=== PATIENT | female | born 1965 | race Caucasian/White ===

== ENCOUNTER 2022-08-14 08:16 | Outpatient (OUT) | payer MEDICARE, SELFPAY ==
--- NOTE | 2022-08-14 08:22 | MR_ITS ---
The [address] [address] Patient Name: YULI ORANTES MRN: [facility]:[id number] date: 1965 Sex: F Assigned Patient Location: MRI Current Patient Location: MRI Accession/Order Number: [id number] Exam Date: 08/14/2022 08:47 Report Date: 08/14/2022 15:36 At the request of: CLARK FERRIS Procedure: MR head/brain wo/w con PROCEDURE: MR head/brain wo/w con COMPARISON: None. HISTORY: Asymmetric Sensorineural Hearing Loss H90.3 ; chronic right sensorineural hearing loss, right ear pain TECHNIQUE: A variety of imaging planes and parameters were utilized for visualization of suspected pathology. Images were performed without and with intravenous Dotarem contrast. FINDINGS: IACS: No evidence of acoustic schwannoma or other posterior fossa mass. INNER EARS: No abnormal signal intensity. MIDDLE EARS: Partially filled with fluid and/or soft tissue. MASTOIDS: Majority of right mastoid air cells are filled with fluid or mucus. CEREBRUM: No edema, hemorrhage, mass, acute infarction, or inappropriate atrophy. CEREBELLUM: No edema, hemorrhage, mass, acute infarction, or inappropriate atrophy. BRAINSTEM: No edema, hemorrhage, mass, acute infarction, or inappropriate atrophy. CSF SPACES: Ventricles, cisterns, and sulci are appropriate for age. No hydrocephalus, subarachnoid hemorrhage, or mass. SINUSES: Limited views demonstrate no significant mucosal thickening or fluid. ORBITS: Limited views are unremarkable. OTHER: No abnormal meningeal or parenchymal enhancement. IMPRESSION: 1. Fluid-filled right mastoid air cells and fluid versus soft tissue filled right middle ear likely contributing to patient's symptoms. 2. No acoustic schwannoma. Electronically authenticated by: TOD EDGE Date: 08/14/2022 15:36
== END 2022-08-14 08:17 ==
LOC: MRI 08:17
PROVIDERS: PCP Family Medicine; Visit Provider Otolaryngology
DX: H90.3 Sensorineural hearing loss, bilateral (principal)
CPT/HCPCS: 70553; A9575

== ENCOUNTER 2022-09-28 09:48 | Outpatient (OUT) | payer MEDICARE, SELFPAY ==
--- NOTE | 2022-09-28 10:00 | ECG_ITS ---
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
--- NOTE | 2022-09-28 10:52 | P.GSHP_ITS ---
History of Present Illness History of Present Illness Chief complaint: right etd Narrative: Patient presents for preadmission testing. The patient reports a long history of fluid in her ears. She also has hearing loss. She denies fever, nausea, vomiting, headache, dizziness, or any other complaints. Review of Systems ROS Narrative REVIEW OF SYSTEMS: Negative except as stated in HPI, ten or more systems reviewed. Constitutional: No fever , chills, weakness ENT: No sore throat or epistaxis Cardiovascular: No edema, chest pain, palpitations, or activity intolerance Respiratory: No shortness of breath, cough, or wheezing Musculoskeletal: No joint pain or swelling Gastrointestinal: No abdominal pain, constipation, diarrhea, or vomiting Genitourinary: No dysuria or hematuria Neurological: No numbness, tingling, weakness, or headache Psychiatric: No mood changes PFSH PFS Medical History (Updated 09/28/22 @ 10:54 by Tawanna Patricio NP) (1982) Surgical History (Updated 09/28/22 @ 10:27 by Tawanna Patricio NP) (1982) Family History (Updated 09/28/22 @ 10:27 by Tawanna Patricio NP) Other Family history of gastric cancer Family history of lung cancer Social History (Updated 09/28/22 @ 10:21 by Tawanna Patricio NP) Within the past year, how often did you have a drink containing alcohol: monthly or less Smoking status: Never smoker Meds Home Medications and Allergies Home Medications Medication Instructions Recorded Confirmed Type amlodipine 10 mg tablet 10 mg PO QDAY 09/28/22 09/28/22 History buspirone 15 mg tablet 15 mg PO TID 09/28/22 09/28/22 History duloxetine 60 mg capsule,delayed 120 mg PO QDAY 09/28/22 09/28/22 History release hydroxyzine pamoate 50 mg capsule 50 mg PO Q8H 09/28/22 09/28/22 History (Vistaril) lamotrigine 100 mg tablet 100 mg PO Q12H 09/28/22 09/28/22 History lisinopril 20 1 tab PO DAILY 09/28/22 09/28/22 History mg-hydrochlorothiazide 25 mg tablet (Zestoretic) lovastatin 20 mg tablet 20 mg PO QDAY 09/28/22 09/28/22 History primidone 50 mg tablet 50 mg PO .as directed 09/28/22 09/28/22 History ropinirole 1 mg tablet 1 mg PO BID 09/28/22 09/28/22 History Allergies Allergy/AdvReac Type Severity Reaction Status Date / Time No Known Drug Allergies Allergy Verified 09/28/22 10:15 Exam Narrative Exam Narrative: Constitutional: Awake, alert, comfortable, well-appearing, nontoxic, interactive , vital signs as charted Head: Normocephalic, atraumatic Eyes: Conjunctiva and lids normal to inspection, pupils normal ENT: Bilateral tympanic membrane effusion, naris patent, posterior oropharynx cl ear, oral mucosa moist Neck: Supple, normal appearance, normal range of motion, no meningeal signs, no lymphadenopathy Respiratory: No respiratory distress, breath sounds clear Cardiovascular: Regular rate and rhythm, strong and regular heart tones Musculoskeletal: Normal gait, no swelling or edema Skin: No rashes or induration, no lesions, only visible skin inspected Neuro: No neurological deficits, normal sensation Psychiatric: Oriented ?3, normal affect Assessment and Plan Assessment and Plan (1) Hearing loss: (2) Dysfunction of right eustachian tube: Plan Right myringotomy and insertion of T-tube scheduled with Dr. Nye 10/06/2022.
[2022-09-28 11:15] LABS: Basophils Percent Auto 0.3 % (0.2-2.0); Eosinophils Absolute Auto 0.2 10^3/uL (0.0-0.7); Eosinophils Percent Auto 2.9 % (0.9-7.0); Hematocrit 41.1 % (36.0-48.0); Hemoglobin 13.3 g/dL (12.0-16.0); Immature Granulocytes Abs Auto 0.04 10^3/uL (0.00-0.03); Immature Granulocytes Pct Auto 0.5 % (0.0-0.5); Lymphocytes Absolute Auto 1.5 10^3/uL (1.2-3.8); Lymphocytes Percent Auto 19.7 % (20.5-60.0); Mean Corpuscular HGB Conc 32.4 g/dL (29.9-35.2); Mean Corpuscular Hemoglobin 28.4 pg (26.7-34.0); Mean Corpuscular Volume 87.8 fL (81.0-99.0); Monocytes Absolute Auto 0.5 10^3/uL (0.3-0.8); Monocytes Percent Auto 6.6 % (1.7-12.0); Neutrophils Absolute Auto 5.3 10^3/uL (1.4-6.5); Platelet Count 260 10^3/uL (150-450); Red Blood Count 4.68 10^6/uL (4.20-5.40); Red Cell Distribution Width 13.2 % (11.0-15.0); White Blood Count 7.5 10^3/uL (4.0-11.0)
== END 2022-09-28 09:49 | disposition home or self-care (01) ==
LOC: PST 09:50
PROVIDERS: PCP Family Medicine; Visit Provider Otolaryngology
DX: Z01.810 Encounter for preprocedural cardiovascular examination (principal); Z01.812 Encounter for preprocedural laboratory examination; H69.81 Other specified disorders of Eustachian tube, right ear
CPT/HCPCS: 36415; 85025; 93005; G0463

== ENCOUNTER 2022-10-06 09:02 | Day surgery (SDC) | payer MEDICARE, SELFPAY ==
[2022-09-28 10:21] VITALS: BP 144/83; PULSE 78; RESP 18; TEMP 36.3; O2SAT 94; BMI 51.6
[2022-10-06] VITALS (11 sets, daily range): BP systolic 112–173; BP diastolic 70–92; PULSE 78–93; RESP 14–26; TEMP 36.4–36.6; O2SAT 89–94; BMI 51.8
--- NOTE | 2022-10-06 | OP_ITS ---
OPERATION DATE: ??10/06/2022 PRIMARY CARE PHYSICIAN:? Harlan Ruiz D.O. SURGEON:? Suzanna Nye M.D. PREOPERATIVE DIAGNOSIS:? Right eustachian tube dysfunction and otitis media with effusion. POSTOPERATIVE DIAGNOSIS: Right eustachian tube dysfunction and otitis media with effusion. PROCEDURE:? Right myringotomy and tube with microdissection, placement of a modified Clem?s T-tube. ANESTHESIA:? General LMA. COMPLICATIONS:? None. FINDINGS:? Right clear middle ear effusion.? Due to clarity of the middle ear effusion, it was collected and sent to be tested for [id number], to rule out CSF in the middle ear. INDICATIONS:? This 57-year-old woman presented with right otitis media with effusion, unresponsive to aggressive medical management. PROCEDURE:? Patient identified in the holding area and taken back to the OR where she was placed in the supine position.? After induction of general anesthesia by LMA, the right ear was approached with the otomicroscope.? An anterior radial myringotomy was performed and the patient was noted to have a clear, colorless middle ear effusion.? A Venturi trap was then used to collect the middle ear effusion, to be tested for [id number].? A modified Clem?s T-tube was then folded and inserted through the myringotomy and opened in the middle ear using microdissection.? Patient tolerated the procedure well and she was awakened and taken to the recovery room in good condition. NOEMI
== END 2022-10-06 13:00 | disposition home or self-care (01) ==
PROVIDERS: PCP Family Medicine; Visit Provider Otolaryngology
PROC: (CPT 69436; principal; 2022-10-06 10:20)
DX: H69.81 Other specified disorders of Eustachian tube, right ear (principal); H65.91 Unspecified nonsuppurative otitis media, right ear; Z79.899 Other long term (current) drug therapy
CPT/HCPCS: 69436; 36415; 86335; 99999; J2704

== ENCOUNTER 2022-10-12 16:27 | Emergency (ER) | payer MEDICARE, SELFPAY ==
[2022-10-12] VITALS (12 sets, daily range): BP systolic 138–140; BP diastolic 72–96; PULSE 74–96; RESP 14–26; TEMP 36.9; O2SAT 90–96; BMI 38.5
--- NOTE | 2022-10-12 16:39 | XR_ITS ---
The [address] [address] Patient Name: YULI ORANTES MRN: [id number] date: 1965 Sex: F Assigned Patient Location: ER Current Patient Location: ER Accession/Order Number: [id number] Exam Date: 10/12/2022 17:22 Report Date: 10/12/2022 18:02 At the request of: DANIEL MALONEY Procedure: XR chest 2V EXAMINATION: XR chest 2V HISTORY: Cough and shortness of breath COMPARISON: None. TECHNIQUE: PA and lateral chest x-rays FINDINGS: The lung parenchyma is free of consolidation or infiltrate. No pneumothorax or pleural effusion. The cardiac, mediastinal and hilar contours are normal. The visualized osseous structures exhibit no gross abnormality. XR/XR chest 2V IMPRESSION: No acute cardiopulmonary abnormality. Electronically authenticated by: GINI COTA Date: 10/12/2022 18:02
--- NOTE | 2022-10-12 16:48 | ED.SOB1 ---
HPI - SOB/Dyspnea General Chief Complaint: Shortness of Breath/Dyspnea Stated Complaint: SHORTNESS OF BREATH Time Seen by Provider: 10/12/22 16:38 Source: patient Mode of arrival: walk-in History of Present Illness HPI Narrative: 49-year-old female presents for cough and shortness breath. She's had it for a week and she is coughing up brown phlegm. She has not had hemoptysis or fever. She took a home Covid test that was negative. She does not smoke and has no history of asthma. MD elicited complaint: shortness of breath, cough, chest pain and asthma attack Related Data Home Medications Medication Instructions Recorded Confirmed amlodipine 10 mg tablet 10 mg PO QDAY 09/28/22 10/06/22 buspirone 15 mg tablet 15 mg PO TID 09/28/22 10/06/22 duloxetine 60 mg capsule,delayed 120 mg PO QDAY 09/28/22 10/06/22 release hydroxyzine pamoate 50 mg capsule 50 mg PO Q8H 09/28/22 10/06/22 (Vistaril) lamotrigine 100 mg tablet 100 mg PO Q12H 09/28/22 10/06/22 lisinopril 20 1 tab PO DAILY 09/28/22 10/06/22 mg-hydrochlorothiazide 25 mg tablet (Zestoretic) lovastatin 20 mg tablet 20 mg PO QDAY 09/28/22 10/06/22 primidone 50 mg tablet 50 mg PO .as directed 09/28/22 10/06/22 ropinirole 1 mg tablet 1 mg PO BID 09/28/22 10/06/22 Previous Rx's Medication Instructions Recorded albuterol sulfate 90 mcg/actuation 1 inh inhalation Q6H PRN shortness 10/12/22 aerosol inhaler of breath or wheezing #6.7 grams azithromycin 250 mg tablet See Rx Instructions PO .COMPLEX #6 10/12/22 (Zithromax Z-Reilly) tabs benzonatate 200 mg capsule 200 mg PO TID PRN cough #20 caps 10/12/22 Allergies Allergy/AdvReac Type Severity Reaction Status Date / Time No Known Drug Allergies Allergy Verified 09/28/22 10:15 [facility] Medical History (Updated 10/12/22 @ 18:35 by Haider Beltran MD) (1982) Surgical History (Updated 09/28/22 @ 10:27 by Tawanna Patricio NP) (1982) Family History (Updated 09/28/22 @ 10:27 by Tawanna Patricio NP) Other Family history of gastric cancer Family history of lung cancer Social History (Updated 09/28/22 @ 10:21 by Tawanna Patricio NP) Within the past year, how often did you have a drink containing alcohol: monthly or less Smoking status: Never smoker Exam Narrative Exam Narrative: Nurses note and vital signs reviewed and patient is not hypoxic. General: The patient appears well and in no apparent distress. Patient is resting comfortably on cart. Skin: Warm, dry, no pallor noted. There is no rash noted. Head: Normocephalic, atraumatic Eye: Normal conjunctiva, no drainage Ears, Nose, Mouth, and Throat: oral mucosa is moist. Nares patent. Cardiovascular: Regular Rate and Rhythm Respiratory: bilateral rhonchi present Back: non-tender GI: ooften nontender Musculoskeletal: The patient has no evidence of calf tenderness, no pitting edema, symmetrical pulses noted bilaterally Neurological: A&O, normal speech Psychiatric: Cooperative Constitutional Vital Signs, click to edit/add: Last Vital Signs Temp 98.4 F 10/12/22 16:34 Pulse 74 10/12/22 17:11 Resp 16 10/12/22 17:51 BP 138/72 10/12/22 16:34 Pulse Ox 96 10/12/22 17:51 O2 Del Method Room Air 10/12/22 17:51 Course Vital Signs Vital signs: Vital Signs Temperature 98.4 F 10/12/22 16:34 Pulse Rate 82 10/12/22 16:34 Respiratory Rate 18 10/12/22 16:34 Blood Pressure 138/72 10/12/22 16:34 Pulse Oximetry 96 10/12/22 16:34 Oxygen Delivery Method Room Air 10/12/22 16:34 Temperature 98.4 F 10/12/22 16:34 Pulse Rate 74 10/12/22 17:11 Respiratory Rate 16 10/12/22 17:51 Blood Pressure 138/72 10/12/22 16:34 Pulse Oximetry 96 10/12/22 17:51 Oxygen Delivery Method Room Air 10/12/22 17:51 MDM - SOB/Dyspnea MDM Narrative Medical decision making narrative: Chest x-ray shows no acute findings. Breath sounds are improved with aerosol treatment and she is discharged home. Treatment diagnosis and follow-up were discussed with the patient. Differential Diagnosis Differential diagnosis: Likely community acquired pneumonia and asthma with exacerbation Imaging Data Chest x-ray: Radiologist's impression: no acute findings Discharge Plan Discharge Chief Complaint: Shortness of Breath/Dyspnea Clinical Impression: Acute upper respiratory infection Patient Disposition: Home, Self-Care Time of Disposition Decision: 18:34 Condition: Good Mode of Transportation: Private Vehicle Prescriptions / Home Meds: New azithromycin [Zithromax Z-Reilly] 250 mg tablet See Rx Instructions .ROUTE .COMPLEX Qty: 6 0RF Rx Instructions: For 250 mg dose pack: take 500 mg today (day 1), then 250 mg for 4 days (days 2-5) benzonatate 200 mg capsule 200 mg PO TID PRN (Reason: cough) Qty: 20 0RF albuterol sulfate 90 mcg/actuation HFA aerosol inhaler 1 inh inhalation Q6H PRN (Reason: shortness of breath or wheezing) Qty: 6.7 0RF No Action duloxetine 60 mg capsule,delayed release(DR/EC) 120 mg PO QDAY ropinirole 1 mg tablet 1 mg PO BID buspirone 15 mg tablet 15 mg PO TID primidone 50 mg tablet 50 mg PO .as directed lamotrigine 100 mg tablet 100 mg PO Q12H lisinopril-hydrochlorothiazide [Zestoretic] 20-25 mg tablet 1 tab PO DAILY amlodipine 10 mg tablet 10 mg PO QDAY lovastatin 20 mg tablet 20 mg PO QDAY hydroxyzine pamoate [Vistaril] 50 mg capsule 50 mg PO Q8H Instructions: Upper Respiratory Infection (ED) Stand Alone Forms: Portal Instructions Referrals: DENNIS ALMEIDA [Primary Care Provider] - 1 week
[2022-10-12] MEDS: ALBUTEROL SULFATE 2.5 MG/3 ML VIAL NEB IH (17:10)
== END 2022-10-12 18:51 | disposition home or self-care (01) ==
PROVIDERS: Emergency Provider Emergency Medicine; PCP Family Medicine
DX: J06.9 Acute upper respiratory infection, unspecified (principal); Z79.899 Other long term (current) drug therapy
CPT/HCPCS: 71046; 94640; 99283

== ENCOUNTER 2022-10-16 09:16 | Outpatient (OUT) | payer MEDICARE, SELFPAY ==
--- NOTE | 2022-10-16 09:31 | CT_ITS ---
[address] [address] Patient Name: YULI ORANTES MRN: [facility]:[id number] date: 1965 Sex: F Assigned Patient Location: CT Current Patient Location: Accession/Order Number: [id number] Exam Date: 10/16/2022 09:40 Report Date: 10/22/2022 12:57 At the request of: CLARK FERRIS Procedure: CT int auditory canals w/o con EXAMINATION: CT int auditory canals w/o con HISTORY: Cerebrospinal fluid otorrhea G96.01 COMPARISON: No relevant comparison available. TECHNIQUE: Thin section Axial and Coronal CT images created without and with IV contrast. Dose reduction techniques were achieved by using automated exposure control and/or adjustment of mA and/or kV according to patient size and/or use of iterative reconstruction technique. FINDINGS: RIGHT EXTERNAL CANAL: No significant stenosis or soft tissue abnormality. TYMPANIC MEMBRANE: Slight thickening compared to left side with tiny focal opening suspected to represent tube placement. OSSICLES: No bony erosion. WINDOWS: No visible narrowing. MIDDLE EAR: Minimal mucosal thickening and small amount of fluid within the dependent posterior aspect. MASTOID: Numerous fluid-filled mastoid air cells which appear to connect to the posterior aspect of the middle ear. INNER EAR: No dehiscence or labyrinthine ossificans. FACIAL CANAL: No appreciable dehiscence or anomalies. IAC: No expansion or asymmetry. JUGULAR FORAMEN: No visible expansion or erosion. CAROTID CANAL: No erosion. LEFT EXTERNAL CANAL: No significant stenosis or soft tissue abnormality. TYMPANIC MEMBRANE: No visible thickening or retraction. OSSICLES: No bony erosion. WINDOWS: No visible narrowing. MIDDLE EAR: No abnormal soft tissue or fluid. MASTOID: No fluid, sclerosis, or soft tissue abnormality. INNER EAR: No dehiscence or labyrinthine ossificans. FACIAL CANAL: No dehiscence or anomalies. IAC: No expansion or asymmetry. JUGULAR FORAMEN: No visible expansion or erosion. CAROTID CANAL: No erosion. OTHER: No additional findings. CT/CT int auditory canals w/o con IMPRESSION: 1. Multiple fluid filled mastoid air cells; mastoiditis? 2. Small amount of fluid within posterior middle ear which appears to connect to the mastoid air cells and may account for the continued drainage. 3. Slight asymmetric thickening of the right tympanic membrane compared to left; inflammatory versus scarring. Electronically authenticated by: TOD EDGE Date: 10/22/2022 12:57
== END 2022-10-16 09:17 | disposition home or self-care (01) ==
LOC: CT 09:16
PROVIDERS: PCP Family Medicine; Visit Provider Otolaryngology
DX: G96.01 Cranial cerebrospinal fluid leak, spontaneous (principal)
CPT/HCPCS: 70480

== ENCOUNTER 2022-11-24 13:34 | Outpatient (OUT) | payer MEDICARE, SELFPAY ==
--- NOTE | 2022-11-24 14:06 | CA_ITS ---
Patient: YULI ORANTES Exam Date: 11/24/2022 : 1965 Gender:F Ordering : DR OLAF ANGUIANO Admission #: [id number] Family : Order #: [id number] CLICK HERE TO VIEW EXAM ECHOCARDIOGRAM REPORT PROCEDURE: CA ECHO DOPPLER COMPLETE INDICATIONS: Dyspnea on exertion, hypertension, diabetes COMPARISON: None. DESCRIPTION: COMPLETE ECHOCARDIOGRAM Real-time transthoracic echocardiography with 2D, M-mode, spectral and color flow Doppler performed. QUALITY: Technically difficult due to patient's condition. LEFT VENTRICLE: Normal chamber size. Normal left ventricular wall thickness. LV EF: Global left ventricular systolic function is difficult to assess but appears preserved; visually estimated ejection fraction is 55 to 60%. Cannot assess regional wall motion abnormality; consider contrast study for better delineation of endocardial borders. DIASTOLIC: Normal diastolic function. ATRIAL SEPTUM: Inadequately seen. LEFT ATRIUM: Normal chamber size. RIGHT ATRIUM: Normal chamber size. RIGHT VENTRICLE: Poorly seen. Normal chamber size. Systolic function appears preserved. TRICUSPID VALVE: Normal mobility and thickness. No regurgitation. Unable to assess right sided pressures due to lack of measurable tricuspid regurgitation. MITRAL VALVE: Normal mobility and thickness. No evidence of mitral valve stenosis. There is no mitral annular calcification. Trivial mitral regurgitation. AORTIC VALVE: Normal trileaflet appearance. Thickened aortic valve. Normal leaflet mobility. No evidence of aortic valve stenosis. No aortic regurgitation. AORTIC ROOT: Normal diameter and appearance. PULMONIC VALVE: Not well visualized. No stenosis. No regurgitation. PERICARDIUM: No evidence of pericardial effusion. IVC: Collapses with inspirations. IVC is normal in size. CONCLUSION: 1. Global left ventricular systolic function is difficult to assess but appears preserved; visually estimated ejection fraction 65 to 60% 2. Cannot assess regional wall motion abnormalitird; consider contrast study for better delineation of endocardial borders 3. Normal diastolic function 4. The right ventricle is poorly seen but appears normal in size and systolic function 5. Valvular structures are poorly seen; no obvious significant valvular abnormalities Adult Echocardiography Procedure Report Left Ventricle LVEDD (3.7 - 5.6 cm): 4.54 cm LVESD (2.2 - 4.0 cm): 2.85 cm LVIVS thickness (0.6 - 1.2 cm): 1.07 cm LVPW thickness (0.5 - 1.0 cm): 1.00 cm e': 0.15 m/s E - e': 5.43 LVOT Max Gradient: 4.42 mm[Hg] LVOT Area (cm2): 1.05 m/s Peak Velocity (LVOT): 1.05 m/s LVOT Diameter 1.98 cm Left Atrium LA Volume Index (2D A2C): 20.58 ml/m2 Left Atrium Systolic Dimension: 3.63 cm Mitral Valve MV E to A Ratio: 1.06 Mitral Valve A-Wave Peak Velocity: 0.74 m/s Mitral Valve E-Wave Peak Velocity: 0.79 m/s Right Ventricle Aorta AO Root Diam: 2.85 cm Aortic Valve AoV Area (Peak Ivcente): 2.13 cm2, 2.13 cm2 Peak Velocity(Antegrade Flow): 1.51 m/s Peak Gradient(Antegrade Flow): 9.15 mm[Hg] Tricuspid Valve Pulmonic Valve Mean Gradient: 3.77 mm[Hg], 3.54 mm[Hg], 4.17 mm[Hg], 3.46 mm[Hg] Mean Velocity: 0.92 m/s, 0.88 m/s, 0.96 m/s, 0.87 m/s Peak Velocity: 1.24 m/s Peak Gradient: 5.68 mm[Hg], 5.99 mm[Hg], 7.06 mm[Hg], 5.99 mm[Hg] Right Atrium Right Atrium Systolic Pressure: 57.06 ml, 57.06 ml Dictated by: Jose Quiñones M.D. on 11/27/2022 at 14:50 Approved by: Jose Quiñones M.D. on 11/27/2022 at 14:53
== END 2022-11-24 13:35 | disposition home or self-care (01) ==
LOC: CARD 13:35
PROVIDERS: PCP Family Medicine; Visit Provider Nurse Practitioner Family
DX: R06.09 Other forms of dyspnea (principal)
CPT/HCPCS: 93306

== ENCOUNTER 2023-01-05 17:59 | Emergency (ER) | payer MEDICARE, SELFPAY ==
[2023-01-05 18:03] VITALS: BP 132/90; PULSE 99; RESP 18; TEMP 36.4; O2SAT 91; BMI 53.9
[2023-01-05 19:23] VITALS: BP 150/93; PULSE 88; RESP 20; TEMP 36.7; O2SAT 95; BMI 53.9
--- NOTE | 2023-01-05 19:50 | CT_ITS ---
[address] [address] Patient Name: YULI ORANTES MRN: [facility]:[id number] date: 1965 Sex: F Assigned Patient Location: ER Current Patient Location: ER Accession/Order Number: [id number] Exam Date: 01/05/2023 20:06 Report Date: 01/05/2023 21:01 At the request of: MANUEL MORENO Procedure: CT head/brain wo con EXAM: CT head/brain wo con HISTORY: headache COMPARISON: MRI brain 08/14/2022 TECHNIQUE: Axial CT scans through the head were obtained without IV contrast administration. Dose reduction techniques were achieved by using: automated exposure control and/or adjustment of mA and /or kV according to patient size and/or use of iterative reconstruction technique. FINDINGS: There is no acute intracranial hemorrhage or abnormal extra-axial fluid collection. No mass effect or midline shift is seen. There is no evidence of large acute territorial infarction. There is no hydrocephalus. To the limit of CT, the posterior fossa appears unremarkable. The calvaria and extra cranial soft tissues are unremarkable. The visualized orbits show no abnormal mass. There is small air-fluid level and frothy secretions in the partially visualized right maxillary sinus. There is partial opacification of right-sided external auditory canal, middle ear cavity, eustachian tube, aditus ad antrum and mastoid air cells. CT/CT head/brain wo con IMPRESSION: No acute intracranial process. Small air-fluid level and frothy secretions in the partially visualized right maxillary sinus, consistent with acute sinusitis. Partial opacification of right-sided external auditory canal, middle ear cavity, eustachian tube, aditus ad antrum and mastoid air cells, could be related to mastoiditis and otitis media/cholesteatoma. Direct visualization is recommended for further evaluation.. Electronically authenticated by: LEBRON GARCIA Date: 01/05/2023 21:01
--- NOTE | 2023-01-05 19:53 | ED.GENADUL1 ---
Documented by User: PAVAN Thompson 01/05/23 21:19 HPI - General Adult General Chief complaint: Headache Stated complaint: Headache Time Seen by Provider: 01/05/23 18:07 Source: patient Mode of arrival: walk-in Limitations: no limitations History of Present Illness HPI narrative: 57-year-old female presents with a frontal headache and right ear pain for the past 2 days. No history of headaches and headache was gradual in onset. Denies thunderclap headache. She states that she had a tube placed by Dr. Nye a year ago that is been draining for the past year and drainage was tested and came back positive for spinal fluid. She states that she has surgery planned in a couple of months to remove part of her bone in her scalp due to a hole in her head. She is complaining of right-sided neck pain. Admits to photophobia. Denies fever, dizziness, vision changes, n/v Related Data Home Medications Medication Instructions Recorded Confirmed amlodipine 10 mg tablet 10 mg PO QDAY 09/28/22 10/06/22 buspirone 15 mg tablet 15 mg PO TID 09/28/22 10/06/22 duloxetine 60 mg capsule,delayed 120 mg PO QDAY 09/28/22 10/06/22 release hydroxyzine pamoate 50 mg capsule 50 mg PO Q8H 09/28/22 10/06/22 (Vistaril) lamotrigine 100 mg tablet 100 mg PO Q12H 09/28/22 10/06/22 lisinopril 20 1 tab PO DAILY 09/28/22 10/06/22 mg-hydrochlorothiazide 25 mg tablet (Zestoretic) lovastatin 20 mg tablet 20 mg PO QDAY 09/28/22 10/06/22 primidone 50 mg tablet 50 mg PO .as directed 09/28/22 10/06/22 ropinirole 1 mg tablet 1 mg PO BID 09/28/22 10/06/22 Previous Rx's Medication Instructions Recorded albuterol sulfate 90 mcg/actuation 1 inh inhalation Q6H PRN shortness 10/12/22 aerosol inhaler of breath or wheezing #6.7 grams azithromycin 250 mg tablet See Rx Instructions PO .COMPLEX #6 10/12/22 (Zithromax Z-Reilly) tabs benzonatate 200 mg capsule 200 mg PO TID PRN cough #20 caps 10/12/22 amoxicillin 875 mg-potassium 1 tab PO Q12H 10 days #20 tabs 01/05/23 clavulanate 125 mg tablet Allergies Allergy/AdvReac Type Severity Reaction Status Date / Time No Known Drug Allergies Allergy Verified 01/05/23 19:23 Review of Systems ROS Status of ROS 10 or more systems reviewed and unremarkable except as noted in history and below PFSH PFSH Medical History (Updated 01/05/23 @ 21:15 by PAVAN Thompson) Anxiety ?F41.9 - Anxiety disorder, unspecified (ICD-10) Arthritis ?M19.90 - Unspecified osteoarthritis, unspecified site (ICD-10) Bipolar disorder ?F31.9 - Bipolar disorder, unspecified (ICD-10) Depression ?F32.A - Depression, unspecified (ICD-10) Dysfunction of both eustachian tubes ?H69.93 - Unspecified Eustachian tube disorder, bilateral (ICD-10) Dysfunction of right eustachian tube ?H69.91 - Unspecified Eustachian tube disorder, right ear (ICD-10) Hearing loss ?H91.90 - Unspecified hearing loss, unspecified ear (ICD-10) High cholesterol ?E78.00 - Pure hypercholesterolemia, unspecified (ICD-10) Hypertension ?I10 - Essential (primary) hypertension (ICD-10) Lung mass (1982) ?R91.8 - Other nonspecific abnormal finding of lung field (ICD-10) OCD (obsessive compulsive disorder) ?F42.9 - Obsessive-compulsive disorder, unspecified (ICD-10) Surgical History (Updated 09/28/22 @ 10:27 by Tawanna Patricio NP) History of arthroscopy of knee ?Z98.890 - Other specified postprocedural states (ICD-10) History of section ?Z98.891 - History of uterine scar from previous surgery (ICD-10) History of cholecystectomy ?Z90.49 - Acquired absence of other specified parts of digestive tract (ICD-10) History of colonoscopy ?Z98.890 - Other specified postprocedural states (ICD-10) History of foot surgery ?Z98.890 - Other specified postprocedural states (ICD-10) History of hysterectomy ?Z90.710 - Acquired absence of both cervix and uterus (ICD-10) History of lung biopsy (1982) ?Z98.890 - Other specified postprocedural states (ICD-10) Family History (Updated 09/28/22 @ 10:27 by Tawanna Patricio NP) Other Family history of gastric cancer Family history of lung cancer Social History (Updated 09/28/22 @ 10:21 by Tawanna Patricio NP) Within the past year, how often did you have a drink containing alcohol: monthly or less Smoking status: Never smoker Exam Narrative Exam Narrative: General: alert, no distress, talking in full an complete sentences skin: warm, dry, intact head: normocephalic, atraumatic eyes: PERRLA, EOMI, normal conjunctiva ears: Clear drainage from the right ear canal and unable to visualize TM, external ear normal nose: nares patent throat: no stridor, uvula midline neck: supple, trachea midline cardiac: +S1/S1. no murmur respiratory: lungs CTA, non-labored, no wheezing, no retractions extremities: FROM x 4, strength +5/5 neuro: A&Ox3 psych: appropriate mood and affect, cooperative Constitutional Vital Signs, click to edit/add: Last Vital Signs Temp 98.1 F 01/05/23 19:23 Pulse 85 01/05/23 21:17 Resp 22 01/05/23 21:17 BP 134/82 01/05/23 21:26 Pulse Ox 95 01/05/23 21:17 O2 Del Method Room Air 01/05/23 19:23 Course Vital Signs Vital signs: Vital Signs Temperature 97.6 F 01/05/23 18:03 Pulse Rate 99 H 01/05/23 18:03 Respiratory Rate 18 01/05/23 18:03 Blood Pressure 132/90 01/05/23 18:03 Pulse Oximetry 91 L 01/05/23 18:03 Oxygen Delivery Method Room Air 01/05/23 18:03 Temperature 98.1 F 01/05/23 19:23 Pulse Rate 85 01/05/23 21:17 Respiratory Rate 22 01/05/23 21:17 Blood Pressure 134/82 01/05/23 21:26 Pulse Oximetry 95 01/05/23 21:17 Oxygen Delivery Method Room Air 01/05/23 19:23 Medical Decision Making MDM Narrative Medical decision making narrative: Dr. Nye consulted who states that she has CSF otorrhea and recommends transfer to facility as that is where she is having her surgical intervention. Blood cultures pending. Patient is fully moving her neck and does not have any nuchal rigidity. patient states that this is not scheduled for another 2 months. Patient is complaining of pain will be given Almont. WBC 12.4. ESR 82. CRP 2.9. No acute findings on final read of chest x-ray. Respiratory panel negative. Final read of head CT without contrast shows small air-fluid level and frothy secretions in the right maxillary sinus consistent with acute sinusitis. Was also addressed a possible mastoiditis or acute otitis media. She does not have mastoid tenderness. She will be given a dose of Toradol. Per Dr. Peck, will give a dose of Unasyn here and a prescription for Augmentin and follow-up with ENT. F/u with PCP. afebrile, not tachypneic, not tachycardic, tolerating p.o., not hypoxic, non toxic appearing and ambulating at baseline and hemodynamically stable to be d/c. answered all questions. educated on SE of meds. pt in agreement with tx. educated when to return to ER. Lab Data Lab results reviewed: Yes I reviewed the patient's lab results Labs: Lab Results 01/05/23 01/05/23 Range/Units 20:05 20:19 WBC 12.4 H (4.0-11.0) 10^3/uL RBC 5.08 (4.20-5.40) 10^6/uL Hgb 14.6 (12.0-16.0) g/dL Hct 45.6 (36.0-48.0) % MCV 89.8 (81.0-99.0) fL MCH 28.7 (26.7-34.0) pg MCHC 32.0 (29.9-35.2) g/dL RDW 13.5 (11.0-15.0) % Plt Count 304 (150-450) 10^3/uL MPV 9.3 L (9.5-13.5) fL Neut % (Auto) 70.8 (43.0-75.0) % Lymph % (Auto) 19.2 L (20.5-60.0) % Harrison % (Auto) 7.4 (1.7-12.0) % Eos % (Auto) 2.1 (0.9-7.0) % Baso % (Auto) 0.3 (0.2-2.0) % Neut # (Auto) 8.7 H (1.4-6.5) 10^3/uL Lymph # (Auto) 2.4 (1.2-3.8) 10^3/uL Harrison # (Auto) 0.9 H (0.3-0.8) 10^3/uL Eos # (Auto) 0.3 (0.0-0.7) 10^3/uL Baso # (Auto) 0.0 (0.0-0.1) 10^3/uL Abs Immat Gran (auto) 0.03 (0.00-0.03) 10^3/uL Imm/Tot Granulo (auto) 0.2 (0.0-0.5) % ESR 82 H (<=30) mm/hr Sodium 135 L (136-145) mmol/L Potassium 3.9 (3.5-5.1) mmol/L Chloride 97 L (98-107) mmol/L Carbon Dioxide 32.0 (21.0-32.0) mmol/L Anion Gap 9.9 BUN 21.0 H (7.0-18.0) mg/dL Creatinine 0.74 (0.55-1.02) mg/dL Est GFR ( Amer) >60 (>=60) Est GFR (Non-Af Amer) >60 (>=60) BUN/Creatinine Ratio 28.4 Glucose 93 (74-106) mg/dL Lactate 1.2 (0.4-2.0) mmol/L Calcium 10.0 (8.5-10.1) mg/dL Total Bilirubin 0.3 (0.2-1.0) mg/dL AST 20 (15-37) U/L ALT 27 (14-59) U/L Alkaline Phosphatase 83 (46-116) U/L C-Reactive Protein 2.9 H (<=1.0) mg/dL Total Protein 8.6 H (6.4-8.2) g/dL Albumin 3.9 (3.4-5.0) g/dL Globulin 4.7 g/dL Albumin/Globulin Ratio 0.8 Adenovirus (PCR) Not detected (NOT DETECTE) C. pneumoniae DNA (PCR) Not detected (NOT DETECTE) Coronavirus Type OC43 Not detected (NOT DETECTE) Coronavirus Type HKU1 Not detected (NOT DETECTE) Coronavirus Type 229E Not detected (NOT DETECTE) Coronavirus Type NL63 Not detected (NOT DETECTE) Human Metapneumovir PCR Not detected (NOT DETECTE) M. pneumoniae (PCR) Not detected (NOT DETECTE) Parainfluenza PCR Not detected (NOT DETECTE) Parainfluenza 2 (PCR) Not detected (NOT DETECTE) Parainfluenza 3 (PCR) Not detected (NOT DETECTE) Parainfluenza 4 (PCR) Not detected (NOT DETECTE) RSV (RT-PCR) Not detected (NOT DETECTE) Entero/Rhino (PCR) Not detected (NOT DETECTE) SARS-CoV-2 (PCR) Not detected (NOT DETECTE) Bordetella pertussis (PCR) Not detected (NOT DETECTE) B parapertussis DNA PCR Not detected (NOT DETECTE) Influenza Type A (PCR) Not detected (NOT DETECTE) Influenza Type B (PCR) Not detected (NOT DETECTE) Imaging Data CT scan - head: Attestation: I have reviewed the pertinent imaging results. Radiologist's impression: CT/CT head/brain wo con IMPRESSION: No acute intracranial process. Small air-fluid level and frothy secretions in the partially visualized right maxillary sinus, consistent with acute sinusitis. Partial opacification of right-sided external auditory canal, middle ear cavity, eustachian tube, aditus ad antrum and mastoid air cells, could be related to mastoiditis and otitis media/cholesteatoma. Direct visualization is recommended for further evaluation.. Chest x-ray: Attestation: I have reviewed the pertinent imaging results. Radiologist's impression: XR/XR chest 1V IMPRESSION: No acute cardiopulmonary abnormality. Discharge Plan Discharge Chief Complaint: Headache Clinical Impression: CSF otorrhea Headache Qualifiers: Headache type: unspecified Headache chronicity pattern: acute headache Intractability: not intractable Qualified Code(s): R51.9 - Headache, unspecified Acute maxillary sinusitis Qualifiers: Recurrence: non-recurrent Qualified Code(s): J01.00 - Acute maxillary sinusitis, unspecified Otitis media Qualifiers: Otitis media type: unspecified Chronicity: acute Qualified Code(s): H66.90 - Otitis media, unspecified, unspecified ear Patient Disposition: Home, Self-Care Time of Disposition Decision: 21:14 Condition: Good Mode of Transportation: Private Vehicle Prescriptions / Home Meds: New amoxicillin-pot clavulanate 875-125 mg tablet 1 tab PO Q12H 10 Days Qty: 20 0RF No Action duloxetine 60 mg capsule,delayed release(DR/EC) 120 mg PO QDAY ropinirole 1 mg tablet 1 mg PO BID buspirone 15 mg tablet 15 mg PO TID primidone 50 mg tablet 50 mg PO .as directed lamotrigine 100 mg tablet 100 mg PO Q12H lisinopril-hydrochlorothiazide [Zestoretic] 20-25 mg tablet 1 tab PO DAILY amlodipine 10 mg tablet 10 mg PO QDAY lovastatin 20 mg tablet 20 mg PO QDAY hydroxyzine pamoate [Vistaril] 50 mg capsule 50 mg PO Q8H azithromycin [Zithromax Z-Reilly] 250 mg tablet See Rx Instructions .ROUTE .COMPLEX Qty: 6 0RF Rx Instructions: For 250 mg dose pack: take 500 mg today (day 1), then 250 mg for 4 days (days 2-5) benzonatate 200 mg capsule 200 mg PO TID PRN (Reason: cough) Qty: 20 0RF albuterol sulfate 90 mcg/actuation HFA aerosol inhaler 1 inh inhalation Q6H PRN (Reason: shortness of breath or wheezing) Qty: 6.7 0RF Instructions: Sinusitis (ED), Acute Headache (ED) Stand Alone Forms: Portal Instructions Referrals: DENNIS ALMEIDA [Primary Care Provider] - 1 week Suzanna Nye MD [Physician] - As soon as possible Discharge Date/Time: 01/05/23 22:42 Documented by User: Phyllis Peck MD 01/06/23 02:54 HPI - General Adult General Chief complaint: Headache Stated complaint: Headache Time Seen by Provider: 01/05/23 18:07 Related Data Home Medications Medication Instructions Recorded Confirmed amlodipine 10 mg tablet 10 mg PO QDAY 09/28/22 10/06/22 buspirone 15 mg tablet 15 mg PO TID 09/28/22 10/06/22 duloxetine 60 mg capsule,delayed 120 mg PO QDAY 09/28/22 10/06/22 release hydroxyzine pamoate 50 mg capsule 50 mg PO Q8H 09/28/22 10/06/22 (Vistaril) lamotrigine 100 mg tablet 100 mg PO Q12H 09/28/22 10/06/22 lisinopril 20 1 tab PO DAILY 09/28/22 10/06/22 mg-hydrochlorothiazide 25 mg tablet (Zestoretic) lovastatin 20 mg tablet 20 mg PO QDAY 09/28/22 10/06/22 primidone 50 mg tablet 50 mg PO .as directed 09/28/22 10/06/22 ropinirole 1 mg tablet 1 mg PO BID 09/28/22 10/06/22 Previous Rx's Medication Instructions Recorded albuterol sulfate 90 mcg/actuation 1 inh inhalation Q6H PRN shortness 10/12/22 aerosol inhaler of breath or wheezing #6.7 grams azithromycin 250 mg tablet See Rx Instructions PO .COMPLEX #6 10/12/22 (Zithromax Z-Reilly) tabs benzonatate 200 mg capsule 200 mg PO TID PRN cough #20 caps 10/12/22 amoxicillin 875 mg-potassium 1 tab PO Q12H 10 days #20 tabs 01/05/23 clavulanate 125 mg tablet Allergies Allergy/AdvReac Type Severity Reaction Status Date / Time No Known Drug Allergies Allergy Verified 01/05/23 19:23 [facility] Medical History (Updated 01/05/23 @ 21:15 by PAVAN Thompson) Anxiety ?F41.9 - Anxiety disorder, unspecified (ICD-10) Arthritis ?M19.90 - Unspecified osteoarthritis, unspecified site (ICD-10) Bipolar disorder ?F31.9 - Bipolar disorder, unspecified (ICD-10) Depression ?F32.A - Depression, unspecified (ICD-10) Dysfunction of both eustachian tubes ?H69.93 - Unspecified Eustachian tube disorder, bilateral (ICD-10) Dysfunction of right eustachian tube ?H69.91 - Unspecified Eustachian tube disorder, right ear (ICD-10) Hearing loss ?H91.90 - Unspecified hearing loss, unspecified ear (ICD-10) High cholesterol ?E78.00 - Pure hypercholesterolemia, unspecified (ICD-10) Hypertension ?I10 - Essential (primary) hypertension (ICD-10) Lung mass (1982) ?R91.8 - Other nonspecific abnormal finding of lung field (ICD-10) OCD (obsessive compulsive disorder) ?F42.9 - Obsessive-compulsive disorder, unspecified (ICD-10) Surgical History (Updated 09/28/22 @ 10:27 by Tawanna Patricio NP) History of arthroscopy of knee ?Z98.890 - Other specified postprocedural states (ICD-10) History of section ?Z98.891 - History of uterine scar from previous surgery (ICD-10) History of cholecystectomy ?Z90.49 - Acquired absence of other specified parts of digestive tract (ICD-10) History of colonoscopy ?Z98.890 - Other specified postprocedural states (ICD-10) History of foot surgery ?Z98.890 - Other specified postprocedural states (ICD-10) History of hysterectomy ?Z90.710 - Acquired absence of both cervix and uterus (ICD-10) History of lung biopsy (1982) ?Z98.890 - Other specified postprocedural states (ICD-10) Family History (Updated 09/28/22 @ 10:27 by Tawanna Patricio NP) Other Family history of gastric cancer Family history of lung cancer Social History (Updated 09/28/22 @ 10:21 by Tawanna Patricio NP) Within the past year, how often did you have a drink containing alcohol: monthly or less Smoking status: Never smoker Exam Constitutional Vital Signs, click to edit/add: Last Vital Signs Temp 98.1 F 01/05/23 19:23 Pulse 85 01/05/23 21:17 Resp 22 01/05/23 21:17 BP 134/82 01/05/23 21:26 Pulse Ox 95 01/05/23 21:17 O2 Del Method Room Air 01/05/23 19:23 Course Vital Signs Vital signs: Vital Signs Temperature 97.6 F 01/05/23 18:03 Pulse Rate 99 H 01/05/23 18:03 Respiratory Rate 18 01/05/23 18:03 Blood Pressure 132/90 01/05/23 18:03 Pulse Oximetry 91 L 01/05/23 18:03 Oxygen Delivery Method Room Air 01/05/23 18:03 Temperature 98.1 F 01/05/23 19:23 Pulse Rate 85 01/05/23 21:17 Respiratory Rate 22 01/05/23 21:17 Blood Pressure 134/82 01/05/23 21:26 Pulse Oximetry 95 01/05/23 21:17 Oxygen Delivery Method Room Air 01/05/23 19:23 Medical Decision Making MDM Narrative Medical decision making narrative: Dr. Nye consulted who states that she has CSF otorrhea and recommends transfer to facility as that is where she is having her surgical intervention. Blood cultures pending. Patient is fully moving her neck and does not have any nuchal rigidity. patient states that this is not scheduled for another 2 months. Patient is complaining of pain will be given Almont. WBC 12.4. ESR 82. CRP 2.9. No acute findings on final read of chest x-ray. Respiratory panel negative. Final read of head CT without contrast shows small air-fluid level and frothy secretions in the right maxillary sinus consistent with acute sinusitis. Was also addressed a possible mastoiditis or acute otitis media. She does not have mastoid tenderness. She will be given a dose of Toradol. Per Dr. Peck, will give a dose of Unasyn here and a prescription for Augmentin and follow-up with ENT. F/u with PCP. afebrile, not tachypneic, not tachycardic, tolerating p.o., not hypoxic, non toxic appearing and ambulating at baseline and hemodynamically stable to be d/c. answered all questions. educated on SE of meds. pt in agreement with tx. educated when to return to ER. Patient was seen and examined in conjunction with the physician assistants. 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 She has been seen by ENT at [facility] in [place], [place] with recommendation for a surgical procedure that is planned to be done in February. The patient states she has a bifrontal headache behind her eyes. There is also some right-sided ear pain and the drainage that she has been having associated with her CSF leak. She denies any change in the color of the drainage. She denies any fevers or chills. She has no nuchal rigidity and easily moves her head back and forth up and down with no discomfort with chin to chest. We did discuss this with Dr. Nye who has not seen the patient and did not evaluate her but thought that she could be experiencing meningitis and should be transferred to [facility]. I discussed this with the patient who does not feel that she is in that much pain or in general is sick. She did agree to some blood work. Her CBC with differential shows a white count of 12.4. She has elevated inflammatory markers with a normal lactic acid, normal electrolytes, blood cultures are pending. She was medicated with oral Zofran and Almont without clinical improvement in her headache at which time an IV was placed and she was medicated with IV fluids and Toradol as well as 3 g of IV Unasyn when her CT scan showed the air-fluid level in frothy secretions in the right maxillary sinus. The patient feels comfortable being discharged home. She will follow-up as an outpatient and receive a prescription for ibuprofen 600 mg and Augmentin to use for the next 10 days. She was strongly encouraged to return to emergency department for fevers, worsening pain, photophobia dizziness or any nuchal rigidity/neck pain or stiffness. She is in agreement with this plan. Lab Data Labs: Lab Results 01/05/23 01/05/23 Range/Units 20:05 20:19 WBC 12.4 H (4.0-11.0) 10^3/uL RBC 5.08 (4.20-5.40) 10^6/uL Hgb 14.6 (12.0-16.0) g/dL Hct 45.6 (36.0-48.0) % MCV 89.8 (81.0-99.0) fL MCH 28.7 (26.7-34.0) pg MCHC 32.0 (29.9-35.2) g/dL RDW 13.5 (11.0-15.0) % Plt Count 304 (150-450) 10^3/uL MPV 9.3 L (9.5-13.5) fL Neut % (Auto) 70.8 (43.0-75.0) % Lymph % (Auto) 19.2 L (20.5-60.0) % Harrison % (Auto) 7.4 (1.7-12.0) % Eos % (Auto) 2.1 (0.9-7.0) % Baso % (Auto) 0.3 (0.2-2.0) % Neut # (Auto) 8.7 H (1.4-6.5) 10^3/uL Lymph # (Auto) 2.4 (1.2-3.8) 10^3/uL Harrison # (Auto) 0.9 H (0.3-0.8) 10^3/uL Eos # (Auto) 0.3 (0.0-0.7) 10^3/uL Baso # (Auto) 0.0 (0.0-0.1) 10^3/uL Abs Immat Gran (auto) 0.03 (0.00-0.03) 10^3/uL Imm/Tot Granulo (auto) 0.2 (0.0-0.5) % ESR 82 H (<=30) mm/hr Sodium 135 L (136-145) mmol/L Potassium 3.9 (3.5-5.1) mmol/L Chloride 97 L (98-107) mmol/L Carbon Dioxide 32.0 (21.0-32.0) mmol/L Anion Gap 9.9 BUN 21.0 H (7.0-18.0) mg/dL Creatinine 0.74 (0.55-1.02) mg/dL Est GFR ( Amer) >60 (>=60) Est GFR (Non-Af Amer) >60 (>=60) BUN/Creatinine Ratio 28.4 Glucose 93 (74-106) mg/dL Lactate 1.2 (0.4-2.0) mmol/L Calcium 10.0 (8.5-10.1) mg/dL Total Bilirubin 0.3 (0.2-1.0) mg/dL AST 20 (15-37) U/L ALT 27 (14-59) U/L Alkaline Phosphatase 83 (46-116) U/L C-Reactive Protein 2.9 H (<=1.0) mg/dL Total Protein 8.6 H (6.4-8.2) g/dL Albumin 3.9 (3.4-5.0) g/dL Globulin 4.7 g/dL Albumin/Globulin Ratio 0.8 Adenovirus (PCR) Not detected (NOT DETECTE) C. pneumoniae DNA (PCR) Not detected (NOT DETECTE) Coronavirus Type OC43 Not detected (NOT DETECTE) Coronavirus Type HKU1 Not detected (NOT DETECTE) Coronavirus Type 229E Not detected (NOT DETECTE) Coronavirus Type NL63 Not detected (NOT DETECTE) Human Metapneumovir PCR Not detected (NOT DETECTE) M. pneumoniae (PCR) Not detected (NOT DETECTE) Parainfluenza PCR Not detected (NOT DETECTE) Parainfluenza 2 (PCR) Not detected (NOT DETECTE) Parainfluenza 3 (PCR) Not detected (NOT DETECTE) Parainfluenza 4 (PCR) Not detected (NOT DETECTE) RSV (RT-PCR) Not detected (NOT DETECTE) Entero/Rhino (PCR) Not detected (NOT DETECTE) SARS-CoV-2 (PCR) Not detected (NOT DETECTE) Bordetella pertussis (PCR) Not detected (NOT DETECTE) B parapertussis DNA PCR Not detected (NOT DETECTE) Influenza Type A (PCR) Not detected (NOT DETECTE) Influenza Type B (PCR) Not detected (NOT DETECTE) Discharge Plan Discharge Chief Complaint: Headache Clinical Impression: CSF otorrhea Headache Qualifiers: Headache type: unspecified Headache chronicity pattern: acute headache Intractability: not intractable Qualified Code(s): R51.9 - Headache, unspecified Acute maxillary sinusitis Qualifiers: Recurrence: non-recurrent Qualified Code(s): J01.00 - Acute maxillary sinusitis, unspecified Otitis media Qualifiers: Otitis media type: unspecified Chronicity: acute Qualified Code(s): H66.90 - Otitis media, unspecified, unspecified ear Patient Disposition: Home, Self-Care Time of Disposition Decision: 21:14 Condition: Good Mode of Transportation: Private Vehicle Prescriptions / Home Meds: New amoxicillin-pot clavulanate 875-125 mg tablet 1 tab PO Q12H 10 Days Qty: 20 0RF No Action duloxetine 60 mg capsule,delayed release(DR/EC) 120 mg PO QDAY ropinirole 1 mg tablet 1 mg PO BID buspirone 15 mg tablet 15 mg PO TID primidone 50 mg tablet 50 mg PO .as directed lamotrigine 100 mg tablet 100 mg PO Q12H lisinopril-hydrochlorothiazide [Zestoretic] 20-25 mg tablet 1 tab PO DAILY amlodipine 10 mg tablet 10 mg PO QDAY lovastatin 20 mg tablet 20 mg PO QDAY hydroxyzine pamoate [Vistaril] 50 mg capsule 50 mg PO Q8H azithromycin [Zithromax Z-Reilly] 250 mg tablet See Rx Instructions .ROUTE .COMPLEX Qty: 6 0RF Rx Instructions: For 250 mg dose pack: take 500 mg today (day 1), then 250 mg for 4 days (days 2-5) benzonatate 200 mg capsule 200 mg PO TID PRN (Reason: cough) Qty: 20 0RF albuterol sulfate 90 mcg/actuation HFA aerosol inhaler 1 inh inhalation Q6H PRN (Reason: shortness of breath or wheezing) Qty: 6.7 0RF Instructions: Sinusitis (ED), Acute Headache (ED) Stand Alone Forms: Portal Instructions Referrals: DENNIS ALMEIDA [Primary Care Provider] - 1 week Suzanna yNe MD [Physician] - As soon as possible Discharge Date/Time: 01/05/23 22:42
--- NOTE | 2023-01-05 19:57 | XR_ITS ---
The [address] [address] Patient Name: YULI ORANTES MRN: [id number] date: 1965 Sex: F Assigned Patient Location: ER Current Patient Location: ER Accession/Order Number: [id number] Exam Date: 01/05/2023 20:06 Report Date: 01/05/2023 20:40 At the request of: MANUEL MORENO Procedure: XR chest 1V EXAMINATION: XR chest 1V HISTORY: Pain COMPARISON: None. TECHNIQUE: Portable chest FINDINGS: The lung parenchyma is free of consolidation or infiltrate. No pneumothorax or pleural effusion. The cardiac, mediastinal and hilar contours are normal. The visualized osseous structures exhibit no gross abnormality. XR/XR chest 1V IMPRESSION: No acute cardiopulmonary abnormality. Electronically authenticated by: GINI COTA Date: 01/05/2023 20:40
[2023-01-05 20:17] LABS: Adenovirus NOT DETECTED (NOT DETECTE); Bordetella parapertussis NOT DETECTED (NOT DETECTE); Coronavirus 229E NOT DETECTED (NOT DETECTE); Coronavirus HKU1 NOT DETECTED (NOT DETECTE); Coronavirus NL63 NOT DETECTED (NOT DETECTE); Coronavirus OC43 NOT DETECTED (NOT DETECTE); Human Metapneumovirus NOT DETECTED (NOT DETECTE); Human Rhinovirus/Enterovirus NOT DETECTED (NOT DETECTE); Influenza A NOT DETECTED (NOT DETECTE); Influenza B NOT DETECTED (NOT DETECTE); Mycoplasma pneumoniae NOT DETECTED (NOT DETECTE); Parainfluenza Virus 1 NOT DETECTED (NOT DETECTE); Parainfluenza Virus 2 NOT DETECTED (NOT DETECTE); Parainfluenza Virus 3 NOT DETECTED (NOT DETECTE); Parainfluenza Virus 4 NOT DETECTED (NOT DETECTE); Respiratory Syncytial Virus NOT DETECTED (NOT DETECTE); SARS-CoV-2 NOT DETECTED (NOT DETECTE)
[2023-01-05] MEDS: HYDROCODONE/ACET 5-325 MG TABLET 1 TAB PO (20:17)
[2023-01-05 20:39] LABS: Basophils Percent Auto 0.3 % (0.2-2.0); Eosinophils Absolute Auto 0.3 10^3/uL (0.0-0.7); Eosinophils Percent Auto 2.1 % (0.9-7.0); Hematocrit 45.6 % (36.0-48.0); Hemoglobin 14.6 g/dL (12.0-16.0); Immature Granulocytes Abs Auto 0.03 10^3/uL (0.00-0.03); Immature Granulocytes Pct Auto 0.2 % (0.0-0.5); Lymphocytes Absolute Auto 2.4 10^3/uL (1.2-3.8); Lymphocytes Percent Auto 19.2 % (20.5-60.0); Mean Corpuscular Hemoglobin 28.7 pg (26.7-34.0); Mean Corpuscular Volume 89.8 fL (81.0-99.0); Mean Platelet Volume 9.3 fL (9.5-13.5); Monocytes Absolute Auto 0.9 10^3/uL (0.3-0.8); Monocytes Percent Auto 7.4 % (1.7-12.0); Neutrophils Absolute Auto 8.7 10^3/uL (1.4-6.5); Neutrophils Percent Auto 70.8 % (43.0-75.0); Platelet Count 304 10^3/uL (150-450); Red Blood Count 5.08 10^6/uL (4.20-5.40); Red Cell Distribution Width 13.5 % (11.0-15.0); White Blood Count 12.4 10^3/uL (4.0-11.0)
[2023-01-05 20:44] LABS: Erythrocyte Sedimentation Rate 82 mm/hr (<=30)
[2023-01-05 21:00] LABS: Lactate/Lactic Acid 1.2 mmol/L (0.4-2.0)
[2023-01-05 21:07] LABS: Alanine Aminotransferase 27 U/L (14-59); Albumin Globulin Ratio 0.8; Albumin Level 3.9 g/dL (3.4-5.0); Alkaline Phosphatase 83 U/L (46-116); Anion Gap 9.9; Aspartate Amino Transferase 20 U/L (15-37); BUN Creatinine Ratio 28.4; Bilirubin Total 0.3 mg/dL (0.2-1.0); Chloride 97 mmol/L (98-107); Estimated GFR (African America >60 (>=60); Estimated GFR (Non-African Ame >60 (>=60); Globulin 4.7 g/dL; Glucose 93 mg/dL (74-106); Potassium 3.9 mmol/L (3.5-5.1); Sodium 135 mmol/L (136-145); Total Protein 8.6 g/dL (6.4-8.2)
[2023-01-05 21:08] LABS: C Reactive Protein 2.9 mg/dL (<=1.0)
[2023-01-05 21:17] VITALS: PULSE 85; RESP 22; O2SAT 95
[2023-01-05 21:26] VITALS: BP 134/82
[2023-01-05] MEDS: ONDANSETRON 4 MG RAPDIS TABLET SL (21:35)
[2023-01-05] MEDS: KETOROLAC TROMETHAMINE 30 MG/ML VIAL 15 MG IVP (21:35)
[2023-01-05] MEDS: 0.9 % SODIUM CHLORIDE 1,000 ML 1000 ML IV (21:37)
[2023-01-05] MEDS: AMPICILLIN SODIUM/SULBACTAM NA 3 GM in 0.9 % SODIUM CHLORIDE 100 ML IV (21:38)
== END 2023-01-05 22:42 | disposition home or self-care (01) ==
PROVIDERS: Physician Assistant; Emergency Provider Emergency Medicine; PCP Family Medicine
DX: G96.01 Cranial cerebrospinal fluid leak, spontaneous (principal); J01.00 Acute maxillary sinusitis, unspecified; R51.9 Headache, unspecified; H66.90 Otitis media, unspecified, unspecified ear; F41.9 Anxiety disorder, unspecified; M19.90 Unspecified osteoarthritis, unspecified site; F31.9 Bipolar disorder, unspecified; H91.90 Unspecified hearing loss, unspecified ear; E78.00 Pure hypercholesterolemia, unspecified; I10 Essential (primary) hypertension; F42.9 Obsessive-compulsive disorder, unspecified; Z98.890 Other specified postprocedural states; Z98.891 History of uterine scar from previous surgery; Z79.899 Other long term (current) drug therapy; Z90.49 Acquired absence of other specified parts of digestive tract; Z90.710 Acquired absence of both cervix and uterus; Z20.822 Contact with and (suspected) exposure to COVID-19
CPT/HCPCS: 0202U; 36415; 70450; 71045; 80053; 83605; 85025; 85652; 86140; 87040; 87811; 96365; 96375; 99285

== ENCOUNTER 2023-05-27 08:33 | Outpatient (OUT) | payer MEDICARE, SELFPAY ==
--- OUTSIDE RECORDS SUMMARY | 2023-05-27 08:42 | XMS_ITS | CCD ---
Author Organization [facility] Care Team Providers Care Mail Processing Clerk Name Role Phone Carol Mckinney Unavailable ANNMARIE, DR OLAF Agudelo Admitting Unavailable KUNS, DR OLAF Agudelo Attending Unavailable FURLONG, DR HARLAN Esposito Primary Care Unavailable KUNS, DR OLAF Agudelo Consulting Unavailable ADARSH, DR WATTS Admitting Unavailable ADARSH, DR WATTS Attending Unavailable FURLONG, DR HARLAN Esposito Primary Care Unavailable KUNQuynh, DR OLAF Agudelo Admitting Unavailable KUNS, DR OLAF Agudelo Attending Unavailable FURLONG, DR HARLAN Esposito Primary Care Unavailable KUNS, DR OLAF Agudelo Consulting Unavailable FURLONG, DR HARLAN Esposito Admitting Unavailable FURLONG, DR HARLAN Esposito Attending Unavailable FURLONG, DR HARLAN Esposito Primary Care Unavailable FURLONG, DR HARLAN Esposito Consulting Unavailable WALKER, DR GINI Chacon Consulting Unavailable DO Harlan Almeida Primary Care Provider [phone] MD Xena Longo Attending Provider DANA Mckinney Attending Provider Harmony Khan Unavailable FERCHO HAM Attending Unavailable HARLAN ALMEIDA Primary Care Unavailab FERCHO Mantilla Attending Unavailable JENNIFERLOHARLAN CASAS Primary Care Unavailab le Furlong Harlan RAMOS Primary Care Provider CLAYTON HAWLEY Attending Unavailab le DARYLNGHARLAN Primary Care Unavailab le CLAYTON HAWLEY Admitting Unavailab le JENNIFERLONGHARLAN Primary Care Unavailab le HARLAN ALMEIDA Referring Unavailab FERCHO Mantilla Attending Unavailable JENNIFERNGHARLAN Primary Care Unavailab le JENNIFERLONG, HARLAN OVERTON Primary Care Unavailab FERCHO Mantilla Attending Unavailable JENNIFERLONG, HARALN OVERTON Primary Care Unavailab Carol Beard Admitting Unavailable Carol Mckinney Attending Unavailable Jenniferlong, Harlan Primary Care Unavailable Jenniferlong, Harlan Primary Care Unavailable Deepak Longo Admitting Unavailab Deepak Verduzco Attending Unavailab le Harlan Almeida DO Primary Care Provider [phone] BRANDON SOTELO Attending Unavailable JENNIFERMAXINENG, HARLAN Esposito Referring Unavailable JENNIFERLONG, HARLAN Esposito Primary Care Unavailable JENNIFERLONG, HARLAN G Attending Unavailable JENNIFERLONG, HARLAN G Referring Unavailable FURLONG, HARLAN Esposito Primary Care Unavailable MEÑO GOMEZ Attending Unavailable MEÑO GOMEZ Referring Unavailable MEÑO GOMEZ Attending Unavailable Medications Current Medications Medication Drug Class(es) Dates Sig (Normalized) Sig (Original) acetaminophen 325 mg oral tablet (1 source) Start: 02-22-2023 take 650 mg by mouth every six hours for pain 650 mg, oral, Every 6 hours scheduled, First dose on Wed02/22/23 at 1300 If ordered PRN for pain, nurse is permitted to administer this medication for higher pain scores based on patient preference? Yes acetaminophen 325 mg / HYDROcodone bitartrate 5 mg oral tablet (1 source) Opioid Agonist HYDROcodone-acet am inophen ([place]) 5-325 mg tablet Take by mouth. 0 Active [id number] 200 actuat albuterol 0.09 mg/actuat metered dose inhaler (1 source) beta2-Adrenergic Agonist Start: 10-08-2022 take 2 puff(s) by inhalation every four to six hours as needed Albuterol Sulfate HFA 108 (90 Base) MCG/ACT 2 puffs as needed Inhalation every 4-6 hours for 14 days Oct, Active amoxicillin 875 mg / clavulanate 125 mg oral tablet (1 source) Penicillin-class Antibacterial Start: 10-08-2022 take 1 tablet by mouth every twelve hours Amoxicillin-Pot Clavulanate 875-125 MG 1 tablet Orally every 12 hrs for 10 day(s) Oct, Active asenapine 10 mg sublingual tablet (1 source) Atypical Antipsychotic take 1 tablet by mouth every twelve hours Saphris 10 MG 1 tablet under the tongue and allow to dissolve Sublingual Twice a day for 30 day(s) Active atorvastatin 10 mg oral tablet (1 source) HMG-CoA Reductase Inhibitor Start: 02-22-2023 take 10 mg by mouth once daily 10 mg, oral, Nightly, First dose on Wed02/22/23 at 2100 benzonatate 100 mg oral capsule (1 source) Non-narcotic Antitussive Start: 10-08-2022 take 1 capsule by mouth three times daily as needed Tessalon Perles 100 MG 1 capsule as needed Orally Three times a day for 7 days Oct, Active betamethasone 0.001 mg/mg topical ointment (1 source) Corticosteroid Start: 05-18-2023 betamethasone valerate (VALISONE) 0.1 % ointment Indications: Other eczema Apply 1 Application topically in the morning and 1 Application before bedtime. 45 g 3 05/18/2023 Active busPIRone hydrochloride 10 mg oral tablet (12 sources) Start: 12-17-2022 take 1 tablet by mouth twice daily busPIRone (Buspar) 10 mg tablet Take 1 tablet (10 mg) by mouth 2 times a day. 0 12/17/2022 Active Start: 06-16-2020 End: 07-22-2020 take 15 mg by mouth three times daily Buspirone Active 15 MG PO Three times daily 42 July 22, 2020 8:07am take 1 tablet by elvira th every twelve hours busPIRone HCl 10 MG 1 tablet Orally Twice a day Active ceFAZolin 2000 mg injection (1 source) Cephalosporin Antibacterial Start: 02-23-2023 End: 02-26-2023 take 2 g intravenously every eight hours ceFAZolin in dextrose (iso-os) (Ancef) IVPB 2 g chlorhexidine gluconate 1.2 mg/ml mouthwash (1 source) Start: 02-17-2023 chlorhexidine (Peridex) 0.12 % solution Indications: Preoperative examination Swish and spit 15 mL night before surgery and morning of surgery 473 mL 0 02/17/2023 Active ciprofloxacin 3 mg/ml / dexamethasone 1 mg/ml otic suspension (1 source) Corticosteroid, Quinolone Antimicrobial Start: 01-07-2023 ciprofloxacin-dex amethasone (CiproDEX) otic suspension Indications: CSF leak from ear Administer 4 drops into the right ear 2 times a day. 7.5 mL 0 01/07/2023 Active docusate sodium 50 mg / sennosides, intermediate 8.6 mg oral tablet (2 sources) Start: 02-25-2023 End: 03-04-2023 take 1 tablet by mouth once daily sennosides-docusa te sodium (Shirlene-Colace) 8.6-50 mg tablet Indications: CSF leak Take 1 tablet by mouth once daily for 7 days. 7 tablet 0 02/25/2023 03/04/2023 Active Start: 02-22-2023 take 2 tablets by mo [facility] twice daily 2 tablet, oral, 2 times daily, First dos e on Wed02/22/23 at 1430 Bowel Regimen - for prevention of constipation Hold for loose stools DULoxetine 60 mg delayed release oral capsule (16 sources) Serotonin and Norepinephrine Reuptake Inhibitor Start: 02-22-2023 take 120 mg by mouth once daily 120 mg, oral, Daily RT, First dose on Wed02/22/23 at 1400 Do not crush or chew. Start: 02-03-2020 End: 07-22-2020 take 60 mg by mouth once daily Duloxetine Discontinued 60 MG PO Daily May 03, 2020 12:00am July 22, 2020 8:07am take 2 capsules by m outh in the morning DULoxetine (CYMBALTA) 60 mg capsule Take 2 capsules (120 mg total) by mouth in the morning. 0 Active take 1 capsule by ca ut every twelve hours DULoxetine HCl 60 MG 1 capsule Orally Twice a day Active ergocalciferol 1.25 mg oral capsule (6 sources) Provitamin D2 Compound Start: 07-22-2020 take 1250 ug by mouth every week Ergocalciferol (Vitamin D2) Active 1250 MCG PO Q7D@0900 6 July 21, 2020 11:00pm Start: 05-20-2020 End: 06-28-2020 take 1 capsule by mouth every week Ergocalciferol (Vitamin D2) (Vitamin D2) 1,250 mcg (50,000 unit) capsule Discontinued 1250 MCG PO every week June 19, 2020 11:00pm June 28, 2020 11:33am 1 ml heparin sodium, porcine 5000 unt/ml injection (1 source) Unfractionated Heparin, Anti-coagulant Start: 02-24-2023 inject 7500 [IU] by subcutaneous injection every eight hours 7,500 Units, subcutaneous, Every 8 hours scheduled, First dose on Wed02/24/23 at 0600 hydroCHLOROthiazide 25 mg / lisinopril 20 mg oral tablet (10 sources) Thiazide Diuretic, Angiotensin Converting Enzyme Inhibitor Start: 06-10-2020 take 1 tablet by mouth once daily Lisinopril-Malone chlorothiazide Active 1 TAB PO Daily June 09, 2020 11:00pm Start: 02-03-2020 End: 05-03-2020 take 1 tablet by mouth once daily Lisinopril-Hydrochlorothiazide Discontin ued 1 TAB PO Daily February 03, 2020 12:00am May 03, 2020 7:57pm hydrOXYzine pamoate 25 mg oral capsule (14 sources) Antihistamine Start: 02-22-2023 take 50 mg by mouth three times daily as needed 50 mg, oral, 3 times daily PRN, itching, Starting on Wed02/22/23 at 1256 Start: 02-03-2020 End: 04-01-2020 take 25 mg by mouth three times daily Hydroxyzine Pamoate Discontinued 25 MG PO Three times daily February 08, 2020 12:00am April 01, 2020 6:16am take 1 capsule by mo [facility] three times daily for anxiety hydrOXYzine (VISTARIL) 50 mg capsule hydroxyzine pamoate 50 mg capsule take 1 capsule by mouth three times a day if needed for anxiety 0 Active take 1 capsule by mo ut every eight hours Vistaril 25 MG 1 capsule as needed Orally every 8 hrs Active lamoTRIgine 100 mg oral tablet (18 sources) Mood Stabilizer, Anti-epileptic Agent Start: 12-22-2022 take 1 tablet by mouth twice daily lamoTRIgine (LaMICtal) 100 mg tablet Take 1 tablet (100 mg) by mouth 2 times a day. 0 12/22/2022 Active Start: 07-22-2020 take 50 mg by mouth twice thanh y Lamotrigine Active 50 MG PO Twice daily 120 July 21, 2020 11:00pm Start: 06-20-2020 End: 07-22-2020 take 1 tablet by mouth twice daily Lamotrigine (Lamictal) 25 mg Tablet Discontinued 25 MG PO Twice daily June 19, 2020 11:00pm July 22, 2020 8:08am Start: 04-05-2020 End: 05-20-2020 take 1 tablet by mouth once daily Lamotrigine (Lamictal) 200 mg tablet Discontinued 200 MG PO Daily April 05, 2020 6:20am May 20, 2020 9:51am Start: 02-03-2020 End: 04-05-2020 take 200 mg by mouth twice daily Lamotrigine Discontinued 200 MG PO Twice daily 60 February 08, 2020 12:00am April 05, 2020 6:20am levETIRAcetam 500 mg oral tablet (3 sources) Start: 02-22-2023 End: 03-04-2023 take 1 tablet by mouth twice daily levETIRAcetam (Keppra) 500 mg tablet Indications: CSF leak Take 1 tablet (500 mg) by mouth 2 times a day for 7 days. 14 tablet 0 02/25/2023 Active lisinopril 20 mg oral tablet (3 sources) Angiotensin Converting Enzyme Inhibitor take 1 tablet by mouth every twenty-fo ur hours Lisinopril 20 MG 1 tablet Orally Once a day Active lisinopril 20 mg, hydroCHLOROthiazide 25 mg for Zestoretic/Prinizide (1 source) Start: 02-22-2023 take 1 dose by mouth once daily oral, Daily, First dose on Wed02/22/23 at 1430 Give both components for Zestoretic/Prinizide product methylPREDNISolone 4 mg oral tablet (1 source) Corticosteroid Start: 10-08-2022 methylPREDNISolone 4 MG as directed Orally for daily dose take half with breakfast, half with dinner for 6 days Oct, Active Naloxone (1 source) Opioid Antagonist Start: 02-22-2023 0.2 mg, intravenous, Every 5 min PRN, respiratory depression, Starting on Wed02/22/23 at 1256 If respiratory rate is less than 8 breaths/minute or patient is difficult to arouse stop any narcotics and contact physician. Administer slow IV push. Repeat as ordered until patient's respiratory rate is greater than 12 breaths/minute. Ondansetron (1 source) Serotonin-3 Receptor Antagonist Start: 02-22-2023 take 1 tablet by mouth every eight hours as needed ondansetron (Zofran) tablet 4 mg oxyCODONE hydrochloride 5 mg oral tablet (2 sources) Opioid Agonist Start: 02-22-2023 take 1 tablet by mouth every four hours as needed 10 mg, oral, Every 4 hours PRN, pain severe (7-10), first line, Starting on Wed02/22/23 at 1256 May be given with acetaminophen tablet. If ordered PRN for pain, nurse is permitted to administer this medication for higher pain scores based on patient preference? Yes Start: 02-22-2023 take 1 tablet by elvira th every four hours as needed 5 mg, oral, Every 4 hours PRN, pain moderate (4-6), first line, Starting on Wed02/22/23 at 1256 May be given with acetaminophen tablet. If ordered PRN for pain, nurse is permitted to administer this medication for higher pain scores based on patient preference? Yes Pneumatic Walking Boot (1 source) Start: 07-18-2021 Pneumatic Walk ing Boot July, Active predniSONE 20 mg oral tablet (3 sources) Start: 04-23-2023 take 20 mg by mouth twice daily Prednisone Active 20 MG PO Twice daily 10 April 23, 2023 12:00am Start: 09-12-2022 take 1 tablet by elvira th every twelve hours predniSONE 20 MG 1 tablet Orally bid for 5 days Sep, Not-Taking primidone 50 mg oral tablet (11 sources) Anti-epileptic Agent Start: 02-22-2023 take 150 mg by mouth once daily 150 mg, oral, Nightly, First dose on Wed02/22/23 at 2100 Start: 02-22-2023 50 mg (50 mg/d ay), oral, Every morning, First dose on Wed02/22/23 at 1430 Start: 02-03-2020 End: 05-03-2020 take 1 tablet by mouth at bedtime Primidone (Mysoline) 50 mg Tablet Discontinued 25 MG PO Bedtime February 03, 2020 12:00am May 03, 2020 7:59pm take 0.5-1 tablets b y mouth once daily in the morning, then take 2-0.5 tablets by mouth once daily in the evening primidone (MYSOLINE) 50 mg tablet take 1/2 to 1 tablet by mouth every morning and 2 & 1/2 to 3 tablets every evening 0 Active rOPINIRole 1 mg oral tablet (14 sources) Nonergot Dopamine Agonist Start: 11-25-2021 take 1 tablet by mouth every twelve hours 1 mg, oral, Every 12 hours, First dose on 02/22/23 at 1400 Start: 06-16-2020 End: 07-22-2020 take 1 mg by mouth twice daily Ropinirole Active 1 MG PO Twice daily July 22, 2020 8:07am Start: 05-03-2020 End: 06-28-2020 take 0.5 mg by mouth twice daily Ropinirole Discontinued 0.5 MG PO Twice daily May 03, 2020 12:00am June 28, 2020 2:09pm traMADol hydrochloride 50 mg oral tablet (1 source) Opioid Agonist Start: 02-25-2023 End: 02-28-2023 take 1 tablet by mouth every six hours for pain traMADol (Ultram) 50 mg tablet Indications: CSF leak , Post-op pain Take 1 tablet (50 mg) by mouth every 6 hours if needed for severe pain (7 - 10) for up to 3 days. 12 tablet 0 02/25/2023 02/28/2023 Active 24 hr divalproex sodium 500 mg extended release oral tablet (2 sources) Mood Stabilizer, Anti-epileptic Agent Start: 07-22-2020 take 500 mg by mouth every twelve hours Divalproex Active 500 MG PO Every 12 hours 60 July 21, 2020 11:00pm Completed/Discontinued Medications Medication Drug Class(es) Dates Sig (Normalized) Sig (Original) amLODIPine 10 mg oral tablet (10 sources) Dihydropyridine Calcium Channel Grey Start: 02-03-2020 End: 05-18-2023 take 1 tablet by mouth once daily amLODIPine (NORVASC) 10 mg tablet take 1 tablet by mouth once daily 90 tablet 1 09/06/2022 05/18/2023 Discontinued (Therapy completed) Asenapine Maleate (Saphris) 10 mg Tablet, Sublingual (2 sources) Start: 05-20-2020 End: 07-02-2020 take 1 tablet under the tongue twice daily Asenapine Maleate (Saphris) 10 mg Tablet, Sublingual Discontinued 10 MG SUBLINGUAL Twice daily 60 May 19, 2020 11:00pm July 02, 2020 12:04pm Start: 05-20-2020 End: 07-02-2020 take 1 tablet under the tongue twice daily Asenapine Maleate (Saphris) 10 mg Tablet, Sublingual Discontinued 10 MG SUBLINGUAL Twice daily 60 May 20, 2020 12:00am July 02, 2020 1:04pm brexpiprazole 2 mg oral tablet (2 sources) Atypical Antipsychotic Start: 02-03-2020 End: 02-08-2020 take 1 tablet by mouth once daily Brexpiprazole (Rexulti) 2 mg Tablet Discontinued 2 MG PO Daily February 03, 2020 12:00am February 08, 2020 9:43am 24 hr buPROPion hydrochloride 300 mg extended release oral tablet (11 sources) Aminoketone Start: 05-03-2020 End: 05-20-2020 take 300 mg by mouth once daily Bupropion Hcl Discontinued 300 MG PO Daily May 03, 2020 12:00am May 20, 2020 9:51am Start: 04-01-2020 End: 05-03-2020 Bupropion Hcl (Wellbutrin Xl ) 150 mg tablet extended release 24 hr Discontinued 300 MG PO Daily April 01, 2020 6:15am May 03, 2020 7:51pm Start: 02-08-2020 End: 04-01-2020 take 450 mg by mouth once daily Bupropion Hcl Disconti nued 450 MG PO Daily February 08, 2020 12:00am April 01, 2020 6:15am Start: 02-03-2020 End: 02-08-2020 take 1 tablet by mouth once daily Bupropion Hcl (Wellbutrin Xl) 300 mg Tablet Extended Release 24 Hr Discontinued 300 MG PO Daily February 03, 2020 12:00am February 08, 2020 9:43am cephalexin 500 mg oral capsule (4 sources) Cephalosporin Antibacterial Start: 05-08-2020 End: 06-12-2020 take 500 mg by mouth every twelve hours Cephalexin Discontinued 500 MG PO Every 12 hours May 20, 2020 7:54am June 12, 2020 11:07am 1 ml HYDROmorphone hydrochloride 1 mg/ml cartridge (2 sources) Opioid Agonist Start: 02-22-2023 End: 02-24-2023 take 0.2 mg by mouth every three hours as needed for pain 0.2 mg, intravenous, Every 3 hours PRN, pain breakthrough, breakthrough pain - 2nd line, use oral products first if ordered, Starting on 02/22/23 at 1256 If oral and IV narcotics ordered, use oral first and only use IV if oral is ineffective or cannot take oral. Do NOT give oral and IV within one hour of each other unless specifically ordered. ibuprofen 600 mg oral tablet (2 sources) Nonsteroidal Anti-inflammatory Drug End: 02-22-2023 take 1 tablet by mouth every six hours as needed ibuprofen 600 mg tablet Take 1 tablet (600 mg) by mouth every 6 hours if needed for mild pain (1 - 3). 0 02/22/2023 Discontinued (Med List Cleanup) labetalol hydrochloride 5 mg/ml injectable solution (1 source) beta-Adrenergic Grey Start: 02-22-2023 End: 02-24-2023 labetaloL (Normodyne,Trandat e) injection 10 mg lithium carbonate 300 mg extended release oral tablet (4 sources) Start: 02-08-2020 End: 04-01-2020 take 600 mg by mouth at bedtime [place] Carbonate Discontinued 600 MG PO Bedtime 60 February 08, 2020 12:00am April 01, 2020 6:16am Start: 02-03-2020 End: 02-08-2020 take 300 mg by mouth twice daily [place] Carbonate Discontinued 300 MG PO Twice daily February 03, 2020 12:00am February 08, 2020 9:43am LORazepam 0.5 mg oral tablet (2 sources) Benzodiazepine Start: 06-10-2020 End: 06-28-2020 take 1 tablet by mouth twice daily Lorazepam (Ativan) 0.5 mg tablet Discontinued 0.5 MG PO Twice daily 6 June 09, 2020 11:00pm June 28, 2020 11:34am lovastatin 40 mg oral tablet (11 sources) HMG-CoA Reductase Inhibitor Start: 07-31-2022 End: 05-18-2023 take 1 tablet by mouth in the morning lovastatin (MEVACOR) 40 mg tablet Indications: Mixed hyperlipidemia Take 1 tablet (40 mg total) by mouth in the morning. 90 tablet 1 07/31/2022 05/18/2023 Discontinued (Therapy completed) Start: 06-10-2020 take 20 mg by mouth once daily Lovastatin Active 20 MG PO Daily June 09, 2020 11:00pm Start: 02-03-2020 End: 05-03-2020 take 20 mg by mouth once daily Lovastatin Discontinued 20 MG PO Daily February 03, 2020 12:00am May 03, 2020 8:00pm 50 ml magnesium sulfate 40 mg/ml injection (1 source) Start: 02-23-2023 End: 02-23-2023 magnesium sulfate IV 2 g 24 hr metFORMIN hydrochloride 500 mg extended release oral tablet (4 sources) Biguanide Start: 11-22-2022 End: 05-18-2023 take 1 tablet by mouth once daily in the morning metFORMIN XR (GLUCOPHAGE XR) 500 mg 24 hr tablet take 1 tablet by mouth every morning with breakfast 90 tablet 3 11/22/2022 05/18/2023 Discontinued (Therapy completed) take 1 tablet by elvira th once daily at mealtime metFORMIN, OSM, (Fortamet) 500 mg 24 hr tablet Take 1 tablet (500 mg) by mouth once daily in the evening. Take with meals. Do not crush, chew, or split. 0 Active 24 hr paliperidone 3 mg extended release oral tablet (2 sources) Atypical Antipsychotic Start: 07-02-2020 End: 07-22-2020 take 3 mg by mouth once daily at bedtime Paliperidone Discontinued 3 MG PO Daily at bedtime July 01, 2020 11:00pm July 22, 2020 8:08am 1000 ml sodium chloride 9 mg/ml injection (3 sources) Start: 02-22-2023 End: 02-23-2023 sodium chloride 0.9 % bolus 1,000 mL traZODone hydrochloride 100 mg oral tablet (19 sources) Serotonin Reuptake Inhibitor Start: 03-17-2023 End: 05-18-2023 take 1 tablet by mouth at bedtime traZODone (DESYREL) 100 mg tablet take 1 tablet by mouth at bedtime if needed 0 03/17/2023 05/18/2023 Discontinued (Therapy completed) Start: 02-22-2023 take 100 mg by mouth once thanh y 100 mg, oral, Nightly, First dose on Wed02/22/23 at 2100 Start: 05-20-2020 End: 07-22-2020 take 100 mg by mouth at bedtime Trazodone Active 100 M G PO Bedtime 30 July 22, 2020 8:07am Start: 02-03-2020 End: 05-20-2020 take 75 mg by mouth at bedtime Trazodone Discontinued 75 MG PO Bedtime May 03, 2020 3:40pm May 20, 2020 9:51am End: 05-18-2023 traZODone (DESYREL) 150 mg t ablet Take 75 mg by mouth nightly. 0 05/18/2023 Discontinued (Therapy completed) Problems Active Problems Problem Classification Problem Date Documented Date Episodic/Chronic Allergic reactions (2 sources) Eczema; Translations: [Other specified dermatitis] Onset: 05-18-2023 05-18-2023 Episodic Anxiety disorders (4 sources) Anxiety; Translations: [Anxiety disorder, unspecified] Onset: 02-22-2023 02-22-2023 Chronic Diabetes mellitus without complication (8 sources) Type 2 diabetes mellitus without complications; Translations: [Type 2 diabetes mellitus] Onset: 11-24-2021 Chronic Disorders of lipid metabolism (5 sources) Hyperlipidemia, unspecified; Translations: [Hyperlipidemia] Onset: 11-25-2021 02-22-2023 Chronic Esophageal disorders (1 source) Gastroesophageal reflux disease; Translations: [Gastro-esophageal reflux disease without esophagitis] Onset: 12-03-2021 12-03-2021 Chronic Essential hypertension (7 sources) Hypertensive disorder; Translations: [Essential (primary) hypertension] Onset: 12-03-2021 05-06-2020 Chronic Gout and other crystal arthropathies (4 sources) Gout, unspecified; Translations: [Gout] Onset: 12-03-2021 Chronic Headache; including migraine (2 sources) Headache; Translations: [Headache] 02-04-2020 Episodic Joint disorders and dislocations; trauma-related (1 source) Derangement of knee; Translations: [Unspecified internal derangement of unspecified knee] Onset: 08-28-2020 12-03-2021 Chronic Malaise and fatigue (4 sources) Chronic fatigue, unspecified; Translations: [CHRONIC FATIGUE UNSPECIFIED] Onset: 12-12-2021 Chronic Mood disorders (19 sources) Severe depressed bipolar I disorder without psychotic features; Translations: [Bipolar disorder, current episode depressed, severe, without psychotic features] Onset: 12-03-2021 06-28-2020 Chronic Other connective tissue disease (1 source) Pain in left foot Episodic Other ear and sense organ disorders (1 source) Hearing loss of right ear; Translations: [Other specified hearing loss, right ear] Onset: 07-20-2022 07-31-2022 Chronic Other lower respiratory disease (1 source) Unspecified acute lower respiratory infection Episodic Other nervous system disorders (5 sources) Cerebrospinal fluid leak; Translations: [CSF leak] Onset: 01-19-2023 01-18-2023 Episodic Other nervous system disorders (1 source) Postoperative pain ; Translations: [Other acute postprocedural pain] 02-25-2023 Episodic Other nervous system disorders (2 sources) Other acute postprocedural pain; Translations: [Other acute postprocedural pain] Onset: 02-22-2023 Episodic Other nutritional; endocrine; and metabolic disorders (3 sources) Obesity; Translations: [Obesity, unspecified] Onset: 02-22-2023 02-22-2023 Chronic Other nutritional; endocrine; and metabolic disorders (1 source) Morbid obesity; Translations: [Morbid (severe) obesity due to excess calories] Onset: 08-15-2018 12-03-2021 Chronic Other nutritional; endocrine; and metabolic disorders (1 source) Morbid (severe) obesity due to excess calories; Translations: [Morbid (severe) obesity due to excess calories] Onset: 12-03-2021 Chronic Other screening for suspected conditions (not mental disorders or infectious disease) (5 sources) Encounter for screening mammogram for malignant neoplasm of breast; Translations: [Cerebrospinal fluid examination abnormal] Onset: 12-12-2021 Episodic Residual codes; unclassified (3 sources) Obstructive sleep apnea syndrome; Translations: [Obstructive sleep apnea (adult) (pediatric)] Onset: 02-22-2023 02-22-2023 Chronic Residual codes; unclassified (1 source) Sleep apnea; Translations: [Sleep apnea, unspecified] Onset: 2020 12-03-2021 Chronic Residual codes; unclassified (1 source) Obstructive sleep apnea (adult) (pediatric); Translations: [Obstructive sleep apnea (adult) (pediatric)] Onset: 12-03-2021 Chronic Residual codes; unclassified (1 source) Family history of malignant neoplasm of trachea, bronchus and lung; Translations: [FAM HX MALIG NEOPLSM TRACH BRON LNG] Onset: 12-16-2021 Episodic Residual codes; unclassified (2 sources) History of sleeve gastrectomy; Translations: [Acquired absence of stomach [part of]] Onset: 04-19-2023 04-23-2023 Episodic Unclassified (2 sources) Ear Drainage; Translations: [Ear Drainage] Onset: 12-24-2022 Unclassified (1 source) Cerebrospinal fluid leak, unspecified; Translations: [Cerebrospinal fluid leak, unspecified] Onset: 01-20-2023 Unclassified (2 sources) Post-op Visit; Translations: [Post-op Visit] Onset: 03-16-2023 Unclassified (1 source) Pain in left foot; Translations: [Pain in left foot] Onset: 09-12-2022 Unclassified (1 source) Rash Onset: 05-18-2023 Unclassified (1 source) Pre-op Exam Onset: 03-24-2023 Past or Other Problems Problem Classification Problem Date Documented Date Episodic/Chronic Fracture of lower limb (2 sources) Other fracture of right lower leg, initial encounter for closed fracture; Translations: [Fracture of calcaneus] Onset: 07-18-2021 Resolved: 07-18-2021 Episodic Malaise and fatigue (1 source) Fatigue; Translations: [Other fatigue] Onset: 12-03-2021 12-03-2021 Episodic Mood disorders (1 source) Mood disorders Onset: 05-18-2023 05-18-2023 Other connective tissue disease (1 source) Calcaneal spur; Translations: [Calcaneal spur, unspecified foot] Onset: 04-24-2022 04-24-2022 Episodic Other connective tissue disease (1 source) Synovial cyst of knee; Translations: [Synovial cyst of popliteal space [Parekh], unspecified knee] Onset: 11-26-2016 04-24-2022 Episodic Other ear and sense organ disorders (2 sources) Cerebrospinal fluid otorrhea; Translations: [CSF leak from ear] Onset: 11-04-2022 03-16-2023 Episodic Other nervous system disorders (1 source) Tremor; Translations: [Tremor, unspecified] Onset: 12-03-2021 12-03-2021 Episodic Other nervous system disorders (1 source) Trigeminal neuralgia; Translations: [Trigeminal neuralgia] Onset: 09-21-2017 12-03-2021 Episodic Other non-traumatic joint disorders (1 source) Pain in right ankle and joints of right foot Onset: 07-18-2021 Resolved: 07-18-2021 Episodic Other non-traumatic joint disorders (1 source) Shoulder pain; Translations: [Pain in unspecified shoulder] Onset: 04-24-2022 04-24-2022 Episodic Otitis media and related conditions (1 source) Dysfunction of right eustachian tube; Translations: [Unspecified Eustachian tube disorder, right ear] Onset: 07-20-2022 07-31-2022 Episodic Suicide and intentional self-inflicted injury (5 sources) Suicidal thoughts; Translations: [Suicidal ideations] Onset: 01-11-2020 07-17-2020 Episodic Unclassified (4 sources) Onset: 01-07-2023 Resolved: 05-18-2023 01-07-2023 Unclassified (1 source) Cerebrospinal fluid leak, unspecified; Translations: [Cerebrospinal fluid leak, unspecified] Onset: 02-22-2023 Results Test Name Value Interpretation Reference Range Facil ity Magnesiumon 02-25-2023 Magnesium [Mass/Vol] 1.55 mg/dL Low 1.60-2.40 [facility] Comment on above: Performed By: #### 3 4529-8 #### REGGIE Baugh ([id number]) [facility] ([facility]) [address] [place] [address] 00721 Magnesium [Mass/Vol] 1.55 mg/dL Low 1.60 - 2.40 mg/dL [facility] No Panel Informationon 02-25 Interpretation and review of laboratory results Abnormal [facility] Renal function 2000 panelon 02-25-2023 Albumin BCP dye [Mass/Vol] 3.8 g/dL Normal 3.4-5.0 [facility] Comment on above: Performed By: #### 3 4529-8 #### REGGIE Baugh ([id number]) [facility] ([facility]) [id number] [place] [address] 19122 Anion gap [Moles/Vol] 13 mmol/L Normal 10-20 [facility] Comment on above: Performed By: #### 3 4529-8 #### REGGIE QUEZADA L ([id number]) [facility] ([facility]) [address] [place] [address] Calcium [Mass/Vol] 9.2 mg/dL Normal 8.6-10.6 [facility] Comment on above: Performed By: #### 3 4529-8 #### REGGIE QUEZADA L ([id number]) [facility] ([facility]) [address] [place] [address] Chloride [Moles/Vol] 100 mmol/L Normal 98-107 [facility] Comment on above: Performed By: #### 3 4529-8 #### REGGIE QUEZADA L ([id number]) [facility] ([facility]) [address] [place] [address] CO2 [Moles/Vol] 29 mmol/L Normal 21-32 [facility] Comment on above: Performed By: #### 3 4529-8 #### REGGIE QUEZADA L ([id number]) [facility] ([facility]) [address] [place] [address] Creatinine [Mass/Vol] 0.61 mg/dL Normal 0.50-1.05 [facility] Comment on above: Performed By: #### 3 4529-8 #### REGGIE QUEZADA L ([id number]) [facility] ([facility]) [id number] [place] [address] 99949 GFR/1.73 sq M.predicted MDRD (S/P/Bld) [Vol rate/Area] mL/min/{1.73_m2} Normal >60 [facility] Comment on above: Result Comment: Calc ulations of estimated GFR are performed using the 2020 CKD-EPI Study Refit equation without the race variable for the IDMS-Traceable creatinine methods. https://jasn.asnjournals.org/content//ASN.69693059 88 Performed By: #### 3 4529-8 #### REGGIE Baugh ([id number]) [facility] ([facility]) [id number] [place] [address] 93028 Glucose [Mass/Vol] 121 mg/dL High 74-99 [facility] Comment on above: Performed By: #### 3 4529-8 #### REGGIE Baugh ([id number]) [facility] ([facility]) [address] [place] [address] 59773 Phosphate [Mass/Vol] 2.9 mg/dL Normal 2.5-4.9 [facility] Comment on above: Result Comment: The performance characteristics of phosphorus testing in heparinized plasma have been validated by the individual laboratory site where testing is performed. Testing on heparinized plasma is not approved by the FDA; however, such approval is not necessary. Performed By: #### 3 4529-8 #### REGGIE Baugh ([id number]) [facility] ([facility]) [address] [place] [address] 86090 Potassium [Moles/Vol] 4.4 mmol/L Normal 3.5-5.3 [facility] Comment on above: Performed By: #### 3 4529-8 #### REGGIE Baugh ([id number]) [facility] ([facility]) [address] [place] [address] 12539 Sodium [Moles/Vol] 138 mmol/L Normal 136-145 [facility] Comment on above: Performed By: #### 3 4529-8 #### REGGIE Baugh ([id number]) [facility] ([facility]) [address] [place] [address] 08141 Urea nitrogen [Mass/Vol] 11 mg/dL Normal 6-23 [facility] Comment on above: Performed By: #### 3 4529-8 #### REGGIE Baugh ([id number]) [facility] ([facility]) [address] [place] [address] 01484 Albumin BCP dye [Mass/Vol] 3.8 g/dL 3.4 - 5.0 g/dL [facility] Anion gap [Moles/Vol] 13 mmol/L 10 - 20 mmol/L [facility] Calcium [Mass/Vol] 9.2 mg/dL 8.6 - 10. 6 mg/dL [facility] Chloride [Moles/Vol] 100 mmol/L 98 - 107 mmol/L [facility] CO2 [Moles/Vol] 29 mmol/L 21 - 32 mmol/L [facility] Creatinine [Mass/Vol] 0.61 mg/dL 0.50 - 1.05 mg/dL [facility] GFR/1.73 sq M.predicted MDRD (S/P/Bld) [Vol rate/Area] - PINF [facility] Comment on above: Calculations of kortney mated GFR are performed using the 2020 CKD-EPI Study Refit equation without the race variable for the IDMS-Traceable creatinine methods. https://jasn.asnjournals.org/content/early/ASN.12157050 88 Glucose [Mass/Vol] 121 mg/dL High 74 - 99 mg/dL [facility] Phosphate [Mass/Vol] 2.9 mg/dL 2.5 - 4.9 mg/dL [facility] Comment on above: The performance hina acteristics of phosphorus testing in heparinized plasma have been validated by the individual laboratory site where testing is performed. Testing on heparinized plasma is not approved by the FDA; however, such approval is not necessary. Potassium [Moles/Vol] 4.4 mmol/L 3.5 - 5.3 mmol/L [facility] Sodium [Moles/Vol] 138 mmol/L 136 - 145 mmol/L [facility] Urea nitrogen [Mass/Vol] 11 mg/dL 6 - 23 mg/dL [facility] Glucose Test strip manual (B ld) [Mass/Vol]on 02-24-2023 Glucose [Mass/Vol] 121 mg/dL High 74-99 [facility] Comment on above: Performed By: #### 3 4529-8 #### REGGIE Baugh ([id number]) [facility] ([facility]) [address] [place] [address] Glucose [Mass/Vol] 121 mg/dL High 74 - 99 mg/dL [facility] Interpretation and review of laboratory results Abnormal [facility] Glucose [Mass/Vol] 107 mg/dL High 74-99 [facility] Comment on above: Performed By: #### 3 4529-8 #### REGGIE Baugh ([id number]) [facility] ([facility]) [address] [place] [address] 71439 Glucose [Mass/Vol] 107 mg/dL High 74 - 99 mg/dL [facility] Interpretation and review of laboratory results Abnormal [facility] Glucose [Mass/Vol] 100 mg/dL High 74-99 [facility] Comment on above: Performed By: #### 3 4529-8 #### REGGIE Baugh ([id number]) [facility] ([facility]) [address] [place] [address] 25612 Glucose [Mass/Vol] 100 mg/dL High 74 - 99 mg/dL [facility] Interpretation and review of laboratory results Abnormal [facility] CBC W Auto Differential pane l (Bld)on 02-23-2023 Basophils (Bld) [#/Vol] 0.02 x10*3/uL Normal 0.00-0.10 [facility] Comment on above: Performed By: #### 3 4529-8 #### REGGIE Baugh ([id number]) [facility] ([facility]) [address] [place] [address] 70485 Basophils/100 WBC (Bld) 0.2 % Normal 0.0-2.0 [facility] Comment on above: Performed By: #### 3 4529-8 #### REGGIE Baugh ([id number]) [facility] ([facility]) [address] [place] [address] 44830 Eosinophils (Bld) [#/Vol] 0.03 x10*3/uL Normal 0.00-0.70 [facility] Comment on above: Performed By: #### 3 4529-8 #### REGGIE Baugh ([id number]) [facility] ([facility]) [address] [place] [address] Eosinophils/100 WBC (Bld) 0.3 % Normal 0.0-6.0 [facility] Comment on above: Performed By: #### 3 4529-8 #### REGGIE Baugh ([id number]) [facility] ([facility]) [address] [place] [address] 52951 Erythrocyte distribution width (RBC) [Ratio] 13.2 % Normal 11.5-14.5 [facility] Comment on above: Performed By: #### 3 4529-8 #### REGGIE Baugh ([id number]) [facility] ([facility]) [address] [place] [address] 89670 Hematocrit (Bld) [Volume fraction] 37.0 % Normal 36.0-46.0 [facility] Comment on above: Performed By: #### 3 4529-8 #### REGGIE Baugh ([id number]) [facility] ([facility]) [address] [place] [address] 79155 Hemoglobin (Bld) [Mass/Vol] 12.0 g/dL Normal 12.0-16.0 [facility] Comment on above: Performed By: #### 3 4529-8 #### REGGIE Baugh ([id number]) [facility] ([facility]) [address] [place] [address] 88695 Immature granulocytes (Bld) [#/Vol] 0.02 x10*3/uL Normal 0.00-0.70 [facility] Comment on above: Performed By: #### 3 4529-8 #### REGGIE Baugh ([id number]) [facility] ([facility]) [address] [place] [address] 91481 Immature granulocytes/100 WBC (Bld) 0.2 % Normal 0.0-0.9 [facility] Comment on above: Result Comment: [place] ture Granulocyte Count (IG) includes promyelocytes, myelocytes and metamyelocytes but does not include bands. Percent differential counts (%) should be interpreted in the context of the absolute cell counts (cells/UL). Performed By: #### 3 4529-8 #### REGGIE Baugh ([id number]) [facility] ([facility]) [id number] [place] [address] 50479 Lymphocytes (Bld) [#/Vol] 1.95 x10*3/uL Normal 1.20-4.80 [facility] Comment on above: Performed By: #### 3 4529-8 #### REGGIE Baugh ([id number]) [facility] ([facility]) [address] [place] [address] 84021 Lymphocytes/100 WBC (Bld) 18.2 % Normal 13.0-44.0 [facility] Comment on above: Performed By: #### 3 4529-8 #### REGGIE Baugh ([id number]) [facility] ([facility]) [address] [place] [address] 74582 MCH (RBC) [Entitic mass] 28.7 pg Normal 26.0-34.0 [facility] Comment on above: Performed By: #### 3 4529-8 #### REGGIE Baugh ([id number]) [facility] ([facility]) [address] [place] [address] 24975 MCHC (RBC) [Mass/Vol] 32.4 g/dL Normal 32.0-36.0 [facility] Comment on above: Performed By: #### 3 4529-8 #### REGGIE Baugh ([id number]) [facility] ([facility]) [address] [place] [address] 92091 MCV (RBC) [Entitic vol] 89 fL Normal 80-100 [facility] Comment on above: Performed By: #### 3 4529-8 #### REGGIE Baugh ([id number]) [facility] ([facility]) [address] [place] [address] 69774 Monocytes (Bld) [#/Vol] 0.66 x10*3/uL Normal 0.10-1.00 [facility] Comment on above: Performed By: #### 3 4529-8 #### REGGIE Baugh ([id number]) [facility] ([facility]) [address] [place] [address] 84232 Monocytes/100 WBC (Bld) 6.2 % Normal 2.0-10.0 [facility] Comment on above: Performed By: #### 3 4529-8 #### REGGIE Baugh ([id number]) [facility] ([facility]) [address] [place] [address] 06005 Neutrophils (Bld) [#/Vol] 8.01 x10*3/uL High 1.20-7.70 [facility] Comment on above: Result Comment: Perc ent differential counts (%) should be interpreted in the context of the absolute cell counts (cells/uL). Performed By: #### 3 4529-8 #### REGGIE Baugh ([id number]) [facility] ([facility]) [address] [place] [address] 96135 Neutrophils/100 WBC (Bld) 74.9 % Normal 40.0-80.0 [facility] Comment on above: Performed By: #### 3 4529-8 #### REGGIE Baugh ([id number]) [facility] ([facility]) [address] [place] [address] 52374 Nucleated RBC/100 WBC (Bld) [Ratio] 0.0 /100 WBCs Normal 0.0-0.0 [facility] Comment on above: Performed By: #### 3 4529-8 #### REGGIE Baugh ([id number]) [facility] ([facility]) [address] [place] [address] 07581 Platelets (Bld) [#/Vol] 250 x10*3/uL Normal 150-450 [facility] Comment on above: Performed By: #### 3 4529-8 #### REGGIE Baugh ([id number]) [facility] ([facility]) [address] [place] [address] 86571 RBC (Bld) [#/Vol] 4.18 x10*6/uL Normal 4.00-5.20 [facility] Comment on above: Performed By: #### 3 4529-8 #### REGGIE Baugh ([id number]) [facility] ([facility]) [address] [place] [address] WBC (Bld) [#/Vol] 10.7 x10*3/uL Normal 4.4-11.3 [facility] Comment on above: Performed By: #### 3 4529-8 #### REGGIE Baugh ([id number]) [facility] ([facility]) [address] [place] [address] Basophils (Bld) [#/Vol] 0.02 10*3/uL [facility] Basophils/100 WBC (Bld) 0.2 % 0.0 - 2.0 % [facility] Eosinophils (Bld) [#/Vol] 0.03 10*3/uL [facility] Eosinophils/100 WBC (Bld) 0.3 % 0.0 - 6.0 % [facility] Erythrocyte distribution width (RBC) [Ratio] 13.2 % 11.5 - 14.5 % [facility] Hematocrit (Bld) [Volume fraction] 37.0 % 36.0 - 46.0 % [facility] Hemoglobin (Bld) [Mass/Vol] 12.0 g/dL 12.0 - 16.0 g/dL [facility] Immature granulocytes (Bld) [#/Vol] 0.02 10*3/uL [facility] Immature granulocytes/100 WBC (Bld) 0.2 % 0.0 - 0.9 % [facility] Comment on above: Immature Granulocyte Count (IG) includes promyelocytes, myelocytes and metamyelocytes but does not include bands. Percent differential counts (%) should be interpreted in the context of the absolute cell counts (cells/UL). Interpretation and review of laboratory results Abnormal [facility] Lymphocytes (Bld) [#/Vol] 1.95 10*3/uL [facility] Lymphocytes/100 WBC (Bld) 18.2 % 13.0 - 44.0 % [facility] MCH (RBC) [Entitic mass] 28.7 pg 26.0 - 34.0 pg [facility] MCHC (RBC) [Mass/Vol] 32.4 g/dL 32.0 - 36.0 g/dL [facility] MCV (RBC) [Entitic vol] 89 fL 80 - 100 fL [facility] Monocytes (Bld) [#/Vol] 0.66 10*3/uL [facility] Monocytes/100 WBC (Bld) 6.2 % 2.0 - 10.0 % [facility] Neutrophils (Bld) [#/Vol] 8.01 10*3/uL High [facility] Comment on above: Percent differential counts (%) should be interpreted in the context of the absolute cell counts (cells/uL). Neutrophils/100 WBC (Bld) 74.9 % 40.0 - 80.0 % [facility] Nucleated RBC/100 WBC (Bld) [Ratio] 0.0 % [facility] Platelets (Bld) [#/Vol] 250 10*3/uL [facility] RBC (Bld) [#/Vol] 4.18 10*6/uL [facility] WBC (Bld) [#/Vol] 10.7 10*3/uL [facility] Magnesiumon 02-23-2023 Magnesium [Mass/Vol] 1.52 mg/dL Low 1.60-2.40 [facility] Comment on above: Performed By: #### 3 4529-8 #### REGGIE Baugh ([id number]) [facility] ([facility]) [address] [place] [address] Magnesium [Mass/Vol] 1.52 mg/dL Low 1.60 - 2.40 mg/dL [facility] No Panel Informationon 02-23 Interpretation and review of laboratory results Abnormal [facility] Renal function 2000 panelon 02-23-2023 Albumin BCP dye [Mass/Vol] 3.5 g/dL Normal 3.4-5.0 [facility] Comment on above: Performed By: #### 3 4529-8 #### REGGIE Baugh ([id number]) [facility] ([facility]) [address] [place] [address] Anion gap [Moles/Vol] 10 mmol/L Normal 10-20 [facility] Comment on above: Performed By: #### 3 4529-8 #### REGGIE Baugh ([id number]) [facility] ([facility]) [address] [place] [address] Calcium [Mass/Vol] 8.8 mg/dL Normal 8.6-10.6 [facility] Comment on above: Performed By: #### 3 4529-8 #### REGGIE QUEZADA L ([id number]) [facility] ([facility]) [address] [place] [address] Chloride [Moles/Vol] 100 mmol/L Normal 98-107 [facility] Comment on above: Performed By: #### 3 4529-8 #### REGGIE QUEZADA L ([id number]) [facility] ([facility]) [address] [place] [address] CO2 [Moles/Vol] 31 mmol/L Normal 21-32 [facility] Comment on above: Performed By: #### 3 4529-8 #### REGGIE Baugh ([id number]) [facility] ([facility]) [address] [place] [address] Creatinine [Mass/Vol] 0.47 mg/dL Low 0.50-1.05 [facility] Comment on above: Performed By: #### 3 4529-8 #### REGGIE Baugh ([id number]) [facility] ([facility]) [address] [place] [address] 98268 GFR/1.73 sq M.predicted MDRD (S/P/Bld) [Vol rate/Area] mL/min/{1.73_m2} Normal >60 [facility] Comment on above: Result Comment: Calc ulations of estimated GFR are performed using the 2020 CKD-EPI Study Refit equation without the race variable for the IDMS-Traceable creatinine methods. https://jasn.asnjournals.org/content//ASN.74967446 88 Performed By: #### 3 4529-8 #### REGGIE Baugh ([id number]) [facility] ([facility]) [address] [place] [address] 18158 Glucose [Mass/Vol] 114 mg/dL High 74-99 [facility] Comment on above: Performed By: #### 3 4529-8 #### REGGIE Baugh ([id number]) [facility] ([facility]) [address] [place] [address] 02983 Phosphate [Mass/Vol] 3.5 mg/dL Normal 2.5-4.9 [facility] Comment on above: Result Comment: The performance characteristics of phosphorus testing in heparinized plasma have been validated by the individual laboratory site where testing is performed. Testing on heparinized plasma is not approved by the FDA; however, such approval is not necessary. Performed By: #### 3 4529-8 #### RGEGIE Baugh ([id number]) [facility] ([facility]) [address] [place] [address] 20586 Potassium [Moles/Vol] 4.1 mmol/L Normal 3.5-5.3 [facility] Comment on above: Performed By: #### 3 4529-8 #### REGGIE Baugh ([id number]) [facility] ([facility]) [address] [place] [address] 10494 Sodium [Moles/Vol] 137 mmol/L Normal 136-145 [facility] Comment on above: Performed By: #### 3 4529-8 #### REGGIE Baugh ([id number]) [facility] ([facility]) [address] [place] [address] 30984 Urea nitrogen [Mass/Vol] 13 mg/dL Normal 6-23 [facility] Comment on above: Performed By: #### 3 4529-8 #### REGGIE Baugh ([id number]) [facility] ([facility]) [address] [place] [address] 45592 Albumin BCP dye [Mass/Vol] 3.5 g/dL 3.4 - 5.0 g/dL [facility] Anion gap [Moles/Vol] 10 mmol/L 10 - 20 mmol/L [facility] Calcium [Mass/Vol] 8.8 mg/dL 8.6 - 10. 6 mg/dL [facility] Chloride [Moles/Vol] 100 mmol/L 98 - 107 mmol/L [facility] CO2 [Moles/Vol] 31 mmol/L 21 - 32 mmol/L [facility] Creatinine [Mass/Vol] 0.47 mg/dL Low 0.50 - 1.05 mg/dL [facility] GFR/1.73 sq M.predicted MDRD (S/P/Bld) [Vol rate/Area] - PINF [facility] Comment on above: Calculations of kortney mated GFR are performed using the 2020 CKD-EPI Study Refit equation without the race variable for the IDMS-Traceable creatinine methods. https://jasn.asnjournals.org/content/early/ASN.35056036 88 Glucose [Mass/Vol] 114 mg/dL High 74 - 99 mg/dL [facility] Phosphate [Mass/Vol] 3.5 mg/dL 2.5 - 4.9 mg/dL [facility] Comment on above: The performance hina acteristics of phosphorus testing in heparinized plasma have been validated by the individual laboratory site where testing is performed. Testing on heparinized plasma is not approved by the FDA; however, such approval is not necessary. Potassium [Moles/Vol] 4.1 mmol/L 3.5 - 5.3 mmol/L [facility] Sodium [Moles/Vol] 137 mmol/L 136 - 145 mmol/L [facility] Urea nitrogen [Mass/Vol] 13 mg/dL 6 - 23 mg/dL [facility] CT HEAD WO IV CONTRASTon CT HEAD WO IV CONTRAST Interpreted By: Meenakshi Coker, STUDY: CT HEAD WO IV CONTRAST; 02/22/2023 12:48 pm INDICATION: Signs/Symptoms:s/p crani for tegmen defect repair. COMPARISON: CT head from 10/16/2022 ACCESSION NUMBER(S): [id number] ORDERING CLINICIAN: KATHERINE POLANCO TECHNIQUE: Noncontrast axial CT scan of head was performed. Angled reformats in brain and bone windows were generated. The images were reviewed in bone, brain, blood and soft tissue windows. FINDINGS: Patient is status post right temporal craniotomy. There are acute postsurgical changes within the extracranial soft tissues. Deep to the craniotomy there is a small amount of extra-axial fluid collection with air locules. Postsurgical changes are also noted along the superior aspect of tegmen tympani. The gallagher-white differentiation is grossly intact. There is no intracranial hemorrhage. The ventricles, sulci and basal cisterns are within normal limits. Visualized paranasal sinuses are clear. There is opacification of right mastoid air cells. The left mastoid air cells are clear. IMPRESSION: Status post right temporal craniotomy with postsurgical repair along the right tegmen tympani. Signed by: Meenakshi Coker 02/22/2023 1:04 PM Dictation workstation: [id number] [facility] CT Head WO contraston 2022 Status post right temporal craniotomy with postsurgical repair along the right tegmen tympani. Signed by: Meenakshi Coker 02/22/2023 1:04 PM Dictation workstation: [id number] [facility] Interpreted By: Meenakshi Coker, STUDY: CT HEAD WO IV CONTRAST; 02/22/2023 12:48 pm INDICATION: Signs/Symptoms:s/p crani for tegmen defect repair. COMPARISON: CT head from 10/16/2022 ACCESSION NUMBER(S): [id number] ORDERING CLINICIAN: KATHERINE POLANCO TECHNIQUE: Noncontrast axial CT scan of head was performed. Angled reformats in brain and bone windows were generated. The images were reviewed in bone, brain, blood and soft tissue windows. FINDINGS: Patient is status post right temporal craniotomy. There are acute postsurgical changes within the extracranial soft tissues. Deep to the craniotomy there is a small amount of extra-axial fluid collection with air locules. Postsurgical changes are also noted along the superior aspect of tegmen tympani. The gallagher-white differentiation is grossly intact. There is no intracranial hemorrhage. The ventricles, sulci and basal cisterns are within normal limits. Visualized paranasal sinuses are clear. There is opacification of right mastoid air cells. The left mastoid air cells are clear. [facility] Meenakshi Coker MD - 02/22/2023 Interpreted By: Meenakshi Coker, STUDY: CT HEAD WO IV CONTRAST; 02/22/2023 12:48 pm INDICATION: Signs/Symptoms:s/p crani for tegmen defect repair. COMPARISON: CT head from 10/16/2022 ACCESSION NUMBER(S): [id number] ORDERING CLINICIAN: KATHERINE POLANCO TECHNIQUE: Noncontrast axial CT scan of head was performed. Angled reformats in brain and bone windows were generated. The images were reviewed in bone, brain, blood and soft tissue windows. FINDINGS: Patient is status post right temporal craniotomy. There are acute postsurgical changes within the extracranial soft tissues. Deep to the craniotomy there is a small amount of extra-axial fluid collection with air locules. Postsurgical changes are also noted along the superior aspect of tegmen tympani. The gallagher-white differentiation is grossly intact. There is no intracranial hemorrhage. The ventricles, sulci and basal cisterns are within normal limits. Visualized paranasal sinuses are clear. There is opacification of right mastoid air cells. The left mastoid air cells are clear. IMPRESSION: Status post right temporal craniotomy with postsurgical repair along the right tegmen tympani. Signed by: Meenakshi Coker 02/22/2023 1:04 PM Dictation workstation: [id number] [facility] Work Phone: Radiology Study observation (narrative) [facility] Work Phone: CT Head WO contrastOrdered B y: Meenakshi Coker on 02-22-2023 [facility] Work Phone: Glucose Test strip manual (B ld) [Mass/Vol]on 02-22-2023 Glucose [Mass/Vol] 107 mg/dL High 74-99 [facility] Comment on above: Performed By: #### 2 341-6 #### REGGIE Baugh ([id number]) [facility] ([facility]) [address] [place] [address] Glucose [Mass/Vol] 107 mg/dL High 74 - 99 mg/dL [facility] Interpretation and review of laboratory results Abnormal [facility] Bacteria identifiedon 2022 Bacteria identified Cx Nom (U) Test: Urine Culture Specimen Source: Clean Catch/Voided Specimen Type: Urine Specimen Date: 02/17/2023 1:34 PM Result Date: 02/18/2023 11:30 AM Result Status: Final result Abnormal: No Resulting Lab: [facility] [address] [place] [address] 15094 CULTURE No significant growth Normal [facility] Comment on above: Performed By: #### 6 30-4 #### REGGIE Baugh ([id number]) [facility] ([facility]) [address] [place] [address] 37632 Basic metabolic 2000 panelon 02-17-2023 Anion gap [Moles/Vol] 16 mmol/L Normal 10-20 [facility] Comment on above: Performed By: #### 2 4321-2 #### REGGIE Baugh ([id number]) [facility] ([facility]) [address] [place] [address] 40671 Calcium [Mass/Vol] 9.7 mg/dL Normal 8.6-10.6 [facility] Comment on above: Performed By: #### 2 4321-2 #### REGGIE QUEZADA L ([id number]) [facility] ([facility]) [address] [place] [address] 40822 Chloride [Moles/Vol] 100 mmol/L Normal 98-107 [facility] Comment on above: Performed By: #### 2 4321-2 #### REGGIE QUEZADA L ([id number]) [facility] ([facility]) [address] [place] [address] 37132 CO2 [Moles/Vol] 27 mmol/L Normal 21-32 [facility] Comment on above: Performed By: #### 2 4321-2 #### REGGIE QUEZADA L ([id number]) [facility] ([facility]) [address] [place] [address] [place] [address] Creatinine [Mass/Vol] 0.62 mg/dL Normal 0.50-1.05 [facility] Comment on above: Performed By: #### 2 4321-2 #### REGGIE Baugh ([id number]) [facility] ([facility]) [address] [place] [address] GFR/1.73 sq M.predicted MDRD (S/P/Bld) [Vol rate/Area] mL/min/{1.73_m2} Normal >60 [facility] Comment on above: Result Comment: Calc ulations of estimated GFR are performed using the 2020 CKD-EPI Study Refit equation without the race variable for the IDMS-Traceable creatinine methods. https://jasn.asnjournals.org/content/early//ASN.06456979 88 Performed By: #### 2 4321-2 #### REGGIE Baugh ([id number]) [facility] ([facility]) [address] [place] [address] 13392 Glucose [Mass/Vol] 90 mg/dL Normal 74-99 [facility] Comment on above: Performed By: #### 2 4321-2 #### REGGIE Baugh ([id number]) [facility] ([facility]) [address] [place] [address] 22005 Potassium [Moles/Vol] 4.9 mmol/L Normal 3.5-5.3 [facility] Comment on above: Performed By: #### 2 4321-2 #### REGGIE Baugh ([id number]) [facility] ([facility]) [address] [place] [address] Sodium [Moles/Vol] 138 mmol/L Normal 136-145 [facility] Comment on above: Performed By: #### 2 4321-2 #### REGGIE Baugh ([id number]) [facility] ([facility]) [address] [place] [address] 10583 Urea nitrogen [Mass/Vol] 25 mg/dL High 6-23 [facility] Comment on above: Performed By: #### 2 4321-2 #### REGGIE Baugh ([id number]) [facility] ([facility]) [address] [place] [address] 22507 Blood type and Indirect anti body screen panel (Bld)on 02-17-2023 ABO group Nom (Bld) O Normal [facility] Comment on above: Performed By: #### 3 4532-2 #### REGGIE Baugh ([id number]) [facility] ([facility]) [address] [place] [address] 55539 Blood group antibody screen Ql Negative [facility] Comment on above: Performed By: #### 3 4532-2 #### REGGIE Baugh ([id number]) [facility] ([facility]) [address] [place] [address] 92242 D Ag Ql (Bld) Positive [facility] Comment on above: Result Comment: 2nd ABO test required. Order and Collect VERAB Performed By: #### 3 4532-2 #### REGGIE Baugh ([id number]) [facility] ([facility]) [address] [place] [address] 83666 CBC panel Auto (Bld)on 02-17 Erythrocyte distribution width (RBC) [Ratio] 13.1 % Normal 11.5-14.5 [facility] Comment on above: Performed By: #### 5 8410-2 #### REGGIE Baugh ([id number]) [facility] ([facility]) [address] [place] [address] 77335 Hematocrit (Bld) [Volume fraction] 41.4 % Normal 36.0-46.0 [facility] Comment on above: Performed By: #### 5 8410-2 #### REGGIE Baugh ([id number]) [facility] ([facility]) [address] [place] [address] 45966 Hemoglobin (Bld) [Mass/Vol] 13.3 g/dL Normal 12.0-16.0 [facility] Comment on above: Performed By: #### 5 8410-2 #### REGGIE Baugh ([id number]) [facility] ([facility]) [address] [place] [address] MCH (RBC) [Entitic mass] 28.9 pg Normal 26.0-34.0 [facility] Comment on above: Performed By: #### 5 8410-2 #### REGGIE Baugh ([id number]) [facility] ([facility]) [address] [place] [address] 63842 MCHC (RBC) [Mass/Vol] 32.1 g/dL Normal 32.0-36.0 [facility] Comment on above: Performed By: #### 5 8410-2 #### REGGIE Baugh ([id number]) [facility] ([facility]) [address] [place] [address] 65821 MCV (RBC) [Entitic vol] 90 fL Normal 80-100 [facility] Comment on above: Performed By: #### 5 8410-2 #### REGGIE Baugh ([id number]) [facility] ([facility]) [address] [place] [address] 00653 Nucleated RBC/100 WBC (Bld) [Ratio] 0.0 /100 WBCs Normal 0.0-0.0 [facility] Comment on above: Performed By: #### 5 8410-2 #### REGGIE Baugh ([id number]) [facility] ([facility]) [address] [place] [address] 34438 Platelets (Bld) [#/Vol] 294 x10*3/uL Normal 150-450 [facility] Comment on above: Performed By: #### 5 8410-2 #### REGGIE Baugh ([id number]) [facility] ([facility]) [address] [place] [address] 64500 RBC (Bld) [#/Vol] 4.61 x10*6/uL Normal 4.00-5.20 [facility] Comment on above: Performed By: #### 5 8410-2 #### REGGIE Baugh ([id number]) [facility] ([facility]) [address] [place] [address] WBC (Bld) [#/Vol] 8.5 x10*3/uL Normal 4.4-11.3 [facility] Comment on above: Performed By: #### 5 8410-2 #### REGGIE Baugh ([id number]) [facility] ([facility]) [address] [place] [address] HbA1c (Bld) [Mass fraction]o n 02-17-2023 Average glucose Estimated from glycated hemoglobin (Bld) [Mass/Vol] 123 mg/dL Normal Not Established [facility] Comment on above: Order Comment: Diagn osis of Diabetes-Adults Non-Diabetic: < or = 5.6% Increased risk for developing diabetes: 5.7-6.4% Diagnostic of diabetes: > or = 6.5% Monitoring of Diabetes Age (y)....................... Therapeutic Goal (%) Adults: >18.........................<7.0 Pediatrics: 13-18...................<7.5 Pediatrics: 7-12....................<8.0 Pediatrics: 0-6..................... 7.5-8.5 [employer]. Diabetes Care 33(S1)Mar 2009 Performed By: #### 4 548-4 #### REGGIE Baugh ([id number]) [facility] ([facility]) [address] [place] [address] 53580 Hemoglobin A1c/Hemoglobin.to gustavo 02-17-2023 HbA1c (Bld) [Mass fraction] 5.9 % High see below [facility] Comment on above: Order Comment: Diagn osis of Diabetes-Adults Non-Diabetic: < or = 5.6% Increased risk for developing diabetes: 5.7-6.4% Diagnostic of diabetes: > or = 6.5% Monitoring of Diabetes Age (y)....................... Therapeutic Goal (%) Adults: >18.........................<7.0 Pediatrics: 13-18...................<7.5 Pediatrics: 7-12....................<8.0 Pediatrics: 0-6..................... 7.5-8.5 [employer]. Diabetes Care 33(S1), Mar 2009 Performed By: #### 4 548-4 #### REGGIE Baugh ([id number]) [facility] ([facility]) [address] [place] [address] 52525 PT and aPTT panel Coag (PPP) on 02-17-2023 aPTT Coag (PPP) [Time] 36 s Normal 27-38 [facility] Comment on above: Order Comment: The A PTT is no longer used for monitoring Unfractionated Heparin Therapy. For monitoring Heparin Therapy, use the Heparin Assay. Performed By: #### 3 4529-8 #### REGGIE Baugh ([id number]) [facility] ([facility]) [address] [place] [address] 79257 INR Coag (PPP) [Relative time] 1.1 Normal 0.9-1.1 [facility] Comment on above: Order Comment: The A PTT is no longer used for monitoring Unfractionated Heparin Therapy. For monitoring Heparin Therapy, use the Heparin Assay. Performed By: #### 3 4529-8 #### REGGIE Baugh ([id number]) [facility] ([facility]) [address] [place] [address] 10356 PT Coag (PPP) [Time] 12.8 s Normal 9.8-12.8 [facility] Comment on above: Order Comment: The A PTT is no longer used for monitoring Unfractionated Heparin Therapy. For monitoring Heparin Therapy, use the Heparin Assay. Performed By: #### 3 4529-8 #### REGGIE Baugh ([id number]) [facility] ([facility]) [address] [place], [place] [address] Staphylococcus aureus.methic illin resistant isolateon 02-17-2023 MRSA isol Org specific cx Ql (Nose) Test: Staphylococcus aureus/MRSA colonization, Culture Specimen Source: Nares/Axilla/Groin Specimen Type: Swab Specimen Date: 02/17/2023 1:34 PM Result Date: 02/19/2023 7:40 AM Result Status: Final result Abnormal: No Resulting Lab: [facility] [address] [place], [place] [address] CULTURE No Staphylococcus aureus isolated Normal [facility] Comment on above: Performed By: #### 5 2969-3 #### REGGIE Baugh ([id number]) [facility] ([facility]) [address] [place], [place] [address] Urinalysis complete W Reflex Culture panel (U)on 02-17-2023 Appearance (U) Clear Normal Clear [facility] Comment on above: Performed By: #### 5 8077-9 #### REGGIE Baugh ([id number]) [facility] ([facility]) [address] [place] [address] 61003 Bilirubin (U) [Mass/Vol] Negative Normal NEGATIVE [facility] Comment on above: Performed By: #### 5 8077-9 #### REGGIE Baugh ([id number]) [facility] ([facility]) [address] [place] [address] 56791 Color (U) Yellow Normal Straw, Yellow [facility] Comment on above: Performed By: #### 5 8077-9 #### REGGIE Baugh ([id number]) [facility] ([facility]) [address] [place] [address] 90413 Glucose Auto test strip (U) [Mass/Vol] Negative Normal NEGATIVE [facility] Comment on above: Performed By: #### 5 8077-9 #### REGGIE Baugh ([id number]) [facility] ([facility]) [address] [place] [address] 80749 Ketones (U) [Mass/Vol] Negative Normal NEGATIVE [facility] Comment on above: Performed By: #### 5 8077-9 #### REGGIE Baugh ([id number]) [facility] ([facility]) [address] [place] [address] 02899 Leukocyte esterase Auto test strip Ql (U) SMALL (1+) Abnormal NEGATIVE [facility] Comment on above: Performed By: #### 5 8077-9 #### REGGIE Baugh ([id number]) [facility] ([facility]) [address] [place] [address] 31436 Nitrite Auto test strip Ql (U) Negative Normal NEGATIVE [facility] Comment on above: Performed By: #### 5 8077-9 #### REGGIE Baugh ([id number]) [facility] ([facility]) [address] [place] [address] 76296 pH (U) 5.0 [pH] Normal 5.0, 5.5, 6.0, 6.5, 7.0, 7.5, 8.0 [facility] Comment on above: Performed By: #### 5 8077-9 #### REGGIE Baugh ([id number]) [facility] ([facility]) [address] [place] [address] 61729 Protein (U) [Mass/Vol] Negative Normal NEGATIVE [facility] Comment on above: Performed By: #### 5 8077-9 #### REGGIE Baugh ([id number]) [facility] ([facility]) [address] [place] [address] 23657 RBC (U) [#/Vol] Negative Normal NEGATIVE [facility] Comment on above: Performed By: #### 5 8077-9 #### REGGIE Baugh ([id number]) [facility] ([facility]) [address] [place] [address] 78571 Specific gravity (U) [Rel density] 1.019 Normal 1.005-1.035 [facility] Comment on above: Performed By: #### 5 8077-9 #### REGGIE QUEZADA L ([id number]) [facility] ([facility]) [address] [place] [address] 61922 Urobilinogen (U) [Mass/Vol] mg/dL Normal <2.0 [facility] Comment on above: Performed By: #### 5 8077-9 #### REGGIE Baugh ([id number]) [facility] ([facility]) [address] [place] [address] 48653 Urinalysis microscopic panel Auto Ql (U)on 02-17-2023 Epithelial cells.squamous Auto (Urine sed) [#/Area] 1-9 (SPARSE) Normal Reference range not established. [facility] Comment on above: Performed By: #### 5 3315-8 #### REGGIE Baugh ([id number]) [facility] ([facility]) [address] [place] [address] 42114 RBC Auto (Urine sed) [#/Area] 1-2 Normal NONE, 1-2, 3-5 [facility] Comment on above: Performed By: #### 5 3315-8 #### REGGIE Baugh ([id number]) [facility] ([facility]) [address] [place] [address] 90228 WBC Auto (Urine sed) [#/Area] 1-5 Normal 1-5, NONE [facility] Comment on above: Performed By: #### 5 3315-8 #### REGGIE Baugh ([id number]) [facility] (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 The joint spaces are preserved. There is no evidence of acute displaced fracture. There is plantar surface calcaneal spurring. There is diffuse soft tissue swelling. XR/XR foot LT min 3V* IMPRESSION: No acute displaced fracture. There is a remote healed fifth metatarsal fracture. There is diffuse soft tissue swelling which is nonspecific. Impression dictated by: Alli Woods M.D.09/12/2022 12:29 PM Dictation Location: [place] [address] Transcribed By: [facility] 09/12/22 1229 Dictated By: Alli Woods II, MD 09/12/22 1228 Signed By: 09/12/22 1229 Normal [facility] XR foot LT min 3V* [facility] [employer] Other XR foot LT min 3V* [facility] [employer] Other XR foot LT min 3V* [address] [facility] [employer] Other XR foot LT min 3V* [place] [address] [employer] Other XR foot LT min 3V* XRay Report [employer] Other XR foot LT min 3V* Signed [employer] Other XR foot LT min 3V* Patient: Ya Womack MR#: [id number] [employer] Other XR foot LT min 3V* 671 [employer] Other XR foot LT min 3V* : 1965 Acct:[id number] [employer] Other XR foot LT min 3V* Age/Sex: 57 / F ADM Date: 09/12/22 [employer] Other XR foot LT min 3V* Loc: XDUCLY Room: Type: [facility] [employer] Other XR foot LT min 3V* Attending Dr: Carol CORTEZ [employer] Other XR foot LT min 3V* Copies to: DANA Che [employer] Other XR foot LT min 3V* Ordering Provider: DANA Che [employer] Other XR foot LT min 3V* Date of Service: 09/12/22 [employer] Other XR foot LT min 3V* XR/XR foot LT min 3V*: Left foot pain [employer] Other XR foot LT min 3V* XR foot LT min 3V* 09/12/2022 12:11 PM [employer] Other XR foot LT min 3V* SIGNS AND SYMPTOMS: Left foot pain and swelling [employer] Other XR foot LT min 3V* PROTOCOL: Frontal, lateral, and oblique radiographs of the left foot [employer] Other XR foot LT min 3V* COMPARISON: None [employer] Other XR foot LT min 3V* FINDINGS: [employer] Other XR foot LT min 3V* There is a remote healed fifth metatarsal fracture. The joint spaces are preserved. There is no [employer] Other XR foot LT min 3V* evidence of acute displaced fracture. There is plantar surface calcaneal spurring. There is diffuse [employer] Other XR foot LT min 3V* soft tissue swelling. [employer] Other XR foot LT min 3V* XR/XR foot LT min 3V* [employer] Other XR foot LT min 3V* IMPRESSION: [employer] Other XR foot LT min 3V* No acute displaced fracture. [employer] Other XR foot LT min 3V* There is a remote healed fifth metatarsal fracture. [employer] Other XR foot LT min 3V* There is diffuse soft tissue swelling which is nonspecific. [employer] Other XR foot LT min 3V* Impression dictated by: Alli Woods M.D.09/12/2022 12:29 PM [employer] Other XR foot LT min 3V* Dictation Location: [facility]IO-PC-13 [employer] Other XR foot LT min 3V* Transcribed By: KEERTHI 09/12/22 122 [employer] Other XR foot LT min 3V* Dictated By: Alli Woods II, MD 09/12/22 [facility] [employer] Other XR foot LT min 3V* Signed By: [employer] Other XR foot LT min 3V* 09/12/[address] [place] [address] [employer] Other FREE T4on 12-12-2021 Free T4 [Mass/Vol] 0.86 ng/dL Normal 0.76-1.46 [facility] Comment on above: Performed By: #### F T4 #### [facility] [address] [place] [address] Dr. Jose Luis Diaz MG MAMM SCREEN 3D RAFY CADon 12-12-2021 MG MAMM SCREEN 3D RAFY CAD Patient: YA WOMACK Exam Date: 12/12/2021 : 1965 Gender:F Ordering : DR HARLAN ALMEIDA Admission #: [id number] Family : OLAF Lucia ANGUIANO Order #: [id number] CLICK HERE TO VIEW EXAM RADIOLOGY REPORT PROCEDURE: MAMMOGRAM SCREENING 3D BILATERAL CAD COMPARISON: MG MAMM SCREEN RAFY W CAD, 09/15/2016. MG MAMM SCREEN RAFY W CAD, 09/21/2017. INDICATIONS: Screening mammography Calculator Name NCI Breast Cancer Risk Assessment Tool 5 Year Breast Cancer Risk 1.10% Lifetime Breast Cancer Risk 7.10% Personal Breast Cancer No Personal Ovarian Cancer No Treatments None Family Cancers Brother with lung cancer at age 51; Uncle-maternal with lung cancer at age 50. LOCATION: [facility] BREAST COMPOSITION: Almost entirely fatty. FINDINGS: DIAGNOSTIC CATEGORY 1--NEGATIVE. NO CHANGE FROM COMPARISON ASSESSMENT. RIGHT BREAST: No significant suspicious finding. LEFT BREAST: No significant suspicious finding. RECOMMENDATIONS: ROUTINE MAMMOGRAM AND CLINICAL EVALUATION IN 12 MONTHS. PLEASE NOTE: A NORMAL MAMMOGRAM DOES NOT EXCLUDE THE POSSIBILITY OF BREAST CANCER. A CLINICALLY SUSPICIOUS PALPABLE LUMP SHOULD BE BIOPSIED. Dictated by: Gini Thompson MD on 12/12/2021 at 12:55 Approved by: Gini Thompson MD on 12/12/2021 at 12:58 Normal [facility] TSHon 12-12-2021 TSH 1.592 uIU/mL Normal 0.358-3.740 [facility] Comment on above: Performed By: #### T SH #### [facility] [address] [address] [address] Jose Luis Diaz MICROALBUMIN/ CREATININE RAT IOon 11-25-2021 Albumin, Urine 170.0 ug/mL Normal Not Estab. [facility] Comment on above: Performed By: #### M ALBCRL #### [facility] [address], [place] [address] Dr. Jose Luis Diaz Albumin/ Creatinine Ratio 78 mg/g creat Critically high 0-29 [facility] Comment on above: Result Comment: Norm al: 0 - 29 Moderately increased: 30 - 300 Severely increased: >300 Performed By: #### M ALBCRL #### [facility] [id number] Jose Luis Diaz Creatinine, Urine 216.7 mg/dL Normal Not Estab. [facility] Comment on above: Performed By: #### M ALBCRL #### [facility] [id number] Jose Luis Diaz GLYCOHEMOGLOBIN A1Con 2021 ADA RECOMMENDATION SEE BELOW Normal [facility] Comment on above: Result Comment: ADA RECOMMENDED LIMIT 4.0 - 6.0 ADA THERAPEUTIC TARGET < 7.0 ACTION SUGGESTED > 7.0 Performed By: #### A 1C #### [facility] [address] [place] [address] Dr. Jose Luis Diaz Glucose [Mass/Vol] 126 mg/dL Normal [facility] Comment on above: Performed By: #### A 1C #### [facility] [address] [place] [address] Dr. Jose Luis Diaz HbA1c (Bld) [Mass fraction] 6.0 % Normal 4.5-6.2 [facility] Comment on above: Performed By: #### A 1C #### [facility] [address] [place] [address] Dr. Jose Luis Diaz LIPID PROFILEon 11-24-2021 CHOL-HDL RATIO NORM SEE BELOW Normal [facility] Comment on above: Result Comment: 3.3 - 4.4 LOW RISK 4.4 - 7.1 AVERAGE RISK 7.1 - 11.0 MODERATE RISK >11.0 HIGH RISK Performed By: #### L IPID, CMP #### [facility] [address] [place] [address] Dr. Jose Luis Diaz Cholesterol [Mass/Vol] 201 mg/dL Critically high <=200 [facility] Comment on above: Performed By: #### L IPID, CMP #### [facility] [address] [place] [address] Dr. Jose Luis Diaz Cholesterol in HDL [Mass/Vol] 60 mg/dL Normal 40-60 [facility] Comment on above: Performed By: #### L IPID, CMP #### [facility] [address] [address] [address] Jose Luis Diaz Cholesterol in LDL [Mass/Vol] 111.0 mg/dL Normal [facility] Comment on above: Performed By: #### L IPID, CMP #### [facility] [address] [address] [address] Jose Luis Diaz Cholesterol.total/C holesterol in HDL [Mass ratio] 3.4 {ratio} Normal [facility] Comment on above: Performed By: #### L IPID, CMP #### [facility] [address] [address] [address] Jose Luis Diaz HDL NORMAL > or = 60 mg/dl - LOW CARDIOVASCULAR RISK <40 mg/dl - HIGH CARDIOVASCULAR RISK Normal [facility] Comment on above: Performed By: #### L IPID, CMP #### [facility] [address] [place] [address] Dr. Jose Luis Diaz LDL CALC NORMAL SEE BELOW Normal [facility] Comment on above: Result Comment: <100 mg/dl OPTIMAL 100 - 129 mg/dl NEAR OR ABOVE OPTIMAL 130 - 159 mg/dl BORDERLINE HIGH 160 - 189 mg/dl HIGH >190 mg/dl VERY HIGH Performed By: #### L IPID, CMP #### [facility] [address] [place] [address] Dr. Jose Luis Diaz Triglyceride [Mass/Vol] 150 mg/dL Normal <=150 [facility] Comment on above: Performed By: #### L IPID, CMP #### [facility] [address] [place] [address] Dr. Jose Luis Diaz VLDL CALC 30.0 mg/dL Normal [facility] Comment on above: Performed By: #### L IPID, CMP #### [facility] [address] [place] [address] Dr. Jose Luis Diaz PROF 14(COMP METB)on 022 Albumin [Mass/Vol] 3.6 g/dL Normal 3.4-5.0 [facility] Comment on above: Performed By: #### L IPID, CMP #### [facility] [address] [place] [address] Dr. Jose Luis Diaz Albumin/Globulin [Mass ratio] 0.8 {ratio} Normal [facility] Comment on above: Performed By: #### L IPID, CMP #### [facility] [address] [address] [address] Jose Luis Diaz ALP [Catalytic activity/Vol] 79 U/L Normal 46-116 [facility] Comment on above: Performed By: #### L IPID, CMP #### [facility] [address] [address] [address] Jose Luis Diaz ALT [Catalytic activity/Vol] 23 U/L Normal 14-59 [facility] Comment on above: Performed By: #### L IPID, CMP #### [facility] [address] [address] [address] Jose Luis Diaz Anion gap [Moles/Vol] 10.9 mmol/L Normal [facility] Comment on above: Performed By: #### L IPID, CMP #### [facility] [address] [place] [address] Dr. Jose Luis Diaz AST [Catalytic activity/Vol] 16 U/L Normal 15-37 [facility] Comment on above: Performed By: #### L IPID, CMP #### [facility] [address] [address] [address] Jose Luis Diaz Bilirubin [Mass/Vol] 0.4 mg/dL Normal 0.2-1.0 [facility] Comment on above: Performed By: #### L IPID, CMP #### [facility] [address] [address] [address] Jose Luis Diaz Calcium [Mass/Vol] 9.4 mg/dL Normal 8.5-10.1 [facility] Comment on above: Performed By: #### L IPID, CMP #### [facility] [address] [address] [address] Jose Luis Diaz Chloride [Moles/Vol] 101 mmol/L Normal 98-107 [facility] Comment on above: Performed By: #### L IPID, CMP #### [facility] [address] [address] [address] Jose Luis Diaz CO2 [Moles/Vol] 29.2 mmol/L Normal 21.0-32.0 [facility] Comment on above: Performed By: #### L IPID, CMP #### [facility] [address] [address] [address] Jose Luis Diaz Creatinine [Mass/Vol] 0.80 mg/dL Normal 0.55-1.02 [facility] Comment on above: Performed By: #### L IPID, CMP #### [facility] [address] [address] [address] Jose Luis Diaz EGFR-AF TURKMEN >60 Normal >=60 [facility] Comment on above: Performed By: #### L IPID, CMP #### [facility] [address] [address] [address] Jose Luis Diaz EGFR-NON AF TURKMEN >60 Normal >=60 [facility] Comment on above: Performed By: #### L IPID, CMP #### [facility] [address] [address] [address] Jose Luis Diaz Globulin (S) [Mass/Vol] 4.3 g/dL Normal [facility] Comment on above: Performed By: #### L IPID, CMP #### [facility] [address] [address] [address] Jose Luis Diaz Glucose [Mass/Vol] 129 mg/dL Critically high 74-106 [facility] [place] [facility] Comment on above: Performed By: #### L IPID, CMP #### [facility] [address] [address] [address] Jose Luis Diaz Potassium [Moles/Vol] 4.1 mmol/L Normal 3.5-5.1 [facility] Comment on above: Performed By: #### L IPID, CMP #### [facility] [address] [address] [address] Jose Luis Diaz Protein [Mass/Vol] 7.9 g/dL Normal 6.4-8.2 [facility] Comment on above: Performed By: #### L IPID, CMP #### [facility] [address] [address] [address] Jose Luis Diaz Sodium [Moles/Vol] 137 mmol/L Normal 136-145 [facility] Comment on above: Performed By: #### L IPID, CMP #### [facility] [address], [place] [address] Dr. Jose Luis Diaz Urea nitrogen [Mass/Vol] 12.0 mg/dL Normal 7.0-18.0 [facility] Comment on above: Performed By: #### L IPID, CMP #### [facility] [address], [place] [address] Dr. Jose Luis Diaz Urea nitrogen/Creatinine [Mass ratio] 15.0 mg/mg Normal [facility] Comment on above: Performed By: #### L IPID, CMP #### [facility] [address], [place] [address] Dr. Jose Luis Diaz XR ankle RT min 3V*on 2021 XR ankle RT min 3V* [facility] [employer] Other XR ankle RT min 3V* [facility] [employer] Other XR ankle RT min 3V* [address] [place] [address] [employer] Other XR ankle RT min 3V* [place] [address] [employer] Other XR ankle RT min 3V* XRay Report [place] [employer] Other XR ankle RT min 3V* Signed [employer] Other XR ankle RT min 3V* Patient: Ya Womack MR#: [id number] [employer] Other XR ankle RT min 3V* 671 [employer] Other XR ankle RT min 3V* : 1965 Acct:[id number] [employer] Other XR ankle RT min 3V* Age/Sex: 56 / F ADM Date: 07/18/21 [employer] Other XR ankle RT min 3V* Loc: XDUCLY Room: Type: REG CLI [employer] Other XR ankle RT min 3V* Attending Dr: Carol CORTEZ [employer] Other XR ankle RT min 3V* Ordering Provider: DANA Che [employer] Other XR ankle RT min 3V* Date of Service: 07/18/21 [employer] Other XR ankle RT min 3V* XR/XR ankle RT min 3V*: Acute right ankle pain [employer] Other XR ankle RT min 3V* Copies to: DANA Che [employer] Other XR ankle RT min 3V* RIGHT ANKLE - 3 views [employer] Other XR ankle RT min 3V* CLINICAL HISTORY: Patient with right ankle 3 days ago walking down steps. Lateral ankle pain. [employer] Other XR ankle RT min 3V* COMPARISON: None [employer] Other XR ankle RT min 3V* FINDINGS: [employer] Other XR ankle RT min 3V* Soft tissue swelling. Chip fracture lateral malleolus. Ankle mortise appears intact. Plantar [employer] Other XR ankle RT min 3V* spurring. [employer] Other XR ankle RT min 3V* XR/XR ankle RT min 3V* [employer] Other XR ankle RT min 3V* IMPRESSION: Julia [employer] Other XR ankle RT min 3V* CHIP FRACTURE LATERAL MALLEOLUS WITH SOFT TISSUE SWELLING. [employer] Other XR ankle RT min 3V* Impression dictated by: Aidan Grullon Jr., D.O.07/18/2021 12:03 PM [employer] Other XR ankle RT min 3V* Dictation Location: RADIO-PC-13 [employer] Other XR ankle RT min 3V* Transcribed By: PWS 07/18/21 1203 [employer] Other XR ankle RT min 3V* Dictated By: Aidan Grullon Jr, DO 07/18/21 1203 [employer] Other XR ankle RT min 3V* Signed By: [employer] Other XR ankle RT min 3V* 07/18/21 1203 No rt [employer] Other COMPREHENSIVE METABOLIC PANE [facility] 05-01-2021 Albumin [Mass/Vol] 4.4 g/dL Normal 3.6-5.1 [facility] Comment on above: Performed By: #### 1 0231, 7600 #### [facility] [place] [address] Code Clerk: Pedrito Fontaine MD Albumin/Globulin [Mass ratio] 1.6 {ratio} Normal 1.0-2.5 [facility] Comment on above: Performed By: #### 1 0231, 7600 #### [facility] [place] [address] Code Clerk: Pedrito Fontaine MD ALP [Catalytic activity/Vol] 63 U/L Normal 37-153 [facility] Comment on above: Performed By: #### 1 0231, 7600 #### [facility] [place] [address] Code Clerk: Pedrito Fontaine MD ALT [Catalytic activity/Vol] 17 U/L Normal 6-29 [facility] Comment on above: Performed By: #### 1 0231, 7600 #### [facility] [place] [address] Code Clerk: Pedrito Fontaine MD AST [Catalytic activity/Vol] 18 U/L Normal 10-35 [facility] Comment on above: Performed By: #### 1 023, 7600 #### [facility] of [address], [address] [place] [address] Code Clerk: Pedrito Fontaine MD Bilirubin [Mass/Vol] 0.4 mg/dL Normal 0.2-1.2 [facility] Comment on above: Performed By: #### 1 023, 7600 #### [facility] of [address], [address] [place] [address] Code Clerk: Pedrito Fontaine MD BUN/CREATININE RATIO NOT APPLICABLE Normal 6-22 [facility] Comment on above: Performed By: #### 1 023, 7600 #### [facility] of [address] [address] Code Clerk: Pedrito Fontaine MD Calcium [Mass/Vol] 9.7 mg/dL Normal 8.6-10.4 [facility] Comment on above: Performed By: #### 1 023, 7600 #### [facility] of [address], [address] [place] [address] Code Clerk: Pedrito Fontaine MD Chloride [Moles/Vol] 104 mmol/L Normal 98-110 [facility] Comment on above: Performed By: #### 1 023, 7600 #### [facility] of [address] [address] Code Clerk: Pedrito Fontaine MD CO2 [Moles/Vol] 27 mmol/L Normal 20-32 [facility] Comment on above: Performed By: #### 1 023, 7600 #### [facility] of [address], [address] [place] [address] Code Clerk: Pedrito Fontaine MD Creatinine [Mass/Vol] 0.69 mg/dL Normal 0.50-1.05 [facility] Comment on above: Result Comment: For patients >49 years of age, the reference limit for Creatinine is approximately 13% higher for people identified as -Samoan. Performed By: #### 1 023, 7600 #### [facility] of [place] [address] [place] [address] Code Clerk: Pedrito Fontaine MD eGFR NON-AFR. TURKMEN 97 mL/min/1.73m2 Normal > OR = 60 [facility] Comment on above: Performed By: #### 1 023, 7600 #### [facility] [place] [address] Code Clerk: Pedrito Fontaine MD GFR/1.73 sq M.predicted among blacks MDRD (S/P/Bld) [Vol rate/Area] 112 mL/min/{1.73_m2} Normal > OR = 60 [facility] Comment on above: Performed By: #### 1 230, 7600 #### [facility] [place] [address] Code Clerk: Pedrito Fontaine MD Globulin (S) [Mass/Vol] 2.8 g/dL Normal 1.9-3.7 [facility] Comment on above: Performed By: #### 1 230, 7600 #### [facility] [place] [address] Code Clerk: Pedrito Fontaine MD Glucose [Mass/Vol] 104 mg/dL High 65-99 [facility] Comment on above: Result Comment: Fasting reference interval For someone without known diabetes, a glucose value between 100 and 125 mg/dL is consistent with prediabetes and should be confirmed with a follow-up test. Performed By: #### 1 230, 7600 #### [facility] [place] [address] Code Clerk: Pedrito Fontaine MD Potassium [Moles/Vol] 4.8 mmol/L Normal 3.5-5.3 [facility] Comment on above: Performed By: #### 1 023, 7600 #### [facility] [place] [address] Code Clerk: Pedrito Fontaine MD Protein [Mass/Vol] 7.2 g/dL Normal 6.1-8.1 [facility] Comment on above: Performed By: #### 1 1, 7600 #### [facility] [address], [address] [place] [address] Code Clerk: Pedrito Fontaine MD Sodium [Moles/Vol] 143 mmol/L Normal 135-146 [facility] Comment on above: Performed By: #### 1 0231, 7600 #### [facility] [address], [address] [place] [address] Code Clerk: Pedrito Fontaine MD Urea nitrogen [Mass/Vol] 16 mg/dL Normal 7-25 [facility] Comment on above: Performed By: #### 1 0231, 7600 #### [facility] [address], [address] [place] [address] Code Clerk: Pedrito Fontaine MD LIPID PANEL, [facility] - Cholesterol [Mass/Vol] 195 mg/dL Normal <200 [facility] Comment on above: Order Comment: FASTI NG:YES FASTING: YES Performed By: #### 1 0231, 7600 #### [facility] [address], [address] [place] [address] Code Clerk: Pedrito Fontaine MD Cholesterol in HDL [Mass/Vol] 63 mg/dL Normal > OR = 50 [facility] Comment on above: Order Comment: FASTI NG:YES FASTING: YES Performed By: #### 1 0231, 7600 #### [facility] [address], [address] [place] [address] Code Clerk: Pedrito Fontaine MD Cholesterol in LDL [Mass/Vol] 101 mg/dL High [facility] Comment on above: Order Comment: FASTI NG:YES FASTING: YES Result Comment: Refe rence range: <100 Desirable range <100 mg/dL for primary prevention; <70 mg/dL for patients with CHD or diabetic patients with > or = 2 CHD risk factors. LDL-C is now calculated using the Crystal calculation, which is a validated novel method providing better accuracy than the Friedewald equation in the estimation of LDL-C. Keven CANNON et al. JOSEPH. 2013;310(19): 6462-1452 (http://education.[facility].[employer]/faq/SGK214) Performed By: #### 1 0231, 7600 #### [facility] [address], [address] [place] [address] Code Clerk: Pedrito Fontaine MD Cholesterol.total/C holesterol in HDL [Mass ratio] 3.1 {ratio} Normal <5.0 [facility] Comment on above: Order Comment: FASTI NG:YES FASTING: YES Performed By: #### 1 023, 7600 #### [facility] of [address], [address] [place] [address] Code Clerk: Pedrito Fontaine MD NON HDL CHOLESTEROL 132 mg/dL (calc) High <130 [facility] Comment on above: Order Comment: FASTI NG:YES FASTING: YES Result Comment: For patients with diabetes plus 1 major ASCVD risk factor, treating to a non-HDL-C goal of <100 mg/dL (LDL-C of <70 mg/dL) is considered a therapeutic option. Performed By: #### 1 023, 0 #### [facility] [address], [address] [place] [address] Code Clerk: Pedrito Fontaine MD Triglyceride [Mass/Vol] 192 mg/dL High <150 [facility] Comment on above: Order Comment: FASTI NG:YES FASTING: YES Performed By: #### 1 023, 7600 #### [facility] [address], [address] [place] [address] Code Clerk: Pedrito Fontaine MD [facility] METABOLIC PANE [facility] 10-09-2020 Albumin [Mass/Vol] 4.2 g/dL Normal 3.6-5.1 [facility] Comment on above: Performed By: #### 1 0231, 7600 #### [facility] [address], [address] [place] [address] Code Clerk: Pedrito Fontaine MD Albumin/Globulin [Mass ratio] 1.6 {ratio} Normal 1.0-2.5 [facility] Comment on above: Performed By: #### 1 0231, 7600 #### [facility] of [address], [address] [place] [address] Code Clerk: Pedrito Fontaine MD ALP [Catalytic activity/Vol] 56 U/L Normal 37-153 [facility] Comment on above: Performed By: #### 1 0231, 7600 #### [facility] of [address], [address] [place] [address] Code Clerk: Pedrito Fontaine MD ALT [Catalytic activity/Vol] 7 U/L Normal 6-29 [facility] Comment on above: Performed By: #### 1 0231, 7600 #### [facility] of [address], [address] [place] [address] Code Clerk: Pedrito Fontaine MD AST [Catalytic activity/Vol] 10 U/L Normal 10-35 [facility] Comment on above: Performed By: #### 1 023, 7600 #### [facility] of [address], [address] [place] [address] Code Clerk: Pedrito Fontaine MD Bilirubin [Mass/Vol] 0.3 mg/dL Normal 0.2-1.2 [facility] Comment on above: Performed By: #### 1 023, 7600 #### [facility] of [place] [address] Code Clerk: Pedrito Fontaine MD BUN/CREATININE RATIO NOT APPLICABLE Normal 6-22 [facility] Comment on above: Performed By: #### 1 0231, 7600 #### [facility] of [address], [address] [place] [address] Code Clerk: Pedrito Fontaine MD Calcium [Mass/Vol] 9.3 mg/dL Normal 8.6-10.4 [facility] Comment on above: Performed By: #### 1 0231, 7600 #### [facility] of [address], [address] [place] [address] Code Clerk: Pedrito Fontaine MD Chloride [Moles/Vol] 101 mmol/L Normal 98-110 [facility] Comment on above: Performed By: #### 1 0231, 7600 #### [facility] of [address], [address] [place] [address] Code Clerk: Pedrito Fontaine MD CO2 [Moles/Vol] 27 mmol/L Normal 20-32 [facility] Comment on above: Performed By: #### 1 023, 7600 #### [facility] of [place] [address] Code Clerk: Pedrito Fontaine MD Creatinine [Mass/Vol] 0.67 mg/dL Normal 0.50-1.05 [facility] Comment on above: Result Comment: For patients >49 years of age, the reference limit for Creatinine is approximately 13% higher for people identified as -Samoan. Performed By: #### 1 230, 7600 #### [facility] of [address], [address] [place] [address] Code Clerk: Pedrito Fontaine MD eGFR NON-AFR. TURKMEN 98 mL/min/1.73m2 Normal > OR = 60 [facility] Comment on above: Performed By: #### 1 230, 7600 #### [facility] of [place] [address] Code Clerk: Pedrito Fontaine MD GFR/1.73 sq M.predicted among blacks MDRD (S/P/Bld) [Vol rate/Area] 114 mL/min/{1.73_m2} Normal > OR = 60 [facility] Comment on above: Performed By: #### 1 230, 7600 #### [facility] of [address], [address] [place] [address] Code Clerk: Pedrito Fontaine MD Globulin (S) [Mass/Vol] 2.6 g/dL Normal 1.9-3.7 [facility] Comment on above: Performed By: #### 1 023, 7600 #### [facility] of [place] [address] Code Clerk: Pedrito Fontaine MD Glucose [Mass/Vol] 88 mg/dL Normal 65-99 [facility] Comment on above: Result Comment: Fasting reference interval Performed By: #### 1 0231, 7600 #### [facility] of [address], [address] [place] [address] Code Clerk: Pedrito Fontaine MD Potassium [Moles/Vol] 4.7 mmol/L Normal 3.5-5.3 [facility] Comment on above: Performed By: #### 1 0231, 7600 #### [facility] of [address], [address] [place] [address] Code Clerk: Pedrito Fontaine MD Protein [Mass/Vol] 6.8 g/dL Normal 6.1-8.1 [facility] Comment on above: Performed By: #### 1 0231, 7600 #### [facility] of [address], [address] [place] [address] Code Clerk: Pedrito Fontaine MD Sodium [Moles/Vol] 139 mmol/L Normal 135-146 [facility] Comment on above: Performed By: #### 1 0231, 7600 #### [facility] of [address], [address] [place] [address] Code Clerk: Pedrito Fontaine MD Urea nitrogen [Mass/Vol] 22 mg/dL Normal 7-25 [facility] Comment on above: Performed By: #### 1 0231, 7600 #### [facility] of [address], [address] [place] [address] Code Clerk: Pedrito Fontaine MD LIPID PANEL, [facility] 08-0 Cholesterol [Mass/Vol] 210 mg/dL High <200 [facility] Comment on above: Performed By: #### 1 0231, 7600 #### [facility] of [place] [address] Code Clerk: Pedrito Fontaine MD Cholesterol in HDL [Mass/Vol] 59 mg/dL Normal > OR = 50 [facility] Comment on above: Performed By: #### 1 0231, 7600 #### [facility] of [address], [address] [place] [address] Code Clerk: Pedrito Fontaine MD Cholesterol in LDL [Mass/Vol] 121 mg/dL High [facility] Comment on above: Result Comment: Refe rence range: <100 Desirable range <100 mg/dL for primary prevention; <70 mg/dL for patients with CHD or diabetic patients with > or = 2 CHD risk factors. LDL-C is now calculated using the Crystal calculation, which is a validated novel method providing better accuracy than the Friedewald equation in the estimation of LDL-C. Keven SS et al. JOSEPH. 2013;310(19): 3221-8488 (http://education.[employer]/faq/CFI188) Performed By: #### 1 0231, 8940 #### [facility] [place] [address] Code Clerk: Pedrito Fontaine MD Cholesterol.total/C holesterol in HDL [Mass ratio] 3.6 {ratio} Normal <5.0 [facility] Comment on above: Performed By: #### 1 023, 0 #### [facility] [place] [address] Code Clerk: Pedrito Fontaine MD NON HDL CHOLESTEROL 151 mg/dL (calc) High <130 [facility] Comment on above: Result Comment: For patients with diabetes plus 1 major ASCVD risk factor, treating to a non-HDL-C goal of <100 mg/dL (LDL-C of <70 mg/dL) is considered a therapeutic option. Performed By: #### 1 023, 0 #### [facility] [place] [address] Code Clerk: Pedrito Fontaine MD Triglyceride [Mass/Vol] 179 mg/dL High <150 [facility] Comment on above: Performed By: #### 1 0231, 7600 #### [facility] [place] [address] Code Clerk: Pedrito Fontaine MD KNEE LEFT 3 VWSon 03-10-2019 KNEE LEFT 3 VWS [facility] Department of Radiology [address] [place] [id number] Patient Name: YA WOMACK : 1965 Sex: F Age: Race: White Pt. Location: 84 Patient Status: O Ordered Date: 03/10/2019 3:35:00 PM Completed Date: 03/10/2019 03:37 PM Requesting Provider: RISA HAYWOOD Attending Provider: RISA HAYWOOD Report Copy To: Signs & Symptoms: M25.562 Pain in left knee I10 History: Daniela Comments: , Views (X-RAY, KNEE): AP, Lateral, [place] , Weight Bearing?: Y , Views (X-RAY, KNEE): AP, Lateral, [place] , Weight Bearing?: Y , , , Ordering Provider - RISA HAYWOOD PA-C , Exam: KNEE LEFT 3 VWS KNEE LEFT 3 VWS 03/10/2019 3:37 PM EST SIGNS AND SYMPTOMS: M25.562 Pain in left knee I10 TECHNOLOGIST COMMENTS: pt states having bilateral knee pain post fall 10 days ago QUESTION FOR THE RADIOLOGIST: , Views (X-RAY, KNEE): AP, Lateral, [place] , Weight Bearing?: Y , Views (X-RAY, KNEE): AP, Lateral, [place] , Weight Bearing?: Y , , , Ordering Provider - RISA HAYWOOD PA-C , PROTOCOL: AP,Lateral and Tangential views were obtained. COMPARISON: None FINDINGS: Advanced tricompartmental osteophytic changes are again seen and increased in severity since previous examination. Joint space narrowing and osteophyte formation and increased since prior study. There is no evidence for acute osseous adenopathy. No joint effusions are seen. IMPRESSION: 1. Worsening tricompartmental osteophytic changes since previous examination dated 7017. Electronically signed by:Gini Martin. Transcribed by: [email or web address], User Resident: Electronically Signed by: GINI MARTIN @ 03/10/2019 03:48 PM Normal [facility] Comment on above: Order Comment: , Vie ws (X-RAY, KNEE): AP, Lateral, [place] , Weight Bearing?: Y , Views (X-RAY, KNEE): AP, Lateral, [place] , Weight Bearing?: Y , , , Ordering Provider - RISA HAYWOOD PA-C , KNEE RIGHT 3 [facility] 0 KNEE RIGHT 3 S [facility] Department of Radiology [address] [place] [id number] Patient Name: YA WOMACK : 1965 Sex: F Age: Race: White Pt. Location: Patient Status: O Ordered Date: 03/10/2019 3:35:00 PM Completed Date: 03/10/2019 03:37 PM Requesting Provider: RISA HAYWOOD Attending Provider: RISA HAYWOOD Report Copy To: Signs & Symptoms: M25.561 Pain in right knee I10 History: [place] Comments: , Views (X-RAY, KNEE): AP, Lateral, [place] , Weight Bearing?: Y , Views (X-RAY, KNEE): AP, Lateral, [place] , Weight Bearing?: Y , , , Ordering Provider - RISA HAYWOOD PA-C , Exam: KNEE RIGHT 3 VWS KNEE RIGHT 3 VWS 03/10/2019 3:37 PM EST SIGNS AND SYMPTOMS: M25.561 Pain in right knee I10 TECHNOLOGIST COMMENTS: pt states having bilateral knee pain post fall 10 days ago QUESTION FOR THE RADIOLOGIST: , Views (X-RAY, KNEE): AP, Lateral, [place] , Weight Bearing?: Y , Views (X-RAY, KNEE): AP, Lateral, [place] , Weight Bearing?: Y , , , Ordering Provider - RISA HAYWOOD PA-C , PROTOCOL: AP,Lateral and Tangential views were obtained. COMPARISON: 05/12/2017 FINDINGS: Tricompartmental osteophytic changes are again seen and increased in severity since previous examination. Joint space narrowing and osteophyte formation is seen. No joint effusions are identified. IMPRESSION: 1. Worsening tricompartmental osteophytic changes since the previous examination dated 05/12/2017 Electronically signed by:Gini Martin. Transcribed by: [email or web address], User Resident: Electronically Signed by: GINI MARTIN @ 03/10/2019 03:49 PM Normal [facility] Comment on above: Order Comment: , Gi ws (X-RAY, KNEE): AP, Lateral, [place] , Weight Bearing?: Y , Views (X-RAY, KNEE): AP, Lateral, [place] , Weight Bearing?: Y , , , Ordering Provider - RISA HAYWOOD PA-C , Vital Signs Date Time Vital Sign Value Performing Clinician Facility 05-18-2023 13:11-0400 Body height 170.2 cm Brandon Sotelo APRN-HUGH Work Phone: [facility] 05-18-2023 13:11-0400 Body mass index (BMI) [Ratio] 43.68 kg/m2 Brandon Sotelo APRN-HUGH Work Phone: [facility] 05-18-2023 13:11-0400 Body temperature 97.3 [degF] Brandon Sotelo APRN-HUGH Work Phone: [facility] 05-18-2023 13:11-0400 Body weight 126.51 kg Brandon Sotelo APRN-HUGH Work Phone: [facility] 05-18-2023 13:11-0400 Diastolic blood pressure 80 mm[Hg] Brandon Sotelo APRN-HUGH Work Phone: [facility] 05-18-2023 13:11-0400 Heart rate 74 /min Brandon Sotelo APRN-HUGH Work Phone: [facility] 05-18-2023 13:11-0400 SaO2% (BldA) [Mass fraction] 95 % Brandon Sotelo APRN-HUGH Work Phone: [facility] 05-18-2023 13:11-0400 Systolic blood pressure 120 mm[Hg] Brandon Sotelo APRN-HUGH Work Phone: [facility] 04-23-2023 10:51-0500 Body height 167.64 cm [facility] 04-23-2023 10:51-0500 Body mass index (BMI) [Ratio] 49.2 kg/m2 [facility] 04-23-2023 10:51-0500 Body temperature 98.5 [degF] [facility] 04-23-2023 10:51-0500 Body weight 138.34 kg [facility] 04-23-2023 10:51-0500 Diastolic blood pressure 77 mm[Hg] [facility] 04-23-2023 10:51-0500 Heart rate 86 /min [facility] 04-23-2023 10:51-0500 Respiratory rate 18 /min [facility] 04-23-2023 10:51-0500 SaO2% (BldA) [Mass fraction] 98 % [facility] 04-23-2023 10:51-0500 Systolic blood pressure 128 mm[Hg] [facility] 03-16-2023 12:58-0500 Body height 167.6 cm Fercho Ham MD Work Phone: [facility] 03-16-2023 12:58-0500 Body mass index (BMI) [Ratio] 51.88 kg/m2 Fercho Ham MD Work Phone: [facility] 03-16-2023 12:58-0500 Body temperature 96.21 [degF] Fercho Ham MD Work Phone: [facility] 03-16-2023 12:58-0500 Body weight 145.79 kg Fercho Ham MD Work Phone: [facility] 02-25-2023 15:38-0500 Body temperature 97.7 [degF] Clayton Hawley MD Work Phone: [facility] 02-25-2023 15:38-0500 Diastolic blood pressure 77 mm[Hg] Clayton Hawley MD Work Phone: [facility] 02-25-2023 15:38-0500 Heart rate 81 /min Clayton Hawley MD Work Phone: [facility] 02-25-2023 15:38-0500 Respiratory rate 16 /min Clayton Hawley MD Work Phone: [facility] 02-25-2023 15:38-0500 SaO2% (BldA) [Mass fraction] 92 % Clayton Hawely MD Work Phone: [facility] 02-25-2023 15:38-0500 Systolic blood pressure 143 mm[Hg] Clayton Hawley MD Work Phone: [facility] 02-24-2023 00:00-0500 Body mass index (BMI) [Ratio] 54.05 kg/m2 Clayton Hawley MD Work Phone: [facility] 02-24-2023 00:00-0500 Body weight 151.9 kg Clayton Hawley MD Work Phone: [facility] 02-22-2023 06:35-0500 Body height 167.6 cm Clayton Hawley MD Work Phone: [facility] 10-08-2022 10:10-0400 Body height 172.72 cm Harmony Khan Other [employer] Other 10-08-2022 10:10-0400 Body mass index (BMI) [Ratio] 51.9 kg/m2 Harmony Khan Other [employer] Other 10-08-2022 10:10-0400 Body temperature 97.8 [degF] Harmony Khan Other [employer] Other 10-08-2022 10:10-0400 Body weight 154.86 kg Harmony Khan Other [employer] Other 10-08-2022 10:10-0400 Diastolic blood pressure 85 mm[Hg] Harmony Khan Other [employer] Other 10-08-2022 10:10-0400 Respiratory rate 18 /min Harmony Khan Other [employer] Other 10-08-2022 10:10-0400 SaO2% (BldA) [Mass fraction] 95 % Harmony Khan Other [employer] Other 10-08-2022 10:10-0400 Systolic blood pressure 137 mm[Hg] Harmony Khan Other [employer] Other 09-12-2022 11:15-0400 Body height 172.72 cm Carol Faye Other [employer] Other 09-12-2022 11:15-0400 Body mass index (BMI) [Ratio] 52.15 kg/m2 Carol Faye Other [employer] Other 09-12-2022 11:15-0400 Body temperature 98.1 [degF] Carol Faye Other [employer] Other 09-12-2022 11:15-0400 Body weight 155.58 kg Carol Faye Other [employer] Other 09-12-2022 11:15-0400 Diastolic blood pressure 73 mm[Hg] Carol Faye Other [employer] Other 09-12-2022 11:15-0400 Respiratory rate 18 /min Carol Faye Other [employer] Other 09-12-2022 11:15-0400 SaO2% (BldA) [Mass fraction] 92 % Carol Faye Other [employer] Other 09-12-2022 11:15-0400 Systolic blood pressure 143 mm[Hg] Carol Faye Other [employer] Other 07-18-2021 12:20-0400 Body height 172.72 cm Carol Faye Other [employer] Other 07-18-2021 12:20-0400 Body mass index (BMI) [Ratio] 51.69 kg/m2 Carol Mckinney Other [employer] Other 07-18-2021 12:20-0400 Body temperature 96.9 [degF] Carol Mckinney Other [employer] Other 07-18-2021 12:20-0400 Body weight 154.22 kg Carol Mckinney Other [employer] Other 07-18-2021 12:20-0400 Respiratory rate 16 /min Carol Mckinney Other [employer] Other 07-18-2021 12:20-0400 SaO2% (BldA) [Mass fraction] 98 % Carol Mckinney Other [employer] Other Encounters Encounter Date Encounter Type Care Provider Facility Start: 05-25-2023 End: 05-25-2023 ambulatory MEÑO GOMEZ Not Available Start: 05-18-2023 End: 05-18-2023 ambulatory [facility] Start: 05-18-2023 End: 05-18-2023 Office outpatient visit 15 minutes [facility] HEALTH RECORDS TECHNOLOGY TEACHER-CLINICAL TECHNICIAN Work Phone: [facility] Comment on above: Other eczema (Primar y Dx); Bipolar disorder, current episode mixed, mild ([facility]) Start: 05-18-2023 End: 05-19-2023 ambulatory MEÑO GOMEZ Not Available Start: 04-23-2023 End: 04-23-2023 ambulatory [facility] Work Phone: Start: 04-23-2023 End: 02-16-2024 Patient encounter procedure [facility] Work Phone: Start: 03-24-2023 End: 03-24-2023 ambulatory HARLAN Cate [facility] Start: 03-16-2023 End: 03-16-2023 ambulatory FERCHO Brown [facility] Start: 03-16-2023 End: 03-16-2023 Postop follow up visit related to original px Fercho Ham MD Work Phone: [facility] Comment on above: 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) Start: 02-22-2023 End: 02-25-2023 Evaluation and management of inpatient CLAYTON HAWLEY [facility] Start: 02-22-2023 End: 02-25-2023 Evaluation and management of inpatient Clayton Hawley MD Work Phone: [facility] Avi Bird Comment on above: CSF leak (Primary Dx ); Post-op pain Start: 02-17-2023 End: 02-18-2023 ambulatory [facility] Start: 02-17-2023 End: 02-18-2023 Encounter for other preprocedural examination [facility] Start: 02-02-2023 End: 02-03-2023 ambulatory [facility] Start: 01-18-2023 End: 01-19-2023 ambulatory CLAYTON HAWLEY [facility] Start: 01-18-2023 End: 01-18-2023 Office outpatient new 30 minutes Clayton Hawley MD Work Phone: [facility] Jan Comment on above: CSF leak (Primary Dx ) Start: 01-07-2023 End: 01-07-2023 ambulatory FERCHO HAM [facility] Start: 12-24-2022 End: 12-24-[address] [facility] Start: 12-17-2022 ambulatory [facility] Facility :[facility] Start: 10-08-2022 End: 10-08-2022 ambulatory Harmnoy Khan Other [employer] Other Start: 10-08-2022 Office outpatient vi sit 25 minutes Harmony Khan [facility] Start: 09-12-2022 Office outpatient vi sit 15 minutes Carol Mckinney [facility] Start: 09-12-2022 End: 09-12-2022 ambulatory DO Harlan Jenniferlong Work Phone: [facility] [employer] Other Start: 09-12-2022 End: 09-12-2022 Patient encounter procedure DO Harlan Rodriguezmaxineng Work Phone: [facility] Work Phone: Start: 07-28-2022 Registered Recurring DO Harlan Rodriguezlong Work Phone: [facility] [employer] Start: 12-12-2021 End: 12-13-[address] HARLAN ALMEIDA Facility:[facility] Start: 11-24-2021 End: 11-25-[address] OLAF ANGUIANO Facility:[facility] Start: 07-18-2021 End: 07-18-2021 ambulatory Carol Mckinney Other [facility] [employer] Other Start: 07-18-2021 Office outpatient vi sit 15 minutes Carol Mckinney [facility] Start: 01-01-[address] MAC ALTAMIRANO Facili ty:[facility]1 Procedures Date Procedure Procedure Detail Performing Clinician Start: 05-18-2023 Adult depression scr eening assessment Brandon Sotelo HEALTH RECORDS TECHNOLOGY TEACHER-CLINICAL TECHNICIAN Work Phone: Start: 02-25-2023 DISCHARGE PATIENT TREVOR LAS BAMBAKIDIS Start: 02-25-2023 Magnesium [Mass/volu me] in Serum or Plasma CLAYTON BAMBAKIDIS Start: 02-25-2023 RENAL FUNCTION PANEL NI CHOLAS BAMBAKIDIS Start: 02-25-2023 Renal function panel Ni sharlene Barrios MD Work Phone: Start: 02-24-2023 Glucose [Mass/volume ] in Serum or Plasma CLAYTON BAMBAKIDIS Start: 02-24-2023 Glucose quantitative blood xcpt reagent strip Fercho Ham MD Work Phone: Start: 02-24-2023 Glucose [Mass/volume ] in Serum or Plasma CLAYTON BAMBAKIDIS Start: 02-24-2023 Glucose quantitative blood xcpt reagent strip Fercho Ham MD Work Phone: Start: 02-24-2023 Glucose [Mass/volume ] in Serum or Plasma CLAYTON BAMBAKIDIS Start: 02-24-2023 Glucose quantitative blood xcpt reagent strip Fercho Ham MD Work Phone: Start: 02-23-2023 TRANSFER PATIENT TO NEW UNIT CLAYTON BAMBAKIDIS Start: 02-23-2023 TRANSFER PATIENT TO NEW UNIT CLAYTON BAMBAKIDIS Start: 02-23-2023 CBC W Auto Different ial panel - Blood CLAYTON BAMBAKIDIS Start: 02-23-2023 Magnesium [Mass/volu me] in Serum or Plasma CLAYTON BAMBAKIDIS Start: 02-23-2023 RENAL FUNCTION PANEL NI UNIQUE BAMCONIDIS Start: 02-23-2023 Renal function panel Ad german Powell MD Work Phone: Start: 02-22-2023 FULL CODE CLAYTON B NIKKIDIS Start: 02-22-2023 WEIGH PATIENT CLAYTON BAMCONIDIS Start: 02-22-2023 CT HEAD WO IV CONTRAST CLAYTON BAMBAKIDIS Start: 02-22-2023 Ct head/brain w/o co ntrast material Katherine Polanco MD Work Phone: Start: 02-22-2023 ADMIT TO INPATIENT TRAV OLAS BAMBAKIDIS Start: 02-22-2023 Glucose [Mass/volume ] in Serum or Plasma CLAYTON BAMBAKIDIS Start: 02-22-2023 End: 02-22-2023 Rescj/exc les itprl fossa space apex idrl w/rpr Clayton Hawley MD Work Phone: Start: 02-22-2023 Glucose quantitative blood xcpt reagent strip Clayton Hawley MD Work Phone: Start: 02-17-2023 Bacteria identified in Urine by Culture CLAYTON HAWLEY Start: 02-17-2023 Basic metabolic 2000 panel - Serum or Plasma CLAYTON HAWLEY Start: 02-17-2023 CBC panel - Blood by Automated count CLAYTON HAWLEY Start: 02-17-2023 COAGULATION SCREEN TRAV LIVEMADIE JUWAN Start: 02-17-2023 EXTRA URINE GALLAGHER TUBE N PROSPERMICHELLE HAWLEY Start: 02-17-2023 Hemoglobin A1c/Hemoglobin.total in Blood CLAYTON HAWLEY Start: 02-17-2023 MICROSCOPIC ONLY, URINE CLAYTON HAWLEY Start: 02-17-2023 STAPHYLOCOCCUS AUREU S/MRSA COLONIZATION, CULTURE CLAYTON HAWLEY Start: 02-17-2023 TYPE AND SCREEN LUCERO S JUWAN Start: 02-17-2023 URINALYSIS WITH REFL EX MICROSCOPIC AND CULTURE CLAYTON HAWLEY Start: 01-07-2023 Follow-up visit Follow-up FERCHO HAM Start: 09-12-2022 X-ray of left foot DO Robert Adamsng Work Phone: Start: 12-16-2021 Mammography Brandon Ca stillo HEALTH RECORDS TECHNOLOGY TEACHER-CLINICAL TECHNICIAN Work Phone: Plan of Treatment Date Care Activity Detail Author Start: 04-25-2030 DTaP,Tdap and Td Vaccines (2 - Tdap) DTaP,Tdap and Td Vaccines ([facility] - Tdap[facility] Start: 04-25-2030 DTaP/Tdap/Td Vaccine s (2 - Tdap) DTaP/Tdap/Td Vaccines (2 - Tdap) [facility] Start: 01-18-2025 Screening for malign ant neoplasm of colon Colonoscopy [facility] Comment on above: Postponed from 03/29 (Not Indicated) Start: 05-17-2024 Adult BMI Follow Up Plan [facility] Start: 05-17-2024 Adult BMI Screening [facility] Start: 05-17-2024 Depression Screening [facility] Start: 05-17-2024 Tobacco Screening [facility] Start: 08-01-2023 Diabetic foot examination [facility] Start: 05-19-2023 Hemoglobin A1c measurement Diabetes: Hemoglobin A1C [facility] Start: 05-06-2023 End: 05-06-2023 Patient encounter procedure 05/06/2023 2:00 PM EST Office Visit [facility] [employer] [facility] [address] [facility] [address] [place] [phone] Fercho Ham MD [address] [facility] [address] [place] [address] [facility] [employer] [facility] 1 Start: 03-11-2023 End: 03-11-2023 Patient encounter procedure 03/11/2023 3:15 PM EST Office Visit [facility] [employer] [facility] [address] [facility] [address] [place] [phone] Fercho Ham MD [address] [facility] [address] [place] [address] [facility] [employer] [facility] 1 Start: 12-16-2022 Screening for malign ant neoplasm of breast [facility] Start: 2004 Screening for malign ant neoplasm of breast Mammogram [facility] Start: 1985 Screening for malign ant neoplasm of cervix [facility] Start: 1983 Urine screening for protein Diabetes: Urine Protein Screening [facility] Start: 1982 Diabetes mellitus screening Diabetes Screening [facility] Start: 1982 Hepatitis C screening Hepatitis C Sc [facility] Start: 1974 Diabetic foot examination Diabetes: Foot Exam [facility] Start: 1974 Glaucoma screening Diabetes: R etinopathy Screening [facility] Start: 1970 Pneumococcal Vaccine : Pediatrics (0 to 5 Years) and At-Risk Patients (6 to 64 Years) (1 - PCV) Pneumococcal Vaccine: Pediatrics (0 to 5 Years) and At-Risk Patients (6 to 64 Years) (1 - PCV) [facility] Start: 1965 MMR Vaccines (1 of 1 - Standard series) MMR Vaccines (1 of 1 - Standard series) [facility] Start: 1964 COVID-19 Vaccine (#1) COVID-19 Vacci ne (#1) [facility] Start: 1964 Glaucoma screening Diabetic Op hthalmology Exam [facility] Start: 1964 HIV screening HIV Screening [facility] Start: 1964 Lipid panel Lipid Panel [facility] Start: 1964 Medicare Annual Wellness Visit Medicare Annual Wellness Visit (AWV) [facility] Start: 1964 Screening for malign ant neoplasm of colon [facility] Electrocardiogram, 12-lead PRN ACS symptoms Electrocardiogram, 12-lead PRN ACS symptoms ECG Routine As needed until discontinued starting 02/22/2023 [facility] Work Phone: Comment on above: As needed until disc ontinued starting 02/22/2023 End: 02-22-2023 Incentive spirometry Instruct Incentive spirometry Instruct Respiratory Care Routine Once for 1 Occurrences starting 02/22/2023 until 02/22/2023 [facility] Service [facility] Work Phone: Comment on above: Once for 1 Occurrenc es starting 02/22/2023 until 02/22/2023 Immunizations Immunization Date Immunization Notes Care Provider Fa cili 12-11-2022 influenza, injectabl e, quadrivalent, preservative free Clayton Hawley MD Work Phone: [facility] 12-08-2021 influenza virus vaccine, unspecified formulation Brandon Sotelo APRN-CLINICAL TECHNICIAN Work Phone: [facility] 12-08-2021 influenza, injectabl e, quadrivalent, preservative free Clayton Hawley MD Work Phone: [facility] 02-07-2021 zoster vaccine recombinant Clayton Hawley MD Work Phone: [facility] 12-03-2020 influenza, injectabl e, quadrivalent, preservative free Clayton Hawley MD Work Phone: [facility] 12-03-2020 zoster vaccine recombinant Clayton Hawley MD Work Phone: [facility] 04-25-2020 diphtheria, tetanus toxoids and pertussis vaccine Clayton Hawley MD Work Phone: [facility] 01-12-2020 influenza, injectabl e, quadrivalent, preservative free Clayton Hawley MD Work Phone: [facility] 10-08-2018 influenza, injectabl e, quadrivalent, preservative free Clayton Hawley MD Work Phone: [facility] 12-25-2017 influenza, injectabl e, quadrivalent, preservative free Clayton Hawley MD Work Phone: [facility] 03-18-2017 Influenza, injectabl e, Madin Berlin Canine Kidney, preservative free, quadrivalent Clayton Hawley MD Work Phone: [facility] 07-21-2002 hepatitis B vaccine, adult dosage Clayton Hawley MD Work Phone: [facility] Work Phone: 03-03-2002 hepatitis B vaccine, adult dosage Clayton Hawley MD Work Phone: [facility] Work Phone: 01-13-2002 hepatitis B vaccine, adult dosage Clayton Hawley MD Work Phone: [facility] Payers Date Payer Category Payer Medicare [id number] 2022 [facility] [id number] 2021 Medicare [id number] 1965 Unknown [id number] [id number] 1965 Unknown [id number] 2.16.840.1.129626.3.579.2.593 1965 Unknown [id number] 2.16.840.1.803130.3.579.2.593 1965 Unknown [id number] 2.16.840.1.051302.3.579.2.593 1965 Unknown [id number] 2.16.840.1.619329.3.579.2.593 1964 Unknown [id number] 2.16.840.1.380380.3.579.2.1247 1964 Unknown [id number] 2.16.840.1.087429.3.579.2.1247 1964 Unknown [id number] 2.16.840.1.122676.3.579.2.1245 1964 Unknown [id number] 2.16.840.1.357835.3.579.2.1245 1964 Unknown [id number] 2.16.840.1.860945.3.579.2.1245 1964 Unknown [id number] 2.16.840.1.389154.3.579.2.1245 1964 Unknown [id number] 2.16.840.1.650972.3.579.2.1244 1964 Unknown [id number] 2.16.840.1.637363.3.579.2.1286 1964 Unknown [id number] 2.16.840.1.235514.3.579.2.1286 1964 Unknown [id number] 2.16.840.1.097719.3.579.2.1259 1964 Unknown [id number] 2.16.840.1.992846.3.579.2.1259 1964 Unknown [id number] 2.16.840.1.555347.3.579.2.1259 1960 Medicare [id number] 2. [id number] 1959 Medicare [id number] Unknown [id number] ODJFS [facility] MEDCA[facility] [id number] Unknown [facility] [id number] Unknown [id number] 2.16.840.1.133657.3.579.2.531 Unknown [id number] 2.16.840.1.553663.3.579.2.531 Social History Date Type Detail Facility Unknown if ever smoked [employer] Other Start: 01-07-2023 End: 02-11-2023 Sex Assigned At [facility] Start: 07-18-2020 End: 12-03-2021 Tobacco smoking status NHIS Never smoked tobacco (finding) [facility] Start: 1965 Sex Assigned At Female F [facility] Start: 12-03-2021 End: 12-24-2022 Tobacco use and exposure Smokeless tobacco non-user [facility] Work Phone: Start: 01-07-2023 End: 02-11-2023 History of Social function [facility] Start: 1965 Sex Assigned At Not on file [facility] Work Phone: Start: 01-08-2023 End: 03-16-2023 Exposure to SARS-CoV-2 (event) Not sure [facility] Start: 02-22-2023 End: 03-16-2023 Alcohol intake Current drinker of alcohol (finding) [facility] Work Phone: How often to you hav e a drink containing alcohol? Never [facility] How many standard drinks containing alcohol do you have on a typical day? Patient does not drink [facility] Work Phone: Start: 02-17-2023 Alcohol Comment [facility] [place] Work Phone: Start: 05-18-2023 Alcohol intake Lifetime non-d giles (finding) [employer] Has the [employer], or [employer] threatened to shut off services in your home in past 12Mo No [employer] Are you now , , , , never or living with a partner? [facility] Do you feel stress - tense, restless, nervous, or anxious, or unable to sleep at night because your mind is troubled all the time - these days [OSQ] Rather much [employer] Medical Equipment Procedure Code Equipment Code Equipment Origin al Text Equipment Identifier Dates Graft Matrix, Du ral, Duragen Plus 2x2 () - [id number] Start: 02-22-2023 Cross Pin, Axs Self-Tap, 1.5 X 4mm - [id number] Start: 02-22-2023 Plate, 2h 10mm B ar Ultra Low Profile - [id number] Start: 02-22-2023 Clinical Notes 07-18-2021 to 05-18-2023 Brandon Sotelo, [employer] TECHNOLOGY TEACHER-CLINICAL TECHNICIAN - 05/18/2023 1:40 PM Fahad Ham MD - 03/16/2023 1:00 PM Walter Hunter, PT - 02/25/2023 12:55 PM Lala Powell MD - 02/25/2023 5:20 AM EST Note Date & Type Note Facility 05-18-2023 History of Presen t illness Narrative Images from the original note were not included. [address] [place] [id number] SUBJECTIVE: Patient ID: Ya Womack is a 58 y.o. female. Chief Complaint Patient presents with Rash X 2 months Presents today for scattered eczema rash on her arms and legs. Alleviating method include moisturizing lotion. No relief. She states having gastric sleeve surgery last month. Is doing very well. Has lost almost 50 pounds. Rash This is a recurrent problem. The current episode started more than 1 month ago. The problem has been waxing and waning since onset. Location: bilateral arms and legs. The rash is characterized by dryness, redness and scaling. She was exposed to nothing. Pertinent negatives include no fever or shortness of breath. The following portions of the patient's history were reviewed and updated as appropriate: allergies, current medications, past family history, past medical history, past social history, past surgical history and problem list. Past Surgical History: Procedure Laterality Date CHOLECYSTECTOMY COLONOSCOPY 05/02/2014 normal HYSTERECTOMY KNEE SURGERY 3 LEFT KNEE SURGERY AND 1 RIGHT KNEE SURGERY. SLEEVE GASTROPLASTY 04/13/2023 SPINE SURGERY Right 02/22/2023 leaking spinal fluid Past Medical History: Diagnosis Date Diabetes mellitus type 2, controlled ([facility]) Encounter for gastric sleeve procedure 04/13/2023 Dr. Doherty History of tremor Immunization History Administered Date(s) Administered DTP 04/25/2020 Hepatitis B 01/13/2002, 03/03/2002, 07/21/2002 Influenza, Injectable, Mdck, Preservative Free, Quad 03/18/2017 Influenza, Injectable, quadrivalent (PF) 12/25/2017, 10/08/2018, 01/12/2020, 12/03/2020, 12/08/2021, 12/11/2022 Influenza, Unspecified 12/08/2021 Zoster Vaccine Recombinant 12/03/2020, 02/07/2021 REVIEW OF SYSTEMS: Review of Systems Constitutional: Negative for chills and fever. HENT: Negative. Eyes: Negative for visual disturbance. Respiratory: Negative for chest tightness and shortness of breath. Cardiovascular: Negative for chest pain and palpitations. Gastrointestinal: Negative. Endocrine: Negative. Genitourinary: Negative for menstrual problem and pelvic pain. Musculoskeletal: Negative. Skin: Positive for rash. Allergic/Immunologic: Negative. Neurological: Negative for syncope and facial asymmetry. Hematological: Does not bruise/bleed easily. Psychiatric/Behavioral: Negative. PHYSICAL EXAMINATION: Vitals: 05/18/23 1311 BP: 120/80 BP Site: Left Arm BP Postition: Sitting Pulse: 74 Temp: 36.3 C (97.3 F) TempSrc: Tympanic SpO2: 95% Weight: 126.5 kg (278 lb 14.4 oz) Height: 170.2 cm (5' 7 ) Patient noted to have elevated BMI and the following intervention(s) were applied: encouragement to exercise. Physical Exam Vitals and nursing note reviewed. Constitutional: General: She is not in acute distress. Appearance: She is well-developed. She is not diaphoretic. HENT: Head: Normocephalic and atraumatic. Right Ear: Tympanic membrane and external ear normal. Left Ear: Tympanic membrane and external ear normal. Nose: Nose normal. Mouth/Throat: Mouth: Mucous membranes are moist. Pharynx: No oropharyngeal exudate. Eyes: General: Right eye: No discharge. Left eye: No discharge. Conjunctiva/sclera: Conjunctivae normal. Pupils: Pupils are equal, round, and reactive to light. Neck: Thyroid: No thyromegaly. Vascular: No JVD. Cardiovascular: Rate and Rhythm: Normal rate and regular rhythm. Heart sounds: Normal heart sounds. No murmur heard. No friction rub. No gallop. Pulmonary: Effort: Pulmonary effort is normal. Breath sounds: Normal breath sounds. Abdominal: General: Bowel sounds are normal. There is no distension. Palpations: Abdomen is soft. There is no mass. Tenderness: There is no abdominal tenderness. Musculoskeletal: General: Normal range of motion. Cervical back: Normal range of motion and neck supple. Lymphadenopathy: Cervical: No cervical adenopathy. Skin: General: Skin is warm and dry. Capillary Refill: Capillary refill takes less than 2 seconds. Findings: Rash present. Neurological: Mental Status: She is alert and oriented to person, place, and time. Deep Tendon Reflexes: Reflexes are normal and symmetric. Psychiatric: Mood and Affect: Mood normal. Behavior: Behavior normal. Thought Content: Thought content normal. Judgment: Judgment normal. ASSESSMENT/PLAN: Ya was seen today for rash. Diagnoses and all orders for this visit: Other eczema - betamethasone valerate (VALISONE) 0.1 % ointment; Apply 1 Application topically in the morning and 1 Application before bedtime. Bipolar disorder, current episode mixed, mild (CMS-HCC) -Bipolar disorder is treated psychiatry. Depression: Not at risk (05/18/2023) PHQ-2 PHQ-2 Score: 0 She feels her moods are stable. Continue hydroxyzine, duloxetine, and lamotrigine as directed by psychiatry. Body mass index is 43.68 kg/m . Patient noted to have elevated BMI and the following intervention(s) were applied: Discussed current weight today. Consider healthy food choices, portion control. Avoid sugary beverages and high concentrated sweets. Routine exercise regimen encouraged. ALL QUESTIONS ANSWERED Total time spent was 25 minutes: Preparing to see the patient (e.g., review of tests) Obtaining and/or reviewing separately obtained history Performing a medically appropriate examination and/or evaluation Counseling and educating the patient/family/caregiver Ordering medications, tests, or procedures Follow-up: Next scheduled Sooner if needed VENUS Quigley 05/18/23 1415 documented in this encounter [facility] 03-16-2023 History of Presen t illness Narrative Date of surgery: 02/22/2023 Chief complaint: CSF leak middle fossa craniotomy SUBJECTIVE: Ya Womack is a 57 y.o. female s/p middle fossa craniotomy for CSF leak repair. she denies otorrhea or rhinorrhea. She denies constitutional symptoms of fatigue, weakness, weight loss or gain, fevers, night sweats. OBJECTIVE: The patient is well-developed, well-nourished in no acute distress with a good ability to communicate without hearing aids. She has Normal facial strength and symmetry and is alert and oriented to time, person, and place with appropriate mood and affect. Vitals: 03/16/23 1258 Temp: 35.7 C (96.2 F) Weight: 146 kg (321 lb 6.4 oz) Height: 1.676 m (5' 6 ) Incision clean/dry/intact, stitches removed Tympanic membrane intact. No apparent effusion ASSESSMENT and PLAN: Ya Womack is a 57 y.o. female s/p middle fossa craniotomy for repair of CSF leak. She is doing well 1. Follow-up in 2 months with audiogram. Fercho Ham MD documented in this encounter [facility] Work Phone: 02-25-2023 History of Presen t illness Narrative Physical Therapy Therapy Communication Note Patient Name: Ya Womack Today's Date: 02/25/2023 Discipline: Physical Therapy Missed Visit Reason: Missed Visit Reason: (Pt declining, states she feels at baseline & indep without PT needs; anticipated dc home today.) Missed Time: Attempt 1220 02/25/23 at 12:55 PM - Magali Hunter, PT Ya Womack is a 57 y.o. female on day 3 of admission presenting with CSF leak. Subjective NAEON, no PILLAI Objective Physical Exam A&Ox3 Face symmetric Tongue midline Fcx4 5/5 SILT Incision c/d/I LD site c/d/I Last Recorded Vitals Blood pressure 132/70, pulse 72, temperature 35.6 C (96.1 F), temperature source Temporal, resp. rate 16, height 1.676 m (5' 6 ), weight (!) 152 kg (334 lb 14.1 oz), SpO2 96 %. 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 Rest per primary team Maida Powell MD Ya Womack is a 57 y.o. female on day 2 of admission presenting with CSF leak. Subjective NAEON Objective Physical Exam A&Ox3 Face symmetric Tongue midline Fcx4 5/5 SILT Incision c/d/I Last Recorded Vitals Blood pressure 136/75, pulse 69, temperature 37.5 C (99.5 F), temperature source Temporal, resp. rate 16, height 1.676 m (5' 6 ), weight (!) 152 kg (334 lb 14.1 oz), SpO2 92 %. Intake/Output last 3 Shifts: I/O last 3 completed shifts: In: 4131.3 (27.2 mL/kg) [P.O.:1180; I.V.:51.3 (0.3 mL/kg); IV Piggyback:2900] Out: 1930 (12.7 mL/kg) [Urine:1580 (0.3 mL/kg/hr)] Weight: 151.9 kg Relevant Results This patient has a urinary catheter Reason for the urinary catheter remaining today? 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 I personally obtained the rodriguez and critical portions of the history and physical exam or was physically present for rodriguez and critical portions performed by the resident/fellow. I reviewed the resident/fellow's documentation and discussed the patient with the resident/fellow. I agree with the resident/fellow's medical decision making as documented in the note. ENT DAILY PROGRESS NOTE Name: Ya Womack : 1965 Subjective No acute events overnight Transferred to floor this morning LD in place and draining No leakage from ear or nose Pain controlled, tolerating diet Objective Temp: [36 C (96.8 F)-37.2 C (99 F)] 36.1 C (97 F) Heart Rate: [64-93] 69 Resp: [13-29] 14 BP: (87-158)/(43-112) 158/112 Arterial Line BP 1: (92-113)/(44-64) 108/60 Gen: Alert, oriented, no acute distress Resp: Breathing comfortably on supplemental oxygen, no stridor Head: Atraumatic, normocephalic, right post auricular incision is CDI, juliann dressing in place with minimal drainage, HB 1/6, Granados to the right Oral Cavity: MMM, Ears: right post auricular incision is c/d/I, no drainage, no otorhrea Nose: External nose midline, no drainage Neck: good neck ROM Drains LD in place Intake/Output Summary (Last 24 hours) at 02/24/2023 0643 Last data filed at 02/24/2023 0500 Gross per 24 hour Intake 2791.25 ml Output 505 ml Net 2286.25 ml Labs Assessment Ya Womack is a 57 y.o. female who underwent R MCF approach to CSF leak repair on 02/22/[address] Ham and Dr. Hawley . Plan: - Neuro: LD per NSGY, anticipate 3 days of drainage, Aox3, tylenol, oxy for pain, add robaxin if needed, continue home buspar, cymbalta, keppra, lamictal, ropinirole, trazodone - Resp: wean O2 as able, OOTB - CV: vitals q4 hours, continue home statin, amlodipine, lisinopril/HCTZ - GI: regular diet, HLIV - FEN: monitor electrolytes, stop fluids - : discontinued weiner 02/23, voiding spontaneously - ID: Ancef while LD in place - Heme: RAY - Endo: RAY - Embolic PPx: SQH r/s 02/24, SCDs while in bed - Dispo: transferred to floor 02/24 D/w Dr. Ham Residents to contact during the week between 6am to 5pm below regarding patient related issues for specific attendings. Please reach out via [employer]. If you are not able to reach a resident in a timely fashion or if any urgent issue, please page. Camryn Barrios MD (Martin Stanton Semaan, [place]) - pager [phone] Dayami Velasco MD (Martin Stanton Semaan, [place]) Liberty Maldonado MD (Bethanie Chen, [place]) - pager [phone] For the following providers - ([place], [place], Lara) - please [facility] the resident writing the note or page the residents above. On weekends of after 5pm, please page [phone]. Associated attestation - Fercho Ham MD - 02/24/2023 4:54 PM EST I saw and evaluated the patient. I personally obtained the rodriguez and critical portions of the history and physical exam or was physically present for rodriguez and critical portions performed by the resident/fellow. I reviewed the resident/fellow's documentation and discussed the patient with the resident/fellow. I agree with the resident/fellow's medical decision making as documented in the note. Occupational Therapy Evaluation/Treatment Patient Name: Ya Womack : 1965 Today's Date: 02/23/23 Time Calculation Start Time: 910 Stop Time: 939 Time Calculation (min): 29 min Assessment: Prognosis: Good Barriers to Discharge: None Evaluation/Treatment Tolerance: Patient tolerated treatment well Medical Staff Made Aware: Yes End of Session Communication: Bedside nurse End of Session Patient Position: Bed, 3 rail up, Alarm off, not on at start of session OT Assessment Results: Decreased ADL status, Decreased IADLs Prognosis: Good Barriers to Discharge: None Evaluation/Treatment Tolerance: Patient tolerated treatment well Medical Staff Made Aware: Yes Strengths: Attitude of self, Housing layout, Support and attitude of living partners Plan: Treatment Interventions: ADL retraining, Functional transfer training, Endurance training OT Frequency: 2 times per week OT Discharge Recommendations: No OT needed after discharge (will follow pt while in hospital to ensure safety and IND with ADLs/IADLs upon discharge) OT Recommended Transfer Status: (CGA) OT - OK to Discharge: Yes Treatment Interventions: ADL retraining, Functional transfer training, Endurance training Subjective Current Problem: 1. CSF leak General: OT Received On: 02/23/23 General Reason for Referral: R tegment defect; 02/22 s/p R MCF craniotomy, repair of tegmen defect, intra-op lumbar drain Past Medical History Relevant to Rehab: HTN, DM, R CSF otorhea Family/Caregiver Present: Yes Caregiver Feedback: present and supportive during session Prior to Session Communication: Bedside nurse Patient Position Received: Bed, 3 rail up, Alarm off, not on at start of session General Comment: Pt tolerated LB dressing with SBA-CGA and transfers and mobility in room with CGA, progressed to SBA. Precautions: Hearing/Visual Limitations: WFL but slightly [facility] Medical Precautions: Fall precautions Precautions Comment: SBP < 160 Vital Signs: Heart Rate: 93 (post 90) Resp: (!) 29 (post 20) SpO2: 96 % (post 97) BP: 127/63 (post 124/60) MAP (mmHg): 81 (during MAP 68-70s, post 79) Pain: Pain Assessment Pain Assessment: 0-10 Pain Score: 5 - Moderate pain Pain Type: Surgical pain Pain Location: Head Objective Cognition: Overall Cognitive Status: Within Functional Limits Orientation Level: Oriented X4 Attention: Within Functional Limits Problem Solving: Within Functional Limits Safety/Judgement: Within Functional Limits Insight: Within function limits Impulsive: Within functional limits Processing Speed: Within funtional limits Confusion Assessment Method (CAM) Acute Onset and Fluctuating Course (1A): No Rich Agitation Sedation Scale Rich Agitation Sedation Scale (RASS): Alert and calm Home Living: Type of Home: House Lives With: Spouse ( who is home and available to assist as needed, 4 grandkids ages 12, 7, 3, and 1) Home Adaptive Equipment: Walker rolling or standard, Cane Home Layout: Two level (bedroom, full bathroom, and laundry on 1st floor) Home Access: Stairs to enter with rails Entrance Stairs-Rails: Both Entrance Stairs-Number of Steps: 4 Bathroom Shower/Tub: Tub/shower unit Bathroom Toilet: Standard Prior Function: Level of [place]: Independent with ADLs and functional transfers, Independent with homemaking with ambulation ADL Assistance: Independent Homemaking Assistance: Independent Ambulatory Assistance: Independent Vocational: On disability Leisure: enjoys quilting Hand Dominance: Right Prior Function Comments: (-) drive, provides transportation as needed ADL: Eating Assistance: Independent Grooming Assistance: Independent Bathing Assistance: Other (Comment) (CGA-SBA) UE Dressing Assistance: Independent LE Dressing Assistance: (CGA-SBA) Toileting Assistance with Device: Stand by LE Dressing LE Dressing: Yes Pants Level of Assistance: Contact guard Sock Level of Assistance: Close supervision LE Dressing Where Assessed: Edge of bed LE Dressing Comments: Pt donned socks seated EOB with supervision. Pt able to don underwear at EOB with SBA seated EOB and stood with CGA-SBA to don over hips with cues for safety with lines. Activity Tolerance: Endurance: Endurance does not limit participation in activity Early Mobility/Exercise Safety Screen: Proceed with mobilization - No exclusion criteria met Functional Standing Tolerance: Bed Mobility/Transfers: Bed Mobility Bed Mobility: Yes Bed Mobility 1 Bed Mobility 1: Supine to sitting, Sitting to supine Level of Assistance 1: Close supervision Transfers Transfer: Yes Transfer 1 Technique 1: Sit to stand, Stand to sit Transfer Device 1: (no AD) Transfer Level of Assistance 1: Contact guard Trials/Comments 1: cues for hand placement Transfers 2 Technique 2: Sit to stand, Stand to sit Transfer Device 2: (no AD) Transfer Level of Assistance 2: Close supervision Trials/Comments 2: cues for hand placement Sitting Balance: Static Sitting Balance Static Sitting-Level of Assistance: Distant supervision Dynamic Sitting Balance Dynamic Sitting-Comments: SBA Standing Balance: Static Standing Balance Static Standing-Level of Assistance: (CGA-SBA, no AD) Dynamic Standing Balance Dynamic Standing-Comments: CGA-SBA, no AD Modalities: IADL's: Splinting: Casting: Therapy/Activity: Therapeutic Activity Therapeutic Activity Performed: Yes Therapeutic Activity 1: Pt completed forward/backward and side steps in bed x 3 trials with CGA, progressing to SBA without use of AD. Vision:Vision - Basic Assessment Current Vision: Wears glasses all the time and Vision - Complex Assessment Vision Comments: denies and changes in vision, tracking WFL Sensation: Light Touch: No apparent deficits Perception: Inattention/Neglect: Appears intact Coordination: Movements are Fluid and Coordinated: Yes Hand Function: Hand Function Gross Grasp: Functional Coordination: Functional Extremities: RUE RUE : (R UE AROM WFL, strength grossly 5/5), LUE LUE: (L UE AROM WFL, strength grossly 4/5), RLE RLE : (R LE AROM WFL, strength >/= 3+/5), and LLE LLE : (L LE AROM WFL, strength >/= 3+/5) Outcome Measures: [facility] Daily Activity Putting on and taking off regular lower body clothing: A little Bathing (including washing, rinsing, drying): A little Putting on and taking off regular upper body clothing: None Toileting, which includes using toilet, bedpan or urinal: A little Taking care of personal grooming such as brushing teeth: None Eating Meals: None Daily Activity - Total Score: 21 and OT Adult Other Outcome Measures Short Blessed Test (SBT): 07/03, demonstrating normal cognition (0-4 = normal). Pt made one error for delayed recall and required 1 promt for stating months of the year in reverse order. Education Documentation Precautions, taught by Stephanie Gloria OT at 02/23/2023 11:57 AM. Learner: Patient Readiness: Acceptance Method: Explanation, Demonstration Response: Verbalizes Understanding, Demonstrated Understanding ADL Training, taught by Stephanie Gloria OT at 02/23/2023 11:57 AM. Learner: Patient Readiness: Acceptance Method: Explanation, Demonstration Response: Verbalizes Understanding, Demonstrated Understanding Education Comments No comments found. OP EDUCATION: Goals: Encounter Problems Encounter Problems (Active) ADLs Patient will perform LB bathing with Mod I. Start: 02/23/23 Expected End: 03/09/23 Patient with complete lower body dressing with Mod I. Start: 02/23/23 Expected End: 03/09/23 Patient will complete toileting including hygiene clothing management/hygiene with Mod I. Start: 02/23/23 Expected End: 03/09/23 Pt will complete simulated IADL/homemaking tasks including laundry, cooking, cleaning, item retrieval/transport with Mod I. Start: 02/23/23 Expected End: 03/09/23 MOBILITY Patient will perform Functional mobility household and community distances with Mod I without Lob and with good safety awareness. Start: 02/23/23 Expected End: 03/09/23 TRANSFERS Patient will complete functional transfers from various surfaces with Mod I. Start: 02/23/23 Expected End: 03/09/23 Ya Womack is a 57 y.o. female on day 1 of admission presenting with CSF leak. Subjective NAEON Objective Physical Exam A&Ox3 Face symmetric Tongue midline Fcx4 5/5 SILT Incision c/d/I Last Recorded Vitals Blood pressure 111/68, pulse 69, temperature 36.5 C (97.7 F), temperature source Temporal, resp. rate 14, height 1.676 m (5' 6 ), weight 148 kg (326 lb), SpO2 95 %. Intake/Output last 3 Shifts: I/O last 3 completed shifts: In: 4091.3 (27.7 mL/kg) [P.O.:1040; I.V.:1051.3 (7.1 mL/kg); IV Piggyback:1999] Out: 2195 (14.8 mL/kg) [Urine:1994 (0.4 mL/kg/hr)] Weight: 147.9 kg Relevant Results This patient has a urinary catheter Reason for the urinary catheter remaining today? 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 I personally obtained the rodriguez and critical portions of the history and physical exam or was physically present for rodriguez and critical portions performed by the resident/fellow. I reviewed the resident/fellow's documentation and discussed the patient with the resident/fellow. I agree with the resident/fellow's medical decision making as documented in the note. Physical Therapy Physical Therapy Evaluation & Treatment Patient Name: Ya Womack Today's Date: 02/23/2023 Time Calculation Start Time: 1013 Stop Time: 1042 Time Calculation (min): 29 min Assessment/Plan PT Assessment PT Assessment Results: Decreased endurance, Decreased mobility, Pain Rehab Prognosis: Excellent Evaluation/Treatment Tolerance: Patient tolerated treatment well Strengths: Support and attitude of living partners End of Session Communication: Bedside nurse Assessment Comment: Patient to benefit from ongoing PT services at this time to continue addressing the above limitations and to prepare patient for safe and timely return to prior level of function. End of Session Patient Position: Up in chair, Alarm off, not on at start of session IP OR SWING BED PT PLAN Inpatient or Swing Bed: Inpatient PT Plan Treatment/Interventions: Bed mobility, Transfer training, Gait training, Stair training, Balance training, Neuromuscular re-education, Strengthening, Endurance training, Therapeutic exercise, Therapeutic activity, Home exercise program, Positioning, Postural re-education PT Plan: Skilled PT PT Frequency: 2 times per week PT Discharge Recommendations: No PT needed after discharge Equipment Recommended upon Discharge: (n/a) PT Recommended Transfer Status: Assist x1 PT - OK to Discharge: Yes (PT evaluation has been completed and discharge recommendations have been made.) Subjective General Visit Information: General Reason for Referral: R tegment defect; 02/22 s/p R MCF craniotomy, repair of tegmen defect, intra-op lumbar drain Past Medical History Relevant to Rehab: HTN, DM, R CSF otorhea Missed Visit: No Missed Visit Reason: (n/a) Family/Caregiver Present: Yes Caregiver Feedback: Pt's spouse present in room Co-Treatment: (n/a) Prior to Session Communication: Bedside nurse Patient Position Received: Bed, 3 rail up, Alarm off, not on at start of session Home Living: Home Living Type of Home: House Lives With: Spouse (2 daughters + 4 grandchildren) Home Adaptive Equipment: Walker rolling or standard, Cane Home Layout: Two level Home Access: Stairs to enter with rails Entrance Stairs-Rails: Both Entrance Stairs-Number of Steps: 4 Prior Level of Function: Prior Function Per Pt/Caregiver Report Level of [place]: Independent with ADLs and functional transfers, Independent with homemaking with ambulation ADL Assistance: Independent Homemaking Assistance: Independent Ambulatory Assistance: Independent Precautions: Precautions Hearing/Visual Limitations: WFL Medical Precautions: Fall precautions Precautions Comment: SBP < 160. Vital Signs: Vital Signs Heart Rate: 86 (110 during, 74 end) SpO2: 98 % (97-98%) BP: 120/65 (133/75 (93) during, 129/61 (79) dnx) MAP (mmHg): 82 BP Method: Automatic Objective Pain: Pain Assessment Pain Assessment: 0-10 Pain Score: 5 - Moderate pain (7/10 end) Pain Location: Head (jaw) Pain Interventions: (mobility & rest) Response to Interventions: pain worsened after mobility. RN notified. Cognition: Cognition Overall Cognitive Status: Within Functional Limits Orientation Level: Oriented X4 Processing Speed: Within funtional limits General Assessments: Activity Tolerance Endurance: Endurance does not limit participation in activity Early Mobility/Exercise Safety Screen: Proceed with mobilization - No exclusion criteria met Sensation Light Touch: No apparent deficits Perception Inattention/Neglect: Appears intact Coordination Movements are Fluid and Coordinated: Yes Postural Control Postural Control: Within Functional Limits Head Control: WNL Trunk Control: WFL Righting Reactions: Intact Protective Responses: Intact Static Sitting Balance Static Sitting-Balance Support: Bilateral upper extremity supported, Feet supported Static Sitting-Level of Assistance: Close supervision Dynamic Sitting Balance Dynamic Sitting-Balance Support: Bilateral upper extremity supported, Feet supported Dynamic Sitting-Comments: close sup Static Standing Balance Static Standing-Balance Support: No upper extremity supported Static Standing-Level of Assistance: Contact guard Dynamic Standing Balance Dynamic Standing-Balance Support: No upper extremity supported Dynamic Standing-Comments: CGA Functional Assessments: Bed Mobility Bed Mobility: Yes Bed Mobility 1 Bed Mobility 1: Supine to sitting Level of Assistance 1: Close supervision Bed Mobility Comments 1: HOB elevated, cues for pacing. Transfers Transfer: Yes Transfer 1 Technique 1: Sit to stand, Stand to sit Transfer Device 1: (no device) Transfer Level of Assistance 1: Contact guard Trials/Comments 1: 2x from low surfaces. Cues for proper hand placement. Ambulation/Gait Training Ambulation/Gait Training Performed: Yes Ambulation/Gait Training 1 Surface 1: Level tile Device 1: No device Assistance 1: Contact guard Quality of Gait 1: (able to stop suddenly when cued and turn 180 degrees without LOB. Gait mechanics grossly WFL.) Comments/Distance (ft) 1: 100 ft Extremity/Trunk Assessments: RUE RUE : (ROM and strength grossly WFL based on observation) LUE LUE: (ROM and strength grossly WFL based on observation) RLE RLE : Exceptions to WFL (ROM WFL) Strength RLE R Hip Flexion: 5/5 R Knee Flexion: 5/5 R Knee Extension: 5/5 R Ankle Dorsiflexion: 5/5 R Ankle Plantar Flexion: 5/5 LLE LLE : Exceptions to WFL (ROM WFL) Strength LLE L Hip Flexion: 5/5 L Knee Flexion: 5/5 L Knee Extension: 5/5 L Ankle Dorsiflexion: 5/5 L Ankle Plantar Flexion: 5/5 Treatments: Therapeutic Exercise Therapeutic Exercise Performed: Yes Therapeutic Exercise Activity 1: Verbal/tactile cues for proper form: B ankle pumps 20x, B alternating marches in sitting 10x, B alternating marches in standing 5x Outcome Measures: [facility] Basic Mobility Turning from your back to your side while in a flat bed without using bedrails: A little Moving from lying on your back to sitting on the side of a flat bed without using bedrails: A little Moving to and from bed to chair (including a wheelchair): A little Standing up from a chair using your arms (e.g. wheelchair or bedside chair): A little To walk in hospital room: A little Climbing 3-5 steps with railing: A little Basic Mobility - Total Score: 18 FSS-ICU Ambulation: Walks >/ or equal to 50 feet with any assistance x1 Rolling: Supervision or set-up only Sitting: Supervision or set-up only Transfer [id number]: Supervision or set-up only Transfer [id number]: Supervision or set-up only Total Score: 22 ICU Mobility Screen Early Mobility/Exercise Safety Screen: Proceed with mobilization - No exclusion criteria met E = Exercise and Early Mobility Early Mobility/Exercise Safety Screen: Proceed with mobilization - No exclusion criteria met Current Activity: Ambulating in vega Documentation of an Acceptable Level of Exercise/Mobilization Performed: Walk in vega [place] Sitting Balance: Steady, safe Arises: Able, uses arms to help Attempts to Arise: Able to arise, one attempt Immediate Standing Balance (First 5 Seconds): Steady without walker or other support Standing Balance: Narrow stance without support Nudged: Steady without walker or other support Eyes Closed: Steady Turned 360 Degrees: Steadiness: Steady Turned 360 Degrees: Continuity of Steps: Continuous Sitting Down: Uses arms or not a smooth motion Balance Score: 14 Initiation of Gait: No hesitancy Step Height: R Swing Foot: Right foot complete clears floor Step Length: R Swing Foot: Passes left stance foot Step Height: L Swing Foot: Left foot complete clears floor Step Length: L Swing Foot: Passes right stance foot Step Symmetry: Right and left step appear equal Step Continuity: Steps appear continuous Path: Straight without walking aid Trunk: No sway, no flexion, no use of arms, no walking aid Walking Time: Heels almost touching while walking Gait Score: 12 Total Score: 26 Encounter Problems Encounter Problems (Active) Balance Patient will score >22/30 points on the Functional Gait Assessment to indicate decreased risk of falling. Start: 02/23/23 Expected End: 03/09/23 Mobility Patient will ambulate at least 400 ft. with </= close sup and LRD to improve tolerance of community distances. Start: 02/23/23 Expected End: 03/09/23 Patient will ascend and descend >/= 4 steps with railing and </= close sup to facilitate safe navigation of stairs in the home. Start: 02/23/23 Expected End: 03/09/23 Patient will perform introductory home exercise program as prescribed without cues. Start: 02/23/23 Expected End: 03/09/23 Transfers Patient will perform sit to stand and stand to sit transfers with </= close sup and LRD to increase functional strength. Start: 02/23/23 Expected End: 03/09/23 Education Documentation Precautions, taught by Wandy Abreu, PT at 02/23/2023 11:15 AM. Learner: Patient Readiness: Acceptance Method: Explanation Response: Verbalizes Understanding Mobility Training, taught by Wandy Abreu PT at 02/23/2023 11:15 AM. Learner: Patient Readiness: Acceptance Method: Explanation Response: Verbalizes Understanding Education Comments No comments found. ENT DAILY PROGRESS NOTE Name: Ya Womack : 1965 Subjective No acute events overnight No concerns reported by nursing In NSU, post op CT with post op changes LD in place and draining No leakage from ear or nose Pain controlled, tolerating diet Objective Temp: [36 C (96.8 F)-37.2 C (99 F)] 36 C (96.8 F) Heart Rate: [65-91] 80 Resp: [12-18] 18 BP: (135-152)/(71-80) 140/80 Arterial Line BP 1: (100-179)/(46-74) 112/49 Gen: Alert, oriented, no acute distress Resp: Breathing comfortably on supplemental oxygen, no stridor Head: Atraumatic, normocephalic, right post auricular incision is CDI, juliann dressing in place, HB 1/6, Granados to the right Oral Cavity: MMM, Ears: right post auricular incision is c/d/I, no drainage, no otorhrea Nose: External nose midline, no drainage Neck: good neck ROM Drains LD in place Intake/Output Summary (Last 24 hours) at 02/23/2023 0725 Last data filed at 02/23/2023 0700 Gross per 24 hour Intake 4091.25 ml Output 2255 ml Net 1836.25 ml Labs Assessment Ya Womack is a 57 y.o. female who underwent R MCF approach to CSF leak repair on 02/22/[address] Ham and Dr. Hawley . Plan: - Neuro: LD per NSGY, anticipate 3 days of drainage, Aox3, tylenol, oxy for pain, add robaxin if needed, continue home buspar, cymbalta, keppra, lamictal, ropinirole, trazodone - Resp: wean O2 as able, OOTB - CV: vitals q4 hours, continue home statin, amlodipine, lisinopril/HCTZ - GI: regular diet, HLIV - FEN: monitor electrolytes, stop fluids - : discontinue weiner 02/23 - ID: Ancef while LD in place - Heme: RAY - Endo: RAY - Embolic PPx: SQH r/s 02/24, SCDs while in bed - Dispo: transfer to [place] [id number] D/w Dr. Ham Residents to contact during the week between 6am to 5pm below regarding patient related issues for specific attendings. Please reach out via [employer]. If you are not able to reach a resident in a timely fashion or if any urgent issue, please page. Camryn Barrios MD (Martin Stanton Semaan, [place]) - pager [phone] Dayami Velasco MD (Martin Stanton Semaan, [place]) Liberty Maldonado MD (Bethanie Chen, [place]) - pager [phone] For the following providers - ([place], [place], [place]) - please [facility] the resident writing the note or page the residents above. On weekends of after 5pm, please page [phone]. Associated attestation - Fercho Ham MD - 02/23/2023 7:34 AM EST I saw and evaluated the patient. I personally obtained the rodriguez and critical portions of the history and physical exam or was physically present for rodriguez and critical portions performed by the resident/fellow. I reviewed the resident/fellow's documentation and discussed the patient with the resident/fellow. I agree with the resident/fellow's medical decision making as documented in the note. Pharmacy Medication History Review Ya Womack is a 57 y.o. female admitted for CSF leak. Pharmacy reviewed the patient's xjlqn-pd-epqcvebyy medications and allergies for accuracy. The list below reflects the updated FLOOR AND WALL APPLIER LIQUID list. Comments regarding how patient may be taking medications differently can be found in the Admit Orders Activity Prior to Admission Medications Prescriptions Last Dose Informant Patient Reported? DULoxetine (Cymbalta) [address] capsule 02/21/2023 Yes Sig: Take 2 capsules (120 mg) by mouth once daily. amLODIPine (Norvasc) 10 mg tablet 02/21/2023 Yes Sig: Take 1 tablet (10 mg) by mouth once daily. busPIRone (Buspar) 10 mg tablet Past Week Yes Sig: Take 1 tablet (10 mg) by mouth 2 times a day. chlorhexidine (Hibiclens) 4 % external liquid No Sig: Apply topically 2 times a day for 5 days. chlorhexidine (Peridex) 0.12 % solution No Sig: Swish and spit 15 mL night before surgery and morning of surgery hydrOXYzine pamoate (Vistaril) 50 mg capsule Past Week Yes Sig: Take 1 capsule (50 mg) by mouth 3 times a day as needed for itching. lamoTRIgine (LaMICtal) 100 mg tablet 02/21/2023 Yes Sig: Take 1 tablet (100 mg) by mouth 2 times a day. lisinopriL-hydrochlorothiazide 20-25 mg tablet 02/21/2023 Yes Sig: Take 1 tablet by mouth once daily. lovastatin (Mevacor) 40 mg tablet 02/21/2023 Yes Sig: Take 1 tablet (40 mg) by mouth once daily at bedtime. metFORMIN, OSM, (Fortamet) 500 mg 24 hr tablet 02/21/2023 Yes Sig: Take 1 tablet (500 mg) by mouth once daily in the evening. Take with meals. Do not crush, chew, or split. primidone (Mysoline) 50 mg tablet 02/21/2023 Yes Sig: Take 1 tablet by mouth in am and 3 tablets in pm rOPINIRole (Requip) 1 mg tablet 02/21/2023 Yes Si tablet (1 mg). Take 1 tablet by mouth 1 am and 2 pm traZODone (Desyrel) 100 mg tablet Past Week Yes Sig: Take 1 tablet (100 mg) by mouth once daily at bedtime. Facility-Administered Medications: None The list below reflects the updated allergy list. Please review each documented allergy for additional clarification and justification. Allergies Reviewed by Thomas Myers PharmD on 02/22/2023 No Known Allergies Patient declines M2B at discharge. Pharmacy has been updated to [facility]. Sources used to complete the med history include out patient fill history, OARRS, and patient interview. Patient was a good historian, confirmed all the meds they have been taking along with time of last dose. Below are additional concerns with the patient's FLOOR AND WALL APPLIER LIQUID list. -FACUNDO Myers PharmD Transitions of Care Pharmacist Meds Ambulatory and Retail Services Please reach out via Secure Chat for questions, or if no response call [employer] or [place] [employer] documented in this encounter [facility] Work Phone: 02-25-2023 Hospital course Narrative Discharge Diagnosis CSF leak Issues Requiring Follow-Up none Test Results Pending At Discharge Pending Labs No current pending labs. 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 Hawley and Dr. Ham. She was monitored in the NSU for 1 day and had no concerning findings on post op CTH. She worked with PT/OT and had no homegoing needs. A LD was kept in place for 3 days. It was removed and there was no concerns for post operative CSF leak. Pain was controlled, she was tolerating a PO diet, ambulating independently, voiding. She was discharge home in stable condition with follow up arranged. Pertinent Physical Exam At Time of Discharge Physical Exam Gen: Alert, oriented, no acute distress Resp: Breathing comfortably on supplemental oxygen, no stridor Head: Atraumatic, normocephalic, right post auricular incision is CDI, juliann dressing removed,, no leakage, HB 1/6, Granados to the right Oral Cavity: MMM, Ears: right post auricular incision is c/d/I, no drainage, no otorhrea Nose: External nose midline, no drainage Neck: good neck ROM Home Medications Medication List START taking these medications levETIRAcetam 500 mg tablet; Commonly known as: Keppra; Take 1 tablet (500 mg) by mouth 2 times a day for 7 days. Senexon-S 8.6-50 mg tablet; Generic drug: sennosides-docusate sodium; Take 1 tablet by mouth once daily for 7 days. traMADol 50 mg tablet; Commonly known as: Ultram; Take 1 tablet (50 mg) by mouth every 6 hours if needed for severe pain (7 - 10) for up to 3 days. CHANGE how you take these medications chlorhexidine 0.12 % solution; Commonly known as: Peridex; Swish and spit 15 mL night before surgery and morning of surgery; What changed: Another medication with the same name was removed. Continue taking this medication, and follow the directions you see here. CONTINUE taking these medications amLODIPine 10 mg tablet; Commonly known as: Norvasc busPIRone 10 mg tablet; Commonly known as: Buspar DULoxetine [address] capsule; Commonly known as: Cymbalta hydrOXYzine pamoate 50 mg capsule; Commonly known as: Vistaril lamoTRIgine 100 mg tablet; Commonly known as: LaMICtal lisinopriL-hydrochlorothiazide 20-25 mg tablet lovastatin 40 mg tablet; Commonly known as: Mevacor metFORMIN (OSM) 500 mg 24 hr tablet; Commonly known as: Fortamet Mysoline 50 mg tablet; Generic drug: primidone rOPINIRole 1 mg tablet; Commonly known as: Requip traZODone 100 mg tablet; Commonly known as: Desyrel Outpatient Follow-Up Future Appointments Date Time Provider Department Center 03/11/2023 3:15 PM Fercho Ham MD [id number] [place] Camryn Barrios MD Associated attestation - Fercho Ham MD - 02/25/2023 1:42 PM EST I saw and evaluated the patient. I personally obtained the rodriguez and critical portions of the history and physical exam or was physically present for rodriguez and critical portions performed by the resident/fellow. I reviewed the resident/fellow's documentation and discussed the patient with the resident/fellow. I agree with the resident/fellow's medical decision making as documented in the note. documented in this encounter [facility] Work Phone: 02-24-2023 Hospital Discharg e instructions Camryn Barrios MD - 02/24/2023 11:28 AM EST Images from the original note were not included. Most ear surgeries should have a 2-4 week postoperative appointment. Please be sure to call the doctor's office and make a follow-up appointment, if you don't already have it. Once the dressing is off, and if you have an incision behind your ear with stitches, clean the incision twice daily with soap and water and apply Vaseline or antibiotic ointment after cleaning. If you have paper strips or surgical glue over the incision, Do not apply anything behind the ear. Bloody drainage from the ear is common. Call the office if discharge from the ear last longer than 21 days or develops an odor or color. Water should be kept out of the ear until it is healed. You may shower the day after surgery, if you keep your head dry. The hair may be shampooed 2 days following surgery, providing water is not allowed into the ear canal. A cotton ball covered with Vaseline should be used in the ear whenever you are around water. Bloody discharge from incision area may occur during the first 10 days following surgery. If this persists or increases, please call the office. A full sensation with popping sounds may be noticed during the healing process. DO NOT BLOW YOUR NOSE FOR THREE WEEKS FOLLOWING SURGERY. If you sneeze, do so with your mouth open for three weeks following surgery. Do not use a straw to drink beverages for 3 weeks following surgery. Do not use Q-Tips or put anything in the canal, until approved by your doctor. Do not be concerned regarding your hearing for a period of six to eight weeks following surgery. Your hearing will be evaluated at this time; until then, your hearing may sound muffled and your voice may echo in your ear during speech. Minor swelling of the face on the same side of the surgery is not uncommon. Small bruising near the eye or mouth is not uncommon from the facial nerve monitor. Dizziness, ringing in the ear, and taste disturbance after surgery are common. Call if severe. You might notice pain when chewing, please use soft diet for 2 weeks if you experience this. No lifting (more than 10 lbs) or straining until follow up. You will be discharged on pain medications and usually antibiotics. You may resume your routine medications as directed, unless you have been instructed otherwise by the prescribing healthcare provider. Should you experience any difficulty upon returning home, or if you simply have questions, please contact us. As your surgeons, we are most familiar with your operation and postoperative procedures. We are accessible by telephone 24 hours a day, 7 days a week. Once we have assessed your situation, we will be prepared to make specific suggestions for your care. If you have any clear drainage from your incision, ear, or nose, OR if you get significant swelling at your incision please call Dr. Ham's office immediately or present to the ED. documented in this encounter [facility] Work Phone: 02-23-2023 Plan of care note The patient's goals for the shift include getting out of bed. The clinical goals for the shift include stable neuro exam Over the shift, the patient did not make progress toward the following goals. Barriers to progression include pain. Recommendations to address these barriers include medication. Problem: Skin Goal: Prevent/manage excess moisture Outcome: Progressing Goal: Prevent/minimize sheer/friction injuries Outcome: Progressing Goal: Promote/optimize nutrition Outcome: Progressing [facility] 02-23-2023 Miscellaneous Notes The patient's goals for the shift include getting out of bed. The clinical goals for the shift include stable neuro exam Over the shift, the patient did not make progress toward the following goals. Barriers to progression include pain. Recommendations to address these barriers include medication. Problem: Skin Goal: Prevent/manage excess moisture Outcome: Progressing Goal: Prevent/minimize sheer/friction injuries Outcome: Progressing Goal: Promote/optimize nutrition Outcome: Progressing Problem: Skin Goal: Prevent/manage excess moisture Outcome: Progressing Goal: Prevent/minimize sheer/friction injuries Outcome: Progressing Goal: Promote/optimize nutrition Outcome: Progressing The patient's goals for the shift include no pain The clinical goals for the shift include stable neuro exam The patient's goals for the shift include improved pain The clinical goals for the shift include stable neuro exam 57 YO F h/o HTN, DM, R CSF otorhea, 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 Hawley and Dr. Ham. She was monitored in the NSU for 1 day and had no concerning findings on post op CTH. She worked with PT/OT and had no homegoing needs. A LD was kept in place for 3 days. It was removed and there was no concerns for post operative CSF leak. Pain was controlled, she was tolerating a PO diet, ambulating independently, voiding. She was discharge home in stable condition with follow up arranged. Craniotomy Middle Fossa with mastodectomy (R) Operative Note Date: 02/22/2023 OR Location: [facility] OR Name: Ya Womack, : 1965, Age: 57 y.o., , Sex: female Diagnosis Pre-op Diagnosis * CSF leak [G96.00] Post-op Diagnosis * CSF leak [G96.00] Procedures Craniotomy Middle Fossa with mastodectomy 04283 - TN RESCJ/EXC LES ITPRL FOSSA SPACE APEX IDRL W/RPR Craniotomy Middle Fossa with mastoidectomy 46428 - TN RESCJ/EXC LES ITPRL FOSSA SPACE APEX IDRL W/RPR TN STRTCTC CPTR ASSTD PX CRANIAL INTRADURAL [53431] TN MICROSURG TQS REQ USE OPERATING MICROSCOPE [14981] TN INFRATEMPO MID CRANIAL FOSSA W/WO DCOMPR&/MOBI [78648] TN IONM 1 ON 1 IN OR W/ATTENDANCE EACH 15 MINUTES [35336] Surgeons Panel 1: * Clayton Hawley - Primary Panel 2: * Fercho Ham - Primary Resident/Fellow/Other Zipper Setter Lockstitch: Surgeon(s) and Role: Panel 1: * Katherine Polanco MD - Resident - Assisting Panel 2: * Leslye Villasenor MD - Resident - Assisting Procedure Summary Anesthesia: General ASA: III Anesthesia Staff: Anesthesiologist: Nish Ferguson MD PhD C-AA: SAGAR Rivera Capp; SAGAR Ibrahim Estimated Blood Loss: mL Intra-op Medications: Medication Name Total Dose lidocaine-epinephrine (Xylocaine W/EPI) 0.5 %-1:200,000 injection 10 mL thrombin (recombinant) (Recothrom) topical solution 10,000 Units gelatin absorbable (Gelfoam) 100 sponge 1 each polymyxin B 500,000 Units in sodium chloride 0.9 % 1,000 mL irrigation Cannot be calculated HYDROmorphone (Dilaudid) injection 0.2 mg 0.2 mg oxyCODONE (Roxicodone) immediate release tablet 10 mg 10 mg Anesthesia Record Intraprocedure I/O Totals Intake LR 500.00 mL Phenylephrine Drip 0.00 mL The total shown is the total volume documented since Anesthesia Start was filed. lactated Ringer's 1000.00 mL Total Intake 1500 mL Output Urine 215 mL Total Output 215 mL Net Net Volume 1285 mL Specimen: No specimens collected Staff: Operator Vacuum: Monae Jean RN Relief Operator Vacuum: Amanda Benavides RN Relief Scrub: Katie Jennings RN Scrub Person: Andrew Vides; Anisa Strong Drains and/or Catheters: Urethral Catheter Non-latex 16 Fr. (Active) Lumbar Drain (Active) Status 10 mL/hr 02/22/23 1300 CSF Color Clear 02/22/23 1300 Site Description Healing 02/22/23 1337 Dressing Status Clean;Dry 02/22/23 1337 CSF Output (mL) 10 mL 02/22/23 1300 [REMOVED] Closed/Suction Drain Inferior;Midline Back (Removed) Tourniquet Times: Implants: Implants Type Name Action Serial No. Graft GRAFT MATRIX, DURAL, DURAGEN PLUS 2X2 (/PK) - [id number] Implanted Neuro Interventional Implant CROSS PIN, AXS SELF-TAP, 1.5 X 4MM - [id number] Implanted Screw PLATE, YY 6H 8MM BAR ULTRA LOW PROFILE - [id number] Implanted Screw PLATE, 2H 10MM BAR ULTRA LOW PROFILE - [id number] Implanted Findings: Indications: Ya Womack is an 57 y.o. female who is having surgery for CSF leak [G96.00]. The patient was seen in the preoperative area. The risks, benefits, complications, treatment options, non-operative alternatives, expected recovery and outcomes were discussed with the patient. The possibilities of reaction to medication, pulmonary aspiration, injury to surrounding structures, bleeding, recurrent infection, the need for additional procedures, failure to diagnose a condition, and creating a complication requiring transfusion or operation were discussed with the patient. The patient concurred with the proposed plan, giving informed consent. The site of surgery was properly noted/marked if necessary per policy. The patient has been actively warmed in preoperative area. Preoperative antibiotics Venous thrombosis prophylaxis Procedure Details: Patient was placed supine right-sided postauricular skin incision performed by Dr. Ham was dictated separately in his note a craniotomy middle cranial fossa was performed high-speed drill exposing middle cranial fossa skull base floor with encephalocele CSF leak following repair for CSF for skull base surgery this was reconstructed with locally harvested bone synthetic dural sealant using microdissection following repair of the encephalocele the bone was replaced using titanium plates and screws and the closure performed by Dr. Roshni Henry dictated separately also thank you Complications: Disposition: Condition: Additional Details: Attending Attestation: Clayton Hawley Craniotomy Middle Fossa with mastodectomy (R) Operative Note Date: 02/22/2023 OR Location: [facility] OR Name: Ya Womack, : 1965, Age: 57 y.o., , Sex: female Diagnosis Pre-op Diagnosis * CSF leak [G96.00] Post-op Diagnosis * CSF leak [G96.00] Procedures Craniotomy Middle Fossa with mastodectomy 89789 - TN RESCJ/EXC LES ITPRL FOSSA SPACE APEX IDRL W/RPR Craniotomy Middle Fossa with mastoidectomy 93251 - TN RESCJ/EXC LES ITPRL FOSSA SPACE APEX IDRL W/RPR TN STRTCTC CPTR ASSTD PX CRANIAL INTRADURAL [77379] TN MICROSURG TQS REQ USE OPERATING MICROSCOPE [96524] TN INFRATEMPO MID CRANIAL FOSSA W/WO DCOMPR&/MOBI [08431] TN IONM 1 ON 1 IN OR W/ATTENDANCE EACH 15 MINUTES [36240] Surgeons Panel 1: * Clayton Hawley - Primary Panel 2: * Fercho Ham - Primary Resident/Fellow/Other Zipper Setter Lockstitch: Surgeon(s) and Role: Panel 1: * Katherine Polanco MD - Resident - Assisting Panel 2: * Leslye Villasenor MD - Resident - Assisting Procedure Summary Anesthesia: General ASA: III Anesthesia Staff: Anesthesiologist: Nish Ferguson MD PhD C-AA: SAGAR Rivera Capp; SAGAR Ibrahim Estimated Blood Loss: mL Intra-op Medications: Medication Name Total Dose lidocaine-epinephrine (Xylocaine W/EPI) 0.5 %-1:200,000 injection 10 mL thrombin (recombinant) (Recothrom) topical solution 10,000 Units gelatin absorbable (Gelfoam) 100 sponge 1 each polymyxin B 500,000 Units in sodium chloride 0.9 % 1,000 mL irrigation Cannot be calculated HYDROmorphone (Dilaudid) injection 0.2 mg 0.2 mg oxyCODONE (Roxicodone) immediate release tablet 10 mg 10 mg Anesthesia Record Intraprocedure I/O Totals Intake LR 500.00 mL Phenylephrine Drip 0.00 mL The total shown is the total volume documented since Anesthesia Start was filed. lactated Ringer's 1000.00 mL Total Intake 1500 mL Output Urine 215 mL Total Output 215 mL Net Net Volume 1285 mL Specimen: No specimens collected Staff: Operator Vacuum: Monae Jean RN Relief Operator Vacuum: Amanda Benavides RN Relief Scrub: Katie Jennings RN Scrub Person: Gusjustin Vides; Anisa Strong Drains and/or Catheters: Urethral Catheter Non-latex 16 Fr. (Active) Lumbar Drain (Active) Status 10 mL/hr 02/22/23 1300 CSF Color Clear 02/22/23 1300 Site Description Healing 02/22/23 1337 Dressing Status Clean;Dry 02/22/23 1337 CSF Output (mL) 10 mL 02/22/23 1300 [REMOVED] Closed/Suction Drain Inferior;Midline Back (Removed) Tourniquet Times: Implants: Implants Type Name Action Serial No. Graft GRAFT MATRIX, DURAL, DURAGEN PLUS 2X2 (1/PK) - [id number] Implanted Neuro Interventional Implant CROSS PIN, AXS SELF-TAP, 1.5 X 4MM - [id number] Implanted Screw PLATE, YY 6H 8MM BAR ULTRA LOW PROFILE - [id number] Implanted Screw PLATE, 2H 10MM BAR ULTRA LOW PROFILE - [id number] Implanted Findings: Indications: Ya Womack is an 57 y.o. female who is having surgery for CSF leak [G96.00]. The patient was seen in the preoperative area. The risks, benefits, complications, treatment options, non-operative alternatives, expected recovery and outcomes were discussed with the patient. The possibilities of reaction to medication, pulmonary aspiration, injury to surrounding structures, bleeding, recurrent infection, the need for additional procedures, failure to diagnose a condition, and creating a complication requiring transfusion or operation were discussed with the patient. The patient concurred with the proposed plan, giving informed consent. The site of surgery was properly noted/marked if necessary per policy. The patient has been actively warmed in preoperative area. Preoperative antibiotics Venous thrombosis prophylaxis Procedure Details: A lumbar drain catheter plug was also placed in the L3-4 interspace after induction of general anesthesia allowed to drain intermittently throughout the procedure and postoperatively for CSF diversion without complication using a needle catheter Complications: Disposition: Condition: Additional Details: Attending Attestation: Clayton Hawley Craniotomy Middle Fossa with mastodectomy (R) Operative Note Date: 02/22/2023 OR Location: [facility] OR Name: Ya Womack, : 1965, Age: 57 y.o., , Sex: female Diagnosis Pre-op Diagnosis * CSF leak [G96.00] * Tympanostomy tube status * Dehiscence of temporal bone Post-op Diagnosis * CSF leak [G96.00] * Tympanostomy tube status * 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 Craniotomy for repair of cerebrospinal fluid leak, including surgery for otorrhea, and temporal skull base encephalocele [94085-44] - Middle Fossa Approach for repair of tegmen encephalocele and CSF leak, Duraplasty - Right 2. Secondary repair of dural/cerebrospinal fluid leak [01700-08] - Right 3. Needle electromyography; cranial nerve supplied muscle(s), unilateral - Facial nerve. - Right 4. Microsurgical techniques, requiring use of operating microscope - Right 5. Right ear tube removal with underlay myringoplasty [92351] Surgeons Panel 1: * Clayton Hawley - Primary Panel 2: * Fercho Ham - Primary Resident/Fellow/Other Zipper Setter Lockstitch: Surgeon(s) and Role: Panel 1: * Katherine Polanco MD - Resident - Assisting Panel 2: * Leslye Villasenor MD - Resident - Assisting Procedure Summary Anesthesia: General ASA: III Anesthesia Staff: Anesthesiologist: Nish Ferguson MD PhD C-AA: SAGAR Rivera Capp; SAGAR Ibrahim Estimated Blood Loss: 25mL Intra-op Medications: Medication Name Total Dose lidocaine-epinephrine (Xylocaine W/EPI) 0.5 %-1:200,000 injection 10 mL thrombin (recombinant) (Recothrom) topical solution 10,000 Units gelatin absorbable (Gelfoam) 100 sponge 1 each polymyxin B 500,000 Units in sodium chloride 0.9 % 1,000 mL irrigation Cannot be calculated HYDROmorphone (Dilaudid) injection 0.2 mg 0.2 mg oxyCODONE (Roxicodone) immediate release tablet 10 mg 10 mg Anesthesia Record Intraprocedure I/O Totals Intake LR 500.00 mL Phenylephrine Drip 0.00 mL The total shown is the total volume documented since Anesthesia Start was filed. lactated Ringer's 1000.00 mL Total Intake 1500 mL Output Urine 215 mL Total Output 215 mL Net Net Volume 1285 mL Specimen: No specimens collected Staff: Operator Vacuum: Monae Jean RN Relief Operator Vacuum: Amanda Benavides RN Relief Scrub: Katie Jennings RN Scrub Person: Andrew Vides; Anisa Strong Drains and/or Catheters: Urethral Catheter Non-latex 16 Fr. (Active) Lumbar Drain (Active) Status 10 mL/hr 02/22/23 1300 CSF Color Clear 02/22/23 1300 Site Description Healing 02/22/23 1337 Dressing Status Clean;Dry 02/22/23 1337 CSF Output (mL) 10 mL 02/22/23 1300 [REMOVED] Closed/Suction Drain Inferior;Midline Back (Removed) Tourniquet Times: Implants: Implants Type Name Action Serial No. Graft GRAFT MATRIX, DURAL, DURAGEN PLUS 2X2 (/) - [id number] Implanted Neuro Interventional Implant CROSS PIN, AXS SELF-TAP, 1.5 X 4MM - [id number] Implanted Screw PLATE, YY 6H 8MM BAR ULTRA LOW PROFILE - [id number] Implanted Screw PLATE, 2H 10MM BAR ULTRA LOW PROFILE - [id number] Implanted Findings: 1. Lumbar drain placed by Neurosurgery team at start of case, rapid and high-flow CSF return upon intradural space entry. 2. Small tegmen defect medially with encephalocele, repaired in multilayered fashion with superficial temporalis fascia, bone flap, and duraseal by Dr. Hawley. 3. No passive stimulation of facial nerve throughout procedure; GSPN not identified during dissection. 4. Ear tube removed and myringoplasty completed via placement of superficial temporalis fascia medial to remnant perforation. Indications: Ya Womack is an 57 y.o. female who presented with CSF otorrhea due to tegmen dehiscence and suspected small encephalocele based on CT imaging. She had an ear tube in place with persistent clear leakage of fluid from the right ear, and testing of this fluid was positive for beta 2 transferrin. Due to the medial location of the skull base defect and no appreciable contact of the suspected encephalocele with the ossicles, a middle fossa craniotomy was recommended for repair of the skull base defect. The risks, indications, alternatives and complications were discussed with the patient. These included, but are not limited to deafness in the operated ear, vertigo, dizziness, imbalance, facial weakness or paralysis, change in sense of taste, remnant perforation of eardrum, pain, bleeding, infection, scarring, need for further surgery, persistent spinal fluid leak, meningitis, brain damage, brain abscess, stroke, seizures, and . The patient elected to proceed and surgical consent was signed and saved to the chart. Procedure Details: On completion of the appropriate preoperative surgical and anesthesiology evaluations, the patient was taken to the operating room and placed in the supine position. After induction of anesthesia, the patient was endotracheally intubated without difficulty. The ear was prepared appropriately for surgery. Bipolar needle electrodes were placed in the orbicularis eduarda and orbicularis oculi muscles, and the patient underwent continuous 7th nerve monitoring throughout the operation. Weiner catheter, arterial line, and IV access were all obtained and placed. A lumbar drain was then placed by Neurosurgery without complication. The patient was placed in supine position, padded, and secured properly. The bed was turned 180 degrees away from Anesthesia. A lazy-S incision was marked starting in the superior postauricular region, curving superiorly and anteriorly to access the middle fossa. The patient was prepped and draped in the usual sterile fashion. We began with an incision through the premarked lazy-S tracing. This was deepened just to the level of the loose areolar tissue over the temporalis muscle. A large piece of superficial temporalis fascia was harvested and set aside for later use. The temporalis muscle was then incised to make an anteriorly based muscle flap, which was retracted away. The zygomatic root was well-visualized at the anteroinferior aspect of our middle fossa craniotomy site exposure. We then performed a middle fossa craniotomy using a 3-cutting and 3-denise bur. The craniotomy measured approximately 3cm x 2.5cm and was centered over the zygomatic root. Under constant irrigation, the bone flap was outlined and deepened down to dura circumferentially, taking great care anteroinferiorly where the bone flap was thinnest. Once we had reached dura along all edges, a [place] 1 dissector was used to carefully elevate the bone flap off the underlying dura. Eventually the bone flap was removed and set aside for later use. There were no dural tears noted after completion of our craniotomy. Working with Neurosurgery, the dura was elevated from the middle fossa floor from posterior to anterior and lateral to medial. One small defect was uncovered medially, with evidence of a small herniating encephalocele. There was a small CSF leak noted during this dissection. The dura was elevated such that the entire defect was exposed with normal bone appearing around all edges of the defect. Next, Dr. Hawley performed the repair, using superficial temporalis fascia over the middle fossa floor. A thin piece of bone that had been carved from the craniotomy bone flap was then placed over the fascia. The entire repair site was filled with Duraseal. The dura and brain were then relaxed back over the skull base. The bone flap was replaced with 2 mesh plates. The temporalis muscle and incision were then closed in layers, closing the muscle with 2-0 vicryl, and the deep dermal layer with simple interrupted monocryl suture. The skin incision was then closed with a running locking prolene suture. A speculum was placed in the ear canal, which was inspected and intact. A previously placed PE tube was identified. The PE tube was removed and Gelfoam was placed into the perforation and into the middle ear space. Additional superficial temporalis fascia was placed under the drum in an underlay fascion. Gelfoam was then placed over the graft. At this stage, bactroban, telfa, and a Latimer dressing were then placed over the incision. This completed the procedure. The patient was then emerged from anesthesia and extubated without difficulty. The patient was eventually transported back to PACU in stable condition. There were no apparent complications. Following the procedure, Dr. Ham discussed the findings with the patient's family and answered all of their questions. Dr. Ham was present and participated in all portions of the procedure. Complications: None; patient tolerated the procedure well. Disposition: PACU - hemodynamically stable. Condition: stable Attending Attestation: Associated attestation - Fercho Ham MD - 02/22/2023 3:11 PM EST I was present during all critical and rodriguez portions of the procedure(s) and immediately available to furnish services the entire duration. See resident note for details. Date: 02/22/2023 OR Location: [facility] OR Name: Ya Womack, : 1965, Age: 57 y.o., , Sex: female Diagnosis Pre-op Diagnosis * CSF leak [G96.00] Post-op Diagnosis * CSF leak [G96.00] Procedures Craniotomy Middle Fossa with mastodectomy 85384 - TN RESCJ/EXC LES ITPRL FOSSA SPACE APEX IDRL W/RPR Craniotomy Middle Fossa with mastoidectomy 68948 - TN RESCJ/EXC LES ITPRL FOSSA SPACE APEX IDRL W/RPR TN STRTCTC CPTR ASSTD PX CRANIAL INTRADURAL [15117] TN MICROSURG TQS REQ USE OPERATING MICROSCOPE [91716] TN INFRATEMPO MID CRANIAL FOSSA W/WO DCOMPR&/MOBI [30562] TN IONM 1 ON 1 IN OR W/ATTENDANCE EACH 15 MINUTES [71542] Surgeons Panel 1: * Clayton Hawley - Primary Panel 2: * Fercho Ham - Primary Resident/Fellow/Other Zipper Setter Lockstitch: Surgeon(s) and Role: Panel 1: * Katherine Polanco MD - Resident - Assisting Panel 2: * Leslye Villasenor MD - Resident - Assisting Procedure Summary Anesthesia: General ASA: III Anesthesia Staff: Anesthesiologist: Nish Ferguson MD PhD C-AA: SAGAR Rivera Capp; SAGAR Ibrahim Estimated Blood Loss: 50mL Intra-op Medications: Medication Name Total Dose lidocaine-epinephrine (Xylocaine W/EPI) 0.5 %-1:200,000 injection 10 mL thrombin (recombinant) (Recothrom) topical solution 10,000 Units gelatin absorbable (Gelfoam) 100 sponge 1 each polymyxin B 500,000 Units in sodium chloride 0.9 % 1,000 mL irrigation Cannot be calculated Anesthesia Record Intraprocedure I/O Totals Intake Phenylephrine Drip 0.00 mL The total shown is the total volume documented since Anesthesia Start was filed. Total Intake 0 mL Output Urine 215 mL Total Output 215 mL Net Net Volume -215 mL Specimen: No specimens collected Staff: Operator Vacuum: Monae Jean RN Scrub Person: Andrew Vides; Anisa Strong Findings: good repair of CSF leak Complications: None; patient tolerated the procedure well. Disposition: PACU - hemodynamically stable. Condition: stable Specimens Collected: No specimens collected Attending Attestation: Clayton Hawley documented in this encounter [facility] Work Phone: 02-22-2023 Plan of care note Problem: Skin Goal: Prevent/manage excess moisture Outcome: Progressing Goal: Prevent/minimize sheer/friction injuries Outcome: Progressing Goal: Promote/optimize nutrition Outcome: Progressing The patient's goals for the shift include no pain The clinical goals for the shift include stable neuro exam [facility] 02-22-2023 Plan of care note The patient's goals for the shift include improved pain The clinical goals for the shift include stable neuro exam [facility] Work Phone: 02-22-2023 Hospital Note Formatting of t his note might be different from the original. 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 Hawley and Dr. Ham. She was monitored in the NSU for 1 day and had no concerning findings on post op CTH. She worked with PT/OT and had no homegoing needs. A LD was kept in place for 3 days. It was removed and there was no concerns for post operative CSF leak. Pain was controlled, she was tolerating a PO diet, ambulating independently, voiding. She was discharge home in stable condition with follow up arranged. [facility] Work Phone: 02-22-2023 Note Formatting of this n ote is different from the original. Craniotomy Middle Fossa with mastodectomy (R) Operative Note Date: 02/22/2023 OR Location: [facility] OR Name: Ya Womack, : 1965, Age: 57 y.o., , Sex: female Diagnosis Pre-op Diagnosis * CSF leak [G96.00] Post-op Diagnosis * CSF leak [G96.00] Procedures Craniotomy Middle Fossa with mastodectomy 58414 - TN RESCJ/EXC LES ITPRL FOSSA SPACE APEX IDRL W/RPR Craniotomy Middle Fossa with mastoidectomy 40615 - TN RESCJ/EXC LES ITPRL FOSSA SPACE APEX IDRL W/RPR TN STRTCTC CPTR ASSTD PX CRANIAL INTRADURAL [42089] TN MICROSURG TQS REQ USE OPERATING MICROSCOPE [36420] TN INFRATEMPO MID CRANIAL FOSSA W/WO DCOMPR&/MOBI [71879] TN IONM 1 ON 1 IN OR W/ATTENDANCE EACH 15 MINUTES [92862] Surgeons Panel 1: * Clayton Hawley - Primary Panel 2: * Fercho Ham - Primary Resident/Fellow/Other Zipper Setter Lockstitch: Surgeon(s) and Role: Panel 1: * Katherine Polanco MD - Resident - Assisting Panel 2: * Leslye Villasenor MD - Resident - Assisting Procedure Summary Anesthesia: General ASA: III Anesthesia Staff: Anesthesiologist: Nish Ferguson MD PhD C-AA: SAGAR Rivera Capp; SAGAR Ibrahim Estimated Blood Loss: mL Intra-op Medications: Medication Name Total Dose lidocaine-epinephrine (Xylocaine W/EPI) 0.5 %-1:200,000 injection 10 mL thrombin (recombinant) (Recothrom) topical solution 10,000 Units gelatin absorbable (Gelfoam) 100 sponge 1 each polymyxin B 500,000 Units in sodium chloride 0.9 % 1,000 mL irrigation Cannot be calculated HYDROmorphone (Dilaudid) injection 0.2 mg 0.2 mg oxyCODONE (Roxicodone) immediate release tablet 10 mg 10 mg Anesthesia Record Intraprocedure I/O Totals Intake LR 500.00 mL Phenylephrine Drip 0.00 mL The total shown is the total volume documented since Anesthesia Start was filed. lactated Ringer's 1000.00 mL Total Intake 1500 mL Output Urine 215 mL Total Output 215 mL Net Net Volume 1285 mL Specimen: No specimens collected Staff: Operator Vacuum: Monae Jean RN Relief Operator Vacuum: Amanda Benavides RN Relief Scrub: Katie Jennings RN Scrub Person: Andrew Vides; Anisa Strong Drains and/or Catheters: Urethral Catheter Non-latex 16 Fr. (Active) Lumbar Drain (Active) Status 10 mL/hr 02/22/23 1300 CSF Color Clear 02/22/23 1300 Site Description Healing 02/22/23 1337 Dressing Status Clean;Dry 02/22/23 1337 CSF Output (mL) 10 mL 02/22/23 1300 [REMOVED] Closed/Suction Drain Inferior;Midline Back (Removed) Tourniquet Times: Implants: Implants Type Name Action Serial No. Graft GRAFT MATRIX, DURAL, DURAGEN PLUS 2X2 (/PK) - [id number] Implanted Neuro Interventional Implant CROSS PIN, AXS SELF-TAP, 1.5 X 4MM - [id number] Implanted Screw PLATE, YY 6H 8MM BAR ULTRA LOW PROFILE - [id number] Implanted Screw PLATE, 2H 10MM BAR ULTRA LOW PROFILE - [id number] Implanted Findings: Indications: Ya Womack is an 57 y.o. female who is having surgery for CSF leak [G96.00]. The patient was seen in the preoperative area. The risks, benefits, complications, treatment options, non-operative alternatives, expected recovery and outcomes were discussed with the patient. The possibilities of reaction to medication, pulmonary aspiration, injury to surrounding structures, bleeding, recurrent infection, the need for additional procedures, failure to diagnose a condition, and creating a complication requiring transfusion or operation were discussed with the patient. The patient concurred with the proposed plan, giving informed consent. The site of surgery was properly noted/marked if necessary per policy. The patient has been actively warmed in preoperative area. Preoperative antibiotics Venous thrombosis prophylaxis Procedure Details: Patient was placed supine right-sided postauricular skin incision performed by Dr. Ham was dictated separately in his note a craniotomy middle cranial fossa was performed high-speed drill exposing middle cranial fossa skull base floor with encephalocele CSF leak following repair for CSF for skull base surgery this was reconstructed with locally harvested bone synthetic dural sealant using microdissection following repair of the encephalocele the bone was replaced using titanium plates and screws and the closure performed by Dr. Roshni Henry dictated separately also thank you Complications: Disposition: Condition: Additional Details: Attending Attestation: Clayton Hawley [facility] Work Phone: 02-22-2023 Note Formatting of this n ote is different from the original. Craniotomy Middle Fossa with mastodectomy (R) Operative Note Date: 02/22/2023 OR Location: [facility] OR Name: Ya Womack, : 1965, Age: 57 y.o., , Sex: female Diagnosis Pre-op Diagnosis * CSF leak [G96.00] Post-op Diagnosis * CSF leak [G96.00] Procedures Craniotomy Middle Fossa with mastodectomy 44674 - TN RESCJ/EXC LES ITPRL FOSSA SPACE APEX IDRL W/RPR Craniotomy Middle Fossa with mastoidectomy 54727 - TN RESCJ/EXC LES ITPRL FOSSA SPACE APEX IDRL W/RPR TN STRTCTC CPTR ASSTD PX CRANIAL INTRADURAL [85174] TN MICROSURG TQS REQ USE OPERATING MICROSCOPE [11252] TN INFRATEMPO MID CRANIAL FOSSA W/WO DCOMPR&/MOBI [62535] TN IONM 1 ON 1 IN OR W/ATTENDANCE EACH 15 MINUTES [10582] Surgeons Panel 1: * Clayton Hawley - Primary Panel 2: * Fercho Ham - Primary Resident/Fellow/Other Zipper Setter Lockstitch: Surgeon(s) and Role: Panel 1: * Katherine Polanco MD - Resident - Assisting Panel 2: * Leslye Villasenor MD - Resident - Assisting Procedure Summary Anesthesia: General ASA: III Anesthesia Staff: Anesthesiologist: Nish Ferguson MD PhD C-AA: SAGAR Rivera Capp; SAGAR Ibrahim Estimated Blood Loss: mL Intra-op Medications: Medication Name Total Dose lidocaine-epinephrine (Xylocaine W/EPI) 0.5 %-1:200,000 injection 10 mL thrombin (recombinant) (Recothrom) topical solution 10,000 Units gelatin absorbable (Gelfoam) 100 sponge 1 each polymyxin B 500,000 Units in sodium chloride 0.9 % 1,000 mL irrigation Cannot be calculated HYDROmorphone (Dilaudid) injection 0.2 mg 0.2 mg oxyCODONE (Roxicodone) immediate release tablet 10 mg 10 mg Anesthesia Record Intraprocedure I/O Totals Intake LR 500.00 mL Phenylephrine Drip 0.00 mL The total shown is the total volume documented since Anesthesia Start was filed. lactated Ringer's 1000.00 mL Total Intake 1500 mL Output Urine 215 mL Total Output 215 mL Net Net Volume 1285 mL Specimen: No specimens collected Staff: Operator Vacuum: Monae Jean RN Relief Operator Vacuum: Amanda Benavides RN Relief Scrub: Katie Jennings RN Scrub Person: Andrew Strong Drains and/or Catheters: Urethral Catheter Non-latex 16 Fr. (Active) Lumbar Drain (Active) Status 10 mL/hr 02/22/23 1300 CSF Color Clear 02/22/23 1300 Site Description Healing 02/22/23 1337 Dressing Status Clean;Dry 02/22/23 1337 CSF Output (mL) 10 mL 02/22/23 1300 [REMOVED] Closed/Suction Drain Inferior;Midline Back (Removed) Tourniquet Times: Implants: Implants Type Name Action Serial No. Graft GRAFT MATRIX, DURAL, DURAGEN PLUS 2X2 (1/PK) - [id number] Implanted Neuro Interventional Implant CROSS PIN, AXS SELF-TAP, 1.5 X 4MM - [id number] Implanted Screw PLATE, YY 6H 8MM BAR ULTRA LOW PROFILE - [id number] Implanted Screw PLATE, 2H 10MM BAR ULTRA LOW PROFILE - [id number] Implanted Findings: Indications: Ya Womack is an 57 y.o. female who is having surgery for CSF leak [G96.00]. The patient was seen in the preoperative area. The risks, benefits, complications, treatment options, non-operative alternatives, expected recovery and outcomes were discussed with the patient. The possibilities of reaction to medication, pulmonary aspiration, injury to surrounding structures, bleeding, recurrent infection, the need for additional procedures, failure to diagnose a condition, and creating a complication requiring transfusion or operation were discussed with the patient. The patient concurred with the proposed plan, giving informed consent. The site of surgery was properly noted/marked if necessary per policy. The patient has been actively warmed in preoperative area. Preoperative antibiotics Venous thrombosis prophylaxis Procedure Details: A lumbar drain catheter plug was also placed in the L3-4 interspace after induction of general anesthesia allowed to drain intermittently throughout the procedure and postoperatively for CSF diversion without complication using a needle catheter Complications: Disposition: Condition: Additional Details: Attending Attestation: Clayton Hawley [facility] Work Phone: 02-22-2023 Note Formatting of this n ote is different from the original. 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 Craniotomy for repair of cerebrospinal fluid leak, including surgery for otorrhea, and temporal skull base encephalocele [41345-36] - Middle Fossa Approach for repair of tegmen encephalocele and CSF leak, Duraplasty - Right 2. Secondary repair of dural/cerebrospinal fluid leak [28461-90] - Right 3. Needle electromyography; cranial nerve supplied muscle(s), unilateral - Facial nerve. - Right 4. Microsurgical techniques, requiring use of operating microscope - Right 5. Right ear tube removal with underlay myringoplasty [89884] Surgeons Panel 1: * Clayton Hawley - Primary Panel 2: * Fercho Ham - Primary Resident/Fellow/Other Zipper Setter Lockstitch: Surgeon(s) and Role: Panel 1: * Katherine Polanco MD - Resident - Assisting Panel 2: * Leslye Villasenor MD - Resident - Assisting Procedure Summary Anesthesia: General ASA: III Anesthesia Staff: Anesthesiologist: Nish Ferguson MD PhD C-AA: SAGAR Rivera Capp; SAGAR Ibrahim Estimated Blood Loss: 25mL Intra-op Medications: Medication Name Total Dose lidocaine-epinephrine (Xylocaine W/EPI) 0.5 %-1:200,000 injection 10 mL thrombin (recombinant) (Recothrom) topical solution 10,000 Units gelatin absorbable (Gelfoam) 100 sponge 1 each polymyxin B 500,000 Units in sodium chloride 0.9 % 1,000 mL irrigation Cannot be calculated HYDROmorphone (Dilaudid) injection 0.2 mg 0.2 mg oxyCODONE (Roxicodone) immediate release tablet 10 mg 10 mg Anesthesia Record Intraprocedure I/O Totals Intake LR 500.00 mL Phenylephrine Drip 0.00 mL The total shown is the total volume documented since Anesthesia Start was filed. lactated Ringer's 1000.00 mL Total Intake 1500 mL Output Urine 215 mL Total Output 215 mL Net Net Volume 1285 mL Specimen: No specimens collected Staff: Operator Vacuum: Monae Jean RN Relief Operator Vacuum: Amanda Benavides RN Relief Scrub: Katie Jennings RN Scrub Person: Andrew Strong Drains and/or Catheters: Urethral Catheter Non-latex 16 Fr. (Active) Lumbar Drain (Active) Status 10 mL/hr 02/22/23 1300 CSF Color Clear 02/22/23 1300 Site Description Healing 02/22/23 1337 Dressing Status Clean;Dry 02/22/23 1337 CSF Output (mL) 10 mL 02/22/23 1300 [REMOVED] Closed/Suction Drain Inferior;Midline Back (Removed) Tourniquet Times: Implants: Implants Type Name Action Serial No. Graft GRAFT MATRIX, DURAL, DURAGEN PLUS 2X2 (/) - [id number] Implanted Neuro Interventional Implant CROSS PIN, AXS SELF-TAP, 1.5 X 4MM - [id number] Implanted Screw PLATE, YY 6H 8MM BAR ULTRA LOW PROFILE - [id number] Implanted Screw PLATE, 2H 10MM BAR ULTRA LOW PROFILE - [id number] Implanted Findings: 1. Lumbar drain placed by Neurosurgery team at start of case, rapid and high-flow CSF return upon intradural space entry. 2. Small tegmen defect medially with encephalocele, repaired in multilayered fashion with superficial temporalis fascia, bone flap, and duraseal by Dr. Hawley. 3. No passive stimulation of facial nerve throughout procedure; GSPN not identified during dissection. 4. Ear tube removed and myringoplasty completed via placement of superficial temporalis fascia medial to remnant perforation. Indications: Ya Womack is an 57 y.o. female who presented with CSF otorrhea due to tegmen dehiscence and suspected small encephalocele based on CT imaging. She had an ear tube in place with persistent clear leakage of fluid from the right ear, and testing of this fluid was positive for beta 2 transferrin. Due to the medial location of the skull base defect and no appreciable contact of the suspected encephalocele with the ossicles, a middle fossa craniotomy was recommended for repair of the skull base defect. The risks, indications, alternatives and complications were discussed with the patient. These included, but are not limited to deafness in the operated ear, vertigo, dizziness, imbalance, facial weakness or paralysis, change in sense of taste, remnant perforation of eardrum, pain, bleeding, infection, scarring, need for further surgery, persistent spinal fluid leak, meningitis, brain damage, brain abscess, stroke, seizures, and . The patient elected to proceed and surgical consent was signed and saved to the chart. Procedure Details: On completion of the appropriate preoperative surgical and anesthesiology evaluations, the patient was taken to the operating room and placed in the supine position. After induction of anesthesia, the patient was endotracheally intubated without difficulty. The ear was prepared appropriately for surgery. Bipolar needle electrodes were placed in the orbicularis eduarda and orbicularis oculi muscles, and the patient underwent continuous 7th nerve monitoring throughout the operation. Weiner catheter, arterial line, and IV access were all obtained and placed. A lumbar drain was then placed by Neurosurgery without complication. The patient was placed in supine position, padded, and secured properly. The bed was turned 180 degrees away from Anesthesia. A lazy-S incision was marked starting in the superior postauricular region, curving superiorly and anteriorly to access the middle fossa. The patient was prepped and draped in the usual sterile fashion. We began with an incision through the premarked lazy-S tracing. This was deepened just to the level of the loose areolar tissue over the temporalis muscle. A large piece of superficial temporalis fascia was harvested and set aside for later use. The temporalis muscle was then incised to make an anteriorly based muscle flap, which was retracted away. The zygomatic root was well-visualized at the anteroinferior aspect of our middle fossa craniotomy site exposure. We then performed a middle fossa craniotomy using a 3-cutting and 3-denise bur. The craniotomy measured approximately 3cm x 2.5cm and was centered over the zygomatic root. Under constant irrigation, the bone flap was outlined and deepened down to dura circumferentially, taking great care anteroinferiorly where the bone flap was thinnest. Once we had reached dura along all edges, a [place] 1 dissector was used to carefully elevate the bone flap off the underlying dura. Eventually the bone flap was removed and set aside for later use. There were no dural tears noted after completion of our craniotomy. Working with Neurosurgery, the dura was elevated from the middle fossa floor from posterior to anterior and lateral to medial. One small defect was uncovered medially, with evidence of a small herniating encephalocele. There was a small CSF leak noted during this dissection. The dura was elevated such that the entire defect was exposed with normal bone appearing around all edges of the defect. Next, Dr. Hawley performed the repair, using superficial temporalis fascia over the middle fossa floor. A thin piece of bone that had been carved from the craniotomy bone flap was then placed over the fascia. The entire repair site was filled with Duraseal. The dura and brain were then relaxed back over the skull base. The bone flap was replaced with 2 mesh plates. The temporalis muscle and incision were then closed in layers, closing the muscle with 2-0 vicryl, and the deep dermal layer with simple interrupted monocryl suture. The skin incision was then closed with a running locking prolene suture. A speculum was placed in the ear canal, which was inspected and intact. A previously placed PE tube was identified. The PE tube was removed and Gelfoam was placed into the perforation and into the middle ear space. Additional superficial temporalis fascia was placed under the drum in an underlay fascion. Gelfoam was then placed over the graft. At this stage, bactroban, telfa, and a Latimer dressing were then placed over the incision. This completed the procedure. The patient was then emerged from anesthesia and extubated without difficulty. The patient was eventually transported back to PACU in stable condition. There were no apparent complications. Following the procedure, Dr. Ham discussed the findings with the patient's family and answered all of their questions. Dr. Ham was present and participated in all portions of the procedure. Complications: None; patient tolerated the procedure well. Disposition: PACU - hemodynamically stable. Condition: stable Attending Attestation: Associated attestation - Fercho Ham MD - 02/22/2023 3:11 PM EST I was present during all critical and rodriguez portions of the procedure(s) and immediately available to furnish services the entire duration. See resident note for details. [facility] Work Phone: 02-22-2023 Note Formatting of this n ote is different from the original. Date: 02/22/2023 OR Location: [facility] OR Name: Ya Womack, : 1965, Age: 57 y.o., , Sex: female Diagnosis Pre-op Diagnosis * CSF leak [G96.00] Post-op Diagnosis * CSF leak [G96.00] Procedures Craniotomy Middle Fossa with mastodectomy 08492 - TN RESCJ/EXC LES ITPRL FOSSA SPACE APEX IDRL W/RPR Craniotomy Middle Fossa with mastoidectomy 46824 - TN RESCJ/EXC LES ITPRL FOSSA SPACE APEX IDRL W/RPR TN STRTCTC CPTR ASSTD PX CRANIAL INTRADURAL [83444] TN MICROSURG TQS REQ USE OPERATING MICROSCOPE [68466] TN INFRATEMPO MID CRANIAL FOSSA W/WO DCOMPR&/MOBI [80584] TN IONM 1 ON 1 IN OR W/ATTENDANCE EACH 15 MINUTES [17774] Surgeons Panel 1: * Clayton Hawley - Primary Panel 2: * Fercho Ham - Primary Resident/Fellow/Other Zipper Setter Lockstitch: Surgeon(s) and Role: Panel 1: * Katherine Polanco MD - Resident - Assisting Panel 2: * Leslye Villasenor MD - Resident - Assisting Procedure Summary Anesthesia: General ASA: III Anesthesia Staff: Anesthesiologist: Nish Ferugson MD PhD C-AA: SAGAR Rivera Capp; SAGAR Ibrahim Estimated Blood Loss: 50mL Intra-op Medications: Medication Name Total Dose lidocaine-epinephrine (Xylocaine W/EPI) 0.5 %-1:200,000 injection 10 mL thrombin (recombinant) (Recothrom) topical solution 10,000 Units gelatin absorbable (Gelfoam) 100 sponge 1 each polymyxin B 500,000 Units in sodium chloride 0.9 % 1,000 mL irrigation Cannot be calculated Anesthesia Record Intraprocedure I/O Totals Intake Phenylephrine Drip 0.00 mL The total shown is the total volume documented since Anesthesia Start was filed. Total Intake 0 mL Output Urine 215 mL Total Output 215 mL Net Net Volume -215 mL Specimen: No specimens collected Staff: Operator Vacuum: Monae Jean RN Scrub Person: Andrew Strong Findings: good repair of CSF leak Complications: None; patient tolerated the procedure well. Disposition: PACU - hemodynamically stable. Condition: stable Specimens Collected: No specimens collected Attending Attestation: Clayton Hawley [facility] Work Phone: 02-22-2023 History and physical note HISTORY OF PRESENT ILLNESS from 12/24/2022: Ya Womack is a 57 y.o. female who presents today with symptoms of right ear drainage. She reports that she started having right-sided fullness and hearing loss in December 2021. She was evaluated by Dr. Nye, who identified a middle ear effusion. She subsequently underwent a myringotomy with tube placement in October 2022. This was concerning for significant clear middle ear effusion. This was sent off for beta-2 transferrin and found to be positive. She has had constant drainage in the right ear since the myringotomy with tube placement was performed. CT is concerning for an encephalocele and possible spinal fluid leak in the tegmen. She has been referred for further management. She denies previous ear problems or ear surgeries other than the tympanostomy tube placement. Interval History from 01/07/2023: She has been having right ear pain for the past 4 days. She went to the ED, and was placed on amoxicillin 2 days ago. She is still having ear pain. Interval History: No change in symptoms. She is doing well. She presents for repair of the CSF leak. PAST MEDICAL HISTORY: Diabetes Hypertension PAST SURGICAL HISTORY: No previous otologic surgery MEDICATIONS: Current Outpatient Medications: amLODIPine (Norvasc) 10 mg tablet, Take 1 tablet (10 mg) by mouth once daily., Disp: , Rfl: busPIRone (Buspar) 10 mg tablet, Take 1 tablet (10 mg) by mouth 2 times a day., Disp: , Rfl: DULoxetine (Cymbalta) [address] capsule, Take 2 capsules (120 mg) by mouth once daily., Disp: , Rfl: HYDROcodone-acetaminophen ([place]) 5-325 mg tablet, Take by mouth., Disp: , Rfl: hydrOXYzine pamoate (Vistaril) 50 mg capsule, Take 1 capsule (50 mg) by mouth 3 times a day as needed for itching., Disp: , Rfl: ibuprofen 600 mg tablet, Take 1 tablet (600 mg) by mouth every 6 hours if needed for mild pain (1 - 3)., Disp: , Rfl: lamoTRIgine (LaMICtal) 100 mg tablet, Take 1 tablet (100 mg) by mouth 2 times a day., Disp: , Rfl: lisinopriL-hydrochlorothiazide 20-25 mg tablet, Take 1 tablet by mouth once daily., Disp: , Rfl: lovastatin (Mevacor) 40 mg tablet, Take 1 tablet (40 mg) by mouth once daily at bedtime., Disp: , Rfl: metFORMIN, OSM, (Fortamet) 500 mg 24 hr tablet, Take 1 tablet (500 mg) by mouth once daily in the evening. Take with meals. Do not crush, chew, or split., Disp: , Rfl: primidone (Mysoline) 50 mg tablet, Take 1 tablet (50 mg) by mouth once daily at bedtime. Take 1 tablet in am and 3 tablets in pm, Disp: , Rfl: ropinirole HCl (ROPINIROLE ORAL), Take 1 mg by mouth 2 times a day. Take 1mg in am and 1.5mg at night, Disp: , Rfl: traZODone (Desyrel) 100 mg tablet, Take 1 tablet (100 mg) by mouth once daily at bedtime., Disp: , Rfl: ciprofloxacin-dexamethasone (CiproDEX) otic suspension, Administer 4 drops into the right ear 2 times a day. (Patient not taking: Reported on 01/07/2023), Disp: 7.5 mL, Rfl: 0 ALLERGIES: No Known Allergies SOCIAL HISTORY: reports that she has never smoked. She has never used smokeless tobacco. She reports that she does not use drugs. FAMILY HISTORY: Non-contributory REVIEW OF SYSTEMS Review of Systems Constitutional: Negative for chills, fatigue and fever. HENT: Positive for ear discharge. Respiratory: Negative for shortness of breath. Cardiovascular: Negative for chest pain. Gastrointestinal: Negative for nausea and vomiting. Neurological: Negative. PHYSICAL EXAM: VITALS: Vitals Vitals: 01/07/23 1407 Pulse: 94 Resp: 18 Temp: 36.2 C (97.2 F) TempSrc: Temporal Weight: (!) 155 kg (342 lb) Height: 1.676 m (5' 6 ) GENERAL: healthy, alert, well developed, well nourished, no distress, cooperative, appears chronologic age Communicates with normal voice and without hearing aids. HEAD: atraumatic, normocephalic, no lesions EYES: normal, PERRLA and EOM's intact EARS: Normal external ears NOSE: nose shows no deformity, asymmetry, or inflammation, nasal mucosa normal, septum midline with no perforation or bleeding, turbinates normal, no polyps, no sinus tenderness ORAL CAVITY/OROPHARYNX: negative findings: lips normal without lesions, buccal mucosa normal, gums healthy, teeth intact, non-carious, palate normal, tongue midline and normal, soft palate, uvula, and tonsils normal NECK AND SALIVARY GLANDS: Neck is supple without masses or lymphadenopathy. Palpation of the parotid and submandibular gland reveals no masses or tenderness to palpation. CRANIAL NERVES: intact, Facial nerve exam is House - [place]ack[place] 1- Normal Function on the right and 1- Normal Function on the left. CARDIOVASCULAR: No evidence of peripheral edema PULMONARY: normal lung excursion, no evidence of retractions DATA REVIEWED: Audiogram I reviewed the audiogram from 07/06/2022, which revealed a right normal sloping to moderately severe mixed hearing loss and a left normal sloping to moderate sensorineural hearing loss. Word recognition score was 100% on the right and 96% on the left. There was a type B tympanogram on the right and a type a tympanogram on the left. CT --I reviewed both the images and the report from the outside CT. 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 I reviewed the results of the beta-2 transferrin testing, which were positive. 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 The defect and associated encephalocele do not appear to be in contact with the ossicles, and for this reason I do not think a mastoidectomy is necessary to try to free encephalocele away from the ossicles. On the other hand, the defect also appears quite medial and I think this may be difficult to repair transmastoid. For this reason I would recommend a middle fossa craniotomy approach. I discussed the risk, benefits of this procedure in detail including, but not limited to, bleeding, pain, infection, seizure, stroke, meningitis, , facial weakness, change in taste, hearing loss, dizziness, need for further procedures. I will also remove the tube and perform a myringoplasty for a hole in the ear drum. Plan for right middle fossa craniotomy for repair of CSF leak, right tube removal and myringoplasty. The patient elects to proceed. We will proceed today with surgery. [facility] Work Phone: 02-22-2023 History and physical note HISTORY OF PRESENT ILLNESS from 12/24/2022: Ya Womack is a 57 y.o. female who presents today with symptoms of right ear drainage. She reports that she started having right-sided fullness and hearing loss in December 2021. She was evaluated by Dr. Nye, who identified a middle ear effusion. She subsequently underwent a myringotomy with tube placement in October 2022. This was concerning for significant clear middle ear effusion. This was sent off for beta-2 transferrin and found to be positive. She has had constant drainage in the right ear since the myringotomy with tube placement was performed. CT is concerning for an encephalocele and possible spinal fluid leak in the tegmen. She has been referred for further management. She denies previous ear problems or ear surgeries other than the tympanostomy tube placement. Interval History from 01/07/2023: She has been having right ear pain for the past 4 days. She went to the ED, and was placed on amoxicillin 2 days ago. She is still having ear pain. Interval History: No change in symptoms. She is doing well. She presents for repair of the CSF leak. PAST MEDICAL HISTORY: Diabetes Hypertension PAST SURGICAL HISTORY: No previous otologic surgery MEDICATIONS: Current Outpatient Medications: amLODIPine (Norvasc) 10 mg tablet, Take 1 tablet (10 mg) by mouth once daily., Disp: , Rfl: busPIRone (Buspar) 10 mg tablet, Take 1 tablet (10 mg) by mouth 2 times a day., Disp: , Rfl: DULoxetine (Cymbalta) [address] capsule, Take 2 capsules (120 mg) by mouth once daily., Disp: , Rfl: HYDROcodone-acetaminophen ([place]) 5-325 mg tablet, Take by mouth., Disp: , Rfl: hydrOXYzine pamoate (Vistaril) 50 mg capsule, Take 1 capsule (50 mg) by mouth 3 times a day as needed for itching., Disp: , Rfl: ibuprofen 600 mg tablet, Take 1 tablet (600 mg) by mouth every 6 hours if needed for mild pain (1 - 3)., Disp: , Rfl: lamoTRIgine (LaMICtal) 100 mg tablet, Take 1 tablet (100 mg) by mouth 2 times a day., Disp: , Rfl: lisinopriL-hydrochlorothiazide 20-25 mg tablet, Take 1 tablet by mouth once daily., Disp: , Rfl: lovastatin (Mevacor) 40 mg tablet, Take 1 tablet (40 mg) by mouth once daily at bedtime., Disp: , Rfl: metFORMIN, OSM, (Fortamet) 500 mg 24 hr tablet, Take 1 tablet (500 mg) by mouth once daily in the evening. Take with meals. Do not crush, chew, or split., Disp: , Rfl: primidone (Mysoline) 50 mg tablet, Take 1 tablet (50 mg) by mouth once daily at bedtime. Take 1 tablet in am and 3 tablets in pm, Disp: , Rfl: ropinirole HCl (ROPINIROLE ORAL), Take 1 mg by mouth 2 times a day. Take 1mg in am and 1.5mg at night, Disp: , Rfl: traZODone (Desyrel) 100 mg tablet, Take 1 tablet (100 mg) by mouth once daily at bedtime., Disp: , Rfl: ciprofloxacin-dexamethasone (CiproDEX) otic suspension, Administer 4 drops into the right ear 2 times a day. (Patient not taking: Reported on 01/07/2023), Disp: 7.5 mL, Rfl: 0 ALLERGIES: No Known Allergies SOCIAL HISTORY: reports that she has never smoked. She has never used smokeless tobacco. She reports that she does not use drugs. FAMILY HISTORY: Non-contributory REVIEW OF SYSTEMS Review of Systems Constitutional: Negative for chills, fatigue and fever. HENT: Positive for ear discharge. Respiratory: Negative for shortness of breath. Cardiovascular: Negative for chest pain. Gastrointestinal: Negative for nausea and vomiting. Neurological: Negative. PHYSICAL EXAM: VITALS: Vitals Vitals: 01/07/23 1407 Pulse: 94 Resp: 18 Temp: 36.2 C (97.2 F) TempSrc: Temporal Weight: (!) 155 kg (342 lb) Height: 1.676 m (5' 6 ) GENERAL: healthy, alert, well developed, well nourished, no distress, cooperative, appears chronologic age Communicates with normal voice and without hearing aids. HEAD: atraumatic, normocephalic, no lesions EYES: normal, PERRLA and EOM's intact EARS: Normal external ears NOSE: nose shows no deformity, asymmetry, or inflammation, nasal mucosa normal, septum midline with no perforation or bleeding, turbinates normal, no polyps, no sinus tenderness ORAL CAVITY/OROPHARYNX: negative findings: lips normal without lesions, buccal mucosa normal, gums healthy, teeth intact, non-carious, palate normal, tongue midline and normal, soft palate, uvula, and tonsils normal NECK AND SALIVARY GLANDS: Neck is supple without masses or lymphadenopathy. Palpation of the parotid and submandibular gland reveals no masses or tenderness to palpation. CRANIAL NERVES: intact, Facial nerve exam is House - Brackmann 1- Normal Function on the right and 1- Normal Function on the left. CARDIOVASCULAR: No evidence of peripheral edema PULMONARY: normal lung excursion, no evidence of retractions DATA REVIEWED: Audiogram I reviewed the audiogram from 07/06/2022, which revealed a right normal sloping to moderately severe mixed hearing loss and a left normal sloping to moderate sensorineural hearing loss. Word recognition score was 100% on the right and 96% on the left. There was a type B tympanogram on the right and a type a tympanogram on the left. CT --I reviewed both the images and the report from the outside CT. 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 I reviewed the results of the beta-2 transferrin testing, which were positive. 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 The defect and associated encephalocele do not appear to be in contact with the ossicles, and for this reason I do not think a mastoidectomy is necessary to try to free encephalocele away from the ossicles. On the other hand, the defect also appears quite medial and I think this may be difficult to repair transmastoid. For this reason I would recommend a middle fossa craniotomy approach. I discussed the risk, benefits of this procedure in detail including, but not limited to, bleeding, pain, infection, seizure, stroke, meningitis, , facial weakness, change in taste, hearing loss, dizziness, need for further procedures. I will also remove the tube and perform a myringoplasty for a hole in the ear drum. Plan for right middle fossa craniotomy for repair of CSF leak, right tube removal and myringoplasty. The patient elects to proceed. We will proceed today with surgery. H&P reviewed. The patient was examined and there are no changes to the H&P. Source Note - Renae Bowles, [employer] TECHNOLOGY TEACHER-CLINICAL TECHNICIAN - 02/17/2023 1:00 PM EST CPM/PAT Evaluation Name: Ya Womack (Ya Womack) /Age: 103/29/1965/57 y.o. Visit Type: In-Person Chief Complaint: CSF leak scheduled for surgery HPI: Patient is a 57-year-old female scheduled for middle fossa craniotomy with mastoidectomy on February 22, 2023 for treatment of CSF leak. The patient is referred by Dr. Clayton Hawley and Dr. Fercho Ham for preoperative evaluation of anxiety, depression, bipolar disorder, CSF leak, essential tremor managed on primidone, hypertension, hyperlipidemia, restless leg syndrome managed on ropinirole, SHASHA noncompliant with CPAP. Past Medical History: Diagnosis Date Angina pectoris (CMS/HCC) Echo on 12/25/22 Anxiety Bipolar disorder (CMS/HCC) CSF leak 01/18/2023 Neuro: Clayton puga Depression Essential tremor HL (hearing loss) Hyperlipidemia Hypertension Restless leg syndrome Sleep apnea Past Surgical History: Procedure Laterality Date CHOLECYSTECTOMY COLONOSCOPY HYSTERECTOMY OTHER SURGICAL HISTORY Bilateral meniscus tear repair Patient has no history on file for sexual activity. Family History Problem Relation Name Age of Onset Other (motor vehicle accident) Mother COPD Father No Known Allergies Prior to Admission medications Medication Sig Start Date End Date Taking? Authorizing Provider amLODIPine (Norvasc) 10 mg tablet Take 1 tablet (10 mg) by mouth once daily. Historical ProviderMD busPIRone (Buspar) 10 mg tablet Take 1 tablet (10 mg) by mouth 2 times a day. 12/17/22 Historical ProviderMD chlorhexidine (Hibiclens) 4 % external liquid Apply topically 2 times a day for 5 days. 02/17/23 02/22/23 VENUS Allen chlorhexidine (Peridex) 0.12 % solution Swish and spit 15 mL night before surgery and morning of surgery 02/17/23 VENUS Allen DULoxetine (Cymbalta) [address] capsule Take 2 capsules (120 mg) by mouth once daily. Historical Provider, hydrOXYzine pamoate (Vistaril) 50 mg capsule Take 1 capsule (50 mg) by mouth 3 times a day as needed for itching. Historical Provider, ibuprofen 600 mg tablet Take 1 tablet (600 mg) by mouth every 6 hours if needed for mild pain (1 - 3). Historical Provider, lamoTRIgine (LaMICtal) 100 mg tablet Take 1 tablet (100 mg) by mouth 2 times a day. 12/22/22 Historical Provider, lisinopriL-hydrochlorothiazide 20-25 mg tablet Take 1 tablet by mouth once daily. Historical Provider, lovastatin (Mevacor) 40 mg tablet Take 1 tablet (40 mg) by mouth once daily at bedtime. Historical Provider, metFORMIN, OSM, (Fortamet) 500 mg 24 hr tablet Take 1 tablet (500 mg) by mouth once daily in the evening. Take with meals. Do not crush, chew, or split. Historical Provider, primidone (Mysoline) 50 mg tablet Take 1 tablet (50 mg) by mouth once daily at bedtime. Take 1 tablet in am and 3 tablets in pm Historical ProviderMD ropinirole HCl (ROPINIROLE ORAL) Take 1 mg by mouth 2 times a day. Take 1mg in am and 1.5mg at night Historical ProviderMD traZODone (Desyrel) 100 mg tablet Take 1 tablet (100 mg) by mouth once daily at bedtime. Historical Provider, ciprofloxacin-dexamethasone (CiproDEX) otic suspension Administer 4 drops into the right ear 2 times a day. Patient not taking: Reported on 01/07/2023 01/07/23 02/17/23 Fercho Ham MD HYDROcodone-acetaminophen ([place]) 5-325 mg tablet Take by mouth. 02/17/23 Historical Provider, MD DAMIAN ROS: Constitutional: neg Neuro/Psych: neg Eyes: neg use of corrective lenses Ears: ear discharge (right ear- CSF) Nose: neg Mouth: neg Throat: neg Neck: neg Cardio: neg Respiratory: neg Endocrine: neg GI: neg : neg Musculoskeletal: neg Hematologic: neg Skin: neg Physical Exam Vitals reviewed. Constitutional: Appearance: Normal appearance. She is morbidly obese. HENT: Head: Normocephalic. Mouth/Throat: Mouth: Mucous membranes are dry. Eyes: Conjunctiva/sclera: Conjunctivae normal. Neck: Vascular: No carotid bruit. Cardiovascular: Rate and Rhythm: Normal rate and regular rhythm. Pulses: Normal pulses. Heart sounds: Normal heart sounds. Pulmonary: Effort: Pulmonary effort is normal. Breath sounds: Normal breath sounds. Abdominal: Palpations: Abdomen is soft. Tenderness: There is no abdominal tenderness. Musculoskeletal: General: Normal range of motion. Cervical back: Normal range of motion. Right lower leg: No edema. Left lower leg: No edema. Lymphadenopathy: Cervical: No cervical adenopathy. Skin: General: Skin is warm and dry. Capillary Refill: Capillary refill takes less than 2 seconds. Neurological: General: No focal deficit present. Mental Status: She is alert and oriented to person, place, and time. Psychiatric: Mood and Affect: Mood normal. Behavior: Behavior normal. Thought Content: Thought content normal. Judgment: Judgment normal. PAT AIRWAY: Airway: Mallampati:: II Neck ROM:: Full normal Visit Vitals BP 130/80 Pulse 95 Temp 35.8 C (96.5 F) DASI Risk Score Flowsheet Row Most Recent Value DASI SCORE 31.95 METS Score (Will be calculated only when all the questions are answered) 6.7 Caprini DVT Assessment Flowsheet Row Most Recent Value DVT Score 10 Current Status Major surgery planned, lasting over 3 hours History Prior major surgery Age 40-59 years BMI Greater than 50 (Venous stasis syndrome) Modified Frailty Index Flowsheet Row Most Recent Value Modified Frailty Index Calculator .1818 CHADS2 Stroke Risk Current as of 4 hours ago N/A 3 - 100%: High Risk 2 - 3%: Medium Risk 0 - 2%: Low Risk Last Change: N/A This score determines the patient's risk of having a stroke if the patient has atrial fibrillation. This score is not applicable to this patient. Components are not calculated. Revised Cardiac Risk Index Flowsheet Row Most Recent Value Revised Cardiac Risk Calculator 0 Apfel Simplified Score Flowsheet Row Most Recent Value Apfel Simplified Score Calculator 3 Risk Analysis Index Results This Encounter No data found in the last 1 encounters. Stop Bang Score Flowsheet Row Most Recent Value Do you snore loudly? 1 Do you often feel tired or fatigued after your sleep? 1 Has anyone ever observed you stop breathing in your sleep? 0 Do you have or are you being treated for high blood pressure? 1 Recent BMI (Calculated) 55.2 Is BMI greater than 35 kg/m2? 1=Yes Age older than 50 years old? 1=Yes Is your neck circumference greater than 17 inches (Male) or 16 inches (Female)? 1 Gender - Male 0=No STOP-BANG Total Score 6 Assessment and Plan: Neuro: anxiety, depression and bipolar disorder managed on buspar and cymbalta. essential tremor managed on primidone and lamictal. restless leg syndrome managed on ropinirole. The patient is at an increased risk for post operative delirium secondary to depression, polypharmacy and type and duration of surgery. Preoperative brain exercise educational handout provided to patient. The patient is at an increased risk for perioperative stroke secondary to HTN, HLD, DM, female sex and neuro surgery with general anesthesia and op time >2.5 hours. HEENT/Airway: CSF leak scheduled for surgery. Cardiovascular: HTN and HLD managed with diet and medications. Dobutamine stress echo with contrast on 12/25/2022 negative for stress-induced ischemia-normal dobutamine stress echo. Performed at [facility] in [facility]- found in care everywhere tab. No additional preoperative testing is currently indicated. METS are 6.7 RCRI 0 which is 3.9% 30 day risk of MACE (risk for cardiac , nonfatal myocardial infarction, and nonfactal cardiac arrest THEODORA score which indicates a 0.2% risk of intraoperative or 30-day postoperative MACE Pulmonary: SHASHA noncompliant with CPAP. Preoperative deep breathing educational handout provided to patient. ARISCAT: 26 points which is an intermediate risk of in-hospital post-op pulmonary complications PRODIGY: 5 points which is a low risk of post op opioid induced respiratory depression episodes STOP BAN points which is a high risk for moderate to severe SHASHA. Declined referral for sleep medicine. Renal: No diagnosis or significant findings on chart review or clinical presentation and evaluation, however, the patient is at increased risk of perioperative renal complications secondary to age> 56 and HTN. Preventative measures include preop BP control and hydration. Endocrine: No diagnosis or significant findings on chart review or clinical presentation and evaluation. Hematologic: negative or type diagnoses. Preoperative DVT educational handout provided to patient. Caprini Score: 10 points which is a highest risk of perioperative VTE Gastrointestinal: morbid obesity scheduled for bariatric surgery in 04/2023 EAT-10 score of 0- self-perceived oropharyngeal dysphagia scale (0-40) Apfel: 3 points 61% risk for post operative N/V Infectious disease: No diagnosis or significant findings on chart review or clinical presentation and evaluation. Musculoskeletal: No diagnosis or significant findings on chart review or clinical presentation and evaluation. Labs ordered Results for orders placed or performed in visit on 02/17/23 (from the past 96 hour(s)) CBC Result Value Ref Range WBC 8.5 4.4 - 11.3 x10*3/uL nRBC 0.0 0.0 - 0.0 /100 WBCs RBC 4.61 4.00 - 5.20 x10*6/uL Hemoglobin 13.3 12.0 - 16.0 g/dL Hematocrit 41.4 36.0 - 46.0 % MCV 90 80 - 100 fL MCH 28.9 26.0 - 34.0 pg MCHC 32.1 32.0 - 36.0 g/dL RDW 13.1 11.5 - 14.5 % Platelets 294 150 - 450 x10*3/uL Basic Metabolic Panel Result Value Ref Range Glucose 90 74 - 99 mg/dL Sodium 138 136 - 145 mmol/L Potassium 4.9 3.5 - 5.3 mmol/L Chloride 100 98 - 107 mmol/L Bicarbonate 27 21 - 32 mmol/L Anion Gap 16 10 - 20 mmol/L Urea Nitrogen 25 (H) 6 - 23 mg/dL Creatinine 0.62 0.50 - 1.05 mg/dL eGFR >90 >60 mL/min/1.73m*2 Calcium 9.7 8.6 - 10.6 mg/dL Coagulation Screen Result Value Ref Range Protime 12.8 9.8 - 12.8 seconds INR 1.1 0.9 - 1.1 aPTT 36 27 - 38 seconds Type And Screen Result Value Ref Range ABO TYPE O Rh TYPE POS ANTIBODY SCREEN NEG Hemoglobin A1C Result Value Ref Range Hemoglobin A1C 5.9 (H) see below % Estimated Average Glucose 123 Not Established mg/dL Staphylococcus aureus/MRSA colonization, Culture Specimen: Nares/Axilla/Groin; Swab Result Value Ref Range Staph/MRSA Screen Culture No Staphylococcus aureus isolated Urinalysis with Reflex Microscopic and Culture Result Value Ref Range Color, Urine Yellow Straw, Yellow Appearance, Urine Clear Clear Specific [place], Urine 1.019 1.005 - 1.035 pH, Urine 5.0 5.0, 5.5, 6.0, 6.5, 7.0, 7.5, 8.0 Protein, Urine NEGATIVE NEGATIVE mg/dL Glucose, Urine NEGATIVE NEGATIVE mg/dL Blood, Urine NEGATIVE NEGATIVE Ketones, Urine NEGATIVE NEGATIVE mg/dL Bilirubin, Urine NEGATIVE NEGATIVE Urobilinogen, Urine <2.0 <2.0 mg/dL Nitrite, Urine NEGATIVE NEGATIVE Leukocyte Esterase, Urine SMALL (1+) (A) NEGATIVE Extra Urine Gallagher Tube Result Value Ref Range Extra Tube Hold for add-ons. Microscopic Only, Urine Result Value Ref Range WBC, Urine 1-5 1-5, NONE /HPF RBC, Urine 1-2 NONE, 1-2, 3-5 /HPF Squamous Epithelial Cells, Urine 1-9 (SPARSE) Reference range not established. /HPF Urine Culture Specimen: Clean Catch/Voided; Urine Result Value Ref Range Urine Culture No significant growth documented in this encounter [facility] Work Phone: 02-22-2023 Attending History and physical note H&P reviewed. The patient was examined and there are no changes to the H&P. Source Note - VENUS Allen - 02/17/2023 1:00 PM EST CPM/PAT Evaluation Name: Ya Womack (Ya Womack) /Age: 103/29/1965/57 y.o. Visit Type: In-Person Chief Complaint: CSF leak scheduled for surgery HPI: Patient is a 57-year-old female scheduled for middle fossa craniotomy with mastoidectomy on February 22, 2023 for treatment of CSF leak. The patient is referred by Dr. Clayton Hawley and Dr. Fercho Ham for preoperative evaluation of anxiety, depression, bipolar disorder, CSF leak, essential tremor managed on primidone, hypertension, hyperlipidemia, restless leg syndrome managed on ropinirole, SHASHA noncompliant with CPAP. Past Medical History: Diagnosis Date Angina pectoris (CMS/HCC) Echo on 12/25/22 Anxiety Bipolar disorder (CMS/HCC) CSF leak 01/18/2023 Neuro: Clayton puga Depression Essential tremor HL (hearing loss) Hyperlipidemia Hypertension Restless leg syndrome Sleep apnea Past Surgical History: Procedure Laterality Date CHOLECYSTECTOMY COLONOSCOPY HYSTERECTOMY OTHER SURGICAL HISTORY Bilateral meniscus tear repair Patient has no history on file for sexual activity. Family History Problem Relation Name Age of Onset Other (motor vehicle accident) Mother COPD Father No Known Allergies Prior to Admission medications Medication Sig Start Date End Date Taking? Authorizing Provider amLODIPine (Norvasc) 10 mg tablet Take 1 tablet (10 mg) by mouth once daily. Historical Provider, busPIRone (Buspar) 10 mg tablet Take 1 tablet (10 mg) by mouth 2 times a day. 12/17/22 Historical Provider, chlorhexidine (Hibiclens) 4 % external liquid Apply topically 2 times a day for 5 days. 02/17/23 02/22/23 VENUS Allen chlorhexidine (Peridex) 0.12 % solution Swish and spit 15 mL night before surgery and morning of surgery 02/17/23 VENUS Allen DULoxetine (Cymbalta) [address] capsule Take 2 capsules (120 mg) by mouth once daily. Historical Provider, hydrOXYzine pamoate (Vistaril) 50 mg capsule Take 1 capsule (50 mg) by mouth 3 times a day as needed for itching. Historical Provider, ibuprofen 600 mg tablet Take 1 tablet (600 mg) by mouth every 6 hours if needed for mild pain (1 - 3). Historical Provider, lamoTRIgine (LaMICtal) 100 mg tablet Take 1 tablet (100 mg) by mouth 2 times a day. 12/22/22 Historical ProviderMD lisinopriL-hydrochlorothiazide 20-25 mg tablet Take 1 tablet by mouth once daily. Historical Provider, lovastatin (Mevacor) 40 mg tablet Take 1 tablet (40 mg) by mouth once daily at bedtime. Historical Provider, metFORMIN, OSM, (Fortamet) 500 mg 24 hr tablet Take 1 tablet (500 mg) by mouth once daily in the evening. Take with meals. Do not crush, chew, or split. Historical Provider, primidone (Mysoline) 50 mg tablet Take 1 tablet (50 mg) by mouth once daily at bedtime. Take 1 tablet in am and 3 tablets in pm Historical ProviderMD ropinirole HCl (ROPINIROLE ORAL) Take 1 mg by mouth 2 times a day. Take 1mg in am and 1.5mg at night Historical Provider, traZODone (Desyrel) 100 mg tablet Take 1 tablet (100 mg) by mouth once daily at bedtime. Historical Provider, ciprofloxacin-dexamethasone (CiproDEX) otic suspension Administer 4 drops into the right ear 2 times a day. Patient not taking: Reported on 01/07/2023 01/07/23 02/17/23 Fercho Ham MD HYDROcodone-acetaminophen ([place]) 5-325 mg tablet Take by mouth. 02/17/23 Historical Provider, MD DAMIAN ROS: Constitutional: neg Neuro/Psych: neg Eyes: neg use of corrective lenses Ears: ear discharge (right ear- CSF) Nose: neg Mouth: neg Throat: neg Neck: neg Cardio: neg Respiratory: neg Endocrine: neg GI: neg : neg Musculoskeletal: neg Hematologic: neg Skin: neg Physical Exam Vitals reviewed. Constitutional: Appearance: Normal appearance. She is morbidly obese. HENT: Head: Normocephalic. Mouth/Throat: Mouth: Mucous membranes are dry. Eyes: Conjunctiva/sclera: Conjunctivae normal. Neck: Vascular: No carotid bruit. Cardiovascular: Rate and Rhythm: Normal rate and regular rhythm. Pulses: Normal pulses. Heart sounds: Normal heart sounds. Pulmonary: Effort: Pulmonary effort is normal. Breath sounds: Normal breath sounds. Abdominal: Palpations: Abdomen is soft. Tenderness: There is no abdominal tenderness. Musculoskeletal: General: Normal range of motion. Cervical back: Normal range of motion. Right lower leg: No edema. Left lower leg: No edema. Lymphadenopathy: Cervical: No cervical adenopathy. Skin: General: Skin is warm and dry. Capillary Refill: Capillary refill takes less than 2 seconds. Neurological: General: No focal deficit present. Mental Status: She is alert and oriented to person, place, and time. Psychiatric: Mood and Affect: Mood normal. Behavior: Behavior normal. Thought Content: Thought content normal. Judgment: Judgment normal. PAT AIRWAY: Airway: Mallampati:: II Neck ROM:: Full normal Visit Vitals BP 130/80 Pulse 95 Temp 35.8 C (96.5 F) DASI Risk Score Flowsheet Row Most Recent Value DASI SCORE 31.95 METS Score (Will be calculated only when all the questions are answered) 6.7 Caprini DVT Assessment Flowsheet Row Most Recent Value DVT Score 10 Current Status Major surgery planned, lasting over 3 hours History Prior major surgery Age 40-59 years BMI Greater than 50 (Venous stasis syndrome) Modified Frailty Index Flowsheet Row Most Recent Value Modified Frailty Index Calculator .1818 CHADS2 Stroke Risk Current as of 4 hours ago N/A 3 - 100%: High Risk 2 - 3%: Medium Risk 0 - 2%: Low Risk Last Change: N/A This score determines the patient's risk of having a stroke if the patient has atrial fibrillation. This score is not applicable to this patient. Components are not calculated. Revised Cardiac Risk Index Flowsheet Row Most Recent Value Revised Cardiac Risk Calculator 0 Apfel Simplified Score Flowsheet Row Most Recent Value Apfel Simplified Score Calculator 3 Risk Analysis Index Results This Encounter No data found in the last 1 encounters. Stop Bang Score Flowsheet Row Most Recent Value Do you snore loudly? 1 Do you often feel tired or fatigued after your sleep? 1 Has anyone ever observed you stop breathing in your sleep? 0 Do you have or are you being treated for high blood pressure? 1 Recent BMI (Calculated) 55.2 Is BMI greater than 35 kg/m2? 1=Yes Age older than 50 years old? 1=Yes Is your neck circumference greater than 17 inches (Male) or 16 inches (Female)? 1 Gender - Male 0=No STOP-BANG Total Score 6 Assessment and Plan: Neuro: anxiety, depression and bipolar disorder managed on buspar and cymbalta. essential tremor managed on primidone and lamictal. restless leg syndrome managed on ropinirole. The patient is at an increased risk for post operative delirium secondary to depression, polypharmacy and type and duration of surgery. Preoperative brain exercise educational handout provided to patient. The patient is at an increased risk for perioperative stroke secondary to HTN, HLD, DM, female sex and neuro surgery with general anesthesia and op time >2.5 hours. HEENT/Airway: CSF leak scheduled for surgery. Cardiovascular: HTN and HLD managed with diet and medications. Dobutamine stress echo with contrast on 12/25/2022 negative for stress-induced ischemia-normal dobutamine stress echo. Performed at [facility] in [facility]- found in care everywhere tab. No additional preoperative testing is currently indicated. METS are 6.7 RCRI 0 which is 3.9% 30 day risk of MACE (risk for cardiac , nonfatal myocardial infarction, and nonfactal cardiac arrest THEODORA score which indicates a 0.2% risk of intraoperative or 30-day postoperative MACE Pulmonary: SHASHA noncompliant with CPAP. Preoperative deep breathing educational handout provided to patient. ARISCAT: 26 points which is an intermediate risk of in-hospital post-op pulmonary complications PRODIGY: 5 points which is a low risk of post op opioid induced respiratory depression episodes STOP BAN points which is a high risk for moderate to severe SHASHA. Declined referral for sleep medicine. Renal: No diagnosis or significant findings on chart review or clinical presentation and evaluation, however, the patient is at increased risk of perioperative renal complications secondary to age> 56 and HTN. Preventative measures include preop BP control and hydration. Endocrine: No diagnosis or significant findings on chart review or clinical presentation and evaluation. Hematologic: negative or type diagnoses. Preoperative DVT educational handout provided to patient. Caprini Score: 10 points which is a highest risk of perioperative VTE Gastrointestinal: morbid obesity scheduled for bariatric surgery in 04/2023 EAT-10 score of 0- self-perceived oropharyngeal dysphagia scale (0-40) Apfel: 3 points 61% risk for post operative N/V Infectious disease: No diagnosis or significant findings on chart review or clinical presentation and evaluation. Musculoskeletal: No diagnosis or significant findings on chart review or clinical presentation and evaluation. Labs ordered Results for orders placed or performed in visit on 02/17/23 (from the past 96 hour(s)) CBC Result Value Ref Range WBC 8.5 4.4 - 11.3 x10*3/uL nRBC 0.0 0.0 - 0.0 /100 WBCs RBC 4.61 4.00 - 5.20 x10*6/uL Hemoglobin 13.3 12.0 - 16.0 g/dL Hematocrit 41.4 36.0 - 46.0 % MCV 90 80 - 100 fL MCH 28.9 26.0 - 34.0 pg MCHC 32.1 32.0 - 36.0 g/dL RDW 13.1 11.5 - 14.5 % Platelets 294 150 - 450 x10*3/uL Basic Metabolic Panel Result Value Ref Range Glucose 90 74 - 99 mg/dL Sodium 138 136 - 145 mmol/L Potassium 4.9 3.5 - 5.3 mmol/L Chloride 100 98 - 107 mmol/L Bicarbonate 27 21 - 32 mmol/L Anion Gap 16 10 - 20 mmol/L Urea Nitrogen 25 (H) 6 - 23 mg/dL Creatinine 0.62 0.50 - 1.05 mg/dL eGFR >90 >60 mL/min/1.73m*2 Calcium 9.7 8.6 - 10.6 mg/dL Coagulation Screen Result Value Ref Range Protime 12.8 9.8 - 12.8 seconds INR 1.1 0.9 - 1.1 aPTT 36 27 - 38 seconds Type And Screen Result Value Ref Range ABO TYPE O Rh TYPE POS ANTIBODY SCREEN NEG Hemoglobin A1C Result Value Ref Range Hemoglobin A1C 5.9 (H) see below % Estimated Average Glucose 123 Not Established mg/dL Staphylococcus aureus/MRSA colonization, Culture Specimen: Nares/Axilla/Groin; Swab Result Value Ref Range Staph/MRSA Screen Culture No Staphylococcus aureus isolated Urinalysis with Reflex Microscopic and Culture Result Value Ref Range Color, Urine Yellow Straw, Yellow Appearance, Urine Clear Clear Specific [place], Urine 1.019 1.005 - 1.035 pH, Urine 5.0 5.0, 5.5, 6.0, 6.5, 7.0, 7.5, 8.0 Protein, Urine NEGATIVE NEGATIVE mg/dL Glucose, Urine NEGATIVE NEGATIVE mg/dL Blood, Urine NEGATIVE NEGATIVE Ketones, Urine NEGATIVE NEGATIVE mg/dL Bilirubin, Urine NEGATIVE NEGATIVE Urobilinogen, Urine <2.0 <2.0 mg/dL Nitrite, Urine NEGATIVE NEGATIVE Leukocyte Esterase, Urine SMALL (1+) (A) NEGATIVE Extra Urine Gallagher Tube Result Value Ref Range Extra Tube Hold for add-ons. Microscopic Only, Urine Result Value Ref Range WBC, Urine 1-5 1-5, NONE /HPF RBC, Urine 1-2 NONE, 1-2, 3-5 /HPF Squamous Epithelial Cells, Urine 1-9 (SPARSE) Reference range not established. /HPF Urine Culture Specimen: Clean Catch/Voided; Urine Result Value Ref Range Urine Culture No significant growth [facility] Work Phone: 01-18-2023 History of Presen t illness Narrative Chief Complaint: NPV - evaluation of [facility] History Of Present Illness: Ya Womack is a 57-year-old female with a PMH significant for HTN, HLD, NIDDMT2, tremor, depression, who is following with Dr. Nye for right sided Eustachian tube dysfunction and chronic OME. Patient had been experiencing right -sided fullness with hearing loss since December 2021. She is s/p RM&T 10/06/22 with postoperative course significant for right sided effusion. Fluid was sent off for beta-2 transferrin and noted to be positive. Patient continues to have constant drainage from her right ear since myringotomy and tube placement. 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 Patient was evaluated by Dr. Ham for further management and was treated with ciprodex drops x 14 days and recommended for R [facility] for repair of CSF leak. Patient presents to clinic for NPV. Vital Signs BP 137/83, Pulse 88, RR 20 Physical Exam: Awake an dalert obese women Cranial nerves grosssly normnal No focal weaknss Gaiut ntormal Past Medical History: See HPI Past Surgical History: has no past surgical history on file. Outpatient Medications: Current Outpatient Medications Medication Instructions amLODIPine (NORVASC) 10 mg, oral, Daily RT busPIRone (BUSPAR) 10 mg, oral, 2 times daily ciprofloxacin-dexamethasone (CiproDEX) otic suspension 4 drops, Right Ear, 2 times daily DULoxetine (CYMBALTA) 120 mg, oral, Daily RT HYDROcodone-acetaminophen ([place]) 5-325 mg tablet oral hydrOXYzine pamoate (VISTARIL) 50 mg, oral, 3 times daily PRN ibuprofen 600 mg, oral, Every 6 hours PRN lamoTRIgine (LaMICtal) 100 mg tablet 1 tablet, oral, 2 times daily lisinopriL-hydrochlorothiazide 20-25 mg tablet 1 tablet, oral, Daily lovastatin (MEVACOR) 40 mg, oral, Nightly metFORMIN (OSM) (FORTAMET) 500 mg, oral, Daily with evening meal, Do not crush, chew, or split. primidone (MYSOLINE) 50 mg, oral, Nightly, Take 1 tablet in am and 3 tablets in pm ropinirole HCl (ROPINIROLE ORAL) 1 mg, oral, 2 times daily, Take 1mg in am and 1.5mg at night traZODone (DESYREL) 100 mg, oral, Nightly Relevant Results: I revoewed imaging of CT shows right tegmen defect Assessment/Plan The encounter diagnosis was CSF leak. Patient seen and examined and has right CSF otorrhea Natural history and treatment options discussed in detail. Given patient age, symptoms, etc. I recommend consideration for right sided middle fossa craniotomy and repair with mastoidectomy with Dr Ham possible lumbar drain Risks of treatment and alternatives discussed in detail (bleeding, infection, paralysis, stroke, , observation, etc.) and patient agrees to proceed as noted above. I also discussed that I perform overlapping surgical cases but would be present for all critical portions of the surgical procedure. documented in this encounter [facility] Work Phone: 10-08-2022 Evaluation note Encounter Date Diagnosis Assessment Notes Oct, Lower respiratory infection (e.g., bronchitis, pneumonia, pneumonitis, pulmonitis) (ICD-10 - J22) No testing performed today in office. Discussed diagnosis with patient in detail. Advised patient that cough may linger for 3 weeks. Will treat today with antibiotic. Reviewed allergies and recent antibiotic use. Advised to take medications as prescribed, reviewed side effects of steroid, take with food and plenty of water, finish entire course. Encouraged supportive care as directed, push fluids and rest, may use Tylenol as needed for fever/discomfor t, cool mist humidifier. May use Tessalon Perles as needed for cough, use inhaler as directed. Patient to follow up with PCP in 2-3 days. Immediate eval if worsening SOB, difficulty breathing, chest pain, dizziness, or other concerning symptoms. Patient verbalizes understanding and is agreeable to treatment plan [email or web address] Other 07-08-2023 Evaluation note* Encounter Date Diagnosis Assessment Notes Treatment Notes Treatment Clinical Notes Sep, Left foot pain (ICD-10 - M79.672) Sep, Acute gout of left foot, unspecified cause (ICD-10 - M10.9) Gout home care material was printed Drink plenty fluids, get plenty of rest. Continue home medications as prescribed. Take the prednisone as prescribed until gone. Follow-up with your family physician if no improvement in 2 to 3 days [email or web address] Other 05-13-2022 Evaluation note* Encounter Date Diagnosis Assessment Notes Treatment Notes Treatment Clinical Notes July, Acute right ankle pain (ICD-10 - M25.571) July, Closed avulsion fracture of right ankle, initial encounter (ICD-10 - S82.891A) Wear the walking boot when up and about. You may walk in this ankle as long as you have the walking boot on. Take Tylenol, Aleve, or ibuprofen for pain. Elevate your ankle is much as possible. Follow-up with your family physician for reevaluation next week. July, Other Avulsion fractu re home care material was printed [email or web address] Other Evaluation noteNo assessment information available [facility] Work Phone: Evaluation note* Diagnosis CSF leak- Primary Other specified disorder of nervous system documented in this encounter [facility] Work Phone: Evaluation note* Diagnosis CSF leak- Primary Other specified disorder of nervous system CSF leak Other specified disorder of nervous system Post-op pain Other acute postoperative pain Bipolar disorder (CMS/HCC) Bipolar disorder, unspecified Depression Depressive disorder, not elsewhere classified Anxiety Anxiety state, unspecified SHASHA (obstructive sleep apnea) Obstructive sleep apnea (adult) (pediatric) HTN (hypertension) Unspecified essential hypertension Hyperlipidemia Other and unspecified hyperlipidemia Obesity Obesity, unspecified documented in this encounter [facility] Work Phone: Evaluation note* Diagnosis 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 documented in this encounter [facility] Work Phone: Evaluation note* Diagnosis Onset Date Resolution Status [facility] Work Phone: Evaluation note* Diagnosis Other eczema- Primary Bipolar disorder, current episode mixed, mild (CMS-HCC) documented in this encounter [facility] general Narrative - Reported* Type Description Date Medical History hypertension Medical History histoplasmosis Surgical History , cholecystectomy, Surgical History hysterectomy 1993 Hospitalization History [facility] general Narrative - Reported* Type Description Date Medical History hypertension Medical History histoplasmosis Medical History ANXIETY AND DEPRESSION Surgical History , cholecystectomy, Surgical History hysterectomy 1993 Hospitalization History [facility] Other [facility] general Narrative - Reported* Type Description Date Medical History hypertension Medical History histoplasmosis Medical History ANXIETY AND DEPRESSION Surgical History , cholecystectomy, Surgical History hysterectomy 1993 Surgical History tube in right ear 10/2022 [facility] Other Instructions* Attachments The following attachments cannot be sent through Care Everywhere. * Eczema (atopic dermatitis) (Hungarian) [facility] Summary Purpose Family History No Family History Records Found Relationship Condition Age at Onset Recorded Date/T penelope father Chronic obstructive pulmonary disease Unk nown Relationship Condition Age at Onset Recorded Date/T penelope father Chronic obstructive pulmonary disease Unk nown brother Malignant neoplasm Unknown Unknown family member Unknown Not Specified Unknown Motor vehicle accident Unknown sister Heart disease Unknown Advance Directives No Advanced Directives Records Found Advance Directive Response Recorded Date/ Time Advance Directives No January 9:02pm Latest Code Status on File Code Status Date Activated Date Inactivated Comments Full Code 02/22/2023 12:56 PM Question Answer Comments Plan of Care: Code Status Discussion Completed Decision Maker: Patient Latest Code Status on File Code Status Date Activated Date Inactivated Comments Full Code 02/22/2023 12:56 PM Question Answer Comments Plan of Care: Code Status Discussion Completed Decision Maker: Patient Advance Directive Response Recorded Date/ Time Advance Directives No January 8:02pm Latest Code Status on File Code Status Date Activated Date Inactivated Comments Full Code 01/12/2020 12:09 AM 01/12/2020 7:07 PM Chief Complaint and Reason for Visit Chief Complaint BH Chief Complaint left gout Reason for Visit Gout Additional Source Comments INFORMATION SOURCE (unrecogn ized section and content) DATE CREATED AUTHOR 03/16/2019 [facility] DATE CREATED AUTHOR AUTHOR'S ORGANIZ ATION 05/02/2021 [facility] DATE CREATED AUTHOR AUTHOR'S ORGANIZ ATION 12/16/2021 [facility] DATE CREATED AUTHOR AUTHOR'S ORGANIZ ATION 01/08/2023 [facility] DATE CREATED AUTHOR AUTHOR'S ORGANIZ ATION 03/04/2023 [facility] DATE CREATED AUTHOR AUTHOR'S ORGANIZ ATION 03/21/[address] [facility] DATE CREATED AUTHOR AUTHOR'S ORGANIZ ATION 03/25/2023 [facility] DATE CREATED AUTHOR AUTHOR'S ORGANIZ ATION 05/19/2023 [facility] DATE CREATED AUTHOR AUTHOR'S ORGANIZ ATION 05/26/2023 [facility] EPIC REASON FOR VISIT (unrecogniz ed section and content) Specialty Diagnoses / Procedures Referred By Jeffry t Referred To Contact Diagnoses CSF leak CSF leak [G96.00] Procedures TN RESCJ/EXC LES ITPRL FOSSA SPACE APEX IDRL W/RPR TN RESCJ/EXC LES ITPRL FOSSA SPACE APEX IDRL W/RPR TN STRTCTC CPTR ASSTD PX CRANIAL INTRADURAL TN MICROSURG TQS REQ USE OPERATING MICROSCOPE TN INFRATEMPO MID CRANIAL FOSSA W/WO DCOMPR&/MOBI TN IONM 1 ON 1 IN OR W/ATTENDANCE EACH 15 MINUTES Craniotomy Middle Fossa with mastodectomy Craniotomy Middle [place] [address] Department [place] [address] [facility] Suzanne Alarcon [address] [place] [address] Referral ID Status Reason Start Date Expiration Date Visits Re quested Visits Authorized [id number] 1 1 Reason Comments Post-op Visit Stitch removal Reason Comments Rash X 2 months Care Teams (unrecognized sec tion and content) Team Status: Active Member Role Status Dates Harlan Almeida DO Primary Care Provider Active Team Status: Inactive Member Role Status Dates Harlan Almeida DO Primary Care Provider Active Start: April 23, 2023 End: April 23, 2023 DANA Shook Attending Provider Active S tart: April 23, 2023 End: April 23, 2023 Team Status: Active Member Role Status Dates Harlan Almeida DO Primary Care Provider Active Xena Longo MD Attending Provider Active Team Status: Inactive Member Role Status Dates Harlan Almeida DO Primary Care Provider Active DANA Shook Attending Provider Active Mail Processing Clerk Relationship Specialty Start Date End Date Harlan Almeida DO [address], [place] [address] PCP - General Family Medicine 12/09/22 Mail Processing Clerk Relationship Specialty Start Date End Date Harlan Almeida DO [address], [place] [address] PCP - General Family Medicine 12/09/22 Mail Processing Clerk Relationship Specialty Start Date End Date Harlan Almeiad DO [address], [place] [address] PCP - General Family Medicine 12/09/22 Mail Processing Clerk Relationship Specialty Start Date End Date Harlan Almeida DO [address] [facility], [place] [address] PCP - General Family Medicine 01/11/20 Goals (unrecognized section and content) Goals may be documented in a n alternate section Scheduled Active and Recently Administ ered Medications (unrecognized section and content) Medication Order 02/23/2023 02/24/2023 02/25/2023 acetaminophen (Tylenol) tablet 650 mg 650 mg, oral, Every 6 hours scheduled, First dose on Wed02/22/23 at 1300, If ordered PRN for pain, nurse is permitted to administer this medication for higher pain scores based on patient preference? Yes 0031 (Given - Provider: Ron Marrero RN)0604 (Given - Provider: Ron Marrero RN)1219 (Given - Provider: Neptali Robbins RN)1806 (Given - Provider: Neptali Robbins RN) 0009 (Given - Provider: Janett Zhou RN)0542 (MAR Hold - Provider: Automatic Transfer Provider - Reason: Unreviewed Transfer Orders)0600 (Not Given - Provider: Chanda Keita RN - Reason: Other - Comment: Schedule conflict. dose given by previous nurse)0653 (MAR Unhold - Provider: Gilberto Castellon MD)0659 (Not Given - Provider: Chanda Keita RN - Reason: Other - Comment: given by previous nurse)1252 (Given - Provider: Giuseppe Thompson LPN)1700 (Not Given - Provider: Chanda Keita RN - Reason: Patient/family refused)1807 (Given - Provider: Chanda Keita RN - Comment: pt initially refused but wanted it now) 0000 (Not Given - Provider: Laverne Shook RN - Reason: Patient/family refused)0613 (Given - Provider: Laverne Shook, SOLITARIO)1200 (Given - Provider: Daily Mortensen RN)1800 (Due) amLODIPine (Norvasc) tablet 10 mg 10 mg, oral, Daily RT, First dose on Wed02/22/23 at 1300 0700 (Not Given - Provider: Ron Marrero RN - Reason: Contraindicated - Comment: soft bps) 0542 (MAY Hold - Provider: Automatic Transfer Provider - Reason: Unreviewed Transfer Orders)0653 (MAY Unhold - Provider: Gilberto Castellon MD)0947 (Given - Provider: Giuseppe Thompson LPN) 0613 (Given - Provider: Laverne Shook, SOLITARIO) atorvastatin (Lipitor) tablet 10 mg 10 mg, oral, Nightly, First dose on Wed02/22/23 at 2100 2037 (Given - Provider: Janett Zhou RN) 0542 (MAY Hold - Provider: Automatic Transfer Provider - Reason: Unreviewed Transfer Orders)0653 (MAY Unhold - Provider: Gilberto Castellon MD)2015 (Given - Provider: Laverne Shook RN) 2100 (Due) busPIRone (Buspar) tablet 10 mg 10 mg, oral, 2 times daily, First dose on Wed02/22/23 at 1300 0817 (Given - Provider: Neptali Robbins RN)203 (Given - Provider: Janett Zhou RN) 0542 (MAY Hold - Provider: Automatic Transfer Provider - Reason: Unreviewed Transfer Orders)0653 (MAY Unhold - Provider: Gilberto Castellon MD)0950 (Given - Provider: Giuseppe Thompson LPN)2014 (Given - Provider: Laverne Shook RN) 0844 (Given - Provider: Daily Mortensen RN)2100 (Due) ceFAZolin in dextrose (iso-os) (Ancef) IVPB 2 g 2 g, intravenous, Administer over 30 Minutes, Every 8 hours, First dose on Wed02/23/23 at 0715, For 3 days, premix bag, Dosing of this medication varies based on severity of illness. Does this patient have sepsis or concern for sepsis (probable or documented infection plus systemic manifestations of infection)? No, Suspected Indication (Select all that apply): INTERVENTION ANALYST/Meningoencephalitis, Type of Therapy: Empiric 0907 (New Bag - Provider: Neptali Robbins RN)0937 (Stopped - Provider: Neptali Robbins RN)1454 (New Bag - Provider: Neptali Robbins RN)1524 (Stopped - Provider: Neptali Robbins RN) 0009 (New Bag - Provider: Janett Zhou RN)0039 (Stopped - Provider: Janett Zhou RN)0951 (New Bag - Provider: Giuseppe Thompson LPN)1021 (Stopped - Provider: Chanda Keita RN)1640 (New Bag - Provider: Chanda Keita RN)1710 (Stopped - Provider: Chanda Keita RN)2357 (New Bag - Provider: Laverne Shook RN) 0027 (Stopped - Provider: Laverne Shook RN)0616 (New Bag - Provider: Laverne Shook RN)0646 (Stopped - Provider: Laverne Shook, RN)1552 (New Bag - Provider: Daily Mortensen, SOLITARIO)1622 (Stopped - Provider: Daily Mortensen RN)2315 (Due) DULoxetine (Cymbalta) DR capsule 120 mg 120 mg, oral, Daily RT, First dose on Wed02/22/23 at 1400, Do not crush or chew. 0817 (Given - Provider: Neptali Robbins RN) 0542 (MAY Hold - Provider: Automatic Transfer Provider - Reason: Unreviewed Transfer Orders)0653 (MAY Unhold - Provider: Gilberto Castellon MD)0947 (Given - Provider: Giuseppe Thompson LPN) 0614 (Given - Provider: Laverne Shook RN) heparin (porcine) injection 7,500 Units 7,500 Units, subcutaneous, Every 8 hours scheduled, First dose on Wed02/24/23 at 0600 0542 (MAY Hold - Provider: Automatic Transfer Provider - Reason: Unreviewed Transfer Orders)0600 (Not Given - Provider: Chanda Keita RN - Reason: Other - Comment: schedule conflict dose due at 0800)0653 (MAY Unhold - Provider: Gilberto Castellon MD)0953 (Given - Provider: Giuseppe Thompson LPN)1640 (Given - Provider: Chanda Keita RN)2358 (Given - Provider: Laverne Shook RN) 0613 (Given - Provider: Laverne Shook RN)1400 (Not Given - Provider: Daily Mortensen RN - Reason: Patient/family refused - Comment: pt being discharged)2200 (Due) lamoTRIgine (LaMICtal) tablet 100 mg 100 mg, oral, 2 times daily, First dose on Wed02/22/23 at 1430 0817 (Given - Provider: Neptali Robbins RN)2037 (Given - Provider: Janett Zhou RN) 0542 (MAR Hold - Provider: Automatic Transfer Provider - Reason: Unreviewed Transfer Orders)0653 (MAR Unhold - Provider: Gilberto Castellon MD)0949 (Given - Provider: Giuseppe Thompson LPN)2015 (Given - Provider: Laverne Shook RN) 0844 (Given - Provider: Daily Mortensen, SOLITARIO)2100 (Due) levETIRAcetam (Keppra) tablet 500 mg 500 mg, oral, 2 times daily, First dose on Wed02/22/23 at 1300, For 7 days 0817 (Given - Provider: Neptali Robbins RN)2036 (Given - Provider: Janett Zhou RN) 0542 (MAR Hold - Provider: Automatic Transfer Provider - Reason: Unreviewed Transfer Orders)0653 (MAR Unhold - Provider: Gilberto Castellon MD)0950 (Given - Provider: Giuseppe Thompson LPN)2015 (Given - Provider: Laverne Shook RN) 0844 (Given - Provider: Daily Mortensen RN)2100 (Due) lisinopril 20 mg, hydroCHLOROthiazide 25 mg for Zestoretic/Prinizide oral, Daily, First dose on Wed02/22/23 at 1430, Give both components for Zestoretic/Prinizide product 0900 (Not Given - Provider: Neptali Robbins RN - Reason: Other - Comment: soft BP) 0542 (MAR Hold - Provider: Automatic Transfer Provider - Reason: Unreviewed Transfer Orders)0653 (MAR Unhold - Provider: Gilberto Castellon MD)0949 (Given - Provider: Giuseppe Thompson LPN) 0844 (Given - Provider: Daily Mortensen RN) magnesium sulfate IV 2 g (COMPLETED) 2 g, intravenous, at 25 mL/hr, Administer over 2 Hours, Once, On Wed02/23/23 at 0430, For 1 dose 0448 (New Bag - Provider: Ron Marrero RN)0648 (Stopped - Provider: Ron Marrero RN) primidone (Mysoline) tablet 150 mg 150 mg, oral, Nightly, First dose on Wed02/22/23 at 2100 2037 (Given - Provider: Janett Zhou RN) 0542 (MAR Hold - Provider: Automatic Transfer Provider - Reason: Unreviewed Transfer Orders)0653 (MAR Unhold - Provider: Gilberto Castellon MD)2015 (Given - Provider: Laverne Shook RN) 2099 (Due) primidone (Mysoline) tablet 50 mg 50 mg (50 mg/day), oral, Every morning, First dose on Wed02/22/23 at 1430 0817 (Given - Provider: Neptali Robbins RN) 0542 (MAR Hold - Provider: Automatic Transfer Provider - Reason: Unreviewed Transfer Orders)0653 (MAR Unhold - Provider: Gilberto Castellon MD)0950 (Given - Provider: Giuseppe Thompson LPN) 0844 (Given - Provider: Daily Mortensen RN) rOPINIRole (Requip) tablet 1 mg 1 mg, oral, Every 12 hours, First dose on Wed02/22/23 at 1400 1219 (Given - Provider: Neptali Robbins RN)2037 (Given - Provider: Janett Zhou RN) 0542 (MAR Hold - Provider: Automatic Transfer Provider - Reason: Unreviewed Transfer Orders)0653 (MAR Unhold - Provider: Gilbetro Castellon MD)0952 (Given - Provider: Giuseppe Thompson LPN)2014 (Given - Provider: Laverne Shook RN) 0844 (Given - Provider: Daily Mortensen RN)2099 (Due - Provider: Martin BahenaD) sennosides-docusate sodium (Shirlene-Colace) 8.6-50 mg per tablet 2 tablet 2 tablet, oral, 2 times daily, First dose on Wed02/22/23 at 1430, Bowel Regimen - for prevention of constipation Hold for loose stools 0817 (Given - Provider: Neptali Robbins RN)2037 (Given - Provider: Janett Zhou RN) 0542 (MAR Hold - Provider: Automatic Transfer Provider - Reason: Unreviewed Transfer Orders)0653 (MAR Unhold - Provider: Gilberto Castellon MD)0952 (Given - Provider: Giuseppe Thompson LPN)2015 (Given - Provider: Laverne Shook, SOLITARIO) 0900 (Not Given - Provider: Daily Mortensen RN - Reason: Patient/family refused)2100 (Due) sodium chloride 0.9 % bolus 1,000 mL (COMPLETED) 1,000 mL, intravenous, at 500 mL/hr, Administer over 2 Hours, Once, On Wed02/23/23 at 0430, For 1 dose 0446 (New Bag - Provider: Ron Marrero RN)0646 (Stopped - Provider: Ron Marrero RN) sodium chloride 0.9 % bolus 1,000 mL (COMPLETED) 1,000 mL, intravenous, at 1,000 mL/hr, Administer over 1 Hours, Once, On Wed02/23/23 at 0845, For 1 dose 0907 (New Bag - Provider: Neptali Robbins RN)1007 (Stopped - Provider: Neptali Robbins RN) traZODone (Desyrel) tablet 100 mg 100 mg, oral, Nightly, First dose on Wed02/22/23 at 2100 2036 (Given - Provider: Janett Zhou RN) 0542 (MAY Hold - Provider: Automatic Transfer Provider - Reason: Unreviewed Transfer Orders)0653 (MAR Unhold - Provider: Gilberto Castellon MD)2015 (Given - Provider: Laverne Shook, SOLITARIO) 2100 (Due) PRN Medication Order 02/23/2023 02/24/2023 02/25/2023 HYDROmorphone (Dilaudid) injection 0.2 mg (CANCELED) 0.2 mg, intravenous, Every 3 hours PRN, pain breakthrough, breakthrough pain - 2nd line, use oral products first if ordered, Starting on Wed02/22/23 at 1256, If oral and IV narcotics ordered, use oral first and only use IV if oral is ineffective or cannot take oral. Do NOT give oral and IV within one hour of each other unless specifically ordered. 0031 (Given - Provider: Ron Marrero RN) 0542 (MAY Hold - Provider: Automatic Transfer Provider - Reason: Unreviewed Transfer Orders)0653 (MAR Unhold - Provider: Gilberto Castellon MD) hydrOXYzine pamoate (Vistaril) capsule 50 mg 50 mg, oral, 3 times daily PRN, itching, Starting on Wed02/22/23 at 1256 0542 ([facility] Hold - Provider: Automatic Transfer Provider - Reason: Unreviewed Transfer Orders)0653 ([facility] Unhold - Provider: Gilberto Castellon MD) naloxone (Narcan) injection 0.2 mg 0.2 mg, intravenous, Every 5 min PRN, respiratory depression, Starting on Wed02/22/23 at 1256, If respiratory rate is less than 8 breaths/minute or patient is difficult to arouse stop any narcotics and contact physician. Administer slow IV push. Repeat as ordered until patient's respiratory rate is greater than 12 breaths/minute. 0542 ([facility] Hold - Provider: Automatic Transfer Provider - Reason: Unreviewed Transfer Orders)0653 ([facility] Unhold - Provider: Gilberto Castellon MD) ondansetron (Zofran) injection 4 mg(Linked Group 1) 4 mg, intravenous, Every 8 hours PRN, nausea/vomiting, first line, Starting on Wed02/22/23 at 1256, 1st Line. Give IV if patient is unable to take orally. If inadequate response within 60 minutes, proceed to next-line agent for same PRN reason or contact provider if no further options ordered. When administering via IV Push, administer over 3-5 minutes. 0542 ([facility] Hold - Provider: Automatic Transfer Provider - Reason: Unreviewed Transfer Orders)0653 ([facility] Unhold - Provider: Giblerto Castellon MD) ondansetron (Zofran) tablet 4 mg(Linked Group 1) 4 mg, oral, Every 8 hours PRN, nausea/vomiting, first line, Starting on Wed02/22/23 at 1256, 1st Line. Use oral route first, if possible. If inadequate response within 60 minutes, proceed to next-line agent for same PRN reason or contact provider if no further options ordered. 0542 ([facility] Hold - Provider: Automatic Transfer Provider - Reason: Unreviewed Transfer Orders)0653 ([facility] Unhold - Provider: Gilberto Castellon MD) oxyCODONE (Roxicodone) immediate release tablet 10 mg 10 mg, oral, Every 4 hours PRN, pain severe (7-10), first line, Starting on Wed02/22/23 at 1256, May be given with acetaminophen tablet., If ordered PRN for pain, nurse is permitted to administer this medication for higher pain scores based on patient preference? Yes 040 (Not Given - Provider: Ron Marrero RN - Reason: Contraindicated - Comment: soft bp)2036 (Given - Provider: Janett Zhou RN) 0542 ([facility] Hold - Provider: Automatic Transfer Provider - Reason: Unreviewed Transfer Orders)0653 ([facility] Unhold - Provider: Gilberto Castellon MD) oxyCODONE (Roxicodone) immediate release tablet 5 mg 5 mg, oral, Every 4 hours PRN, pain moderate (4-6), first line, Starting on Wed02/22/23 at 1256, May be given with acetaminophen tablet., If ordered PRN for pain, nurse is permitted to administer this medication for higher pain scores based on patient preference? Yes 0945 (Given - Provider: Neptali Robbins RN) 0542 ([facility] Hold - Provider: Automatic Transfer Provider - Reason: Unreviewed Transfer Orders)0653 ([facility] Unhold - Provider: Gilberto Castellon MD)0952 (Given - Provider: Giuseppe Thompson LPN)2014 (Given - Provider: Laverne Shook RN)2358 (Given - Provider: Laverne Shook RN) 050 (Given - Provider: Laverne Shook RN) Linked Groups Order Group 1: ondansetron (Zofran) tablet 4 mgJump to med 4 mg, oral, Every 8 hours PRN, nausea/vomiting, first line, Starting on Wed02/22/23 at 1256
1st Line. Use oral route first, if possible. If inadequate response within 60 minutes, proceed to next-line agent for same PRN reason or contact provider if no further options ordered.
Or ondansetron (Zofran) injection 4 mgJump to med 4 mg, intravenous, Every 8 hours PRN, nausea/vomiting, first line, Starting on Wed02/22/23 at 1256
1st Line. Give IV if patient is unable to take orally. If inadequate response within 60 minutes, proceed to next-line agent for same PRN reason or contact provider if no further options ordered. When administering via IV Push, administer over 3-5 minutes.
FOR RECORDS PERTAINING TO PATIENTS WHO ARE OR HAVE BEEN ENROLLED IN A CHEMICAL DEPENDENCY/SUBSTANCEABUSE PROGRAM, SOME INFORMATION MAY BE OMITTED. This clinical summary was aggregated from multiple sources. Caution should be exercised in using it in the provision of clinical care. This summary normalizes information from multiple sources, and as a consequence, information in this document may materially change the coding, format and clinical context of patient data. In addition, data may be omitted in some cases. CLINICAL DECISIONS SHOULD BE BASED ON THE PRIMARY CLINICAL RECORDS. [facility]. provides no warranty or guarantee of the accuracy or completeness of information in this document.
[2023-05-27 08:56] LABS: Basophils Percent Auto 0.3 % (0.2-2.0); Eosinophils Absolute Auto 0.2 10^3/uL (0.0-0.7); Eosinophils Percent Auto 2.5 % (0.9-7.0); Hematocrit 43.6 % (36.0-48.0); Hemoglobin 13.9 g/dL (12.0-16.0); Immature Granulocytes Abs Auto 0.01 10^3/uL (0.00-0.03); Immature Granulocytes Pct Auto 0.2 % (0.0-0.5); Lymphocytes Absolute Auto 1.5 10^3/uL (1.2-3.8); Mean Corpuscular HGB Conc 31.9 g/dL (29.9-35.2); Mean Platelet Volume 9.7 fL (9.5-13.5); Monocytes Absolute Auto 0.4 10^3/uL (0.3-0.8); Neutrophils Absolute Auto 4.2 10^3/uL (1.4-6.5); Platelet Count 282 10^3/uL (150-450); Red Blood Count 4.79 10^6/uL (4.20-5.40); Red Cell Distribution Width 14.3 % (11.0-15.0); White Blood Count 6.3 10^3/uL (4.0-11.0)
[2023-05-27 11:08] LABS: Percent Iron Saturation 25.3 %
[2023-05-27 13:21] LABS: Alanine Aminotransferase 44 U/L (14-59); Albumin Globulin Ratio 0.8; Albumin Level 3.3 g/dL (3.4-5.0); Alkaline Phosphatase 68 U/L (46-116); Anion Gap 13.2; Aspartate Amino Transferase 30 U/L (15-37); BUN Creatinine Ratio 13.2; Bilirubin Total 0.5 mg/dL (0.2-1.0); Calcium 9.4 mg/dL (8.5-10.1); Carbon Dioxide 28.7 mmol/L (21.0-32.0); Chloride 102 mmol/L (98-107); Estimated GFR (African America >60 (>=60); Estimated GFR (Non-African Ame >60 (>=60); Globulin 4.4 g/dL; Glucose 104 mg/dL (74-106); Magnesium 1.4 mg/dL (1.8-2.4); Phosphorus 3.5 mg/dL (2.6-4.7); Potassium 3.9 mmol/L (3.5-5.1); Sodium 140 mmol/L (136-145); Total Protein 7.7 g/dL (6.4-8.2)
[2023-06-01 13:12] LABS: Vitamin B1 (Thiamine), Blood 126.8 nmol/L (66.5-200.0)
== END 2023-05-27 08:34 | disposition home or self-care (01) ==
LOC: LAB 08:38
PROVIDERS: PCP Family Medicine
DX: I10 Essential (primary) hypertension (principal); Z98.84 Bariatric surgery status; E11.9 Type 2 diabetes mellitus without complications
CPT/HCPCS: 36415; 80053; 82306; 82607; 82728; 82746; 83540; 83550; 83735; 84100; 84425; 85025

== ENCOUNTER 2023-09-27 07:54 | Outpatient (OUT) | payer MEDICARE, SELFPAY ==
[2023-09-27 09:05] LABS: Basophils Percent Auto 0.4 % (0.2-2.0); Eosinophils Absolute Auto 0.2 10^3/uL (0.0-0.7); Eosinophils Percent Auto 3.1 % (0.9-7.0); Hematocrit 41.7 % (36.0-48.0); Hemoglobin 13.5 g/dL (12.0-16.0); Immature Granulocytes Abs Auto 0.01 10^3/uL (0.00-0.03); Immature Granulocytes Pct Auto 0.1 % (0.0-0.5); Lymphocytes Absolute Auto 2.1 10^3/uL (1.2-3.8); Lymphocytes Percent Auto 31.4 % (20.5-60.0); Mean Corpuscular HGB Conc 32.4 g/dL (29.9-35.2); Mean Corpuscular Hemoglobin 29.8 pg (26.7-34.0); Mean Corpuscular Volume 92.1 fL (81.0-99.0); Mean Platelet Volume 9.5 fL (9.5-13.5); Monocytes Absolute Auto 0.5 10^3/uL (0.3-0.8); Monocytes Percent Auto 7.7 % (1.7-12.0); Neutrophils Absolute Auto 3.9 10^3/uL (1.4-6.5); Neutrophils Percent Auto 57.3 % (43.0-75.0); Platelet Count 277 10^3/uL (150-450); Red Blood Count 4.53 10^6/uL (4.20-5.40); Red Cell Distribution Width 12.6 % (11.0-15.0); White Blood Count 6.7 10^3/uL (4.0-11.0)
[2023-09-27 10:16] LABS: Alanine Aminotransferase 19 U/L (14-59); Albumin Globulin Ratio 0.9; Albumin Level 3.4 g/dL (3.4-5.0); Alkaline Phosphatase 73 U/L (46-116); Anion Gap 11.6; Aspartate Amino Transferase 18 U/L (15-37); Bilirubin Total 0.4 mg/dL (0.2-1.0); Calcium 9.3 mg/dL (8.5-10.1); Carbon Dioxide 31.8 mmol/L (21.0-32.0); Chloride 101 mmol/L (98-107); Estimated GFR (African America >60 (>=60); Estimated GFR (Non-African Ame >60 (>=60); Glucose 89 mg/dL (74-106); Magnesium 1.8 mg/dL (1.8-2.4); Phosphorus 3.8 mg/dL (2.6-4.7); Potassium 4.4 mmol/L (3.5-5.1); Sodium 140 mmol/L (136-145); Total Protein 7.4 g/dL (6.4-8.2)
[2023-09-27 10:20] LABS: Percent Iron Saturation 24.3 %
[2023-09-30 00:07] LABS: Vitamin B1 (Thiamine), Blood 126.5 nmol/L (66.5-200.0)
== END 2023-09-27 07:55 | disposition home or self-care (01) ==
LOC: LAB 07:56
PROVIDERS: PCP Family Medicine; Visit Provider Nurse Practitioner Family
DX: I10 Essential (primary) hypertension (principal); E11.9 Type 2 diabetes mellitus without complications; Z98.84 Bariatric surgery status
CPT/HCPCS: 36415; 80053; 82306; 82607; 82728; 82746; 83540; 83550; 83735; 84100; 84425; 85025

== ENCOUNTER 2023-12-21 11:19 | Outpatient (OUT) | payer MEDICARE, SELFPAY ==
--- OUTSIDE RECORDS SUMMARY | 2023-12-21 11:40 | XMS_ITS | CCD ---
Author Organization [facility] Care Team Providers Care Manager Of Case Management Name Role Phone Carol Mckinney Unavailable ANNMARIE, DR OLAF Agudelo Admitting Unavailable KUNS, DR OLAF Agudelo Attending Unavailable FURLONG, DR HARLAN Esposito Primary Care Unavailable KUNS, DR OLAF Agudelo Consulting Unavailable ADARSH, DR WATTS Admitting Unavailable ADARSH, DR WATTS Attending Unavailable FURLONG, DR HARLAN Esposito Primary Care Unavailable KUNS, DR OLAF Agudelo Admitting Unavailable KUNS, DR OLAF Agudelo Attending Unavailable FURLONG, DR HARLAN Esposito Primary Care Unavailable KUNS, DR OLAF Agudelo Consulting Unavailable FURLONG, DR HARLAN Esposito Admitting Unavailable FURLONG, DR HARLAN Esposito Attending Unavailable FURLONG, DR HARLAN Esposito Primary Care Unavailable FURLONG, DR HARLAN Esposito Consulting Unavailable NEELYVILLE, DR GINI Chacon Consulting Unavailable DO Harlan Almeida Primary Care Provider MD Xena Longo Attending Provider DANA Mckinney Attending Provider Harmony Khan Unavailable Harlan Almeida DO Primary Care Provider FERCHO HAM Attending Unavailable HARLAN ALMEIDA Primary Care Unavailab le Harlan Almeida DO Primary Care Provider QUIN CANDELARIO Attending Unavailable HARLAN ALMEIDA Primary Care Unavailab FERCHO Mantilla Attending Unavailable HARLAN ALMEIDA Primary Care Unavailab FERCHO Mantilla Attending Unavailable HARLAN ALMEIDA Primary Care Unavailab FERCHO Mantilla Attending Unavailable ROSSY ALMEIDANIS BROOKLYNN Primary Care Unavailab Deepak Verduzco Admitting Unavailab Deeapk Verduzco Attending Unavailab le Furlong, Harlan Primary Care Unavailable BRANDON SOTELO Attending Unavailable FURLONG, HARLAN G Referring Unavailable FURLONG, HARLAN G Primary Care Unavailable OLAF ANGUIANO Attending Unavailable FURLONG, HARLAN G Referring Unavailable FURLONG, HARLAN G Primary Care Unavailable FURLONG, HARLAN G Attending Unavailable FURLONG, HARLAN G Referring Unavailable FURLONG, HARLAN G Primary Care Unavailable OLAF ANGUIANO Attending Unavailable FURLONG, HARLAN G Referring Unavailable FURLONG, HARLAN G Primary Care Unavailable FURLONG, HARLAN G Attending Unavailable FURLONG, HARLAN G Referring Unavailable FURLONG, HARLAN G Primary Care Unavailable ALEKS HINTON Attending Unavailable MEÑO GOMEZ Attending Unavailable PATRICIA, MEÑO Dominguez Referring Unavailable MEÑO GOMEZ Attending Unavailable CLAYTON HAWLEY Attending Unavailab le FURLONG, HARLAN BROOKLYNN Primary Care Unavailab CLAYTON Luke Admitting Unavailab le JENNIFERLONG, HARLAN BROOKLYNN Primary Care Unavailab le FURLONG, HARLAN BROOKLYNN Referring Unavailab FERCHO Mantilla Attending Unavailable FURLONG, HARLAN BROOKLYNN Primary Care Unavailab le FURLONG, HARLAN BROOKLYNN Primary Care Unavailab le Medications Current Medications Medication Drug Class(es) Dates [...] (1 source) Opioid Agonist HYDROcodone-acet am inophen ([place]) 5-325 mg tablet Take by mouth. 0 Active [id number] 200 actuat albuterol 0.09 mg/actuat metered dose [...] Active docusate sodium 50 mg / sennosides, penitent[facility] 8.6 mg oral tablet (2 sources) Start: 02-25-2023 End: 03-04-2023 take 1 tablet by mouth once daily sennosides-docusa te sodium (Shirlene-Colace) 8.6-50 mg tablet Indications: CSF leak Take 1 tablet by mouth once daily for 7 days. 7 tablet 0 02/25/2023 03/04/2023 Active Start: 02-22-2023 take 2 tablets by mo ut twice daily 2 tablet, oral, 2 times [...] morning. 0 Active take 1 capsule by mo uth every twelve hours DULoxetine HCl 60 MG 1 capsule Orally Twice a day Active ergocalciferol 1.25 mg oral capsule (6 sources) Provitamin D2 Compound Start: 07-22-2020 take 1250 ug by mouth every week Ergocalciferol (Vitamin D2) Active 1250 MCG PO Q7D@0900 July 21, 2020 11:00pm Start: 05-20-2020 End: [...] take 1 tablet by mouth once daily Lisinopril-[place] chlorothiazide Active 1 TAB PO Daily June [...] 2020 6:16am take 1 capsule by mo uth three times daily for anxiety hydrOXYzine (VISTARIL) 50 mg capsule hydroxyzine pamoate 50 mg capsule take 1 capsule by mouth three times a day if needed for anxiety 0 Active take 1 capsule by mo uth every eight hours Vistaril 25 MG 1 [...] Prednisone Active 20 MG PO Twice daily 12 10April 23, 2023 12:00am Start: 09-12-2022 take 1 [...] hours, First dose on Wed02/22/23 at 1400 Start: 06-16-2020 End: 07-22-2020 take 1 mg by mouth twice daily Ropinirole Active 1 MG PO Twice daily 28 July 22, 2020 8:07am Start: 05-03-2020 End: [...] first if ordered, Starting on Wed02/22/23 at 1256 If oral and IV narcotics [...] take 600 mg by mouth at bedtime [place] Carbonate Discontinued 600 MG PO Bedtime 60 February 08, 2020 12:00am April 01, 2020 6:16am Start: 02-03-2020 End: 02-08-2020 take 300 mg by mouth twice daily [place] Carbonate Discontinued 300 MG PO Twice daily [...] Discontinued 3 MG PO Daily at bedtime 15 July 01, 2020 11:00pm July 22, 2020 [...] 100 mg, oral, Nightly, First dose on 02/22/23 at 2100 Start: 05-20-2020 End: 07-22-2020 take 100 mg by mouth at bedtime Trazodone Active 100 M G PO Bedtime July 22, 2020 8:07am Start: 02-03-2020 End: 05-20-2020 take 75 mg by mouth at bedtime Trazodone Discontinued 75 MG PO Bedtime May 03, 2020 3:40pm May 20, 2020 9:51am End: 05-18-2023 traZODone (DESYREL) 150 mg t ablet Take 75 mg by mouth nightly. 0 05/18/2023 Discontinued (Therapy completed) Problems Active Problems Problem Classification Problem Date Documented Date Episodic/Chronic Anxiety disorders (4 sources) Anxiety; Translations: [Anxiety disorder, unspecified] Onset: 02-22-2023 02-22-2023 Chronic Conditions associated with dizziness or vertigo (2 sources) Dizziness and giddiness; Translations: [Dizziness] Onset: 09-24-2023 Episodic Diabetes mellitus without complication (8 sources) Type [...] without psychotic features] Onset: 12-03-2021 06-28-2020 Chronic Mycoses (1 source) Superficial mycosis, unspecified; Translations: [Superficial mycosis, unspecified] Onset: 07-06-2023 Episodic Other connective tissue disease (1 source) Pain [...] [Other acute postprocedural pain] 02-25-2023 Episodic Other nutritional; endocrine; and metabolic disorders [...] stomach [part of]] Onset: 04-19-2023 04-23-2023 Episodic Spondylosis; intervertebral disc disorders; other back problems (1 source) Backache Onset: 07-06-2023 Episodic Sprains and strains (1 source) Strain of muscle and tendon of unspecified wall of thorax, initial encounter; Translations: [Strain of muscle and tendon of unspecified wall of thorax, initial encounter] Onset: 07-06-2023 Episodic Unclassified (2 sources) Post-op Visit; Translations: [Post-op Visit] Onset: 03-16-2023 Unclassified (2 sources) Ear Drainage; Translations: [Ear Drainage] Onset: 12-24-2022 Unclassified (1 source) Rash Onset: 05-18-2023 Unclassified (1 source) Pre-op Exam Onset: 03-24-2023 Unclassified (1 source) Cerebrospinal fluid leak, unspecified; Translations: [Cerebrospinal fluid leak, unspecified] Onset: 01-20-2023 Past or Other Problems Problem Classification Problem Date Documented Date Episodic/Chronic Allergic reactions (2 sources) Eczema; Translations: [Other specified dermatitis] Onset: 05-18-2023 05-18-2023 Episodic Fracture of lower limb (2 sources) Other [...] [Trigeminal neuralgia] Onset: 09-21-2017 12-03-2021 Episodic Other nervous system disorders (2 sources) Other acute postprocedural pain; Translations: [Other acute postprocedural pain] Onset: 02-22-2023 Episodic Other non-traumatic joint disorders (1 source) [...] Magnesiumon 02-25-2023 Magnesium [Mass/Vol] 1.55 mg/dL Low 1.60 - 2.40 mg/dL [facility] Magnesium [Mass/Vol] 1.55 mg/dL Low 1.60-2.40 [facility] Comment on above: Performed By: #### 3 4529-8 #### REGGIE Baugh ([id number]) [facility] ([facility]) [address] [place] [address] No Panel Informationon 02-25 Interpretation and review of laboratory results Abnormal [facility] Renal function 2000 panelon 02-25-2023 Albumin BCP dye [Mass/Vol] 3.8 g/dL 3.4 - 5.0 g/dL [facility] Anion gap [Moles/Vol] 13 mmol/L 10 - 20 mmol/L [facility] Calcium [Mass/Vol] 9.2 mg/dL 8.6 - 10. 6 mg/dL [facility] Chloride [Moles/Vol] 100 mmol/L 98 - 107 mmol/L [facility] CO2 [Moles/Vol] 29 mmol/L 21 - 32 mmol/L [facility] Creatinine [Mass/Vol] 0.61 mg/dL 0.50 - 1.05 mg/dL [facility] GFR/1.73 sq M.predicted MDRD (S/P/Bld) [Vol rate/Area] - PINF [facility] Comment on above: Calculations of kortney mated GFR are performed using the 2020 CKD-EPI Study Refit equation without the race variable for the IDMS-Traceable creatinine methods. https://jasn.asnjournals.org/content//ASN.75917250 88 Glucose [Mass/Vol] 121 mg/dL High 74 - 99 mg/dL [facility] Phosphate [Mass/Vol] 2.9 mg/dL 2.5 - 4.9 mg/dL [facility] Comment on above: The performance hina acteristics of phosphorus testing in heparinized plasma have been validated by the individual laboratory site where testing is performed. Testing on heparinized plasma is not approved by the FDA; however, such approval is not necessary. Potassium [Moles/Vol] 4.4 mmol/L 3.5 - 5.3 mmol/L [facility] Sodium [Moles/Vol] 138 mmol/L 136 - 145 mmol/L [facility] Urea nitrogen [Mass/Vol] 11 mg/dL 6 - 23 mg/dL [facility] Albumin BCP dye [Mass/Vol] 3.8 g/dL Normal 3.4-5.0 [facility] Comment on above: Performed By: #### 3 4529-8 #### REGGIE Baugh ([id number]) [facility] ([facility]) [id number] [place] [address] 26633 Anion gap [Moles/Vol] 13 mmol/L Normal 10-20 [facility] Comment on above: Performed By: #### 3 4529-8 #### REGGIE Baugh ([id number]) [facility] ([facility]) [address] [place] [address] 93349 Calcium [Mass/Vol] 9.2 mg/dL Normal 8.6-10.6 [facility] Comment on above: Performed By: #### 3 4529-8 #### REGGIE Baugh ([id number]) [facility] ([facility]) [address] [place] [address] Chloride [Moles/Vol] 100 mmol/L Normal 98-107 [facility] Comment on above: Performed By: #### 3 4529-8 #### REGGIE Baugh ([id number]) [facility] ([facility]) [id number] [place] [address] 99876 CO2 [Moles/Vol] 29 mmol/L Normal 21-32 [facility] Comment on above: Performed By: #### 3 4529-8 #### REGGIE Baugh ([id number]) [facility] ([facility]) [address] [place] [address] 73329 Creatinine [Mass/Vol] 0.61 mg/dL Normal 0.50-1.05 [facility] Comment on above: Performed By: #### 3 4529-8 #### REGGIE Baugh ([id number]) [facility] ([facility]) [address] [place] [address] GFR/1.73 sq M.predicted MDRD (S/P/Bld) [Vol rate/Area] mL/min/{1.73_m2} Normal >60 [facility] Comment on above: Result Comment: Calc ulations of estimated GFR are performed using the 2020 CKD-EPI Study Refit equation without the race variable for the IDMS-Traceable creatinine methods. https://jasn.asnjournals.org/content/early//ASN.23660876 88 Performed By: #### 3 4529-8 #### REGGIE Baugh ([id number]) [facility] ([facility]) [address] [place] [address] 14260 Glucose [Mass/Vol] 121 mg/dL High 74-99 [facility] Comment on above: Performed By: #### 3 4529-8 #### REGGIE Baugh ([id number]) [facility] ([facility]) [address] [place] [address] 04609 Phosphate [Mass/Vol] 2.9 mg/dL Normal 2.5-4.9 [facility] Comment on above: Result Comment: The performance characteristics of phosphorus testing in heparinized plasma have been validated by the individual laboratory site where testing is performed. Testing on heparinized plasma is not approved by the FDA; however, such approval is not necessary. Performed By: #### 3 4529-8 #### REGGIE Baugh ([id number]) [facility] ([facility]) [address] [place] [address] Potassium [Moles/Vol] 4.4 mmol/L Normal 3.5-5.3 [facility] Comment on above: Performed By: #### 3 4529-8 #### REGGIE Baugh ([id number]) [facility] ([facility]) [address] [place] [address] 94501 Sodium [Moles/Vol] 138 mmol/L Normal 136-145 [facility] Comment on above: Performed By: #### 3 4529-8 #### REGGIE Baugh ([id number]) [facility] ([facility]) [address] [place] [address] 26366 Urea nitrogen [Mass/Vol] 11 mg/dL Normal 6-23 [facility] Comment on above: Performed By: #### 3 4529-8 #### REGGIE Baugh ([id number]) [facility] ([facility]) [address] [place] [address] 55180 Glucose Test strip manual (B ld) [Mass/Vol]on 02-24-2023 Glucose [Mass/Vol] 121 mg/dL High 74 - 99 mg/dL [facility] Interpretation and review of laboratory results Abnormal [facility] Glucose [Mass/Vol] 121 mg/dL High 74-99 [facility] Comment on above: Performed By: #### 3 4529-8 #### REGGIE Baugh ([id number]) [facility] ([facility]) [address] [place] [address] 51231 Glucose [Mass/Vol] 107 mg/dL High 74 - 99 mg/dL [facility] Interpretation and review of laboratory results Abnormal [facility] Glucose [Mass/Vol] 107 mg/dL High 74-99 [facility] Comment on above: Performed By: #### 3 4529-8 #### ERGGIE Baugh ([id number]) [facility] ([facility]) [address] [place] [address] 44063 Glucose [Mass/Vol] 100 mg/dL High 74 - 99 mg/dL [facility] Interpretation and review of laboratory results Abnormal [facility] Glucose [Mass/Vol] 100 mg/dL High 74-99 [facility] Comment on above: Performed By: #### 3 4529-8 #### REGGIE Baugh ([id number]) [facility] ([facility]) [address] [place] [address] 08713 CBC W Auto Differential pane l (Bld)on 02-23-2023 Basophils (Bld) [#/Vol] 0.02 10*3/uL [facility] Basophils/100 WBC (Bld) 0.2 % 0.0 - 2.0 % [facility] Eosinophils (Bld) [#/Vol] 0.03 10*3/uL [facility] Eosinophils/100 WBC (Bld) 0.3 % 0.0 - 6.0 % [facility] Erythrocyte distribution width (RBC) [Ratio] 13.2 % 11.5 - 14.5 % [facility] Hematocrit (Bld) [Volume fraction] 37.0 % 36.0 - 46.0 % [facility] Hemoglobin (Bld) [Mass/Vol] 12.0 g/dL 12.0 - 16.0 g/dL [facility] Immature granulocytes (Bld) [#/Vol] 0.02 10*3/uL [facility] Immature granulocytes/100 WBC (Bld) 0.2 % 0.0 - 0.9 % [facility] Comment on above: Immature Granulocyte Count (IG) includes promyelocytes, myelocytes and metamyelocytes but does not include bands. Percent differential counts (%) should be interpreted in the context of the absolute cell counts (cells/UL). Interpretation and review of laboratory results Abnormal [facility] Lymphocytes (Bld) [#/Vol] 1.95 10*3/uL [facility] Lymphocytes/100 WBC (Bld) 18.2 % 13.0 - 44.0 % [facility] MCH (RBC) [Entitic mass] 28.7 pg 26.0 - 34.0 pg [facility] MCHC (RBC) [Mass/Vol] 32.4 g/dL 32.0 - 36.0 g/dL [facility] MCV (RBC) [Entitic vol] 89 fL 80 - 100 fL [facility] Monocytes (Bld) [#/Vol] 0.66 10*3/uL [facility] Monocytes/100 WBC (Bld) 6.2 % 2.0 - 10.0 % [facility] Neutrophils (Bld) [#/Vol] 8.01 10*3/uL High [facility] Comment on above: Percent differential counts (%) should be interpreted in the context of the absolute cell counts (cells/uL). Neutrophils/100 WBC (Bld) 74.9 % 40.0 - 80.0 % [facility] Nucleated RBC/100 WBC (Bld) [Ratio] 0.0 % [facility] Platelets (Bld) [#/Vol] 250 10*3/uL [facility] RBC (Bld) [#/Vol] 4.18 10*6/uL [facility] WBC (Bld) [#/Vol] 10.7 10*3/uL [facility] Basophils (Bld) [#/Vol] 0.02 x10*3/uL Normal 0.00-0.10 [facility] Comment on above: Performed By: #### 3 4529-8 #### REGGIE Baugh ([id number]) [facility] ([facility]) [address] [place] [address] 27897 Basophils/100 WBC (Bld) 0.2 % Normal 0.0-2.0 [facility] Comment on above: Performed By: #### 3 4529-8 #### REGGIE Baugh ([id number]) [facility] ([facility]) [id number] [place] [address] 38242 Eosinophils (Bld) [#/Vol] 0.03 x10*3/uL Normal 0.00-0.70 [facility] Comment on above: Performed By: #### 3 4529-8 #### REGGIE Baugh ([id number]) [facility] ([facility]) [id number] [place] [address] 45723 Eosinophils/100 WBC (Bld) 0.3 % Normal 0.0-6.0 [facility] Comment on above: Performed By: #### 3 4529-8 #### REGGIE Baugh ([id number]) [facility] ([facility]) [id number] [place] [address] 37172 Erythrocyte distribution width (RBC) [Ratio] 13.2 % Normal 11.5-14.5 [facility] Comment on above: Performed By: #### 3 4529-8 #### REGGIE Baugh ([id number]) [facility] ([facility]) [address] [place] [address] Hematocrit (Bld) [Volume fraction] 37.0 % Normal 36.0-46.0 [facility] Comment on above: Performed By: #### 3 4529-8 #### REGGIE Baugh ([id number]) [facility] ([facility]) [address] [place] [address] Hemoglobin (Bld) [Mass/Vol] 12.0 g/dL Normal 12.0-16.0 [facility] Comment on above: Performed By: #### 3 4529-8 #### REGGIE Baugh ([id number]) [facility] ([facility]) [address] [place] [address] 28067 Immature granulocytes (Bld) [#/Vol] 0.02 x10*3/uL Normal 0.00-0.70 [facility] Comment on above: Performed By: #### 3 4529-8 #### REGGIE Baugh ([id number]) [facility] ([facility]) [address] [place] [address] 53800 Immature granulocytes/100 WBC (Bld) 0.2 % Normal 0.0-0.9 [facility] Comment on above: Result Comment: [place] ture Granulocyte Count (IG) includes promyelocytes, myelocytes and metamyelocytes but does not include bands. Percent differential counts (%) should be interpreted in the context of the absolute cell counts (cells/UL). Performed By: #### 3 4529-8 #### REGGIE Baugh ([id number]) [facility] ([facility]) [address] [place] [address] Lymphocytes (Bld) [#/Vol] 1.95 x10*3/uL Normal 1.20-4.80 [facility] Comment on above: Performed By: #### 3 4529-8 #### REGGIE Baugh ([id number]) [facility] ([facility]) [address] [place] [address] Lymphocytes/100 WBC (Bld) 18.2 % Normal 13.0-44.0 [facility] Comment on above: Performed By: #### 3 4529-8 #### REGGIE Baugh ([id number]) [facility] ([facility]) [address] [place] [address] 18906 MCH (RBC) [Entitic mass] 28.7 pg Normal 26.0-34.0 [facility] Comment on above: Performed By: #### 3 4529-8 #### REGGIE Baugh ([id number]) [facility] ([facility]) [address] [place] [address] 67577 MCHC (RBC) [Mass/Vol] 32.4 g/dL Normal 32.0-36.0 [facility] Comment on above: Performed By: #### 3 4529-8 #### REGGIE Baugh ([id number]) [facility] ([facility]) [address] [place] [address] 13758 MCV (RBC) [Entitic vol] 89 fL Normal 80-100 [facility] Comment on above: Performed By: #### 3 4529-8 #### REGGIE Baugh ([id number]) [facility] ([facility]) [address] [place] [address] 19053 Monocytes (Bld) [#/Vol] 0.66 x10*3/uL Normal 0.10-1.00 [facility] Comment on above: Performed By: #### 3 4529-8 #### REGGIE Baugh ([id number]) [facility] ([facility]) [address] [place] [address] 28471 Monocytes/100 WBC (Bld) 6.2 % Normal 2.0-10.0 [facility] Comment on above: Performed By: #### 3 4529-8 #### REGGIE Baugh ([id number]) [facility] ([facility]) [address] [place] [address] 56082 Neutrophils (Bld) [#/Vol] 8.01 x10*3/uL High 1.20-7.70 [facility] Comment on above: Result Comment: Perc ent differential counts (%) should be interpreted in the context of the absolute cell counts (cells/uL). Performed By: #### 3 4529-8 #### REGGIE Baugh ([id number]) [facility] ([facility]) [id number] [place] [address] 01776 Neutrophils/100 WBC (Bld) 74.9 % Normal 40.0-80.0 [facility] Comment on above: Performed By: #### 3 4529-8 #### REGGIE Baugh ([id number]) [facility] ([facility]) [id number] [place] [address] 34696 Nucleated RBC/100 WBC (Bld) [Ratio] 0.0 /100 WBCs Normal 0.0-0.0 [facility] Comment on above: Performed By: #### 3 4529-8 #### REGGIE Baugh ([id number]) [facility] ([facility]) [id number] [place] [address] 30160 Platelets (Bld) [#/Vol] 250 x10*3/uL Normal 150-450 [facility] Comment on above: Performed By: #### 3 4529-8 #### REGGIE Baugh ([id number]) [facility] ([facility]) [address] [place] [address] 05722 RBC (Bld) [#/Vol] 4.18 x10*6/uL Normal 4.00-5.20 [facility] Comment on above: Performed By: #### 3 4529-8 #### REGGIE Baugh ([id number]) [facility] ([facility]) [address] [place] [address] 03627 WBC (Bld) [#/Vol] 10.7 x10*3/uL Normal 4.4-11.3 [facility] Comment on above: Performed By: #### 3 4529-8 #### REGGIE Baugh ([id number]) [facility] ([facility]) [id number] [place] [address] 30894 Magnesiumon 02-23-2023 Magnesium [Mass/Vol] 1.52 mg/dL Low 1.60 - 2.40 mg/dL [facility] Magnesium [Mass/Vol] 1.52 mg/dL Low 1.60-2.40 [facility] Comment on above: Performed By: #### 3 4529-8 #### REGGIE Baugh ([id number]) [facility] ([facility]) [address] [place] [address] No Panel Informationon 02-23 Interpretation and review of laboratory results Abnormal [facility] Renal function 2000 panelon 02-23-2023 Albumin BCP dye [Mass/Vol] 3.5 g/dL 3.4 - 5.0 g/dL [facility] Anion gap [Moles/Vol] 10 mmol/L 10 - 20 mmol/L [facility] Calcium [Mass/Vol] 8.8 mg/dL 8.6 - 10. 6 mg/dL [facility] Chloride [Moles/Vol] 100 mmol/L 98 - 107 mmol/L [facility] CO2 [Moles/Vol] 31 mmol/L 21 - 32 mmol/L [facility] Creatinine [Mass/Vol] 0.47 mg/dL Low 0.50 - 1.05 mg/dL [facility] GFR/1.73 sq M.predicted MDRD (S/P/Bld) [Vol rate/Area] - PINF [facility] Comment on above: Calculations of kortney mated GFR are performed using the 2020 CKD-EPI Study Refit equation without the race variable for the IDMS-Traceable creatinine methods. https://jasn.asnjournals.org/content//ASN.99106849 88 Glucose [Mass/Vol] 114 mg/dL High 74 - 99 mg/dL [facility] Phosphate [Mass/Vol] 3.5 mg/dL 2.5 - 4.9 mg/dL [facility] Comment on above: The performance hina acteristics of phosphorus testing in heparinized plasma have been validated by the individual laboratory site where testing is performed. Testing on heparinized plasma is not approved by the FDA; however, such approval is not necessary. Potassium [Moles/Vol] 4.1 mmol/L 3.5 - 5.3 mmol/L [facility] Sodium [Moles/Vol] 137 mmol/L 136 - 145 mmol/L [facility] Urea nitrogen [Mass/Vol] 13 mg/dL 6 - 23 mg/dL [facility] Albumin BCP dye [Mass/Vol] 3.5 g/dL Normal 3.4-5.0 [facility] Comment on above: Performed By: #### 3 4529-8 #### REGGIE Baugh ([id number]) [facility] ([facility]) [id number] [place] [address] 89199 Anion gap [Moles/Vol] 10 mmol/L Normal 10-20 [facility] [facility] Comment on above: Performed By: #### 3 4529-8 #### REGGIE Baugh ([id number]) [facility] ([facility]) [address] [place] [address] 72317 Calcium [Mass/Vol] 8.8 mg/dL Normal 8.6-10.6 [facility] Comment on above: Performed By: #### 3 4529-8 #### REGGIE Baugh ([id number]) [facility] ([facility]) [address] [place] [address] 48870 Chloride [Moles/Vol] 100 mmol/L Normal 98-107 [facility] Comment on above: Performed By: #### 3 4529-8 #### REGGIE Baugh ([id number]) [facility] ([facility]) [address] [place] [address] 43801 CO2 [Moles/Vol] 31 mmol/L Normal 21-32 [facility] Comment on above: Performed By: #### 3 4529-8 #### REGGIE Baugh ([id number]) [facility] ([facility]) [address] [place] [address] 94044 Creatinine [Mass/Vol] 0.47 mg/dL Low 0.50-1.05 [facility] Comment on above: Performed By: #### 3 4529-8 #### REGGIE Baugh ([id number]) [facility] ([facility]) [address] [place] [address] 87659 GFR/1.73 sq M.predicted MDRD (S/P/Bld) [Vol rate/Area] mL/min/{1.73_m2} Normal >60 [facility] Comment on above: Result Comment: Calc ulations of estimated GFR are performed using the 2020 CKD-EPI Study Refit equation without the race variable for the IDMS-Traceable creatinine methods. https://jasn.asnjournals.org/content/early/ASN.65178219 88 Performed By: #### 3 4529-8 #### REGGIE Baugh ([id number]) [facility] ([facility]) [address] [place] [address] 12801 Glucose [Mass/Vol] 114 mg/dL High 74-99 [facility] Comment on above: Performed By: #### 3 4529-8 #### REGGIE Baugh ([id number]) [facility] ([facility]) [address] [place] [address] 21795 Phosphate [Mass/Vol] 3.5 mg/dL Normal 2.5-4.9 [facility] Comment on above: Result Comment: The performance characteristics of phosphorus testing in heparinized plasma have been validated by the individual laboratory site where testing is performed. Testing on heparinized plasma is not approved by the FDA; however, such approval is not necessary. Performed By: #### 3 4529-8 #### REGGIE Baugh ([id number]) [facility] ([facility]) [address] [place] [address] 91613 Potassium [Moles/Vol] 4.1 mmol/L Normal 3.5-5.3 [facility] Comment on above: Performed By: #### 3 4529-8 #### REGGIE Baugh ([id number]) [facility] ([facility]) [address] [place] [address] 72135 Sodium [Moles/Vol] 137 mmol/L Normal 136-145 [facility] Comment on above: Performed By: #### 3 4529-8 #### REGGIE Baugh ([id number]) [facility] ([facility]) [address] [place] [address] Urea nitrogen [Mass/Vol] 13 mg/dL Normal 6-23 [facility] Comment on above: Performed By: #### 3 4529-8 #### REGGIE Baugh ([id number]) [facility] ([facility]) [address] [place] [address] CT HEAD WO IV CONTRASTon CT HEAD WO IV CONTRAST Interpreted By: Meenakshi Coker, STUDY: CT HEAD WO IV CONTRAST; 02/22/2023 12:48 pm INDICATION: Signs/Symptoms:s/p crani for tegmen defect repair. COMPARISON: CT head from 10/16/2022 ACCESSION NUMBER(S): [id number] ORDERING CLINICIAN: KATHERINE POLANCO TECHNIQUE: Noncontrast axial [...] Meenakshi Coker 02/22/2023 1:04 PM Dictation workstation: [id number] [facility] CT Head WO contraston 2022 Status post right temporal craniotomy with postsurgical repair along the right tegmen tympani. Signed by: Meenakshi Coker 02/22/2023 1:04 PM Dictation workstation: [id number] [facility] Interpreted By: Meenakshi Coker, STUDY: CT HEAD WO IV CONTRAST; 02/22/2023 12:48 pm INDICATION: Signs/Symptoms:s/p crani for tegmen defect repair. COMPARISON: CT head from 10/16/2022 ACCESSION NUMBER(S): [id number] ORDERING CLINICIAN: KATHERINE POLANCO TECHNIQUE: Noncontrast axial [...] The left mastoid air cells are clear. MMODAL Meenakshi Coker MD - 02/22/2023 Interpreted By: Meenakshi Coker, STUDY: CT HEAD WO IV CONTRAST; 02/22/2023 12:48 pm INDICATION: Signs/Symptoms:s/p crani for tegmen defect repair. COMPARISON: CT head from 10/16/2022 ACCESSION NUMBER(S): [id number] ORDERING CLINICIAN: KATHERINE POLANCO TECHNIQUE: Noncontrast axial [...] Meenakshi Coker 02/22/2023 1:04 PM Dictation workstation: [id number] [facility] Work Phone: Radiology Study observation (narrative) [facility] Work Phone: CT Head WO contrastOrdered B y: Meenakshi Coker on 02-22-2023 [facility] Work Phone: Glucose Test strip manual (B ld) [Mass/Vol]on 02-22-2023 Glucose [Mass/Vol] 107 mg/dL High 74 - 99 mg/dL [facility] Interpretation and review of laboratory results Abnormal [facility] Glucose [Mass/Vol] 107 mg/dL High 74-99 [facility] Comment on above: Performed By: #### 2 341-6 #### REGGIE Baugh ([id number]) [facility] ([facility]) [address] [place], [place] [id number] Bacteria identifiedon 2022 Bacteria identified Cx Nom (U) Test: Urine Culture Specimen Source: Clean Catch/Voided Specimen Type: Urine Specimen Date: 02/17/2023 1:34 PM Result Date: 02/18/2023 11:30 AM Result Status: Final result Abnormal: No Resulting Lab: [facility] [address] [place], [place] [id number] CULTURE No significant growth Normal [facility] Comment on above: Performed By: #### 6 30-4 #### REGGIE Baugh ([id number]) [facility] ([facility]) [address] [place] [address] 28894 Basic metabolic 2000 panelon 02-17-2023 Anion gap [Moles/Vol] 16 mmol/L Normal - [facility] Comment on above: Performed By: #### 2 4321-2 #### REGGIE Baugh ([id number]) [facility] ([facility]) [address] [place] [address] Calcium [Mass/Vol] 9.7 mg/dL Normal 8.6-10.6 [facility] Comment on above: Performed By: #### 2 4321-2 #### REGGIE Baugh ([id number]) [facility] ([facility]) [address] [place] [address] Chloride [Moles/Vol] 100 mmol/L Normal 98-107 [facility] Comment on above: Performed By: #### 2 4321-2 #### REGGIE Baugh ([id number]) [facility] ([facility]) [address] [place] [address] CO2 [Moles/Vol] 27 mmol/L Normal 21-32 [facility] Comment on above: Performed By: #### 2 4321-2 #### REGGIE Baugh ([id number]) [facility] ([facility]) [address] [place] [address] Creatinine [Mass/Vol] 0.62 mg/dL Normal 0.50-1.05 [facility] Comment on above: Performed By: #### 2 4321-2 #### REGGIE Baugh ([id number]) [facility] ([facility]) [address] [place] [address] GFR/1.73 sq M.predicted MDRD (S/P/Bld) [Vol rate/Area] mL/min/{1.73_m2} Normal >60 [facility] Comment on above: Result Comment: Calc ulations of estimated GFR are performed using the 2020 CKD-EPI Study Refit equation without the race variable for the IDMS-Traceable creatinine methods. https://jasn.asnjournals.org/content//ASN.57834815 88 Performed By: #### 2 4321-2 #### REGGIE Baugh ([id number]) [facility] ([facility]) [address] [place] [address] Glucose [Mass/Vol] 90 mg/dL Normal 74-99 [facility] Comment on above: Performed By: #### 2 4321-2 #### REGGIE Baugh (72093) [facility] ([facility]) [address] [place] [address] Potassium [Moles/Vol] 4.9 mmol/L Normal 3.5-5.3 [facility] Comment on above: Performed By: #### 2 4321-2 #### REGGIE Baugh ([id number]) [facility] ([facility]) [address] [place] [address] 67616 Sodium [Moles/Vol] 138 mmol/L Normal 136-145 [facility] Comment on above: Performed By: #### 2 4321-2 #### REGGIE Baugh ([id number]) [facility] ([facility]) [address] [place] [address] 08988 Urea nitrogen [Mass/Vol] 25 mg/dL High 6-23 [facility] Comment on above: Performed By: #### 2 432-2 #### REGGIE Baugh ([id number]) [facility] ([facility]) [address] [place] [address] 64507 Blood type and Indirect anti body screen panel (Bld)on 02-17-2023 ABO group Nom (Bld) [facility] Comment on above: Performed By: #### 3 4532-2 #### REGGIE Baugh ([id number]) [facility] ([facility]) [address] [place] [address] 30072 Blood group antibody screen Ql Negative [facility] Comment on above: Performed By: #### 3 4532-2 #### REGGIE Baugh ([id number]) [facility] ([facility]) [address] [place] [address] D Ag Ql (Bld) Positive [facility] Comment on above: Result Comment: 2nd ABO test required. Order and Collect VERAB Performed By: #### 3 4532-2 #### REGGIE Baugh ([id number]) [facility] ([facility]) [address] [place] [address] 67224 CBC panel Auto (Bld)on 02-17 Erythrocyte distribution width (RBC) [Ratio] 13.1 % Normal 11.5-14.5 [facility] Comment on above: Performed By: #### 5 8410-2 #### REGGIE Baugh ([id number]) [facility] ([facility]) [address] [place] [address] 47525 Hematocrit (Bld) [Volume fraction] 41.4 % Normal 36.0-46.0 [facility] Comment on above: Performed By: #### 5 8410-2 #### REGGIE Baugh ([id number]) [facility] ([facility]) [address] [place] [address] 46200 Hemoglobin (Bld) [Mass/Vol] 13.3 g/dL Normal 12.0-16.0 [facility] Comment on above: Performed By: #### 5 8410-2 #### REGGIE Baugh ([id number]) [facility] ([facility]) [address] [place] [address] 59645 MCH (RBC) [Entitic mass] 28.9 pg Normal 26.0-34.0 [facility] Comment on above: Performed By: #### 5 8410-2 #### REGGIE Baugh ([id number]) [facility] ([facility]) [address] [place] [address] 38694 MCHC (RBC) [Mass/Vol] 32.1 g/dL Normal 32.0-36.0 [facility] Comment on above: Performed By: #### 5 8410-2 #### REGGIE Baugh ([id number]) [facility] ([facility]) [address] [place] [address] 23705 MCV (RBC) [Entitic vol] 90 fL Normal 80-100 [facility] Comment on above: Performed By: #### 5 8410-2 #### REGGIE Baugh ([id number]) [facility] ([facility]) [address] [place] [address] 19049 Nucleated RBC/100 WBC (Bld) [Ratio] 0.0 /100 WBCs Normal 0.0-0.0 [facility] Comment on above: Performed By: #### 5 8410-2 #### REGGIE Baugh (78629) [facility] ([facility]) [address] [place] [address] Platelets (Bld) [#/Vol] 294 x10*3/uL Normal 150-450 [facility] Comment on above: Performed By: #### 5 8410-2 #### REGGIE Baugh ([id number]) [facility] ([facility]) [address] [place] [address] RBC (Bld) [#/Vol] 4.61 x10*6/uL Normal 4.00-5.20 [facility] Comment on above: Performed By: #### 5 8410-2 #### REGGIE Baugh (67225) [facility] ([facility]) [address] [place] [address] WBC (Bld) [#/Vol] 8.5 x10*3/uL Normal 4.4-11.3 [facility] Comment on above: Performed By: #### 5 8410-2 #### REGGIE Baugh (78098) [facility] ([facility]) [address] [place] [address] HbA1c (Bld) [Mass fraction]o n 02-17-2023 Average glucose Estimated from glycated hemoglobin (Bld) [Mass/Vol] 123 mg/dL Normal Not Established [facility] Comment on above: Order Comment: Diagn osis of Diabetes-Adults Non-Diabetic: < or = 5.6% Increased risk for developing diabetes: 5.7-6.4% Diagnostic of diabetes: > or = 6.5% Monitoring of Diabetes Age (y)....................... Therapeutic Goal (%) Adults: >18.........................<7.0 Pediatrics: 13-18...................<7.5 Pediatrics: 7-12....................<8.0 Pediatrics: 0-6..................... 7.5-8.5 [employer]. Diabetes Care 33(S1)Mar 2009 Performed By: #### 4 548-4 #### REGGIE Baugh ([id number]) [facility] ([facility]) [address] [place], [place] [address] Hemoglobin A1c/Hemoglobin.to gustavo 02-17-2023 HbA1c (Bld) [Mass fraction] 5.9 % High see below [facility] Comment on above: Order Comment: Diagn osis of Diabetes-Adults Non-Diabetic: < or = 5.6% Increased risk for developing diabetes: 5.7-6.4% Diagnostic of diabetes: > or = 6.5% Monitoring of Diabetes Age (y)....................... Therapeutic Goal (%) Adults: >18.........................<7.0 Pediatrics: 13-18...................<7.5 Pediatrics: 7-12....................<8.0 Pediatrics: 0-6..................... 7.5-8.5 [employer]. Diabetes Care 33(S1), Mar 2009 Performed By: #### 4 548-4 #### REGGIE Baugh ([id number]) [facility] ([facility]) [address] [place] [address] 79884 PT and aPTT panel Coag (PPP) on 02-17-2023 aPTT Coag (PPP) [Time] 36 s Normal 27-38 [facility] Comment on above: Order Comment: The A PTT is no longer used for monitoring Unfractionated Heparin Therapy. For monitoring Heparin Therapy, use the Heparin Assay. Performed By: #### 3 4529-8 #### REGGIE Baugh (81958) [facility] ([facility]) [address] [place] [address] INR Coag (PPP) [Relative time] 1.1 Normal 0.9-1.1 [facility] Comment on above: Order Comment: The A PTT is no longer used for monitoring Unfractionated Heparin Therapy. For monitoring Heparin Therapy, use the Heparin Assay. Performed By: #### 3 4529-8 #### REGGIE Baugh ([id number]) [facility] ([facility]) [address] [place], [place] [address] PT Coag (PPP) [Time] 12.8 s Normal 9.8-12.8 [facility] Comment on above: Order Comment: The A PTT is no longer used for monitoring Unfractionated Heparin Therapy. For monitoring Heparin Therapy, use the Heparin Assay. Performed By: #### 3 4529-8 #### REGGIE Baugh (93405) [facility] ([facility]) [address] [place] [address] Staphylococcus aureus.methic illin resistant isolateon 02-17-2023 MRSA isol Org specific cx Ql (Nose) Test: Staphylococcus aureus/MRSA colonization, Culture Specimen Source: Nares/Axilla/Groin Specimen Type: Swab Specimen Date: 02/17/2023 1:34 PM Result Date: 02/19/2023 7:40 AM Result Status: Final result Abnormal: No Resulting Lab: [facility] [address] [place] [address] CULTURE No Staphylococcus aureus isolated Normal [facility] Comment on above: Performed By: #### 5 2969-3 #### REGGIE Baugh (07905) [facility] ([facility]) [address] [place], [place] [address] Urinalysis complete W Reflex Culture panel (U)on 02-17-2023 Appearance (U) Clear Normal Clear [facility] Comment on above: Performed By: #### 5 8077-9 #### REGGIE Baugh ([id number]) [facility] ([facility]) [address] [place] [address] 82635 Bilirubin (U) [Mass/Vol] Negative Normal NEGATIVE [facility] Comment on above: Performed By: #### 5 8077-9 #### REGGIE Baugh (85555) [facility] ([facility]) [address] [place] [address] 04071 Color (U) Yellow Normal Straw, Yellow [facility] Comment on above: Performed By: #### 5 8077-9 #### REGGIE Baugh ([id number]) [facility] ([facility]) [address] [place] [address] 37640 Glucose Auto test strip (U) [Mass/Vol] Negative Normal NEGATIVE [facility] Comment on above: Performed By: #### 5 8077-9 #### REGGIE Baugh ([id number]) [facility] ([facility]) [address] [place] [address] 79734 Ketones (U) [Mass/Vol] Negative Normal NEGATIVE [facility] Comment on above: Performed By: #### 5 8077-9 #### REGGIE Baugh ([id number]) [facility] ([facility]) [address] [place] [address] 63881 Leukocyte esterase Auto test strip Ql (U) SMALL (1+) Abnormal NEGATIVE [facility] Comment on above: Performed By: #### 5 8077-9 #### REGGIE Baugh (77335) [facility] ([facility]) [address] [place] [address] 08468 Nitrite Auto test strip Ql (U) Negative Normal NEGATIVE [facility] Comment on above: Performed By: #### 5 8077-9 #### REGGIE QUEZADA L (60879) [facility] ([facility]) [address] [place] [address] 51073 pH (U) 5.0 [pH] Normal 5.0, 5.5, 6.0, 6.5, 7.0, 7.5, 8.0 [facility] Comment on above: Performed By: #### 5 8077-9 #### REGGIE Baugh ([id number]) [facility] ([facility]) [address] [place] [address] 91002 Protein (U) [Mass/Vol] Negative Normal NEGATIVE [facility] Comment on above: Performed By: #### 5 8077-9 #### REGGIE QUEZADA L ([id number]) [facility] ([facility]) [address] [place] [address] 43178 RBC (U) [#/Vol] Negative Normal NEGATIVE [facility] Comment on above: Performed By: #### 5 8077-9 #### REGGIE Baugh ([id number]) [facility] ([facility]) [address] [place] [address] 78064 Specific gravity (U) [Rel density] 1.019 Normal 1.005-1.035 [facility] Comment on above: Performed By: #### 5 8077-9 #### REGGIE Baugh ([id number]) [facility] ([facility]) [address] [place] [address] 97443 Urobilinogen (U) [Mass/Vol] mg/dL Normal <2.0 [facility] Comment on above: Performed By: #### 5 8077-9 #### REGGIE Baugh ([id number]) [facility] ([facility]) [address] [place] [address] 57177 Urinalysis microscopic panel Auto Ql (U)on 02-17-2023 Epithelial cells.squamous Auto (Urine sed) [#/Area] 1-9 (SPARSE) Normal Reference range not established. [facility] Comment on above: Performed By: #### 5 3315-8 #### REGGIE Baugh ([id number]) [facility] ([facility]) [address] [place] [address] 11228 RBC Auto (Urine sed) [#/Area] 1-2 Normal NONE, 1-2, 3-5 [facility] Comment on above: Performed By: #### 5 3315-8 #### REGGIE Baugh ([id number]) [facility] ([facility]) [address] [place] [address] WBC Auto (Urine sed) [#/Area] 1-5 Normal 1-5, NONE [facility] Comment on above: Performed By: #### 5 3315-8 #### REGGIE Baugh ([id number]) [facility] ([facility]) [address] [place] [address] XR foot LT min 3V*on 023 XR foot LT min 3V* [facility] [employer] Other XR foot LT min 3V* [facility] [employer] Other XR foot LT min 3V* [address] [place] [address] [employer] Other XR foot LT min 3V* [place] [address] [employer] Other XR foot LT min 3V* XRay Report [employer] Other XR foot LT min 3V* Signed [employer] Other XR foot LT min 3V* Patient: Ya Womack MR#: [id number] [employer] Other XR foot LT min 3V* 671 [employer] Other XR foot LT min 3V* : 1965 Acct:[id number] [employer] Other XR foot LT min 3V* Age/Sex: 57 / F ADM Date: 09/12/22 [employer] Other XR foot LT min 3V* Loc: XDUCLY Room: Type: REG CLI [employer] Other XR foot LT min 3V* Attending Dr: Carol CORTEZ [employer] Other XR foot LT min 3V* Copies to: DANA Che [employer] Other XR foot LT min 3V* Ordering Provider: DANA Che [employer] Other XR foot LT min 3V* Date of Service: 09/12/22 [employer] Other XR foot LT min 3V* XR/XR foot LT min 3V*: Left foot pain [employer] Other XR foot LT min 3V* XR foot LT min 3V* 09/12/2022 12:11 PM [employer] Other XR foot LT min 3V* SIGNS AND SYMPTOMS: Left foot pain and swelling [employer] Other XR foot LT min 3V* PROTOCOL: Frontal, lateral, and oblique radiographs of the left foot [employer] Other XR foot LT min 3V* COMPARISON: None [employer] Other XR foot LT min 3V* FINDINGS: [employer] Other XR foot LT min 3V* There is a remote healed fifth metatarsal fracture. The joint spaces are preserved. There is no [employer] Other XR foot LT min 3V* evidence of acute displaced fracture. There is plantar surface calcaneal spurring. There is diffuse [employer] Other XR foot LT min 3V* soft tissue swelling. [employer] Other XR foot LT min 3V* XR/XR foot LT min 3V* [employer] Other XR foot LT min 3V* IMPRESSION: [employer] Other XR foot LT min 3V* No acute displaced fracture. [employer] Other XR foot LT min 3V* There is a remote healed fifth metatarsal fracture. [employer] Other XR foot LT min 3V* There is diffuse soft tissue swelling which is nonspecific. [employer] Other XR foot LT min 3V* Impression dictated by: Alli Woods M.D.09/12/2022 12:29 PM [employer] Other XR foot LT min 3V* Dictation Location: RADIO-PC-13 [employer] Other XR foot LT min 3V* Transcribed By: PWS 09/12/22 1229 [employer] Other XR foot LT min 3V* Dictated By: Alli Woods II, MD 09/12/22 1228 [employer] Other XR foot LT min 3V* Signed By: [employer] Other XR foot LT min 3V* 09/12/[address] [place] [address] [employer] Other FREE T4on 12-12-2021 Free T4 [Mass/Vol] 0.86 ng/dL Normal 0.76-1.46 [facility] Comment on above: Performed By: #### F T4 #### [facility] [address] [place] [address] Dr. Jose Luis Diaz MG MAMM SCREEN 3D RAFY CADon 12-12-2021 MG MAMM SCREEN 3D RAFY CAD Patient: YA WOMACK Exam Date: 12/12/2021 : 1965 Gender:F Ordering : DR HARLAN ALMEIDA Admission #: [id number] Family : DR OLAF ANGUIANO Order #: [id number] CLICK HERE TO VIEW EXAM RADIOLOGY REPORT [...] lung cancer at age 49. LOCATION: [facility] BREAST COMPOSITION: Almost entirely fatty. FINDINGS: DIAGNOSTIC [...] Thompson MD on 12/12/2021 at 12:58 Normal [facility] TSHon 12-12-2021 TSH 1.592 uIU/mL Normal 0.358-3.740 [facility] Comment on above: Performed By: #### T SH #### [facility] [address] [place] [address] Dr. Jose Luis Diaz MICROALBUMIN/ CREATININE RAT IOon 11-25-2021 Albumin, Urine 170.0 ug/mL Normal Not Estab. [facility] Comment on above: Performed By: #### M ALBCRL #### [facility] [address] [place] [address] Dr. Jose Luis Diaz Albumin/ Creatinine Ratio 78 mg/g creat Critically high 0-29 [facility] Comment on above: Result Comment: Norm al: 0 - 29 Moderately increased: 30 - 300 Severely increased: >300 Performed By: #### M ALBCRL #### [facility] [address] [address] [address] Jose Luis Diaz Creatinine, Urine 216.7 mg/dL Normal Not Estab. [facility] Comment on above: Performed By: #### M ALBCRL #### [facility] [address] [place] [address] Dr. Jose Luis Diaz GLYCOHEMOGLOBIN A1Con 2021 ADA RECOMMENDATION SEE BELOW Normal [facility] Comment on above: Result Comment: ADA RECOMMENDED LIMIT 4.0 - 6.0 ADA THERAPEUTIC TARGET < 7.0 ACTION SUGGESTED > 7.0 Performed By: #### A 1C #### [facility] [address] [place] [address] Dr. Jose Luis Diaz Glucose [Mass/Vol] 126 mg/dL Normal [facility] Comment on above: Performed By: #### A 1C #### [facility] [address] [address] [address] Jose Luis Diaz HbA1c (Bld) [Mass fraction] 6.0 % Normal 4.5-6.2 [facility] Comment on above: Performed By: #### A 1C #### [facility] [address] [address] [address] Jose Luis Diaz LIPID PROFILEon 11-24-2021 CHOL-HDL RATIO NORM SEE BELOW Normal [facility] Comment on above: Result Comment: 3.3 - 4.4 LOW RISK 4.4 - 7.1 AVERAGE RISK 7.1 - 11.0 MODERATE RISK >11.0 HIGH RISK Performed By: #### L IPID, CMP #### [facility] [address] [place] [address] Dr. Jose Luis Diaz Cholesterol [Mass/Vol] 201 mg/dL Critically high <=200 [facility] Comment on above: Performed By: #### L IPID, CMP #### [facility] [address] [address] [address] Jose Luis Diaz Cholesterol in HDL [Mass/Vol] 60 mg/dL Normal 40-60 [facility] Comment on above: Performed By: #### L IPID, CMP #### [facility] [address] [address] [address] Jose Luis Diaz Cholesterol in LDL [Mass/Vol] 111.0 mg/dL Normal [facility] Comment on above: Performed By: #### L IPID, CMP #### [facility] [address] [address] [address] Jose Luis Diaz Cholesterol.total/C holesterol in HDL [Mass ratio] 3.4 {ratio} Normal [facility] Comment on above: Performed By: #### L IPID, CMP #### [facility] [address] [address] [address] Jose Luis Diaz HDL NORMAL > or = 60 mg/dl - LOW CARDIOVASCULAR RISK <40 mg/dl - HIGH CARDIOVASCULAR RISK Normal [facility] Comment on above: Performed By: #### L IPID, CMP #### [facility] [address] [place] [address] Dr. Jose Luis Diaz LDL CALC NORMAL SEE BELOW Normal [facility] Comment on above: Result Comment: <100 mg/dl OPTIMAL 100 - 129 mg/dl NEAR OR ABOVE OPTIMAL 130 - 159 mg/dl BORDERLINE HIGH 160 - 189 mg/dl HIGH >190 mg/dl VERY HIGH Performed By: #### L IPID, CMP #### [facility] [address] [address] [address] Jose Luis Diaz Triglyceride [Mass/Vol] 150 mg/dL Normal <=150 [facility] Comment on above: Performed By: #### L IPID, CMP #### [facility] [address] [place] [address] Dr. Jose Luis Diaz VLDL CALC 30.0 mg/dL Normal [facility] Comment on above: Performed By: #### L IPID, CMP #### [facility] [address] [place] [address] Dr. Jose Luis Diaz PROF 14(COMP METB)on 022 Albumin [Mass/Vol] 3.6 g/dL Normal 3.4-5.0 [facility] Comment on above: Performed By: #### L IPID, CMP #### [facility] [address] [place] [address] Dr. Jose Luis Diaz Albumin/Globulin [Mass ratio] 0.8 {ratio} Normal [facility] Comment on above: Performed By: #### L IPID, CMP #### [facility] [address] [place] [address] Dr. Jose Luis Diaz ALP [Catalytic activity/Vol] 79 U/L Normal 46-116 [facility] Comment on above: Performed By: #### L IPID, CMP #### [facility] [address] [place] [address] Dr. Jose Luis Diaz ALT [Catalytic activity/Vol] 23 U/L Normal 14-59 [facility] Comment on above: Performed By: #### L IPID, CMP #### [facility] [address] [place] [address] Dr. Jose Luis Diaz Anion gap [Moles/Vol] 10.9 mmol/L Normal [facility] Comment on above: Performed By: #### L IPID, CMP #### [facility] [address] [place] [address] Dr. Jose Luis Diaz AST [Catalytic activity/Vol] 16 U/L Normal 15-37 [facility] Comment on above: Performed By: #### L IPID, CMP #### [facility] [address] [place] [address] Dr. Jose Luis Diaz Bilirubin [Mass/Vol] 0.4 mg/dL Normal 0.2-1.0 [facility] Comment on above: Performed By: #### L IPID, CMP #### [facility] [address] [place] [address] Dr. Jose Luis Diaz Calcium [Mass/Vol] 9.4 mg/dL Normal 8.5-10.1 [facility] Comment on above: Performed By: #### L IPID, CMP #### [facility] [address] [place] [address] Dr. Jose Luis Diaz Chloride [Moles/Vol] 101 mmol/L Normal 98-107 [facility] Comment on above: Performed By: #### L IPID, CMP #### [facility] [address] [place] [address] Dr. Jose Luis Diaz CO2 [Moles/Vol] 29.2 mmol/L Normal 21.0-32.0 [facility] Comment on above: Performed By: #### L IPID, CMP #### [facility] [address] [place] [address] Dr. Jose Luis Diaz Creatinine [Mass/Vol] 0.80 mg/dL Normal 0.55-1.02 [facility] Comment on above: Performed By: #### L IPID, CMP #### [facility] [address] [place] [address] Dr. Jose Luis Diaz EGFR-AF GABONESE >60 Normal >=60 [facility] Comment on above: Performed By: #### L IPID, CMP #### [facility] [address] [address] [address] Jose Luis Diaz EGFR-NON AF GABONESE >60 Normal >=60 [facility] Comment on above: Performed By: #### L IPID, CMP #### [facility] [address] [address] [address] Jose Luis Diaz Globulin (S) [Mass/Vol] 4.3 g/dL Normal [facility] Comment on above: Performed By: #### L IPID, CMP #### [facility] [address] [address] [address] Jose Luis Diaz Glucose [Mass/Vol] 129 mg/dL Critically high 74-[address] [facility] Comment on above: Performed By: #### L IPID, CMP #### [facility] [address] [place] [address] Dr. Jose Luis Diaz Potassium [Moles/Vol] 4.1 mmol/L Normal 3.5-5.1 [facility] Comment on above: Performed By: #### L IPID, CMP #### [facility] [address] [place] [address] Dr. Jose Luis Diaz Protein [Mass/Vol] 7.9 g/dL Normal 6.4-8.2 [facility] Comment on above: Performed By: #### L IPID, CMP #### [facility] [address] [place] [address] Dr. Jose Luis Diaz Sodium [Moles/Vol] 137 mmol/L Normal 136-145 [facility] Comment on above: Performed By: #### L IPID, CMP #### [facility] [address] [place] [address] Dr. Jose Luis Diaz Urea nitrogen [Mass/Vol] 12.0 mg/dL Normal 7.0-18.0 [facility] Comment on above: Performed By: #### L IPID, CMP #### [facility] [address] [place] [address] Dr. Jose Luis Diaz Urea nitrogen/Creatinine [Mass ratio] 15.0 mg/mg Normal [facility] Comment on above: Performed By: #### L IPID, CMP #### [facility] [address] [place], [place] [address] Dr. Jose Luis Diaz XR ankle RT min 3V*on 2021 XR ankle RT min 3V* [facility] [employer] Other XR ankle RT min 3V* [facility] [employer] Other XR ankle RT min 3V* [address] [facility] [employer] Other XR ankle RT min 3V* [place] [address] [employer] Other XR ankle RT min 3V* XRay Report Nort [employer] Other XR ankle RT min 3V* Signed [employer] Other XR ankle RT min 3V* Patient: Ya Womack MR#: [id number] [place] [employer] Other XR ankle RT min 3V* 671 [employer] Other XR ankle RT min 3V* : 1965 Acct:[id number] [employer] Other XR ankle RT min 3V* Age/Sex: 56 / F ADM Date: 07/18/21 [employer] Other XR ankle RT min 3V* Loc: XDUCLY Room: Type: REG CLI [employer] Other XR ankle RT min 3V* Attending Dr: Carol CORTEZ [employer] Other XR ankle RT min 3V* Ordering Provider: DANA Che [employer] Other XR ankle RT min 3V* Date of Service: 07/18/21 [employer] Other XR ankle RT min 3V* XR/XR ankle RT min 3V*: Acute right ankle pain [employer] Other XR ankle RT min 3V* Copies to: DAILY Che[facility] [employer] Other XR ankle RT min 3V* RIGHT ANKLE - 3 views [employer] Other XR ankle RT min 3V* CLINICAL HISTORY: Patient with right ankle 3 days ago walking down steps. Lateral ankle pain. [employer] Other XR ankle RT min 3V* COMPARISON: None [employer] Other XR ankle RT min 3V* FINDINGS: [employer] Other XR ankle RT min 3V* Soft tissue swelling. Chip fracture lateral malleolus. Ankle mortise appears intact. Plantar [employer] Other XR ankle RT min 3V* spurring. [employer] Other XR ankle RT min 3V* XR/XR ankle RT min 3V* [employer] Other XR ankle RT min 3V* IMPRESSION: Nort [email or web address] Other XR ankle RT min 3V* CHIP FRACTURE LATERAL MALLEOLUS WITH SOFT TISSUE SWELLING. [employer] Other XR ankle RT min 3V* Impression dictated by: Aidan Grullon Jr., DVinhOVinh07/18/2021 12:03 PM [employer] Other XR ankle RT min 3V* Dictation Location: [facility] [employer] Other XR ankle RT min 3V* Transcribed By: PWS 07/18/21 1203 [employer] Other XR ankle RT min 3V* Dictated By: Aidan Grullon Jr, DO 07/18/21 1203 [employer] Other XR ankle RT min 3V* Signed By: [employer] Other XR ankle RT min 3V* 07/18/21 1203 No [employer] Other [facility] 05-01-2021 Albumin [Mass/Vol] 4.4 g/dL Normal 3.6-5.1 [facility] Comment on above: Performed By: #### 1 0231, 7600 #### [facility] of [address], [address] [place] [address] [employer] Representative: Pedrito Fontaine MD Albumin/Globulin [Mass ratio] 1.6 {ratio} Normal 1.0-2.5 [facility] Comment on above: Performed By: #### 1 0231, 7600 #### [facility] of [address] [address] [employer] Representative: Pedrito Fontaine MD ALP [Catalytic activity/Vol] 63 U/L Normal 37-153 [facility] Comment on above: Performed By: #### 1 0231, 7600 #### [facility] of [address] [address] [employer] Representative: Pedrito Fontaine MD ALT [Catalytic activity/Vol] 17 U/L Normal 6-29 [facility] Comment on above: Performed By: #### 1 0231, 7600 #### [facility] of [address] [address] [employer] Representative: Pedrito Fontaine MD AST [Catalytic activity/Vol] 18 U/L Normal 10-35 [facility] Comment on above: Performed By: #### 1 0231, 7600 #### [facility] of [address] [address] [employer] Representative: Pedrito Fontaine MD Bilirubin [Mass/Vol] 0.4 mg/dL Normal 0.2-1.2 [facility] Comment on above: Performed By: #### 1 0231, 7600 #### [facility] of [address] [address] [employer] Representative: Pedrito Fontaine MD BUN/CREATININE RATIO NOT APPLICABLE Normal 6-22 [facility] Comment on above: Performed By: #### 1 0231, 7600 #### [facility] [address], [address] [place] [address] [employer] Representative: Pedrito Fontaine MD Calcium [Mass/Vol] 9.7 mg/dL Normal 8.6-10.4 [facility] Comment on above: Performed By: #### 1 023, 7600 #### [facility] [address] [address] [employer] Representative: Pedrito Fontaine MD Chloride [Moles/Vol] 104 mmol/L Normal 98-110 [facility] Comment on above: Performed By: #### 1 023, 7600 #### [facility] [address] [address] [employer] Representative: Pedrito Fontaine MD CO2 [Moles/Vol] 27 mmol/L Normal 20-32 [facility] Comment on above: Performed By: #### 1 023, 7600 #### [facility] [address] [address] [employer] Representative: Pedrito Fontaine MD Creatinine [Mass/Vol] 0.69 mg/dL Normal 0.50-1.05 [facility] Comment on above: Result Comment: For patients >49 years of age, the reference limit for Creatinine is approximately 13% higher for people identified as -Scottish. Performed By: #### 1 023, 7600 #### [facility] [address] [address] [employer] Representative: Pedrito Fontaine MD eGFR NON-AFR. GABONESE 97 mL/min/1.73m2 Normal > OR = 60 [facility] Comment on above: Performed By: #### 1 023, 7600 #### [facility] [address] [address] [employer] Representative: Pedrito Fontaine MD GFR/1.73 sq M.predicted among blacks MDRD (S/P/Bld) [Vol rate/Area] 112 mL/min/{1.73_m2} Normal > OR = 60 [facility] Comment on above: Performed By: #### 1 023, 7600 #### [facility] [address] [address] [employer] Representative: Pedrito Fontaine MD Globulin (S) [Mass/Vol] 2.8 g/dL Normal 1.9-3.7 [facility] Comment on above: Performed By: #### 1 230, 7600 #### [facility] [address] [address] [employer] Representative: Pedrito Fontaine MD Glucose [Mass/Vol] 104 mg/dL High 65-99 [facility] Comment on above: Result Comment: Fasting reference interval For someone without known diabetes, a glucose value between 100 and 125 mg/dL is consistent with prediabetes and should be confirmed with a follow-up test. Performed By: #### 1 023, 0 #### [facility] [address] [address] [employer] Representative: Pedrito Fontaine MD Potassium [Moles/Vol] 4.8 mmol/L Normal 3.5-5.3 [facility] Comment on above: Performed By: #### 1 023, 7600 #### [facility] [address] [address] [employer] Representative: Pedrito Fontaine MD Protein [Mass/Vol] 7.2 g/dL Normal 6.1-8.1 [facility] Comment on above: Performed By: #### 1 023, 7600 #### [facility] [address] [address] [employer] Representative: Pedrito Fontaine MD Sodium [Moles/Vol] 143 mmol/L Normal 135-146 [facility] Comment on above: Performed By: #### 1 023, 7600 #### [facility] [address] [address] [employer] Representative: Pedrito Fontaine MD Urea nitrogen [Mass/Vol] 16 mg/dL Normal 7-25 [facility] Comment on above: Performed By: #### 1 0231, 7600 #### [facility] [address], [address] [place] [address] [employer] Representative: Pedrito Fontaine MD LIPID PANEL, [facility] 04-09 Cholesterol [Mass/Vol] 195 mg/dL Normal <200 [facility] Comment on above: Order Comment: FASTI NG:YES FASTING: YES Performed By: #### 1 0231, 7600 #### [facility] [address], [address] [place] [address] [employer] Representative: Pedrito Fontaine MD Cholesterol in HDL [Mass/Vol] 63 mg/dL Normal > OR = 50 [facility] Comment on above: Order Comment: FASTI NG:YES FASTING: YES Performed By: #### 1 023, 7600 #### [facility] [address], [address] [place] [address] [employer] Representative: Pedrito Fontaine MD Cholesterol in LDL [Mass/Vol] 101 mg/dL High [facility] Comment on above: Order Comment: FASTI NG:YES FASTING: YES Result Comment: Refe rence range: <100 Desirable range <100 mg/dL for primary prevention; <70 mg/dL for patients with CHD or diabetic patients with > or = 2 CHD risk factors. LDL-C is now calculated using the Keven-Catherine calculation, which is a validated novel method providing better accuracy than the Friedewald equation in the estimation of LDL-C. Keven CANNON et al. JOSEPH. 2013;310(19): 4660-2355 (http://education.tapviva.SyMynd/faq/WQF193) Performed By: #### 1 023, 0 #### [facility] of [address], [address] [place] [address] [employer] Representative: Pedrito Fontaine MD Cholesterol.total/C holesterol in HDL [Mass ratio] 3.1 {ratio} Normal <5.0 [facility] Comment on above: Order Comment: FASTI NG:YES FASTING: YES Performed By: #### 1 0231, 7600 #### [facility] [address], [address] [place] [address] [employer] Representative: Pedrito Fontaine MD NON HDL CHOLESTEROL 132 mg/dL (calc) High <130 [facility] Comment on above: Order Comment: FASTI NG:YES FASTING: YES Result Comment: For patients with diabetes plus 1 major ASCVD risk factor, treating to a non-HDL-C goal of <100 mg/dL (LDL-C of <70 mg/dL) is considered a therapeutic option. Performed By: #### 1 023, 7600 #### [facility] [address] [address] [employer] Representative: Pedrito Fontaine MD Triglyceride [Mass/Vol] 192 mg/dL High <150 [facility] Comment on above: Order Comment: FASTI NG:YES FASTING: YES Performed By: #### 1 023, 7600 #### [facility] [address] [address] [employer] Representative: Pedrito Fontaine MD [facility] 10-09-2020 Albumin [Mass/Vol] 4.2 g/dL Normal 3.6-5.1 [facility] Comment on above: Performed By: #### 1 023, 0 #### [facility] [address] [address] [employer] Representative: Pedrito Fontaine MD Albumin/Globulin [Mass ratio] 1.6 {ratio} Normal 1.0-2.5 [facility] Comment on above: Performed By: #### 1 023, 0 #### [facility] [address] [address] [employer] Representative: Pedrito Fontaine MD ALP [Catalytic activity/Vol] 56 U/L Normal 37-153 [facility] Comment on above: Performed By: #### 1 023, 7600 #### [facility] [address] [address] [employer] Representative: Pedrito Fontaine MD ALT [Catalytic activity/Vol] 7 U/L Normal 6-29 [facility] Comment on above: Performed By: #### 1 023, 7600 #### [facility] of [address] [address] [employer] Representative: Pedrito Fontaine MD AST [Catalytic activity/Vol] 10 U/L Normal 10-35 [facility] Comment on above: Performed By: #### 1 0231, 7600 #### [facility] of [address] [address] [employer] Representative: Pedrito Fontaine MD Bilirubin [Mass/Vol] 0.3 mg/dL Normal 0.2-1.2 [facility] Comment on above: Performed By: #### 1 0231, 7600 #### [facility] of [address] [address] [employer] Representative: Pedrito Fontaine MD BUN/CREATININE RATIO NOT APPLICABLE Normal 6-22 [facility] Comment on above: Performed By: #### 1 0231, 7600 #### [facility] of [address] [address] [employer] Representative: Pedrito Fontaine MD Calcium [Mass/Vol] 9.3 mg/dL Normal 8.6-10.4 [facility] Comment on above: Performed By: #### 1 0231, 7600 #### [facility] of [address] [address] [employer] Representative: Pedrito Fontaine MD Chloride [Moles/Vol] 101 mmol/L Normal 98-110 [facility] Comment on above: Performed By: #### 1 0231, 7600 #### [facility] of [address] [address] [employer] Representative: Pedrito Fontaine MD CO2 [Moles/Vol] 27 mmol/L Normal 20-32 [facility] Comment on above: Performed By: #### 1 0231, 7600 #### [facility] of [address] [address] [employer] Representative: Pedrito Fontaine MD Creatinine [Mass/Vol] 0.67 mg/dL Normal 0.50-1.05 [facility] Comment on above: Result Comment: For patients >49 years of age, the reference limit for Creatinine is approximately 13% higher for people identified as -Scottish. Performed By: #### 1 230, 7600 #### [facility] [address] [address] [employer] Representative: Pedrito Fontaine MD eGFR NON-AFR. GABONESE 98 mL/min/1.73m2 Normal > OR = 60 [facility] Comment on above: Performed By: #### 1 023, 7600 #### [facility] [address] [address] [employer] Representative: Pedrito Fontaine MD GFR/1.73 sq M.predicted among blacks MDRD (S/P/Bld) [Vol rate/Area] 114 mL/min/{1.73_m2} Normal > OR = 60 [facility] Comment on above: Performed By: #### 1 230, 0 #### [facility] [address] [address] [employer] Representative: Pedrito Fontaine MD Globulin (S) [Mass/Vol] 2.6 g/dL Normal 1.9-3.7 [facility] Comment on above: Performed By: #### 1 230, 7600 #### [facility] [address] [place] [address] [employer] Representative: Pedrito Fontaine MD Glucose [Mass/Vol] 88 mg/dL Normal 65-99 [facility] Comment on above: Result Comment: Fasting reference interval Performed By: #### 1 023, 7600 #### [facility] [address] [place] [address] [employer] Security Representative: Pedrito Fontaine MD Potassium [Moles/Vol] 4.7 mmol/L Normal 3.5-5.3 [facility] Comment on above: Performed By: #### 1 023, 7600 #### [facility] [address] [place] [address] [employer] Security Representative: Pedrito Fontaine MD Protein [Mass/Vol] 6.8 g/dL Normal 6.1-8.1 [facility] Comment on above: Performed By: #### 1 0231, 7600 #### [facility] [address] [place] [address] [employer] Representative: Pedrito Fontaine MD Sodium [Moles/Vol] 139 mmol/L Normal 135-146 [facility] Comment on above: Performed By: #### 1 0231, 7600 #### [facility] [address] [place] [address] [employer] Representative: Pedrito Fontaine MD Urea nitrogen [Mass/Vol] 22 mg/dL Normal 7-25 [facility] Comment on above: Performed By: #### 1 0231, 7600 #### [facility] [address] [place] [address] [employer] Representative: Pedrito Fontaine MD LIPID PANEL, [facility] 08-0 Cholesterol [Mass/Vol] 210 mg/dL High <200 [facility] Comment on above: Performed By: #### 1 0231, 7600 #### [facility] [address] [place] [address] [employer] Security Representative: Pedrito Fontaine MD Cholesterol in HDL [Mass/Vol] 59 mg/dL Normal > OR = 50 [facility] Comment on above: Performed By: #### 1 0231, 7600 #### [facility] [address] [place] [address] [employer] Representative: Pedrito Fontaine MD Cholesterol in LDL [Mass/Vol] [...] LDL-C. Keven CANNON et al. JOSEPH. 2013;310(19): 2606-7907 (http://education.tapviva.SyMynd/faq/RLA924) Performed By: #### 1 023, 7600 #### [facility] [address], [address] [place] [address] [employer] Representative: Pedrito Fontaine MD Cholesterol.total/C holesterol in HDL [Mass ratio] 3.6 {ratio} Normal <5.0 [facility] Comment on above: Performed By: #### 1 023, 7600 #### [facility] [address], [address] [place] [address] [employer] Representative: Pedrito Fontaine MD NON HDL CHOLESTEROL 151 mg/dL (calc) High <130 [facility] Comment on above: Result Comment: For patients with diabetes plus 1 major ASCVD risk factor, treating to a non-HDL-C goal of <100 mg/dL (LDL-C of <70 mg/dL) is considered a therapeutic option. Performed By: #### 1 023, 7600 #### [facility] [address], [address] [place] [address] [employer] Representative: Pedrito Fontaine MD Triglyceride [Mass/Vol] 179 mg/dL High <150 [facility] Comment on above: Performed By: #### 1 023, 0 #### [facility] [address] [place] [address] [employer] Representative: Pedrito Fontaine MD KNEE LEFT 3 VWSon 03-10-2019 KNEE LEFT 3 S [facility] Department of Radiology [address] [place] [id number] Patient Name: YA WOMACK : 1965 Sex: F Age: Race: White Pt. Location: Patient Status: O Ordered Date: 03/10/2019 3:35:00 PM Completed Date: 03/10/2019 03:37 PM Requesting Provider: RISA HAYWOOD Attending Provider: RISA HAYWOOD Report Copy To: Signs & Symptoms: M25.562 Pain in left knee I10 History: [place] Comments: , Views (X-RAY, KNEE): AP, Lateral, [place] , Weight Bearing?: Y , Views (X-RAY, KNEE): AP, Lateral, [place] , Weight Bearing?: Y , , , Ordering Provider - RISA HAYWOOD PA-C , Exam: KNEE LEFT 3 VWS KNEE LEFT 3 S 03/10/2019 3:37 PM EST SIGNS AND SYMPTOMS: M25.562 Pain in left knee I10 TECHNOLOGIST COMMENTS: pt states having bilateral knee pain post fall 10 days ago QUESTION FOR THE RADIOLOGIST: , Views (X-RAY, KNEE): AP, Lateral, [place] , Weight Bearing?: Y , Views (X-RAY, KNEE): AP, Lateral, [place] , Weight Bearing?: Y , , , [...] 7017. Electronically signed by:Gini Martin. Transcribed by: [email or web address], User Resident: Electronically Signed by: GINI MARTIN @ 03/10/2019 03:48 PM Normal [facility] Comment on above: Order Comment: , Vie ws (X-RAY, KNEE): AP, Lateral, [place] , Weight Bearing?: Y , Views (X-RAY, KNEE): AP, Lateral, [place] , Weight Bearing?: Y , , , Ordering Provider - RISA HAYWOOD PA-C , KNEE RIGHT 3 VWSon 0 KNEE RIGHT 3 S [facility] Department of Radiology [address] [place] [id number] Patient Name: YA WOMACK : 1965 Sex: F Age: Race: White Pt. Location: Patient Status: O Ordered Date: 03/10/2019 3:35:00 PM Completed Date: 03/10/2019 03:37 PM Requesting Provider: RISA HAYWOOD Attending Provider: RISA HAYWOOD Report Copy To: Signs & Symptoms: M25.561 Pain in right knee I10 History: [place] Comments: , Views (X-RAY, KNEE): AP, Lateral, [place] , Weight Bearing?: Y , Views (X-RAY, KNEE): AP, Lateral, [place] , Weight Bearing?: Y , , , Ordering Provider - RISA HAYWOOD PA-C , Exam: KNEE RIGHT 3 S KNEE RIGHT 3 S 03/10/2019 3:37 PM EST SIGNS AND SYMPTOMS: M25.561 Pain in right knee I10 TECHNOLOGIST COMMENTS: pt states having bilateral knee pain post fall 10 days ago QUESTION FOR THE RADIOLOGIST: , Views (X-RAY, KNEE): AP, Lateral, [place] , Weight Bearing?: Y , Views (X-RAY, KNEE): AP, Lateral, [place] , Weight Bearing?: Y , , , [...] 05/12/2017 Electronically signed by:Gini Martin. Transcribed by: [email or web address], User Resident: Electronically Signed by: GINI MARTIN @ 03/10/2019 03:49 PM Normal [facility] Comment on above: Order Comment: , Vie ws (X-RAY, KNEE): AP, Lateral, [place] , Weight Bearing?: Y , Views (X-RAY, KNEE): AP, Lateral, [place] , Weight Bearing?: Y , , , Ordering Provider - RISA HAYWOOD PA-C , Vital Signs Date Time Vital Sign Value Performing Clinician Facility 05-18-2023 13: Body height 170.2 cm Brandon DONOVAN Work Phone: [facility] 05-18-2023 13:110400 Body mass index (BMI) [Ratio] 43.68 kg/m2 Brandon Sotelo APRNCarbon Credits InternationalRUBBER EXTRUSION MACHINE OPERATOR Work Phone: [facility] 05-18-2023 13:11040 Body temperature 97.3 [degF] Brandon DONOVAN Work Phone: [facility] 05-18-2023 13:110400 Body weight 126.51 kg Brandon Sotelo APRN-RUBBER EXTRUSION MACHINE OPERATOR Work Phone: [facility] 05-18-2023 13:11-0400 Diastolic blood pressure 80 mm[Hg] Brandon Sotelo APRN-RUBBER EXTRUSION MACHINE OPERATOR [facility]: [facility] 05-18-2023 13:11-0400 Heart rate 74 /min Brandon Sotelo APRN-RUBBER EXTRUSION MACHINE OPERATOR [facility] Phone: [facility] 05-18-2023 13:11-0400 SaO2% (BldA) [Mass fraction] 95 % Brandon Sotelo APRN-RUBBER EXTRUSION MACHINE OPERATOR Work Phone: [facility] 05-18-2023 13:11-0400 Systolic blood pressure 120 mm[Hg] Brandon Sotelo APRN-RUBBER EXTRUSION MACHINE OPERATOR Work Phone: [facility] 04-23-2023 10:51-0500 Body height 167.64 cm [facility] 04-23-2023 10:51-0500 Body mass index (BMI) [Ratio] 49.2 kg/m2 [facility] 04-23-2023 10:51-0500 Body temperature 98.5 [degF] [facility] 04-23-2023 10:51-0500 Body weight 138.34 kg [facility] 04-23-2023 10:51-0500 Diastolic blood pressure 77 mm[Hg] [facility] 04-23-2023 10:51-0500 Heart rate 86 /min [facility] 04-23-2023 10:51-0500 Respiratory rate 18 /min [facility] 04-23-2023 10:51-0500 SaO2% (BldA) [Mass fraction] 98 % [facility] 04-23-2023 10:51-0500 Systolic blood pressure 128 mm[Hg] [facility] 03-16-2023 12:58-0500 Body height 167.6 cm Fercho Ham MD Work Phone: [facility] 03-16-2023 12:58-0500 Body mass index (BMI) [Ratio] 51.88 kg/m2 Fercho Ham MD Work Phone: [facility] 03-16-2023 12:58-0500 Body temperature 96.21 [degF] Fercho Ham MD Work Phone: [facility] 03-16-2023 12:58-0500 Body weight 145.79 kg Fercho Ham MD Work Phone: [facility] 02-25-2023 15:38-0500 Body temperature 97.7 [degF] Clayton Hawley MD Work Phone: [facility] 02-25-2023 15:38-0500 Diastolic blood pressure 77 mm[Hg] Clayton Hawley MD Work Phone: [facility] 02-25-2023 15:38-0500 Heart rate 81 /min Clayton Hawley MD Work Phone: [facility] 02-25-2023 15:38-0500 Respiratory rate 16 /min Clayton Hawley MD Work Phone: [facility] 02-25-2023 15:38-0500 SaO2% (BldA) [Mass fraction] 92 % Clayton Hawley MD Work Phone: [facility] 02-25-2023 15:38-0500 Systolic blood pressure 143 mm[Hg] Clayton Hawley MD Work Phone: [facility] 02-24-2023 00:00-0500 Body mass index (BMI) [Ratio] 54.05 kg/m2 Clayton Hawley MD Work Phone: [facility] 02-24-2023 00:00-0500 Body weight 151.9 kg Clayton Hawley MD Work Phone: [facility] 02-22-2023 06:35-0500 Body height 167.6 cm Clayton Hawley MD Work Phone: [facility] 10-08-2022 10:10-0400 Body height 172.72 cm Harmony Khan Other [employer] Other 10-08-2022 10:10-0400 Body mass index (BMI) [Ratio] 51.9 kg/m2 Harmony Khan Other [employer] Other 10-08-2022 10:10-0400 Body temperature 97.8 [degF] Harmony Khan Other [employer] Other 10-08-2022 10:10-0400 Body weight 154.86 kg Harmony Khan Other [employer] Other 10-08-2022 10:10-0400 Diastolic blood pressure 85 mm[Hg] Harmony Khan Other [employer] Other 10-08-2022 10:10-0400 Respiratory rate 18 /min Harmony Khan Other [employer] Other 10-08-2022 10:10-0400 SaO2% (BldA) [Mass fraction] 95 % Harmony Khan Other [employer] Other 10-08-2022 10:10-0400 Systolic blood pressure 137 mm[Hg] Harmony Khan Other [employer] Other 09-12-2022 11:15-0400 Body height 172.72 cm Carol Mckinney Other [employer] Other 09-12-2022 11:15-0400 Body mass index (BMI) [Ratio] 52.15 kg/m2 Carol Faye Other [employer] Other 09-12-2022 11:15-0400 Body temperature 98.1 [degF] Carol Faye Other [employer] Other 09-12-2022 11:15-0400 Body weight 155.58 kg Carol Faye Other [employer] Other 09-12-2022 11:15-0400 Diastolic blood pressure 73 mm[Hg] Carol Faye Other [employer] Other 09-12-2022 11:15-0400 Respiratory rate 18 /min Carol Faye Other [employer] Other 09-12-2022 11:15-0400 SaO2% (BldA) [Mass fraction] 92 % Carol Faye Other [employer] Other 09-12-2022 11:15-0400 Systolic blood pressure 143 mm[Hg] Carlo Faye Other [employer] Other 07-18-2021 12:20-0400 Body height 172.72 cm Carol Faye Other [employer] Other 07-18-2021 12:20-0400 Body mass index (BMI) [Ratio] 51.69 kg/m2 Carol Faye Other [employer] Other 07-18-2021 12:20-0400 Body temperature 96.9 [degF] Carol Faye Other [employer] Other 07-18-2021 12:20-0400 Body weight 154.22 kg Carol Faye Other [employer] Other 07-18-2021 12:20-0400 Respiratory rate 16 /min Carol Mckinney Other [employer] Other 07-18-2021 12:20-0400 SaO2% (BldA) [Mass fraction] 98 % Carol Mckinney Other [employer] Other Encounters Encounter Date Encounter Type Care Provider Facility Start: 10-04-2023 End: 10-04-2023 ambulatory ALEKS HINTON Not Available Start: 09-24-2023 End: 09-24-[address] [facility] Start: 09-23-2023 ambulatory Deepak Schaffer acility[facility] Start: 07-22-2023 End: 07-22-2023 ambulatory [facility] Start: 07-08-2023 End: 07-08-2023 ambulatory [facility] Start: 07-06-2023 End: 07-06-2023 ambulatory [facility] Start: 05-25-2023 End: 05-25-2023 ambulatory MEÑO GOMEZ Not Available Start: 05-18-2023 End: 05-18-2023 Office outpatient visit 15 minutes Brandon Sotelo ETHICS MANAGER-RUBBER EXTRUSION MACHINE OPERATOR Work Phone: [facility] Comment on above: Other eczema (Primar y Dx); Bipolar disorder, current episode mixed, mild ([facility] Start: 05-18-2023 End: 05-18-2023 ambulatory BRANDON J [facility] Start: 05-18-2023 End: 05-18-2023 ambulatory MEÑO GOMEZ Not Available Start: 04-23-2023 End: 04-23-2023 ambulatory [facility] Work Phone: Start: 04-23-2023 End: 04-23-2023 Patient encounter procedure [facility] Work Phone: Start: 03-24-2023 End: 03-24-[address] 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) Start: 02-22-2023 End: 02-25-2023 Evaluation and management of inpatient [facility] Haw[facility] MD [facility] [place] [id number] Comment on above: CSF leak (Primary Dx ); Post-op pain Start: 02-17-2023 End: 02-17-2023 ambulatory [facility] Start: 02-17-2023 End: 02-17-2023 Encounter for other preprocedural examination [facility] Start: 02-02-2023 End: 02-02-2023 ambulatory [facility] Start: 01-18-2023 End: 01-18-2023 Office outpatient new 30 minutes [facility] MD [facility] Comment on above: CSF leak (Primary Dx ) Start: 01-18-2023 End: 01-19-2023 ambulatory CLAYTON HAWLEY [facility] Start: 01-07-2023 End: 01-07-2023 ambulatory FERCHO Brown [facility] Start: 12-24-2022 End: 12-24-2022 ambulatory [facility] Start: 10-08-2022 End: 10-08-2022 ambulatory Harmony Khan Other [employer] Other Start: 10-08-2022 Office outpatient vi sit 25 minutes Harmony Khan [facility] Start: 09-12-2022 Office outpatient vi sit 15 minutes Carol Mckinney [facility] Start: 09-12-2022 End: 09-12-2022 ambulatory DO Harlan Furlong Work Phone: [employer] Other Start: 09-12-2022 End: 09-12-2022 Patient encounter procedure DO Harlan Jenniferlong Work Phone: [facility] Work Phone: Start: 07-28-2022 Registered Recurring DO Harlan Furlong Work Phone: [facility] Start: 12-12-2021 End: 12-13-[address] HARLAN ALMEIDA Facility:[facility] Start: 11-24-2021 End: 11-25-[address] OLAF ANGUIANO Facility:[facility] Start: 07-18-2021 End: 07-18-2021 ambulatory Carol Mckinney Other [employer] Other Start: 07-18-2021 Office outpatient vi sit 15 minutes Carol Mckinney [facility] Start: 01-01-[address] MAC ALTAMIRANO Facili ty:[facility]1 Procedures Date Procedure Procedure Detail Performing Clinician Start: 07-08-2023 Follow-up visit Follow-up FERCHO HAM Start: 05-18-2023 Adult depression scr eening assessment Brandon Sotelo ETHICS MANAGER-RUBBER EXTRUSION MACHINE OPERATOR Work Phone: Start: 02-25-2023 DISCHARGE PATIENT TREVOR SIMPSONDIS Start: 02-25-2023 Magnesium [Mass/volu me] in Serum or Plasma CLAYTON BAMCONIDIS Start: 02-25-2023 RENAL FUNCTION PANEL NI CHOLAS JUWAN Start: 02-25-2023 Renal function panel Ni sharlene [...] 02-23-2023 TRANSFER PATIENT TO NEW UNIT CLAYTON CALVINDIS Start: 02-23-2023 TRANSFER PATIENT TO NEW UNIT CLAYTON BAMBAEL Start: 02-23-2023 CBC W Auto Different ial panel - Blood CLAYTON BAMBAKIDIS Start: 02-23-2023 Magnesium [Mass/volu me] in Serum or Plasma CLAYTON BAMBAKIDIS Start: 02-23-2023 RENAL FUNCTION PANEL NI CHOLAS JUWAN Start: 02-23-2023 Renal function panel Ad german Powell MD Work Phone: Start: 02-22-2023 FULL CODE CLAYTON GONZALEZ Start: 02-22-2023 WEIGH PATIENT CLAYTON HAWLEY Start: 02-22-2023 CT HEAD WO IV CONTRAST CLAYTON BAMBAKIDIS Start: 02-22-2023 Ct head/brain w/o co ntrast material Katherine Polanco MD Work Phone: Start: 02-22-2023 ADMIT TO INPATIENT TRAV OLAS CALVINDIS Start: 02-22-2023 Glucose [Mass/volume ] in Serum [...] CLAYTON HAWLEY Start: 02-17-2023 COAGULATION SCREEN TRAV HAWLEY Start: 02-17-2023 EXTRA URINE GALLAGHER TUBE N PROSPERMICHELLE HAWLEY Start: 02-17-2023 Hemoglobin A1c/Hemoglobin.total in Blood CLAYTON HAWLEY Start: 02-17-2023 MICROSCOPIC ONLY, URINE CLAYTON HAWLEY Start: 02-17-2023 STAPHYLOCOCCUS AUREU S/MRSA COLONIZATION, CULTURE CLAYTON HAWLEY Start: 02-17-2023 TYPE AND SCREEN LUCERO HAWLEY Start: 02-17-2023 URINALYSIS WITH REFL EX MICROSCOPIC AND CULTURE CLAYTON HAWLEY Start: 09-12-2022 X-ray of left foot DO Robert jimenes Furlong Work Phone: Start: 12-16-2021 Mammography Brandon Ca souravo ETHICS MANAGER-RUBBER EXTRUSION MACHINE OPERATOR Work Phone: Plan of Treatment Date Care Activity Detail Author Start: 04-25-2030 DTaP,Tdap and Td Vaccines (2 - Tdap) DTaP,Tdap and Td Vaccines (2 - Tdap) [facility] Start: 04-25-2030 DTaP/Tdap/Td Vaccine s (2 - Tdap) DTaP/Tdap/Td Vaccines (2 - Tdap) [facility] Start: 01-18-2025 Screening for malign ant neoplasm of colon Colonoscopy [facility] Comment on above: Postponed from 03/29 (Not Indicated) Start: 05-17-2024 Adult BMI Follow Up Plan Adult BMI Follow Up Plan [facility] Start: 05-17-2024 Adult BMI Screening Adult BMI Screen ing [facility] Start: 05-17-2024 Depression Screening Depression Scre ening [facility] Start: 05-17-2024 Tobacco Screening Tobacco Screening [facility] Start: 08-01-2023 Diabetic foot examination Diabetic Foot Exam [facility] Start: 05-19-2023 Hemoglobin A1c measurement Diabetes: Hemoglobin A1C [facility] Start: 05-06-2023 End: 05-06-2023 Patient encounter procedure 05/06/2023 2:00 PM EST Office Visit [facility] [address] [place] [phone] Fercho Ham MD [address] [facility] [address] [place] [address] [place] [phone] Start: 03-11-2023 End: 03-11-2023 Patient encounter procedure 03/11/2023 3:15 PM EST Office Visit [facility] [address] [place] [phone] Fercho Ham MD [address] [place] [address], [facility] [address] [place] [address] [place] [phone] Start: 12-16-2022 Screening for malign ant neoplasm of breast Mammogram [facility] Start: 2004 Screening for malign ant neoplasm of breast Mammogram [facility] Start: 1985 Screening for malign ant neoplasm of cervix [facility] Start: 1983 Urine screening for protein Diabetes: Urine Protein Screening [facility] Start: 1982 Diabetes mellitus screening Diabetes Screening [facility] Start: 1982 Hepatitis C screening Hepatitis C [facility] Start: 1974 Diabetic foot examination Diabetes: Foot Exam [facility] Start: 1974 Glaucoma screening Diabetes: R etinopathy Screening [facility] Start: 1970 Pneumococcal Vaccine : Pediatrics (0 to 5 Years) and At-Risk Patients (6 to 64 Years) (1 - PCV) Pneumococcal Vaccine: Pediatrics (0 to 5 Years) and At-Risk Patients (6 to 64 Years) (1 - PCV) [facility] Start: 1965 MMR Vaccines (1 of 1 - Standard series) MMR Vaccines (1 of 1 - Standard series) [facility] Start: 1964 COVID-19 Vaccine (#1) COVID-19 Vacci ne (#1) [facility] Start: 1964 Glaucoma screening Diabetic Op hthalmology Exam [facility] Start: 1964 HIV screening HIV Screening [facility] Start: 1964 Lipid panel Lipid Panel [facility] Start: 1964 Medicare Annual Wellness Visit Medicare Annual Wellness Visit (AWV) [facility] Start: 1964 Screening for malign ant neoplasm of colon [facility] Electrocardiogram, 12-lead PRN ACS symptoms Electrocardiogram, 12-lead PRN ACS symptoms ECG Routine As needed until discontinued starting 02/22/2023 [facility] Work Phone: Comment on above: As needed until disc ontinued starting 02/22/2023 End: 02-22-2023 Incentive spirometry Instruct Incentive spirometry Instruct Respiratory Care Routine Once for 1 Occurrences starting 02/22/2023 until 02/22/2023 [facility] Service Area Work Phone: Comment on above: Once for 1 Occurrenc es starting 02/22/2023 until 02/22/2023 Immunizations Immunization Date Immunization Notes Care Provider [facility] 12-11-2022 influenza, injectabl e, quadrivalent, preservative free Clayton Hawley MD Work Phone: [facility] 12-08-2021 influenza virus vaccine, unspecified formulation Brandon Sotelo ETHICS MANAGER-RUBBER EXTRUSION MACHINE OPERATOR Work Phone: [facility] 12-08-2021 influenza, injectabl e, quadrivalent, preservative free Clayton Hawley MD Work Phone: [facility] 02-07-2021 zoster vaccine recombinant Clayton Hawley MD Work Phone: [facility] 12-03-2020 influenza, injectabl e, quadrivalent, preservative free Clayton Hawley MD Work Phone: [facility] 12-03-2020 zoster vaccine recombinant Clayton Hawley MD Work Phone: [facility] 04-25-2020 diphtheria, tetanus toxoids and pertussis vaccine Clayton Hawley MD Work Phone: [facility] 01-12-2020 influenza, injectabl e, quadrivalent, preservative free Clayton Hawley MD Work Phone: [facility] 10-08-2018 influenza, injectabl e, quadrivalent, preservative free Clayton Hawley MD Work Phone: [facility] 12-25-2017 influenza, injectabl e, quadrivalent, preservative free Clayton Hawley MD Work Phone: [facility] 03-18-2017 Influenza, injectabl e, Madin Ballwin Canine Kidney, preservative free, quadrivalent Clayton Hawley MD Work Phone: [facility] 07-21-2002 hepatitis B vaccine, adult dosage Clayton Hawley MD Work Phone: [facility] Work Phone: 03-03-2002 hepatitis B vaccine, adult dosage Clayton Hawley MD Work Phone: [facility] Work Phone: 01-13-2002 hepatitis B vaccine, adult dosage Clayton Hawley MD Work Phone: [facility] Payers Date Payer Category Payer Self-pay [id number] 2021 Medicare [id number] 1964 Unknown [id number] 2.16.840.1.255106.3.579.2.593 1964 Unknown [id number] 2.16.840.1.202743.3.579.2.593 1964 Unknown [id number] 2.16.840.1.910133.3.579.2.593 1964 Unknown [id number] 2.16.840.1.841039.3.579.2.593 1964 Unknown [id number] 2.16.840.1.646407.3.579.2.593 1964 Unknown [id number] 2.16.840.1.572965.3.579.2.1244 1964 Unknown [id number] 2.16.840.1.451817.3.579.2.1247 1964 Unknown [id number] 2.16.840.1.397160.3.579.2.1247 1964 Unknown [id number] 2.16.840.1.312103.3.579.2.1247 1964 Unknown [id number] 2.16.840.1.182201.3.579.2.1247 1964 Unknown [id number] 2.16.840.1.068131.3.579.2.1286 1964 Unknown [id number] 2.16.840.1.018143.3.579.2.1286 1964 Unknown [id number] 2.16.840.1.765257.3.579.2.1286 1964 Unknown [id number] 2.16.840.1.089697.3.579.2.1286 1964 Unknown [id number] 2.16.840.1.381886.3.579.2.1286 1964 Unknown [id number] 2.16.840.1.731044.3.579.2.1259 1964 Unknown [id number] 2.16.840.1.083601.3.579.2.1259 1964 Unknown [id number] 2.16.840.1.501630.3.579.2.1259 1964 Unknown [id number] 2.16.840.1.067374.3.579.2.1259 1964 Unknown [id number] 2.16.840.1.485812.3.579.2.1245 1964 Unknown [id number] 2.16.840.1.877290.3.579.2.1245 1964 Unknown [id number] 2.16.840.1.984273.3.579.2.1245 1964 Unknown [id number] 2.16.840.1.992478.3.579.2.1245 1960 Medicare [id number] 2. 16.840.1.727678.19 1959 Medicare [id number] Medicare Medicare [id number] Unknown [id number] ODJFS [facility] MEDCAID [id number] Unknown [facility] [id number] Unknown [id number] 2.16.840.1.272381.3.579.2.531 Social History Date Type Detail Facility Unknown if ever smoked [employer] Other Start: 01-07-2023 End: 02-11-2023 Sex Assigned At [facility] Start: 07-18-2020 End: 12-03-2021 Tobacco smoking status NHIS Never smoked tobacco (finding) [facility] Start: 1965 Sex Assigned At Female F [facility] Start: 12-03-2021 End: 12-24-2022 Tobacco use and exposure Smokeless tobacco non-user [facility] Work Phone: Start: 01-07-2023 End: 02-11-2023 History of Social function [facility] Start: 1965 Sex Assigned At Not on file [facility] Work Phone: Start: 01-08-2023 End: 03-16-2023 Exposure to SARS-CoV-2 (event) Not sure [facility] Start: 02-22-2023 End: 03-16-2023 Alcohol intake Current drinker of alcohol (finding) [facility] Work Phone: How often to you hav e a drink containing alcohol? Never [facility] How many standard drinks containing alcohol do you have on a typical day? Patient does not drink [facility] Work Phone: Start: 02-17-2023 Alcohol Comment rare glass of wine [facility] Work Phone: Start: 05-18-2023 Alcohol intake Lifetime non-d giles (finding) [facility] Has the [employer], [employer] or [employer] threatened to shut off services in your home in past 12Mo No [facility] Are you now , , , , never or living with a partner? [facility] Do you feel stress - tense, restless, nervous, or anxious, or unable to sleep at night because your mind is troubled all the time - these days [OSQ] Rather much [facility] Medical Equipment Procedure Code Equipment Code Equipment Origin al Text Equipment Identifier Dates Graft Matrix, Du ral, Duragen Plus 2x2 (/) - [id number] Start: 02-22-2023 Cross Pin, Axs Self-Tap, 1.5 X 4mm - [id number] Start: 02-22-2023 Plate, 2h 10mm B ar Ultra Low Profile - [id number] Start: 02-22-2023 Clinical Notes 07-18-2021 to 05-18-2023 Brandon Sotelo, ETHICS MANAGER-RUBBER EXTRUSION MACHINE OPERATOR - 05/18/2023 1:40 PM Fahad Ham MD - 03/16/2023 1:00 PM Walter Hunter, PT - 02/25/2023 12:55 PM Lala Powell MD - 02/25/2023 5:20 AM EST Note Date & Type Note Facility 05-18-2023 History of Presen t illness Narrative Images from the original note were not included. [address] [place] [address] SUBJECTIVE: Patient ID: Ya Womack is a [...] Diagnosis Date Diabetes mellitus type 2, controlled ([facility]) Encounter for gastric sleeve procedure 04/13/2023 Dr. [...] Quigley 05/18/23 1415 documented in this encounter [facility] 03-16-2023 History of Presen t illness Narrative [...] Fercho Ham MD documented in this encounter [facility] Work Phone: 02-25-2023 History of Presen t illness Narrative Physical Therapy Therapy Communication Note Patient Name: Ya Womack Today's Date: 02/25/2023 Discipline: Physical Therapy Missed Visit Reason: Missed Visit Reason: (Pt declining, states she feels at baseline & indep without PT needs; anticipated dc home today.) Missed Time: Attempt 1220 02/25/23 at 12:55 PM - Magali Hunter PT Ya Womack is a 57 y.o. [...] evaluated the patient. I personally obtained the ordriguez and critical portions of the history and [...] for specific attendings. Please reach out via Dsg.nr. If you are not able to reach a resident in a timely fashion or if any urgent issue, please page. Camryn Barrios MD (Martin Stanton Semaan, Jitendra) - pager [phone] Dayami Velasco MD (Martin Stanton Semaan, Jitendra) Liberty Maldonado MD (Bethanie Chen, Catarino) - pager [phone] For the following providers - ([place], [place], Lara) - please [facility] the resident writing the note or page the residents above. On weekends of after 5pm, please page [phone]. Associated attestation - Fercho Ham MD - [...] SBA. Precautions: Hearing/Visual Limitations: WFL but slightly [place] Medical Precautions: Fall precautions Precautions Comment: SBP [...] Bathroom Toilet: Standard Prior Function: Level of E[place]: Independent with ADLs and functional transfers, Independent [...] AROM WFL, strength >/= 3+/5) Outcome Measures: [facility] Daily Activity Putting on and taking [...] Prior Function Per Pt/Caregiver Report Level of E[place]: Independent with ADLs and functional transfers, Independent [...] alternating marches in standing 5x Outcome Measures: [facility] Basic Mobility Turning from your back [...] only Sitting: Supervision or set-up only Transfer Car-gi-Atbao: Supervision or set-up only Transfer [id number]-[id number]: Supervision or set-up only Total Score: 22 [...] 03/09/23 Education Documentation Precautions, taught by Wandy Abreu PT at 02/23/2023 [...] while in bed - Dispo: transfer to [facility] 5 D/w Dr. Ham Residents to contact during the week between 6am to 5pm below regarding patient related issues for specific attendings. Please reach out via Dsg.nr. If you are not able to reach a resident in a timely fashion or if any urgent issue, please page. Camryn Barrios MD (Martin Stanton Semaan, Jitendra) - pager [phone] Dayami Velasco MD (Martin Stanton Semaan, Jitendra) Liberty Maldonado MD (Bethanie Chen, Catarino) - pager [phone] For the following providers - ([place], [place], Lara) - please [facility] the resident writing the note or page the residents above. On weekends of after 5pm, please page [id number]. Associated attestation - Fercho Ham MD - [...] for CSF leak. Pharmacy reviewed the patient's isfso-iz-tjfbipppz medications and allergies for accuracy. The list below reflects the updated VETERINARY PARASITOLOGIST list. Comments regarding how patient may be [...] discharge. Pharmacy has been updated to [facility]. Sources used to complete the med history include out patient fill history, OARRS, and patient interview. Patient was a good historian, confirmed all the meds they have been taking along with time of last dose. Below are additional concerns with the patient's VETERINARY PARASITOLOGIST list. -FACUNDO Myers PharmD Transitions of Care Pharmacist [facility] Please reach out via Secure Chat for questions, or if no response call Splyst or IntelliDOTRec documented in this encounter [facility] Work Phone: 02-25-2023 Hospital course Narrative Discharge [...] Center 03/11/2023 3:15 PM Fercho Ham MD [id number] [place] Camryn Barrios MD Associated attestation - [...] in the note. documented in this encounter [facility] Work Phone: 02-24-2023 Hospital Discharg tate Barrios MD - 02/24/2023 11:28 AM EST [...] to the ED. documented in this encounter [facility] Work Phone: 02-23-2023 Plan of care note [...] Outcome: Progressing Goal: Promote/optimize nutrition Outcome: Progressing [facility] 02-23-2023 Miscellaneous Notes The patient's goals for [...] (R) Operative Note Date: 02/22/2023 OR Location: [facility] OR Name: Ya Womack, : 1965, Age: 57 y.o., , Sex: female Diagnosis Pre-op Diagnosis * CSF leak [G96.00] Post-op Diagnosis * CSF leak [G96.00] Procedures Craniotomy Middle Fossa with mastodectomy 51900 - FL RESCJ/EXC LES ITPRL FOSSA SPACE APEX IDRL W/RPR Craniotomy Middle Fossa with mastoidectomy 98489 - FL RESCJ/EXC LES ITPRL FOSSA SPACE APEX IDRL W/RPR FL STRTCTC CPTR ASSTD PX CRANIAL INTRADURAL [80706] FL MICROSURG TQS REQ USE OPERATING MICROSCOPE [97114] FL INFRATEMPO MID CRANIAL FOSSA W/WO DCOMPR&/MOBI [85328] FL IONM 1 ON 1 IN OR W/ATTENDANCE EACH 15 MINUTES [15703] Surgeons Panel 1: * Clayton Hawley - Primary Panel 2: * Fercho Ham - Primary Resident/Fellow/Other Telesales Agent: Surgeon(s) and Role: Panel 1: * Katherine [...] 1285 mL Specimen: No specimens collected Staff: Cutter Down: Monae Jean RN Relief Cutter Down: mAanda Benavides RN Relief Scrub: Katie Jennings RN Scrub Person: Andrew Mahogany; Anisa Strong Drains and/or Catheters: Urethral Catheter [...] MATRIX, DURAL, DURAGEN PLUS 2X2 (1/PK) - [id number] Implanted Neuro Interventional Implant CROSS PIN, AXS SELF-TAP, 1.5 X 4MM - [id number] Implanted Screw PLATE, YY 6H 8MM BAR ULTRA LOW PROFILE - [id number] Implanted Screw PLATE, 2H 10MM BAR ULTRA LOW PROFILE - [id number] Implanted Findings: Indications: Ya Womack is an [...] (R) Operative Note Date: 02/22/2023 OR Location: [facility] OR Name: Ya Womack, : 1965, Age: 57 y.o., , Sex: female Diagnosis Pre-op Diagnosis * CSF leak [G96.00] Post-op Diagnosis * CSF leak [G96.00] Procedures Craniotomy Middle Fossa with mastodectomy 45493 - FL RESCJ/EXC LES ITPRL FOSSA SPACE APEX IDRL W/RPR Craniotomy Middle Fossa with mastoidectomy 26521 - FL RESCJ/EXC LES ITPRL FOSSA SPACE APEX IDRL W/RPR FL STRTCTC CPTR ASSTD PX CRANIAL INTRADURAL [78179] FL MICROSURG TQS REQ USE OPERATING MICROSCOPE [10835] FL INFRATEMPO MID CRANIAL FOSSA W/WO DCOMPR&/MOBI [59003] FL IONM 1 ON 1 IN OR W/ATTENDANCE EACH 15 MINUTES [12629] Surgeons Panel 1: * Clayton Hawley - Primary Panel 2: * Fercho Ham - Primary Resident/Fellow/Other Telesales Agent: Surgeon(s) and Role: Panel 1: * Katherine [...] 1285 mL Specimen: No specimens collected Staff: Cutter Down: Monae Jean RN Relief Cutter Down: Amanda Benavides RN Relief Scrub: Katie Jennings [...] MATRIX, DURAL, DURAGEN PLUS 2X2 (1/PK) - [id number] Implanted Neuro Interventional Implant CROSS PIN, AXS SELF-TAP, 1.5 X 4MM - [id number] Implanted Screw PLATE, YY 6H 8MM BAR ULTRA LOW PROFILE - [id number] Implanted Screw PLATE, 2H 10MM BAR ULTRA LOW PROFILE - [id number] Implanted Findings: Indications: Ya Womack is an [...] (R) Operative Note Date: 02/22/2023 OR Location: [facility] OR Name: Ya Womack, : 1965, Age: [...] for otorrhea, 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 Secondary repair of dural/cerebrospinal fluid leak [14536-88] - Right 3. Needle electromyography; cranial nerve supplied muscle(s), unilateral - Facial nerve. - Right 4. Microsurgical techniques, requiring use of operating microscope - Right 5. Right ear tube removal with underlay myringoplasty [88370] Surgeons Panel 1: * Clayton Hawley - Primary Panel 2: * Fercho Ham - Primary Resident/Fellow/Other Telesales Agent: Surgeon(s) and Role: Panel 1: * Katherine [...] 1285 mL Specimen: No specimens collected Staff: Cutter Down: Monae Jean RN Relief Cutter Down: Amanda Benavides RN Relief Scrub: Katie Jennings [...] MATRIX, DURAL, DURAGEN PLUS 2X2 (1/PK) - [id number] Implanted Neuro Interventional Implant CROSS PIN, AXS SELF-TAP, 1.5 X 4MM - [id number] Implanted Screw PLATE, YY 6H 8MM BAR ULTRA LOW PROFILE - [id number] Implanted Screw PLATE, 2H 10MM BAR ULTRA LOW PROFILE - [id number] Implanted Findings: 1. Lumbar drain placed by [...] had reached dura along all edges, a Stratford 1 dissector was used to carefully elevate [...] At this stage, bactroban, telfa, and a Juliann dressing were then placed over the incision. [...] note for details. Date: 02/22/2023 OR Location: [facility] OR Name: Ya Womack, : 1965, Age: 57 y.o., , Sex: female Diagnosis Pre-op Diagnosis * CSF leak [G96.00] Post-op Diagnosis * CSF leak [G96.00] Procedures Craniotomy Middle Fossa with mastodectomy 59524 - FL RESCJ/EXC LES ITPRL FOSSA SPACE APEX IDRL W/RPR Craniotomy Middle Fossa with mastoidectomy 88616 - FL RESCJ/EXC LES ITPRL FOSSA SPACE APEX IDRL W/RPR FL STRTCTC CPTR ASSTD PX CRANIAL INTRADURAL [31396] FL MICROSURG TQS REQ USE OPERATING MICROSCOPE [07837] FL INFRATEMPO MID CRANIAL FOSSA W/WO DCOMPR&/MOBI [78441] FL IONM 1 ON 1 IN OR W/ATTENDANCE EACH 15 MINUTES [84274] Surgeons Panel 1: * Clayton Hawley - Primary Panel 2: * Fercho Ham - Primary Resident/Fellow/Other Telesales Agent: Surgeon(s) and Role: Panel 1: * Katherine [...] -215 mL Specimen: No specimens collected Staff: Cutter Down: Monae Jean RN Scrub Person: Andrew Vides; Anisa Strong Findings: good repair of CSF leak Complications: None; patient tolerated the procedure well. Disposition: PACU - hemodynamically stable. Condition: stable Specimens Collected: No specimens collected Attending Attestation: Clayton Hawley documented in this encounter [facility] Work Phone: 02-22-2023 Plan of care note Problem: Skin Goal: Prevent/manage excess moisture Outcome: Progressing Goal: Prevent/minimize sheer/friction injuries Outcome: Progressing Goal: Promote/optimize nutrition Outcome: Progressing The patient's goals for the shift include no pain The clinical goals for the shift include stable neuro exam [facility] 02-22-2023 Plan of care note The patient's goals for the shift include improved pain The clinical goals for the shift include stable neuro exam [facility] Work Phone: 02-22-2023 Hospital Note Formatting of [...] in stable condition with follow up arranged. [facility] Work Phone: 02-22-2023 Note Formatting of this n ote is different from the original. Craniotomy Middle Fossa with mastodectomy (R) Operative Note Date: 02/22/2023 OR Location: [facility] OR Name: Ya Womack, : 1965, Age: 57 y.o., , Sex: female Diagnosis Pre-op Diagnosis * CSF leak [G96.00] Post-op Diagnosis * CSF leak [G96.00] Procedures Craniotomy Middle Fossa with mastodectomy 38212 - FL RESCJ/EXC LES ITPRL FOSSA SPACE APEX IDRL W/RPR Craniotomy Middle Fossa with mastoidectomy 97655 - FL RESCJ/EXC LES ITPRL FOSSA SPACE APEX IDRL W/RPR FL STRTCTC CPTR ASSTD PX CRANIAL INTRADURAL [84751] FL MICROSURG TQS REQ USE OPERATING MICROSCOPE [32311] FL INFRATEMPO MID CRANIAL FOSSA W/WO DCOMPR&/MOBI [77589] FL IONM 1 ON 1 IN OR W/ATTENDANCE EACH 15 MINUTES [36690] Surgeons Panel 1: * Clayton Hawley - Primary Panel 2: * Fercho Ham - Primary Resident/Fellow/Other Telesales Agent: Surgeon(s) and Role: Panel 1: * Katherine [...] 1285 mL Specimen: No specimens collected Staff: Cutter Down: Monae Jean RN Relief Cutter Down: Amanda Benavides RN Relief Scrub: Katie Jennings [...] MATRIX, DURAL, DURAGEN PLUS 2X2 (/PK) - [id number] Implanted Neuro Interventional Implant CROSS PIN, AXS SELF-TAP, 1.5 X 4MM - [id number] Implanted Screw PLATE, YY 6H 8MM BAR ULTRA LOW PROFILE - [id number] Implanted Screw PLATE, 2H 10MM BAR ULTRA LOW PROFILE - [id number] Implanted Findings: Indications: Ya Womack is an [...] Condition: Additional Details: Attending Attestation: Clayton Hawley [facility] Work Phone: 02-22-2023 Note Formatting of this n ote is different from the original. Craniotomy Middle Fossa with mastodectomy (R) Operative Note Date: 02/22/2023 OR Location: [facility] OR Name: Ya Womack, : 1965, Age: 57 y.o., , Sex: female Diagnosis Pre-op Diagnosis * CSF leak [G96.00] Post-op Diagnosis * CSF leak [G96.00] Procedures Craniotomy Middle Fossa with mastodectomy 61379 - FL RESCJ/EXC LES ITPRL FOSSA SPACE APEX IDRL W/RPR Craniotomy Middle Fossa with mastoidectomy 54020 - FL RESCJ/EXC LES ITPRL FOSSA SPACE APEX IDRL W/RPR FL STRTCTC CPTR ASSTD PX CRANIAL INTRADURAL [57579] FL MICROSURG TQS REQ USE OPERATING MICROSCOPE [35878] FL INFRATEMPO MID CRANIAL FOSSA W/WO DCOMPR&/MOBI [74233] FL IONM 1 ON 1 IN OR W/ATTENDANCE EACH 15 MINUTES [34342] Surgeons Panel 1: * Clayton Hawley - Primary Panel 2: * Fercho Ham - Primary Resident/Fellow/Other Telesales Agent: Surgeon(s) and Role: Panel 1: * Katherine [...] 1285 mL Specimen: No specimens collected Staff: Cutter Down: Monae Jean RN Relief Cutter Down: Amanda Benavides RN Relief Scrub: Katie Jennings [...] MATRIX, DURAL, DURAGEN PLUS 2X2 (1/PK) - [id number] Implanted Neuro Interventional Implant CROSS PIN, AXS SELF-TAP, 1.5 X 4MM - [id number] Implanted Screw PLATE, YY 6H 8MM BAR ULTRA LOW PROFILE - [id number] Implanted Screw PLATE, 2H 10MM BAR ULTRA LOW PROFILE - [id number] Implanted Findings: Indications: Ya Womack is an [...] Condition: Additional Details: Attending Attestation: Clayton Hawley [facility] Work Phone: 02-22-2023 Note Formatting of this n ote is different from the original. Craniotomy Middle Fossa with mastodectomy (R) Operative Note Date: 02/22/2023 OR Location: [facility] OR Name: Ya Womack, : 1965, Age: [...] for otorrhea, and temporal skull base encephalocele [38012-74] - Middle Fossa Approach for repair of tegmen encephalocele and CSF leak, Duraplasty - Right 2. Secondary repair of dural/cerebrospinal fluid leak [61543-89] - Right 3. Needle electromyography; cranial nerve supplied muscle(s), unilateral - Facial nerve. - Right 4. Microsurgical techniques, requiring use of operating microscope - Right 5. Right ear tube removal with underlay myringoplasty [25847] Surgeons Panel 1: * Clayton Hawley - Primary Panel 2: * Fercho Ham - Primary Resident/Fellow/Other Telesales Agent: Surgeon(s) and Role: Panel 1: * Katherine [...] 1285 mL Specimen: No specimens collected Staff: Cutter Down: Monae Jean RN Relief Cutter Down: Amanda Benavides RN Relief Scrub: Katie Jennings [...] MATRIX, DURAL, DURAGEN PLUS 2X2 (/) - [id number] Implanted Neuro Interventional Implant CROSS PIN, AXS SELF-TAP, 1.5 X 4MM - [id number] Implanted Screw PLATE, YY 6H 8MM BAR ULTRA LOW PROFILE - [id number] Implanted Screw PLATE, 2H 10MM BAR ULTRA LOW PROFILE - [id number] Implanted Findings: 1. Lumbar drain placed by [...] had reached dura along all edges, a Stratford 1 dissector was used to carefully elevate [...] At this stage, bactroban, telfa, and a Cottle dressing were then placed over the incision. [...] entire duration. See resident note for details. [facility] Work Phone: 02-22-2023 Note Formatting of this n ote is different from the original. Date: 02/22/2023 OR Location: [facility] OR Name: Ya Womack, : 1965, Age: 57 y.o., , Sex: female Diagnosis Pre-op Diagnosis * CSF leak [G96.00] Post-op Diagnosis * CSF leak [G96.00] Procedures Craniotomy Middle Fossa with mastodectomy 47690 - FL RESCJ/EXC LES ITPRL FOSSA SPACE APEX IDRL W/RPR Craniotomy Middle Fossa with mastoidectomy 53089 - FL RESCJ/EXC LES ITPRL FOSSA SPACE APEX IDRL W/RPR FL STRTCTC CPTR ASSTD PX CRANIAL INTRADURAL [07439] FL MICROSURG TQS REQ USE OPERATING MICROSCOPE [51355] FL INFRATEMPO MID CRANIAL FOSSA W/WO DCOMPR&/MOBI [07278] FL IONM 1 ON 1 IN OR W/ATTENDANCE EACH 15 MINUTES [09469] Surgeons Panel 1: * Clayton Hawley - Primary Panel 2: * Fercho Ham - Primary Resident/Fellow/Other Telesales Agent: Surgeon(s) and Role: Panel 1: * Katherine [...] -215 mL Specimen: No specimens collected Staff: Cutter Down: Monae Jean RN Scrub Person: Andrew Strong Findings: good repair of CSF leak Complications: None; patient tolerated the procedure well. Disposition: PACU - hemodynamically stable. Condition: stable Specimens Collected: No specimens collected Attending Attestation: Clayton Hawley [facility] Work Phone: 02-22-2023 History and physical note [...] mouth once daily., Disp: , Rfl: HYDROcodone-acetaminophen ([place]) 5-325 mg tablet, Take by mouth., Disp: [...] proceed. We will proceed today with surgery. [facility] Work Phone: 02-22-2023 History and physical note [...] mouth once daily., Disp: , Rfl: HYDROcodone-acetaminophen ([place]) 5-325 mg tablet, Take by mouth., Disp: [...] to the H&P. Source Note - Renae Jose Miguel Bowles, ETHICS MANAGER-RUBBER EXTRUSION MACHINE OPERATOR - 02/17/2023 1:00 PM EST CPM/PAT Evaluation [...] Past Medical History: Diagnosis Date Angina pectoris ([facility]) Echo on 12/25/22 Anxiety Bipolar disorder ([facility]) CSF leak 01/18/2023 Neuro: Clayton puga Depression [...] am and 3 tablets in pm Historical Provider, ropinirole HCl (ROPINIROLE ORAL) Take 1 mg [...] 01/07/2023 01/07/23 02/17/23 Fercho Ham MD HYDROcodone-acetaminophen ([place]) 5-325 mg tablet Take by mouth. 02/17/23 [...] stress-induced ischemia-normal dobutamine stress echo. Performed at [facility] in [facility]- found in care everywhere tab. [...] Straw, Yellow Appearance, Urine Clear Clear Specific [place], Urine 1.019 1.005 - 1.035 pH, Urine [...] No significant growth documented in this encounter [facility] Work Phone: 02-22-2023 Attending History and physical note H&P reviewed. The patient was examined and there are no changes to the H&P. Source Note - VENUS Allen - 02/17/2023 1:00 PM EST CPM/PAT Evaluation Name: Ya Womack (Ya Womakc) /Age: 103/29/1965/57 y.o. Visit Type: In-Person Chief [...] am and 3 tablets in pm Historical Provider, ropinirole HCl (ROPINIROLE ORAL) Take 1 mg [...] 01/07/2023 01/07/23 02/17/23 Fercho Ham MD HYDROcodone-acetaminophen ([place]) 5-325 mg tablet Take by mouth. 02/17/23 [...] stress-induced ischemia-normal dobutamine stress echo. Performed at [facility] in [facility]- found in care everywhere tab. [...] Straw, Yellow Appearance, Urine Clear Clear Specific [place], Urine 1.019 1.005 - 1.035 pH, Urine [...] Ref Range Urine Culture No significant growth edicine [facility] Work Phone: 01-18-2023 History of Presen [...] x 14 days and recommended for R MCF for repair of CSF leak. Patient presents [...] (CYMBALTA) 120 mg, oral, Daily RT HYDROcodone-acetaminophen ([place]) 5-325 mg tablet oral hydrOXYzine pamoate (VISTARIL) [...] the surgical procedure. documented in this encounter [facility] Work Phone: 10-08-2022 Evaluation note Encounter Date [...] understanding and is agreeable to treatment plan [employer] Other 07-08-2023 Evaluation note* Encounter Date Diagnosis [...] no improvement in 2 to 3 days [employer] Other 05-13-2022 Evaluation note* Encounter Date Diagnosis [...] fractu re home care material was printed [employer] Other Evalunfdkl noteNo assessment information available [facility] Work Phone: evaluation note* Diagnosis CSF leak- Primary Other specified disorder of nervous system documented in this encounter [facility] Work Phone: Evaluation note* Diagnosis CSF leak- [...] Obesity Obesity, unspecified documented in this encounter [facility] Work Phone: Evaluation note* Diagnosis 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 documented in this encounter [facility] Work Phone: Evaluation note* Diagnosis Onset Date Resolution Status Gout acute [facility] Work Phone: Evaluation note* Diagnosis Other eczema- Primary Bipolar disorder, current episode mixed, mild (CMS-HCC) [facility] - [facility]* Type Description Date Medical History hypertension Medical History histoplasmosis Surgical History , cholecystectomy, Surgical History [facility] Narrative - Reported* Type Description Date Medical History hypertension Medical History histoplasmosis Medical History ANXIETY AND DEPRESSION Surgical History , cholecystectomy, Surgical History hysterectomy 1993 Hospitalization History [facility] Other [facility] general Narrative - Reported* Type Description Date Medical History hypertension Medical History histoplasmosis Medical History ANXIETY AND DEPRESSION Surgical History , cholecystectomy, Surgical History hysterectomy 1993 Surgical History tube in right ear 10/2022 Hospitalization History [facility] Other Instructions* Attachments The following attachments cannot be sent through Care Everywhere. * Eczema (atopic dermatitis) (Croatian) [facility] Family History No Family [...] and content) DATE CREATED AUTHOR 03/16/2019 [facility] DATE CREATED AUTHOR AUTHOR'S ORGANIZ ATION 05/02/2021 [facility] DATE CREATED AUTHOR AUTHOR'S ORGANIZ ATION 12/16/2021 [facility] DATE CREATED AUTHOR AUTHOR'S ORGANIZ ATION 03/21/2023 [facility] DATE CREATED AUTHOR AUTHOR'S ORGANIZ ATION 07/09/2023 [facility] DATE CREATED AUTHOR AUTHOR'S ORGANIZ ATION 09/27/2023 [facility] DATE CREATED AUTHOR AUTHOR'S ORGANIZ ATION 09/28/2023 [facility] DATE CREATED AUTHOR AUTHOR'S ORGANIZ ATION 10/06/2023 [facility] DATE CREATED AUTHOR AUTHOR'S ORGANIZ ATION 11/25/2023 [facility] REASON FOR VISIT (unrecogniz ed section and content) Specialty Diagnoses / Procedures Referred By Jeffry t Referred To Contact Diagnoses CSF leak CSF leak [G96.00] Procedures FL RESCJ/EXC LES ITPRL FOSSA SPACE APEX IDRL W/RPR FL RESCJ/EXC LES ITPRL FOSSA SPACE APEX IDRL W/RPR FL STRTCTC CPTR ASSTD PX CRANIAL INTRADURAL FL MICROSURG TQS REQ USE OPERATING MICROSCOPE FL INFRATEMPO MID CRANIAL FOSSA W/WO DCOMPR&/MOBI FL IONM 1 ON 1 IN OR W/ATTENDANCE EACH 15 MINUTES Craniotomy Middle Fossa with mastodectomy Craniotomy Middle [place] [address] [facility] Department [place] [address] [facility] [place] [address] [place] [address] Referral ID Status Reason Start Date Expiration Date Visits Re quested Visits Authorized [id number] 1 1 Reason Comments Post-op Visit Stitch [...] Provider Active DANA Shook Attending Provider Active Manager Of Case Management Relationship Specialty Start Date End Date Harlan Almeida DO [address], [facility] [place] [address] PCP - General Family Medicine 12/09/22 Manager Of Case Management Relationship Specialty Start Date End Date Harlan Almeida DO [address], [place] [address] PCP - General Family Medicine 12/09/22 Manager Of Case Management Relationship Specialty Start Date End Date Harlan Almeida DO [address], [place] [address] PCP - General Family Medicine 12/09/22 Manager Of Case Management Relationship Specialty Start Date End Date Harlan Almeida DO [address], [place] [address] PCP - General Family Medicine 01/11/20 Goals [...] Reason: Patient/family refused)0613 (Given - Provider: Laverne Shook RN)1200 (Given - Provider: Daily Mortensen, SOLITARIO)1800 (Due) amLODIPine (Norvasc) tablet 10 mg 10 mg, oral, Daily RT, First dose on Wed02/22/23 at 1300 0700 (Not Given - Provider: Ron Marrero RN - Reason: Contraindicated - Comment: soft bps) 0542 (MAR Hold - Provider: Automatic Transfer Provider - Reason: Unreviewed Transfer Orders)0653 (MAR Unhold - Provider: Gilberto Castellon MD)0947 (Given - Provider: Giuseppe Thompson LPN) 0613 (Given - Provider: Laverne Shook RN) atorvastatin (Lipitor) tablet 10 mg 10 mg, oral, Nightly, First dose on Wed02/22/23 at 2100 203 (Given - Provider: Janett Zhou RN) 0542 (MAR Hold - Provider: Automatic Transfer Provider - Reason: Unreviewed Transfer Orders)0653 (MAR Unhold - Provider: Gilberto Castellon MD)2015 (Given - Provider: Laverne Shook RN) 2100 (Due) busPIRone (Buspar) tablet 10 mg 10 mg, oral, 2 times daily, First dose on Wed02/22/23 at 1300 0817 (Given - Provider: Neptali Robbins RN)2038 (Given - Provider: Janett Zhou RN) 0542 (MAR Hold - Provider: Automatic Transfer Provider - Reason: Unreviewed Transfer Orders)0653 (MAR Unhold - Provider: Gilberto Castellon MD)0950 (Given - Provider: Giuseppe Thompson LPN)2014 (Given - Provider: Laverne Shook RN) 0844 (Given - Provider: Daily Mortensen, SOLITARIO)2100 (Due) ceFAZolin in dextrose (iso-os) (Ancef) IVPB 2 g 2 g, intravenous, Administer over 30 Minutes, Every 8 hours, First dose on 12/19/23 at 0715, For 3 days, premix bag, Dosing of this medication varies based on severity of illness. Does this patient have sepsis or concern for sepsis (probable or documented infection plus systemic manifestations of infection)? 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 0817 (Given - Provider: Netpali Robbins RN) 0542 (MAY Hold - Provider: [...] Comment: schedule conflict dose due at 0800)0653 (MAR Unhold - Provider: Gilberto Castellon MD)0953 (Given - Provider: Giuseppe Thompson LPN)1640 (Given - Provider: Chanda Keita RN)2358 (Given - Provider: Laverne Shook RN) 0613 (Given - Provider: Laverne Shook, SOLITARIO)1400 (Not Given - Provider: Daily Mortensen RN - Reason: Patient/family refused - Comment: pt being discharged)2200 (Due) lamoTRIgine (LaMICtal) tablet 100 mg 100 mg, oral, 2 times daily, First dose on Wed02/22/23 at 1430 0817 (Given - Provider: Neptali Robbins RN)2038 (Given - Provider: Janett Zhou RN) 0542 (MAR Hold - Provider: Automatic Transfer Provider - Reason: Unreviewed Transfer Orders)0653 (MAR Unhold - Provider: Gilberto Castellon MD)0949 (Given - Provider: Giuseppe Thompson LPN)2016 (Given - Provider: Laverne Shook RN) 0844 (Given - Provider: Daily Mortensen RN)2100 (Due) levETIRAcetam (Keppra) tablet 500 mg 500 mg, oral, 2 times daily, First dose on Wed02/22/23 at 1300, For 7 days 0817 (Given - Provider: Neptali Robbins RN)2037 [...] Orders)0653 (MAY Unhold - Provider: Gilberto Castellon MD)0949 (Given - Provider: Giuseppe Thompson LPN) 0844 (Given - Provider: Daily Mortenesn, SOLITARIO) magnesium sulfate IV 2 g (COMPLETED) 2 g, intravenous, at 25 mL/hr, Administer over 2 Hours, Once, On Wed02/23/23 at 0430, For 1 dose 0448 (New Bag - Provider: Ron Marrero, RN)0648 (Stopped - Provider: Ron Marrero, RN) primidone (Mysoline) tablet 150 mg 150 [...] Thompson LPN) 0844 (Given - Provider: Daily Mortensen, SOLITARIO) rOPINIRole (Requip) tablet 1 mg 1 mg, oral, Every 12 hours, First dose on Wed02/22/23 at 1400 1219 (Given - Provider: Neptali Robbins RN)203 (Given - Provider: Janett Zhou RN) 0542 (MAY Hold - Provider: Automatic Transfer Provider - Reason: Unreviewed Transfer Orders)0653 (MAY Unhold - Provider: Gilberto Castellon MD)0952 (Given - Provider: Giuseppe Thompson LPN)2014 (Given - Provider: Laverne Shook RN) 0844 (Given - Provider: Daily Mortensen RN)2100 (Due - Provider: Jony Ornelas, MartinD) sennosides-docusate sodium (Shirlene-Colace) 8.6-50 mg per tablet 2 tablet 2 tablet, oral, 2 times daily, First dose on Wed02/22/23 at 1430, Bowel Regimen - for prevention of constipation Hold for loose stools 0817 (Given - Provider: Neptali Robbins RN)203 (Given - Provider: Janett Zhou RN) 0542 (MAY Hold - Provider: Automatic Transfer Provider - Reason: Unreviewed Transfer Orders)0653 (MAR Unhold - Provider: Gilberto Castellon MD)0952 (Given - Provider: Giuseppe Thompson LPN)2015 (Given - Provider: Laverne Shook, SOLITARIO) 0900 (Not Given - Provider: Daily Mortensen RN - Reason: Patient/family refused)2099 (Due) sodium chloride 0.9 % bolus 1,000 [...] (Given - Provider: Ron Marrero RN) 0542 ([facility] Hold - Provider: Automatic Transfer Provider - Reason: Unreviewed Transfer Orders)0653 ([facility] Unhold - Provider: Gilberto Castellon MD) hydrOXYzine pamoate (Vistaril) capsule 50 mg 50 mg, oral, 3 times daily PRN, itching, Starting on Wed02/22/23 at 1256 0542 ([facility] Hold - Provider: Automatic Transfer Provider - Reason: Unreviewed Transfer Orders)0653 ([facility] Unhold - Provider: Gilberto Castellon MD) naloxone (Narcan) injection 0.2 mg 0.2 mg, intravenous, Every 5 min PRN, respiratory depression, Starting on Wed02/22/23 at 1256, If respiratory rate is less than 8 breaths/minute or patient is difficult to arouse stop any narcotics and contact physician. Administer slow IV push. Repeat as ordered until patient's respiratory rate is greater than 12 breaths/minute. 0542 ([facility] Hold - Provider: Automatic Transfer Provider - Reason: Unreviewed Transfer Orders)0653 ([facility] Unhold - Provider: Gilberto Castellon MD) ondansetron [...] IV Push, administer over 3-5 minutes. 0542 ([facility] Hold - Provider: Automatic Transfer Provider - Reason: Unreviewed Transfer Orders)0653 ([facility] Unhold - Provider: Gilberto Castellon MD) ondansetron (Zofran) tablet 4 mg(Linked Group 1) 4 mg, oral, Every 8 hours PRN, nausea/vomiting, first line, Starting on Wed02/22/23 at 1256, 1st Line. Use oral route first, if possible. If inadequate response within 60 minutes, proceed to next-line agent for same PRN reason or contact provider if no further options ordered. 0542 ([facility] Hold - Provider: Automatic Transfer Provider - Reason: Unreviewed Transfer Orders)0653 ([facility] Unhold - Provider: Gilberto Castellon MD) oxyCODONE (Roxicodone) immediate release tablet 10 mg 10 mg, oral, Every 4 hours PRN, pain severe (7-10), first line, Starting on Wed02/22/23 at 1256, May be given with acetaminophen tablet., If ordered PRN for pain, nurse is permitted to administer this medication for higher pain scores based on patient preference? Yes 408 (Not Given - Provider: Ron Marrero RN - Reason: Contraindicated - Comment: soft bp)2036 (Given - Provider: Janett Zhou RN) 0542 ([facility] Hold - Provider: Automatic Transfer Provider - Reason: Unreviewed Transfer Orders)0653 ([facility] Unhold - Provider: Gilberto Castellon MD) oxyCODONE [...] (Given - Provider: Neptali Robbins RN) 0542 ([facility] Hold - Provider: Automatic Transfer Provider - Reason: Unreviewed Transfer Orders)0653 ([facility] Unhold - Provider: Gilberto Castellon MD)0952 (Given [...] BE BASED ON THE PRIMARY CLINICAL RECORDS. [facility]. provides no warranty or guarantee of the accuracy or completeness of information in this document.
== END 2023-12-21 11:20 | disposition home or self-care (01) ==
LOC: LAB 11:21
PROVIDERS: PCP Family Medicine; Visit Provider Psychiatry & Neurology Neurology
DX: D64.9 Anemia, unspecified (principal)
CPT/HCPCS: 36415; 82728

== ENCOUNTER 2024-03-24 07:43 | Outpatient (OUT) | payer MEDICARE, SELFPAY ==
--- OUTSIDE RECORDS SUMMARY | 2024-03-24 07:51 | XMS_ITS | CCD ---
Author Organization [facility] Care Team Providers Care Systems Specialist Name Role Phone Carol Mckinney Unavailable ANNMARIE, DR OLAF Agudelo Admitting Unavailable KUNS, DR OLAF Agudelo Attending Unavailable FURLONG, DR HARLAN Esposito Primary Care Unavailable KUNS, DR OLAF Agudelo Consulting Unavailable DAWNA, DR WATTS Admitting Unavailable DAWNA, DR WATTS Attending Unavailable FURLONG, DR HARLAN Esposito Primary Care Unavailable KUNS, DR OLAF Agudelo Admitting Unavailable KUNS, DR OLAF Agudelo Attending Unavailable FURLONG, DR HARLAN Esposito Primary Care Unavailable KUNS, DR OLAF Agudelo Consulting Unavailable FURLONG, DR HARLAN Esposito Admitting Unavailable FURLONG, DR HARLAN Esposito Attending Unavailable FURLONG, DR HARLAN Esposito Primary Care Unavailable FURLONG, DR HARLAN Esposito Consulting Unavailable FABIUS, DR GINI Chacon Consulting Unavailable DO Harlan Almeida Primary Care Provider MD Xena Longo Attending Provider [phone] DANA Mckinney Attending Provider Harmony Khan Unavailable Harlan Almeida DO Primary Care Provider FERCHO HAM Attending Unavailable JOSE ALEJANDROLONG, HARLAN BROOKLYNN Primary Care Unavailab le Harlan Almeida DO Primary Care Provider QUIN CANDELARIO Attending Unavailable JOSE ALEJANDROLONG, HARLAN OVERTON Primary Care Unavailab FERCHO Mantilla Attending Unavailable JOSE ALEJANDROLONG, HARLAN BROOKLYNN Primary Care Unavailab FERCHO Mantilla Attending Unavailable JOSE ALEJANDROLONG, HARLAN BROOKLYNN Primary Care Unavailab FERCHO Mantilla Attending Unavailable JOSE ALEJANDROLONG, HARLAN BROOKLYNN Primary Care Unavailab Deepak Verduzco Admitting Unavailab Deepak Verduzco Attending Unavailab le Furlong Harlan Primary Care Unavailable CLAYTON HAWLEY Attending Unavailab le FURLONG, HARLANASH OVERTON Primary Care Unavailab le CLAYTON HAWLEY Admitting Unavailab le FURLONG, HARLAN BROOKLYNN Primary Care Unavailab le FURLONG, HARLAN OVERTON Referring Unavailab michelle NEVAREZEENFERCHO Attending Unavailable FURLONG, HARLAN OVERTON Primary Care Unavailab le FURLONG, HARLAN BROOKLYNN Primary Care Unavailab le Furlong Harlan MOISE Primary Care Provider BRANDON SOTELO Attending Unavailable FURLONG, HARLAN Esposito Referring Unavailable FURLONG, HARLAN Esposito Primary Care Unavailable OLAF ANGUIANO Attending Unavailable FURLONG, HARLAN Esposito Referring Unavailable FURLONG, HARLAN Esposito Primary Care Unavailable FURLONG, HARLAN Esposito Attending Unavailable FURLONG, HARLAN Esposito Referring Unavailable FURLONG, HARLAN G Primary Care Unavailable OLAF ANGUIANO Attending Unavailable FURLONG, HARLAN Esposito Referring Unavailable FURLONG, HARLAN Esposito Primary Care Unavailable FURLONG, HARLAN Esposito Attending Unavailable FURLONG, HARLAN Esposito Referring Unavailable FURLONG, HARLAN Esposito Primary Care Unavailable LEONCIO BINGHAM Attending Unavailable FURLONG, HARLAN Esposito Referring Unavailable FURLONG, HARLAN Esposito Primary Care Unavailable LEONCIO BINGHAM Referring Unavailable FURLONG, HARLAN Esposito Primary Care Unavailable LEONCIO BINGHAM Referring Unavailable FURLONG, HARLAN G Primary Care Unavailable MEÑO GOMEZ Attending Unavailable MEÑO GOMEZ Referring Unavailable MEÑO GOMEZ Attending Unavailable TAWANNA ESTRELLA Attending Unavailable MAC TONEY Attending Unavailable MEÑO GOMEZ Attending Unavailable MEÑO GOMEZ Attending Unavailable Medications Current [...] (1 source) Opioid Agonist HYDROcodone-acet am inophen ([place]) 5-325 mg tablet Take by mouth. 0 Active [id number] 200 actuat albuterol 0.09 mg/actuat metered dose [...] Active busPIRone hydrochloride 10 mg oral tablet (20 sources) Start: 12-17-2022 take 1 tablet by mouth twice daily busPIRone (BUSPAR) 10 mg tablet take 1 tablet by mouth twice a day 06/28/2023 Active Start: 06-16-2020 End: 07-22-2020 take 15 mg by mouth three times daily Buspirone Active 15 MG PO Three times daily 42 July 22, 2020 8:07am ceFAZolin 2000 mg injection (1 source) Cephalosporin [...] DULoxetine 60 mg delayed release oral capsule (20 sources) Serotonin and Norepinephrine Reuptake Inhibitor Start: [...] by m outh in the morning DULoxetine (Cymbalta) [address] capsule Take 120 mg by mouth in the morning. Active take 1 capsule by mo uth [...] 19, 2020 11:00pm June 28, 2020 11:33am fluconazole 150 mg oral tablet (1 source) Azole Antifungal Start: 01-20-2024 End: 01-20-2024 take 1 tablet by mouth once fluconazole (DIFLUCAN) 150 mg tablet Take 1 tablet (150 mg total) by mouth once for 1 dose. 1 tablet 01/20/2024 01/20/2024 Active 1 ml heparin sodium, porcine 5000 unt/ml injection (1 source) Unfractionated Heparin, Anti-coagulant Start: 02-24-2023 inject 7500 [IU] by subcutaneous injection every eight hours 7,500 Units, subcutaneous, Every 8 hours scheduled, First dose on Wed02/24/23 at 0600 hydroCHLOROthiazide 25 mg / lisinopril 20 mg oral tablet (14 sources) Thiazide Diuretic, Angiotensin Converting Enzyme Inhibitor Start: 06-02-2022 End: 12-21-2023 take 1 tablet by mouth in the morning lisinopril-hydr oCHLOROthiazide 20-25 MG tablet Take 1 tablet by mouth in the morning. 06/02/2022 12/21/2023 Discontinued (Med list cleanup) Start: 06-10-2020 take 1 tablet by elvira once daily Lisinopril-Hydrochlorothiazide Active 1 TAB PO Daily June 09, 2020 11:00pm Start: 02-03-2020 End: 05-03-2020 take 1 tablet by mouth once daily Lisinopril-Hydrochlorothiazide Discontin ued 1 TAB PO Daily February 03, 2020 12:00am May 03, 2020 7:57pm hydrOXYzine pamoate 25 mg oral capsule (20 sources) Antihistamine Start: 02-22-2023 take 50 mg by mouth three times daily as needed 50 mg, oral, 3 times daily PRN, itching, Starting on Wed02/22/23 at 1256 Start: 02-03-2020 End: 04-01-2020 take 25 mg by mouth three times daily Hydroxyzine Pamoate Discontinued 25 MG PO Three times daily February 08, 2020 12:00am April 01, 2020 6:16am take 1 capsule by mo uth every eight hours as needed hydrOXYzine pamoate (Vistaril) 50 MG capsule Take 50 mg by mouth every 8 (eight) hours if needed. Active take 1 capsule by mo uth three times daily for anxiety hydrOXYzine (VISTARIL) 50 mg capsule hydroxyzine pamoate 50 mg capsule take 1 capsule by mouth three times a day if needed for anxiety Active take 1 capsule by mo uth every eight hours Vistaril 25 MG 1 capsule as needed Orally every 8 hrs Active lamoTRIgine 100 mg oral tablet (20 sources) Mood Stabilizer, Anti-epileptic Agent Start: 12-22-2022 [...] Lamotrigine Discontinued 200 MG PO Twice daily February 08, 2020 12:00am April 05, 2020 6:20am take 1 tablet by elvira th every twenty-four hours in the morning lamoTRIgine (LaMICtal XR) 100 mg tablet sustained-release 24 hour 24 hr tablet Take 100 mg by mouth in the morning and 100 mg before bedtime. Active levETIRAcetam 500 mg oral tablet (3 sources) Start: 02-22-2023 End: 03-04-2023 take 1 tablet by mouth twice daily levETIRAcetam (Keppra) 500 mg tablet Indications: CSF leak Take 1 tablet (500 mg) by mouth 2 times a day for 7 days. 14 tablet 0 02/25/2023 Active lisinopril 20 mg oral tablet (3 sources) Angiotensin Converting Enzyme Inhibitor take 1 tablet by mouth every twenty-four hours Lisinopril 20 MG 1 tablet Orally Once a day Active lisinopril 20 mg, hydroCHLOROthiazide 25 mg for Zestoretic/Prinizide (1 source) Start: 02-22-2023 take 1 dose by mouth once daily oral, Daily, First dose on Wed02/22/23 at 1430 Give both components for Zestoretic/Priniz taryn product meclizine hydrochloride 25 mg oral tablet (2 sources) Antiemetic Start: 09-24-2023 take 1 tablet by mouth three times daily as needed for dizziness meclizine (ANTIVERT) 25 mg tablet Take 1 tablet (25 mg total) by mouth 3 (three) times a day as needed for dizziness. 30 tablet 09/24/2023 Active Naloxone (1 source) Opioid Antagonist Start: [...] 07-18-2021 Pneumatic Walk ing Boot July, Active pramipexole dihydrochloride 0.125 mg oral tablet (4 sources) Nonergot Dopamine Agonist Start: 11-04-2023 End: 12-21-2023 pramipexole (Mirapex) 0.125 MG tablet Indications: Restless leg syndrome 1-2 tablets at 2 hrs before bed time 60 tablet 2 11/04/2023 12/21/2023 Discontinued (Med list cleanup) predniSONE 20 mg oral tablet (3 sources) Start: 04-23-2023 take 20 mg by mouth twice daily Prednisone Active 20 MG PO Twice daily 12 10April 23, 2023 12:00am Start: 09-12-2022 take 1 tablet by elvira th every twelve hours predniSONE 20 MG 1 tablet Orally bid for 5 days Sep, Not-Taking primidone 50 mg oral tablet (20 sources) Anti-epileptic Agent Start: 12-21-2023 take 2 tablets by mouth once at bedtime primidone (Mysoline) 50 MG tablet Indications: Tremor, essential 2 po q hs 60 tablet 2 12/21/2023 Active Start: 02-22-2023 take 150 mg by mouth once thanh y 150 mg, oral, Nightly, First dose on Wed02/22/23 at 2100 Start: 02-22-2023 End: 12-21-2023 take 0.5-1 tablets by mouth once daily in the morning, then take 2-0.5 tablets by mouth once daily in the evening primidone (Mysoline) 50 MG tablet Indications: Tremor, essential take 1/2 to 1 tablets by mouth every morning and 2 AND 1/2 to 3 tablets every evening 120 tablet 09/13/2023 Active Start: 02-03-2020 End: 05-03-2020 take 1 tablet by mouth at bedtime Primidone (Mysoline) 50 mg Tablet Discontinued 25 MG PO Bedtime February 03, 2020 12:00am May 03, 2020 7:59pm rOPINIRole 1 mg oral tablet (20 sources) Nonergot Dopamine Agonist Start: 11-25-2021 rOPINIRole (Requip) 1 MG tablet Indications: Restless leg 1 tablet in the morning and 3 tablets qhs 120 tablet 2 12/21/2023 Active Start: 06-16-2020 End: 07-22-2020 take 1 mg by mouth twice daily Ropinirole Active 1 MG PO Twice daily July 22, 2020 8:07am Start: 05-03-2020 End: 06-28-2020 take 0.5 mg by mouth twice daily Ropinirole Discontinued 0.5 MG PO Twice daily May 03, 2020 12:00am June 28, 2020 2:09pm End: 12-21-2023 take 1 tablet by mouth once daily in the morning rOPINIRole (Requip) 1 MG tablet Take 1 mg by mouth in the morning and 1 mg before bedtime. 1 tablet in the morning and 3 tablets qhs. 12/21/2023 Discontinued (Reorder) tiZANidine 4 mg oral tablet (2 sources) Central alpha-2 Adrenergic Agonist Start: 07-06-2023 take 1 tablet by mouth once daily tiZANidine (ZANAFLEX) 4 mg tablet Indications: Thoracic myofascial strain, initial encounter Take 1 tablet (4 mg total) by mouth nightly. 30 tablet 07/06/2023 Active traMADol hydrochloride 50 mg oral tablet (1 [...] days. 12 tablet 0 02/25/2023 02/28/2023 Active triamcinolone acetonide 5 mg/ml topical cream (2 sources) Corticosteroid Start: 07-22-2023 triamcinolone (KENALOG) 0.5 % cream Apply 1 Application topically 3 (three) times a day. 60 g 1 07/22/2023 Active 24 hr divalproex sodium 500 mg extended release oral tablet (2 sources) Mood Stabilizer, Anti-epileptic Agent Start: 07-22-2020 take 500 mg by mouth every twelve hours Divalproex Active 500 MG PO Every 12 hours 60 July 21, 2020 11:00pm Completed/Discontinued Medications Medication Drug Class(es) Dates Sig (Normalized) Sig (Original) amLODIPine 5 mg oral tablet (16 sources) Dihydropyridine Calcium Channel Grey Start: 09-24-2023 End: 01-20-2024 take 1 tablet by mouth once daily in the morning amLODIPine (NORVASC) 5 mg tablet Take 1 tablet (5 mg total) by mouth every morning. 90 tablet 1 09/24/2023 01/20/2024 Discontinued (Patient Stopped On Own) Start: 02-03-2020 End: 12-21-2023 take 1 tablet by mouth once daily [...] take 600 mg by mouth at bedtime Lomira Carbonate Discontinued 600 MG PO Bedtime 60 February 08, 2020 12:00am April 01, 2020 6:16am Start: 02-03-2020 End: 02-08-2020 take 300 mg by mouth twice daily Lomira Carbonate Discontinued 300 MG PO Twice daily February 03, 2020 12:00am February 08, 2020 9:43am LORazepam 0.5 mg oral tablet (2 sources) Benzodiazepine Start: 06-10-2020 End: 06-28-2020 take 1 tablet by mouth twice daily Lorazepam (Ativan) 0.5 mg tablet Discontinued 0.5 MG PO Twice daily 6 June 09, 2020 11:00pm June 28, 2020 11:34am lovastatin 40 mg oral tablet (15 sources) HMG-CoA Reductase Inhibitor Start: 07-31-2022 End: 12-21-2023 take 1 tablet by mouth in the [...] (Therapy completed) take 1 tablet by elvira once daily at mealtime metFORMIN, OSM, (Fortamet) 500 mg 24 hr tablet Take 1 tablet (500 mg) by mouth once daily in the evening. Take with meals. Do not crush, chew, or split. 0 Active 1 ml methylPREDNISolone acetate 40 mg/ml injection (13 sources) Corticosteroid Start: 03-16-2024 End: 03-16-2024 methylPREDNISolone acetate (DEPO-Medrol) injection 40 mg Start: 03-16-2024 End: 03-16-2024 40 mg, Intra-articular, Once PRN Procedure, Starting on Wed03/16/24 at 0934, For 1 dose Start: 12-21-2023 End: 12-21-2023 methylPREDNISolone acetate ( DEPO-Medrol) injection 40 mg Start: 12-21-2023 End: 12-21-2023 40 mg, Intra-articular, Once PRN Procedure, Starting on Wed12/21/23 at 1559, For 1 dose Start: 10-08-2022 methylPREDNISo lone 4 MG as directed Orally for daily dose take half with breakfast, half with dinner for 6 days Oct, Active 24 hr paliperidone 3 mg extended [...] mL traZODone hydrochloride 100 mg oral tablet (20 sources) Serotonin Reuptake Inhibitor Start: 02-22-2023 take 100 mg by mouth once daily 100 mg, oral, Nightly, First dose on 02/22/23 at 2100 Start: 05-20-2020 End: 12-21-2023 take 1 tablet by mouth at bedtime traZODone (DESYREL) 100 mg tablet take 1 tablet by mouth at bedtime if needed 0 03/17/2023 05/18/2023 Discontinued (Therapy completed) Start: 02-03-2020 End: 05-20-2020 take 75 mg by mouth at bedtime Trazodone Discontinued 75 MG PO Bedtime May 03, 2020 3:40pm May 20, 2020 9:51am End: 05-18-2023 traZODone (DESYREL) 150 mg t ablet Take 75 mg by mouth nightly. 0 05/18/2023 Discontinued (Therapy completed) Problems Active Problems Problem Classification Problem Date Documented Date Episodic/Chronic Allergic reactions (1 source) Atopic dermatitis; Translations: [Other atopic dermatitis] 01-20-2024 Chronic Anxiety disorders (6 sources) Anxiety; Translations: [Anxiety disorder, unspecified] Onset: 02-22-2023 02-22-2023 Chronic Deficiency and other anemia (2 sources) Anemia; Translations: [Anemia, unspecified] 12-21-2023 Episodic Diabetes mellitus without complication (10 sources) Type 2 diabetes mellitus without complications; Translations: [Type 2 diabetes mellitus] Onset: 11-24-2021 Chronic Disorders of lipid metabolism (7 sources) Hyperlipidemia, unspecified; Translations: [Hyperlipidemia] Onset: 11-25-2021 02-22-2023 Chronic Esophageal disorders (3 sources) Gastroesophageal reflux disease; Translations: [Gastro-esophageal reflux disease without esophagitis] Onset: 12-03-2021 12-03-2021 Chronic Essential hypertension (19 sources) Hypertensive disorder; Translations: [Essential (primary) hypertension] Onset: 12-03-2021 05-06-2020 Chronic Gout and other crystal arthropathies (6 sources) Gout, unspecified; Translations: [Gout] Onset: 12-03-2021 Chronic Inflammatory diseases of female pelvic organs (1 source) Vaginitis Onset: 01-20-2024 Episodic Malaise and fatigue (4 sources) Chronic fatigue, unspecified; Translations: [CHRONIC FATIGUE UNSPECIFIED] Onset: 12-12-2021 Chronic Miscellaneous mental health disorders (14 sources) Primary insomnia; Translations: [Primary insomnia] Onset: 10-02-2023 10-02-2023 Chronic Mood disorders (20 sources) Severe depressed bipolar I disorder without psychotic features; Translations: [Bipolar disorder, current episode depressed, severe, without psychotic features] Onset: 12-03-2021 06-28-2020 Chronic Osteoarthritis (20 sources) Arthritis of left knee; Translations: [Unilateral primary osteoarthritis, left knee] Onset: 07-20-2022 Resolved: 07-20-2022 07-20-2022 Chronic Other connective tissue disease (1 source) Pain in left foot Episodic Other ear and sense organ disorders (13 sources) Hearing loss of right ear; Translations: [Other specified hearing loss, right ear] Onset: 07-20-2022 07-31-2022 Chronic Other hereditary and degenerative nervous system conditions (14 sources) Restless legs; Translations: [Restless legs syndrome] Onset: 10-02-2023 10-02-2023 Chronic Other hereditary and degenerative nervous system conditions (14 sources) Essential tremor; Translations: [Essential tremor] Onset: 10-02-2023 10-02-2023 Chronic Other hereditary and degenerative nervous system conditions (10 sources) Tremor; Translations: [Other specified forms of tremor] Onset: 10-02-2023 10-02-2023 Chronic Other lower respiratory disease (1 source) Unspecified acute lower respiratory infection Episodic Other nervous system disorders (5 sources) Cerebrospinal fluid leak; Translations: [CSF leak] Onset: 01-19-2023 01-18-2023 Episodic Other nervous system disorders (1 source) Postoperative pain ; Translations: [Other acute postprocedural pain] 02-25-2023 Episodic Other non-traumatic joint disorders (4 sources) Pain in left knee; Translations: [Pain in joint, lower leg] 12-21-2023 Episodic Other non-traumatic joint disorders (2 sources) Pain in right knee; Translations: [Pain in joint, lower leg] 03-16-2024 Episodic Other nutritional; endocrine; and metabolic disorders (13 sources) Obesity; Translations: [Obesity, unspecified] Onset: 02-22-2023 02-22-2023 Chronic Other nutritional; endocrine; and metabolic disorders (3 sources) Morbid obesity; Translations: [Morbid (severe) obesity due to excess calories] Onset: 08-15-2018 12-03-2021 Chronic Other nutritional; endocrine; and metabolic disorders (10 sources) Body mass index 30+ - obesity; Translations: [Obesity, unspecified] Onset: 10-04-2023 10-04-2023 Chronic Other nutritional; endocrine; and metabolic disorders (1 source) Morbid (severe) obesity due to excess calories; Translations: [Morbid (severe) obesity due to excess calories] Onset: 12-03-2021 Chronic Other skin disorders (1 source) Skin irritation ; Translations: [Other skin changes] 01-20-2024 Episodic Residual codes; unclassified (15 sources) Obstructive sleep apnea syndrome; Translations: [Obstructive sleep apnea (adult) (pediatric)] Onset: 02-22-2023 02-22-2023 Chronic Residual codes; unclassified (3 sources) Sleep apnea; Translations: [Sleep apnea, unspecified] Onset: 2020 12-03-2021 Chronic Residual codes; unclassified (12 sources) Hypersomnia; Translations: [Hypersomnia, unspecified] Onset: 10-02-2023 10-02-2023 Chronic Residual codes; unclassified (1 source) Obstructive sleep apnea (adult) (pediatric); Translations: [Obstructive sleep apnea (adult) (pediatric)] Onset: 12-03-2021 Chronic Residual codes; unclassified (1 source) Family history of malignant neoplasm of trachea, bronchus and lung; Translations: [FAM HX MALIG NEOPLSM TRACH BRON LNG] Onset: 12-16-2021 Episodic Unclassified (2 sources) Post-op Visit; Translations: [Post-op Visit] Onset: 03-16-2023 Unclassified (2 sources) Ear Drainage; Translations: [Ear Drainage] Onset: 12-24-2022 Unclassified (1 source) Cerebrospinal fluid leak, unspecified; Translations: [Cerebrospinal fluid leak, unspecified] Onset: 01-20-2023 Unclassified (2 sources) Acute candidiasis of vulva and vagina; Translations: [Acute candidiasis of vulva and vagina] Onset: 01-20-2024 Unclassified (1 source) Rash Onset: 05-18-2023 Unclassified (1 source) Pre-op Exam Onset: 03-24-2023 Past or Other Problems Problem Classification Problem Date Documented Date Episodic/Chronic Allergic reactions (2 sources) Eczema; Translations: [Other specified dermatitis] Onset: 05-18-2023 05-18-2023 Episodic Conditions associated with dizziness or vertigo (2 sources) Dizziness and giddiness; Translations: [Dizziness] Onset: 09-24-2023 Episodic Fracture of lower limb (4 sources) Other fracture of right lower leg, initial encounter for closed fracture; Translations: [Fracture of calcaneus] Onset: 07-18-2021 Resolved: 07-18-2021 Episodic Headache; including migraine (4 sources) Headache; Translations: [Headache] Onset: 07-06-2023 Resolved: 07-06-2023 02-04-2020 Episodic Joint disorders and dislocations; trauma-related (13 sources) Derangement of knee; Translations: [Unspecified internal derangement of unspecified knee] Onset: 08-28-2020 Resolved: 07-20-2022 12-03-2021 Chronic Malaise and fatigue (3 sources) Fatigue; Translations: [Other fatigue] Onset: 12-03-2021 12-03-2021 Episodic Mood disorders (3 sources) Mood disorders Onset: 05-18-2023 Resolved: 09-24-2023 05-18-2023 Mycoses (2 sources) Candidiasis of vagina; Translations: [Vaginal yeast infection] Onset: 07-06-2023 01-20-2024 Episodic Other connective tissue disease (3 sources) Calcaneal spur; Translations: [Calcaneal spur, unspecified foot] Onset: 04-24-2022 04-24-2022 Episodic Other connective tissue disease (3 sources) Synovial cyst of knee; Translations: [Synovial cyst of popliteal space [Parekh], unspecified knee] Onset: 11-26-2016 04-24-2022 Episodic Other ear and sense organ disorders (14 sources) Cerebrospinal fluid otorrhea; Translations: [CSF leak from ear] Onset: 11-04-2022 03-16-2023 Episodic Other nervous system disorders (13 sources) Tremor; Translations: [Tremor, unspecified] Onset: 12-03-2021 12-03-2021 Episodic Other nervous system disorders (3 sources) Trigeminal neuralgia; Translations: [Trigeminal neuralgia] Onset: 09-21-2017 12-03-2021 Episodic Other nervous system disorders (2 sources) Other acute postprocedural pain; Translations: [Other acute postprocedural pain] Onset: 02-22-2023 Episodic Other non-traumatic joint disorders (1 source) Pain in right ankle and joints of right foot Onset: 07-18-2021 Resolved: 07-18-2021 Episodic Other non-traumatic joint disorders (3 sources) Shoulder pain; Translations: [Pain in unspecified shoulder] Onset: 04-24-2022 04-24-2022 Episodic Other screening for suspected conditions (not mental disorders or infectious disease) (7 sources) Encounter for screening mammogram for malignant neoplasm of breast; Translations: [Cerebrospinal fluid examination abnormal] Onset: 12-12-2021 Resolved: 07-06-2023 Episodic Otitis media and related conditions (13 sources) Dysfunction of right eustachian tube; Translations: [Unspecified Eustachian tube disorder, right ear] Onset: 07-20-2022 07-31-2022 Episodic Residual codes; unclassified (4 sources) History of sleeve gastrectomy; Translations: [Acquired absence of stomach [part of]] Onset: 04-19-2023 04-23-2023 Episodic Residual codes; unclassified (12 sources) Amnesia; Translations: [Other amnesia] Onset: 10-02-2023 10-02-2023 Episodic Spondylosis; intervertebral disc disorders; other back problems (1 source) Backache Onset: 07-06-2023 Episodic Sprains and strains (1 source) Strain of muscle and tendon of unspecified wall of thorax, initial encounter; Translations: [Strain of muscle and tendon of unspecified wall of thorax, initial encounter] Onset: 07-06-2023 Episodic Suicide and intentional self-inflicted injury (11 sources) Suicidal thoughts; Translations: [Suicidal ideations] Onset: 01-11-2020 07-17-2020 Episodic Unclassified (6 sources) Onset: 01-07-2023 Resolved: 05-18-2023 01-07-2023 Unclassified (1 source) Cerebrospinal fluid leak, unspecified; Translations: [Cerebrospinal fluid leak, unspecified] Onset: 02-22-2023 Results Test Name Value Interpretation Reference Range Facility No Panel Informationon 03-16 Meño Gomez NP 03/16/2024 9:36 AM L Inj/Asp: L knee on 03/16/2024 9:34 AM Indications: pain Details: 21 G needle, anterolateral approach Medications: 40 mg methylPREDNISolone acetate 40 MG/ML Outcome: tolerated well, no immediate complications Site was cleaned with isopropyl alcohol Procedure, treatment alternatives, risks and benefits explained, specific risks discussed. Consent was given by the patient. [facility] NP 03/16/2024 9:36 AM L Inj/Asp: R knee on 03/16/2024 9:34 AM Indications: pain Details: 21 G needle, anterolateral approach Medications: 40 mg methylPREDNISolone acetate 40 MG/ML Outcome: tolerated well, no immediate complications Site cleaned with isopropyl alcohol Procedure, treatment alternatives, risks and benefits explained, specific risks discussed. Consent was given by the patient. [facility] VAGINITIS PANEL PCRon 2023 VAGINITIS PANEL PCR BACT. VAGINOSIS DNA Not detected (qualifier value) Qualitative results are reported based on detection and quantitation of targeted organism markers which include: Lactobacillus spp. (L. crispatus and L. jensenii), Gardnerella vaginalis, Atopobium vaginae, Bacterial Vaginosis Associated Bacteria-2 (BVAB-2) and Megasphaera-1 REGULO SPECIES DNA Not detected (qualifier value) Regulo species not detected include: C. albicans, C. tropicalis, C. parapsilosis or C. dubliniensis REGULO KRUSEI DNA Not detected (qualifier value) No Regulo krusei detected REGULO GLABRATA DNA Not detected (qualifier value) No Regulo glabrata detected TRICHOMONAS VAG DNA Not detected (qualifier value) No Trichomonas vaginalis detected NOTE BD MAX Vaginal Panel has not been evaluated for patients under 18 years old. Results for these patients should be reviewed and assessed in accordance with clinical presentation to determine patient diagnosis. Normal [facility] Comment on above: Performed By: #### V PPCR #### [facility] ([id number]) [address] [place] [address], [address] [place] [address] [facility] FERRITINon 12-21-2023 Ferritin [Mass/Vol] 178 ng/mL 8.0 - 25 2.0 ng/mL [facility] No Panel Informationon 12-20 Meño Gomez NP 12/21/2023 3:59 PM L Inj/Asp: L knee on 12/21/2023 3:59 PM Indications: pain Details: 21 G needle, anterolateral approach Medications: 40 mg methylPREDNISolone acetate 40 MG/ML Outcome: tolerated well, no immediate complications Site was cleaned with isopropyl alcohol Procedure, treatment alternatives, risks and benefits explained, specific risks discussed. Consent was given by the patient. [facility] [place] [facility] Magnesiumon 02-25-2023 Magnesium [Mass/Vol] 1.55 mg/dL Low 1.60 - 2.40 mg/dL [facility] Magnesium [Mass/Vol] 1.55 mg/dL Low 1.60-2.40 [facility] Comment on above: Performed By: #### 3 4529-8 #### REGGIE Baugh ([id number]) [facility] ([facility] [address] [place] [address] No Panel Informationon 02-25 Interpretation and review of laboratory results Abnormal [facility] Renal function 2000 panelon 02-25-2023 Albumin BCP dye [Mass/Vol] 3.8 g/dL 3.4 - 5.0 g/dL [facility] Anion gap [Moles/Vol] 13 mmol/L 10 - 20 mmol/L [facility] Calcium [Mass/Vol] 9.2 mg/dL 8.6 - 10. 6 mg/dL [facility] Chloride [Moles/Vol] 100 mmol/L 98 - 107 mmol/L [facility] CO2 [Moles/Vol] 29 mmol/L 21 - 32 mmol/L [facility] Creatinine [Mass/Vol] 0.61 mg/dL 0.50 - 1.05 mg/dL [facility] GFR/1.73 sq M.predicted MDRD (S/P/Bld) [Vol rate/Area] - PINF [facility] Comment on above: Calculations of kortney mated GFR are performed using the 2020 CKD-EPI Study Refit equation without the race variable for the IDMS-Traceable creatinine methods. https://jasn.asnjournals.org/content//ASN.34416144 88 Glucose [Mass/Vol] 121 mg/dL High 74 - 99 mg/dL [facility] Phosphate [Mass/Vol] 2.9 mg/dL 2.5 - 4.9 mg/dL [facility] Comment on above: The performance hina acteristics of phosphorus testing in heparinized plasma have been validated by the individual laboratory site where testing is performed. Testing on heparinized plasma is not approved by the FDA; however, such approval is not necessary. Potassium [Moles/Vol] 4.4 mmol/L 3.5 - 5.3 mmol/L [facility] Sodium [Moles/Vol] 138 mmol/L 136 - 145 mmol/L [facility] Urea nitrogen [Mass/Vol] 11 mg/dL 6 - 23 mg/dL [facility] Albumin BCP dye [Mass/Vol] 3.8 g/dL Normal 3.4-5.0 [facility] Comment on above: Performed By: #### 3 4529-8 #### REGGIE Baugh ([id number]) [facility] ([facility]) [id number] [place] [address] 26588 Anion gap [Moles/Vol] 13 mmol/L Normal 10-20 [facility] Comment on above: Performed By: #### 3 4529-8 #### REGGIE Baugh ([id number]) [facility] ([facility] [id number] [place] [address] 42826 Calcium [Mass/Vol] 9.2 mg/dL Normal 8.6-10.6 [facility] Comment on above: Performed By: #### 3 4529-8 #### REGGIE Baugh ([id number]) [facility] ([facility]) [id number] [place] [address] 52062 Chloride [Moles/Vol] 100 mmol/L Normal 98-107 [facility] Comment on above: Performed By: #### 3 4529-8 #### REGGIE QUEZADA L ([id number]) [facility] ([facility]) [address] [place] [address] CO2 [Moles/Vol] 29 mmol/L Normal 21-32 [facility] Comment on above: Performed By: #### 3 4529-8 #### REGGIE QUEZADA L ([id number]) [facility] ([facility]) [address] [place] [address] Creatinine [Mass/Vol] 0.61 mg/dL Normal 0.50-1.05 [facility] Comment on above: Performed By: #### 3 4529-8 #### REGGIE aBugh ([id number]) [facility] ([facility]) [address] [place] [address] 06099 GFR/1.73 sq M.predicted MDRD (S/P/Bld) [Vol rate/Area] mL/min/{1.73_m2} Normal >60 [facility] Comment on above: Result Comment: Calc ulations of estimated GFR are performed using the 2020 CKD-EPI Study Refit equation without the race variable for the IDMS-Traceable creatinine methods. https://jasn.asnjournals.org/content//ASN.99552198 88 Performed By: #### 3 4529-8 #### REGGIE Baugh ([id number]) [facility] ([facility]) [address] [place] [address] 60311 Glucose [Mass/Vol] 121 mg/dL High 74-99 [facility] Comment on above: Performed By: #### 3 4529-8 #### REGGIE Baugh ([id number]) [facility] ([facility]) [address] [place] [address] 32285 Phosphate [Mass/Vol] 2.9 mg/dL Normal 2.5-4.9 [facility] Comment on above: Result Comment: The performance characteristics of phosphorus testing in heparinized plasma have been validated by the individual laboratory site where testing is performed. Testing on heparinized plasma is not approved by the FDA; however, such approval is not necessary. Performed By: #### 3 4529-8 #### REGGIE Baugh ([id number]) [facility] ([facility]) [address] [place] [address] 94559 Potassium [Moles/Vol] 4.4 mmol/L Normal 3.5-5.3 [facility] Comment on above: Performed By: #### 3 4529-8 #### REGGIE Baugh ([id number]) [facility] ([facility]) [address] [place] [address] [place] [address] Sodium [Moles/Vol] 138 mmol/L Normal 136-145 [facility] Comment on above: Performed By: #### 3 4529-8 #### REGGIE Baugh ([id number]) [facility] ([facility]) [address] [place] [address] 84793 Urea nitrogen [Mass/Vol] 11 mg/dL Normal 6-23 [facility] Comment on above: Performed By: #### 3 4529-8 #### REGGIE Baugh ([id number]) [facility] ([facility]) [address] [place] [address] 04442 Glucose Test strip manual (B ld) [Mass/Vol]on 02-24-2023 Glucose [Mass/Vol] 121 mg/dL High 74 - 99 mg/dL [facility] Interpretation and review of laboratory results Abnormal [facility] Glucose [Mass/Vol] 121 mg/dL High 74-99 [facility] Comment on above: Performed By: #### 3 4529-8 #### REGGIE Baugh ([id number]) [facility] ([facility]) [address] [place] [address] 06629 Glucose [Mass/Vol] 107 mg/dL High 74 - 99 mg/dL [facility] Interpretation and review of laboratory results Abnormal [facility] Glucose [Mass/Vol] 107 mg/dL High 74-99 [facility] Comment on above: Performed By: #### 3 4529-8 #### REGGIE Baugh ([id number]) [facility] ([facility]) [address] [place] [address] 07408 Glucose [Mass/Vol] 100 mg/dL High 74 - 99 mg/dL [facility] Interpretation and review of laboratory results Abnormal [facility] Glucose [Mass/Vol] 100 mg/dL High 74-99 [facility] Comment on above: Performed By: #### 3 4529-8 #### REGGIE Baugh ([id number]) [facility] ([facility]) [address] [place] [address] CBC W Auto Differential pane l (Bld)on 02-23-2023 Basophils (Bld) [#/Vol] 0.02 10*3/uL [facility] Basophils/100 WBC (Bld) 0.2 % 0.0 - 2.0 % [facility] Eosinophils (Bld) [#/Vol] 0.03 10*3/uL [facility] Eosinophils/100 WBC (Bld) 0.3 % 0.0 - 6.0 % [facility] Erythrocyte distribution width (RBC) [Ratio] 13.2 % 11.5 - 14.5 % [facility] Hematocrit (Bld) [Volume fraction] 37.0 % 36.0 - 46.0 % [facility] Hemoglobin (Bld) [Mass/Vol] 12.0 g/dL 12.0 - 16.0 g/dL [facility] Immature granulocytes (Bld) [#/Vol] 0.02 10*3/uL [facility] Immature granulocytes/100 WBC (Bld) 0.2 % 0.0 - 0.9 % [facility] Comment on above: Immature Granulocyte Count (IG) includes promyelocytes, myelocytes and metamyelocytes but does not include bands. Percent differential counts (%) should be interpreted in the context of the absolute cell counts (cells/UL). Interpretation and review of laboratory results Abnormal [facility] Lymphocytes (Bld) [#/Vol] 1.95 10*3/uL [facility] Lymphocytes/100 WBC (Bld) 18.2 % 13.0 - 44.0 % [facility] MCH (RBC) [Entitic mass] 28.7 pg 26.0 - 34.0 pg [facility] MCHC (RBC) [Mass/Vol] 32.4 g/dL 32.0 - 36.0 g/dL [facility] MCV (RBC) [Entitic vol] 89 fL 80 - 100 fL [facility] Monocytes (Bld) [#/Vol] 0.66 10*3/uL [facility] Monocytes/100 WBC (Bld) 6.2 % 2.0 - 10.0 % [facility] Neutrophils (Bld) [#/Vol] 8.01 10*3/uL High [facility] Comment on above: Percent differential counts (%) should be interpreted in the context of the absolute cell counts (cells/uL). Neutrophils/100 WBC (Bld) 74.9 % 40.0 - 80.0 % [facility] Nucleated RBC/100 WBC (Bld) [Ratio] 0.0 % [facility] Platelets (Bld) [#/Vol] 250 10*3/uL [facility] RBC (Bld) [#/Vol] 4.18 10*6/uL [facility] WBC (Bld) [#/Vol] 10.7 10*3/uL [facility] Basophils (Bld) [#/Vol] 0.02 x10*3/uL Normal 0.00-0.10 [facility] Comment on above: Performed By: #### 3 4529-8 #### REGGIE Baugh ([id number]) [facility] ([facility]) [id number] [place] [address] 60689 Basophils/100 WBC (Bld) 0.2 % Normal 0.0-2.0 [facility] Comment on above: Performed By: #### 3 4529-8 #### REGGIE Baugh ([id number]) [facility] ([facility]) [id number] [place] [address] 63334 Eosinophils (Bld) [#/Vol] 0.03 x10*3/uL Normal 0.00-0.70 [facility] Comment on above: Performed By: #### 3 4529-8 #### REGGIE Baugh ([id number]) [facility] ([facility]) [address] [place] [address] Eosinophils/100 WBC (Bld) 0.3 % Normal 0.0-6.0 [facility] Comment on above: Performed By: #### 3 4529-8 #### REGGIE Baugh ([id number]) [facility] ([facility]) [id number] [place] [address] 96924 Erythrocyte distribution width (RBC) [Ratio] 13.2 % Normal 11.5-14.5 [facility] Comment on above: Performed By: #### 3 4529-8 #### REGGIE Baugh ([id number]) [facility] ([facility]) [address] [place] [address] 61565 Hematocrit (Bld) [Volume fraction] 37.0 % Normal 36.0-46.0 [facility] Comment on above: Performed By: #### 3 4529-8 #### REGGIE Baugh ([id number]) [facility] ([facility]) [address] [place] [address] 69926 Hemoglobin (Bld) [Mass/Vol] 12.0 g/dL Normal 12.0-16.0 [facility] Comment on above: Performed By: #### 3 4529-8 #### REGGIE Baugh ([id number]) [facility] ([facility]) [address] [place] [address] 00706 Immature granulocytes (Bld) [#/Vol] 0.02 x10*3/uL Normal 0.00-0.70 [facility] Comment on above: Performed By: #### 3 4529-8 #### REGGIE Baugh ([id number]) [facility] ([facility]) [address] [place] [address] 46150 Immature granulocytes/100 WBC (Bld) 0.2 % Normal 0.0-0.9 [facility] Comment on above: Result Comment: German[place] ture Granulocyte Count (IG) includes promyelocytes, myelocytes and metamyelocytes but does not include bands. Percent differential counts (%) should be interpreted in the context of the absolute cell counts (cells/UL). Performed By: #### 3 4529-8 #### REGGIE Baugh ([id number]) [facility] ([facility]) [address] [place] [address] 92279 Lymphocytes (Bld) [#/Vol] 1.95 x10*3/uL Normal 1.20-4.80 [facility] Comment on above: Performed By: #### 3 4529-8 #### REGGIE Baugh ([id number]) [facility] ([facility]) [id number] [place] [address] 90452 Lymphocytes/100 WBC (Bld) 18.2 % Normal 13.0-44.0 [facility] Comment on above: Performed By: #### 3 4529-8 #### REGGIE Baugh ([id number]) [facility] ([facility]) [id number] [place] [address] 86827 MCH (RBC) [Entitic mass] 28.7 pg Normal 26.0-34.0 [facility] Comment on above: Performed By: #### 3 4529-8 #### REGGIE Baugh ([id number]) [facility] ([facility]) [address] [place] [address] 61301 MCHC (RBC) [Mass/Vol] 32.4 g/dL Normal 32.0-36.0 [facility] Comment on above: Performed By: #### 3 4529-8 #### REGGIE Baugh ([id number]) [facility] ([facility]) [address] [place] [address] 39772 MCV (RBC) [Entitic vol] 89 fL Normal 80-100 [facility] Comment on above: Performed By: #### 3 4529-8 #### REGGIE Baugh ([id number]) [facility] ([facility]) [address] [place] [address] 55790 Monocytes (Bld) [#/Vol] 0.66 x10*3/uL Normal 0.10-1.00 [facility] Comment on above: Performed By: #### 3 4529-8 #### REGGIE Baugh ([id number]) [facility] ([facility]) [address] [place] [address] 42645 Monocytes/100 WBC (Bld) 6.2 % Normal 2.0-10.0 [facility] Comment on above: Performed By: #### 3 4529-8 #### REGGIE Baugh ([id number]) [facility] ([facility]) [address] [place] [address] 62047 Neutrophils (Bld) [#/Vol] 8.01 x10*3/uL High 1.20-7.70 [facility] Comment on above: Result Comment: Perc ent differential counts (%) should be interpreted in the context of the absolute cell counts (cells/uL). Performed By: #### 3 4529-8 #### REGGIE Baugh ([id number]) [facility] ([facility] [address] [place] [address] Neutrophils/100 WBC (Bld) 74.9 % Normal 40.0-80.0 [facility] Comment on above: Performed By: #### 3 4529-8 #### REGGIE Baugh ([id number]) [facility] ([facility]) [id number] [place] [address] 13023 Nucleated RBC/100 WBC (Bld) [Ratio] 0.0 /100 WBCs Normal 0.0-0.0 [facility] Comment on above: Performed By: #### 3 4529-8 #### REGGIE QUEZADA L ([id number]) [facility] ([facility] [address] [place] [address] Platelets (Bld) [#/Vol] 250 x10*3/uL Normal 150-450 [facility] Comment on above: Performed By: #### 3 4529-8 #### REGGIE Baugh ([id number]) [facility] ([facility]) [address] [place] [address] RBC (Bld) [#/Vol] 4.18 x10*6/uL Normal 4.00-5.20 [facility] Comment on above: Performed By: #### 3 4529-8 #### REGGIE QUEZADA L ([id number]) [facility] ([facility] [address] [place] [address] WBC (Bld) [#/Vol] 10.7 x10*3/uL Normal 4.4-11.3 [facility] Comment on above: Performed By: #### 3 4529-8 #### REGGIE Baugh ([id number]) [facility] ([facility] [address] [place] [address] Magnesiumon 02-23-2023 Magnesium [Mass/Vol] 1.52 mg/dL Low 1.60 - 2.40 mg/dL [facility] Magnesium [Mass/Vol] 1.52 mg/dL Low 1.60-2.40 [facility] Comment on above: Performed By: #### 3 4529-8 #### REGGIE Baugh ([id number]) [facility] ([facility] [address] [place] [address] No Panel Informationon 02-23 Interpretation and review of laboratory results Abnormal [facility] Renal function 2000 panelon 02-23-2023 Albumin BCP dye [Mass/Vol] 3.5 g/dL 3.4 - 5.0 g/dL [facility] Anion gap [Moles/Vol] 10 mmol/L 10 - 20 mmol/L [facility] Calcium [Mass/Vol] 8.8 mg/dL 8.6 - 10. 6 mg/dL [facility] Chloride [Moles/Vol] 100 mmol/L 98 - 107 mmol/L [facility] CO2 [Moles/Vol] 31 mmol/L 21 - 32 mmol/L [facility] Creatinine [Mass/Vol] 0.47 mg/dL Low 0.50 - 1.05 mg/dL [facility] GFR/1.73 sq M.predicted MDRD (S/P/Bld) [Vol rate/Area] - PINF [facility] Comment on above: Calculations of kortney mated GFR are performed using the 2020 CKD-EPI Study Refit equation without the race variable for the IDMS-Traceable creatinine methods. https://jasn.asnjournals.org/content//ASN.15009544 88 Glucose [Mass/Vol] 114 mg/dL High 74 - 99 mg/dL [facility] Phosphate [Mass/Vol] 3.5 mg/dL 2.5 - 4.9 mg/dL [facility] Comment on above: The performance hina acteristics of phosphorus testing in heparinized plasma have been validated by the individual laboratory site where testing is performed. Testing on heparinized plasma is not approved by the FDA; however, such approval is not necessary. Potassium [Moles/Vol] 4.1 mmol/L 3.5 - 5.3 mmol/L [facility] Sodium [Moles/Vol] 137 mmol/L 136 - 145 mmol/L [facility] Urea nitrogen [Mass/Vol] 13 mg/dL 6 - 23 mg/dL [facility] Albumin BCP dye [Mass/Vol] 3.5 g/dL Normal 3.4-5.0 [facility] Comment on above: Performed By: #### 3 4529-8 #### REGGIE Baugh ([id number]) [facility] ([facility] [address] [place] [address] 31918 Anion gap [Moles/Vol] 10 mmol/L Normal 10-20 [facility] Comment on above: Performed By: #### 3 4529-8 #### REGGIE QUEZADA L ([id number]) [facility] ([facility] [id number] [place] [address] 22637 Calcium [Mass/Vol] 8.8 mg/dL Normal 8.6-10.6 [facility] Comment on above: Performed By: #### 3 4529-8 #### REGGIE QUEAZDA L ([id number]) [facility] ([facility]) [id number] [place] [address] 69742 Chloride [Moles/Vol] 100 mmol/L Normal 98-107 [facility] Comment on above: Performed By: #### 3 4529-8 #### REGGIE QUEZADA L ([id number]) [facility] ([facility] [address] [place] [address] 73782 CO2 [Moles/Vol] 31 mmol/L Normal 21-32 [facility] Comment on above: Performed By: #### 3 4529-8 #### REGGIE QUEZADA L ([id number]) [facility] ([facility] [id number] [place] [address] 35318 Creatinine [Mass/Vol] 0.47 mg/dL Low 0.50-1.05 [facility] Comment on above: Performed By: #### 3 4529-8 #### REGGIE Baugh ([id number]) [facility] ([facility] [address] [place] [address] 62065 GFR/1.73 sq M.predicted MDRD (S/P/Bld) [Vol rate/Area] mL/min/{1.73_m2} Normal >60 [facility] Comment on above: Result Comment: Calc ulations of estimated GFR are performed using the 2020 CKD-EPI Study Refit equation without the race variable for the IDMS-Traceable creatinine methods. https://jasn.asnjournals.org/content//ASN.38768732 88 Performed By: #### 3 4529-8 #### REGGIE Baugh ([id number]) [facility] ([facility] [address] [place] [address] 58059 Glucose [Mass/Vol] 114 mg/dL High 74-99 [facility] Comment on above: Performed By: #### 3 4529-8 #### REGGIE Baugh ([id number]) [facility] ([facility] [address] [place] [address] 26644 Phosphate [Mass/Vol] 3.5 mg/dL Normal 2.5-4.9 [facility] Comment on above: Result Comment: The performance characteristics of phosphorus testing in heparinized plasma have been validated by the individual laboratory site where testing is performed. Testing on heparinized plasma is not approved by the FDA; however, such approval is not necessary. Performed By: #### 3 4529-8 #### REGGIE Baugh ([id number]) [facility] ([facility] [address] [place] [address] Potassium [Moles/Vol] 4.1 mmol/L Normal 3.5-5.3 [facility] Comment on above: Performed By: #### 3 4529-8 #### REGGIE Baugh ([id number]) [facility] ([facility] [address] [place] [address] 97301 Sodium [Moles/Vol] 137 mmol/L Normal 136-145 [facility] Comment on above: Performed By: #### 3 4529-8 #### REGGIE Baugh ([id number]) [facility] ([facility] [address] [place] [address] Urea nitrogen [Mass/Vol] 13 mg/dL Normal 6-23 [facility] Comment on above: Performed By: #### 3 4529-8 #### REGGIE Baugh ([id number]) [facility] ([facility] [address] [place] [address] CT HEAD WO IV CONTRASTon CT HEAD WO IV CONTRAST Interpreted By: Meenakshi Coker, STUDY: CT HEAD WO IV CONTRAST; 02/22/2023 12:48 pm INDICATION: Signs/Symptoms:s/p crani for tegmen defect repair. 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 Signed by: Meenakshi Coker 02/22/2023 1:04 PM Dictation workstation: [id number] Interpreted By: Meenakshi Coker, STUDY: CT HEAD WO IV CONTRAST; 02/22/2023 12:48 pm INDICATION: Signs/Symptoms:s/p crani for tegmen defect repair. COMPARISON: CT head from 10/16/2022 ACCESSION NUMBER(S): [id number] ORDERING CLINICIAN: KATHERINE POLANCO TECHNIQUE: Noncontrast axial [...] COMPARISON: CT head from 10/16/2022 ACCESSION NUMBER(S): [id number] ORDERING CLINICIAN: KATHERINE POLANCO TECHNIQUE: Noncontrast axial [...] Meenakshi Coker 02/22/2023 1:04 PM Dictation workstation: [id number] [facility] Work Phone: Radiology Study observation (narrative) [facility] Work Phone: CT Head WO contrastOrdered B y: Meenakshi Coker on 02-22-2023 [facility] Work Phone: Glucose Test strip manual (B ld) [Mass/Vol]on 02-22-2023 Glucose [Mass/Vol] 107 mg/dL High 74 - 99 mg/dL [facility] Interpretation and review of laboratory results Abnormal [facility] Glucose [Mass/Vol] 107 mg/dL High 74-99 [facility] Comment on above: Performed By: #### 2 341-6 #### REGGIE Baugh ([id number]) [facility] ([facility] [address] [place] [address] Bacteria identifiedon 2022 Bacteria identified Cx Nom (U) Test: Urine Culture Specimen Source: Clean Catch/Voided Specimen Type: Urine Specimen Date: 02/17/2023 1:34 PM Result Date: 02/18/2023 11:30 AM Result Status: Final result Abnormal: No Resulting Lab: [facility] [address] [place], [place] [id number] CULTURE No significant growth Normal [facility] Comment on above: Performed By: #### 6 30-4 #### REGGIE Baugh ([id number]) [facility] ([facility] [address] [place], [place] [address] Basic metabolic 2000 panelon 02-17-2023 Anion gap [Moles/Vol] 16 mmol/L Normal -20 [facility] Comment on above: Performed By: #### 2 4321-2 #### REGGIE Baugh ([id number]) [facility] ([facility] [address] [place] [address] Calcium [Mass/Vol] 9.7 mg/dL Normal 8.6-10.6 [facility] Comment on above: Performed By: #### 2 4321-2 #### REGGIE QUEZADA L ([id number]) [facility] ([facility] [address] [place] [address] Chloride [Moles/Vol] 100 mmol/L Normal 98-107 [facility] Comment on above: Performed By: #### 2 4321-2 #### REGGIE Baugh ([id number]) [facility] ([facility] [address] [place] [address]60 CO2 [Moles/Vol] 27 mmol/L Normal 21-32 [facility] Comment on above: Performed By: #### 2 4321-2 #### REGGIE Baugh ([id number]) [facility] ([facility] [address] [place] [address] Creatinine [Mass/Vol] 0.62 mg/dL Normal 0.50-1.05 [facility] Comment on above: Performed By: #### 2 4321-2 #### REGGIE Baugh ([id number]) [facility] ([facility] [address] [place] [address] GFR/1.73 sq M.predicted MDRD (S/P/Bld) [Vol rate/Area] mL/min/{1.73_m2} Normal >60 [facility] Comment on above: Result Comment: Calc ulations of estimated GFR are performed using the 2020 CKD-EPI Study Refit equation without the race variable for the IDMS-Traceable creatinine methods. https://jasn.asnjournals.org/content//ASN.14943136 88 Performed By: #### 2 4321-2 #### REGGIE Baugh ([id number]) [facility] ([facility] [address] [place] [address] Glucose [Mass/Vol] 90 mg/dL Normal 74-99 [facility] Comment on above: Performed By: #### 2 4321-2 #### REGGIE Baugh ([id number]) [facility] ([facility]) [address] [place] [address] Potassium [Moles/Vol] 4.9 mmol/L Normal 3.5-5.3 [facility] Comment on above: Performed By: #### 2 4321-2 #### REGGIE Baugh ([id number]) [facility] ([facility]) [id number] [place] [address] Sodium [Moles/Vol] 138 mmol/L Normal 136-145 [facility] Comment on above: Performed By: #### 2 4321-2 #### REGGIE Baugh ([id number]) [facility] ([facility]) [address] [place] [address] Urea nitrogen [Mass/Vol] 25 mg/dL High 6-23 [facility] Comment on above: Performed By: #### 2 4321-2 #### REGGIE Baugh ([id number]) [facility] ([facility] [address] [place] [address] Blood type and Indirect anti body screen panel (Bld)on 02-17-2023 ABO group Nom (Bld) O Normal [facility] Comment on above: Performed By: #### 3 4532-2 #### REGGIE Baugh ([id number]) [facility]OD [facility] ([facility]) [id number] [place] [address] Blood group antibody screen Ql Negative [facility] Comment on above: Performed By: #### 3 4532-2 #### REGGIE Baugh ([id number]) [facility] ([facility]) [address] [place] [address] D Ag Ql (Bld) Positive [facility] Comment on above: Result Comment: 2nd ABO test required. Order and Collect VERAB Performed By: #### 3 4532-2 #### REGGIE Baugh ([id number]) [facility] ([facility]) [address] [place] [address] CBC panel Auto (Bld)on 02-17 Erythrocyte distribution width (RBC) [Ratio] 13.1 % Normal 11.5-14.5 [facility] Comment on above: Performed By: #### 5 8410-2 #### REGGIE Baugh ([id number]) [facility] ([facility] [address] [place] [address] Hematocrit (Bld) [Volume fraction] 41.4 % Normal 36.0-46.0 [facility] Comment on above: Performed By: #### 5 8410-2 #### REGGIE Baugh ([id number]) [facility] ([facility] [address] [place] [address] Hemoglobin (Bld) [Mass/Vol] 13.3 g/dL Normal 12.0-16.0 [facility] Comment on above: Performed By: #### 5 8410-2 #### REGGIE Baugh ([id number]) [facility] ([facility]) [address] [place] [address] 74553 MCH (RBC) [Entitic mass] 28.9 pg Normal 26.0-34.0 [facility] Comment on above: Performed By: #### 5 8410-2 #### REGGIE Baugh ([id number]) [facility] ([facility]) [address] [place] [address] 08782 MCHC (RBC) [Mass/Vol] 32.1 g/dL Normal 32.0-36.0 [facility] Comment on above: Performed By: #### 5 8410-2 #### REGGIE Baugh ([id number]) [facility] ([facility] [address] [place] [address] 91835 MCV (RBC) [Entitic vol] 90 fL Normal 80-100 [facility] Comment on above: Performed By: #### 5 8410-2 #### REGGIE Baugh ([id number]) [facility] ([facility]) [address] [place] [address] Nucleated RBC/100 WBC (Bld) [Ratio] 0.0 /100 WBCs Normal 0.0-0.0 [facility] Comment on above: Performed By: #### 5 8410-2 #### REGGIE Baugh ([id number]) [facility] ([facility]) [address] [place] [address] Platelets (Bld) [#/Vol] 294 x10*3/uL Normal 150-450 [facility] Comment on above: Performed By: #### 5 8410-2 #### REGGIE Baugh ([id number]) [facility] ([facility]) [id number] [place] [address]1130 RBC (Bld) [#/Vol] 4.61 x10*6/uL Normal 4.00-5.20 [facility] Comment on above: Performed By: #### 5 8410-2 #### REGGIE Baugh ([id number]) [facility] ([facility]) [address] [place] [address] 03795 WBC (Bld) [#/Vol] 8.5 x10*3/uL Normal 4.4-11.3 [facility] Comment on above: Performed By: #### 5 8410-2 #### REGGIE Baugh ([id number]) [facility] ([facility]) [id number] [place] [address]8072 HbA1c (Bld) [Mass fraction]o n 02-17-2023 Average glucose Estimated from glycated hemoglobin (Bld) [Mass/Vol] 123 mg/dL Normal Not Established [facility] Comment on above: Order Comment: Diagn osis of Diabetes-Adults Non-Diabetic: < or = 5.6% Increased risk for developing diabetes: 5.7-6.4% Diagnostic of diabetes: > or = 6.5% Monitoring of Diabetes Age (y)....................... Therapeutic Goal (%) Adults: >18.........................<7.0 Pediatrics: 13-18...................<7.5 Pediatrics: 7-12....................<8.0 Pediatrics: 0-6..................... 7.5-8.5 [place]. Diabetes Care 33(S1)Mar 2009 Performed By: #### 4 548-4 #### REGGIE Baugh ([id number]) [facility] ([facility]) [address] [place], [place] [address] Hemoglobin A1c/Hemoglobin.to gustavo 02-17-2023 HbA1c (Bld) [Mass fraction] 5.9 % High see below [facility] Comment on above: Order Comment: Diagn osis of Diabetes-Adults Non-Diabetic: < or = 5.6% Increased risk for developing diabetes: 5.7-6.4% Diagnostic of diabetes: > or = 6.5% Monitoring of Diabetes Age (y)....................... Therapeutic Goal (%) Adults: >18.........................<7.0 Pediatrics: 13-18...................<7.5 Pediatrics: 7-12....................<8.0 Pediatrics: 0-6..................... 7.5-8.5 [place]. Diabetes Care 33(S1)Mar 2009 Performed By: #### 4 548-4 #### REGIGE Baugh ([id number]) [facility] ([facility] [address] [place] [address] PT and aPTT panel Coag (PPP) on 02-17-2023 aPTT Coag (PPP) [Time] 36 s Normal 27-38 [facility] Comment on above: Order Comment: The A PTT is no longer used for monitoring Unfractionated Heparin Therapy. For monitoring Heparin Therapy, use the Heparin Assay. Performed By: #### 3 4529-8 #### REGGIE Baugh ([id number]) [facility] ([facility] [address] [place] [address] INR Coag (PPP) [Relative time] 1.1 Normal 0.9-1.1 [facility] Comment on above: Order Comment: The A PTT is no longer used for monitoring Unfractionated Heparin Therapy. For monitoring Heparin Therapy, use the Heparin Assay. Performed By: #### 3 4529-8 #### ERGGIE Baugh ([id number]) [facility] ([facility] [address] [place] [address] PT Coag (PPP) [Time] 12.8 s Normal 9.8-12.8 [facility] Comment on above: Order Comment: The A PTT is no longer used for monitoring Unfractionated Heparin Therapy. For monitoring Heparin Therapy, use the Heparin Assay. Performed By: #### 3 4529-8 #### REGGIE Baugh ([id number]) [facility] ([facility]) [address] [place] [address] Staphylococcus aureus.methic illin resistant isolateon 02-17-2023 MRSA isol Org specific cx Ql (Nose) Test: Staphylococcus aureus/MRSA colonization, Culture Specimen Source: Nares/Axilla/Groin Specimen Type: Swab Specimen Date: 02/17/2023 1:34 PM Result Date: 02/19/2023 7:40 AM Result Status: Final result Abnormal: No Resulting Lab: [facility] [address] [place] [address] CULTURE No Staphylococcus aureus isolated Normal [facility] Comment on above: Performed By: #### 5 2969-3 #### REGGIE Baugh ([id number]) [facility] ([facility]) [address] [place] [address] Urinalysis complete W Reflex Culture panel (U)on 02-17-2023 Appearance (U) Clear Normal Clear [facility] Comment on above: Performed By: #### 5 8077-9 #### REGGIE Baugh ([id number]) [facility] ([facility]) [address] [place] [address]2841 Bilirubin (U) [Mass/Vol] Negative Normal NEGATIVE [facility] Comment on above: Performed By: #### 5 8077-9 #### REGGIE QUEZADA L ([id number]) [facility] ([facility] [address] [place] [address]67 Color (U) Yellow Normal Straw, Yellow [facility] Comment on above: Performed By: #### 5 8077-9 #### REGGIE Baugh ([id number]) [facility] ([facility] [address] [place] [address] 35865 Glucose Auto test strip (U) [Mass/Vol] Negative Normal NEGATIVE [facility] Comment on above: Performed By: #### 5 8077-9 #### REGGIE QUEZADA L ([id number]) [facility] ([facility] [address] [place] [address] 07989 Ketones (U) [Mass/Vol] Negative Normal NEGATIVE [facility] Comment on above: Performed By: #### 5 8077-9 #### REGGIE QUEZADA L ([id number]) [facility] ([facility] [address] [place] [address] 09050 Leukocyte esterase Auto test strip Ql (U) SMALL (1+) Abnormal NEGATIVE [facility] Comment on above: Performed By: #### 5 8077-9 #### REGGIE QUEZADA L ([id number]) [facility] ([facility] [address] [place] [address] 28964 Nitrite Auto test strip Ql (U) Negative Normal NEGATIVE [facility] Comment on above: Performed By: #### 5 8077-9 #### REGGIE QUEZADA L ([id number]) [facility] ([facility] [address] [place] [address] 23117 pH (U) 5.0 [pH] Normal 5.0, 5.5, 6.0, 6.5, 7.0, 7.5, 8.0 [facility] Comment on above: Performed By: #### 5 8077-9 #### REGGIE Baugh ([id number]) [facility] ([facility] [address] [place] [address]134 Protein (U) [Mass/Vol] Negative Normal NEGATIVE [facility] Comment on above: Performed By: #### 5 8077-9 #### REGGIE QUEZADA L ([id number]) [facility] ([facility] [address] [place] [address] 21872 RBC (U) [#/Vol] Negative Normal NEGATIVE [facility] Comment on above: Performed By: #### 5 8077-9 #### REGGIE Baugh ([id number]) [facility] ([facility] [address] [place] [address] 37829 Specific gravity (U) [Rel density] 1.019 Normal 1.005-1.035 [facility] Comment on above: Performed By: #### 5 8077-9 #### REGGIE QUEZADA L ([id number]) [facility] ([facility] [address] [place] [address] 66347 Urobilinogen (U) [Mass/Vol] mg/dL Normal <2.0 [facility] Comment on above: Performed By: #### 5 8077-9 #### REGGIE QUEZADA L ([id number]) [facility] ([facility]) [address] [place] [address] 89110 Urinalysis microscopic panel Auto Ql (U)on 02-17-2023 Epithelial cells.squamous Auto (Urine sed) [#/Area] 1-9 (SPARSE) Normal Reference range not established. [facility] Comment on above: Performed By: #### 5 3315-8 #### REGGIE QUEZADA L ([id number]) [facility] ([facility] [address] [place] [address] 48813 RBC Auto (Urine sed) [#/Area] 1-2 Normal NONE, 1-2, 3-5 [facility] Comment on above: Performed By: #### 5 3315-8 #### REGGIE Baugh ([id number]) [facility] ([facility] [address] [place] [address] WBC Auto (Urine sed) [#/Area] 1-5 Normal 1-5, NONE [facility] Comment on above: Performed By: #### 5 3315-8 #### REGGIE Baugh ([id number]) [facility] ([facility] [address] [place] [address] XR foot LT min 3V*on 023 XR foot LT min 3V* [facility] [employer] Other XR foot LT min 3V* [facility] [employer] Other XR foot LT min 3V* [address] [place] [address] [employer] Other XR foot LT min 3V* [place] [address] [employer] Other XR foot LT min 3V* XRay Report [employer] Other XR foot LT min 3V* Signed [employer] Other XR foot LT min 3V* Patient: Ya Womack MR#: [id number] [employer] Other XR foot LT min 3V* 671 [employer] Other XR foot LT min 3V* : 1965 Acct:[id number] [employer] Other XR foot LT min 3V* Age/Sex: 57 / F ADM Date: 09/12/22 [employer] Other XR foot LT min 3V* Loc: XDUCLY Room: Type: REG CLI [employer] Other XR foot LT min 3V* Attending Dr: Carol CORTEZ [employer] Other XR foot LT min 3V* Copies to: DANA Che [employer] Other XR foot LT min 3V* Ordering Provider: DANA Che [employer] Other XR foot LT min 3V* Date of Service: 09/12/22 [employer] Other XR foot LT min 3V* XR/XR foot LT min 3V*: Left foot pain [employer] Other XR foot LT min 3V* XR foot LT min 3V* 09/12/2022 12:11 PM [employer] Other XR foot LT min 3V* SIGNS AND SYMPTOMS: Left foot pain and swelling [employer] Other XR foot LT min 3V* PROTOCOL: Frontal, lateral, and oblique radiographs of the left foot [employer] Other XR foot LT min 3V* COMPARISON: None [employer] Other XR foot LT min 3V* FINDINGS: [employer] Other XR foot LT min 3V* There is a remote healed fifth metatarsal fracture. The joint spaces are preserved. There is no [employer] Other XR foot LT min 3V* evidence of acute displaced fracture. There is plantar surface calcaneal spurring. There is diffuse [employer] Other XR foot LT min 3V* soft tissue swelling. [employer] Other XR foot LT min 3V* XR/XR foot LT min 3V* [employer] Other XR foot LT min 3V* IMPRESSION: [employer] Other XR foot LT min 3V* No acute displaced fracture. [employer] Other XR foot LT min 3V* There is a remote healed fifth metatarsal fracture. [employer] Other XR foot LT min 3V* There is diffuse sof t tissue swelling which is nonspecific. [employer] Other XR foot LT min 3V* Impression dictated by: Alli Woods M.D.09/12/2022 12:29 PM [employer] Other XR foot LT min 3V* Dictation Location: RADIO-PC-13 [employer] Other XR foot LT min 3V* Transcribed By: KEERTHI 09/12/22 1229 [employer] Other XR foot LT min 3V* Dictated By: Alli Woods II, MD 09/12/22 122 [employer] Other XR foot LT min 3V* Signed By: [employer] Other XR foot LT min 3V* 09/12/[address] [place] [address] [employer] Other FREE T4on 12-12-2021 Free T4 [Mass/Vol] 0.86 ng/dL Normal 0.76-1.46 [facility] Comment on above: Performed By: #### F T4 #### [facility] [address] [place] [address] Dr. Jose Luis Diaz MG MAMM SCREEN 3D RAFY CADon 12-12-2021 MG MAMM SCREEN 3D RAFY CAD Patient: YA WOMACK Exam Date: 12/12/2021 : 1965 Gender:F Ordering : DR HARLAN ALMEIDA Admission #: [id number] Family : DR OLAF ANGUIANO Order #: [id number] CLICK HERE TO VIEW EXAM RADIOLOGY REPORT [...] lung cancer at age 49. LOCATION: [facility] BREAST COMPOSITION: Almost entirely fatty. FINDINGS: [...] Thompson MD on 12/12/2021 at 12:58 Normal [facility] TSHon 12-12-2021 TSH 1.592 uIU/mL Normal 0.358-3.740 [facility] Comment on above: Performed By: #### T SH #### [facility] [address] [address] [address] Jose Luis Diaz MICROALBUMIN/ CREATININE RAT IOon 11-25-2021 Albumin, Urine 170.0 ug/mL Normal Not Estab. [facility] Comment on above: Performed By: #### M ALBCRL #### [facility] [address] [address] [address] Jose Luis Diaz Albumin/ Creatinine Ratio 78 mg/g creat Critically high 0-29 [facility] Comment on above: Result Comment: Norm al: 0 - 29 Moderately increased: 30 - 300 Severely increased: >300 Performed By: #### M ALBCRL #### [facility] [address] [address] [address] Jose Luis Diaz Creatinine, Urine 216.7 mg/dL Normal Not Estab. [facility] Comment on above: Performed By: #### M ALBCRL #### [facility] [address] [place] [address] Dr. Jose Luis Diaz GLYCOHEMOGLOBIN A1Con 2021 ADA RECOMMENDATION SEE BELOW Normal [facility] Comment on above: Result Comment: ADA RECOMMENDED LIMIT 4.0 - 6.0 ADA THERAPEUTIC TARGET < 7.0 ACTION SUGGESTED > 7.0 Performed By: #### A 1C #### [facility] [address] [address] [address] Jose Luis Diaz Glucose [Mass/Vol] 126 mg/dL Normal [facility] Comment on above: Performed By: #### A 1C #### [facility] [address] [address] [address] Jose Luis Diaz HbA1c (Bld) [Mass fraction] 6.0 % Normal 4.5-6.2 [facility] Comment on above: Performed By: #### A 1C #### [facility] [address] [address] [address] Jose Luis Diaz LIPID PROFILEon 11-24-2021 CHOL-HDL RATIO NORM SEE BELOW Normal [facility] Comment on above: Result Comment: 3.3 - 4.4 LOW RISK 4.4 - 7.1 AVERAGE RISK 7.1 - 11.0 MODERATE RISK >11.0 HIGH RISK Performed By: #### L IPID, CMP #### [facility] [address] [place] [address] Dr. Jose Luis Diaz Cholesterol [Mass/Vol] 201 mg/dL Critically high <=200 [facility] Comment on above: Performed By: #### L IPID, CMP #### [facility] [address] [place] [address] Dr. Jose Luis Diaz Cholesterol in HDL [Mass/Vol] 60 mg/dL Normal 40-60 [facility] Comment on above: Performed By: #### L IPID, CMP #### [facility] [address] [address] [address] Jose Luis Diaz Cholesterol in LDL [Mass/Vol] 111.0 mg/dL Normal [facility] Comment on above: Performed By: #### L IPID, CMP #### [facility] [address] [place] [address] Dr. Jose Luis Diaz Cholesterol.total/C holesterol in HDL [Mass ratio] 3.4 {ratio} Normal [facility] Comment on above: Performed By: #### L IPID, CMP #### [facility] [address] [address] [address] Jose Luis Diaz HDL NORMAL > or = 60 mg/dl - LO W CARDIOVASCULAR RISK <40 mg/dl - HIGH CARDIOVASCULAR RISK Normal [facility] Comment on above: Performed By: #### L IPID, CMP #### [facility] [address] [place] [address] Dr. Jose Luis Diaz LDL CALC NORMAL SEE BELOW Normal [facility] Comment on above: Result Comment: <100 mg/dl OPTIMAL 100 - 129 mg/dl NEAR OR ABOVE OPTIMAL 130 - 159 mg/dl BORDERLINE HIGH 160 - 189 mg/dl HIGH >190 mg/dl VERY HIGH Performed By: #### L IPID, CMP #### [facility] [address] [place] [address] Dr. Jose Luis Diaz Triglyceride [Mass/Vol] 150 mg/dL Normal <=150 [facility] Comment on above: Performed By: #### L IPID, CMP #### [facility] [address] [place] [address] Dr. Jose Luis Diaz VLDL CALC 30.0 mg/dL Normal [facility] Comment on above: Performed By: #### L IPID, CMP #### [facility] [address] [place] [address] Dr. Jose Luis Diaz PROF 14(COMP METB)on 022 Albumin [Mass/Vol] 3.6 g/dL Normal 3.4-5.0 [facility] Comment on above: Performed By: #### L IPID, CMP #### [facility] [address] [place] [address] Dr. Jose Luis Diaz Albumin/Globulin [Mass ratio] 0.8 {ratio} Normal [facility] Comment on above: Performed By: #### L IPID, CMP #### [facility] [address] [place] [address] Dr. Jose Luis Diaz ALP [Catalytic activity/Vol] 79 U/L Normal 46-116 [facility] Comment on above: Performed By: #### L IPID, CMP #### [facility] [address] [place] [address] Dr. Jose Luis Diaz ALT [Catalytic activity/Vol] 23 U/L Normal 14-59 [facility] Comment on above: Performed By: #### L IPID, CMP #### [facility] [address] [place] [address] Dr. Jose Luis Diaz Anion gap [Moles/Vol] 10.9 mmol/L Normal [facility] Comment on above: Performed By: #### L IPID, CMP #### [facility] [facility] [address] [place] [address] Dr. Jose Luis Diaz AST [Catalytic activity/Vol] 16 U/L Normal 15-37 [facility] Comment on above: Performed By: #### L IPID, CMP #### [facility] [address] [place] [address] Dr. Jose Luis Diaz Bilirubin [Mass/Vol] 0.4 mg/dL Normal 0.2-1.0 [facility] Comment on above: Performed By: #### L IPID, CMP #### [facility] [address] [place] [address] Dr. Jose Luis Diaz Calcium [Mass/Vol] 9.4 mg/dL Normal 8.5-10.1 [facility] Comment on above: Performed By: #### L IPID, CMP #### [facility] [address] [place] [address] Dr. Jose Luis Diaz Chloride [Moles/Vol] 101 mmol/L Normal 98-107 [facility] Comment on above: Performed By: #### L IPID, CMP #### [facility] [address] [place] [address] Dr. Jose Luis Diaz CO2 [Moles/Vol] 29.2 mmol/L Normal 21.0-32.0 [facility] Comment on above: Performed By: #### L IPID, CMP #### [facility] [address] [place] [address] Dr. Jose Luis Diaz Creatinine [Mass/Vol] 0.80 mg/dL Normal 0.55-1.02 [facility] Comment on above: Performed By: #### L IPID, CMP #### [facility] [address] [place] [address] Dr. Jose Luis Diaz EGFR-AF SPANISH >60 Normal >=60 [facility] Comment on above: Performed By: #### L IPID, CMP #### [facility] [address] [address] [address] Jose Luis Diaz EGFR-NON AF SPANISH >60 Normal >=60 [facility] Comment on above: Performed By: #### L IPID, CMP #### [facility] [address] [address] [address] Jose Luis Diaz Globulin (S) [Mass/Vol] 4.3 g/dL Normal [facility] Comment on above: Performed By: #### L IPID, CMP #### [facility] [address] [address] [address] Jose Luis Diaz Glucose [Mass/Vol] 129 mg/dL Critically high 74-106 [facility] Comment on above: Performed By: #### L IPID, CMP #### [facility] [address] [address] [address] Jose Luis Diaz Potassium [Moles/Vol] 4.1 mmol/L Normal 3.5-5.1 [facility] Comment on above: Performed By: #### L IPID, CMP #### [facility] [address] [place] [address] Dr. Jose Luis Diaz Protein [Mass/Vol] 7.9 g/dL Normal 6.4-8.2 [facility] Comment on above: Performed By: #### L IPID, CMP #### [facility] [address] [place] [address] Dr. Jose Luis Diaz Sodium [Moles/Vol] 137 mmol/L Normal 136-145 [facility] Comment on above: Performed By: #### L IPID, CMP #### [facility] [address] [place] [address] Dr. Jose Luis Diaz Urea nitrogen [Mass/Vol] 12.0 mg/dL Normal 7.0-18.0 [facility] Comment on above: Performed By: #### L IPID, CMP #### [facility] [address] [place] [address] Dr. Jose Luis Diaz Urea nitrogen/Creatinine [Mass ratio] 15.0 mg/mg Normal [facility] Comment on above: Performed By: #### L IPID, CMP #### [facility] [address] [address] [address] Jose Luis Diaz XR ankle RT min 3V*on 2021 XR ankle RT min 3V* [facility] [employer] Other XR ankle RT min 3V* [facility] [employer] Other XR ankle RT min 3V* [address] [place] [address] [employer] Other XR ankle RT min 3V* [place] [address] [employer] Other XR ankle RT min 3V* XRay Report [facility] [employer] Other XR ankle RT min 3V* Signed [employer] Other XR ankle RT min 3V* Patient: Ya Womack MR#: [id number] [employer] Other XR ankle RT min 3V* 671 [employer] Other XR ankle RT min 3V* : 1965 Acct:[id number] [employer] Other XR ankle RT min 3V* Age/Sex: 56 / F ADM Date: 07/18/21 [employer] Other XR ankle RT min 3V* Loc: XDUCLY Room: Type: [facility] [employer] Other XR ankle RT min 3V* Attending Dr: Carol CORTEZ [employer] Other XR ankle RT min 3V* Ordering Provider: DANA Che [employer] Other XR ankle RT min 3V* Date of Service: 07/18/21 [employer] Other XR ankle RT min 3V* XR/XR ankle RT min 3V*: Acute right ankle pain [employer] Other XR ankle RT min 3V* Copies to: DAILY CheC [employer] Other XR ankle RT min 3V* RIGHT ANKLE - 3 views [employer] Other XR ankle RT min 3V* CLINICAL HISTORY: Patient with right ankle 3 days ago walking down steps. Lateral ankle pain. [employer] Other XR ankle RT min 3V* COMPARISON: None [employer] Other XR ankle RT min 3V* FINDINGS: [employer] Other XR ankle RT min 3V* Soft tissue swelling . Chip fracture lateral malleolus. Ankle mortise appears intact. Plantar [employer] Other XR ankle RT min 3V* spurring. [employer] Other XR ankle RT min 3V* XR/XR ankle RT min 3V* [employer] Other XR ankle RT min 3V* IMPRESSION: [employer] Other XR ankle RT min 3V* CHIP FRACTURE LATERA L MALLEOLUS WITH SOFT TISSUE SWELLING. [employer] Other XR ankle RT min 3V* Impression dictated by: Aidan Grullon Jr., Elias07/18/2021 12:03 PM [employer] Other XR ankle RT min 3V* Dictation Location: [facility]--13 [employer] Other XR ankle RT min 3V* Transcribed By: PWS 07/18/21 1203 [employer] Other XR ankle RT min 3V* Dictated By: Aidan Grullon Jr DO 07/18/21 1203 [employer] Other XR ankle RT min 3V* Signed By: [employer] Other XR ankle RT min 3V* 07/18/21 1203 No rt [employer] Other COMPREHENSIVE METABOLIC PANE Anand 05-01-2021 Albumin [Mass/Vol] 4.4 g/dL Normal 3.6-5.1 [facility] Comment on above: Performed By: #### 1 0231, 7600 #### [facility] of [address] [address] Community Midwife: Pedrito Fontaine MD Albumin/Globulin [Mass ratio] 1.6 {ratio} Normal 1.0-2.5 [facility] Comment on above: Performed By: #### 1 0231, 7600 #### [facility] [address] [place] [address] Community Midwife: Pedrito Fontaine MD ALP [Catalytic activity/Vol] 63 U/L Normal 37-153 [facility] Comment on above: Performed By: #### 1 0231, 7600 #### [facility] [place] [address] Community Midwife: Pedrito Fontaine MD ALT [Catalytic activity/Vol] 17 U/L Normal 6-29 [facility] Comment on above: Performed By: #### 1 0231, 7600 #### [facility] [place] [address] Community Midwife: Pedrito Fontaine MD AST [Catalytic activity/Vol] 18 U/L Normal 10-35 [facility] Comment on above: Performed By: #### 1 0231, 7600 #### [facility] [place] [address] Community Midwife: Pedrito Fontaine MD Bilirubin [Mass/Vol] 0.4 mg/dL Normal 0.2-1.2 [facility] Comment on above: Performed By: #### 1 0231, 7600 #### [facility] of [address], [address] [place] [address] Community Midwife: Pedrito Fontaine MD BUN/CREATININE RATIO NOT APPLICABLE Normal 6-22 [facility] Comment on above: Performed By: #### 1 0231, 7600 #### [facility] of [address], [address] [place] [address] Community Midwife: Pedrito Fontaine MD Calcium [Mass/Vol] 9.7 mg/dL Normal 8.6-10.4 [facility] Comment on above: Performed By: #### 1 023, 7600 #### [facility] of [address], [address] [place] [address] Community Midwife: Pedrito Fontaine MD Chloride [Moles/Vol] 104 mmol/L Normal 98-110 [facility] Comment on above: Performed By: #### 1 023, 7600 #### [facility] of [address], [address] [place] [address] Community Midwife: Pedrito Fontaine MD CO2 [Moles/Vol] 27 mmol/L Normal 20-32 [facility] Comment on above: Performed By: #### 1 023, 7600 #### [facility] of [address], [address] [place] [address] Community Midwife: Pedrito Fontaine MD Creatinine [Mass/Vol] 0.69 mg/dL Normal 0.50-1.05 [facility] Comment on above: Result Comment: For patients >49 years of age, the reference limit for Creatinine is approximately 13% higher for people identified as -Cambodian. Performed By: #### 1 0231, 7600 #### [facility] of [address], [address] [place] [address] Community Midwife: Pedrito Fontaine MD eGFR NON-AFR. SPANISH 97 mL/min/1.73m2 Normal > OR = 60 [facility] Comment on above: Performed By: #### 1 0231, 7600 #### [facility] of [address], [address] [place] [address] Community Midwife: Pedrtio Fontaine MD GFR/1.73 sq M.predicted among blacks MDRD (S/P/Bld) [Vol rate/Area] 112 mL/min/{1.73_m2} Normal > OR = 60 [facility] Comment on above: Performed By: #### 1 023, 7600 #### [facility] [place] [address] Community Midwife: Pedrito Fontaine MD Globulin (S) [Mass/Vol] 2.8 g/dL Normal 1.9-3.7 [facility] Comment on above: Performed By: #### 1 023, 7600 #### [facility] [place] [address] Community Midwife: Pedrito Fontaine MD Glucose [Mass/Vol] 104 mg/dL High 65-99 [facility] Comment on above: Result Comment: Fasting reference interval For someone without known diabetes, a glucose value between 100 and 125 mg/dL is consistent with prediabetes and should be confirmed with a follow-up test. Performed By: #### 1 023, 7600 #### [facility] [place] [address] Community Midwife: Pedrito Fontaine MD Potassium [Moles/Vol] 4.8 mmol/L Normal 3.5-5.3 [facility] Comment on above: Performed By: #### 1 023, 7600 #### [facility] [place] [address] Community Midwife: Pedrito Fontaine MD Protein [Mass/Vol] 7.2 g/dL Normal 6.1-8.1 [facility] Comment on above: Performed By: #### 1 023, 7600 #### [facility] [place] [address] Community Midwife: Pedrito Fontaine MD Sodium [Moles/Vol] 143 mmol/L Normal 135-146 [facility] Comment on above: Performed By: #### 1 0231, 7600 #### [facility] [address] [address] [place] [address] Community Midwife: Pedrito Fontaine MD Urea nitrogen [Mass/Vol] 16 mg/dL Normal 7-25 [facility] Comment on above: Performed By: #### 1 0231, 7600 #### [facility] [address], [address] [place] [address] Community Midwife: Pedrito Fontaine MD LIPID PANEL, [facility] 04-09 Cholesterol [Mass/Vol] 195 mg/dL Normal <200 [facility] Comment on above: Order Comment: FASTI NG:YES FASTING: YES Performed By: #### 1 0231, 7600 #### [facility] [address], [address] [place] [address] Community Midwife: Pedrito Fontaine MD Cholesterol in HDL [Mass/Vol] 63 mg/dL Normal > OR = 50 [facility] Comment on above: Order Comment: FASTI NG:YES FASTING: YES Performed By: #### 1 0231, 7600 #### [facility] [address], [address] [place] [address] Community Midwife: Pedrito Fontaine MD Cholesterol in LDL [Mass/Vol] [...] LDL-C. Keven CANNON et al. JOSEPH. 2013;310(19): 6652-0684 (http://education.[employer]/faq/PHC294) Performed By: #### 1 0231, 7600 #### [facility] [address], [address] [place] [address] Community Midwife: Pedrito Fontaine MD Cholesterol.total/C holesterol in HDL [Mass ratio] 3.1 {ratio} Normal <5.0 [facility] Comment on above: Order Comment: FASTI NG:YES FASTING: YES Performed By: #### 1 0231, 7600 #### [facility] [address] [place] [address] Community Midwife: Pedrito Fontaine MD NON HDL CHOLESTEROL 132 mg/dL (calc) High <130 [facility] Comment on above: Order Comment: FASTI NG:YES FASTING: YES Result Comment: For patients with diabetes plus 1 major ASCVD risk factor, treating to a non-HDL-C goal of <100 mg/dL (LDL-C of <70 mg/dL) is considered a therapeutic option. Performed By: #### 1 0231, 7600 #### [facility] [place] [address] Community Midwife: Pedrito Fontaine MD Triglyceride [Mass/Vol] 192 mg/dL High <150 [facility] Comment on above: Order Comment: FASTI NG:YES FASTING: YES Performed By: #### 1 0231, 7600 #### [facility] [address], [address] [place] [address] Community Midwife: Pedrito Fontaine MD [facility] 10-09-2020 Albumin [Mass/Vol] 4.2 g/dL Normal 3.6-5.1 [facility] Comment on above: Performed By: #### 1 0231, 7600 #### [facility] [place] [address] Community Midwife: Pedrito Fontaine MD Albumin/Globulin [Mass ratio] 1.6 {ratio} Normal 1.0-2.5 [facility] Comment on above: Performed By: #### 1 0231, 7600 #### [facility] [place] [address] Community Midwife: Pedrito Fontaine MD ALP [Catalytic activity/Vol] 56 U/L Normal 37-153 [facility] Comment on above: Performed By: #### 1 0231, 7600 #### [facility] [place] [address] Community Midwife: Pedrito Fontaine MD ALT [Catalytic activity/Vol] 7 U/L Normal 6-29 [facility] Comment on above: Performed By: #### 1 0231, 7600 #### [facility] of [address] [place] [address] Community Midwife: Pedrito Fontaine MD AST [Catalytic activity/Vol] 10 U/L Normal 10-35 [facility] Comment on above: Performed By: #### 1 0231, 7600 #### [facility] of [address] [place] [address] Community Midwife: Pedrito Fontaine MD Bilirubin [Mass/Vol] 0.3 mg/dL Normal 0.2-1.2 [facility] Comment on above: Performed By: #### 1 023, 7600 #### [facility] of [address] [place] [address] Community Midwife: Pedrito Fontaine MD BUN/CREATININE RATIO NOT APPLICABLE Normal 6-22 [facility] Comment on above: Performed By: #### 1 023, 7600 #### [facility] of [address] [place] [address] Community Midwife: Pedrito Fontaine MD Calcium [Mass/Vol] 9.3 mg/dL Normal 8.6-10.4 [facility] Comment on above: Performed By: #### 1 0231, 7600 #### [facility] of [address] [place] [address] Community Midwife: Pedrito Fontaine MD Chloride [Moles/Vol] 101 mmol/L Normal 98-110 [facility] Comment on above: Performed By: #### 1 0231, 7600 #### [facility] of [address] [place] [address] Community Midwife: Pedrito Fontaine MD CO2 [Moles/Vol] 27 mmol/L Normal 20-32 [facility] Comment on above: Performed By: #### 1 0231, 7600 #### [facility] of [place] [address] [place] [address] Community Midwife: Pedrito Fontaine MD Creatinine [Mass/Vol] 0.67 mg/dL Normal 0.50-1.05 [facility] Comment on above: Result Comment: For patients >49 years of age, the reference limit for Creatinine is approximately 13% higher for people identified as -Cambodian. Performed By: #### 1 023, 7600 #### [facility] [place] [address] Community Midwife: Pedrito Fontaine MD eGFR NON-AFR. SPANISH 98 mL/min/1.73m2 Normal > OR = 60 [facility] Comment on above: Performed By: #### 1 023, 7600 #### [facility] [place] [address] Community Midwife: Pedrito Fontaine MD GFR/1.73 sq M.predicted among blacks MDRD (S/P/Bld) [Vol rate/Area] 114 mL/min/{1.73_m2} Normal > OR = 60 [facility] Comment on above: Performed By: #### 1 023, 0 #### [facility] [place] [address] Community Midwife: Pedrito Fontaine MD Globulin (S) [Mass/Vol] 2.6 g/dL Normal 1.9-3.7 [facility] Comment on above: Performed By: #### 1 023, 7600 #### [facility] [place] [address] Community Midwife: Pedrito Fontaine MD Glucose [Mass/Vol] 88 mg/dL Normal 65-99 [facility] Comment on above: Result Comment: Fasting reference interval Performed By: #### 1 023, 7600 #### [facility] [place] [address] Community Midwife: Pedrito Fontaine MD Potassium [Moles/Vol] 4.7 mmol/L Normal 3.5-5.3 [facility] Comment on above: Performed By: #### 1 023, 0 #### [facility] of [address], [address] [place] [address] Community Midwife: Pedrito Fontaine MD Protein [Mass/Vol] 6.8 g/dL Normal 6.1-8.1 [facility] Comment on above: Performed By: #### 1 0231, 7600 #### [facility] of [address], [address] [place] [address] Community Midwife: Pedrito Fontaine MD Sodium [Moles/Vol] 139 mmol/L Normal 135-146 [facility] Comment on above: Performed By: #### 1 0231, 7600 #### [facility] of [address] [address] Community Midwife: Pedrito Fontaine MD Urea nitrogen [Mass/Vol] 22 mg/dL Normal 7-25 [facility] Comment on above: Performed By: #### 1 0231, 7600 #### [facility] of [address] [address] Community Midwife: Pedrito Fontaine MD LIPID PANEL, [facility] 08-0 Cholesterol [Mass/Vol] 210 mg/dL High <200 [facility] Comment on above: Performed By: #### 1 0231, 7600 #### [facility] of [place] [address] Community Midwife: Pedrito Fontaine MD Cholesterol in HDL [Mass/Vol] 59 mg/dL Normal > OR = 50 [facility] Comment on above: Performed By: #### 1 0231, 7600 #### [facility] of [place] [address] Community Midwife: Pedrito Fontaine MD Cholesterol in LDL [Mass/Vol] 121 mg/dL High [facility] Comment on above: Result Comment: Refe rence range: <100 Desirable range <100 mg/dL for primary prevention; <70 mg/dL for patients with CHD or diabetic patients with > or = 2 CHD risk factors. LDL-C is now calculated using the Keven-Alexander calculation, which is a validated novel method providing better accuracy than the Friedewald equation in the estimation of LDL-C. Keven SS et al. JOSEPH. 2013;310(19): 7907-7951 (http://education.[employer]/faq/UYS336) Performed By: #### 1 0231, 7600 #### [facility] [address], [address] [place] [address] Community Midwife: Pedrito Fontaine MD Cholesterol.total/C holesterol in HDL [Mass ratio] 3.6 {ratio} Normal <5.0 [facility] Comment on above: Performed By: #### 1 0231, 7600 #### [facility] [address], [address] [place] [address] Community Midwife: Pedrito Fontaine MD NON HDL CHOLESTEROL 151 mg/dL (calc) High <130 [facility] Comment on above: Result Comment: For patients with diabetes plus 1 major ASCVD risk factor, treating to a non-HDL-C goal of <100 mg/dL (LDL-C of <70 mg/dL) is considered a therapeutic option. Performed By: #### 1 023, 7600 #### [facility] [address], [address] [place] [address] Community Midwife: Pedrito Fontaine MD Triglyceride [Mass/Vol] 179 mg/dL High <150 [facility] Comment on above: Performed By: #### 1 023, 7600 #### [facility] [address], [address] [place] [address] Community Midwife: Pedrito Fontaine MD KNEE LEFT 3 VWSon 03-10-2019 KNEE LEFT 3 VWS [facility] Department of Radiology [address] [place] [id number] Patient Name: YA WOMACK : 1965 Sex: F Age: Race: White Pt. Location: 84 Patient Status: O Ordered Date: 03/10/2019 3:35:00 PM Completed Date: 03/10/2019 03:37 PM Requesting Provider: RISA HAYWOOD Attending Provider: RISA HAYWOOD Report Copy To: Signs & Symptoms: M25.562 Pain in left knee I10 History: Daniela Comments: , Views (X-RAY, KNEE): AP, Lateral, Lilly , Weight Bearing?: Y , Views (X-RAY, KNEE): AP, Lateral, Lilly , Weight Bearing?: Y , , , Ordering Provider - RISA HAYWOOD PA-C , Exam: KNEE LEFT 3 VWS KNEE LEFT 3 VWS 03/10/2019 3:37 PM EST SIGNS AND SYMPTOMS: M25.562 Pain in left knee I10 TECHNOLOGIST COMMENTS: pt states having bilateral knee pain post fall 10 days ago QUESTION FOR THE RADIOLOGIST: , Views (X-RAY, KNEE): AP, Lateral, Lilly , Weight Bearing?: Y , Views (X-RAY, KNEE): AP, Lateral, Lilly , Weight Bearing?: Y , , , [...] 7017. Electronically signed by:Gini Martin. Transcribed by: [email or web address], User Resident: Electronically Signed by: GINI MARTIN @ 03/10/2019 03:48 PM Normal [facility] Comment on above: Order Comment: , Nakitae ws (X-RAY, KNEE): AP, Lateral, Lilly , Weight Bearing?: Y , Views (X-RAY, KNEE): AP, Lateral, Lilly , Weight Bearing?: Y , , , Ordering Provider - RISA HAYWOOD PA-C , KNEE RIGHT 3 Son 0 KNEE RIGHT 3 [facility] Department of Radiology [address] [place] [id number] Patient Name: YA WOMACK : 1965 Sex: F Age: Race: White Pt. Location: Patient Status: O Ordered Date: 03/10/2019 3:35:00 PM Completed Date: 03/10/2019 03:37 PM Requesting Provider: RISA HAYWOOD Attending Provider: RISA HAYWOOD Report Copy To: Signs & Symptoms: M25.561 Pain in right knee I10 History: [place] Comments: , Views (X-RAY, KNEE): AP, Lateral, Lilly , Weight Bearing?: Y , Views (X-RAY, KNEE): AP, Lateral, Lilly , Weight Bearing?: Y , , , Ordering Provider - RISA HAYWOOD PA-C , Exam: KNEE RIGHT 3 [facility] KNEE RIGHT 3 VWS 03/10/2019 3:37 PM EST SIGNS AND SYMPTOMS: M25.561 Pain in right knee I10 TECHNOLOGIST COMMENTS: pt states having bilateral knee pain post fall 10 days ago QUESTION FOR THE RADIOLOGIST: , Views (X-RAY, KNEE): AP, Lateral, Lilly , Weight Bearing?: Y , Views (X-RAY, KNEE): AP, Lateral, Lilly , Weight Bearing?: Y , , , [...] 05/12/2017 Electronically signed by:Gini Martin. Transcribed by: [email or web address], User Resident: Electronically Signed by: GINI MARTIN @ 03/10/2019 03:49 PM Normal [facility] Comment on above: Order Comment: , Gi ws (X-RAY, KNEE): AP, Lateral, Lilly , Weight Bearing?: Y , Views (X-RAY, KNEE): AP, Lateral, Lilly , Weight Bearing?: Y , , , Ordering Provider - RISA HAYWOOD PA-C , Vital Signs Date Time Vital Sign Value Performing Clinician Facility 01-20-2024 11:36-0500 Body height 170.2 cm Leoncio DONOVAN Work Phone: [facility] 01-20-2024 11:36-0500 Body mass index (BMI) [Ratio] 31.58 kg/m2 Leoncio DONOVAN Work Phone: [facility] 01-20-2024 11:36-0500 Body temperature 98.01 [degF] Leoncio Bingham APRN-HUGH Work Phone: [facility] [employer] [facility] 01-20-2024 11:36-0500 Body weight 91.44 kg Leoncio Bingham ORNAMENTAL IRONWORKER HELPER-WATER USE INSPECTOR Work Phone: [facility] 01-20-2024 11:36-0500 Diastolic blood pressure 60 mm[Hg] Leoncio Bingham APRN-WATER USE INSPECTOR Work Phone: [facility] 01-20-2024 11:36-0500 Heart rate 74 /min Leoncio Bingham APRN-WATER USE INSPECTOR Work Phone: [facility] 01-20-2024 11:36-0500 Respiratory rate 18 /min Leoncio Bingham APRN-WATER USE INSPECTOR Work Phone: [facility] 01-20-2024 11:36-0500 SaO2% (BldA) [Mass fraction] 94 % Leoncio Bingham APRN-WATER USE INSPECTOR Work Phone: [facility] 01-20-2024 11:36-0500 Systolic blood pressure 90 mm[Hg] Leoncio Bingham APRN-WATER USE INSPECTOR Work Phone: [facility] 12-21-2023 10:08-0400 Body height 167.6 cm Mac Dawna DO Work Phone: [facility] 12-21-2023 10:08-0400 Body mass index (BMI) [Ratio] 32.83 kg/m2 Mac Dawna DO Work Phone: [facility] 12-21-2023 10:08-0400 Body weight 92.26 kg Mac Dawna DO Work Phone: [facility] 12-21-2023 10:08-0400 Diastolic blood pressure 86 mm[Hg] Mac Dawna DO Work Phone: [facility] 12-21-2023 10:08-0400 Heart rate 82 /min Mac Dawna DO Work Phone: [facility] 12-21-2023 10:08-0400 SaO2% (BldA) [Mass fraction] 97 % Mac Toney DO Work Phone: [facility] 12-21-2023 10:08-0400 Systolic blood pressure 124 mm[Hg] Mac Toney DO Work Phone: [facility] 05-18-2023 13:11-0400 Body height 170.2 cm Brandon Sotelo ORNAMENTAL IRONWORKER HELPER-WATER USE INSPECTOR Work Phone: [facility] 05-18-2023 13:11-0400 Body mass index (BMI) [Ratio] 43.68 kg/m2 Brandon Sotelo ORNAMENTAL IRONWORKER HELPER-WATER USE INSPECTOR Work Phone: [facility] 05-18-2023 13:11-0400 Body temperature 97.3 [degF] Brandon Sotelo ORNAMENTAL IRONWORKER HELPER-WATER USE INSPECTOR Work Phone: [facility] [employer] [facility] 05-18-2023 13:11-0400 Body weight 126.51 kg Brandonrogelio Sotelo ORNAMENTAL IRONWORKER HELPER-WATER USE INSPECTOR Work Phone: [facility] [employer] 05-18-2023 13:11-0400 Diastolic blood pressure 80 mm[Hg] Brandon Sotelo ORNAMENTAL IRONWORKER HELPER-WATER USE INSPECTOR Work Phone: [facility] 05-18-2023 13:11-0400 Heart rate 74 /min Brandon Sotelo ORNAMENTAL IRONWORKER HELPER-WATER USE INSPECTOR Work Phone: [facility] 05-18-2023 13:11-0400 SaO2% (BldA) [Mass fraction] 95 % Brandonrogelio Sotelo ORNAMENTAL IRONWORKER HELPER-WATER USE INSPECTOR Work Phone: [facility] 05-18-2023 13:11-0400 Systolic blood pressure 120 mm[Hg] Brandon Sotelo ORNAMENTAL IRONWORKER HELPER-WATER USE INSPECTOR Work Phone: [facility] 04-23-2023 10:51-0500 Body height 167.64 cm [facility] 04-23-2023 10:51-0500 Body mass index (BMI) [Ratio] 49.2 kg/m2 [facility] 04-23-2023 10:51-0500 Body temperature 98.5 [degF] [facility] 04-23-2023 10:51-0500 Body weight 138.34 kg [facility] 04-23-2023 10:51-0500 Diastolic blood pressure 77 mm[Hg] [facility] 04-23-2023 10:51-0500 Heart rate 86 /min [facility] 04-23-2023 10:51-0500 Respiratory rate 18 /min [facility] 04-23-2023 10:51-0500 SaO2% (BldA) [Mass fraction] 98 % [facility] 04-23-2023 10:51-0500 Systolic blood pressure 128 mm[Hg] [facility] 03-16-2023 12:58-0500 Body height 167.6 cm Fercho Ham MD Work Phone: [facility] 03-16-2023 12:58-0500 Body mass index (BMI) [Ratio] 51.88 kg/m2 Fercho Ham MD Work Phone: [facility] 03-16-2023 12:58-0500 Body temperature 96.21 [degF] Fercho Ham MD Work Phone: [facility] 03-16-2023 12:58-0500 Body weight 145.79 kg Fercho Ham MD Work Phone: [facility] 02-25-2023 15:38-0500 Body temperature 97.7 [degF] Clayton Hawley MD Work Phone: [facility] 02-25-2023 15:38-0500 Diastolic blood pressure 77 mm[Hg] Clayton Hawley MD Work Phone: [facility] 02-25-2023 15:38-0500 Heart rate 81 /min Clayton Hawley MD Work Phone: [facility] 02-25-2023 15:38-0500 Respiratory rate 16 /min Clayton Hawley MD Work Phone: [facility] 02-25-2023 15:38-0500 SaO2% (BldA) [Mass fraction] 92 % Clayton Hawley MD Work Phone: [facility] 02-25-2023 15:38-0500 Systolic blood pressure 143 mm[Hg] Clayton Hawley MD Work Phone: [facility] 02-24-2023 00:00-0500 Body mass index (BMI) [Ratio] 54.05 kg/m2 Clayton Hawley MD Work Phone: [facility] 02-24-2023 00:00-0500 Body weight 151.9 kg Clayton Hawley MD Work Phone: [facility] 02-22-2023 06:35-0500 Body height 167.6 cm Clayton Hawley MD Work Phone: [facility] 10-08-2022 10:10-0400 Body height 172.72 cm Harmony Khan Other [facility] Other 10-08-2022 10:10-0400 Body mass index (BMI) [Ratio] 51.9 kg/m2 Harmony Khan Other [facility] Other 10-08-2022 10:10-0400 Body temperature 97.8 [degF] Harmony Khan Other [facility] Other 10-08-2022 10:10-0400 Body weight 154.86 kg Harmony Khan Other [facility] Other 10-08-2022 10:10-0400 Diastolic blood pressure 85 mm[Hg] Harmony Khan Other [facility] Other 10-08-2022 10:10-0400 Respiratory rate 18 /min Harmony Khan Other [facility] Other 10-08-2022 10:10-0400 SaO2% (BldA) [Mass fraction] 95 % Harmony Khan Other [facility] Other 10-08-2022 10:10-0400 Systolic blood pressure 137 mm[Hg] Harmony Khan Other [facility] Other 09-12-2022 11:15-0400 Body height 172.72 cm Carol Faye Other [facility] Other 09-12-2022 11:15-0400 Body mass index (BMI) [Ratio] 52.15 kg/m2 Carol Faye Other [facility] Other 09-12-2022 11:15-0400 Body temperature 98.1 [degF] Carol Faye Other [facility] Other 09-12-2022 11:15-0400 Body weight 155.58 kg Carol Faye Other [facility] Other 09-12-2022 11:15-0400 Diastolic blood pressure 73 mm[Hg] Carol Faye Other [facility] Other 09-12-2022 11:15-0400 Respiratory rate 18 /min Carol Faye Other [facility] Other 09-12-2022 11:15-0400 SaO2% (BldA) [Mass fraction] 92 % Carol Faye Other [facility] Other 09-12-2022 11:15-0400 Systolic blood pressure 143 mm[Hg] Carol Mckinney Other [facility] Other 07-18-2021 12:20-0400 Body height 172.72 cm Carol Mckinney Other [facility] Other 07-18-2021 12:20-0400 Body mass index (BMI) [Ratio] 51.69 kg/m2 Carol Mckinney Other [facility] Other 07-18-2021 12:20-0400 Body temperature 96.9 [degF] Carol Mckinney Other [facility] Other 07-18-2021 12:20-0400 Body weight 154.22 kg Carol Mckinney Other [facility] Other 07-18-2021 12:20-0400 Respiratory rate 16 /min Carol Mckinney Other [facility] Other 07-18-2021 12:20-0400 SaO2% (BldA) [Mass fraction] 98 % Carol Mckinney Other [employer] Other Encounters Encounter Date Encounter Type Care Provider Facility Start: 03-16-2024 End: 03-16-2024 Bamboo flowsheet Meño Gomez NP Work Phone: [facility] Start: 03-16-2024 End: 03-16-2024 Bamboo flowsheet Meño Gomez NP Work Phone: [facility] Start: 03-16-2024 End: 03-16-2024 Office outpatient visit 25 minutes Meño Gomez NP Work Phone: [facility] Comment on above: Primary osteoarthrit is of right knee (Primary Dx); Primary osteoarthritis of left knee; Chronic pain of right knee; Chronic pain of left knee Start: 03-16-2024 End: 03-16-2024 ambulatory MEÑO GOMEZ Not Available Start: 01-20-2024 End: 01-20-2024 ambulatory [facility] Start: 01-20-2024 End: 01-20-2024 ambulatory [facility] Start: 01-20-2024 End: 01-20-2024 Office outpatient visit 15 minutes [facility] ORNAMENTAL IRONWORKER HELPER-WATER USE INSPECTOR Work Phone: [facility] Comment on above: Vaginal yeast infect ion (Primary Dx); Other atopic dermatitis; Skin irritation Start: 01-19-2024 End: 01-21-2024 Telephone encounter Mac Yañez [facility] Start: 12-21-2023 End: 12-21-2023 Bamboo flowsheet Mac Dawna DO Work Phone: [facility] Start: 12-21-2023 End: 12-21-2023 Bamboo flowsheet Mac Dawna DO Work Phone: [facility] Start: 12-21-2023 End: 12-21-2023 Clinisync Result Encounter Mac Toney DO Work Phone: [facility] External Department Unsolicited Start: 12-21-2023 End: 12-21-2023 Office outpatient visit 25 minutes Meño Gomez SANITARIAN AIDE Work Phone: [facility] Comment on above: Primary osteoarthrit is of left knee (Primary Dx); Left knee pain, unspecified chronicity Start: 12-21-2023 End: 12-21-2023 ambulatory MEÑO GOMEZ Not Available Start: 12-21-2023 End: 12-21-2023 Office outpatient visit 25 minutes Mac Toney DO Work Phone: [facility] Comment on above: Anemia, unspecified type (Primary Dx); Tremor, essential; Restless leg; Obstructive sleep apnea; Primary insomnia Start: 12-21-2023 End: 12-21-2023 ambulatory MAC TONEY Not Available Start: 11-23-2023 End: 11-23-2023 Telephone encounter Clayton Patrick MA [facility] [address] Start: 10-04-2023 End: 10-04-2023 ambulatory TAWANNA ESTRELLA Not Available Start: 09-24-2023 End: 09-24-2023 ambulatory [facility] Start: 09-23-2023 ambulatory Deepak Schaffer acility:[facility] Start: 07-22-2023 End: 07-22-2023 ambulatory [facility] Start: 07-08-2023 End: 07-08-2023 ambulatory [facility] Start: 07-06-2023 End: 07-06-2023 ambulatory [facility] Start: 05-25-2023 End: 05-25-2023 ambulatory MEÑO GOMEZ Not Available Start: 05-18-2023 End: 05-18-2023 Office outpatient visit 15 minutes Brandon Sotelo APRN-WATER USE INSPECTOR Work Phone: [facility] Comment on above: Other eczema (Primar y Dx); Bipolar disorder, current episode mixed, mild ([facility]) Start: 05-18-2023 End: 05-18-2023 ambulatory [facility] Start: 05-18-2023 End: 05-18-2023 ambulatory MEÑO GOMEZ Not Available Start: 04-23-2023 End: 04-23-2023 ambulatory [facility] Work Phone: Start: 04-23-2023 End: 04-23-2023 Patient encounter procedure [facility] Work Phone: Start: 03-24-2023 End: 03-24-2023 ambulatory [facility] Start: 03-16-2023 End: 03-16-2023 ambulatory FERCHO HAM [facility] Ambulatory Start: 03-16-2023 End: 03-16-2023 Postop follow up visit related to original px Fercho Ham MD Work Phone: [facility] Comment on above: 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) Start: 02-22-2023 End: 02-25-2023 Evaluation and management of inpatient Clayton Hawley MD Work Phone: [facility] Comment on above: CSF leak (Primary Dx ); Post-op pain Start: 02-17-2023 End: 02-17-2023 ambulatory [facility] Start: 02-17-2023 End: 02-17-2023 Encounter for other preprocedural examination [facility] Start: 02-02-2023 End: 02-02-2023 ambulatory [facility] Start: 01-18-2023 End: 01-18-2023 Office outpatient new 30 minutes Clayton Hawley MD Work Phone: [facility] Comment on above: CSF leak (Primary Dx ) Start: 01-18-2023 End: 01-19-2023 ambulatory CLAYTON HAWLEY [facility] Start: 01-07-2023 End: 01-07-2023 ambulatory FERCHO [facility] Start: 12-24-2022 End: 12-24-2022 ambulatory FERCHO [facility] Start: 10-08-2022 End: 10-08-2022 ambulatory Harmony Khan Other [facility] Other Start: 10-08-2022 Office outpatient vi sit 25 minutes Harmony Khan [facility] Start: 09-12-2022 Office outpatient vi sit 15 minutes Carol Mckinney [facility] Start: 09-12-2022 End: 09-12-2022 ambulatory DO Harlan Almeida Work Phone: [facility] Other Start: 09-12-2022 End: 09-12-2022 Patient encounter procedure DO Harlan Almeida Work Phone: [facility] Work Phone: Start: 07-28-2022 Registered Recurring DO Harlan Almeida Work Phone: [facility] Start: 12-12-2021 End: 12-13-[address] HARLAN ALMEIDA Facility:[facility] Start: 11-24-2021 End: 11-25-[address] OLAF ANGUIANO Facility:[facility] Start: 07-18-2021 End: 07-18-2021 ambulatory Carol Mckinney Other [facility] Other Start: 07-18-2021 Office outpatient vi sit 15 minutes Carol Mckinney [facility] Start: 01-01-[address] MAC TONEY Facili ty:[facility] Procedures Date Procedure Procedure Detail Performing Clinician Start: 03-16-2024 Arthrocentesis aspir &/inj major jt/bursa w/o us Meño T Luis Miguel SANITARIAN AIDE Work Phone: Start: 03-16-2024 Arthrocentesis aspir &/inj major jt/bursa w/o us Meño T Luis Miguel SANITARIAN AIDE Work Phone: Start: 12-21-2023 Arthrocentesis aspir &/inj major jt/bursa w/o us Meño T Luis Miguel SANITARIAN AIDE Work Phone: Start: 12-21-2023 [facility] avalos DO Work Phone: Start: 09-24-2023 Adult depression scr eening assessment Leoncio Ashutosh ORNAMENTAL IRONWORKER HELPER-WATER USE INSPECTOR Work Phone: Start: 07-08-2023 Follow-up visit Follow-up FERCHO HAM Start: 03-12-2024 Adult depression scr eening assessment Brandon Sotelo ORNAMENTAL IRONWORKER HELPER-WATER USE INSPECTOR Work Phone: Start: 02-25-2023 DISCHARGE PATIENT TREVOR HAWLEY Start: 02-25-2023 Magnesium [Mass/volu me] in Serum [...] [Mass/volume ] in Serum or Plasma CLAYTON BAMBADARLENEDIS Start: 02-24-2023 Glucose quantitative blood xcpt reagent strip Fercho Ham MD Work Phone: Start: 02-23-2023 TRANSFER PATIENT TO NEW UNIT CLAYTON EMEKABAEL Start: 02-23-2023 TRANSFER PATIENT TO NEW UNIT CLAYTON HENDRICKSONBAEL Start: 02-23-2023 CBC W Auto Different ial panel - Blood CLAYTON BAMBAKIDIS Start: 02-23-2023 Magnesium [Mass/volu me] in Serum or Plasma CLAYTON BAMBAKIDIS Start: 02-23-2023 RENAL FUNCTION PANEL NI CHOLAS BAMBAKIDIS Start: 02-23-2023 Renal function panel Anderson Powell MD Work Phone: Start: 02-22-2023 FULL CODE CLAYTON JORDANDIS Start: 02-22-2023 WEIGH PATIENT CLAYTON HAWLEY Start: 02-22-2023 CT HEAD WO IV CONTRAST CLAYTON BAMBAKIDIS Start: 02-22-2023 Ct head/brain w/o co ntrast material Katherine Polanco MD Work Phone: Start: 02-22-2023 ADMIT TO INPATIENT TRAV MARTINEZ JUWAN Start: 02-22-2023 Glucose [Mass/volume ] in Serum or Plasma CLAYTON HAWLEY Start: 02-22-2023 End: 02-22-2023 Rescj/exc les itprl fossa space apex idrl w/rpr Clayton Hawley MD Work Phone: Start: 02-22-2023 Glucose quantitative blood xcpt reagent strip Clayton Hawley MD Work Phone: Start: 02-17-2023 Bacteria identified in Urine by Culture CLAYTON HAWLEY Start: 02-17-2023 Basic metabolic 2000 panel - Serum or Plasma CLAYTONTerrell HAWLEY Start: 02-17-2023 CBC panel - Blood by Automated count CLAYTON HAWLEY Start: 02-17-2023 COAGULATION SCREEN TRAV MARTINEZ JUWAN Start: 02-17-2023 EXTRA URINE GALLAGHER TUBE N LISSA JUWAN Start: 02-17-2023 Hemoglobin A1c/Hemoglobin.total in Blood CLAYTON HAWLEY Start: 02-17-2023 MICROSCOPIC ONLY, URINE CLAYTON JUWAN Start: 02-17-2023 STAPHYLOCOCCUS AUREU S/MRSA COLONIZATION, CULTURE CLAYTON JUWAN Start: 02-17-2023 TYPE AND SCREEN LUCERO Tejada JUWAN Start: 02-17-2023 URINALYSIS WITH REFL EX MICROSCOPIC AND CULTURE CLAYTON HAWLEY Start: 09-12-2022 X-ray of left foot DO D yudy Furlong Work Phone: Start: 12-16-2021 Mammography Brandon benjamino ORNAMENTAL IRONWORKER HELPER-WATER USE INSPECTOR Work Phone: Plan of Treatment Date Care Activity Detail Author Start: 04-25-2030 DTaP,Tdap and Td Vaccines (2 - Tdap) DTaP,Tdap and Td Vaccines (2 - Tdap) [facility] Start: 04-25-2030 DTaP/Tdap/Td Vaccine s (2 - Tdap) DTaP/Tdap/Td Vaccines (2 - Tdap) [facility] Start: 01-19-2025 Adult BMI Screening Adult BMI Screen ing [facility] Start: 01-19-2025 Tobacco Screening Tobacco Screening [facility] Start: 01-18-2025 Screening for malignant neoplasm of colon Colonoscopy [facility] Comment on above: Postponed from 03/29 (Not Indicated) Start: 09-23-2024 Depression Screening Depression Scre ening [facility] Start: 05-17-2024 Adult BMI Follow Up Plan Adult BMI Follow Up Plan [facility] Start: 05-17-2024 Adult BMI Screening Adult BMI Screen ing [facility] Start: 05-17-2024 Depression Screening Depression Scre ening [facility] Start: 05-17-2024 Tobacco Screening Tobacco Screening [facility] Start: 03-16-2024 End: 03-16-2024 Patient encounter procedure 03/16/2024 8:30 AM EST Office Visit [facility] [address] [place] [phone] Meño Gomez, SANITARIAN AIDE [address] [place] [address] Arrived [facility] Comment on above: Arrived Start: 02-17-2024 End: 02-17-2024 Patient encounter procedure 02/17/2024 1:30 PM EST Office Visit [facility] [place] [facility] [address] [place] [phone] Mac Toney DO [address] [place] [address] [facility] Start: 12-28-2023 End: 12-28-2023 Patient encounter procedure 12/28/2023 1:15 PM EDT Office Visit [facility] [address] [place] [id number] Meño Gomez, SANITARIAN AIDE [address] [place], [place] [id number] [facility] Start: 12-27-2023 End: 12-27-2023 Patient encounter procedure 12/27/2023 1:00 PM EDT Office Visit [facility] [place] [facility] [address] [place] [phone] Tawanna Estrella NP [address] [place] [facility] [place] [facility] Start: 12-21-2023 End: 12-20-2024 Ferritin [Mass/volume] in Serum or Plasma Ferrit[facility] Lab Routine Anemia, unspecified type Expected: 12/21/2023 (Approximate), Expires: 12/20/2024 [facility] Work Phone: Comment on above: Expected: 12/21/2023 (Approximate), Expires: 12/20/2024 Start: 12-21-2023 End: 12-21-2023 Patient encounter procedure 12/21/2023 1:15 PM EDT Office Visit [facility] [address] [facility] [address] [place] [phone] Meño Gomez, SANITARIAN AIDE [address] [facility] [place] [address] [facility] Start: 12-21-2023 End: 12-21-2023 Patient encounter procedure 12/21/2023 10:30 AM EDT Office Visit [facility] [address] [place] [address] Mac Toney DO [address] [place], [place] [phone] Arrived [facility] Comment on above: Arrived Start: 12-06-2023 End: 12-06-2023 Patient encounter procedure 12/06/2023 8:20 AM EDT Office Visit [facility] [place] [address] [place] [address] Tawanna Estrella NP [address] [place] [facility] [facility] Start: 11-07-2023 Influenza vaccination Influenza Vacc ine [facility] Start: 08-01-2023 Diabetic foot examination Diabetic Foot Exam [facility] Start: 05-19-2023 Hemoglobin A1c measurement Diabetes: Hemoglobin A1C [facility] Start: 05-06-2023 End: 05-06-2023 Patient encounter procedure 05/06/2023 2:00 PM EST Office Visit [facility] 1 [address] [facility] [address] [address] Fercho Ham MD [address] [facility] 1, [address] [address] [place] [address] Start: 03-11-2023 End: 03-11-2023 Patient encounter procedure 03/11/2023 3:15 PM EST Office Visit [facility] 1 [address] [facility] [address] [address] Fercho Ham MD [address] [facility] 1, [address] [address] [facility] 1 Start: 12-16-2022 Screening for malignant neoplasm of breast Mammogram [facility] Start: 2004 Screening for malignant neoplasm of breast Mammogram [facility] Start: 1985 Screening for malignant neoplasm of cervix [facility] Start: 1983 Urine screening for protein Diabetes: Urine Protein Screening [facility] Start: 1982 Diabetes mellitus screening Diabetes Screening [facility] Start: 1982 Hepatitis C screening Hepatitis C [facility] Start: 1974 Diabetic foot examination Diabetes: Foot Exam [facility] Start: 1974 Glaucoma screening Diabetes: R etinopathy Screening [facility] Start: 1970 Pneumococcal Vaccine : Pediatrics (0 to 5 Years) and At-Risk Patients (6 to 64 Years) (1 - PCV) Pneumococcal Vaccine: Pediatrics (0 to 5 Years) and At-Risk Patients (6 to 64 Years) (1 - PCV) [facility] Start: 1965 MMR Vaccines (1 of 1 - Standard series) MMR Vaccines (1 of 1 - Standard series) [facility] Start: 1964 COVID-19 Vaccine (#1) COVID-19 Vacci ne (#1) [facility] Start: 1964 Glaucoma screening Diabetic Op [facility]thalmology Exam [facility] Start: 1964 HIV screening HIV Screening [facility] Start: 1964 Lipid panel Lipid Panel [facility] Start: 1964 Medicare Annual Wellness Visit Medicare Annual Wellness Visit (AWV) [facility] Start: 1964 Screening for malignant neoplasm of colon [facility] Electrocardiogram, 12-lead PRN ACS symptoms Electrocardiogram, 12-lead PRN ACS symptoms ECG Routine As needed until discontinued starting 02/22/2023 [facility] Work Phone: Comment on above: As needed until disc ontinued starting 02/22/2023 End: 02-22-2023 Incentive spirometry Instruct Incentive spirometry Instruct Respiratory Care Routine Once for 1 Occurrences starting 02/22/2023 until 02/22/2023 [facility] Service Area Work Phone: Comment on above: Once for 1 Occurrenc es starting 02/22/2023 until 02/22/2023 End: 01-19-2025 Vaginitis Panel PCR Vaginitis Panel PCR Microbiology Routine Vaginal yeast infection 1 Occurrences starting 01/20/2024 until 01/19/2025 [facility] Work Phone: Comment on above: 1 Occurrences starti ng 01/20/2024 until 01/19/2025 Immunizations Immunization Date Immunization Notes Care Provider Velvet steinberg 12-11-2022 influenza, injectabl e, quadrivalent, preservative free Clayton Hawley MD Work Phone: [facility] 12-11-2022 influenza virus vaccine, unspecified formulation Leoncio Bingham APRN-WATER USE INSPECTOR Work Phone: [facility] 12-08-2021 influenza virus vaccine, unspecified formulation Brandon Sotelo ORNAMENTAL IRONWORKER HELPER-WATER USE INSPECTOR Work Phone: [facility] 12-08-2021 influenza, injectabl e, quadrivalent, preservative free Clayton Hawley MD Work Phone: [facility] 02-07-2021 zoster vaccine recombinant Clayton Hawley MD Work Phone: [facility] 12-03-2020 influenza, injectabl e, quadrivalent, preservative free Clayton Hawley MD Work Phone: [facility] 12-03-2020 zoster vaccine recombinant Clayton Hawley MD Work Phone: [facility] 04-25-2020 diphtheria, tetanus toxoids and pertussis vaccine Clayton Hawley MD Work Phone: [facility] 01-12-2020 influenza, injectabl e, quadrivalent, preservative free Clayton Hawley MD Work Phone: [facility] 10-08-2018 influenza, injectabl e, quadrivalent, preservative free Clayton Hawley MD Work Phone: [facility] 12-25-2017 influenza, injectabl e, quadrivalent, preservative free Clayton Hawley MD Work Phone: [facility] 03-18-2017 Influenza, injectabl e, Madin Ulysses Canine Kidney, preservative free, quadrivalent Clayton Hawley MD Work Phone: [facility] 07-21-2002 hepatitis B vaccine, adult dosage Clayton Hawley MD Work Phone: [facility] Work Phone: 03-03-2002 hepatitis B vaccine, adult dosage Clayton Hawley MD Work Phone: [facility] Work Phone: 01-13-2002 hepatitis B vaccine, adult dosage Clayton Hawley MD Work Phone: [facility] Payers Date Payer Category Payer Self-pay [id number] 2021 Medicaid [employer] MED[employer]ARE A DVANTAGE [id number] 2021 Medicare [id number]. [id number] 2021 Medicare HMO [employer] MEDICARE [id number] 1964 Unknown [id number] 2.16.840.1.819376.3.579.2.593 1964 Unknown [id number] 2.16.840.1.856684.3.579.2.593 1964 Unknown [id number] 2.16.840.1.302235.3.579.2.593 1964 Unknown [id number] 2.16.840.1.450697.3.579.2.593 1964 Unknown [id number] 2.16.840.1.447665.3.579.2.593 1964 Unknown [id number] 2.16.840.1.490047.3.579.2.1244 1964 Unknown [id number] 2.16.840.1.126634.3.579.2.1247 1964 Unknown [id number] 2.16.840.1.339228.3.579.2.7 1964 Unknown [id number] 2.16.840.1.142890.3.579.2.1247 1964 Unknown [id number] 2.16.840.1.892702.3.579.2.1247 1964 Unknown [id number] 2.16.840.1.358911.3.579.2.5 1964 Unknown [id number] 2.16.840.1.722727.3.579.2.5 1964 Unknown [id number] 2.16.840.1.910519.3.579.2.1245 1964 Unknown [id number] 2.16.840.1.218170.3.579.2.1245 1964 Unknown [id number] 2.16.840.1.624342.3.579.2.1286 1964 Unknown [id number] 2.16.840.1.278375.3.579.2.128 1964 Unknown [id number] 2.16.840.1.221387.3.579.2.1286 1964 Unknown [id number] 2.16.840.1.422032.3.579.2.128 1964 Unknown [id number] 2.16.840.1.405261.3.579.2.128 1964 Unknown [id number] 2.16.840.1.774358.3.579.2.1285 1964 Unknown [id number] 2.16.840.1.120203.3.579.2.1285 1964 Unknown [id number] 2.16.840.1.714705.3.579.2.1285 1964 Unknown [id number] 2.16.840.1.591473.3.579.2.1258 1964 Unknown [id number] 2.16840.1.444097.3.579.2.1258 1964 Unknown [id number] 2.16840.1.695253.3.579.2.1258 1964 Unknown [id number] 2.16840.1.815140.3.579.2.1258 1964 Unknown [id number] 2.16840.1.022531.3.579.2.1258 1964 Unknown [id number] 2.16840.1.392597.3.579.2.1258 1964 Unknown [id number] 2.16840.1.787620.3.579.2.9 1959 Medicare [id number] 2.16840.1.380134.19 1959 Medicare [id number] Medicare Medicare [id number] Unknown [id number] ODJFS [facility] [id number] Unknown [facility] [id number] Unknown [id number] 2.16840.1.764547.3.579.2.531 Social History Date Type Detail Facility Unknown if ever smoked [facility] Other Start: 01-07-2023 End: 12-21-2023 Sex Assigned [facility] Start: 07-18-2020 End: 07-29-2022 Tobacco smoking status NHIS Never smoked tobacco (finding) [facility] [facility] Start: 1965 Sex Assigned At Female F [facility] Start: 07-29-2022 End: 12-24-2022 Tobacco use and exposure Smokeless tobacco non-user [facility] Work Phone: Start: 01-07-2023 End: 12-21-2023 History of Social function [facility] Start: 1965 Sex Assigned At Not on file [facility] Work Phone: Start: 01-08-2023 End: 03-16-2023 Exposure to SARS-CoV-2 (event) Not sure [facility] Start: 02-22-2023 End: 03-16-2023 Alcohol intake Current drinker of alcohol (finding) [facility] Work Phone: How often to you hav e a drink containing alcohol? Never [facility] How many standard drinks containing alcohol do you have on a typical day? Patient does not drink [facility] Work Phone: Start: 02-17-2023 Alcohol Comment rare glass of wine [facility] Work Phone: Start: 05-18-2023 End: 09-24-2023 Alcohol intake Lifetime non-drinker (finding) [employer] Has the [employer], or [employer] threatened to shut off services in your home in past 12Mo No [facility] Are you now , , , , never or living with a partner? [facility] Do you feel stress - tense, restless, nervous, or anxious, or unable to sleep at night because your mind is troubled all the time - these days [OSQ] Rather much [facility] Start: 10-04-2023 End: 12-21-2023 Alcoholic beverage intake Ex-drinker (finding) [facility] Start: 10-11-2014 Sex Female (finding) [facility] Medical Equipment Procedure Code Equipment Code Equipment Origin al Text Equipment Identifier Dates Graft Matrix, Du ral, Duragen Plus 2x2 () - [id number] Start: 02-22-2023 Cross Pin, Axs Self-Tap, 1.5 X 4mm - [id number] Start: 02-22-2023 Plate, 2h 10mm B ar Ultra Low Profile - [id number] Start: 02-22-2023 Clinical Notes 07-18-2021 to 03-16-2024 Meño Gomez, OLEG - 03/16/2024 8:30 AM Teodoro Bingham, ORNAMENTAL IRONWORKER HELPER-WATER USE INSPECTOR - 01/20/2024 11:00 AM ESTTelephone Encounter - Mac Yañez CAGE FIGHTER - 01/19/2024 9:02 AM George Gomez NP - 12/21/2023 1:15 PM EDT Note Date & Type Note Facility 03-16-2024 History of Present illness Narrative Associated Order(s): L Inj/Asp: R knee; L Inj/Asp: L knee Post-Procedure Diagnose(s): Primary osteoarthritis of left knee; Primary osteoarthritis of right knee Images from the original note were not included. Chief Complaint Patient presents with Left Knee - Pain Right Knee - Pain HISTORY OF PRESENT ILLNESS: Ya Womack is an 58 y.o. @ female. RT>LT (EST PT) RT KNEE PAIN 1/2 (1 WK) LAST DEPO INJ 05/25/23 XRAY B/L AP WB EPIC 05/18/23 DEPO INJECTION 05/25/23 LIMPING. PAIN POSTERIOR KNEE. WORSE WITH PROLONGED SITTING. PAIN WITH WALKING AND BENDING KNEE. TAKING TYL. USING PAIN PATCHES. DENIES N/T. +SWELLING, POPPING/GRINDING. +GIVING OUT. WAKES AT HS. HAS ORDERED A KNEE BRACE. HAS LOST ~120LBS, TRYING TO BE MORE ACTIVE BUT HAS BEEN DIFFICULT DUE TO PAIN. (EST PT) LT KNEE - HAD A FALL ONTO LT SIDE 03/11 LAST DEPO INJ 12/21/23 XRAY EPIC 05/18/23 DEPO INJECTION 05/12/22, 05/18/23, 12/21/23 PHYSICAL THERAPY POST OP 2010 PAIN DIFFUSE IN KNEE. TAKING TYL. USING PAIN PATCHES. +SWELLING, POPPING/GRINDING. +GIVING OUT. HX B/L PARTIAL MENISCECTOMY HX GASTRIC SLEEVE 04/13/23, [facility] ALLERGIES: No Known Allergies HOME MEDICATIONS: Current Outpatient Medications Medication Instructions busPIRone (BUSPAR) 10 mg, Oral, 3 times daily DULoxetine (CYMBALTA) 120 mg, Oral, Daily hydrOXYzine pamoate (VISTARIL) 50 mg, Oral, Every 8 hours PRN lamoTRIgine (LAMICTAL XR) 100 mg, Oral, 2 times daily primidone (Mysoline) 50 MG tablet 2 po q hs rOPINIRole (Requip) 1 MG tablet 1 tablet in the morning and 3 tablets qhs PHYSICAL EXAM: Right Knee Exam Tenderness Right knee tenderness location: posterior knee. Range of Motion Extension: 0 Flexion: 110 Tests Varus: negative Valgus: negative Jihan: Anterior - negative Other Erythema: absent Sensation: normal Pulse: present Swelling: mild Effusion: no effusion present Comments: Small bakers cyst Left Knee Exam Tenderness The patient is experiencing tenderness in the medial joint line. Range of Motion Extension: 0 Flexion: 110 Tests Varus: negative Valgus: negative Jihan: Anterior - negative Other Erythema: absent Scars: absent Sensation: normal Pulse: present Swelling: mild Vitals: There is no height or weight on file to calculate BMI. IMAGING: ASSESSMENT: ICD-10-CM 1. Primary osteoarthritis of right knee M17.11 2. Primary osteoarthritis of left knee M17.12 3. Chronic pain of right knee M25.561 G89.29 4. Chronic pain of left knee M25.562 G89.29 L Inj/Asp: R knee on 03/16/2024 9:34 AM Indications: pain Details: 21 G needle, anterolateral approach Medications: 40 mg methylPREDNISolone acetate 40 MG/ML Outcome: tolerated well, no immediate complications Site cleaned with isopropyl alcohol Procedure, treatment alternatives, risks and benefits explained, specific risks discussed. Consent was given by the patient. L Inj/Asp: L knee on 03/16/2024 9:34 AM Indications: pain Details: 21 G needle, anterolateral approach Medications: 40 mg methylPREDNISolone acetate 40 MG/ML Outcome: tolerated well, no immediate complications Site was cleaned with isopropyl alcohol Procedure, treatment alternatives, risks and benefits explained, specific risks discussed. Consent was given by the patient. PLAN: I reviewed exam findings with the patient and discussed treatment options, answered questions. I discussed with the patient the option of an injection for both knees as she had good relief with previous injection. I advised the patient of risks associated with an injection including a reaction to medication, infection, failure to improve and possible worsening. The patient demonstrated understanding. Patient requesting injection. Skin Cleansed with alcohol swab. Utilizing aseptic technique patient given 40mg Depomedrol was injected into both knees. Patient tolerated this well. Neurovasc intact s/p injection. Post injection care instructions discussed. She will follow up if symptoms do not improve. Questions answered in laymen terms at the bedside. The diagnosis, home exercise plan and any ongoing restrictions/ recommendations reviewed. If unable to be reached in office, I recommend evaluation at nearest Emergency Room if any symptoms worsened or new symptoms develop for requiring urgent evaluation. Meño Gomez ORNAMENTAL IRONWORKER HELPER-WATER USE INSPECTOR documented in this encounter [facility] 01-20-2024 History of Present illness Narrative [address] [facility] [id number] Patient: Ya Womack Date of : 1965 Encounter Date: 01/20/2024 History of Present Illness: The patient is a 58 y.o. female, an established patient, and is here for Chief Complaint Patient presents with Vaginitis Yeast infection . HPI Patient here complaining of what she thinks is a vaginal yeast infection that started 2 weekends ago with vaginal discharge, vaginal burning and itching. She used Monistat twice and it did not help with her symptoms. She did get a knee injection with steroids through orthopedics in December. Patient is out of the diabetic range for her last A1c. Patient is also complaining of some burning to under her pannus since after she had weight loss surgery. Patient also has a dry spot to her left buttocks that she has applied a and D ointment to and she can not get cleared up. Problem List Items Addressed This Visit None Visit Diagnoses Vaginal yeast infection - Primary Relevant Orders Vaginitis Panel PCR Other atopic dermatitis Skin irritation Past Medical, Family, and Social History Update: The following portions of the patient's history were reviewed and updated as appropriate: allergies, current medications, past family history, past medical history, past social history, past surgical history and problem list. Past Medical History: Diagnosis Date Diabetes mellitus type 2, controlled ([facility]) Encounter for gastric sleeve procedure 04/13/2023 Dr. Doherty Headache 07/06/2023 History of tremor Past Surgical History: Procedure Laterality Date CHOLECYSTECTOMY COLONOSCOPY 05/02/2014 normal HYSTERECTOMY KNEE SURGERY 3 LEFT KNEE SURGERY AND 1 RIGHT KNEE SURGERY. SLEEVE GASTROPLASTY 04/13/2023 SPINE SURGERY Right 02/22/2023 leaking spinal fluid Current Outpatient Medications Medication Sig Dispense Refill busPIRone (BUSPAR) 10 mg tablet take 1 tablet by mouth twice a day DULoxetine (CYMBALTA) 60 mg capsule Take 2 capsules (120 mg total) by mouth in the morning. hydrOXYzine (VISTARIL) 50 mg capsule hydroxyzine pamoate 50 mg capsule take 1 capsule by mouth three times a day if needed for anxiety lamotrigine (LAMICTAL ORAL) Take 100 mg by mouth in the morning and 100 mg before bedtime. meclizine (ANTIVERT) 25 mg tablet Take 1 tablet (25 mg total) by mouth 3 (three) times a day as needed for dizziness. 30 tablet 0 primidone (MYSOLINE) 50 mg tablet take 1/2 to 1 tablet by mouth every morning and 2 & 1/2 to 3 tablets every evening rOPINIRole (REQUIP) 1 mg tablet Take 1 tablet (1 mg total) by mouth in the morning and 1 tablet (1 mg total) before bedtime. triamcinolone (KENALOG) 0.5 % cream Apply 1 Application topically 3 (three) times a day. 60 g 1 tiZANidine (ZANAFLEX) 4 mg tablet Take 1 tablet (4 mg total) by mouth nightly. (Patient not taking: Reported on 01/20/2024) 30 tablet 0 No current facility-administered medications for this visit. (All medications reviewed and updated by provider since last office visit or hospitalization) Allergies: Patient has no known allergies. Tobacco History: Social History Tobacco Use Smoking Status Never Smokeless Tobacco Never (If patient a smoker, smoking cessation counseling offered) Social History: Social History Substance and Sexual Activity Alcohol Use Never Review of Systems: Review of Systems Genitourinary: Positive for vaginal discharge and vaginal pain (irritation and itching). Negative for dyspareunia, dysuria, flank pain, frequency, hematuria and urgency. Skin: Positive for color change and rash (under pannus and left buttocks). Physical Exam: BP 90/60 (BP Site: Left Arm, BP Postition: Sitting) Pulse 74 Temp 36.7 C (98 F) (Oral) Resp 18 Ht 170.2 cm (5' 7 ) Wt 91.4 kg (201 lb 9.6 oz) SpO2 94% BMI 31.58 kg/m Physical Exam Vitals reviewed. Constitutional: Appearance: Normal appearance. HENT: Head: Normocephalic and atraumatic. Genitourinary: Comments: Patient preferred not to have a pelvic exam done today. Skin: General: Skin is warm. Comments: [place], excoriated skin to area under pannus as marked in diagram above, no rash Dry, peeling, skin colored area to left buttocks as marked on diagram above Neurological: General: No focal deficit present. Mental Status: She is alert and oriented to person, place, and time. Psychiatric: Mood and Affect: Mood normal. Behavior: Behavior normal. Assessment and Plan: Ya was seen today for vaginitis. Diagnoses and all orders for this visit: Vaginal yeast infection - Vaginitis Panel PCR; Future Other atopic dermatitis Skin irritation Follow-up: Will treat vaginal yeast infection with diflucan empirically and await vaginitis swab. Pt should apply vaseline at night to left buttocks at night and barrier cream in am. If area starts to itch/no resolution- she should notify provider. Patient should apply zinc barrier cream to under pannus to prevent skin friction irritation to this area. She should follow up with Dr. Almeida for her routine visit when due. VENUS TANNER APRN-CNP 01/20/24 1238 documented in this encounter [facility] 01-19-2024 Miscellaneous Notes Patient called and stated that she has tried the monastat OTC for yeast infection and it is not clearing up the yeast infection. You don't have no availability to put her in what would you like me to do. I had someone cancel - she can come this am documented in this encounter [facility] 01-19-2024 Telephone encounter Note Patient called and stated that she has tried the monastat OTC for yeast infection and it is not clearing up the yeast infection. You don't have no availability to put her in what would you like me to do. [facility] 01-19-2024 Telephone encounter Note I had someone cancel - she can come this am [facility] 12-21-2023 History of Present illness Narrative Associated Order(s): L Inj/Asp: L knee Post-Procedure Diagnose(s): Primary osteoarthritis of left knee Images from the original note were not included. Chief Complaint Patient presents with Left Knee - Pain HISTORY OF PRESENT ILLNESS: Ya Womack is an 58 y.o. @ female. Last LT knee depo inj 05/18/23. Would like to discuss options. LT knee pain x 05/09/22, Went to get up and twisted, states her knee popped multiple times. States this hasn't happened before. Had gastric sleeve, has been trying to be more active. Pain diffuse in knee. Pretty constant pain. Taking TYL prn. Walks daily. Admits snapping posterior and states it locks up. Denies N/T. Intermittent swelling. Admits giving out. Wakes pt at HS. States she did order some knee sleeves. Prior tx: cortisone injections multiple in the past, narcotic pain medication(s): Ultram, nonsteroidal anti-inflammatory drugs: motrin prn, knee arthroscopy: right mar 2015 Dr. Curran [facility], left knee 2010 Dr. Sherie Gil, no brace, P.T. in 2010 after her surgery, XR, TYL, cane, depo injection 05/12/22, XR NOMS 05/18/23, depo injection 05/18/23 Hx B/L partial menisectomy Hx gastric sleeve 04/13/23, [facility] ALLERGIES: No Known Allergies HOME MEDICATIONS: Current Outpatient Medications Medication Instructions busPIRone (BUSPAR) 10 mg, Oral, 3 times daily DULoxetine (CYMBALTA) 120 mg, Oral, Daily hydrOXYzine pamoate (VISTARIL) 50 mg, Oral, Every 8 hours PRN lamoTRIgine (LAMICTAL XR) 100 mg, Oral, 2 times daily primidone (Mysoline) 50 MG tablet 2 po q hs rOPINIRole (Requip) 1 MG tablet 1 tablet in the morning and 3 tablets qhs PHYSICAL EXAM: Right Knee Exam Tenderness The patient is experiencing tenderness in the medial joint line. Range of Motion Extension: 0 Flexion: 110 Tests Varus: negative Valgus: negative Jihan: Anterior - negative Other Erythema: absent Sensation: normal Pulse: present Swelling: mild Effusion: no effusion present Vitals: There is no height or weight on file to calculate BMI. IMAGING: ASSESSMENT: ICD-10-CM 1. Primary osteoarthritis of left knee M17.12 2. Left knee pain, unspecified chronicity M25.562 L Inj/Asp: L knee on 12/21/2023 3:59 PM Indications: pain Details: 21 G needle, anterolateral approach Medications: 40 mg methylPREDNISolone acetate 40 MG/ML Outcome: tolerated well, no immediate complications Site was cleaned with isopropyl alcohol Procedure, treatment alternatives, risks and benefits explained, specific risks discussed. Consent was given by the patient. PLAN: I reviewed exam findings with the patient and discussed treatment options, answered questions. I discussed with the patient the option of an injection as she had good relief with previous injection. I advised the patient of risks associated with an injection including a reaction to medication, infection, failure to improve and possible worsening. The patient demonstrated understanding. Patient requesting injection. Skin Cleansed with alcohol swab. Utilizing aseptic technique patient given 40mg Depomedrol was injected. Patient tolerated this well. Neurovasc intact s/p injection. Post injection care instructions discussed. She will follow up next week for eval of right knee. Questions answered in laymen terms at the bedside. The diagnosis, home exercise plan and any ongoing restrictions/ recommendations reviewed. If unable to be reached in office, I recommend evaluation at nearest Emergency Room if any symptoms worsened or new symptoms develop for requiring urgent evaluation. Meño Gomez ORNAMENTAL IRONWORKER HELPER-WATER USE INSPECTOR documented in this encounter [facility] 12-21-2023 History of Present illness Narrative Chief Complaint Patient presents with essential tremor Restless Legs Subjective The patient is doing well. She has lost 135 pounds since she had her gastric sleeve. She was unable to have bypass due to scar tissues. She is feeling better over all with every thing. The patient states that she took the mirapex and it did not help her RLS. She would like to change back to requip. She states the RLS is worse at bedtime but can occur during the day. It is also bad when she is riding in a car. She states she has tried heated wraps and rubbing her legs. Tremors are stable. She is no longer diabetic. She does not snore anymore and is not having the apnea spells that she was having. Past Medical History: Diagnosis Date Arthritis of left knee 07/20/2022 Depression (CMS/HCC) Diabetes (CMS/[facility]) HTN (hypertension) ([facility]) Hypersomnia Internal derangement of left knee 07/20/2022 Memory loss Obesity Obstructive sleep apnea Osteoarthritis of knee 07/20/2022 Restless leg syndrome Snoring Tremor Past Surgical History: Procedure Laterality Date BRAIN SURGERY 03/2023 Was leaking spinal fluid SECTION, CLASSIC 1990 and 1992 CHOLECYSTECTOMY GASTRIC BYPASS 04/13/2023 Dr Doherty, [facility] HEEL SPUR EXCISION Right HYSTERECTOMY 1999 total [place] ARTHROSCOPY KNEE DIAGNOSTIC W/WO SYNOVIAL BX SPX Right 2015 Dr. Curran [place] ARTHROSCOPY KNEE DIAGNOSTIC W/WO SYNOVIAL BX SPX Left 2008 TYMPANOSTOMY TUBE PLACEMENT Right 10/06/2022 RMT, Dr. Nye Family History Problem Relation Name Age of Onset Accidental Mother MVA- car accident Social History Tobacco Use Smoking status: Never Smokeless tobacco: Never Substance Use Topics Alcohol use: Not Currently Allergies: Patient has no known allergies. General: No fever or chills HEENT: No nasal congestion or runny nose Pulmonary: No shortness of breath or cough Cardiovascular: No chest pain or palpitations GI: No nausea or vomiting : No dysuria or hematuria Musculoskeletal: No new aches or pains or muscle weakness Infectious: no recurrent fevers or infections Dermatologic: No rashes or skin lesions Neurologic: No new headaches or dizziness Vitals: 12/21/23 1008 BP: 124/86 Pulse: 82 SpO2: 97% Body mass index is 32.83 kg/m . weight: 203 lb 6.4 oz Neurologic exam: General: Normal body habitus, cooperative, pleasant Mental status: Awake, alert to person, place and time. Recent and remote memory are intact. Attention and concentration are normal. Fund of knowledge is appropriate for level of education. HEENT: NC/AT Cranial nerves: CN II: Visual villagran full to confrontation. No loss of vision CN III, IV, : pupils equal round and reactive to light. Extraocular movements intact. No ptosis present. CN V: Facial sensation is normal. CN VII: Full and symmetric facial movement. CN VIII: Hearing is normal CN IX and X: Palate elevates symmetrically. CN XI: Shoulder shrug is normal bilaterally. CN XII: Tongue is midline without atrophy or fasciculation. Speech: Clear and fluent no aphasia or dysarthria Pronator drift: Negative bilateral upper extremity Coordination: Intact, no signs of dysmetria Good finger to nose and rapid alternating movements Sensory: Sensation is intact to light touch and vibratory sensation throughout four extremities. Pinprick intact in all four extremities. Motor: LUE 5/5 RUE 5/5 LLE 5/5 RLE 5/5 Tone: Tremor with antigravity bilateral upper extremity worse on the left than the right, no cogwheeling, bradykinesia or rigidity DTR: Bilateral Biceps 2/4 Bilateral BR 2/4 Bilateral Patellar 1/4 No spasticity Gait: Normal to casual gait Romberg's Negative Assessment/Plan Diagnoses and all orders for this visit: Anemia, unspecified type - Ferritin; Future Tremor, essential - primidone (Mysoline) 50 MG tablet; 2 po q hs Restless leg - rOPINIRole (Requip) 1 MG tablet; 1 tablet in the morning and 3 tablets qhs Obstructive sleep apnea Primary insomnia 58 -year-old female with an essential tremor that the mysoline is controlling it. Mirapex in place of the Requip for her restless leg however that did not work as well. She is back to using the Requip 1 mg 1 in the morning 3 at bedtime. We did discuss augmentation. Overall many of her symptoms have improved since losing 130+ lb after her gastric sleeve surgery. Unfortunately the restless leg has not improved. She does not know if she had a recent ferritin level done. I do not see 1 in our system. With the gastric sleeve and changes I would like to get a ferritin level to be sure she is not anemic and this is exacerbating her restless limb. She will call her weight loss doctor and see if they did it if not then she will get it done. Psych took her off the Abilify and this has also been helpful. She needs monitored for development of extrapyramidal signs. She was having some quivering of her mouth in addition to tremors. Her depression is doing somewhat better. She has been on multiple medications and has a h/o being in the psych unit along with ECT. She continues with close management with psych and they changed medications since last hospitalization. She goes to counseling monthly and sees psychiatrist every 3 months normally. . The patient does have the underlying obstructive sleep apnea and she had refused to get retested. Since she has lost 130+ lb she is not snoring anymore. Once she has plateaued we will consider doing an HST to be sure she no longer has SHASHA. Her insomnia is doing somewhat better . . She had surgery to the right side of her head in March 2023. She had a hole that was repaired. She did have a tube put in and was leaking CSF she reports per testing with ENT. Surgery went smoothly and no further issues. . Review and summary of old records: Ferritin 148, B12 249, Vitamin D 30.7, folate 5.8, Mg 1.8, phosphorus 3.8, CMP bun 20 otherwise unremarkable . . . Plan Check and see if her gastric doctor is done ferritin level if not get it done Continue the Requip 1 mg 1 in the morning 2 at bedtime Continue with the primidone 50 mg 2 at bedtime Be more aggressive with exercise to help with the nighttime sleep Consider HST when she has plateaued with her weight to prove that she no longer has SHASHA continue with psych and staying off Abilify Can get weighted silverware with a large end or foam end as she has not done this The patient was counseled on the need for aggressive diet, exercise, and weight loss. Cannot add anything for insomnia at this point time as it may worsen her sleep apnea The patient was counseled on proper sleep hygiene and adequate hours of sleep. The patient was councelled on the risks of stroke, [place], and sudden with SHASHA. This was discussed with the patient, all questions were answered and they agreed with the treatment plan. The patient is to call with any worsening of the condition or new symptoms. Return to clinic: 2-3 months documented in this encounter [facility] 11-23-2023 Telephone encounter Note Noted. [facility] 11-23-2023 Miscellaneous Notes Noted. Pt was unable to come in this week and drive all the way to [place] from [place]. Has appt scheduled for 12/06/2023 at [facility]. Can she come in this week. I know we have openings. Patient calls stating that pramipexole is not working for RLS. Is unable to sleep, jerking has worsened and tightness have worsened since taking med. States that Requip at least helped, however, this med is making it to where pt can barely make it in a car. documented in this encounter [facility] 11-23-2023 Telephone encounter Note Pt was unable to come in this week and drive all the way to [place] from [place]. Has appt scheduled for 12/06/2023 at [facility]. [facility] 11-23-2023 Telephone encounter Note Can she come in this week. I know we have openings. [facility] 11-23-2023 Telephone encounter Note Patient calls stating that pramipexole is not working for RLS. Is unable to sleep, jerking has worsened and tightness have worsened since taking med. States that Requip at least helped, however, this med is making it to where pt can barely make it in a car. [facility] 05-18-2023 History of Present illness Narrative Images from the original note were not included. [address] [facility] [id number] SUBJECTIVE: Patient ID: Ya Womack is [...] Diagnosis Date Diabetes mellitus type 2, controlled ([facility]) Encounter for gastric sleeve procedure 04/13/2023 Dr. [...] bedtime. Bipolar disorder, current episode mixed, mild ([facility]) -Bipolar disorder is treated psychiatry. Depression: Not [...] Quigley 05/18/23 1415 documented in this encounter [facility] 03-16-2023 History of Present illness Narrative Date of surgery: 02/22/2023 Chief [...] Fercho Ham MD documented in this encounter [facility] Work Phone: 02-25-2023 History of Present illness Narrative Physical Therapy Therapy Communication Note [...] for specific attendings. Please reach out via Xekou. If you are not able to reach a resident in a timely fashion or if any urgent issue, please page. Camryn Barrios MD (Martin Stanton Semaan, Jitendra) - pager [phone] Dayami Velasco MD (Martin Stanton Semaan, Jitendra) Liberty Maldonado MD (Bethanie Chen, Catarino) - pager [phone] For the following providers - ([place], [place], Lara) - please epic [email or web address] the resident writing the note or page the residents above. On weekends of after 5pm, please page [phone]. Associated attestation - Fercho Ham MD - [...] SBA. Precautions: Hearing/Visual Limitations: WFL but slightly [facility] Precautions: Fall precautions Precautions Comment: SBP [...] Bathroom Toilet: Standard Prior Function: Level of [place]: Independent with ADLs and functional transfers, Independent [...] AROM WFL, strength >/= 3+/5) Outcome Measures: [facility] Daily Activity Putting on and taking off [...] (27.7 mL/kg) [P.O.:1040; I.V.:1051.3 (7.1 mL/kg); IV Piggyback:2000] Out: 2195 (14.8 mL/kg) [Urine:1995 (0.4 mL/kg/hr)] Weight: 147.9 kg Relevant Results This patient has a urinary catheter Reason for the urinary catheter remaining today? Urine catheter unnecessary, will be removed today Assessment/Plan Principal Problem: CSF leak Active Problems: Bipolar disorder (CMS/[facility]) Depression Anxiety SHASHA (obstructive sleep apnea) HTN [...] Maida Powell MD Associated attestation - Clayton Hawely MD - 02/23/2023 1:48 PM EST I [...] Prior Function Per Pt/Caregiver Report Level of [place]: Independent with ADLs and functional transfers, Independent [...] alternating marches in standing 5x Outcome Measures: [facility] Basic Mobility Turning from your back to [...] only Sitting: Supervision or set-up only Transfer [id number]-[id number]: Supervision or set-up only Transfer [id number]-qd-Cts: Supervision or set-up only Total Score: 22 [...] while in bed - Dispo: transfer to [place] [id number] D/w Dr. Ham Residents to contact during the week between 6am to 5pm below regarding patient related issues for specific attendings. Please reach out via Gibberin. If you are not able to reach a resident in a timely fashion or if any urgent issue, please page. Camryn Barrios MD (Martin Stanton Semaan, [place]) - pager [phone] Dayami Velasco MD (Martin Stanton Semaan, Jitendra) Liberty Maldonado MD (Bethanie Chen, Catarino) - pager [phone] For the following providers - ([place], [place], Lara) - please [facility] the resident writing the note or page the residents above. On weekends of after 5pm, please page [phone]. Associated attestation - Fercho Ham MD - [...] for CSF leak. Pharmacy reviewed the patient's qvrny-oc-eldulruta medications and allergies for accuracy. The list below reflects the updated SILVER MINER list. Comments regarding how patient may be [...] Below are additional concerns with the patient's SILVER MINER list. -FACUNDO Myers PharmD Transitions of Care Pharmacist [facility] Please reach out via Secure Chat for questions, or if no response call Where I've Been or [employer] documented in this encounter [facility] Work Phone: 02-25-2023 Hospital course Narrative [...] Center 03/11/2023 3:15 PM Fercho Ham MD [id number] [place] Camryn Barrios MD Associated attestation - [...] in the note. documented in this encounter [facility] Work Phone: 02-24-2023 Hospital Discharge instructions Camryn Barrios MD - 02/24/2023 11:28 [...] to the ED. documented in this encounter [facility] Work Phone: 02-23-2023 Plan of care [...] Outcome: Progressing Goal: Promote/optimize nutrition Outcome: Progressing [facility] 02-23-2023 Miscellaneous Notes The patient's goals [...] (R) Operative Note Date: 02/22/2023 OR Location: [facility] [place] Name: Ya Womack, : 1965, Age: 57 y.o., , Sex: female Diagnosis Pre-op Diagnosis * CSF leak [G96.00] Post-op Diagnosis * CSF leak [G96.00] Procedures Craniotomy Middle Fossa with mastodectomy 48154 - NH RESCJ/EXC LES ITPRL FOSSA SPACE APEX IDRL W/RPR Craniotomy Middle Fossa with mastoidectomy 54550 - NH RESCJ/EXC LES ITPRL FOSSA SPACE APEX IDRL W/RPR NH STRTCTC CPTR ASSTD PX CRANIAL INTRADURAL [16503] NH MICROSURG TQS REQ USE OPERATING MICROSCOPE [28558] NH INFRATEMPO MID CRANIAL FOSSA W/WO DCOMPR&/MOBI [09434] NH IONM 1 ON 1 IN OR W/ATTENDANCE EACH 15 MINUTES [12721] Surgeons Panel 1: * Clayton Hawley - Primary Panel 2: * Fercho Ham - Primary Resident/Fellow/Other Home Health Provider: Surgeon(s) and Role: Panel 1: * Katherine [...] 1285 mL Specimen: No specimens collected Staff: Chassis Engineer: Monae Jean RN Relief Chassis Engineer: Amanda Benavides RN Relief Scrub: Katie Jennings [...] MATRIX, DURAL, DURAGEN PLUS 2X2 (1/PK) - [id number] Implanted Neuro Interventional Implant CROSS PIN, AXS SELF-TAP, 1.5 X 4MM - [id number] Implanted Screw PLATE, YY 6H 8MM BAR ULTRA LOW PROFILE - [id number] Implanted Screw PLATE, 2H 10MM BAR ULTRA LOW PROFILE - [id number] Implanted Findings: Indications: Ya Womack is an [...] (R) Operative Note Date: 02/22/2023 OR Location: [facility] [place] Name: Ya Womack, : 1965, Age: 57 y.o., , Sex: female Diagnosis Pre-op Diagnosis * CSF leak [G96.00] Post-op Diagnosis * CSF leak [G96.00] Procedures Craniotomy Middle Fossa with mastodectomy 09676 - NH RESCJ/EXC LES ITPRL FOSSA SPACE APEX IDRL W/RPR Craniotomy Middle Fossa with mastoidectomy 56616 - NH RESCJ/EXC LES ITPRL FOSSA SPACE APEX IDRL W/RPR NH STRTCTC CPTR ASSTD PX CRANIAL INTRADURAL [70394] NH MICROSURG TQS REQ USE OPERATING MICROSCOPE [68016] NH INFRATEMPO MID CRANIAL FOSSA W/WO DCOMPR&/MOBI [19926] NH IONM 1 ON 1 IN OR W/ATTENDANCE EACH 15 MINUTES [04807] Surgeons Panel 1: * Clayton Hawley - Primary Panel 2: * Fercho Ham - Primary Resident/Fellow/Other Home Health Provider: Surgeon(s) and Role: Panel 1: * Katherine [...] 1285 mL Specimen: No specimens collected Staff: Chassis Engineer: Monae Jean RN Relief Chassis Engineer: Amanda Benavides RN Relief Scrub: Katie Jennings [...] MATRIX, DURAL, DURAGEN PLUS 2X2 (/) - [id number] Implanted Neuro Interventional Implant CROSS PIN, AXS SELF-TAP, 1.5 X 4MM - [id number] Implanted Screw PLATE, YY 6H 8MM BAR ULTRA LOW PROFILE - [id number] Implanted Screw PLATE, 2H 10MM BAR ULTRA LOW PROFILE - [id number] Implanted Findings: Indications: Ya Womack is an [...] (R) Operative Note Date: 02/22/2023 OR Location: [facility] [place] Name: Ya Womack, : 1965, Age: [...] for otorrhea, and temporal skull base encephalocele [38128-62] - Middle Fossa Approach for repair of tegmen encephalocele and CSF leak, Duraplasty - Right 2. Secondary repair of dural/cerebrospinal fluid leak [28486-24] - Right 3. Needle electromyography; cranial nerve supplied muscle(s), unilateral - Facial nerve. - Right 4. Microsurgical techniques, requiring use of operating microscope - Right 5. Right ear tube removal with underlay myringoplasty [92695] Surgeons Panel 1: * Clayton Hawley - Primary Panel 2: * Fercho Ham - Primary Resident/Fellow/Other Home Health Provider: Surgeon(s) and Role: Panel 1: * Katherine [...] 1285 mL Specimen: No specimens collected Staff: Chassis Engineer: Monae Jean RN Relief Chassis Engineer: Amanda Benavides RN Relief Scrub: Katie Jennings [...] MATRIX, DURAL, DURAGEN PLUS 2X2 (1/PK) - [id number] Implanted Neuro Interventional Implant CROSS PIN, AXS SELF-TAP, 1.5 X 4MM - [id number] Implanted Screw PLATE, YY 6H 8MM BAR ULTRA LOW PROFILE - [id number] Implanted Screw PLATE, 2H 10MM BAR ULTRA LOW PROFILE - [id number] Implanted Findings: 1. Lumbar drain placed by [...] had reached dura along all edges, a Sigurd 1 dissector was used to carefully elevate [...] note for details. Date: 02/22/2023 OR Location: [facility] [place] Name: Ya Womack, : 1965, Age: 57 y.o., , Sex: female Diagnosis Pre-op Diagnosis * CSF leak [G96.00] Post-op Diagnosis * CSF leak [G96.00] Procedures Craniotomy Middle Fossa with mastodectomy 33914 - NH RESCJ/EXC LES ITPRL FOSSA SPACE APEX IDRL W/RPR Craniotomy Middle Fossa with mastoidectomy 54102 - NH RESCJ/EXC LES ITPRL FOSSA SPACE APEX IDRL W/RPR NH STRTCTC CPTR ASSTD PX CRANIAL INTRADURAL [07291] NH MICROSURG TQS REQ USE OPERATING MICROSCOPE [55597] NH INFRATEMPO MID CRANIAL FOSSA W/WO DCOMPR&/MOBI [39091] NH IONM 1 ON 1 IN OR W/ATTENDANCE EACH 15 MINUTES [68180] Surgeons Panel 1: * Clayton Hawley - Primary Panel 2: * Fercho Ham - Primary Resident/Fellow/Other Home Health Provider: Surgeon(s) and Role: Panel 1: * Ktaherine Polanco MD - Resident - Assisting Panel [...] -215 mL Specimen: No specimens collected Staff: Chassis Engineer: Monae Jean RN Scrub Person: Andrew Strong Findings: good repair of CSF leak Complications: None; patient tolerated the procedure well. Disposition: PACU - hemodynamically stable. Condition: stable Specimens Collected: No specimens collected Attending Attestation: Clayton Hawley documented in this encounter [facility] Work Phone: 02-22-2023 Plan of care note Problem: Skin Goal: Prevent/manage excess moisture Outcome: Progressing Goal: Prevent/minimize sheer/friction injuries Outcome: Progressing Goal: Promote/optimize nutrition Outcome: Progressing The patient's goals for the shift include no pain The clinical goals for the shift include stable neuro exam [facility] 02-22-2023 Plan of care note The patient's goals for the shift include improved pain The clinical goals for the shift include stable neuro exam [facility] Work Phone: 02-22-2023 Hospital Note Formatting of [...] in stable condition with follow up arranged. [facility] Work Phone: 02-22-2023 Note Formatting of this n ote is different from the original. Craniotomy Middle Fossa with mastodectomy (R) Operative Note Date: 02/22/2023 OR Location: [facility] [place] Name: Ya Womack, : 1965, Age: 57 y.o., , Sex: female Diagnosis Pre-op Diagnosis * CSF leak [G96.00] Post-op Diagnosis * CSF leak [G96.00] Procedures Craniotomy Middle Fossa with mastodectomy 47403 - NH RESCJ/EXC LES ITPRL FOSSA SPACE APEX IDRL W/RPR Craniotomy Middle Fossa with mastoidectomy 91824 - NH RESCJ/EXC LES ITPRL FOSSA SPACE APEX IDRL W/RPR NH STRTCTC CPTR ASSTD PX CRANIAL INTRADURAL [48964] NH MICROSURG TQS REQ USE OPERATING MICROSCOPE [80382] NH INFRATEMPO MID CRANIAL FOSSA W/WO DCOMPR&/MOBI [17237] NH IONM 1 ON 1 IN OR W/ATTENDANCE EACH 15 MINUTES [60378] Surgeons Panel 1: * Clayton Hawley - Primary Panel 2: * Fercho Ham - Primary Resident/Fellow/Other Home Health Provider: Surgeon(s) and Role: Panel 1: * Katherine [...] 1285 mL Specimen: No specimens collected Staff: Chassis Engineer: Monae Jean RN Relief Chassis Engineer: Amanda Benavides RN Relief Scrub: Katie Jennings [...] Graft GRAFT MATRIX, DURAL, DURAGEN PLUS 2X2 () - [id number] Implanted Neuro Interventional Implant CROSS PIN, AXS SELF-TAP, 1.5 X 4MM - [id number] Implanted Screw PLATE, YY 6H 8MM BAR ULTRA LOW PROFILE - [id number] Implanted Screw PLATE, 2H 10MM BAR ULTRA LOW PROFILE - [id number] Implanted Findings: Indications: Ya Womack is an [...] Condition: Additional Details: Attending Attestation: Clayton Hawley [facility] Work Phone: 02-22-2023 Note Formatting of this n ote is different from the original. Craniotomy Middle Fossa with mastodectomy (R) Operative Note Date: 02/22/2023 OR Location: [facility] [place] Name: Ya Womack, : 1965, Age: 57 y.o., , Sex: female Diagnosis Pre-op Diagnosis * CSF leak [G96.00] Post-op Diagnosis * CSF leak [G96.00] Procedures Craniotomy Middle Fossa with mastodectomy 76930 - NH RESCJ/EXC LES ITPRL FOSSA SPACE APEX IDRL W/RPR Craniotomy Middle Fossa with mastoidectomy 02507 - NH RESCJ/EXC LES ITPRL FOSSA SPACE APEX IDRL W/RPR NH STRTCTC CPTR ASSTD PX CRANIAL INTRADURAL [73688] NH MICROSURG TQS REQ USE OPERATING MICROSCOPE [17972] NH INFRATEMPO MID CRANIAL FOSSA W/WO DCOMPR&/MOBI [75109] NH IONM 1 ON 1 IN OR W/ATTENDANCE EACH 15 MINUTES [82828] Surgeons Panel 1: * Clayton Hawley - Primary Panel 2: * Fercho Ham - Primary Resident/Fellow/Other Home Health Provider: Surgeon(s) and Role: Panel 1: * Katherine [...] 1285 mL Specimen: No specimens collected Staff: Chassis Engineer: Monae Jean RN Relief Chassis Engineer: Amanda Benavides RN Relief Scrub: Katie Jennings [...] Graft GRAFT MATRIX, DURAL, DURAGEN PLUS 2X2 () - [id number] Implanted Neuro Interventional Implant CROSS PIN, AXS SELF-TAP, 1.5 X 4MM - [id number] Implanted Screw PLATE, YY 6H 8MM BAR ULTRA LOW PROFILE - [id number] Implanted Screw PLATE, 2H 10MM BAR ULTRA LOW PROFILE - [id number] Implanted Findings: Indications: Ya Womack is an [...] Condition: Additional Details: Attending Attestation: Clayton Hawley [facility] Work Phone: 02-22-2023 Note Formatting of this n ote is different from the original. Craniotomy Middle Fossa with mastodectomy (R) Operative Note Date: 02/22/2023 OR Location: [facility] [place] Name: Ya Womack, : 1965, Age: [...] for otorrhea, and temporal skull base encephalocele [34254-40] - Middle Fossa Approach for repair of tegmen encephalocele and CSF leak, Duraplasty - Right 2. Secondary repair of dural/cerebrospinal fluid leak [94703-53] - Right 3. Needle electromyography; cranial nerve supplied muscle(s), unilateral - Facial nerve. - Right 4. Microsurgical techniques, requiring use of operating microscope - Right 5. Right ear tube removal with underlay myringoplasty [75186] Surgeons Panel 1: * Clayton Hawley - Primary Panel 2: * Fercho Ham - Primary Resident/Fellow/Other Home Health Provider: Surgeon(s) and Role: Panel 1: * Katherine Polanco MD - Resident - Assisting Panel 2: * Leslye Villasenor MD - Resident - Assisting Procedure Summary Anesthesia: General ASA: III Anesthesia Staff: Anesthesiologist: Nish Ferguson MD PhD C-AA: SAGAR Rivera Capp; Anwaar Eddir, CAA Estimated Blood Loss: 25mL Intra-op Medications: Medication [...] 1285 mL Specimen: No specimens collected Staff: Chassis Engineer: Monae Jean RN Relief Chassis Engineer: Amanda Benavides RN Relief Scrub: Katie Jennings [...] MATRIX, DURAL, DURAGEN PLUS 2X2 (1/PK) - [id number] Implanted Neuro Interventional Implant CROSS PIN, AXS SELF-TAP, 1.5 X 4MM - [id number] Implanted Screw PLATE, YY 6H 8MM BAR ULTRA LOW PROFILE - [id number] Implanted Screw PLATE, 2H 10MM BAR ULTRA LOW PROFILE - [id number] Implanted Findings: 1. Lumbar drain placed by [...] had reached dura along all edges, a Sigurd 1 dissector was used to carefully elevate [...] At this stage, bactroban, telfa, and a Bullitt dressing were then placed over the incision. [...] entire duration. See resident note for details. [facility] Work Phone: 02-22-2023 Note Formatting of this n ote is different from the original. Date: 02/22/2023 OR Location: [facility] [place] Name: Ya Womack, : 1965, Age: 57 y.o., , Sex: female Diagnosis Pre-op Diagnosis * CSF leak [G96.00] Post-op Diagnosis * CSF leak [G96.00] Procedures Craniotomy Middle Fossa with mastodectomy 22908 - NH RESCJ/EXC LES ITPRL FOSSA SPACE APEX IDRL W/RPR Craniotomy Middle Fossa with mastoidectomy 79025 - NH RESCJ/EXC LES ITPRL FOSSA SPACE APEX IDRL W/RPR NH STRTCTC CPTR ASSTD PX CRANIAL INTRADURAL [28268] NH MICROSURG TQS REQ USE OPERATING MICROSCOPE [65685] NH INFRATEMPO MID CRANIAL FOSSA W/WO DCOMPR&/MOBI [08033] NH IONM 1 ON 1 IN OR W/ATTENDANCE EACH 15 MINUTES [63796] Surgeons Panel 1: * Clayton Hawley - Primary Panel 2: * Fercho Ham - Primary Resident/Fellow/Other Home Health Provider: Surgeon(s) and Role: Panel 1: * Katherine [...] -215 mL Specimen: No specimens collected Staff: Chassis Engineer: Monae Jean RN Scrub Person: Andrew Vides; Anisa Strong Findings: good repair of CSF leak Complications: None; patient tolerated the procedure well. Disposition: PACU - hemodynamically stable. Condition: stable Specimens Collected: No specimens collected Attending Attestation: Clayton Hawley [facility] Work Phone: 02-22-2023 History and physical note [...] mouth once daily., Disp: , Rfl: HYDROcodone-acetaminophen ([place]) 5-325 mg tablet, Take by mouth., Disp: [...] proceed. We will proceed today with surgery. [facility] Work Phone: 02-22-2023 History and physical [...] mouth once daily., Disp: , Rfl: HYDROcodone-acetaminophen ([place]) 5-325 mg tablet, Take by mouth., Disp: [...] 01/07/2023 01/07/23 02/17/23 Fercho Ham MD HYDROcodone-acetaminophen ([place]) 5-325 mg tablet Take by mouth. 02/17/23 [...] stress-induced ischemia-normal dobutamine stress echo. Performed at [facility] in [facility]- found in care everywhere tab. No [...] Straw, Yellow Appearance, Urine Clear Clear Specific [place], Urine 1.019 1.005 - 1.035 pH, Urine [...] No significant growth documented in this encounter [facility] Work Phone: 02-22-2023 Attending History and [...] (CMS/HCC) Echo on 12/25/22 Anxiety Bipolar disorder ([facility]) CSF leak 01/18/2023 Neuro: Clayton puga Depression [...] 01/07/2023 01/07/23 02/17/23 Fercho Ham MD HYDROcodone-acetaminophen ([place]) 5-325 mg tablet Take by mouth. 02/17/23 [...] stress-induced ischemia-normal dobutamine stress echo. Performed at [facility] in [facility]- found in care everywhere tab. No [...] Straw, Yellow Appearance, Urine Clear Clear Specific [place], Urine 1.019 1.005 - 1.035 pH, Urine [...] Ref Range Urine Culture No significant growth [facility] Work Phone: 01-18-2023 History of Present illness Narrative Chief Complaint: NPV - evaluation [...] (CYMBALTA) 120 mg, oral, Daily RT HYDROcodone-acetaminophen ([place]) 5-325 mg tablet oral hydrOXYzine pamoate (VISTARIL) [...] the surgical procedure. documented in this encounter [facility] Work Phone: 10-08-2022 Evaluation note Encounter [...] understanding and is agreeable to treatment plan [facility] Other [id number] Evaluation note* Encounter Date Diagnosis Assessment Notes [...] no improvement in 2 to 3 days [facility] Other 05-13-2022 Evaluation note* Encounter Date Diagnosis [...] fractu re home care material was printed [facility] Other Evaluation noteNo assessment information available [facility] Work Phone: Evaluation note* Diagnosis CSF leak- Primary Other specified disorder of nervous system documented in this encounter [facility] Work Phone: Evaluation note* Diagnosis CSF leak- Primary Other specified disorder of nervous system CSF leak Other specified disorder of nervous system Post-op pain Other acute postoperative pain Bipolar disorder ([facility]) Bipolar disorder, unspecified Depression Depressive disorder, not elsewhere classified Anxiety Anxiety state, unspecified SHASHA (obstructive sleep apnea) Obstructive sleep apnea (adult) (pediatric) HTN (hypertension) Unspecified essential hypertension Hyperlipidemia Other and unspecified hyperlipidemia Obesity Obesity, unspecified documented in this encounter [facility] Work Phone: Evaluation note* Diagnosis 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 documented in this encounter [facility] Work Phone: Evaluation note* Diagnosis Onset Date Resolution Status Gout acute [facility] Work Phone: Evaluation note* Diagnosis Other eczema- Primary Bipolar disorder, current episode mixed, mild ([facility]) documented in this encounter [facility] Diagnosis Anemia, unspecified type- Primary Tremor, essential Essential and other specified forms of tremor Restless leg Restless legs syndrome (RLS) Obstructive sleep apnea Obstructive sleep apnea (adult) (pediatric) Primary insomnia Persistent disorder of initiating or maintaining sleep documented in this encounter [facility] Healthcare[facility]* Diagnosis Primary osteoarthritis of left knee- Primary Left knee pain, unspecified chronicity documented in this encounter [facility] HealthcareEvaluation note* Diagnosis Vaginal yeast infection- Primary Candidiasis of vulva and vagina Other atopic dermatitis Skin irritation Unspecified disorder of skin and subcutaneous tissue [facility] Primary osteoarthritis of right knee- Primary Primary osteoarthritis of left knee Chronic pain of right knee Chronic pain of left knee documented in this encounter [facility] HealthcareHistory general Narrative - Reported* Type Description Date Medical History hypertension Medical History histoplasmosis Surgical History , cholecystectomy, Surgical History [facility] general Narrative - Reported* Type Description Date Medical History hypertension Medical History histoplasmosis Medical History ANXIETY AND DEPRESSION Surgical History , cholecystectomy, Surgical History hysterectomy 1993 [facility] Narrative - Reported* Type Description Date Medical History hypertension Medical History histoplasmosis Medical History ANXIETY AND DEPRESSION Surgical History , cholecystectomy, Surgical History hysterectomy 1993 Surgical History tube in right ear 10[facility]2022 [facility] Instructions* Attachments The following attachments cannot be sent through Care Everywhere. * Eczema (atopic dermatitis) ([place]) [facility]* Attachments The following attachments cannot be sent through Care Everywhere. * Vaginal Yeast Infection Discharge Instructions ([place]) [facility] SystemInstructionsNot on file [facility] Summary Purpose Family History No Family History [...] Code 01/12/2020 12:09 AM 01/12/2020 7:07 PM Date Activated Date Inactivated Comments 01/12/2020 12:09 AM 01/12/2020 7:07 PM Chief Complaint and Reason for Visit Chief Complaint BH Chief Complaint left gout Reason for Visit Gout Additional Source Comments INFORMATION SOURCE (unrecogn ized section and content) DATE CREATED AUTHOR 03/16/2019 [facility] DATE CREATED AUTHOR AUTHOR'S ORGANIZ ATION 05/02/2021 [facility] DATE CREATED AUTHOR AUTHOR'S ORGANIZ ATION 12/16/2021 [facility] DATE CREATED AUTHOR AUTHOR'S ORGANIZ ATION 03/21/2023 [facility] Ambulatory DATE CREATED AUTHOR AUTHOR'S ORGANIZ ATION 07/09/2023 [facility] DATE CREATED AUTHOR AUTHOR'S ORGANIZ ATION 09/27/2023 [facility] DATE CREATED AUTHOR AUTHOR'S ORGANIZ ATION 11/25/2023 [facility] DATE CREATED AUTHOR AUTHOR'S ORGANIZ ATION 01/22/2024 [facility] DATE CREATED AUTHOR AUTHOR'S ORGANIZ ATION 01/23/2024 [facility] DATE CREATED AUTHOR AUTHOR'S ORGANIZ ATION 03/21/2024 [facility] dical Specialists EPIC REASON FOR VISIT (unrecogniz ed section and content) Specialty Diagnoses / Procedures Referred By Jeffry t Referred To Contact Diagnoses CSF leak CSF leak [G96.00] Procedures NH RESCJ/EXC LES ITPRL FOSSA SPACE APEX IDRL W/RPR NH RESCJ/EXC LES ITPRL FOSSA SPACE APEX IDRL W/RPR NH STRTCTC CPTR ASSTD PX CRANIAL INTRADURAL NH MICROSURG TQS REQ USE OPERATING MICROSCOPE NH INFRATEMPO MID CRANIAL FOSSA W/WO DCOMPR&/MOBI NH IONM 1 ON 1 IN OR W/ATTENDANCE EACH 15 MINUTES Craniotomy Middle Fossa with mastodectomy Craniotomy Middle [place] [address] [facility]ly [facility] Department [place] [address] [facility] [address] [place] [address] Referral ID Status Reason Start Date Expiration Date Visits Re quested Visits Authorized [id number] 1 1 Reason Comments Post-op Visit Stitch removal Reason Comments Rash X 2 months Reason Comments essential tremor Restless Legs Reason Comments Pain Reason Comments Vaginitis Yeast infection Reason Comments Pain Care Teams (unrecognized sec tion and content) [...] Provider Active DANA Shook Attending Provider Active Systems Specialist Relationship Specialty Start Date End Date Harlan Almeida DO [address], [facility] [address] PCP - General Family Medicine 12/09/22 Systems Specialist Relationship Specialty Start Date End Date Harlan Almeida DO [address], [facility] [address] PCP - General Family Medicine 12/09/22 Systems Specialist Relationship Specialty Start Date End Date Harlan Almeida DO [address] [place] [address] PCP - General Family Medicine 12/09/22 Systems Specialist Relationship Specialty Start Date End Date Harlan Almeida DO [address] [place] [address] PCP - General Family Medicine 01/11/20 Systems Specialist Relationship Specialty Start Date End Date Harlan Almeida MD [address] [place] [address] PCP - General Family Medicine 07/29/22 Systems Specialist Relationship Specialty Start Date End Date Harlan Almeida MD [address] [place] [address] PCP - General Family Medicine 07/29/22 Systems Specialist Relationship Specialty Start Date End Date Harlan Almeida MD [address] [place] [address] PCP - General Family Medicine 07/29/22 Systems Specialist Relationship Specialty Start Date End Date Harlan Almeida MD [address] [place] [address] PCP - General Family Medicine 07/29/22 Systems Specialist Relationship Specialty Start Date End Date Harlan Almeida DO [address] [place] [address] PCP - General Family Medicine 01/11/20 Systems Specialist Relationship Specialty Start Date End Date Harlan Almeida DO [address] [place] [address] PCP - General Family Medicine 01/11/20 Systems Specialist Relationship Specialty Start Date End Date Harlan Almeida MD [address] [place] [address] PCP - General Family Medicine 07/29/22 Systems Specialist Relationship Specialty Start Date End Date Harlan Almeida MD [address], [place] [address] PCP - General Family Medicine 07/29/22 Systems Specialist Relationship Specialty Start Date End Date Harlan Almeida MD [address] [place] [address] PCP - General Family Medicine 07/29/22 Goals (unrecognized section and content) Goals may [...] Schedule conflict. dose given by previous nurse)0653 (MAY Unhold - Provider: Gilberto Castellon MD)0659 (Not [...] Laverne Shook RN)1200 (Given - Provider: Daily Mortensen RN)1800 (Due) [...] Orders)0653 (MAY Unhold - Provider: Gilberto Castellon MD)2016 (Given - Provider: Laverne Shook RN) 2100 [...] No, Suspected Indication (Select all that apply): EDUCATION AND OUTREACH COORDINATOR/Meningoencephalitis, Type of Therapy: Empiric 0907 (New Bag [...] Shook RN)0646 (Stopped - Provider: Laverne Shook, SOLITARIO)1552 (New Bag - Provider: Daily Mortensen, SOLITARIO)1622 (Stopped - Provider: Daily Mortensen, SOLITARIO)2315 (Due) DULoxetine (Cymbalta) DR capsule 120 mg [...] Giuseppe Thompson LPN)2016 (Given - Provider: Laverne Shook, SOLITARIO) 0844 (Given - Provider: Daily Mortensen RN)2100 (Due) levETIRAcetam (Keppra) tablet 500 mg 500 mg, oral, 2 times daily, First dose on Wed02/22/23 at 1300, For 7 days 0817 (Given - Provider: Neptali Robbins RN)2037 (Given - Provider: Janett Zhou RN) 0542 (MAY Hold - Provider: Automatic Transfer Provider - Reason: Unreviewed Transfer Orders)0653 ([facility] Unhold - Provider: Gilberto Castellon MD)0950 (Given [...] 0448 (New Bag - Provider: Ron Marrero, SOLITARIO)0648 (Stopped - Provider: Ron Marrero RN) primidone (Mysoline) tablet 150 mg 150 mg, oral, Nightly, First dose on Wed02/22/23 at 2100 2038 (Given - Provider: Janett Zhou RN) 0542 (MAY Hold - Provider: Automatic Transfer Provider - Reason: Unreviewed Transfer Orders)0653 (MAR Unhold - Provider: Gilberto Castellon MD)2015 (Given - Provider: Laverne Shook, SOLITARIO) 2099 (Due) primidone (Mysoline) tablet 50 mg [...] Neptali Robbins RN)2037 (Given - Provider: Janett Zhuo RN) 0542 (MAR Hold - Provider: Automatic Transfer Provider - Reason: Unreviewed Transfer Orders)0653 (MAR Unhold - Provider: Gilberto Castellon MD)0952 (Given - Provider: Giuseppe Thompson LPN)2015 (Given - Provider: Laverne Shook RN) 0900 (Not Given - Provider: Daily Mortensen [...] at 2100 2036 (Given - Provider: Janett Zhou, RN) 0542 ([facility] Hold - Provider: Automatic Transfer Provider - Reason: Unreviewed Transfer Orders)0653 ([facility] Unhold - Provider: Gilberto Castellon MD)2015 (Given [...] - Provider: Ron Marrero RN) 0542 ([facility] Hold - Provider: Automatic Transfer Provider - Reason: Unreviewed Transfer Orders)0653 ([facility] Unhold - Provider: Gilberto Castellon MD) hydrOXYzine pamoate (Vistaril) capsule 50 mg 50 mg, oral, 3 times daily PRN, itching, Starting on Wed02/22/23 at 1256 0542 ([facility] Hold - Provider: Automatic Transfer Provider - Reason: Unreviewed Transfer Orders)0653 ([facility] Unhold - Provider: Gilberto Castellon MD) naloxone (Narcan) injection 0.2 mg 0.2 mg, intravenous, Every 5 min PRN, respiratory depression, Starting on Wed02/22/23 at 1256, If respiratory rate is less than 8 breaths/minute or patient is difficult to arouse stop any narcotics and contact physician. Administer slow IV push. Repeat as ordered until patient's respiratory rate is greater than 12 breaths/minute. 0542 ([facility] Hold - Provider: Automatic Transfer Provider - Reason: Unreviewed Transfer Orders)0653 ([facility] Unhold - Provider: Gilberto Castellon MD) ondansetron [...] Push, administer over 3-5 minutes. 0542 ([facility] Hold - Provider: Automatic Transfer Provider - Reason: Unreviewed Transfer Orders)0653 ([facility] Unhold - Provider: Gilberto Castellon MD) ondansetron (Zofran) tablet 4 mg(Linked Group 1) 4 mg, oral, Every 8 hours PRN, nausea/vomiting, first line, Starting on Wed02/22/23 at 1256, 1st Line. Use oral route first, if possible. If inadequate response within 60 minutes, proceed to next-line agent for same PRN reason or contact provider if no further options ordered. 0542 ([facility] Hold - Provider: Automatic Transfer Provider - Reason: Unreviewed Transfer Orders)0653 ([facility] Unhold - Provider: Gilberto Castellon MD) oxyCODONE [...] - Provider: Janett Zhou RN) 0542 ([facility] Hold - Provider: Automatic Transfer Provider - Reason: Unreviewed Transfer Orders)0653 ([facility] Unhold - Provider: Gilberto Castellon MD) oxyCODONE [...] - Provider: Neptali Robbins RN) 0542 ([facility] Hold - Provider: Automatic Transfer Provider - Reason: Unreviewed Transfer Orders)0653 ([facility] Unhold - Provider: Gilberto Castellon MD)0952 (Given - Provider: Giuseppe Thompson LPN)2014 (Given - Provider: Laverne Shook, RN)7415 (Given - Provider: Laverne Shook, RN) 7227 (Given - Provider: Laverne Shook, RN) Linked Groups Order Group 1: ondansetron [...] BE BASED ON THE PRIMARY CLINICAL RECORDS. [facility]. provides no warranty or guarantee of the accuracy or completeness of information in this document.
[2024-03-24 08:25] LABS: Basophils Percent Auto 0.3 % (0.2-2.0); Eosinophils Absolute Auto 0.2 10^3/uL (0.0-0.7); Eosinophils Percent Auto 3.1 % (0.9-7.0); Hemoglobin 12.6 g/dL (12.0-16.0); Immature Granulocytes Abs Auto 0.02 10^3/uL (0.00-0.03); Immature Granulocytes Pct Auto 0.3 % (0.0-0.5); Lymphocytes Absolute Auto 2.4 10^3/uL (1.2-3.8); Lymphocytes Percent Auto 35.5 % (20.5-60.0); Mean Corpuscular HGB Conc 32.3 g/dL (29.9-35.2); Mean Corpuscular Hemoglobin 29.7 pg (26.7-34.0); Mean Platelet Volume 8.7 fL (9.5-13.5); Monocytes Absolute Auto 0.5 10^3/uL (0.3-0.8); Neutrophils Absolute Auto 3.6 10^3/uL (1.4-6.5); Neutrophils Percent Auto 52.8 % (43.0-75.0); Platelet Count 267 10^3/uL (150-450); Red Blood Count 4.24 10^6/uL (4.20-5.40); Red Cell Distribution Width 12.6 % (11.0-15.0); White Blood Count 6.8 10^3/uL (4.0-11.0)
[2024-03-24 09:11] LABS: Alanine Aminotransferase 22 U/L (14-59); Albumin Globulin Ratio 0.9; Albumin Level 3.3 g/dL (3.4-5.0); Alkaline Phosphatase 70 U/L (46-116); Anion Gap 8.5; Aspartate Amino Transferase 17 U/L (15-37); BUN Creatinine Ratio 34.4; Bilirubin Total 0.3 mg/dL (0.2-1.0); Calcium 9.3 mg/dL (8.5-10.1); Carbon Dioxide 35.9 mmol/L (21.0-32.0); Chloride 105 mmol/L (98-107); Estimated GFR (African America >60 (>=60 mL/min/1.73m^2); Estimated GFR (Non-African Ame >60 (>=60 mL/min/1.73m^2); Globulin 3.7 g/dL; Glucose 82 mg/dL (74-106); Magnesium 1.8 mg/dL (1.8-2.4); Phosphorus 3.9 mg/dL (2.6-4.7); Potassium 4.4 mmol/L (3.5-5.1); Sodium 145 mmol/L (136-145)
[2024-03-24 09:15] LABS: Percent Iron Saturation 16.4 %
[2024-03-25 07:08] LABS: Vitamin B12 366 pg/mL (232-1245)
== END 2024-03-24 07:44 | disposition home or self-care (01) ==
LOC: LAB 07:46
PROVIDERS: PCP Family Medicine; Visit Provider Nurse Practitioner Family
DX: Z98.84 Bariatric surgery status (principal); E55.9 Vitamin D deficiency, unspecified; I10 Essential (primary) hypertension; E11.9 Type 2 diabetes mellitus without complications
CPT/HCPCS: 36415; 80053; 82306; 82607; 82728; 82746; 83540; 83550; 83735; 84100; 84425; 85025

== ENCOUNTER 2024-06-19 12:47 | Emergency (ER) | payer MEDICARE, SELFPAY ==
[2024-06-19 12:54] VITALS: PULSE 67; TEMP 36.8; O2SAT 99; BMI 35.0
--- NOTE | 2024-06-19 13:10 | ED.GENADUL1 ---
HPI HPI - General Adult General Chief complaint: Abdominal Pain Stated complaint: ABDOMINAL PAIN Time Seen by Provider: 06/19/24 12:50 Source: patient Mode of arrival: walk-in Limitations: no limitations History of Present Illness HPI narrative: This 59-year-old female states she has been experiencing loose stool since last night and today developed severe upper and mid abdominal pain going through to the back. She reports nausea in the last 24 hours has vomited 4 times. Patient is status postcholecystectomy and has had a gastric sleeve inserted. Related Data Home Medications ?Medication ?Instructions ?Recorded ?Confirmed duloxetine 60 mg capsule,delayed 120 mg PO QDAY 09/28/22 06/19/24 release lamotrigine 100 mg tablet 100 mg PO Q12H 09/28/22 06/19/24 lisinopril 20 1 tab PO DAILY 09/28/22 06/19/24 mg-hydrochlorothiazide 25 mg tablet (Zestoretic) lovastatin 20 mg tablet 20 mg PO QDAY 09/28/22 06/19/24 primidone 50 mg tablet 50 mg PO .as directed 09/28/22 06/19/24 ropinirole 1 mg tablet 1 mg PO BID 09/28/22 06/19/24 aripiprazole 5 mg tablet 5 mg PO DAILY 06/19/24 06/19/24 buspirone 10 mg tablet 10 mg PO Q12H 06/19/24 06/19/24 cariprazine 3 mg capsule (Vraylar) 3 mg PO Q24H 06/19/24 06/19/24 nystatin 100,000 unit/gram topical 1 applic topical DAILY 06/19/24 06/19/24 powder Previous Rx's ?Medication ?Instructions ?Recorded albuterol sulfate 90 mcg/actuation 1 inh inhalation Q6H PRN shortness 10/12/22 aerosol inhaler of breath or wheezing #6.7 grams hydrocodone 5 mg-acetaminophen 325 1 tab PO Q6H PRN pain 3 days #12 06/19/24 mg tablet tabs ondansetron 4 mg disintegrating 4 mg PO Q6H PRN nausea and 06/19/24 tablet vomiting #20 tabs polyethylene glycol 3350 17 17 g PO DAILY PRN constipation 06/19/24 gram/dose oral powder (Miralax) #510 grams Allergies Allergy/AdvReac Type Severity Reaction Status Date / Time No Known Drug Allergies Allergy Verified 01/05/23 19:23 Opioid HPI Opioid Management Most Recent Opioid Data: Last Pain Scale 7 06/19/24 15:52 06/19/24 Last ED Pain Assessment 06/19/24 13:53 Last MAR Pain Assessment 06/19/24 15:52 Review of Systems ROS Status of ROS 10 or more systems reviewed and unremarkable except as noted in history and below [facility] History Dysfunction of right eustachian tube ?H69.91 - Unspecified Eustachian tube disorder, right ear (ICD-10) Hearing loss ?H91.90 - Unspecified hearing loss, unspecified ear (ICD-10) Arthritis ?M19.90 - Unspecified osteoarthritis, unspecified site (ICD-10) OCD (obsessive compulsive disorder) ?F42.9 - Obsessive-compulsive disorder, unspecified (ICD-10) Bipolar disorder ?F31.9 - Bipolar disorder, unspecified (ICD-10) Depression ?F32.A - Depression, unspecified (ICD-10) Anxiety ?F41.9 - Anxiety disorder, unspecified (ICD-10) Dysfunction of both eustachian tubes ?H69.93 - Unspecified Eustachian tube disorder, bilateral (ICD-10) High cholesterol ?E78.00 - Pure hypercholesterolemia, unspecified (ICD-10) Hypertension ?I10 - Essential (primary) hypertension (ICD-10) Lung mass (1982) ?R91.8 - Other nonspecific abnormal finding of lung field (ICD-10) Surgical History History of colonoscopy ?Z98.890 - Other specified postprocedural states (ICD-10) History of lung biopsy (1982) ?Z98.890 - Other specified postprocedural states (ICD-10) History of section ?Z98.891 - History of uterine scar from previous surgery (ICD-10) History of cholecystectomy ?Z90.49 - Acquired absence of other specified parts of digestive tract (ICD-10) History of arthroscopy of knee ?Z98.890 - Other specified postprocedural states (ICD-10) History of foot surgery ?Z98.890 - Other specified postprocedural states (ICD-10) History of hysterectomy ?Z90.710 - Acquired absence of both cervix and uterus (ICD-10) Family History Other Family history of gastric cancer Family history of lung cancer Social History Within the past year, how often did you have a drink containing alcohol: monthly or less Smoking status: Never smoker Little interest or pleasure in doing things: not at all Feeling down, depressed, or hopeless: not at all Exam Narrative Exam Narrative: Patient is afebrile and does not appear toxic. HEENT exam is normal to inspection. The oral cavity is moist. Neck is supple. Lung sounds are clear to auscultation bilaterally with good air entry. Heart has regular rate and rhythm. S1 and S2 are normal. Abdomen is protuberant, soft with minimal upper abdominal tenderness. There is no CVA tenderness. She does not have fluid wave or organomegaly. Lower extremities are warm and dry and she does not have unilateral leg swelling or calf tenderness. Speech and mentation are clear and intact. There is no facial asymmetry. She moves all extremities actively. Skin is warm and dry and there is no pallor or icterus. Constitutional Vital Signs, click to edit/add: Last Vital Signs Temp 98.2 F 06/19/24 12:54 Pulse 68 06/19/24 14:57 Resp 16 06/19/24 14:57 BP 126/72 06/19/24 14:57 Pulse Ox 96 06/19/24 14:57 O2 Del Method Room Air 06/19/24 14:57 Course Vital Signs Vital signs: Vital Signs Temperature 98.2 F 06/19/24 12:54 Pulse Rate 67 06/19/24 12:54 Respiratory Rate 18 06/19/24 12:54 Pulse Oximetry 99 06/19/24 12:54 Temperature 98.2 F 06/19/24 12:54 Pulse Rate 68 06/19/24 14:57 Respiratory Rate 16 06/19/24 14:57 Blood Pressure 126/72 06/19/24 14:57 Pulse Oximetry 96 06/19/24 14:57 Oxygen Delivery Method Room Air 06/19/24 14:57 Medical Decision Making MDM Narrative Medical decision making narrative: Patient presents with upper abdominal pain and some vomiting and diarrhea. CT scan of the abdomen was suspicious for colitis. She had a normal white count of 7.8. Liver enzymes are abnormal compared to baseline and the ALT has gone up to 81 with an AST of 196. Alkaline phosphatase is 120. Lipase is 80 and not felt to be clinically significant. I do not see any evidence of acute surgical abdomen. Liquid stool is reported in the colon. She is advised outpatient follow-up for further workup of her abnormal liver function tests. She is advised a liquid diet for 2 days. She is placed on [place] for pain and prescribed MiraLAX to prevent constipation. Zofran as prescribed for nausea and vomiting. Early follow-up is advised with PCP and she is to return for worsening symptoms. Lab Data Labs: Lab Results 06/19/24 06/19/24 Range/Units 13:22 15:05 WBC 7.8 (4.0-11.0) 10^3/uL RBC 4.81 (4.20-5.40) 10^6/uL Hgb 14.2 (12.0-16.0) g/dL Hct 42.4 (36.0-48.0) % MCV 88.1 (81.0-99.0) fL MCH 29.5 (26.7-34.0) pg MCHC 33.5 (29.9-35.2) g/dL RDW 12.3 (11.0-15.0) % Plt Count 269 (150-450) 10^3/uL MPV 8.6 L (9.5-13.5) fL Neut % (Auto) 78.3 H (43.0-75.0) % Lymph % (Auto) 14.8 L (20.5-60.0) % [place] % (Auto) 4.2 (1.7-12.0) % Eos % (Auto) 2.1 (0.9-7.0) % Baso % (Auto) 0.3 (0.2-2.0) % Neut # (Auto) 6.1 (1.4-6.5) 10^3/uL Lymph # (Auto) 1.2 (1.2-3.8) 10^3/uL [place] # (Auto) 0.3 (0.3-0.8) 10^3/uL Eos # (Auto) 0.2 (0.0-0.7) 10^3/uL Baso # (Auto) 0.0 (0.0-0.1) 10^3/uL Abs Immat Gran (auto) 0.02 (0.00-0.03) 10^3/uL Imm/Tot Granulo (auto) 0.3 (0.0-0.5) % Sodium 137 (136-145) mmol/L Potassium 3.5 (3.5-5.1) mmol/L Chloride 102 (98-107) mmol/L Carbon Dioxide 28.6 (21.0-32.0) mmol/L Anion Gap 9.9 BUN 20.0 H (7.0-18.0) mg/dL Creatinine 0.64 (0.55-1.02) mg/dL Est GFR ( Amer) >60 (>=60 mL/min/1.73m^2) Est GFR (Non-Af Amer) >60 (>=60 mL/min/1.73m^2) BUN/Creatinine Ratio 31.3 Glucose 93 (74-106) mg/dL Lactate 1.6 (0.4-2.0) mmol/L Calcium 9.0 (8.5-10.1) mg/dL Total Bilirubin 1.1 H (0.2-1.0) mg/dL AST 196 H (15-37) U/L ALT 81 H (14-59) U/L Alkaline Phosphatase 120 H (46-116) U/L Total Protein 7.2 (6.4-8.2) g/dL Albumin 3.4 (3.4-5.0) g/dL Globulin 3.8 g/dL Albumin/Globulin Ratio 0.9 Lipase 80.0 H (16.0-77.0) U/L Urine Color Yellow (YELLOW) Urine Clarity Clear (CLEAR) Urine pH 6.0 (5.0-9.0) Ur Specific [place] 1.010 (1.005-1.025) Urine Protein Trace (NEG/TRACE) mg/dL Urine Glucose (UA) Negative (NEGATIVE) mg/dL Urine Ketones Negative (NEGATIVE) mg/dL Urine Occult Blood Negative (NEGATIVE) Urine Nitrite Negative (NEGATIVE) Urine Bilirubin Negative (NEGATIVE) Urine Urobilinogen 1.0 (0.2-1.0) EU/dL Ur Leukocyte Esterase Negative (NEGATIVE) Urine RBC 0-2 (0-2) #/HPF Urine WBC 0-2 A (NONE SEEN) #/HPF Ur Squamous Epith Cells Rare (NONE/RARE) #/LPF Urine Crystals None seen (None Seen) #/HPF Urine Bacteria Trace A (NONE SEEN) #/HPF Urine Casts None seen (NONE SEEN) #/LPF Urine Mucus None seen (NONE SEEN) Ur Culture Indicated? No Discharge Plan Discharge Chief Complaint: Abdominal Pain Clinical Impression: Colitis, Abnormal LFTs (liver function tests) Patient Disposition: Home, Self-Care Time of Disposition Decision: 15:36 Condition: Fair Mode of Transportation: Private Vehicle Prescriptions / Home Meds: New hydrocodone-acetaminophen 5-325 mg tablet 1 tab PO Q6H PRN (Reason: pain) 3 Days Qty: 12 0RF ondansetron 4 mg tablet,disintegrating 4 mg PO Q6H PRN (Reason: nausea and vomiting) Qty: 20 0RF polyethylene glycol 3350 [Miralax] 17 gram/dose powder 17 g PO DAILY PRN (Reason: constipation) Qty: 510 0RF No Action duloxetine 60 mg capsule,delayed release(DR/EC) 120 mg PO QDAY ropinirole 1 mg tablet 1 mg PO BID primidone 50 mg tablet 50 mg PO .as directed lamotrigine 100 mg tablet 100 mg PO Q12H lisinopril-hydrochlorothiazide [Zestoretic] 20-25 mg tablet 1 tab PO DAILY lovastatin 20 mg tablet 20 mg PO QDAY albuterol sulfate 90 mcg/actuation HFA aerosol inhaler 1 inh inhalation Q6H PRN (Reason: shortness of breath or wheezing) Qty: 6.7 0RF buspirone 10 mg tablet 10 mg PO Q12H aripiprazole 5 mg tablet 5 mg PO DAILY Vraylar 3 mg capsule 3 mg PO Q24H nystatin 100,000 unit/gram powder 1 applic TOPICAL DAILY Print Language: Maltese Instructions: Colitis (ED) Additional Instructions: Liquid diet for 2 days. Follow-up with PCP within the week. Return for worsening symptoms. Referrals: DENNIS ALMEIDA [Primary Care Provider] - 1 week Discharge Date/Time: 06/19/24 16:01
[2024-06-19 13:28] LABS: Basophils Percent Auto 0.3 % (0.2-2.0); Eosinophils Absolute Auto 0.2 10^3/uL (0.0-0.7); Eosinophils Percent Auto 2.1 % (0.9-7.0); Hematocrit 42.4 % (36.0-48.0); Hemoglobin 14.2 g/dL (12.0-16.0); Immature Granulocytes Abs Auto 0.02 10^3/uL (0.00-0.03); Immature Granulocytes Pct Auto 0.3 % (0.0-0.5); Lymphocytes Absolute Auto 1.2 10^3/uL (1.2-3.8); Lymphocytes Percent Auto 14.8 % (20.5-60.0); Mean Corpuscular HGB Conc 33.5 g/dL (29.9-35.2); Mean Corpuscular Hemoglobin 29.5 pg (26.7-34.0); Mean Corpuscular Volume 88.1 fL (81.0-99.0); Mean Platelet Volume 8.6 fL (9.5-13.5); Monocytes Absolute Auto 0.3 10^3/uL (0.3-0.8); Monocytes Percent Auto 4.2 % (1.7-12.0); Neutrophils Absolute Auto 6.1 10^3/uL (1.4-6.5); Neutrophils Percent Auto 78.3 % (43.0-75.0); Platelet Count 269 10^3/uL (150-450); Red Blood Count 4.81 10^6/uL (4.20-5.40); Red Cell Distribution Width 12.3 % (11.0-15.0); White Blood Count 7.8 10^3/uL (4.0-11.0)
[2024-06-19] MEDS: 0.9 % SODIUM CHLORIDE 1,000 ML 999 ML IV (13:29)
[2024-06-19] MEDS: HYDROMORPHONE HCL 1 MG/ML CARTRIDGE IVP (13:30)
[2024-06-19] MEDS: ONDANSETRON PF 4 MG/2 ML VIAL IV (13:33)
[2024-06-19 13:45] LABS: Lactate/Lactic Acid 1.6 mmol/L (0.4-2.0)
[2024-06-19 13:52] LABS: Alanine Aminotransferase 81 U/L (14-59); Albumin Globulin Ratio 0.9; Albumin Level 3.4 g/dL (3.4-5.0); Alkaline Phosphatase 120 U/L (46-116); Anion Gap 9.9; Aspartate Amino Transferase 196 U/L (15-37); Bilirubin Total 1.1 mg/dL (0.2-1.0); Carbon Dioxide 28.6 mmol/L (21.0-32.0); Chloride 102 mmol/L (98-107); Estimated GFR (African America >60 (>=60 mL/min/1.73m^2); Estimated GFR (Non-African Ame >60 (>=60 mL/min/1.73m^2); Globulin 3.8 g/dL; Glucose 93 mg/dL (74-106); Potassium 3.5 mmol/L (3.5-5.1); Sodium 137 mmol/L (136-145); Total Protein 7.2 g/dL (6.4-8.2)
[2024-06-19 13:55] LABS: BUN Creatinine Ratio 31.3
[2024-06-19 14:57] VITALS: BP 126/72; PULSE 68; O2SAT 96
[2024-06-19 15:36] LABS: Bilirubin Urine NEGATIVE (NEGATIVE); Blood Urine NEGATIVE (NEGATIVE); Clarity Urine CLEAR (CLEAR); Color Urine YELLOW (YELLOW); Glucose Urine UA NEGATIVE (NEGATIVE); Ketones Urine NEGATIVE (NEGATIVE); Leukocyte Esterase Urine NEGATIVE (NEGATIVE); Nitrite Urine NEGATIVE (NEGATIVE); Protein Urine TRACE mg/dL (NEG/TRACE)
[2024-06-19 15:44] LABS: Bacteria Urine TRACE #/HPF (NONE SEEN); Cast Seen? NONE SEEN #/LPF (NONE SEEN); Crystals Seen? None Seen #/HPF (None Seen); Mucus Urine NONE SEEN (NONE SEEN); RBC Urine 0-2 #/HPF (0-2); Squamous Epithelial Cell Urine RARE #/LPF (NONE/RARE); Urine Culture Indicated NO; WBC Urine 0-2 #/HPF (NONE SEEN)
[2024-06-19] MEDS: HYDROMORPHONE HCL 1 MG/ML CARTRIDGE 0.5 MG IVP (15:52)
== END 2024-06-19 16:01 | disposition home or self-care (01) ==
PROVIDERS: Emergency Provider Emergency Medicine; PCP Family Medicine
DX: K52.9 Noninfective gastroenteritis and colitis, unspecified (principal); R79.89 Other specified abnormal findings of blood chemistry; Z90.49 Acquired absence of other specified parts of digestive tract; Z98.84 Bariatric surgery status; Z90.710 Acquired absence of both cervix and uterus
CPT/HCPCS: 36415; 74177; 80053; 81001; 83605; 83690; 85025; 96361; 96374; 96375; 96376; 99285; J1171; J2405; Q9967

== ENCOUNTER 2024-07-21 12:31 | Emergency (ER) | payer MEDICARE, SELFPAY ==
[2024-07-21 12:41] VITALS: BP 164/87; PULSE 62; TEMP 36.8; O2SAT 97; BMI 35.5
--- NOTE | 2024-07-21 12:51 | ECG_ITS ---
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 Measurements Intervals [place] Rate: 62 P: 52 CA: 186 QRS: -19 QRSD: 80 T: 59 QT: 388 QTc: 394 Interpretive Statements 1100 Sinus rhythm 8102 Low QRS voltage in chest leads 9120 atypical ECG Compared to ECG 09/28/2022 10:36:31 No significant changes Electronically Signed On 07-22-2024 7:42:14 EDT by VIKTOR PETERS M.D.
--- NOTE | 2024-07-21 12:53 | ED_ITS ---
HPI HPI - General Adult General Chief complaint: Dizziness Stated complaint: DIZZINESS Time Seen by Provider: 07/21/24 12:43 Source: patient Mode of arrival: walk-in History of Present Illness HPI narrative: Patient is a 59-year-old female with presenting to the ER today with chief complaint ataxia and mild vertigo. Patient states last evening she started having some mild vertigo. This morning she had some mild ataxia, she did not fall down. She has no headache, chest pain, shortness of breath. Patient had a significant event approximately year ago where she did have brain surgery. Patient stated that she was having some right ear pain, noticing right fluid coming from her right ear, ended up finding out that she had a small spinal fluid leak and ended up having brain surgery to have a brain surgery to have a patch placed for leaking spinal fluid. All systems are negative except as noted/marked. All systems reviewed and otherwise negative. Nurses note and vital signs reviewed and patient is not hypoxic. General: The patient appears well and in no apparent distress. Patient is resting comfortably on cart. Patient is not toxic, lethargic, or listless Skin: Warm, dry, no pallor noted. There is no rash noted. No petechiae, purpura. Head: Normocephalic, atraumatic; patient has no midline or paracervical tenderness to palpation. Patient has full range of motion of cervical spine no difficulty. Eye: Normal conjunctiva, no drainage, EOMI. PERRL. Patient has no nystagmus of vertical, horizontal, or rotary. Bilateral TM shows no erythema, perforation or bulging. Ears, Nose, Mouth, and Throat: oral mucosa is moist. Nares patent. Mouth without vesicles. Cardiovascular: Regular Rate and Rhythm, no murmur, gallop, rub Respiratory: Patient is in no distress, no accessory muscle use, lungs are clear to auscultation, no wheezing, rales or rhonchi Back: non-tender, no CVA tenderness bilaterally to percussion. No CT LS midline pain GI: Soft, nontender; no tenderness to palpation, no masses appreciated. No rebound, guarding, or rigidity noted. No distention Musculoskeletal: Patient has full range of motion of all of the extremities, no motor, sensory, or focal neurological deficits Neurological: A&O x4, normal speech; NIH 0 Psychiatric: Cooperative Related Data Home Medications ?Medication ?Instructions ?Recorded ?Confirmed duloxetine 60 mg capsule,delayed 60 mg PO BID 09/28/22 07/21/24 release lamotrigine 100 mg tablet 100 mg PO Q12H 09/28/2207/06 primidone 50 mg tablet 50 mg PO BID 09/28/22 ropinirole 1 mg tablet 3 mg PO DAILY 09/28/2207/21 buspirone 10 mg tablet 10 mg PO Q12H 06/19/2407/21 cariprazine 3 mg capsule (Vraylar) 3 mg PO Q24H 07/21/24 propranolol 10 mg tablet 10 mg PO BID 07/21/24 Previous Rx's ?Medication ?Instructions ?Recorded meclizine 25 mg chewable tablet 25 mg PO TID PRN dizzi ness or 07/21/24 (Antivert) vertigo #7 tabs Allergies Allergy/AdvReac Type Severity Reaction Status Date / Time No Known Drug Allergies Allergy Verified 07/21/24 12:40 Opioid HPI Opioid Management Most Recent Opioid Data: Last Pain Scale 7 06/19/24, 15:52 PFSH [facility] Medical History Dysfunction of right eustachian tube ?H69.91 - Unspecified Eustachian tube disorder, right ear (ICD-10) Hearing loss ?H91.90 - Unspecified hearing loss, unspecified ear (ICD-10) Arthritis ?M19.90 - Unspecified osteoarthritis, unspecified site (ICD-10) OCD (obsessive compulsive disorder) ?F42.9 - Obsessive-compulsive disorder, unspecified (ICD-10) Bipolar disorder ?F31.9 - Bipolar disorder, unspecified (ICD-10) Depression ?F32.A - Depression, unspecified (ICD-10) Anxiety ?F41.9 - Anxiety disorder, unspecified (ICD-10) Dysfunction of both eustachian tubes ?H69.93 - Unspecified Eustachian tube disorder, bilateral (ICD-10) High cholesterol ?E78.00 - Pure hypercholesterolemia, unspecified (ICD-10) Hypertension ?I10 - Essential (primary) hypertension (ICD-10) Lung mass (1982) ?R91.8 - Other nonspecific abnormal finding of lung field (ICD-10) Surgical History History of colonoscopy ?Z98.890 - Other specified postprocedural states (ICD-10) History of lung biopsy (1982) ?Z98.890 - Other specified postprocedural states (ICD-10) History of section ?Z98.891 - History of uterine scar from previous surgery (ICD-10) History of cholecystectomy ?Z90.49 - Acquired absence of other specified parts of digestive tract (ICD- 10) History of arthroscopy of knee ?Z98.890 - Other specified postprocedural states (ICD-10) History of foot surgery ?Z98.890 - Other specified postprocedural states (ICD-10) History of hysterectomy ?Z90.710 - Acquired absence of both cervix and uterus (ICD-10) Family History Other Family history of gastric cancer Family history of lung cancer Social History Within the past year, how often did you have a drink containing alcohol: monthly or less Smoking status: Never smoker Little interest or pleasure in doing things: not at all Feeling down, depressed, or hopeless: not at all Exam Constitutional Vital Signs, click to edit/add: Last Vital Signs Temp 98.2 F 07/21/24 12:41 Pulse 68 07/21/24 14:40 Resp 20 07/21/24 14:40 BP 134/89 07/21/24 14:40 Pulse Ox 94 L 07/21/24 13:00 O2 Del Method Room Air 07/21/24 12:41 Course Vital Signs Vital signs: Vital Signs Temperature 98.2 F 07/21/24 12:41 Pulse Rate 62 07/21/24 12:41 Respiratory Rate 20 07/21/24 12:41 Blood Pressure 164/87 H 07/21/24 12:41 Pulse Oximetry 97 07/21/24 12:41 Oxygen Delivery Method Room Air 07/21/24 12:41 Temperature 98.2 F 07/21/24 12:41 Pulse Rate 68 07/21/24 14:40 Respiratory Rate 20 07/21/24 14:40 Blood Pressure 134/89 07/21/24 14:40 Pulse Oximetry 94 L 07/21/24 13:00 Oxygen Delivery Method Room Air 07/21/24 12:41 Medical Decision Making MDM Narrative Medical decision making narrative: Patient seen and examined: Patient will have cardiac/stroke workup, patient vertigo and ataxia is mild. Differential diagnosis includes but is not limited to: Vertigo, BPV, intracranial hemorrhage, brain mass, cardiac arrhythmia, electrolyte abnormality, dehydration, Diagnostics and management: Patient will have laboratory studies Relevant laboratory interpretation: No acute lab abnormality Radiological studies: Please see the formal radiological report. Reevaluation: Patient was reassessed at approximately 2:30 PM. Patient stated that when she arrived, she rated her vertigo as severe. However patient was not retching, no intractable nausea or vomiting, she did not seem like she was havin g severe discomfort. However patient rated the vertigo severe when she arrived, now she states is currently mild to moderate. Patient was into be given a dose of IV Valium 2 mg and reassess. Patient told me that she did not want to be admitted to the hospital. Shared decision making: I discussed with the patient the necessary laboratory findings and radiological findings. Social barriers to healthcare: There are no food insecurities, there is no issue with transportation, there are no insurance barriers. Disposition: I discussed with the patient her symptoms. Approximately 15 minutes after I spoke to the patient about giving her IV Valium, patient has spoken to imaging RN and she declined taking IV Valium stating she is better than when I spoke to her to reassess her. Patient would like to be discharged. She currently is not having any vertigo, has stood up and was walking around and does not feel like she has ataxia as well. Patient will be sent home with a prescription for Antivert. Patient does not need to be admitted overnight, nor does she want to be. Education on vertigo has been discussed. We also talked about posterior vertebral basilar stroke and intermittent or persistent vertigo or ataxia. Patient understands if her symptoms worsen to return back to the ER for reevaluation. Patient understands this. No question at discharge. Lab Data Labs: Lab Results 07/21/24 Range/Units 13:12 WBC 8.5 (4.0-11.0) 10^3/uL RBC 4.70 (4.20-5.40) 10^6/uL Hgb 13.8 (12.0-16.0) g/dL Hct 41.5 (36.0-48.0) % MCV 88.3 (81.0-99.0) fL MCH 29.4 (26.7-34.0) pg MCHC 33.3 (29.9-35.2) g/dL RDW 11.9 (11.0-15.0) % Plt Count 255 (150-450) 10^3/uL MPV 8.9 L (9.5-13.5) fL Neut % (Auto) 58.6 (43.0-75.0) % Lymph % (Auto) 29.6 (20.5-60.0) % [place] % (Auto) 9.3 (1.7-12.0) % Eos % (Auto) 2.1 (0.9-7.0) % Baso % (Auto) 0.2 (0.2-2.0) % Neut # (Auto) 5.0 (1.4-6.5) 10^3/uL Lymph # (Auto) 2.5 (1.2-3.8) 10^3/uL [place] # (Auto) 0.8 (0.3-0.8) 10^3/uL Eos # (Auto) 0.2 (0.0-0.7) 10^3/uL Baso # (Auto) 0.0 (0.0-0.1) 10^3/uL Abs Immat Gran (auto) 0.02 (0.00-0.03) 10^3/uL Imm/Tot Granulo (auto) 0.2 (0.0-0.5) % Sodium 141 (136-145) mmol/L Potassium 4.4 (3.5-5.1) mmol/L Chloride 105 (98-107) mmol/L Carbon Dioxide 34.7 H (21.0-32.0) mmol/L Anion Gap 5.7 BUN 20.0 H (7.0-18.0) mg/dL Creatinine 0.71 (0.55-1.02) mg/dL Est GFR ( Amer) >60 (>=60 mL/min/1.73m^2) Est GFR (Non-Af Amer) >60 (>=60 mL/min/1.73m^2) BUN/Creatinine Ratio 28.2 Glucose 79 (74-106) mg/dL Calcium 9.2 (8.5-10.1) mg/dL Total Bilirubin 0.4 (0.2-1.0) mg/dL AST 17 (15-37) U/L ALT 20 (14-59) U/L Alkaline Phosphatase 80 (46-116) U/L Troponin I High Sens 5.8 (4.0-51.3) pg/mL Total Protein 7.3 (6.4-8.2) g/dL Albumin 3.3 L (3.4-5.0) g/dL Globulin 4.0 g/dL Albumin/Globulin Ratio 0.8 ECG Data Attestation: I personally reviewed and interpreted this ECG as follows: (EKG interpretation. Normal sinus rhythm at 62 beats a minute. Normal axis deviation. No acute ST elevation, no acute ectopy. QTc of 394) Discharge Plan Discharge Chief Complaint: Dizziness Clinical Impression: Vertigo, Ataxia Patient Disposition: Home, Self-Care Time of Disposition Decision: 15:00 Condition: Fair Prescriptions / Home Meds: New meclizine [Antivert] 25 mg tablet,chewable 25 mg PO TID PRN (Reason: dizziness or vertigo) Qty: 7 0RF No Action duloxetine 60 mg capsule,delayed release(DR/EC) 60 mg PO BID ropinirole 1 mg tablet 3 mg PO DAILY Rx Instructions: at bedtime primidone 50 mg tablet 50 mg PO BID lamotrigine 100 mg tablet 100 mg PO Q12H propranolol 10 mg tablet 10 mg PO BID buspirone 10 mg tablet 10 mg PO Q12H Vraylar 3 mg capsule 3 mg PO Q24H Print Language: Citizen [place] Instructions: Vertigo (ED), Dizziness (ED) Additional Instructions: Use Antivert if needed at home if vertigo returns. See your physician on Wednesday for further instruction. A copy of your x-ray report and CAT scan have been given to you as well. Increase fluids at home Referrals: DENNIS ALMEIDA [Primary Care Provider, [facility]] - 1 week Discharge Date/Time: 07/21/24 15:10
--- OUTSIDE RECORDS SUMMARY | 2024-07-21 12:55 | XMS_ITS | CCD ---
Author Organization [facility] Care Team Providers Care Slumber Room Attendant Name Role Phone Carol Mckinney Unavailable ANNMARIE, DR OLAF Agudelo Admitting Unavailable ANNMARIE, DR OLAF Agudelo Attending Unavailable FURMAXINENG, DR HARLAN Esposito Primary Care Unavailable ANNMARIE, DR OLAF Agudelo Consulting Unavailable DAWNA, DR WATTS Admitting Unavailable DAWNA, DR WATTS Attending Unavailable FURLONG, DR HARLAN Esposito Primary Care Unavailable ANNMARIE, DR OLAF Agudelo Admitting Unavailable KUNQuynh, DR OLAF Agudelo Attending Unavailable FURLONG, DR HARLAN Esposito Primary Care Unavailable ANNMARIE, DR OLAF Agudelo Consulting Unavailable DARYL, DR HARLAN Esposito Admitting Unavailable [place], DR HARLAN Esposito Attending Unavailable [place], DR HARLAN Esposito Primary Care Unavailable [place], DR HARLAN Esposito Consulting Unavailable MENDENHALL, DR GINI Chacon Consulting Unavailable DO Harlan Almeida Primary Care Provider [phone] MD Xena Longo Attending Provider [phone] DAAN Mckinney Attending Provider Harmony Khan Unavailable Harlan Almeida DO Primary Care Provider FERCHO HAM Attending Unavailable HARLAN ALMEIDA Primary Care Unavailab QUIN Rodriguez Attending Unavailable JENNIFERLOHARLAN CASAS Primary Care Unavailab FERCHO Mantilla Attending Unavailable HARLAN ALMEIDA Primary Care Unavailab FERCHO Mantilla Attending Unavailable ELLE, HARLAN OVERTON Primary Care Unavailab FERCHO Mantilla Attending Unavailable FURLONG HARLAN OVERTON Primary Care Unavailab le CLAYTON HAWLEY Attending Unavailab le FURLONG, HARLAN BROOKLYNN Primary Care Unavailab le CLAYTON HAWLEY Admitting Unavailab le FURLONG, HARLAN OVERTON Primary Care Unavailab le FURLONG, HARLAN OVERTON Referring Unavailab michelle JITENDRA FERCHO Kevin Attending Unavailable FURLONG, HARLAN OVERTON Primary Care Unavailab le FURLONG, HARLAN OVERTON Primary Care Unavailab le Furlong Harlan MOISE Primary Care Provider [phone] BRANDON EARL Attending Unavailable FURLONGHARLAN Referring Unavailable FURLONG, HARLAN Esposito Primary Care Unavailable OLAF ANGUIANO Attending Unavailable FURLONG, HARLAN Esposito Referring Unavailable FURLONG, HARLAN Esposito Primary Care Unavailable FURLONG, HARLAN Esposito Attending Unavailable FURLONG, HARLAN Esposito Referring Unavailable FURLONG, HARLAN Esposito Primary Care Unavailable OLAF ANGUIANO Attending Unavailable FURLONGHARLAN Referring Unavailable FURLONG, HARLAN Esposito Primary Care Unavailable FURLONG, HARLAN Esposito Attending Unavailable FURLONG, HARLAN Esposito Referring Unavailable FURLONG, HARLAN Esposito Primary Care Unavailable LEONCIO BINGHAM Attending Unavailable FURLONG, HARLAN Esposito Referring Unavailable FURLONG, HARLAN Esposito Primary Care Unavailable LEONCIO BINGHAM Referring Unavailable FURLONG, HARLAN Esposito Primary Care Unavailable LEONCIO BINGHAM Referring Unavailable FURLONG, HARLAN Esposito Primary Care Unavailable Furlong Harlan RAMOS Primary Care Provider [phone] Deepak Longo MD Attending Provider [phone] Harlan Almeida MD Primary Care Provider [phone] Deepak Longo Attending Unavailab Deepak Verduzco Admitting Unavailab le JenniferlongHarlan Primary Care Unavailable MEÑO GOMEZ Attending Unavailable MEÑO GOMEZ Referring Unavailable TAWANNA ESTRELLA Attending Unavailable MAC TONEY [...] (1 source) Opioid Agonist HYDROcodone-acet am inophen ([place]) 5-325 mg tablet Take by mouth. 0 Active [id number] 200 actuat albuterol 0.09 mg/actuat metered dose [...] 12 hrs for 10 day(s) Oct, Active ARIPiprazole 5 mg oral tablet (1 source) Atypical Antipsychotic Start: 06-12-2024 take 1 tablet by mouth once daily Aripiprazole 5 mg tablet Active 5 MG PO Daily June 12, 2024 12:00am asenapine 10 mg sublingual tablet (1 source) [...] a day for 7 days Oct, Active busPIRone hydrochloride 10 mg oral tablet (20 sources) Start: 12-17-2022 take 1 tablet by mouth twice daily Buspirone 10 mg tablet Active 10 MG PO Twice daily June 12, 2024 12:00am Start: 06-16-2020 End: 06-12-2024 take 1 tablet by mouth three times daily Buspirone 15 mg Tablet Discontinued 15 MG PO Three times daily 42 July 22, 2020 9:07am June 12, 2024 9:19am cariprazine 3 mg oral capsule (2 sources) Atypical Antipsychotic Start: 06-15-2024 take 1 capsule by mouth once daily Vraylar 3 MG capsule Take 1 capsule by mouth Daily 06/15/2024 Active ceFAZolin 2000 mg injection (1 source) [...] Active docusate sodium 50 mg / sennosides, snf 8.6 mg oral tablet (2 sources) Start: 02-25-2023 End: 03-04-2023 take 1 tablet by mouth once daily sennosides-docusa te sodium (Shirlene-Colace) 8.6-50 mg tablet Indications: CSF leak Take 1 tablet by mouth once daily for 7 days. 7 tablet 0 02/25/2023 03/04/2023 Active Start: 02-22-2023 take 2 tablets by mo [facility] twice daily 2 tablet, oral, 2 times daily, First dos e on 02/22/23 at 1430 Bowel Regimen - for prevention of constipation Hold for loose stools DULoxetine 60 mg delayed release oral capsule (20 sources) Serotonin and Norepinephrine Reuptake Inhibitor Start: 02-22-2023 take 120 mg by mouth once daily 120 mg, oral, Daily RT, First dose on Wed02/22/23 at 1400 Do not crush or chew. Start: 02-03-2020 End: 07-22-2020 take 1 capsule by mouth once daily Duloxetine 60 mg capsule,delayed release(DR/EC) Discontinued 60 MG PO Daily May 03, 2020 1:00am July 22, 2020 9:07am take 2 capsules by m outh once daily DULoxetine (Cymbalta) [address] capsule Take 120 mg by mouth Daily Active take 1 capsule by mo ut every twelve hours DULoxetine HCl 60 MG 1 capsule Orally Twice a day Active 1 ml heparin sodium, porcine 5000 unt/ml injection (1 source) Unfractionated Heparin, Anti-coagulant Start: 02-24-2023 inject 7500 [IU] by subcutaneous injection every eight hours 7,500 Units, subcutaneous, Every 8 hours scheduled, First dose on Wed02/24/23 at 0600 hydroCHLOROthiazide 25 mg / lisinopril 20 mg oral tablet (16 sources) Thiazide Diuretic, Angiotensin Converting Enzyme Inhibitor Start: 06-02-2022 End: 12-21-2023 take 1 tablet by mouth in the morning lisinopril-hydro CHLOROthiazide 20-25 MG tablet Take 1 tablet by mouth in the morning. 06/02/2022 12/21/2023 Discontinued (Med list cleanup) Start: 06-10-2020 End: 06-12-2024 take 1 tablet by mouth once daily Lisinopril-Hydrochlorothiazide 20-25 mg tablet Discontinued 1 TAB PO Daily June 10, 2020 12:00am June 12, 2024 9:30am Start: 02-03-2020 End: 05-03-2020 take 1 tablet by mouth once daily Lisinopril-Hydrochlorothiazide 20-25 mg Tablet Discontinued 1 TAB PO Daily February 03, 2020 1:00am May 03, 2020 8:57pm hydrOXYzine pamoate 25 mg oral capsule (20 sources) Antihistamine Start: 02-22-2023 take 50 mg by mouth three times daily as needed 50 mg, oral, 3 times daily PRN, itching, Starting on Wed02/22/23 at 1256 Start: 02-03-2020 End: 01-25-2021 take 1 capsule by mouth three times daily Hydroxyzine Pamoate 25 mg Capsule Discontinued 25 MG PO Three times daily February 08, 2020 1:00am April 01, 2020 7:16am take 1 capsule by [facility] every eight hours as needed hydrOXYzine pamoate (Vistaril) 50 MG capsule Take 50 mg by mouth every 8 (eight) hours if needed Active take 1 capsule by [facility] three times daily as needed hydrOXYzine pamoate (Vistaril) 50 mg capsule Take 1 capsule (50 mg) by mouth 3 times a day as needed for itching. 0 Active take 1 capsule by [facility] every eight hours Vistaril 25 MG 1 capsule as needed Orally every 8 hrs Active lamoTRIgine 100 mg oral tablet (20 sources) Mood Stabilizer, Anti-epileptic Agent Start: 06-12-2024 take 1 tablet by mouth twice daily Lamotrigine 100 mg tablet Active 100 MG PO Twice daily June 12, 2024 12:00am Start: 12-22-2022 take 1 tablet by [facility] twice daily lamoTRIgine (LaMICtal) 100 mg tablet Take 1 tablet (100 mg) by mouth 2 times a day. 0 12/22/2022 Active Start: 07-22-2020 End: 06-12-2024 take 2 tablets by mouth twice daily Lamotrigine 25 mg Tablet Discontinued 50 MG PO Twice daily July 22, 2020 12:00am June 12, 2024 9:18am Start: 07-22-2020 take 50 mg by mouth twice thanh y Lamotrigine Active 50 MG PO Twice daily July 21, 2020 11:00pm Start: 06-20-2020 End: 07-22-2020 take 1 tablet by mouth twice daily Lamotrigine (Lamictal) 25 mg Tablet Discontinued 25 MG PO Twice daily June 20, 2020 12:00am July 22, 2020 9:08am Start: 04-05-2020 End: 05-20-2020 take 1 tablet by mouth once daily Lamotrigine (Lamictal) 200 mg tablet Discontinued 200 MG PO Daily April 05, 2020 7:20am May 20, 2020 10:51am Start: 02-03-2020 End: 04-05-2020 take 1 tablet by mouth twice daily Lamotrigine 200 mg tablet Discontinued 200 MG PO Twice daily 60 February 08, 2020 1:00am April 05, 2020 7:20am take 1 tablet by elvira th every [...] Give both components for Zestoretic/Priniz taryn product osmotic 24 hr metFORMIN hydrochloride 500 mg extended release oral tablet (3 sources) Biguanide take 1 tablet by mouth once daily at mealtime metFORMIN, OSM, (Fortamet) 500 mg 24 hr tablet Take 1 tablet (500 mg) by mouth once daily in the evening. Take with meals. Do not crush, chew, or split. 0 Active Naloxone (1 source) Opioid Antagonist Start: 02-22-2023 0.2 mg, intravenous, Every 5 min PRN, respiratory depression, Starting on Wed02/22/23 at 1256 If respiratory rate is less than 8 breaths/minute or patient is difficult to arouse stop any narcotics and contact physician. Administer slow IV push. Repeat as ordered until patient's respiratory rate is greater than 12 breaths/minute. nystatin 100 unt/mg topical powder (1 source) Polyene Antifungal Start: 06-12-2024 Nystatin 100,000 unit/gram powder Active TOPICAL June 12, 2024 12:00am Ondansetron (1 source) Serotonin-3 Receptor Antagonist Start: [...] Start: 02-22-2023 take 1 tablet by elvira every four hours as needed 5 mg, [...] 2 11/04/2023 12/21/2023 Discontinued (Med list cleanup) primidone 50 mg oral tablet (20 sources) Anti-epileptic Agent Start: 06-12-2024 take 1 tablet by mouth once daily at bedtime Primidone 50 mg tablet Active 50 MG PO Daily at bedtime June 12, 2024 12:00am Start: 12-21-2023 take 2 tablets by mo [facility] once at bedtime primidone (Mysoline) 50 MG tablet Indications: Tremor, essential 2 po q hs 60 tablet 2 12/21/2023 Active Start: 09-13-2023 End: 12-21-2023 take 0.5-1 tablets by mouth once daily in the morning, then take 2-0.5 tablets by mouth once daily in the evening primidone (Mysoline) 50 MG tablet Indications: Tremor, essential take 1/2 to 1 tablets by mouth every morning and 2 AND 1/2 to 3 tablets every evening 120 tablet 09/13/2023 12/21/2023 Discontinued (Reorder) Start: 02-22-2023 take 150 mg by mouth once thanh y 150 mg, oral, Nightly, First dose on Wed02/22/23 at 2100 Start: 02-22-2023 50 mg (50 mg/d ay), oral, Every morning, First dose on Wed02/22/23 at 1430 Start: 02-03-2020 End: 05-03-2020 take 1 tablet by mouth at bedtime Primidone (Mysoline) 50 mg Tablet Discontinued 25 MG PO Bedtime February 03, 2020 1:00am May 03, 2020 8:59pm Start: 02-03-2020 End: 05-03-2020 take 1 tablet by mouth at bedtime Primidone (Mysoline) 50 mg Tablet Discontinued 25 MG PO Bedtime February 03, 2020 12:00am May 03, 2020 7:59pm rOPINIRole 1 mg oral tablet (20 sources) Nonergot Dopamine Agonist Start: 12-21-2023 rOPINIRole (Requip) 1 MG tablet Indications: Restless leg 1 tablet in the morning and 3 tablets qhs 120 tablet 2 12/21/2023 Active Start: 02-22-2023 take 1 tablet by elvira th every twelve hours 1 mg, oral, Every 12 hours, First dose on Wed02/22/23 at 1400 Start: 06-16-2020 End: 07-22-2020 take 1 tablet by mouth twice daily Ropinirole 1 mg Tablet Active 1 MG PO Twice daily July 22, 2020 9:07am Start: 05-03-2020 End: 06-28-2020 take 1 tablet by mouth twice daily Ropinirole 0.5 mg tablet Discontinued 0.5 MG PO Twice daily May 03, 2020 1:00am June 28, 2020 3:09pm End: 12-21-2023 take 1 tablet by mouth once daily in the morning rOPINIRole (Requip) 1 MG tablet Take 1 mg by mouth in the morning and 1 mg before bedtime. 1 tablet in the morning and 3 tablets qhs. 12/21/2023 Discontinued (Reorder) traMADol hydrochloride 50 mg oral tablet (1 [...] days. 12 tablet 0 02/25/2023 02/28/2023 Active traZODone hydrochloride 50 mg oral tablet (20 sources) Serotonin Reuptake Inhibitor Start: 02-22-2023 take 100 mg by mouth once daily 100 mg, oral, Nightly, First dose on Wed02/22/23 at 2100 Start: 05-20-2020 End: 06-12-2024 take 1 tablet by mouth at bedtime Trazodone 100 mg Tablet Discontinued 100 MG PO Bedtime July 22, 2020 9:07am June 12, 2024 9:30am Start: 02-03-2020 End: 05-20-2020 Trazodone 150 mg tablet Disc ontinued 75 MG PO Bedtime as needed for Insomnia May 03, 2020 4:40pm May 20, 2020 10:51am Start: 02-03-2020 End: 05-20-2020 take 75 mg by mouth at bedtime Trazodone Discontinued 75 MG PO Bedtime May 03, 2020 3:40pm May 20, 2020 9:51am Completed/Discontinued Medications Medication Drug Class(es) Dates Sig (Normalized) Sig (Original) amLODIPine 10 mg oral tablet (14 sources) Dihydropyridine Calcium Channel Grey Start: 02-03-2020 End: 06-12-2024 take 1 tablet by mouth once daily Amlodipine 10 mg Tablet Discontinued 10 MG PO Daily February 03, 2020 1:00am June 12, 2024 9:29am Asenapine Maleate (Saphris) 10 mg Tablet, Sublingual (3 sources) Start: 05-20-2020 End: 07-02-2020 take 1 [...] 2020 1:04pm brexpiprazole 2 mg oral tablet (3 sources) Atypical Antipsychotic Start: 02-03-2020 End: 02-08-2020 take 1 tablet by mouth once daily Brexpiprazole (Rexulti) 2 mg Tablet Discontinued 2 MG PO Daily February 03, 2020 1:00am February 08, 2020 10:43am 24 hr buPROPion hydrochloride 300 mg extended release oral tablet (15 sources) Aminoketone Start: 05-03-2020 End: 05-20-2020 take 1 tablet by mouth once daily Bupropion Hcl 300 mg tablet extended release 24 hr Discontinued 300 MG PO Daily May 03, 2020 1:00am May 20, 2020 10:51am Start: 04-01-2020 End: 05-03-2020 Bupropion Hcl (Wellbutrin Xl ) 150 mg tablet extended release 24 hr Discontinued 300 MG PO Daily April 01, 2020 7:15am May 03, 2020 8:51pm Start: 02-08-2020 End: 04-01-2020 Bupropion Hcl 150 mg Tablet Extended Release 24 Hr Discontinued 450 MG PO Daily February 08, 2020 1:00am April 01, 2020 7:15am Start: 02-08-2020 End: 04-01-2020 take 450 mg by mouth once daily Bupropion Hcl Disconti nued 450 MG PO Daily 90 February 08, 2020 12:00am April 01, 2020 6:15am Start: 02-03-2020 End: 02-08-2020 take 1 tablet by mouth once daily Bupropion Hcl (Wellbutrin Xl) 300 mg Tablet Extended Release 24 Hr Discontinued 300 MG PO Daily February 03, 2020 1:00am February 08, 2020 10:43am cephalexin 500 mg oral capsule (6 sources) Cephalosporin Antibacterial Start: 05-08-2020 End: 06-12-2020 take 1 capsule by mouth every twelve hours Cephalexin 500 mg Capsule Discontinued 500 MG PO Every 12 hours May 20, 2020 8:54am June 12, 2020 12:07pm ergocalciferol 1.25 mg oral capsule (9 sources) Provitamin D2 Compound Start: 07-22-2020 End: 06-12-2024 take 1 capsule by mouth every week Ergocalciferol (Vitamin D2) 1,250 mcg (50,000 unit) Capsule Discontinued 1250 MCG PO Q7D@0900 6 July 22, 2020 12:00am June 12, 2024 9:30am Start: 05-20-2020 End: 06-28-2020 take 1 capsule by mouth every week Ergocalciferol (Vitamin D2) (Vitamin D2) 1,250 mcg (50,000 unit) capsule Discontinued 1250 MCG PO every week June 20, 2020 12:00am June 28, 2020 12:33pm 1 ml HYDROmorphone hydrochloride 1 mg/ml cartridge [...] beta-Adrenergic Grey Start: 02-22-2023 End: 02-24-2023 labetaloL (Normodyne,Trandate) injection 10 mg lithium carbonate 300 mg extended release oral tablet (6 sources) Start: 02-08-2020 End: 04-01-2020 take 2 tablets by mouth at bedtime [place] Carbonate 300 mg Tablet Extended Release Discontinued 600 MG PO Bedtime 60 February 08, 2020 1:00am April 01, 2020 7:16am Start: 02-08-2020 End: 04-01-2020 take 600 mg by mouth at bedtime [place] Carbonate Disc ontinued 600 MG PO Bedtime 60 February 08, 2020 12:00am April 01, 2020 6:16am Start: 02-03-2020 End: 02-08-2020 take 1 capsule by mouth twice daily [place] Carbonate 300 mg capsule Discontinued 300 MG PO Twice daily February 03, 2020 1:00am February 08, 2020 10:43am LORazepam 0.5 mg oral tablet (3 sources) Benzodiazepine Start: 06-10-2020 End: 06-28-2020 take 1 tablet by mouth twice daily as needed for anxiety Lorazepam (Ativan) 0.5 mg tablet Discontinued 0.5 MG PO Twice daily as needed for anxiety 6 June 10, 2020 12:00am June 28, 2020 12:34pm lovastatin 20 mg oral tablet (16 sources) HMG-CoA Reductase Inhibitor Start: 06-10-2020 End: 06-12-2024 take 1 tablet by mouth once daily Lovastatin 20 mg tablet Discontinued 20 MG PO Daily June 10, 2020 12:00am June 12, 2024 9:30am Start: 02-03-2020 End: 05-03-2020 take 1 tablet by mouth once daily Lovastatin 20 mg Tablet Discontinued 20 MG PO Daily February 03, 2020 1:00am May 03, 2020 9:00pm End: 12-21-2023 take 1 tablet by mouth at bedtime lovastatin (Mevacor) 40 MG tablet Take 40 mg by mouth at bedtime. 12/21/2023 Discontinued (Med list cleanup) 50 ml magnesium sulfate 40 mg/ml injection (1 source) Start: 02-23-2023 End: 02-23-2023 magnesium sulfate IV 2 g 1 ml methylPREDNISolone acetate 40 mg/ml injection (20 sources) Corticosteroid Start: 07-06-2024 End: 07-06-2024 methylPREDNISolone acetate (DEPO-Medrol) injection 40 mg Start: 07-06-2024 End: 07-06-2024 40 mg, Intra-articular, Once PRN Procedure, Starting on Wed07/06/24 at 1407, For 1 dose Start: 06-12-2024 take 1 tablet by mouth once Me thylprednisolone (Medrol (Reilly)) 4 mg tablets,dose pack Active 0 PO per package directions June 12, 2024 12:00am PO PER PKG DIR Start: 03-16-2024 End: 03-16-2024 methylPREDNISolone acetate (DEPO-Medrol) injection 40 mg Start: 03-16-2024 End: 03-16-2024 40 mg, Intra-articular, Once PRN Procedure, Starting on Wed03/16/24 at 0934, For 1 dose Start: 12-21-2023 End: 12-21-2023 methylPREDNISolone acetate (DEPO-Medrol) injection 40 mg Start: 12-21-2023 End: 12-21-2023 40 mg, Intra-articular, Once PRN Procedure, Starting on Wed12/21/23 at 1559, For 1 dose Start: 10-08-2022 methylPREDNISo lone 4 MG as directed Orally for daily dose take half with breakfast, half with dinner for 6 days Oct, Active 24 hr paliperidone 3 mg extended release oral tablet (3 sources) Atypical Antipsychotic Start: 07-02-2020 End: 07-22-2020 take 1 tablet by mouth once daily at bedtime Paliperidone 3 mg Tablet Extended Release 24hr Discontinued 3 MG PO Daily at bedtime July 02, 2020 12:00am July 22, 2020 9:08am predniSONE 20 mg oral tablet (4 sources) Start: 04-23-2023 End: 06-12-2024 take 1 tablet by mouth twice daily Prednisone 20 mg tablet Discontinued 20 MG PO Twice daily 12 10April 23, 2023 1:00am June 12, 2024 9:18am Start: 09-12-2022 take 1 tablet by elvira every twelve hours predniSONE 20 MG 1 tablet Orally bid for 5 days Sep, Not-Taking 1000 ml sodium chloride 9 mg/ml injection (3 sources) Start: 02-22-2023 End: 02-23-2023 sodium chloride 0.9 % bolus 1,000 mL 24 hr divalproex sodium 500 mg extended release oral tablet (3 sources) Mood Stabilizer, Anti-epileptic Agent Start: 07-22-2020 End: 06-12-2024 take 1 tablet by mouth every twelve hours Divalproex 500 mg Tablet Extended Release 24 Hr Discontinued 500 MG PO Every 12 hours July 22, 2020 12:00am June 12, 2024 9:31am Problems Active Problems Problem Classification Problem Date Documented Date Episodic/Chronic Anxiety disorders (4 sources) Anxiety; Translations: [Anxiety disorder, unspecified] Onset: 02-22-2023 02-22-2023 Chronic Deficiency and other anemia (2 sources) Anemia; Translations: [Anemia, unspecified] 12-21-2023 Episodic Diabetes mellitus without complication (7 sources) Type 2 diabetes mellitus without complications; Translations: [TYPE 2 DM WITHOUT COMPLICATIONS] Onset: 11-24-2021 Chronic Disorders of lipid metabolism (4 sources) Hyperlipidemia, unspecified; Translations: [Hyperlipidemia] Onset: 11-25-2021 02-22-2023 Chronic Essential hypertension (20 sources) Hypertensive disorder; Translations: [Essential (primary) hypertension] Onset: 12-03-2021 05-06-2020 Chronic Gout and other crystal arthropathies (4 sources) Gout, unspecified; Translations: [Gout] Chronic Headache; including migraine (3 sources) Headache; Translations: [Headache] 02-04-2020 Episodic Inflammatory diseases of female pelvic organs (1 source) Vaginitis Onset: 01-20-2024 Episodic Malaise and fatigue (4 sources) Chronic fatigue, unspecified; Translations: [CHRONIC FATIGUE UNSPECIFIED] Onset: 12-12-2021 Chronic Miscellaneous mental health disorders (15 sources) Primary insomnia; Translations: [Primary insomnia] Onset: 10-02-2023 10-02-2023 Chronic Mood disorders (20 sources) Severe depressed bipolar I disorder without psychotic features; Translations: [Bipolar disorder, current episode depressed, severe, without psychotic features] Onset: 02-22-2023 06-28-2020 Chronic Mycoses (2 sources) Superficial mycosis, unspecified; Translations: [Histoplasmosis] Onset: 07-06-2023 06-12-2024 Episodic Osteoarthritis (20 sources) Arthritis of left knee; Translations: [Unilateral primary osteoarthritis, left knee] Onset: 07-20-2022 Resolved: 07-20-2022 07-20-2022 Chronic Other connective tissue disease (1 source) Pain in left foot Episodic Other ear and sense organ disorders (13 sources) Hearing loss of right ear; Translations: [Other specified hearing loss, right ear] Onset: 07-20-2022 07-20-2022 Chronic Other hereditary and degenerative nervous system conditions (15 sources) Restless legs; Translations: [Restless legs syndrome] Onset: 10-02-2023 10-02-2023 Chronic Other hereditary and degenerative nervous system conditions (15 sources) Essential tremor; Translations: [Essential tremor] Onset: 10-02-2023 10-02-2023 Chronic Other hereditary and degenerative nervous system conditions (13 sources) Tremor; Translations: [Other specified forms of tremor] Onset: 10-02-2023 10-02-2023 Chronic Other lower respiratory disease (1 source) Unspecified acute lower respiratory infection Episodic Other nervous system disorders (5 sources) Cerebrospinal fluid leak; Translations: [CSF leak] Onset: 01-19-2023 01-18-2023 Episodic Other nervous system disorders (1 source) Postoperative pain ; Translations: [Other acute postprocedural pain] 02-25-2023 Episodic Other non-traumatic joint disorders (6 sources) Pain in left knee; Translations: [Pain in joint, lower leg] 12-21-2023 Episodic Other non-traumatic joint disorders (4 sources) Pain in right knee; Translations: [Pain in joint, lower leg] 03-16-2024 Episodic Other nutritional; endocrine; and metabolic disorders (16 sources) Obesity; Translations: [Obesity, unspecified] Onset: 02-22-2023 02-22-2023 Chronic Other nutritional; endocrine; and metabolic disorders (13 sources) Body mass index 30+ - obesity; Translations: [Obesity, unspecified] Onset: 10-04-2023 10-04-2023 Chronic Other nutritional; endocrine; and metabolic disorders (1 source) Morbid (severe) obesity due to excess calories; Translations: [Morbid (severe) obesity due to excess calories] Onset: 12-03-2021 Chronic Other screening for suspected conditions (not mental disorders or infectious disease) (6 sources) Encounter for screening mammogram for malignant neoplasm of breast; Translations: [Cerebrospinal fluid examination abnormal] Onset: 12-12-2021 Episodic Residual codes; unclassified (18 sources) Obstructive sleep apnea syndrome; Translations: [Obstructive sleep apnea (adult) (pediatric)] Onset: 02-22-2023 02-22-2023 Chronic Residual codes; unclassified (13 sources) Hypersomnia; Translations: [Hypersomnia, unspecified] Onset: 10-02-2023 [...] Translations: [Acquired absence of stomach [part of]] 04-23-2023 Episodic Suicide and intentional self-inflicted injury (3 sources) Suicidal thoughts; Translations: [Suicidal ideations] 07-17-2020 Episodic Unclassified (2 sources) Post-op Visit; Translations: [...] Documented Date Episodic/Chronic Allergic reactions (1 source) Other specified dermatitis; Translations: [Other specified dermatitis] Onset: 05-18-2023 Episodic Conditions associated with dizziness or vertigo (2 sources) Dizziness and giddiness; Translations: [Dizziness] Onset: 09-24-2023 Episodic Fracture of lower limb (1 source) Other fracture of right lower leg, initial encounter for closed fracture Onset: 07-18-2021 Resolved: 07-18-2021 Episodic Joint disorders and dislocations; trauma-related (13 sources) Derangement of left knee; Translations: [Unspecified internal derangement of left knee] Onset: 07-20-2022 Resolved: 07-20-2022 07-20-2022 Chronic Other ear and sense organ disorders (14 sources) Cerebrospinal fluid otorrhea; Translations: [CSF leak from ear] Onset: 11-04-2022 03-16-2023 Episodic Other nervous system disorders (2 sources) Other acute postprocedural pain; Translations: [Other acute postprocedural pain] Onset: 02-22-2023 Episodic Other nervous system disorders (13 sources) Tremor; Translations: [Tremor, unspecified] Onset: 10-02-2023 10-02-2023 Episodic Other non-traumatic joint disorders (1 source) Pain in right ankle and joints of right foot Onset: 07-18-2021 Resolved: 07-18-2021 Episodic Otitis media and related conditions (13 sources) Dysfunction of right eustachian tube; Translations: [Unspecified Eustachian tube disorder, right ear] Onset: 07-20-2022 07-20-2022 Episodic Residual codes; unclassified (13 sources) Amnesia; Translations: [Other amnesia] Onset: 10-02-2023 10-02-2023 Episodic Spondylosis; intervertebral disc disorders; other back problems (1 source) Backache Onset: 07-06-2023 Episodic Sprains and strains (1 source) Strain of muscle and tendon of unspecified wall of thorax, initial encounter; Translations: [Strain of muscle and tendon of unspecified wall of thorax, initial encounter] Onset: 07-06-2023 Episodic Unclassified (3 sources) Onset: 01-07-2023 Resolved: 03-16-2023 01-07-2023 Unclassified (1 source) Cerebrospinal fluid leak, unspecified; Translations: [Cerebrospinal fluid leak, unspecified] Onset: 02-22-2023 Results Test Name Value Interpretation Reference Range Facility No Panel Informationon 07-06 Meño Gomez NP 07/06/2024 2:09 PM L Inj/Asp: R knee on 07/06/2024 2:07 PM Indications: pain Details: 21 G needle, anterolateral approach Medications: 40 mg methylPREDNISolone acetate 40 MG/ML Outcome: tolerated well, no immediate complications Site cleaned with isopropyl alcohol Procedure, treatment alternatives, risks and benefits explained, specific risks discussed. Consent was given by the patient. [facility] Meño Gomez NP 07/06/2024 2:09 PM L Inj/Asp: L knee on 07/06/2024 2:07 PM Indications: pain Details: 21 G needle, anterolateral approach Medications: 40 mg methylPREDNISolone acetate 40 MG/ML Outcome: tolerated well, no immediate complications Site was cleaned with isopropyl alcohol Procedure, treatment alternatives, risks and benefits explained, specific risks discussed. Consent was given by the patient. [facility] XR Knee - left 1 or 2 Viewso n 07-06-2024 Imaging Result: 07/06/2024: AP and lateral views of left knee showed severe osteoarthritis with valgus deformity with kvmg-hj-wztw articulation, flattening of the articular surfaces to the medial joint line lateral joint line and patellofemoral joint. Subchondral sclerosis was noted at the medial joint line surfaces as well as the lateral joint line and patellofemoral joint. Marginal osteophytic formation was noted tricompartmentally. There is no evidence of fracture or dislocation. 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 Subchondral sclerosis was noted at the medial joint line surfaces as well as the lateral joint line and patellofemoral joint. Marginal osteophytic formation was noted tricompartmentally. There is no evidence of fracture or dislocation. Impression: severe degenerative joint disease right knee with valgus deformity Meño Gomez APRN-[facility] Radiology Study observation (narrative) [facility] No Panel Informationon 03-16 Meño Gomez NP 03/16/2024 9:36 AM L Inj/Asp: L knee on 03/16/2024 9:34 AM Indications: pain Details: 21 G needle, anterolateral approach Medications: 40 mg methylPREDNISolone acetate 40 MG/ML Outcome: tolerated well, no immediate complications Site was cleaned with isopropyl alcohol Procedure, treatment alternatives, risks and benefits explained, specific risks discussed. Consent was given by the patient. [facility] Meño Gomez NP 03/16/2024 9:36 AM L Inj/Asp: R knee on 03/16/2024 9:34 AM Indications: pain Details: 21 G needle, anterolateral approach Medications: 40 mg methylPREDNISolone acetate 40 MG/ML Outcome: tolerated well, no immediate complications Site cleaned with isopropyl alcohol Procedure, treatment alternatives, risks and benefits explained, specific risks discussed. Consent was given by the patient. [facility] [employer] VAGINITIS PANEL PCRon 2023 VAGINITIS PANEL [...] clinical presentation to determine patient diagnosis. Normal [facility] Comment on above: Performed By: #### V PPCR #### [facility] ([id number]) [address] [place] [address], [address] [place] [address] [facility] FERRITINon 12-21-2023 Ferritin [Mass/Vol] 178 ng/mL 8.0 - 25 2.0 ng/mL [facility] Panel Informationon 12-20 Meño Gomez NP 12/21/2023 3:59 PM L Inj/Asp: L knee on 12/21/2023 3:59 PM Indications: pain Details: 21 G needle, anterolateral approach Medications: 40 mg methylPREDNISolone acetate 40 MG/ML Outcome: tolerated well, no immediate complications Site was cleaned with isopropyl alcohol Procedure, treatment alternatives, risks and benefits explained, specific risks discussed. Consent was given by the patient. [facility] Magnesiumon 02-25-2023 Magnesium [Mass/Vol] 1.55 mg/dL Low 1.60 - 2.40 mg/dL [facility] Magnesium [Mass/Vol] 1.55 mg/dL Low 1.60-2.40 [facility] Comment on above: Performed By: #### 3 4529-8 #### REGGIE Baugh ([id number]) [facility]) [id number] [place] [address] No Panel Informationon 02-25 Interpretation and review of laboratory results Abnormal [facility] Renal function 2000 panelon 02-25-2023 Albumin BCP dye [Mass/Vol] 3.8 g/dL 3.4 - 5.0 g/dL [facility] Anion gap [Moles/Vol] 13 mmol/L 10 - 20 mmol/L [facility] Calcium [Mass/Vol] 9.2 mg/dL 8.6 - 10. 6 mg/dL [facility] Chloride [Moles/Vol] 100 mmol/L 98 - 107 mmol/L [facility] CO2 [Moles/Vol] 29 mmol/L 21 - 32 mmol/L [facility] Creatinine [Mass/Vol] 0.61 mg/dL 0.50 - 1.05 mg/dL [facility] GFR/1.73 sq M.predicted MDRD (S/P/Bld) [Vol rate/Area] - PINF [facility] Comment on above: Calculations of kortney mated GFR are performed using the 2020 CKD-EPI Study Refit equation without the race variable for the IDMS-Traceable creatinine methods. https://jasn.asnjournals.org/content//ASN.09394165 88 Glucose [Mass/Vol] 121 mg/dL High 74 - 99 mg/dL [facility] Phosphate [Mass/Vol] 2.9 mg/dL 2.5 - 4.9 mg/dL [facility] Comment on above: The performance hina acteristics of phosphorus testing in heparinized plasma have been validated by the individual laboratory site where testing is performed. Testing on heparinized plasma is not approved by the FDA; however, such approval is not necessary. Potassium [Moles/Vol] 4.4 mmol/L 3.5 - 5.3 mmol/L [facility] Sodium [Moles/Vol] 138 mmol/L 136 - 145 mmol/L [facility] Urea nitrogen [Mass/Vol] 11 mg/dL 6 - 23 mg/dL [facility] Albumin BCP dye [Mass/Vol] 3.8 g/dL Normal 3.4-5.0 [facility] Comment on above: Performed By: #### 3 4529-8 #### REGGIE Baugh ([id number]) [facility]) [id number] [place] [address]278 Anion gap [Moles/Vol] 13 mmol/L Normal 10-20 [facility] Comment on above: Performed By: #### 3 4529-8 #### REGGIE Baugh ([id number]) [facility]) [address] [place] [address] 89476 Calcium [Mass/Vol] 9.2 mg/dL Normal 8.6-10.6 [facility] Comment on above: Performed By: #### 3 4529-8 #### REGGIE Baugh ([id number]) [facility]) [id number] [place] [address] 29225 Chloride [Moles/Vol] 100 mmol/L Normal 98-107 [facility] Comment on above: Performed By: #### 3 4529-8 #### REGGIE QUEZADA L ([id number]) [facility]) [address] [place] [address] CO2 [Moles/Vol] 29 mmol/L Normal 21-32 [facility] Comment on above: Performed By: #### 3 4529-8 #### REGGIE QUEZADA L ([id number]) [facility]) [id number] [place] [address] 01922 Creatinine [Mass/Vol] 0.61 mg/dL Normal 0.50-1.05 [facility] Comment on above: Performed By: #### 3 4529-8 #### REGGIE QUEZADA L ([id number]) [facility]) [id number] [place] [address]305 GFR/1.73 sq M.predicted MDRD (S/P/Bld) [Vol rate/Area] mL/min/{1.73_m2} Normal >60 [facility] Comment on above: Result Comment: Calc ulations of estimated GFR are performed using the 2020 CKD-EPI Study Refit equation without the race variable for the IDMS-Traceable creatinine methods. https://jasn.asnjournals.org/content//ASN.88936664 88 Performed By: #### 3 4529-8 #### REGGIE Baugh ([id number]) [facility]) [address] [place] [address] 88659 Glucose [Mass/Vol] 121 mg/dL High 74-99 [facility] Comment on above: Performed By: #### 3 4529-8 #### REGGIE Baugh ([id number]) [facility]) [address] [place] [address] 31431 Phosphate [Mass/Vol] 2.9 mg/dL Normal 2.5-4.9 [facility] Comment on above: Result Comment: The performance characteristics of phosphorus testing in heparinized plasma have been validated by the individual laboratory site where testing is performed. Testing on heparinized plasma is not approved by the FDA; however, such approval is not necessary. Performed By: #### 3 4529-8 #### REGGIE Baugh ([id number]) [facility]) [address] [place] [address] Potassium [Moles/Vol] 4.4 mmol/L Normal 3.5-5.3 [facility] Comment on above: Performed By: #### 3 4529-8 #### REGGIE Baugh ([id number]) [facility]) [id number] [place] [address] 56008 Sodium [Moles/Vol] 138 mmol/L Normal 136-145 [facility] Comment on above: Performed By: #### 3 4529-8 #### REGGIE Baugh ([id number]) [facility]) [address] [place] [address] 46601 Urea nitrogen [Mass/Vol] 11 mg/dL Normal 6-23 [facility] Comment on above: Performed By: #### 3 4529-8 #### REGGIE Baugh ([id number]) [facility]) [address] [place] [address] 06231 Glucose Test strip manual (B ld) [Mass/Vol]on 02-24-2023 Glucose [Mass/Vol] 121 mg/dL High 74 - 99 mg/dL [facility] Interpretation and review of laboratory results Abnormal [facility] Glucose [Mass/Vol] 121 mg/dL High 74-99 [facility] Comment on above: Performed By: #### 3 4529-8 #### REGGIE Baugh ([id number]) [facility]) [address] [place] [address] 37977 Glucose [Mass/Vol] 107 mg/dL High 74 - 99 mg/dL [facility] Interpretation and review of laboratory results Abnormal [facility] Glucose [Mass/Vol] 107 mg/dL High 74-99 [facility] Comment on above: Performed By: #### 3 4529-8 #### REGGIE Baugh ([id number]) [facility]) [address] [place] [address] 41742 Glucose [Mass/Vol] 100 mg/dL High 74 - 99 mg/dL [facility] Interpretation and review of laboratory results Abnormal [facility] Glucose [Mass/Vol] 100 mg/dL High 74-99 [facility] Comment on above: Performed By: #### 3 4529-8 #### REGGIE Baugh ([id number]) [facility]) [address] [place] [address] 57717 CBC W Auto Differential pane l (Bld)on 02-23-2023 Basophils (Bld) [#/Vol] 0.02 10*3/uL [facility] Basophils/100 WBC (Bld) 0.2 % 0.0 - 2.0 % [facility] Eosinophils (Bld) [#/Vol] 0.03 10*3/uL [facility] Eosinophils/100 WBC (Bld) 0.3 % 0.0 - 6.0 % [facility] Erythrocyte distribution width (RBC) [Ratio] 13.2 % 11.5 - 14.5 % [facility] Hematocrit (Bld) [Volume fraction] 37.0 % 36.0 - 46.0 % [facility] Hemoglobin (Bld) [Mass/Vol] 12.0 g/dL 12.0 - 16.0 g/dL [facility] Immature granulocytes (Bld) [#/Vol] 0.02 10*3/uL [facility] Immature granulocytes/100 WBC (Bld) 0.2 % 0.0 - 0.9 % [facility] Comment on above: Immature Granulocyte Count (IG) includes promyelocytes, myelocytes and metamyelocytes but does not include bands. Percent differential counts (%) should be interpreted in the context of the absolute cell counts (cells/UL). Interpretation and review of laboratory results Abnormal [facility] Lymphocytes (Bld) [#/Vol] 1.95 10*3/uL [facility] Lymphocytes/100 WBC (Bld) 18.2 % 13.0 - 44.0 % [facility] MCH (RBC) [Entitic mass] 28.7 pg 26.0 - 34.0 pg [facility] MCHC (RBC) [Mass/Vol] 32.4 g/dL 32.0 - 36.0 g/dL [facility] MCV (RBC) [Entitic vol] 89 fL 80 - 100 fL [facility] Monocytes (Bld) [#/Vol] 0.66 10*3/uL [facility] Monocytes/100 WBC (Bld) 6.2 % 2.0 - 10.0 % [facility] Neutrophils (Bld) [#/Vol] 8.01 10*3/uL High [facility] Comment on above: Percent differential counts (%) should be interpreted in the context of the absolute cell counts (cells/uL). Neutrophils/100 WBC (Bld) 74.9 % 40.0 - 80.0 % [facility] Nucleated RBC/100 WBC (Bld) [Ratio] 0.0 % [facility] Platelets (Bld) [#/Vol] 250 10*3/uL [facility] RBC (Bld) [#/Vol] 4.18 10*6/uL [facility] WBC (Bld) [#/Vol] 10.7 10*3/uL [facility] Basophils (Bld) [#/Vol] 0.02 x10*3/uL Normal 0.00-0.10 [facility] Comment on above: Performed By: #### 3 4529-8 #### REGGIE Baugh ([id number]) [facility]) [address] [place] [address] 27416 Basophils/100 WBC (Bld) 0.2 % Normal 0.0-2.0 [facility] Comment on above: Performed By: #### 3 4529-8 #### REGGIE Baugh ([id number]) [facility]) [address] [place] [address] 35161 Eosinophils (Bld) [#/Vol] 0.03 x10*3/uL Normal 0.00-0.70 [facility] Comment on above: Performed By: #### 3 4529-8 #### REGGIE Baugh ([id number]) [facility]) [address] [place] [address] 88464 Eosinophils/100 WBC (Bld) 0.3 % Normal 0.0-6.0 [facility] Comment on above: Performed By: #### 3 4529-8 #### REGGIE Baugh ([id number]) [facility]) [address] [place] [address] 58796 Erythrocyte distribution width (RBC) [Ratio] 13.2 % Normal 11.5-14.5 [facility] Comment on above: Performed By: #### 3 4529-8 #### REGGIE Baugh ([id number]) [facility]) [address] [place] [address] Hematocrit (Bld) [Volume fraction] 37.0 % Normal 36.0-46.0 [facility] Comment on above: Performed By: #### 3 4529-8 #### REGGIE Baugh ([id number]) [facility]) [address] [place] [address] 29259 Hemoglobin (Bld) [Mass/Vol] 12.0 g/dL Normal 12.0-16.0 [facility] Comment on above: Performed By: #### 3 4529-8 #### REGGIE Baugh ([id number]) [facility]) [address] [place] [address] 70057 Immature granulocytes (Bld) [#/Vol] 0.02 x10*3/uL Normal 0.00-0.70 [facility] Comment on above: Performed By: #### 3 4529-8 #### REGGIE Baugh ([id number]) [facility]) [address] [place] [address] 72027 Immature granulocytes/100 WBC (Bld) 0.2 % Normal 0.0-0.9 [facility] Comment on above: Result Comment: [place] ture Granulocyte Count (IG) includes promyelocytes, myelocytes and metamyelocytes but does not include bands. Percent differential counts (%) should be interpreted in the context of the absolute cell counts (cells/UL). Performed By: #### 3 4529-8 #### REGGIE Baugh ([id number]) [facility]) [address] [place] [address] 06622 Lymphocytes (Bld) [#/Vol] 1.95 x10*3/uL Normal 1.20-4.80 [facility] Comment on above: Performed By: #### 3 4529-8 #### REGGIE Baugh ([id number]) [facility]) [address] [place] [address] 60140 Lymphocytes/100 WBC (Bld) 18.2 % Normal 13.0-44.0 [facility] Comment on above: Performed By: #### 3 4529-8 #### REGGIE Baugh ([id number]) [facility]) [address] [place] [address] MCH (RBC) [Entitic mass] 28.7 pg Normal 26.0-34.0 [facility] Comment on above: Performed By: #### 3 4529-8 #### REGGIE Baugh ([id number]) [facility]) [id number] [place] [address] 51599 MCHC (RBC) [Mass/Vol] 32.4 g/dL Normal 32.0-36.0 [facility] Comment on above: Performed By: #### 3 4529-8 #### REGGIE Baugh ([id number]) [facility]) [address] [place] [address] 15334 MCV (RBC) [Entitic vol] 89 fL Normal 80-100 [facility] Comment on above: Performed By: #### 3 4529-8 #### REGGIE Baugh ([id number]) [facility]) [address] [place] [address] 30274 Monocytes (Bld) [#/Vol] 0.66 x10*3/uL Normal 0.10-1.00 [facility] Comment on above: Performed By: #### 3 4529-8 #### REGGIE Baugh ([id number]) [facility]) [address] [place] [address] 00416 Monocytes/100 WBC (Bld) 6.2 % Normal 2.0-10.0 [facility] Comment on above: Performed By: #### 3 4529-8 #### REGGIE Baugh ([id number]) [facility]) [address] [place] [address] 72615 Neutrophils (Bld) [#/Vol] 8.01 x10*3/uL High 1.20-7.70 [facility] Comment on above: Result Comment: Perc ent differential counts (%) should be interpreted in the context of the absolute cell counts (cells/uL). Performed By: #### 3 4529-8 #### REGGIE Baugh ([id number]) [facility]) [address] [place] [address] Neutrophils/100 WBC (Bld) 74.9 % Normal 40.0-80.0 [facility] Comment on above: Performed By: #### 3 4529-8 #### REGGIE Baugh ([id number]) [facility]) [id number] [place] [address] 91105 Nucleated RBC/100 WBC (Bld) [Ratio] 0.0 /100 WBCs Normal 0.0-0.0 [facility] Comment on above: Performed By: #### 3 4529-8 #### REGGIE Baugh ([id number]) [facility]) [address] [place] [address] 17129 Platelets (Bld) [#/Vol] 250 x10*3/uL Normal 150-450 [facility] Comment on above: Performed By: #### 3 4529-8 #### REGGIE Baugh ([id number]) [facility]) [address] [place] [address] 43001 RBC (Bld) [#/Vol] 4.18 x10*6/uL Normal 4.00-5.20 [facility] Comment on above: Performed By: #### 3 4529-8 #### REGGIE Baugh ([id number]) [facility]) [id number] [place] [address] 29162 WBC (Bld) [#/Vol] 10.7 x10*3/uL Normal 4.4-11.3 [facility] Comment on above: Performed By: #### 3 4529-8 #### REGGIE Baugh ([id number]) [facility]) [address] [place] [address] 64940 Magnesiumon 02-23-2023 Magnesium [Mass/Vol] 1.52 mg/dL Low 1.60 - 2.40 mg/dL [facility] Magnesium [Mass/Vol] 1.52 mg/dL Low 1.60-2.40 [facility] Comment on above: Performed By: #### 3 4529-8 #### REGGIE Baugh ([id number]) [facility]) [address] [place] [address] No Panel Informationon 02-23 Interpretation and review of laboratory results Abnormal [facility] Renal function 2000 panelon 02-23-2023 Albumin BCP dye [Mass/Vol] 3.5 g/dL 3.4 - 5.0 g/dL [facility] Anion gap [Moles/Vol] 10 mmol/L 10 - 20 mmol/L [facility] Calcium [Mass/Vol] 8.8 mg/dL 8.6 - 10. 6 mg/dL [facility] Chloride [Moles/Vol] 100 mmol/L 98 - 107 mmol/L [facility] CO2 [Moles/Vol] 31 mmol/L 21 - 32 mmol/L [facility] Creatinine [Mass/Vol] 0.47 mg/dL Low 0.50 - 1.05 mg/dL [facility] GFR/1.73 sq M.predicted MDRD (S/P/Bld) [Vol rate/Area] - [facility] [facility] Comment on above: Calculations of kortney mated GFR are performed using the 2020 CKD-EPI Study Refit equation without the race variable for the IDMS-Traceable creatinine methods. https://jasn.asnjournals.org/content//ASN.24683701 88 Glucose [Mass/Vol] 114 mg/dL High 74 - 99 mg/dL [facility] Phosphate [Mass/Vol] 3.5 mg/dL 2.5 - 4.9 mg/dL [facility] Comment on above: The performance hina acteristics of phosphorus testing in heparinized plasma have been validated by the individual laboratory site where testing is performed. Testing on heparinized plasma is not approved by the FDA; however, such approval is not necessary. Potassium [Moles/Vol] 4.1 mmol/L 3.5 - 5.3 mmol/L [facility] Sodium [Moles/Vol] 137 mmol/L 136 - 145 mmol/L [facility] Urea nitrogen [Mass/Vol] 13 mg/dL 6 - 23 mg/dL [facility] Albumin BCP dye [Mass/Vol] 3.5 g/dL Normal 3.4-5.0 [facility] Comment on above: Performed By: #### 3 4529-8 #### REGGIE Baugh ([id number]) [facility]) [id number] [place] [address] 02920 Anion gap [Moles/Vol] 10 mmol/L Normal 10-20 [facility] Comment on above: Performed By: #### 3 4529-8 #### REGGIE Baugh ([id number]) [facility]) [address] [place] [address] 66281 Calcium [Mass/Vol] 8.8 mg/dL Normal 8.6-10.6 [facility] Comment on above: Performed By: #### 3 4529-8 #### REGGIE Baugh ([id number]) [facility]) [id number] [place] [address] 04291 Chloride [Moles/Vol] 100 mmol/L Normal 98-107 [facility] Comment on above: Performed By: #### 3 4529-8 #### REGGIE Baugh ([id number]) [facility]) [address] [place] [address] 00896 CO2 [Moles/Vol] 31 mmol/L Normal 21-32 [facility] Comment on above: Performed By: #### 3 4529-8 #### REGIGE QUEZADA L ([id number]) [facility]) [address] [place] [address] 05619 Creatinine [Mass/Vol] 0.47 mg/dL Low 0.50-1.05 [facility] Comment on above: Performed By: #### 3 4529-8 #### REGGIE Baugh ([id number]) [facility]) [id number] [place] [address] 72343 GFR/1.73 sq M.predicted MDRD (S/P/Bld) [Vol rate/Area] mL/min/{1.73_m2} Normal >60 [facility] Comment on above: Result Comment: Calc ulations of estimated GFR are performed using the 2020 CKD-EPI Study Refit equation without the race variable for the IDMS-Traceable creatinine methods. https://jasn.asnjournals.org/content//ASN.83072706 88 Performed By: #### 3 4529-8 #### REGGIE Baugh ([id number]) [facility] [facility] ([facility]) [address] [place] [address]8534 Glucose [Mass/Vol] 114 mg/dL High 74-99 [facility] Comment on above: Performed By: #### 3 4529-8 #### REGGIE Baugh ([id number]) [facility] ([facility]) [address] [place] [address] 04828 Phosphate [Mass/Vol] 3.5 mg/dL Normal 2.5-4.9 [facility] Comment on above: Result Comment: The performance characteristics of phosphorus testing in heparinized plasma have been validated by the individual laboratory site where testing is performed. Testing on heparinized plasma is not approved by the FDA; however, such approval is not necessary. Performed By: #### 3 4529-8 #### REGGIE Baugh ([id number]) [facility] ([facility]) [address] [place] [address] 33695 Potassium [Moles/Vol] 4.1 mmol/L Normal 3.5-5.3 [facility] Comment on above: Performed By: #### 3 4529-8 #### REGGIE Baugh ([id number]) [facility] ([facility]) [address] [place] [address] 91004 Sodium [Moles/Vol] 137 mmol/L Normal 136-145 [facility] Comment on above: Performed By: #### 3 4529-8 #### REGGIE Baugh ([id number]) [facility] ([facility]) [address] [place] [address] Urea nitrogen [Mass/Vol] 13 mg/dL Normal 6-23 [facility] Comment on above: Performed By: #### 3 4529-8 #### REGGIE Baugh ([id number]) [facility] ([facility]) [address] [id number] CT HEAD WO IV CONTRASTon CT HEAD WO IV CONTRAST Interpreted By: Meenakshi Coker, STUDY: CT HEAD WO IV CONTRAST; 02/22/2023 12:48 pm INDICATION: Signs/Symptoms:s/p crani for tegmen defect repair. COMPARISON: CT head from 10/16/2022 ACCESSION NUMBER(S): [id number] ORDERING CLINICIAN: KATHERINE POLANCO TECHNIQUE: Noncontrast axial [...] Meenakshi Coker 02/22/2023 1:04 PM Dictation workstation: [id number] [facility] CT Head WO contraston 2022 Status post right temporal craniotomy with postsurgical repair along the right tegmen tympani. Signed by: Meenakshi Coker 02/22/2023 1:04 PM Dictation workstation: [id number] [facility] Interpreted By: Meenakshi Coker, STUDY: CT HEAD WO IV CONTRAST; 02/22/2023 12:48 pm INDICATION: Signs/Symptoms:s/p crani for tegmen defect repair. COMPARISON: CT head from 10/16/2022 ACCESSION NUMBER(S): [id number] ORDERING CLINICIAN: KATHERINE POLANCO TECHNIQUE: Noncontrast axial [...] COMPARISON: CT head from 10/16/2022 ACCESSION NUMBER(S): [id number] ORDERING CLINICIAN: KATHERINE POLANCO TECHNIQUE: Noncontrast axial [...] Meenakshi Coker 02/22/2023 1:04 PM Dictation workstation: [id number] [facility] Work Phone: Radiology Study observation (narrative) [facility] Work Phone: CT Head WO contrastOrdered B y: Meenakshi Coker on 02-22-2023 [facility] Work Phone: Glucose Test strip manual (B ld) [Mass/Vol]on 02-22-2023 Glucose [Mass/Vol] 107 mg/dL High 74 - 99 mg/dL [facility] Interpretation and review of laboratory results Abnormal [facility] Glucose [Mass/Vol] 107 mg/dL High 74-99 [facility] Comment on above: Performed By: #### 2 341-6 #### REGGIE Baugh ([id number]) [facility] ([facility]) [address] [place], [place] [address] Bacteria identifiedon 2022 Bacteria identified Cx Nom (U) Test: Urine Culture Specimen Source: Clean Catch/Voided Specimen Type: Urine Specimen Date: 02/17/2023 1:34 PM Result Date: 02/18/2023 11:30 AM Result Status: Final result Abnormal: No Resulting Lab: [facility] [address] [place], [place] [id number] CULTURE No significant growth Normal [facility] Comment on above: Performed By: #### 6 30-4 #### REGGIE Baugh ([id number]) [facility] ([facility]) [address] [place] [address] 57771 Basic metabolic 2000 panelon 02-17-2023 Anion gap [Moles/Vol] 16 mmol/L Normal 10-20 [facility] Comment on above: Performed By: #### 2 4321-2 #### REGGIE Baugh ([id number]) [facility] ([facility]) [address] [place], [place] [address] Calcium [Mass/Vol] 9.7 mg/dL Normal 8.6-10.6 [facility] Comment on above: Performed By: #### 2 4321-2 #### REGGIE Baugh ([id number]) [facility] ([facility]) [address] [place] [address] Chloride [Moles/Vol] 100 mmol/L Normal 98-107 [facility] Comment on above: Performed By: #### 2 4321-2 #### REGGIE Baugh ([id number]) [facility] ([facility]) [address] [place] [address] CO2 [Moles/Vol] 27 mmol/L Normal 21-32 [facility] Comment on above: Performed By: #### 2 4321-2 #### REGGIE Baugh ([id number]) [facility] ([facility]) [address] [place] [address]457 Creatinine [Mass/Vol] 0.62 mg/dL Normal 0.50-1.05 [facility] Comment on above: Performed By: #### 2 4321-2 #### REGGIE Baugh ([id number]) [facility] ([facility]) [address] [place] [address] GFR/1.73 sq M.predicted MDRD (S/P/Bld) [Vol rate/Area] mL/min/{1.73_m2} Normal >60 [facility] Comment on above: Result Comment: Calc ulations of estimated GFR are performed using the 2020 CKD-EPI Study Refit equation without the race variable for the IDMS-Traceable creatinine methods. https://jasn.asnjournals.org/content/early//ASN.03619635 88 Performed By: #### 2 4321-2 #### REGGIE Baugh ([id number]) [facility] ([facility]) [address] [place] [address] Glucose [Mass/Vol] 90 mg/dL Normal 74-99 [facility] Comment on above: Performed By: #### 2 4321-2 #### REGGIE Baugh ([id number]) [facility] ([facility]) [address] [place] [address] Potassium [Moles/Vol] 4.9 mmol/L Normal 3.5-5.3 [facility] Comment on above: Performed By: #### 2 4321-2 #### REGGIE Baugh ([id number]) [facility] ([facility]) [address] [place] [address] Sodium [Moles/Vol] 138 mmol/L Normal 136-145 [facility] Comment on above: Performed By: #### 2 4321-2 #### REGGIE Baugh ([id number]) [facility] ([facility]) [address] [place] [address] 88310 Urea nitrogen [Mass/Vol] 25 mg/dL High 6-23 [facility] Comment on above: Performed By: #### 2 4321-2 #### REGGIE Baugh ([id number]) [facility] ([facility]) [address] [place] [address] 04665 Blood type and Indirect anti body screen panel (Bld)on 02-17-2023 ABO group Nom (Bld) O [facility] Comment on above: Performed By: #### 3 4532-2 #### REGGIE Baugh ([id number]) [facility] ([facility]) [address] [place] [address] 22041 Blood group antibody screen Ql Negative [facility] Comment on above: Performed By: #### 3 4532-2 #### REGGIE Baugh ([id number]) [facility] ([facility]) [address] [place] [address] 13679 D Ag Ql (Bld) Positive [facility] Comment on above: Result Comment: 2nd ABO test required. Order and Collect VERAB Performed By: #### 3 4532-2 #### REGGIE Baugh ([id number]) [facility] ([facility]) [address] [place] [address] 22993 CBC panel Auto (Bld)on 12-13 -2023 Erythrocyte distribution width (RBC) [Ratio] 13.1 % Normal 11.5-14.5 [facility] Comment on above: Performed By: #### 5 8410-2 #### REGGIE Baugh ([id number]) [facility] ([facility]) [address] [place] [address] 38224 Hematocrit (Bld) [Volume fraction] 41.4 % Normal 36.0-46.0 [facility] Comment on above: Performed By: #### 5 8410-2 #### REGGIE Baugh ([id number]) [facility] ([facility]) [address] [place] [address] 66301 Hemoglobin (Bld) [Mass/Vol] 13.3 g/dL Normal 12.0-16.0 [facility] Comment on above: Performed By: #### 5 8410-2 #### REGGIE Baugh ([id number]) [facility] ([facility]) [address] [place] [address] 18979 MCH (RBC) [Entitic mass] 28.9 pg Normal 26.0-34.0 [facility] Comment on above: Performed By: #### 5 8410-2 #### REGGIE Baugh ([id number]) [facility] ([facility]) [address] [place] [address] 97736 MCHC (RBC) [Mass/Vol] 32.1 g/dL Normal 32.0-36.0 [facility] Comment on above: Performed By: #### 5 8410-2 #### REGGIE Baugh ([id number]) [facility] ([facility]) [address] [place] [address] 47660 MCV (RBC) [Entitic vol] 90 fL Normal 80-100 [facility] Comment on above: Performed By: #### 5 8410-2 #### REGGIE Baugh ([id number]) [facility] ([facility]) [address] [place] [address] 25342 Nucleated RBC/100 WBC (Bld) [Ratio] 0.0 /100 WBCs Normal 0.0-0.0 [facility] Comment on above: Performed By: #### 5 8410-2 #### REGGIE Baugh ([id number]) [facility] ([facility]) [address] [place] [address] Platelets (Bld) [#/Vol] 294 x10*3/uL Normal 150-450 [facility] Comment on above: Performed By: #### 5 8410-2 #### REGGIE Baugh ([id number]) [facility] ([facility]) [address] [place] [address] RBC (Bld) [#/Vol] 4.61 x10*6/uL Normal 4.00-5.20 [facility] Comment on above: Performed By: #### 5 8410-2 #### REGGIE QUEZADA L ([id number]) [facility] ([facility]) [address] [place] [address] WBC (Bld) [#/Vol] 8.5 x10*3/uL Normal 4.4-11.3 [facility] Comment on above: Performed By: #### 5 8410-2 #### REGGIE Baugh ([id number]) [facility] ([facility]) [address] [place] [address] HbA1c (Bld) [Mass fraction]o n 02-17-2023 Average glucose Estimated from glycated hemoglobin (Bld) [Mass/Vol] 123 mg/dL Normal Not Established [facility] Comment on above: Order Comment: Diagn osis of Diabetes-Adults Non-Diabetic: < or = 5.6% Increased risk for developing diabetes: 5.7-6.4% Diagnostic of diabetes: > or = 6.5% Monitoring of Diabetes Age (y)....................... Therapeutic Goal (%) Adults: >18.........................<7.0 Pediatrics: 13-18...................<7.5 Pediatrics: 7-12....................<8.0 Pediatrics: 0-6..................... 7.5-8.5 [place] [employer]. Diabetes Care 33(S1)Mar 2009 Performed By: #### 4 548-4 #### REGGIE Baugh ([id number]) [facility] ([facility]) [address] [place], [place] [address] Hemoglobin A1c/Hemoglobin.to gustavo 02-17-2023 HbA1c (Bld) [Mass fraction] 5.9 % High see below [facility] Comment on above: Order Comment: Diagn osis of Diabetes-Adults Non-Diabetic: < or = 5.6% Increased risk for developing diabetes: 5.7-6.4% Diagnostic of diabetes: > or = 6.5% Monitoring of Diabetes Age (y)....................... Therapeutic Goal (%) Adults: >18.........................<7.0 Pediatrics: 13-18...................<7.5 Pediatrics: 7-12....................<8.0 Pediatrics: 0-6..................... 7.5-8.5 [place] [employer]. Diabetes Care 33(S1)Mar 2009 Performed By: #### 4 548-4 #### REGGIE Baugh ([id number]) [facility] ([facility]) [address] [place] [address] PT and aPTT panel Coag (PPP) on 02-17-2023 aPTT Coag (PPP) [Time] 36 s Normal 27-38 [facility] Comment on above: Order Comment: The A PTT is no longer used for monitoring Unfractionated Heparin Therapy. For monitoring Heparin Therapy, use the Heparin Assay. Performed By: #### 3 4529-8 #### REGGIE Baugh ([id number]) [facility] ([facility]) [address] [place] [address] INR Coag (PPP) [Relative time] 1.1 Normal 0.9-1.1 [facility] Comment on above: Order Comment: The A PTT is no longer used for monitoring Unfractionated Heparin Therapy. For monitoring Heparin Therapy, use the Heparin Assay. Performed By: #### 3 4529-8 #### REGGIE Baugh ([id number]) [facility] ([facility]) [address] [place], [place] [address] PT Coag (PPP) [Time] 12.8 s Normal 9.8-12.8 [facility] Comment on above: Order Comment: The A PTT is no longer used for monitoring Unfractionated Heparin Therapy. For monitoring Heparin Therapy, use the Heparin Assay. Performed By: #### 3 4529-8 #### REGGIE Baugh ([id number]) [facility] ([facility]) [address] [place] [address] Staphylococcus aureus.methic illin resistant isolateon 02-17-2023 MRSA isol Org specific cx Ql (Nose) Test: Staphylococcus aureus/MRSA colonization, Culture Specimen Source: Nares/Axilla/Groin Specimen Type: Swab Specimen Date: 02/17/2023 1:34 PM Result Date: 02/19/2023 7:40 AM Result Status: Final result Abnormal: No Resulting Lab: [facility] [address] [place] [address] CULTURE No Staphylococcus aureus isolated Normal [facility] Comment on above: Performed By: #### 5 2969-3 #### REGGIE Baugh ([id number]) [facility] ([facility]) [address] [place], [place] [address] Urinalysis complete W Reflex Culture panel (U)on 02-17-2023 Appearance (U) Clear Normal Clear [facility] Comment on above: Performed By: #### 5 8077-9 #### REGGIE Baugh ([id number]) [facility] ([facility]) [address] [place] [address] 25776 Bilirubin (U) [Mass/Vol] Negative Normal NEGATIVE [facility] Comment on above: Performed By: #### 5 8077-9 #### REGGIE Baugh ([id number]) [facility] ([facility]) [address] [place] [address] 13608 Color (U) Yellow Normal Straw, Yellow [facility] Comment on above: Performed By: #### 5 8077-9 #### REGGIE Baugh ([id number]) [facility] ([facility]) [address] [place] [address] 92748 Glucose Auto test strip (U) [Mass/Vol] Negative Normal NEGATIVE [facility] Comment on above: Performed By: #### 5 8077-9 #### REGGIE Baugh ([id number]) [facility] ([facility]) [address] [place] [address] 69668 Ketones (U) [Mass/Vol] Negative Normal NEGATIVE [facility] Comment on above: Performed By: #### 5 8077-9 #### REGGIE Baugh ([id number]) [facility] ([facility]) [address] [place] [address] 29879 Leukocyte esterase Auto test strip Ql (U) SMALL (1+) Abnormal NEGATIVE [facility] Comment on above: Performed By: #### 5 8077-9 #### REGGIE Baugh ([id number]) [facility] ([facility]) [address] [place] [address] 22467 Nitrite Auto test strip Ql (U) Negative Normal NEGATIVE [facility] Comment on above: Performed By: #### 5 8077-9 #### REGGIE Baugh ([id number]) [facility] ([facility]) [address] [place] [address] 86886 pH (U) 5.0 [pH] Normal 5.0, 5.5, 6.0, 6.5, 7.0, 7.5, 8.0 [facility] Comment on above: Performed By: #### 5 8077-9 #### REGGIE QUEZADA L ([id number]) [facility] ([facility]) [address] [place] [address] 60159 Protein (U) [Mass/Vol] Negative Normal NEGATIVE [facility] Comment on above: Performed By: #### 5 8077-9 #### REGGIE QUEZADA L ([id number]) [facility] ([facility]) [address] [place] [address] 09227 RBC (U) [#/Vol] Negative Normal NEGATIVE [facility] Comment on above: Performed By: #### 5 8077-9 #### REGGIE Baugh ([id number]) [facility] ([facility]) [address] [place] [address] 48762 Specific gravity (U) [Rel density] 1.019 Normal 1.005-1.035 [facility] Comment on above: Performed By: #### 5 8077-9 #### REGGIE QUEZADA L ([id number]) [facility] ([facility]) [address] [place] [address] 62816 Urobilinogen (U) [Mass/Vol] mg/dL Normal <2.0 [facility] Comment on above: Performed By: #### 5 8077-9 #### REGGIE Baugh ([id number]) [facility] ([facility]) [address] [place] [address] 53216 Urinalysis microscopic panel Auto Ql (U)on 02-17-2023 Epithelial cells.squamous Auto (Urine sed) [#/Area] 1-9 (SPARSE) Normal Reference range not established. [facility] Comment on above: Performed By: #### 5 3315-8 #### REGGIE CARPENTERER L ([id number]) [facility] ([facility]) [address] [place] [address] 38202 RBC Auto (Urine sed) [#/Area] 1-2 Normal NONE, 1-2, 3-5 [facility] Comment on above: Performed By: #### 5 3315-8 #### REGGIE QUEZADA L ([id number]) [facility] ([facility]) [address] [place] [address] [place] [address] WBC Auto (Urine sed) [#/Area] 1-5 Normal 1-5, NONE [facility] Comment on above: Performed By: #### 5 3315-8 #### REGGIE Baugh ([id number]) [facility] ([facility]) [address] [place] [address] XR foot LT min 3V*on 023 XR foot LT min 3V* [facility] [employer] [facility] [employer] Other XR foot LT min 3V* [facility] [employer] Other XR foot LT min 3V* [address] [place] [address] [employer] Other XR foot LT min 3V* [place] [address] [employer] Other XR foot LT min 3V* XRay Report [employer] Other XR foot LT min 3V* Signed [employer] Other XR foot LT min 3V* Patient: Ya Womack MR#: [id number] [employer] Other XR foot LT min 3V* 671 [employer] Other XR foot LT min 3V* : 1965 Acct:[id number] [employer] Other XR foot LT min 3V* Age/Sex: 57 / F ADM Date: 09/12/22 [employer] Other XR foot LT min 3V* Loc: XDUCLY Room: Type: [facility] [employer] Other XR foot LT min 3V* Attending Dr: Carol CORTEZ [employer] Other XR foot LT min 3V* Copies to: DANA Che [employer] Other XR foot LT min 3V* Ordering Provider: DANA Che [employer] Other XR foot LT min 3V* Date of Service: 09/12/22 [employer] Other XR foot LT min 3V* XR/XR foot LT min 3V*: Left foot pain [employer] Other XR foot LT min 3V* XR foot LT min 3V* 09/12/2022 12:11 PM [employer] Other XR foot LT min 3V* SIGNS AND SYMPTOMS: Left foot pain and swelling [employer] Other XR foot LT min 3V* PROTOCOL: Frontal, lateral, and oblique radiographs of the left foot [employer] Other XR foot LT min 3V* COMPARISON: None [employer] Other XR foot LT min 3V* FINDINGS: [employer] Other XR foot LT min 3V* There is a remote healed fifth metatarsal fracture. The joint spaces are preserved. There is no [employer] Other XR foot LT min 3V* evidence of acute displaced fracture. There is plantar surface calcaneal spurring. There is diffuse [employer] Other XR foot LT min 3V* soft tissue swelling. [employer] Other XR foot LT min 3V* XR/XR foot LT min 3V* [employer] Other XR foot LT min 3V* IMPRESSION: [employer] Other XR foot LT min 3V* No acute displaced fracture. [employer] Other XR foot LT min 3V* There is a remote healed fifth metatarsal fracture. [employer] Other XR foot LT min 3V* There is diffuse sof t tissue swelling which is nonspecific. [employer] Other XR foot LT min 3V* Impression dictated by: Alli Woods M.D.09/12/2022 12:29 PM [employer] Other XR foot LT min 3V* Dictation Location: [address] [employer] Other XR foot LT min 3V* Transcribed By: KEERTHI 09/12/22 1229 [employer] Other XR foot LT min 3V* Dictated By: Alli Woods II, MD 09/12/22 1228 [employer] Other XR foot LT min 3V* Signed By: [employer] Other XR foot LT min 3V* 09/12/[address] [place] [address] [employer] Other FREE T4on 12-12-2021 Free T4 [Mass/Vol] 0.86 ng/dL Normal 0.76-1.46 [facility] Comment on above: Performed By: #### F T4 #### [facility] [address] [place] [address] Dr. Jose Luis Diaz MG MAMM SCREEN 3D RAFY CADon 12-12-2021 MG MAMM SCREEN 3D RAFY CAD Patient: YA WOMACK Exam Date: 12/12/2021 : 1965 Gender:F Ordering : DR HARLAN ALMEIDA Admission #: [id number] Family : DR OLAF ANGUIANO Order #: [id number] CLICK HERE TO VIEW EXAM RADIOLOGY REPORT [...] lung cancer at age 49. LOCATION: [facility] BREAST COMPOSITION: Almost entirely fatty. FINDINGS: [...] Thompson MD on 12/12/2021 at 12:58 Normal [facility] TSHon 12-12-2021 TSH 1.592 uIU/mL Normal 0.358-3.740 [facility] Comment on above: Performed By: #### T SH #### [facility] [address] [place] [address] Dr. Jose Luis Diaz MICROALBUMIN/ CREATININE RAT IOon 11-25-2021 Albumin, Urine 170.0 ug/mL Normal Not Estab. [facility] Comment on above: Performed By: #### M ALBCRL #### [facility] [address] [place] [address] Dr. Jose Luis Diaz Albumin/ Creatinine Ratio 78 mg/g creat Critically high 0-29 [facility] Comment on above: Result Comment: Norm al: 0 - 29 Moderately increased: 30 - 300 Severely increased: >300 Performed By: #### M ALBCRL #### [facility] [address] [place] [address] Dr. Jose Luis Diaz Creatinine, Urine 216.7 mg/dL Normal Not Estab. [facility] Comment on above: Performed By: #### M ALBCRL #### [facility] [address] [place] [address] Dr. Jose Luis Diaz GLYCOHEMOGLOBIN A1Con 2021 ADA RECOMMENDATION SEE BELOW Normal [facility] Comment on above: Result Comment: ADA RECOMMENDED LIMIT 4.0 - 6.0 ADA THERAPEUTIC TARGET < 7.0 ACTION SUGGESTED > 7.0 Performed By: #### A 1C #### [facility] [address] [place] [address] Dr. Jose Luis Diaz Glucose [Mass/Vol] 126 mg/dL Normal [facility] Comment on above: Performed By: #### A 1C #### [facility] [address] [address] [address] Jose Luis Diaz HbA1c (Bld) [Mass fraction] 6.0 % Normal 4.5-6.2 [facility] Comment on above: Performed By: #### A 1C #### [facility] [address] [address] [address] Jose Luis Diaz LIPID PROFILEon 11-24-2021 CHOL-HDL RATIO NORM SEE BELOW Normal [facility] Comment on above: Result Comment: 3.3 - 4.4 LOW RISK 4.4 - 7.1 AVERAGE RISK 7.1 - 11.0 MODERATE RISK >11.0 HIGH RISK Performed By: #### L IPID, CMP #### [facility] [address] [address] [address] Jose Luis Diaz Cholesterol [Mass/Vol] 201 mg/dL Critically high <=200 [facility] Comment on above: Performed By: #### L IPID, CMP #### [facility] [address] [address] [address] Jose Luis Diaz Cholesterol in HDL [Mass/Vol] 60 mg/dL Normal 40-60 [facility] Comment on above: Performed By: #### L IPID, CMP #### [facility] [address] [address] [address] Jose Luis Diaz Cholesterol in LDL [Mass/Vol] 111.0 mg/dL Normal [facility] Comment on above: Performed By: #### L IPID, CMP #### [facility] [address] [address] [address] Jose Luis Diaz Cholesterol.total/C holesterol in HDL [Mass ratio] 3.4 {ratio} Normal [facility] Comment on above: Performed By: #### L IPID, CMP #### [facility] [address] [address] [address] Jose Luis Diaz HDL NORMAL > or = 60 mg/dl - LO W CARDIOVASCULAR RISK <40 mg/dl - HIGH CARDIOVASCULAR RISK Normal [facility] Comment on above: Performed By: #### L IPID, CMP #### [facility] [address] [address] [address] Jose Luis Diaz LDL CALC NORMAL SEE BELOW Normal [facility] Comment on above: Result Comment: <100 mg/dl OPTIMAL 100 - 129 mg/dl NEAR OR ABOVE OPTIMAL 130 - 159 mg/dl BORDERLINE HIGH 160 - 189 mg/dl HIGH >190 mg/dl VERY HIGH Performed By: #### L IPID, CMP #### [facility] [address] [address] [address] Jose Luis Diaz Triglyceride [Mass/Vol] 150 mg/dL Normal <=150 [facility] Comment on above: Performed By: #### L IPID, CMP #### [facility] [address] [address] [address] Jose Luis Diaz VLDL CALC 30.0 mg/dL Normal [facility] Comment on above: Performed By: #### L IPID, CMP #### [facility] [address] [place] [address] Dr. Jose Luis Diaz PROF 14(COMP METB)on 022 Albumin [Mass/Vol] 3.6 g/dL Normal 3.4-5.0 [facility] Comment on above: Performed By: #### L IPID, CMP #### [facility] [address] [place] [address] Dr. Jose Luis Diaz Albumin/Globulin [Mass ratio] 0.8 {ratio} Normal [facility] Comment on above: Performed By: #### L IPID, CMP #### [facility] [address] [place] [address] Dr. Jose Luis Diaz ALP [Catalytic activity/Vol] 79 U/L Normal 46-116 [facility] Comment on above: Performed By: #### L IPID, CMP #### [facility] [address] [place] [address] Dr. Jose Luis Diaz ALT [Catalytic activity/Vol] 23 U/L Normal 14-59 [facility] Comment on above: Performed By: #### L IPID, CMP #### [facility] [address] [place] [address] Dr. Jose Luis Diaz Anion gap [Moles/Vol] 10.9 mmol/L Normal [facility] Comment on above: Performed By: #### L IPID, CMP #### [facility] [address] [place] [address] Dr. Jose Luis Diaz AST [Catalytic activity/Vol] 16 U/L Normal 15-37 [facility] Comment on above: Performed By: #### L IPID, CMP #### [facility] [address] [place] [address] Dr. Jose Luis Diaz Bilirubin [Mass/Vol] 0.4 mg/dL Normal 0.2-1.0 [facility] Comment on above: Performed By: #### L IPID, CMP #### [facility] [address] [place] [address] Dr. Jose Luis Diaz Calcium [Mass/Vol] 9.4 mg/dL Normal 8.5-10.1 [facility] Comment on above: Performed By: #### L IPID, CMP #### [facility] [address] [place] [address] Dr. Jose Luis Diza Chloride [Moles/Vol] 101 mmol/L Normal 98-107 [facility] Comment on above: Performed By: #### L IPID, CMP #### [facility] [address] [place] [address] Dr. Jose Luis Diaz CO2 [Moles/Vol] 29.2 mmol/L Normal 21.0-32.0 [facility] Comment on above: Performed By: #### L IPID, CMP #### [facility] [address] [place] [address] Dr. Jose Luis Diaz Creatinine [Mass/Vol] 0.80 mg/dL Normal 0.55-1.02 [facility] Comment on above: Performed By: #### L IPID, CMP #### [facility] [address] [place] [address] Dr. Jose Luis Diaz EGFR-AF PALESTINIAN >60 Normal >=60 [facility] Comment on above: Performed By: #### L IPID, CMP #### [facility] [address] [place] [address] Dr. Jose Luis Diaz EGFR-NON AF PALESTINIAN >60 Normal >=60 [facility] Comment on above: Performed By: #### L IPID, CMP #### [facility] [address] [place] [address] Dr. Jose Luis Diaz Globulin (S) [Mass/Vol] 4.3 g/dL Normal [facility] Comment on above: Performed By: #### L IPID, CMP #### [facility] [address] [place] [address] Dr. Jose Luis Diaz Glucose [Mass/Vol] 129 mg/dL Critically high 74-106 [facility] Comment on above: Performed By: #### L IPID, CMP #### [facility] [address] [place] [address] Dr. Jose Luis Diaz Potassium [Moles/Vol] 4.1 mmol/L Normal 3.5-5.1 [facility] Comment on above: Performed By: #### L IPID, CMP #### [facility] [address] [place] [address] Dr. Jose Luis Diaz Protein [Mass/Vol] 7.9 g/dL Normal 6.4-8.2 [facility] Comment on above: Performed By: #### L IPID, CMP #### [facility] [address] [place] [address] Dr. Jose Luis Diaz Sodium [Moles/Vol] 137 mmol/L Normal 136-145 [facility] Comment on above: Performed By: #### L IPID, CMP #### [facility] [address] [place] [address] Dr. Jose Luis Diaz Urea nitrogen [Mass/Vol] 12.0 mg/dL Normal 7.0-18.0 [facility] Comment on above: Performed By: #### L IPID, CMP #### [facility] [address] [place] [address] Dr. Jose Luis Diaz Urea nitrogen/Creatinine [Mass ratio] 15.0 mg/mg Normal [facility] Comment on above: Performed By: #### L IPID, CMP #### [facility] [address] [place] [address] Dr. Jose Luis Diaz XR ankle RT min 3V*on 2021 XR ankle RT min 3V* [facility] [employer] Other XR ankle RT min 3V* [facility] [employer] Other XR ankle RT min 3V* 1111 [facility] [employer] Other XR ankle RT min 3V* [place] [address] [facility] [employer] Other XR ankle RT min 3V* XRay Report [facility] [employer] Other XR ankle RT min 3V* Signed [employer] Other XR ankle RT min 3V* Patient: Ya Womack MR#: [id number] [facility] [employer] Other XR ankle RT min 3V* 671 [employer] Other XR ankle RT min 3V* : 1965 Acct:[id number] [employer] Other XR ankle RT min 3V* Age/Sex: 56 / F ADM Date: 07/18/21 [employer] Other XR ankle RT min 3V* Loc: XDUCLY Room: Type: [facility] [employer] Other XR ankle RT min 3V* Attending Dr: Carol CORTEZ [employer] Other XR ankle RT min 3V* Ordering Provider: DANA Che [employer] Other XR ankle RT min 3V* Date of Service: 07/18/21 [employer] Other XR ankle RT min 3V* XR/XR ankle RT min 3V*: Acute right ankle pain [employer] Other XR ankle RT min 3V* Copies to: DAILY CheC [employer] Other XR ankle RT min 3V* RIGHT ANKLE - 3 views [employer] Other XR ankle RT min 3V* CLINICAL HISTORY: Patient with right ankle 3 days ago walking down steps. Lateral ankle pain. [employer] Other XR ankle RT min 3V* COMPARISON: None [employer] Other XR ankle RT min 3V* FINDINGS: [employer] Other XR ankle RT min 3V* Soft tissue swelling . Chip fracture lateral malleolus. Ankle mortise appears intact. Plantar [employer] Other XR ankle RT min 3V* spurring. [employer] Other XR ankle RT min 3V* XR/XR ankle RT min 3V* [employer] Other XR ankle RT min 3V* IMPRESSION: [employer] Other XR ankle RT min 3V* CHIP FRACTURE LATERA L MALLEOLUS WITH SOFT TISSUE SWELLING. [employer] Other XR ankle RT min 3V* Impression dictated by: Aidan Grullon Jr., D.OVinh07/18/2021 12:03 PM [employer] Other XR ankle RT min 3V* Dictation Location: RADIO-PC-13 [employer] Other XR ankle RT min 3V* Transcribed By: PWS 07/18/21 1203 [employer] Other XR ankle RT min 3V* Dictated By: Aidan Grullon Jr, DO 07/18/21 1203 [employer] Other XR ankle RT min 3V* Signed By: [employer] Other XR ankle RT min 3V* 07/18/21 1203 No [employer] Other [facility] 05-01-2021 Albumin [Mass/Vol] 4.4 g/dL Normal 3.6-5.1 [facility] Comment on above: Performed By: #### 1 0231, 7600 #### [facility] of [address], [address] [place] [address] Project Assistant: Pedrito Fontaine MD Albumin/Globulin [Mass ratio] 1.6 {ratio} Normal 1.0-2.5 [facility] Comment on above: Performed By: #### 1 023, 7600 #### [facility] of [address], [address] [place] [address] Project Assistant: Pedrito Fontaine MD ALP [Catalytic activity/Vol] 63 U/L Normal 37-153 [facility] Comment on above: Performed By: #### 1 023, 7600 #### [facility] of [address] [address] Project Assistant: Pedrito Fontaine MD ALT [Catalytic activity/Vol] 17 U/L Normal 6-29 [facility] Comment on above: Performed By: #### 1 023, 7600 #### [facility] of [address] [address] Project Assistant: Pedrito Fontaine MD AST [Catalytic activity/Vol] 18 U/L Normal 10-35 [facility] Comment on above: Performed By: #### 1 0231, 7600 #### [facility] of [address] [address] Project Assistant: Pedrito Fontaine MD Bilirubin [Mass/Vol] 0.4 mg/dL Normal 0.2-1.2 [facility] Comment on above: Performed By: #### 1 0231, 7600 #### [facility] of [address] [address] Project Assistant: Pedrito Fontaine MD BUN/CREATININE RATIO NOT APPLICABLE Normal 6-22 [facility] Comment on above: Performed By: #### 1 0231, 7600 #### [facility] of [address], [address] [place] [address] Project Assistant: Pedrito Fontaine MD Calcium [Mass/Vol] 9.7 mg/dL Normal 8.6-10.4 [facility] Comment on above: Performed By: #### 1 0231, 7600 #### [facility] [address] [address] Project Assistant: Pedrito Fontaine MD Chloride [Moles/Vol] 104 mmol/L Normal 98-110 [facility] Comment on above: Performed By: #### 1 023, 7600 #### [facility] [address] [address] Project Assistant: Pedrito Fontaine MD CO2 [Moles/Vol] 27 mmol/L Normal 20-32 [facility] Comment on above: Performed By: #### 1 023, 7600 #### [facility] [address] [address] Project Assistant: Pedrito Fontaine MD Creatinine [Mass/Vol] 0.69 mg/dL Normal 0.50-1.05 [facility] Comment on above: Result Comment: For patients >49 years of age, the reference limit for Creatinine is approximately 13% higher for people identified as -Lao. Performed By: #### 1 023, 7600 #### [facility] [address] [address] Project Assistant: Pedrito Fontaine MD eGFR NON-AFR. PALESTINIAN 97 mL/min/1.73m2 Normal > OR = 60 [facility] Comment on above: Performed By: #### 1 0231, 7600 #### [facility] [address] [address] Project Assistant: Pedrito Fontaine MD GFR/1.73 sq M.predicted among blacks MDRD (S/P/Bld) [Vol rate/Area] 112 mL/min/{1.73_m2} Normal > OR = 60 [facility] Comment on above: Performed By: #### 1 0231, 7600 #### [facility] [address] [address] Project Assistant: Pedrito Fontaine MD Globulin (S) [Mass/Vol] 2.8 g/dL Normal 1.9-3.7 [facility] Comment on above: Performed By: #### 1 023, 7600 #### [facility] [address] [address] Project Assistant: Pedrito Fontaine MD Glucose [Mass/Vol] 104 mg/dL High 65-99 [facility] Comment on above: Result Comment: Fasting reference interval For someone without known diabetes, a glucose value between 100 and 125 mg/dL is consistent with prediabetes and should be confirmed with a follow-up test. Performed By: #### 1 023, 7600 #### [facility] [address] [address] Project Assistant: Pedrito Fontaine MD Potassium [Moles/Vol] 4.8 mmol/L Normal 3.5-5.3 [facility] Comment on above: Performed By: #### 1 023, 0 #### [facility] [address] [address] Project Assistant: Pedrito Fontaine MD Protein [Mass/Vol] 7.2 g/dL Normal 6.1-8.1 [facility] Comment on above: Performed By: #### 1 023, 7600 #### [facility] [address] [address] Project Assistant: Pedrito Fontaine MD Sodium [Moles/Vol] 143 mmol/L Normal 135-146 [facility] Comment on above: Performed By: #### 1 023, 7600 #### [facility] [address] [address] Project Assistant: Pedrito Fontaine MD Urea nitrogen [Mass/Vol] 16 mg/dL Normal 7-25 [facility] Comment on above: Performed By: #### 1 0231, 7600 #### [facility] [address], [address] [place] [address] Project Assistant: Pedrito Fontaine MD LIPID PANEL, [facility] 04-09 Cholesterol [Mass/Vol] 195 mg/dL Normal <200 [facility] Comment on above: Order Comment: FASTI NG:YES FASTING: YES Performed By: #### 1 0231, 7600 #### [facility] [address], [address] [place] [address] Project Assistant: Pedrito Fontaine MD Cholesterol in HDL [Mass/Vol] 63 mg/dL Normal > OR = 50 [facility] Comment on above: Order Comment: FASTI NG:YES FASTING: YES Performed By: #### 1 0231, 7600 #### [facility] [address], [address] [place] [address] Project Assistant: ePdrito Fontaine MD Cholesterol in LDL [Mass/Vol] 101 [...] LDL-C. Keven CANNON et al. JOSEPH. 2013;310(19): 2815-8388 (http://education.fotobabble.[employer]/faq/MYV899) Performed By: #### 1 0231, 7600 #### [facility] [address], [address] [place] [address] Project Assistant: Pedrito Fontaine MD Cholesterol.total/C holesterol in HDL [Mass ratio] 3.1 {ratio} Normal <5.0 [facility] Comment on above: Order Comment: FASTI NG:YES FASTING: YES Performed By: #### 1 0231, 7600 #### [facility] [address], [address] [place] [address] Project Assistant: Pedrito Fontaine MD NON HDL CHOLESTEROL 132 mg/dL (calc) High <130 [facility] Comment on above: Order Comment: FASTI NG:YES FASTING: YES Result Comment: For patients with diabetes plus 1 major ASCVD risk factor, treating to a non-HDL-C goal of <100 mg/dL (LDL-C of <70 mg/dL) is considered a therapeutic option. Performed By: #### 1 0231, 7600 #### [facility] [address] [address] Project Assistant: Pedrito Fontaine MD Triglyceride [Mass/Vol] 192 mg/dL High <150 [facility] Comment on above: Order Comment: FASTI NG:YES FASTING: YES Performed By: #### 1 0231, 7600 #### [facility] [address] [address] Project Assistant: Pedrito Fontaine MD [facility] 10-09-2020 Albumin [Mass/Vol] 4.2 g/dL Normal 3.6-5.1 [facility] Comment on above: Performed By: #### 1 0231, 7600 #### [facility] [address] [address] Project Assistant: Perdito Fontaine MD Albumin/Globulin [Mass ratio] 1.6 {ratio} Normal 1.0-2.5 [facility] Comment on above: Performed By: #### 1 0231, 7600 #### [facility] [address] [address] Project Assistant: Pedrito Fontaine MD ALP [Catalytic activity/Vol] 56 U/L Normal 37-153 [facility] Comment on above: Performed By: #### 1 0231, 7600 #### [facility] [address] [address] Project Assistant: Pedrito Fontaine MD ALT [Catalytic activity/Vol] 7 U/L Normal 6-29 [facility] Comment on above: Performed By: #### 1 0231, 7600 #### [facility] [address] [address] Project Assistant: Pedrito Fontaine MD AST [Catalytic activity/Vol] 10 U/L Normal 10-35 [facility] Comment on above: Performed By: #### 1 0231, 7600 #### [facility] [address] [place] [address] Project Assistant: Pedrito Fontaine MD Bilirubin [Mass/Vol] 0.3 mg/dL Normal 0.2-1.2 [facility] Comment on above: Performed By: #### 1 0231, 7600 #### [facility] of [address] [place] [address] Project Assistant: Pedrito Fontaine MD BUN/CREATININE RATIO NOT APPLICABLE Normal 6-22 [facility] Comment on above: Performed By: #### 1 0231, 7600 #### [facility] [address] [place] [address] Project Assistant: Pedrito Fontaine MD Calcium [Mass/Vol] 9.3 mg/dL Normal 8.6-10.4 [facility] Comment on above: Performed By: #### 1 0231, 7600 #### [facility] of [address] [place] [address] Project Assistant: Pedrito Fontaine MD Chloride [Moles/Vol] 101 mmol/L Normal 98-110 [facility] Comment on above: Performed By: #### 1 0231, 7600 #### [facility] [address] [place] [address] Project Assistant: Pedrito Fontaine MD CO2 [Moles/Vol] 27 mmol/L Normal 20-32 [facility] Comment on above: Performed By: #### 1 0231, 7600 #### [facility] of [address] [address] Project Assistant: Pedrito Fontaine MD Creatinine [Mass/Vol] 0.67 mg/dL Normal 0.50-1.05 [facility] Comment on above: Result Comment: For patients >49 years of age, the reference limit for Creatinine is approximately 13% higher for people identified as -Lao. Performed By: #### 1 023, 7600 #### [facility] [address] [address] Project Assistant: Pedrito Fontaine MD eGFR NON-AFR. PALESTINIAN 98 mL/min/1.73m2 Normal > OR = 60 [facility] Comment on above: Performed By: #### 1 023, 7600 #### [facility] [address] [place] [address] Project Assistant: Pedrito Fontaine MD GFR/1.73 sq M.predicted among blacks MDRD (S/P/Bld) [Vol rate/Area] 114 mL/min/{1.73_m2} Normal > OR = 60 [facility] Comment on above: Performed By: #### 1 023, 7600 #### [facility] [address] [place] [address] Project Assistant: Pedrito Fontaine MD Globulin (S) [Mass/Vol] 2.6 g/dL Normal 1.9-3.7 [facility] Comment on above: Performed By: #### 1 023, 7600 #### [facility] [address] [place] [address] Project Assistant: Pedrito Fontaine MD Glucose [Mass/Vol] 88 mg/dL Normal 65-99 [facility] Comment on above: Result Comment: Fasting reference interval Performed By: #### 1 023, 7600 #### [facility] [address] [place] [address] Project Assistant: Pedrito Fontaine MD Potassium [Moles/Vol] 4.7 mmol/L Normal 3.5-5.3 [facility] Comment on above: Performed By: #### 1 023, 7600 #### [facility] [address] [place] [address] Project Assistant: Pedrito Fontaine MD Protein [Mass/Vol] 6.8 g/dL Normal 6.1-8.1 [facility] Comment on above: Performed By: #### 1 0231, 7600 #### [facility] of [address], [address] [place] [address] Project Assistant: Pedrito Fontaine MD Sodium [Moles/Vol] 139 mmol/L Normal 135-146 [facility] Comment on above: Performed By: #### 1 0231, 7600 #### [facility] [address], [address] [place] [address] Project Assistant: Pedrito Fontaine MD Urea nitrogen [Mass/Vol] 22 mg/dL Normal 7-25 [facility] Comment on above: Performed By: #### 1 0231, 7600 #### [facility] of [address] [place] [address] Project Assistant: Pedrito Fontaine MD LIPID PANEL, [facility] 08-0 Cholesterol [Mass/Vol] 210 mg/dL High <200 [facility] Comment on above: Performed By: #### 1 0231, 7600 #### [facility] of [address], [address] [place] [address] Project Assistant: Pedrito Fontaine MD Cholesterol in HDL [Mass/Vol] 59 mg/dL Normal > OR = 50 [facility] Comment on above: Performed By: #### 1 0231, 7600 #### [facility] [address] [place] [address] Project Assistant: Pedrito Fontaine MD Cholesterol in LDL [Mass/Vol] [...] LDL-C. Keven CANNON et al. JOSEPH. 2013;310(19): 9980-0010 (http://education.fotobabble.[employer]/faq/PEO614) Performed By: #### 1 0231, 7600 #### [facility] [address], [address] [place] [address] Project Assistant: Pedrito Fontaine MD Cholesterol.total/C holesterol in HDL [Mass ratio] 3.6 {ratio} Normal <5.0 [facility] Comment on above: Performed By: #### 1 0231, 7600 #### [facility] [address], [address] [place] [address] Project Assistant: Pedrito Fontaine MD NON HDL CHOLESTEROL 151 mg/dL (calc) High <130 [facility] Comment on above: Result Comment: For patients with diabetes plus 1 major ASCVD risk factor, treating to a non-HDL-C goal of <100 mg/dL (LDL-C of <70 mg/dL) is considered a therapeutic option. Performed By: #### 1 023, 7600 #### [facility] [address], [address] [place] [address] Project Assistant: Pedrito Fontaine MD Triglyceride [Mass/Vol] 179 mg/dL High <150 [facility] Comment on above: Performed By: #### 1 023, 7600 #### [facility] [address] [place] [address] Project Assistant: Pedrito Fontaine MD KNEE LEFT 3 Son 03-10-2019 KNEE LEFT 3 [facility] [address] [place] [id number] Patient Name: YA WOMACK : 1965 Sex: F Age: Race: White Pt. Location: Patient Status: O Ordered Date: 03/10/2019 3:35:00 PM Completed Date: 03/10/2019 03:37 PM Requesting Provider: RISA HAYWOOD Attending Provider: RISA HAYWOOD Report Copy To: Signs & Symptoms: M25.562 Pain in left knee I10 History: [place] Comments: , Views (X-RAY, KNEE): AP, Lateral, [place] , Weight Bearing?: Y , Views (X-RAY, KNEE): AP, Lateral, [place] , Weight Bearing?: Y , , , Ordering Provider - RISA HAYWOOD PA-C , Exam: KNEE LEFT 3 VWS KNEE LEFT 3 S 03/10/2019 3:37 PM EST SIGNS AND SYMPTOMS: M25.562 Pain in left knee I10 TECHNOLOGIST COMMENTS: pt states having bilateral knee pain post fall 10 days ago QUESTION FOR THE RADIOLOGIST: , Views (X-RAY, KNEE): AP, Lateral, [place] , Weight Bearing?: Y , Views (X-RAY, KNEE): AP, Lateral, [place] , Weight Bearing?: Y , , , [...] 7017. Electronically signed by:Gini Martin. Transcribed by: [email or web address], User Resident: Electronically Signed by: GINI MARTIN @ 03/10/2019 03:48 PM Normal [facility] Comment on above: Order Comment: , Gi ws (X-RAY, KNEE): AP, Lateral, [place] , Weight Bearing?: Y , Views (X-RAY, KNEE): AP, Lateral, [place] , Weight Bearing?: Y , , , Ordering Provider - RISA HAYWOOD PA-C , KNEE RIGHT 3 VWSon 0 KNEE RIGHT 3 VWS [facility] [address] [place] [id number] Patient Name: YA WOMACK : 1965 Sex: F Age: Race: White Pt. Location: Patient Status: O Ordered Date: 03/10/2019 3:35:00 PM Completed Date: 03/10/2019 03:37 PM Requesting Provider: RISA HAYWOOD Attending Provider: RISA HAYWOOD Report Copy To: Signs & Symptoms: M25.561 Pain in right knee I10 History: [place] Comments: , Views (X-RAY, KNEE): AP, Lateral, [place] , Weight Bearing?: Y , Views (X-RAY, KNEE): AP, Lateral, [place] , Weight Bearing?: Y , , , Ordering Provider - RISA HAYOWOD PA-C , Exam: KNEE RIGHT 3 VWS KNEE RIGHT 3 VWS 03/10/2019 3:37 PM EST SIGNS AND SYMPTOMS: M25.561 Pain in right knee I10 TECHNOLOGIST COMMENTS: pt states having bilateral knee pain post fall 10 days ago QUESTION FOR THE RADIOLOGIST: , Views (X-RAY, KNEE): AP, Lateral, [place] , Weight Bearing?: Y , Views (X-RAY, KNEE): AP, Lateral, [place] , Weight Bearing?: Y , , , [...] 05/12/2017 Electronically signed by:Gini Martin. Transcribed by: [email or web address], User Resident: Electronically Signed by: GINI MARTIN @ 03/10/2019 03:49 PM Normal [facility] Comment on above: Order Comment: , Vie ws (X-RAY, KNEE): AP, Lateral, [place] , Weight Bearing?: Y , Views (X-RAY, KNEE): AP, Lateral, [place] , Weight Bearing?: Y , , , Ordering Provider - RISA HAYWOOD PA-C , Vital Signs Date Time Vital Sign Value Performing Clinician Facility 06-12-2024 09:35-0400 Body height 167.64 cm [employer] DO Work Phone: [facility] 06-12-2024 09:35-0400 Body mass index (BMI) [Ratio] 36.8 kg/m2 Harlan Word[employer] DO Work Phone: [facility] 06-12-2024 09:35-0400 Body temperature 98 [degF] Harlan [employer]elong DO Work Phone: [facility] 06-12-2024 09:35-0400 Body weight 103.41 kg Harlan [employer] DO Work Phone: [facility] 06-12-2024 09:35-0400 Diastolic blood pressure 75 mm[Hg] Harlan Furlong DO Work Phone: [facility] 06-12-2024 09:35-0400 Heart rate 82 /min Harlan Furlong DO Work Phone: [facility] 06-12-2024 09:35-0400 Respiratory rate 18 /min Harlan Furlong DO Work Phone: [facility] 06-12-2024 09:35-0400 SaO2% (BldA) [Mass fraction] 98 % Harlan Furlong DO Work Phone: [facility] 06-12-2024 09:35-0400 Systolic blood pressure 117 mm[Hg] Harlan Furlong DO Work Phone: [facility] 12-21-2023 10:08-0400 Body height 167.6 cm Mac Dawna DO Work Phone: [facility] 12-21-2023 10:08-0400 Body mass index (BMI) [Ratio] 32.83 kg/m2 Mac Dawna DO Work Phone: [facility] 12-21-2023 10:08-0400 Body weight 92.26 kg Mac Dawna DO Work Phone: [facility] 12-21-2023 10:08-0400 Diastolic blood pressure 86 mm[Hg] Mac Dawna DO Work Phone: [facility] 12-21-2023 10:08-0400 Heart rate 82 /min Mac Dawna DO Work Phone: [facility] 12-21-2023 10:08-0400 SaO2% (BldA) [Mass fraction] 97 % Mac Dawna DO Work Phone: [facility] 12-21-2023 10:08-0400 Systolic blood pressure 124 mm[Hg] Mac Dawna DO Work Phone: [facility] 04-23-2023 10:51-0500 Body height 167.64 cm [facility] 04-23-2023 10:51-0500 Body mass index (BMI) [Ratio] 49.2 kg/m2 [facility] 04-23-2023 10:51-0500 Body temperature 98.5 [degF] [facility] 04-23-2023 10:51-0500 Body weight 138.34 kg [facility] 04-23-2023 10:51-0500 Diastolic blood pressure 77 mm[Hg] [facility] 04-23-2023 10:51-0500 Heart rate 86 /min [facility] 04-23-2023 10:51-0500 Respiratory rate 18 /min [facility] 04-23-2023 10:51-0500 SaO2% (BldA) [Mass fraction] 98 % [facility] 04-23-2023 10:51-0500 Systolic blood pressure 128 mm[Hg] [facility] 03-16-2023 12:58-0500 Body height 167.6 cm Fercho Ham MD Work Phone: [facility] 03-16-2023 12:58-0500 Body mass index (BMI) [Ratio] 51.88 kg/m2 Fercho Ham MD Work Phone: [facility] 03-16-2023 12:58-0500 Body temperature 96.21 [degF] Fercho Ham MD Work Phone: [facility] 03-16-2023 12:58-0500 Body weight 145.79 kg Fercho Ham MD Work Phone: [facility] 02-25-2023 15:38-0500 Body temperature 97.7 [degF] Clayton Hawley MD Work Phone: [facility] 02-25-2023 15:38-0500 Diastolic blood pressure 77 mm[Hg] Clayton Hawley MD Work Phone: [facility] 02-25-2023 15:38-0500 Heart rate 81 /min Clayton Hawley MD Work Phone: [facility] 02-25-2023 15:38-0500 Respiratory rate 16 /min Clayton Hawley MD Work Phone: [facility] 02-25-2023 15:38-0500 SaO2% (BldA) [Mass fraction] 92 % Clayton Hawley MD Work Phone: [facility] 02-25-2023 15:38-0500 Systolic blood pressure 143 mm[Hg] Clayton Hawley MD Work Phone: [facility] 02-24-2023 00:00-0500 Body mass index (BMI) [Ratio] 54.05 kg/m2 Clayton Hawley MD Work Phone: [facility] 02-24-2023 00:00-0500 Body weight 151.9 kg Clayton Hawley MD Work Phone: [facility] 02-22-2023 06:35-0500 Body height 167.6 cm Clayton Hawley MD Work Phone: [facility] 10-08-2022 10:10-0400 Body height 172.72 cm Harmony Khan Other [facility] Other 10-08-2022 10:10-0400 Body mass index (BMI) [Ratio] 51.9 kg/m2 Harmony Khan Other [facility] Other 10-08-2022 10:10-0400 Body temperature 97.8 [degF] Harmony Khan Other [facility] Other 10-08-2022 10:10-0400 Body weight 154.86 kg Harmony Khan Other [facility] Other 10-08-2022 10:10-0400 Diastolic blood pressure 85 mm[Hg] Harmony Khan Other [facility] Other 10-08-2022 10:10-0400 Respiratory rate 18 /min Harmony Khan Other [facility] Other 10-08-2022 10:10-0400 SaO2% (BldA) [Mass fraction] 95 % Harmony Khan Other [facility] Other 10-08-2022 10:10-0400 Systolic blood pressure 137 mm[Hg] Harmony Khan Other [facility] Other 09-12-2022 11:15-0400 Body height 172.72 cm Carol Bellemond Other [facility] Other 09-12-2022 11:15-0400 Body mass index (BMI) [Ratio] 52.15 kg/m2 Carol Bellemond Other [facility] Other 09-12-2022 11:15-0400 Body temperature 98.1 [degF] Carol Bellemond Other [facility] Other 09-12-2022 11:15-0400 Body weight 155.58 kg Carol Bellemond Other [facility] Other 09-12-2022 11:15-0400 Diastolic blood pressure 73 mm[Hg] Carol Faye Other [facility] Other 09-12-2022 11:15-0400 Respiratory rate 18 /min Carol Faye Other [facility] Other 09-12-2022 11:15-0400 SaO2% (BldA) [Mass fraction] 92 % Carol Mckinney Other [facility] Other 09-12-2022 11:15-0400 Systolic blood pressure 143 mm[Hg] Carol Mckinney Other [facility] Other 07-18-2021 12:20-0400 Body height 172.72 cm Carol Mckinney Other [facility] Other 07-18-2021 12:20-0400 Body mass index (BMI) [Ratio] 51.69 kg/m2 Carol Mckinney Other [facility] Other 07-18-2021 12:20-0400 Body temperature 96.9 [degF] Carol Mckinney Other [facility] Other 07-18-2021 12:20-0400 Body weight 154.22 kg Carol Mckinney Other [facility] Other 07-18-2021 12:20-0400 Respiratory rate 16 /min Carol Mckinney Other [facility] Other 07-18-2021 12:20-0400 SaO2% (BldA) [Mass fraction] 98 % Carol Mckinney Other [facility] Other Encounters Encounter Date Encounter Type Care Provider Facility Start: 07-06-2024 End: 07-06-2024 [facility] Gomez NP Work Phone: [facility] Start: 07-06-2024 End: 07-06-2024 [facility] Gomez NP Work Phone: [facility] Start: 07-06-2024 End: 07-06-2024 Office outpatient visit 25 minutes Meño Gomez NP Work Phone: [facility] Comment on above: Primary osteoarthrit is of left knee (Primary Dx); Chronic pain of left knee; Chronic pain of right knee; Primary osteoarthritis of right knee Start: 07-06-2024 End: 07-06-2024 ambulatory MEÑO GOMEZ Not Available Start: 06-26-2024 ambulatory Deepak Schaffer acility:[facility] Start: 06-12-2024 End: 06-12-2024 ambulatory Harlan Furlong DO Work Phone: [facility] Work Phone: Start: 06-12-2024 End: 06-12-2024 Patient encounter procedure Harlanash Adamsng DO Work Phone: [facility] Work Phone: Start: 06-01-2024 Registered Recurring Harlan pruettong DO Work Phone: [facility] Start: 03-16-2024 End: 03-16-2024 Bamboo flowsheet Meño Gomez NP Work Phone: [facility] Start: 03-16-2024 End: 03-16-2024 Bamboo flowsheet Meño Gomez NP Work Phone: [facility] Start: 03-16-2024 End: 03-16-2024 Office outpatient visit 25 minutes Meño Gomez NP Work Phone: [facility] Comment on above: Primary osteoarthrit is of right knee (Primary Dx); Primary osteoarthritis of left knee; Chronic pain of right knee; Chronic pain of left knee Start: 03-16-2024 End: 03-16-2024 ambulatory MEÑO GOMEZ Not Available Start: 01-20-2024 End: 01-20-2024 ambulatory [facility] Start: 01-20-2024 End: 01-20-2024 ambulatory LEONCIO BINGHAM [facility] Start: 12-21-2023 End: 12-21-2023 Bamboo flowsheet Mac Toney DO Work Phone: [facility] Start: 12-21-2023 End: 12-21-2023 Bamboo flowsheet Mac Toney DO Work Phone: [facility] Start: 12-21-2023 End: 12-21-2023 Clinisync Result Encounter Mac Toney DO Work Phone: [facility] Department Unsolicited Start: 12-21-2023 End: 12-21-2023 Office outpatient visit 25 minutes Meño Gomez CAROUSEL OPERATOR Work Phone: [facility] Comment on above: Primary osteoarthrit is of left knee (Primary Dx); Left knee pain, unspecified chronicity Start: 12-21-2023 End: 12-21-2023 ambulatory MEÑO GOMEZ Not Available Start: 12-21-2023 End: 12-21-2023 Office outpatient visit 25 minutes Mac Toney DO Work Phone: [facility] Comment on above: Anemia, unspecified type (Primary Dx); Tremor, essential; Restless leg; Obstructive sleep apnea; Primary insomnia Start: 12-21-2023 End: 12-21-2023 ambulatory MAC TONEY Not Available Start: 11-23-2023 End: 11-23-2023 Telephone encounter Clayton Patrick MA [facility] [address] [address] Start: 10-04-2023 End: 10-04-2023 ambulatory TAWANNA STERNJammie Not Available Start: 09-24-2023 End: 09-24-2023 ambulatory HARLAN ALMEIDA [facility] Start: 07-22-2023 End: 07-22-2023 ambulatory [facility] Start: 07-08-2023 End: 07-08-2023 ambulatory FERCHO Kevin [facility] Start: 07-06-2023 End: 07-06-2023 ambulatory [facility] Start: 05-18-2023 End: 05-18-2023 ambulatory BRANDON J [facility] Start: 04-23-2023 End: 04-23-2023 ambulatory [facility] Work Phone: Start: 04-23-2023 End: 04-23-2023 Patient encounter procedure [facility] Work Phone: Start: 03-24-2023 End: 03-24-2023 ambulatory HARLAN G [facility] Start: 03-16-2023 End: 03-16-2023 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) Start: 02-22-2023 End: 02-25-2023 Evaluation and management of inpatient Clayton Hawley MD Work Phone: [facility] [place] [facility] Comment on above: CSF leak (Primary Dx ); Post-op pain Start: 02-17-2023 End: 02-17-2023 ambulatory [facility] Start: 02-17-2023 End: 02-17-2023 Encounter for other preprocedural examination [facility] Start: 02-02-2023 End: 02-02-2023 ambulatory [facility] Start: 01-18-2023 End: 01-18-2023 Office outpatient new 30 minutes Clayton Hawley MD Work Phone: [facility] Comment on above: CSF leak (Primary Dx ) Start: 01-18-2023 End: 01-19-2023 ambulatory CLAYTON HAWLEY [facility] Start: 01-07-2023 End: 01-07-2023 ambulatory FERCHO HAM [facility] Start: 12-24-2022 End: 12-24-2022 ambulatory FERCHO Brown JITENDRA [facility] Start: 10-08-2022 End: 10-08-2022 ambulatory Harmony Khan Other [facility] Other Start: 10-08-2022 Office outpatient vi sit 25 minutes Harmony Khan [facility] Start: 09-12-2022 Office outpatient vi sit 15 minutes Carol Mckinney [facility] Start: 09-12-2022 End: 09-12-2022 ambulatory DO Harlan Jennifermaxineng Work Phone: [facility] Other Start: 09-12-2022 End: 09-12-2022 Patient encounter procedure DO Harlanash Rodriguezlong Work Phone: [facility] Work Phone: Start: 07-28-2022 Registered Recurring DO Harlan Furlong Work Phone: [facility] Start: 12-12-2021 End: 12-13-[address] HARLAN ALMEIDA Facility:[facility] Start: 11-24-2021 End: 11-25-[address] OLAF ANGUIANO Facility:[facility] Start: 07-18-2021 End: 07-18-2021 ambulatory Carol Mckinney Other [facility] Other Start: 07-18-2021 Office outpatient vi sit 15 minutes Carol Mckinney [facility] Start: 01-01-[address] MAC Clevelandi ty:H1 Procedures Date Procedure Procedure Detail Performing Clinician Start: 07-06-2024 Arthrocentesis aspir &/inj major jt/bursa w/o us Meño T Luis Miguel CAROUSEL OPERATOR Work Phone: Start: 07-06-2024 Arthrocentesis aspir &/inj major jt/bursa w/o us Meño T Luis Miguel CAROUSEL OPERATOR Work Phone: Start: 07-06-2024 Radiologic examinati on knee 1/2 views Meño Gomez CAROUSEL OPERATOR Work Phone: Start: 07-06-2024 Radiologic examinati on knee 1/2 views Meño Gomez CAROUSEL OPERATOR Work Phone: Start: 03-16-2024 Arthrocentesis aspir &/inj major jt/bursa w/o us Meño Gomez CAROUSEL OPERATOR Work Phone: Start: 03-16-2024 Arthrocentesis aspir &/inj major jt/bursa w/o us Meño Gomez CAROUSEL OPERATOR Work Phone: Start: 12-21-2023 Arthrocentesis aspir &/inj major jt/bursa w/o us Meño Gomez CAROUSEL OPERATOR Work Phone: Start: 12-21-2023 [facility] Mac avalos DO Work Phone: Start: 07-08-2023 Follow-up visit Follow-up FERCHO HAM Start: 02-25-2023 DISCHARGE PATIENT TREVOR LAS BAMBAKIDIS [...] 02-23-2023 TRANSFER PATIENT TO NEW UNIT CLAYTON SIMPSONRICHARD Start: 02-23-2023 TRANSFER PATIENT TO NEW UNIT CLAYTON HAWLEY Start: 02-23-2023 CBC W Auto Different ial panel - Blood CLAYTON JUWAN Start: 02-23-2023 Magnesium [Mass/volu me] in Serum or Plasma CLAYTON HENDRICKSONLEONORA Start: 02-23-2023 RENAL FUNCTION PANEL NI CHOLMADIE JUWAN Start: 02-23-2023 Renal function panel Ad german Powell MD Work Phone: Start: 02-22-2023 FULL CODE CLAYTON JORDANRICHARD Start: 02-22-2023 WEIGH PATIENT CLAYTON HAWLEY Start: 02-22-2023 CT HEAD WO IV CONTRAST CLAYTONQuynh HAWLEY Start: 02-22-2023 Ct head/brain w/o co ntrast [...] panel - Blood by Automated count CLAYTON HAWELY Start: 02-17-2023 COAGULATION SCREEN TRAV MARTINEZ JUWAN [...] 09-12-2022 X-ray of left foot DO D yudyash Rodriguezstanley Work Phone: Plan of Treatment Date Care Activity Detail Author Start: 04-25-2030 DTaP/Tdap/Td Vaccine s (2 - Tdap) DTaP/Tdap/Td Vaccines (2 - Tdap) [facility] Start: 07-10-2024 End: 07-10-2024 Patient encounter procedure 07/10/2024 2:30 PM EDT Office Visit [facility] [address] [place] [phone] Meño Gomez, CAROUSEL OPERATOR [address] [place] [address] [facility] Start: 07-06-2024 End: 07-06-2024 Patient encounter procedure 07/06/2024 2:00 PM EDT Office Visit [facility] [address] [place] [phone] Meño Gomez, CAROUSEL OPERATOR [address] [place] [address] Acute pain of left knee [facility] Comment on above: Acute pain of left k nee Start: 03-16-2024 End: 03-16-2024 Patient encounter procedure 03/16/2024 8:30 AM EST Office Visit [facility] [address] [place] [phone] Meño Gomez, CAROUSEL OPERATOR [address] [place] [address] Arrived [facility] Comment on above: Arrived Start: 02-17-2024 End: 02-17-2024 Patient encounter procedure 02/17/2024 1:30 PM EST [facility] [address] [place] [address] Mac Toney DO [address] [place], [place] [id number] [facility] Start: 12-28-2023 End: 12-28-2023 Patient encounter procedure 12/28/2023 1:15 PM EDT Office Visit [facility] [address] [place] [phone] Meño Gomez, [place] [address] [facility] Start: 12-27-2023 End: 12-27-2023 Patient encounter procedure 12/27/2023 1:00 PM EDT [facility] [address] [address] [place] [address] Tawanna Estrella NP [address] [place], [place] [facility] Start: 12-21-2023 End: 12-20-2024 Ferritin [Mass/volume] in Serum or Plasma Ferritin Lab Routine Anemia, unspecified type Expected: 12/21/2023 (Approximate), Expires: 12/20/2024 [facility] Work Phone: Comment on above: Expected: 12/21/2023 (Approximate), Expires: 12/20/2024 Start: 12-21-2023 End: 12-21-2023 Patient encounter procedure 12/21/2023 1:15 PM EDT Office Visit [facility] [address] [place] [phone] Meño Gomez, [address] [place] [address] [facility] Start: 12-21-2023 End: 12-21-2023 Patient encounter procedure 12/21/2023 10:30 AM EDT Office Visit [facility] [address] [place] [phone] Mac Toney DO [address] [place], [place] [id number] Arrived [facility] Comment on above: Arrived Start: 12-06-2023 End: 12-06-2023 Patient encounter procedure 12/06/2023 8:20 AM EDT Office Visit [facility] [address] [address] [place] [address] Tawanna Estrella, CAROUSEL OPERATOR [address] [place], [place] [facility] [address] Start: 05-19-2023 Hemoglobin A1c measurement Diabetes: Hemoglobin A1C [facility] Start: 05-06-2023 End: 05-06-2023 Patient encounter procedure 05/06/2023 2:00 PM EST Office Visit [place] [address] [address] [facility] [address] [phone] Fercho Ham MD [address] [facility] 1, [address] [address] [facility] 1 Start: 03-11-2023 End: 03-11-2023 Patient encounter procedure 03/11/2023 3:15 PM EST Office Visit [facility] 1 [address] [facility] C[facility] 1 [facility] [address] [place] [phone] Fercho Ham MD [address] [facility] 1, [address] [address] [facility] 1 Start: 2004 Screening for malign ant neoplasm of breast Mammogram [facility] Start: 1985 Screening for malign ant neoplasm of cervix [facility] Start: 1983 Urine screening for protein Diabetes: Urine Protein Screening [facility] Start: 1982 Diabetes mellitus screening Diabetes Screening [facility] Start: 1982 Hepatitis C screening Hepatitis C [facility] Start: 1974 Diabetic foot examination Diabetes: Foot Exam [facility] Start: 1974 Glaucoma screening Diabetes: R etinopathy Screening [facility] Start: 1970 Pneumococcal Vaccine : Pediatrics (0 to 5 Years) and At-Risk Patients (6 to 64 Years) (1 - PCV) Pneumococcal Vaccine: Pediatrics (0 to 5 Years) and At-Risk Patients (6 to 64 Years) (1 - PCV) [facility] Start: 1965 MMR Vaccines (1 of 1 - Standard series) MMR Vaccines (1 of 1 - Standard series) [facility] Start: 1964 COVID-19 Vaccine (#1) COVID-19 Vacci ne (#1) [facility] Start: 1964 HIV screening HIV Screening [facility] Start: 1964 Lipid panel Lipid Panel [facility] Start: 1964 Medicare Annual Wellness Visit Medicare Annual Wellness Visit (AWV) [facility] Start: 1964 Screening for malign ant neoplasm of colon [facility] Electrocardiogram, 12-lead PRN ACS symptoms Electrocardiogram, 12-lead PRN ACS symptoms ECG Routine As needed until discontinued starting 02/22/2023 [facility] Work Phone: Comment on above: As needed until disc ontinued starting 02/22/2023 End: 02-22-2023 Incentive spirometry Instruct Incentive spirometry Instruct Respiratory Care Routine Once for 1 Occurrences starting 02/22/2023 until 02/22/2023 [facility] Service Area Work Phone: Comment on above: Once for 1 Occurrenc es starting 02/22/2023 until 02/22/2023 Immunizations Immunization Date Immunization Notes Care Provider Fa cility 12-11-2022 influenza, injectabl e, quadrivalent, preservative free Clayton Hawley MD Work Phone: [facility] 12-08-2021 influenza, injectabl e, quadrivalent, preservative free Clayton Hawley MD Work Phone: [facility] 02-07-2021 zoster vaccine recombinant Clayton Hawley MD Work Phone: [facility] 12-03-2020 influenza, injectabl e, quadrivalent, preservative free Clayton Hawley MD Work Phone: [facility] 12-03-2020 zoster vaccine recombinant Clayton Hawley MD Work Phone: [facility] 04-25-2020 diphtheria, tetanus toxoids and pertussis vaccine Clayton Hawley MD Work Phone: [facility] 01-12-2020 influenza, injectabl e, quadrivalent, preservative free Clayton Hawley MD Work Phone: [facility] 10-08-2018 influenza, injectabl e, quadrivalent, preservative free Clayton Hawley MD Work Phone: [facility] 12-25-2017 influenza, injectabl e, quadrivalent, preservative free Clayton Hawley MD Work Phone: [facility] 03-18-2017 Influenza, injectabl e, Madin [place] Canine Kidney, preservative free, quadrivalent Clayton Hawley MD Work Phone: [facility] 07-21-2002 hepatitis B vaccine, adult dosage Clayton Hawley MD Work Phone: [facility] Work Phone: 03-03-2002 hepatitis B vaccine, adult dosage Clayton Hawley MD Work Phone: [facility] Work Phone: 01-13-2002 hepatitis B vaccine, adult dosage Clayton Hawley MD Work Phone: [facility] Payers Date Payer Category Payer Self-pay [id number] 2021 Medicaid [employer] MEDICARE A DVANTAGE [id number] 2021 Medicare [id number]. [id number] 1964 Unknown [id number] 2.16.840.1.651994.3.579.2.593 1964 Unknown [id number] 2.16.840.1.984807.3.579.2.593 1964 Unknown [id number] 2.16.840.1.806002.3.579.2.593 1964 Unknown [id number] 2.16.840.1.011580.3.579.2.593 1964 Unknown [id number] 2.16.840.1.250905.3.579.2.593 1964 Unknown [id number] 2.16.840.1.267503.3.579.2.1244 1964 Unknown [id number] 2.16.840.1.592258.3.579.2.1247 1964 Unknown [id number] 2.16.840.1.874831.3.579.2.1247 1964 Unknown [id number] 2.16.840.1.644585.3.579.2.124 1964 Unknown [id number] 2.16.840.1.953838.3.579.2.1246 1964 Unknown [id number] 2.16.840.1.798027.3.579.2.1244 1964 Unknown [id number] 2.16.840.1.854530.3.579.2.1244 1964 Unknown [id number] 2.16.840.1.823361.3.579.2.1244 1964 Unknown [id number] 2.16.840.1.274272.3.579.2.1244 1964 Unknown [id number] 2.16.840.1.486605.3.579.2.1285 1964 Unknown [id number] 2.16.840.1.134072.3.579.2.1285 1964 Unknown [id number] 2.16.840.1.387270.3.579.2.1285 1964 Unknown [id number] 2.16.840.1.736819.3.579.2.1285 1964 Unknown [id number] 2.16.840.1.158789.3.579.2.1285 1964 Unknown [id number] 2.16.840.1.204210.3.579.2.1285 1964 Unknown [id number] 2.16.840.1.221201.3.579.2.128 1964 Unknown [id number] 2.16.840.1.941339.3.579.2.1285 1964 Unknown [id number] 2.16.840.1.328484.3.579.2.1259 1964 Unknown [id number] 2.16.840.1.481725.3.579.2.1259 1964 Unknown [id number] 2.16.840.1.597490.3.579.2.1259 1964 Unknown [id number] 2.16.840.1.034716.3.579.2.9 1964 Unknown [id number] 2.16.840.1.731493.3.579.2.1258 1964 Unknown [id number] 2.16840.1.195285.3.579.2.1258 1964 Unknown [id number] 2.16.840.1.063986.3.579.2.9 1959 Medicare [id number] 2.16.840.1.003630.19 1959 Medicare [id number] Medicare Medicare [id number] Unknown [id number] ODJFS [facility] MEDCAID [id number] Unknown [facility] [id number] Unknown [id number] 2.16.840.1.706127.3.579.2.531 Social History Date Type Detail Facility Unknown if ever smoked [facility] Other Start: 01-07-2023 End: 07-06-2024 Sex Assigned At [facility] Start: 07-18-2020 End: 07-29-2022 Tobacco smoking status NHIS Never smoked tobacco (finding) [facility] Start: 1965 Sex Assigned At Female F [facility] Start: 07-29-2022 End: 12-24-2022 Tobacco use and exposure Smokeless tobacco non-user [facility] Work Phone: Start: 01-07-2023 End: 07-06-2024 History of Social function [facility] Start: 1965 Sex Assigned At Not on file [facility] Work Phone: Start: 01-08-2023 End: 03-16-2023 Exposure to SARS-CoV-2 (event) Not sure [facility] Start: 02-22-2023 End: 03-16-2023 Alcohol intake Current drinker of alcohol (finding) [facility] Work Phone: How often to you hav e a drink containing alcohol? Never [facility] How many standard drinks containing alcohol do you have on a typical day? Patient does not drink [facility] Work Phone: Start: 02-17-2023 Alcohol Comment rare glass of wine [facility] Work Phone: Start: 10-04-2023 End: 07-06-2024 Alcoholic beverage intake Ex-drinker (finding) [facility] Start: 06-12-2024 Sex Female (finding) [facility] Medical Equipment Procedure Code Equipment Code Equipment Origin al Text Equipment Identifier Dates Graft Matrix, Du ral, Duragen Plus 2x2 () - [id number] Start: 02-22-2023 Cross Pin, Axs Self-Tap, 1.5 X 4mm - [id number] Start: 02-22-2023 Plate, 2h 10mm B ar Ultra Low Profile - [id number] Start: 02-22-2023 Clinical Notes 07-18-2021 to 07-06-2024 Meño Gomez NP - 07/06/2024 2:00 PM Romero Gomez NP - 03/16/2024 8:30 AM George Gomez NP - 12/21/2023 1:15 PM Ankush Toney DO - 12/21/2023 10:30 AM EDTDischajona Instructions Note Date & Type Note Facility 07-06-2024 History of Present illness Narrative Associated Order(s): L Inj/Asp: L knee; L Inj/Asp: R knee Post-Procedure Diagnose(s): Primary osteoarthritis of left knee; Primary osteoarthritis of right knee Images from the original note were not included. HISTORY OF PRESENT ILLNESS: EST PT Ya Womack is an 59 y.o. @ female. (EST PT) LT KNEE - XRAY TODAY EPIC 07/06/24 XRAY EPIC 05/18/23 DEPO INJECTION 05/12/22, 05/18/23, 12/21/23, 03/16/24 PHYSICAL THERAPY POST OP 2010 PAIN DIFFUSE IN KNEES. +TYL, NO RELIEF. DENIES N/T. INTERMITTENT SWELLING. +POPPING, GRINDING. NOTICES A POP POSTERIOR. +GIVING OUT. WAKES AT HS. HAS TRIED KNEE SLEEVE, DOESN'T STAY UP. HX B/L PARTIAL MENISCECTOMY HX GASTRIC SLEEVE 04[facility]13/23[facility] KNEE PAIN XRAY TODAY EPIC 07/06/24 XRAY B/L AP WB EPIC 05/18/23 DEPO INJECTION 05/25/23, 03/16/24 PAIN DIFFUSE IN KNEES. +TYL, NO RELIEF. DENIES N/T. INTERMITTENT SWELLING. +POPPING, GRINDING. NOTICES A POP POSTERIOR. +GIVING OUT. WAKES AT HS. HAS TRIED KNEE SLEEVE, DOESN'T STAY UP. ALLERGIES: No Known Allergies HOME MEDICATIONS: Current Outpatient Medications Medication Instructions busPIRone (BUSPAR) 10 mg, 3 times daily DULoxetine (CYMBALTA) 120 mg, Daily hydrOXYzine pamoate (VISTARIL) 50 mg, Every 8 hours PRN lamoTRIgine (LAMICTAL XR) 100 mg, 2 times daily primidone (Mysoline) 50 MG tablet 2 po q hs rOPINIRole (Requip) 1 MG tablet 1 tablet in the morning and 3 tablets qhs Vraylar 3 MG capsule 1 capsule, Daily PHYSICAL EXAM: Knee Musculoskeletal Exam Gait Antalgic: right and left Inspection Leg length disparity: no discrepancy Right Erythema: none Effusion: mild Edema: mild Ecchymosis: none Deformity: none Alignment: valgus Left Erythema: none Effusion: mild Edema: mild Ecchymosis: none Deformity: none Alignment: valgus Palpation Right Right knee palpation is unremarkable. Increased warmth: none Masses: none Crepitus: patellofemoral and lateral Tenderness: present Lateral joint line: moderate Medial joint line: moderate Patella: mild Left Left knee palpation is unremarkable. Increased warmth: none Masses: none Crepitus: patellofemoral and lateral Tenderness: present Lateral joint line: moderate Medial joint line: moderate Patella: mild Range of Motion Right Right knee range of motion is normal and full. Active extension: 5 Passive extension: 0 Active flexion: 110 Passive flexion: 120 Left Left knee range of motion is normal and full. Active extension: 5 Passive extension: 0 Active flexion: 110 Passive flexion: 120 Strength Right Right knee strength is normal. Extension: 5/5. Extension is affected by pain. Flexion: 5/5. Flexion is affected by pain. Left Left knee strength is normal. Extension: 5/5. Extension is affected by pain. Flexion: 5/5. Flexion is affected by pain. Instability Right Instability signs: none - stable Anterior drawer: normal Left Instability signs: none - stable Anterior drawer: normal Neurovascular Right Right knee neurovascular exam is normal. Pulses - PT: normal Posterior tibial: 2+ Capillary refill: warm and well-perfused Left Left knee neurovascular exam is normal. Pulses - PT: normal Posterior tibial: 2+ Capillary refill: warm and well-perfused Special Signs Right Right knee special signs are normal. Patellar apprehension: none Left Left knee special signs are normal. Patellar apprehension: none General Constitutional: appears stated age Labored breathing: no Psychiatric: normal mood and affect Neurological: alert Skin: intact Lymphadenopathy: none Vitals: There is no height or weight on file to calculate BMI. Tobacco Use: Low Risk (07/06/2024) Patient History Smoking Tobacco Use: Never Smokeless Tobacco Use: Never Passive Exposure: Not on file Alcohol Use: Not At Risk (02/22/2023) Received from [facility] Frequency of Alcohol Consumption: Never Average Number of Drinks: Patient does not drink Frequency of Binge Drinking: Never IMAGING: XR knee 1 or 2 views left Imaging Result: 07/06/2024: AP and lateral views of left knee showed severe osteoarthritis with valgus deformity with bozg-uj-bgql articulation, flattening of the articular surfaces to the medial joint line lateral joint line and patellofemoral joint. Subchondral sclerosis was noted at the medial joint line surfaces as well as the lateral joint line and patellofemoral joint. Marginal osteophytic formation was noted tricompartmentally. There is no evidence of fracture or dislocation. Impression: severe degenerative joint disease left knee with valgus deformity Meño Gomez THREAD ROLLER-SURGICAL RESIDENT XR knee 1 or 2 views right Imaging Result: 07/06/2024: AP and lateral views of right knee showed severe osteoarthritis with valgus deformity with near tahx-pw-saiz articulation, flattening of the articular surfaces to the medial joint line lateral joint line and patellofemoral joint. Subchondral sclerosis was noted at the medial joint line surfaces as well as the lateral joint line and patellofemoral joint. Marginal osteophytic formation was noted tricompartmentally. There is no evidence of fracture or dislocation. Impression: severe degenerative joint disease right knee with valgus deformity Meño Gomez THREAD ROLLER-SURGICAL RESIDENT L Inj/Asp: L knee on 07/06/2024 2:07 PM Indications: pain Details: 21 G needle, anterolateral approach Medications: 40 mg methylPREDNISolone acetate 40 MG/ML Outcome: tolerated well, no immediate complications Site was cleaned with isopropyl alcohol Procedure, treatment alternatives, risks and benefits explained, specific risks discussed. Consent was given by the patient. L Inj/Asp: R knee on 07/06/2024 2:07 PM Indications: pain Details: 21 G needle, anterolateral approach Medications: 40 mg methylPREDNISolone acetate 40 MG/ML Outcome: tolerated well, no immediate complications Site cleaned with isopropyl alcohol Procedure, treatment alternatives, risks and benefits explained, specific risks discussed. Consent was given by the patient. Orders Placed This Encounter Procedures L Inj/Asp This order was created via procedure documentation L Inj/Asp This order was created via procedure documentation XR knee 1 or 2 views left Is the patient ?: No Reason for exam:: pain XR knee 1 or 2 views right Is the patient ?: No Reason for exam:: pain ASSESSMENT: ICD-10-CM 1. Primary osteoarthritis of left knee M17.12 2. Chronic pain of left knee M25.562 XR knee 1 or 2 views left G89.29 3. Chronic pain of right knee M25.561 XR knee 1 or 2 views right G89.29 4. Primary osteoarthritis of right knee M17.11 PLAN: I reviewed xray findings with the patient and discussed treatment options, answered questions. I discussed with the patient the option of an injection for both knees as she is not interested in TKA at this time. I advised the patient of risks associated [...] discussed. She will follow up if symptoms fail to improve. Questions answered in laymen terms at the bedside. The diagnosis, home exercise plan and any ongoing restrictions/ recommendations reviewed. If unable to be reached in office, I recommend evaluation at nearest Emergency Room if any symptoms worsened or new symptoms develop for requiring urgent evaluation. Meño Gomez THREAD ROLLER-SURGICAL RESIDENT documented in this encounter [facility] 03-16-2024 History of Present illness Narrative Associated [...] PARTIAL MENISCECTOMY HX [facility]: No Known Allergies HOME MEDICATIONS: [...] develop for requiring urgent evaluation. Meño Gomez THREAD ROLLER-SURGICAL RESIDENT documented in this encounter [facility] 12-21-2023 History of Present illness Narrative [...] knee arthroscopy: right mar 2015 Dr. Curran [facility], left knee 2010 Dr. Sherie Gil, no brace, P.T. in 2010 after her surgery, XR, TYL, cane, depo injection 05/12/22, XR NOMS 05/18/23, depo injection 05/18/23 Hx B/L partial menisectomy [facility]: No Known Allergies HOME MEDICATIONS: [...] develop for requiring urgent evaluation. Meño Gomez THREAD ROLLER-SURGICAL RESIDENT documented in this encounter [facility] 12-21-2023 History of Present illness Narrative [...] of left knee 07/20/2022 Depression (CMS/HCC) Diabetes (CMS/[facility]) HTN (hypertension) (CMS/[facility]) Hypersomnia Internal derangement of left knee 07/20/2022 Memory loss Obesity Obstructive sleep apnea Osteoarthritis of knee 07/20/2022 Restless leg syndrome Snoring Tremor Past Surgical History: Procedure Laterality Date BRAIN SURGERY 03/2023 Was leaking spinal fluid SECTION, CLASSIC 1990 and 1992 CHOLECYSTECTOMY GASTRIC BYPASS 04/13/2023 Dr Doherty, [facility] HEEL SPUR EXCISION Right HYSTERECTOMY 1999 total ID ARTHROSCOPY KNEE DIAGNOSTIC W/WO SYNOVIAL BX SPX Right 2015 Dr. Curran ID ARTHROSCOPY KNEE DIAGNOSTIC W/WO SYNOVIAL BX SPX [...] was councelled on the risks of stroke, OR, and sudden with SHASHA. This was discussed with the patient, all questions were answered and they agreed with the treatment plan. The patient is to call with any worsening of the condition or new symptoms. Return to clinic: 2-3 months documented in this encounter [facility] 11-23-2023 Telephone encounter Note Noted. [facility] 11-23-2023 Miscellaneous Notes Noted. Pt was unable to come in this week and drive all the way to [place]. Has appt scheduled for 12/06/2023 at [facility]. Can she come in this week. I know we have openings. Patient calls stating that pramipexole is not working for RLS. Is unable to sleep, jerking has worsened and tightness have worsened since taking med. States that Requip at least helped, however, this med is making it to where pt can barely make it in a car. documented in this encounter [facility] 11-23-2023 Telephone encounter Note Pt was unable to come in this week and drive all the way to [place]. Has appt scheduled for 12/06/2023 at [facility]. [facility] 11-23-2023 Telephone encounter Note Can she come in this week. I know we have openings. [facility] 11-23-2023 Telephone encounter Note Patient calls stating that pramipexole is not working for RLS. Is unable to sleep, jerking has worsened and tightness have worsened since taking med. States that Requip at least helped, however, this med is making it to where pt can barely make it in a car. [facility] 03-16-2023 History of Present illness Narrative Date [...] Fercho Ham MD documented in this encounter [facility] Work Phone: 02-25-2023 History of Present illness [...] for specific attendings. Please reach out via Box Upon a Time. If you are not able to reach a resident in a timely fashion or if any urgent issue, please page. Camryn Barrios MD (Martin Stanton Semaan, [place]) - pager [phone] Dayami Velasco MD (Martin Stanton Semaan, Jitendra) Liberty Maldonado MD (Bethanie Chen, [place]) - pager [phone] For the following providers - ([place], [place], Lara) - please epic Soonrku the resident writing the note or page the residents above. On weekends of after 5pm, please page [phone]. Associated attestation - Fercho Ham MD - [...] Precautions: Hearing/Visual Limitations: WFL but slightly [facility] Precautions: Fall precautions Precautions Comment: SBP [...] Bathroom Toilet: Standard Prior Function: Level of [place]: Independent with ADLs and functional transfers, Independent [...] AROM WFL, strength >/= 3+/5) Outcome Measures: [facility] Daily Activity Putting on and taking [...] mL/kg); IV Piggyback:1999] Out: 2195 (14.8 mL/kg) [Urine:1995 (0.4 mL/kg/hr)] [...] Plan: Floor and transfer to ENT on 5 Maintain LD with 10cc/hr ENT recs [...] Prior Function Per Pt/Caregiver Report Level of [place]: Independent with ADLs and functional transfers, Independent [...] alternating marches in standing 5x Outcome Measures: [facility] Basic Mobility Turning from your back [...] only Sitting: Supervision or set-up only Transfer Owh-bt-Jxtti: Supervision or set-up only Transfer Asmwtb-mn-Eut: Supervision or set-up only Total Score: 22 [...] Verbalizes Understanding Mobility Training, taught by Wandy Abreu, PT at 02/23/2023 [...] while in bed - Dispo: transfer to [place] [address] D/w Dr. Ham Residents to contact during the week between 6am to 5pm below regarding patient related issues for specific attendings. Please reach out via Box Upon a Time. If you are not able to reach a resident in a timely fashion or if any urgent issue, please page. Camryn Barrios MD (Martin Stanton Semaan, Jitendra) - pager [phone] Dayami Velasco MD (Martin Stanton Semaan, Jitendra) Liberty Maldonado MD (Bethanie Chen, [place]) - pager [phone] For the following providers - ([place], [place], Lara) - please [employer] the resident writing the note or page the residents above. On weekends of after 5pm, please page [phone]. Associated attestation - Fercho Ham MD - [...] for CSF leak. Pharmacy reviewed the patient's fgacy-ne-ytdlrzvgm medications and allergies for accuracy. The list below reflects the updated SCARF AND ANNEAL OPERATOR list. Comments regarding how patient may be [...] discharge. Pharmacy has been updated to [facility] in [place]. Sources used to complete the med history include out patient fill history, OARRS, and patient interview. Patient was a good historian, confirmed all the meds they have been taking along with time of last dose. Below are additional concerns with the patient's SCARF AND ANNEAL OPERATOR list. -FACUNDO Myers PharmD Transitions of Care Pharmacist [facility] Please reach out via Secure Chat for questions, or if no response call [phone] or Reachpod - [employer] documented in this encounter [facility] Work Phone: 02-25-2023 Hospital course Narrative Discharge [...] Center 03/11/2023 3:15 PM Fercho Ham MD [id number] [place] Camryn Barrios MD Associated attestation - [...] in the note. documented in this encounter [facility] Work Phone: 02-24-2023 Hospital Discharge instructions Camryn [...] to the ED. documented in this encounter [facility] Work Phone: 02-23-2023 Plan of care note [...] Outcome: Progressing Goal: Promote/optimize nutrition Outcome: Progressing [facility] 02-23-2023 Miscellaneous Notes The patient's goals for [...] (R) Operative Note Date: 02/22/2023 OR Location: [facility] OR Name: Ya Womack, : 1965, Age: 57 y.o., , Sex: female Diagnosis Pre-op Diagnosis * CSF leak [G96.00] Post-op Diagnosis * CSF leak [G96.00] Procedures Craniotomy Middle Fossa with mastodectomy 26608 - ID RESCJ/EXC LES ITPRL FOSSA SPACE APEX IDRL W/RPR Craniotomy Middle Fossa with mastoidectomy 34552 - ID RESCJ/EXC LES ITPRL FOSSA SPACE APEX IDRL W/RPR ID STRTCTC CPTR ASSTD PX CRANIAL INTRADURAL [[id number]] ID MICROSURG TQS REQ USE OPERATING MICROSCOPE [[id number]] ID INFRATEMPO MID CRANIAL FOSSA W/WO DCOMPR&/MOBI [[id number]] ID IONM 1 ON 1 IN OR W/ATTENDANCE EACH 15 MINUTES [[id number]] Surgeons Panel 1: * Clayton Hawley - Primary Panel 2: * Fercho Ham - Primary Resident/Fellow/Other Quantitative Researcher: Surgeon(s) and Role: Panel 1: * Katherine [...] 1285 mL Specimen: No specimens collected Staff: Energy Efficient Site Manager: Monae Jean RN Relief Energy Efficient Site Manager: Amanda Benavides RN Relief Scrub: Katie Jennings [...] MATRIX, DURAL, DURAGEN PLUS 2X2 (1/PK) - [id number] Implanted Neuro Interventional Implant CROSS PIN, AXS SELF-TAP, 1.5 X 4MM - [id number] Implanted Screw PLATE, YY 6H 8MM BAR ULTRA LOW PROFILE - [id number] Implanted Screw PLATE, 2H 10MM BAR ULTRA LOW PROFILE - [id number] Implanted Findings: Indications: Ya Womack is an [...] (R) Operative Note Date: 02/22/2023 OR Location: [facility] OR Name: Ya Womack, : 1965, Age: 57 y.o., , Sex: female Diagnosis Pre-op Diagnosis * CSF leak [G96.00] Post-op Diagnosis * CSF leak [G96.00] Procedures Craniotomy Middle Fossa with mastodectomy 06890 - ID RESCJ/EXC LES ITPRL FOSSA SPACE APEX IDRL W/RPR Craniotomy Middle Fossa with mastoidectomy 55924 - ID RESCJ/EXC LES ITPRL FOSSA SPACE APEX IDRL W/RPR ID STRTCTC CPTR ASSTD PX CRANIAL INTRADURAL [[id number]] ID MICROSURG TQS REQ USE OPERATING MICROSCOPE [[id number]] ID INFRATEMPO MID CRANIAL FOSSA W/WO DCOMPR&/MOBI [[id number]] ID IONM 1 ON 1 IN OR W/ATTENDANCE EACH 15 MINUTES [36995] Surgeons Panel 1: * Clayton Hawley - Primary Panel 2: * Fercho Ham - Primary Resident/Fellow/Other Quantitative Researcher: Surgeon(s) and Role: Panel 1: * Katherine [...] 1285 mL Specimen: No specimens collected Staff: Energy Efficient Site Manager: Monae Jean RN Relief Energy Efficient Site Manager: Amanda Benavides RN Relief Scrub: Katie Jennings [...] MATRIX, DURAL, DURAGEN PLUS 2X2 (1/PK) - [id number] Implanted Neuro Interventional Implant CROSS PIN, AXS SELF-TAP, 1.5 X 4MM - [id number] Implanted Screw PLATE, YY 6H 8MM BAR ULTRA LOW PROFILE - [id number] Implanted Screw PLATE, 2H 10MM BAR ULTRA LOW PROFILE - [id number] Implanted Findings: Indications: Ya Womack is an [...] (R) Operative Note Date: 02/22/2023 OR Location: [facility] OR Name: Ya Womack, : [...] for otorrhea, and temporal skull base encephalocele [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 Secondary repair of dural/cerebrospinal fluid leak [75408-59] - Right 3. Needle electromyography; cranial nerve supplied muscle(s), unilateral - Facial nerve. - Right 4. Microsurgical techniques, requiring use of operating microscope - Right 5. Right ear tube removal with underlay myringoplasty [80940] Surgeons Panel 1: * Clayton Hawley - Primary Panel 2: * Fercho Ham - Primary Resident/Fellow/Other Quantitative Researcher: Surgeon(s) and Role: Panel 1: * Katherine [...] 1285 mL Specimen: No specimens collected Staff: Energy Efficient Site Manager: Monae Jean RN Relief Energy Efficient Site Manager: Amanda Benavides RN Relief Scrub: Katie Jennings RN Scrub Person: Andrew Vides; Anisablue Strong Drains and/or Catheters: Urethral Catheter Non-latex [...] MATRIX, DURAL, DURAGEN PLUS 2X2 (/) - [id number] Implanted Neuro Interventional Implant CROSS PIN, AXS SELF-TAP, 1.5 X 4MM - [id number] Implanted Screw PLATE, YY 6H 8MM BAR ULTRA LOW PROFILE - [id number] Implanted Screw PLATE, 2H 10MM BAR ULTRA LOW PROFILE - [id number] Implanted Findings: 1. Lumbar drain placed by [...] had reached dura along all edges, a [place] 1 dissector was used to carefully elevate [...] At this stage, bactroban, telfa, and a Bollinger dressing were then placed over the incision. [...] note for details. Date: 02/22/2023 OR Location: [facility] OR Name: Ya Womack, : 1965, Age: 57 y.o., , Sex: female Diagnosis Pre-op Diagnosis * CSF leak [G96.00] Post-op Diagnosis * CSF leak [G96.00] Procedures Craniotomy Middle Fossa with mastodectomy 41638 - ID RESCJ/EXC LES ITPRL FOSSA SPACE APEX IDRL W/RPR Craniotomy Middle Fossa with mastoidectomy 05516 - ID RESCJ/EXC LES ITPRL FOSSA SPACE APEX IDRL W/RPR ID STRTCTC CPTR ASSTD PX CRANIAL INTRADURAL [[id number]] ID MICROSURG TQS REQ USE OPERATING MICROSCOPE [[id number]] ID INFRATEMPO MID CRANIAL FOSSA W/WO DCOMPR&/MOBI [[id number]] ID IONM 1 ON 1 IN OR W/ATTENDANCE EACH 15 MINUTES [33387] Surgeons Panel 1: * Clayton Hawley - Primary Panel 2: * Fercho Ham - Primary Resident/Fellow/Other Quantitative Researcher: Surgeon(s) and Role: Panel 1: * Katherine [...] -215 mL Specimen: No specimens collected Staff: Energy Efficient Site Manager: Monae Jean RN Scrub Person: Andrew Vides; Anisa Strong Findings: good repair of CSF leak Complications: None; patient tolerated the procedure well. Disposition: PACU - hemodynamically stable. Condition: stable Specimens Collected: No specimens collected Attending Attestation: Clayton Hawley documented in this encounter [facility] Work Phone: 02-22-2023 Plan of care note Problem: Skin Goal: Prevent/manage excess moisture Outcome: Progressing Goal: Prevent/minimize sheer/friction injuries Outcome: Progressing Goal: Promote/optimize nutrition Outcome: Progressing The patient's goals for the shift include no pain The clinical goals for the shift include stable neuro exam [facility] 02-22-2023 Plan of care note The patient's goals for the shift include improved pain The clinical goals for the shift include stable neuro exam [facility] Work Phone: 02-22-2023 Hospital Note Formatting of [...] in stable condition with follow up arranged. [facility] Work Phone: 02-22-2023 Note Formatting of this n ote is different from the original. Craniotomy Middle Fossa with mastodectomy (R) Operative Note Date: 02/22/2023 OR Location: [facility] OR Name: Ya Womack, : 1965, Age: 57 y.o., , Sex: female Diagnosis Pre-op Diagnosis * CSF leak [G96.00] Post-op Diagnosis * CSF leak [G96.00] Procedures Craniotomy Middle Fossa with mastodectomy 89381 - ID RESCJ/EXC LES ITPRL FOSSA SPACE APEX IDRL W/RPR Craniotomy Middle Fossa with mastoidectomy 64460 - ID RESCJ/EXC LES ITPRL FOSSA SPACE APEX IDRL W/RPR ID STRTCTC CPTR ASSTD PX CRANIAL INTRADURAL [[id number]] ID MICROSURG TQS REQ USE OPERATING MICROSCOPE [[id number]] ID INFRATEMPO MID CRANIAL FOSSA W/WO DCOMPR&/MOBI [[id number]] ID IONM 1 ON 1 IN OR W/ATTENDANCE EACH 15 MINUTES [21555] Surgeons Panel 1: * Clayton Hawley - Primary Panel 2: * Fercho Ham - Primary Resident/Fellow/Other Quantitative Researcher: Surgeon(s) and Role: Panel 1: * Katherine [...] 1285 mL Specimen: No specimens collected Staff: Energy Efficient Site Manager: Monae Jean RN Relief Energy Efficient Site Manager: Amanda Benavides RN Relief Scrub: Katie Jennings [...] MATRIX, DURAL, DURAGEN PLUS 2X2 (1/PK) - [id number] Implanted Neuro Interventional Implant CROSS PIN, AXS SELF-TAP, 1.5 X 4MM - [id number] Implanted Screw PLATE, YY 6H 8MM BAR ULTRA LOW PROFILE - [id number] Implanted Screw PLATE, 2H 10MM BAR ULTRA LOW PROFILE - [id number] Implanted Findings: Indications: Ya Womack is an [...] Condition: Additional Details: Attending Attestation: Clayton Hawley [facility] Work Phone: 02-22-2023 Note Formatting of this n ote is different from the original. Craniotomy Middle Fossa with mastodectomy (R) Operative Note Date: 02/22/2023 OR Location: [facility] OR Name: Ya Womack, : 1965, Age: 57 y.o., , Sex: female Diagnosis Pre-op Diagnosis * CSF leak [G96.00] Post-op Diagnosis * CSF leak [G96.00] Procedures Craniotomy Middle Fossa with mastodectomy 95978 - ID RESCJ/EXC LES ITPRL FOSSA SPACE APEX IDRL W/RPR Craniotomy Middle Fossa with mastoidectomy 05477 - ID RESCJ/EXC LES ITPRL FOSSA SPACE APEX IDRL W/RPR ID STRTCTC CPTR ASSTD PX CRANIAL INTRADURAL [[id number]] ID MICROSURG TQS REQ USE OPERATING MICROSCOPE [[id number]] ID INFRATEMPO MID CRANIAL FOSSA W/WO DCOMPR&/MOBI [[id number]] ID IONM 1 ON 1 IN OR W/ATTENDANCE EACH 15 MINUTES [31157] Surgeons Panel 1: * Clayton Hawley - Primary Panel 2: * Fercho Ham - Primary Resident/Fellow/Other Quantitative Researcher: Surgeon(s) and Role: Panel 1: * Katherine [...] 1285 mL Specimen: No specimens collected Staff: Energy Efficient Site Manager: Monae Jean RN Relief Energy Efficient Site Manager: Amanda Benavides RN Relief Scrub: Katie Jennings [...] MATRIX, DURAL, DURAGEN PLUS 2X2 (1/PK) - [id number] Implanted Neuro Interventional Implant CROSS PIN, AXS SELF-TAP, 1.5 X 4MM - [id number] Implanted Screw PLATE, YY 6H 8MM BAR ULTRA LOW PROFILE - [id number] Implanted Screw PLATE, 2H 10MM BAR ULTRA LOW PROFILE - [id number] Implanted Findings: Indications: Ya Womack is an [...] Condition: Additional Details: Attending Attestation: Clayton Hawley [facility] Work Phone: 02-22-2023 Note Formatting of this n ote is different from the original. Craniotomy Middle Fossa with mastodectomy (R) Operative Note Date: 02/22/2023 OR Location: [facility] OR Name: Ya Womack, : [...] for otorrhea, and temporal skull base encephalocele [65590-04] - Middle Fossa Approach for repair of tegmen encephalocele and CSF leak, Duraplasty - Right 2. Secondary repair of dural/cerebrospinal fluid leak [79872-92] - Right 3. Needle electromyography; cranial nerve supplied muscle(s), unilateral - Facial nerve. - Right 4. Microsurgical techniques, requiring use of operating microscope - Right 5. Right ear tube removal with underlay myringoplasty [81965] Surgeons Panel 1: * Clayton Hawley - Primary Panel 2: * Fercho Ham - Primary Resident/Fellow/Other Quantitative Researcher: Surgeon(s) and Role: Panel 1: * Katherine [...] 1285 mL Specimen: No specimens collected Staff: Energy Efficient Site Manager: Monae Jean RN Relief Energy Efficient Site Manager: Amanda Benavides RN Relief Scrub: Katie Jennings [...] MATRIX, DURAL, DURAGEN PLUS 2X2 (1/PK) - [id number] Implanted Neuro Interventional Implant CROSS PIN, AXS SELF-TAP, 1.5 X 4MM - [id number] Implanted Screw PLATE, YY 6H 8MM BAR ULTRA LOW PROFILE - [id number] Implanted Screw PLATE, 2H 10MM BAR ULTRA LOW PROFILE - [id number] Implanted Findings: 1. Lumbar drain placed by [...] had reached dura along all edges, a [place] 1 dissector was used to carefully elevate [...] At this stage, bactroban, telfa, and a Bollinger dressing were then placed over the incision. [...] entire duration. See resident note for details. [facility] Work Phone: 02-22-2023 Note Formatting of this n ote is different from the original. Date: 02/22/2023 OR Location: [facility] OR Name: Ya Womack, : 1965, Age: 57 y.o., , Sex: female Diagnosis Pre-op Diagnosis * CSF leak [G96.00] Post-op Diagnosis * CSF leak [G96.00] Procedures Craniotomy Middle Fossa with mastodectomy 02834 - ID RESCJ/EXC LES ITPRL FOSSA SPACE APEX IDRL W/RPR Craniotomy Middle Fossa with mastoidectomy 90959 - ID RESCJ/EXC LES ITPRL FOSSA SPACE APEX IDRL W/RPR ID STRTCTC CPTR ASSTD PX CRANIAL INTRADURAL [[id number]] ID MICROSURG TQS REQ USE OPERATING MICROSCOPE [[id number]] ID INFRATEMPO MID CRANIAL FOSSA W/WO DCOMPR&/MOBI [[id number]] ID IONM 1 ON 1 IN OR W/ATTENDANCE EACH 15 MINUTES [[id number]] Surgeons Panel 1: * Clayton Hawley - Primary Panel 2: * Fercho Ham - Primary Resident/Fellow/Other Quantitative Researcher: Surgeon(s) and Role: Panel 1: * Katherine [...] -215 mL Specimen: No specimens collected Staff: Energy Efficient Site Manager: Monae Jean RN Scrub Person: Andrew Strong Findings: good repair of CSF leak Complications: None; patient tolerated the procedure well. Disposition: PACU - hemodynamically stable. Condition: stable Specimens Collected: No specimens collected Attending Attestation: Clayton Hawley [facility] Work Phone: 02-22-2023 History and physical [...] mouth once daily., Disp: , Rfl: HYDROcodone-acetaminophen (Filley) 5-325 mg tablet, Take by mouth., Disp: [...] proceed. We will proceed today with surgery. [facility] Work Phone: 02-22-2023 History and physical note [...] mouth once daily., Disp: , Rfl: HYDROcodone-acetaminophen (Filley) 5-325 mg tablet, Take by mouth., Disp: [...] disorder (CMS/HCC) CSF leak 01/18/2023 Neuro: Clayton pgua Depression Essential tremor HL (hearing loss) Hyperlipidemia [...] before surgery and morning of surgery 02/17/23 Renae Bowles, THREAD ROLLER-SURGICAL RESIDENT DULoxetine (Cymbalta) [address] capsule Take [...] 01/07/2023 01/07/23 02/17/23 Fercho Ham MD HYDROcodone-acetaminophen (Filley) 5-325 mg tablet Take by mouth. 02/17/23 [...] stress-induced ischemia-normal dobutamine stress echo. Performed at [facility] in [place]- found in care everywhere tab. No additional [...] Straw, Yellow Appearance, Urine Clear Clear Specific [place], Urine 1.019 1.005 - 1.035 pH, Urine [...] No significant growth documented in this encounter [facility] Work Phone: 02-22-2023 Attending History and physical [...] 01/07/2023 01/07/23 02/17/23 Fercho Ham MD HYDROcodone-acetaminophen (Filley) 5-325 mg tablet Take by mouth. 02/17/23 Historical Provider, PAT ROS: Constitutional: neg Neuro/Psych: neg Eyes: neg [...] stress-induced ischemia-normal dobutamine stress echo. Performed at [facility] in [place]- found in care everywhere tab. No additional [...] Straw, Yellow Appearance, Urine Clear Clear Specific [place], Urine 1.019 1.005 - 1.035 pH, Urine [...] Ref Range Urine Culture No significant growth [facility] Work Phone: 01-18-2023 History of Present illness [...] (CYMBALTA) 120 mg, oral, Daily RT HYDROcodone-acetaminophen (Filley) 5-325 mg tablet oral hydrOXYzine pamoate (VISTARIL) [...] the surgical procedure. documented in this encounter [facility] Work Phone: 10-08-2022 Evaluation note Encounter Date [...] understanding and is agreeable to treatment plan [facility] Other 07-08-2023 Evaluation note* Encounter Date Diagnosis [...] no improvement in 2 to 3 days [facility] Other 05-13-2022 Evaluation note* Encounter Date Diagnosis [...] fractu re home care material was printed [facility] Other Evaluation noteNo assessment information available [facility] Work Phone: Evaluation note* Diagnosis CSF leak- Primary Other specified disorder of nervous system documented in this encounter [facility] Work Phone: Evaluation note* Diagnosis CSF leak- Primary Other specified disorder of nervous system CSF leak Other specified disorder of nervous system Post-op pain Other acute postoperative pain Bipolar disorder ([facility]) Bipolar disorder, unspecified Depression Depressive disorder, not elsewhere classified Anxiety Anxiety state, unspecified SHASHA (obstructive sleep apnea) Obstructive sleep apnea (adult) (pediatric) HTN (hypertension) Unspecified essential hypertension Hyperlipidemia Other and unspecified hyperlipidemia Obesity Obesity, unspecified documented in this encounter [facility] Work Phone: Evaluation note* Diagnosis 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 documented in this encounter [facility] Work Phone: Evaluation note* Diagnosis Onset Date Resolution Status Gout acute [facility] Work Phone: Evaluation note* Diagnosis Anemia, unspecified type- Primary Tremor, essential Essential and other specified forms of tremor Restless leg Restless legs syndrome (RLS) Obstructive sleep apnea Obstructive sleep apnea (adult) (pediatric) Primary insomnia Persistent disorder of initiating or maintaining sleep [facility] Diagnosis Primary osteoarthritis of left knee- Primary Left knee pain, unspecified chronicity documented [facility] Diagnosis Primary osteoarthritis of right knee- Primary Primary osteoarthritis of left knee Chronic pain of right knee Chronic pain of left knee documented in this encounter [facility]* Diagnosis Primary osteoarthritis of left knee- Primary Chronic pain of left knee Chronic pain of right knee Primary osteoarthritis of right knee documented in this encounter [facility] Healthcare[facility] general Narrative - Reported* Type Description Date Medical History hypertension Medical History histoplasmosis Surgical History , cholecystectomy, Surgical History hysterectomy 1993 Hospitalization History [employer] Other History general Narrative - Reported* Type Description Date Medical History hypertension Medical History histoplasmosis Medical History ANXIETY AND DEPRESSION Surgical History , cholecystectomy, Surgical History hysterectomy 1993 Hospitalization History [place] Other [facility] general Narrative - Reported* Type Description Date Medical History hypertension Medical History histoplasmosis Medical History ANXIETY AND DEPRESSION Surgical History , cholecystectomy, Surgical History hysterectomy 1993 Surgical History tube in right ear 10/2022 Hospitalization History [employer] Other Summary Purpose Family History No Family History Records Found Relationship Condition Age at Onset Recorded Date/T penelope father Chronic obstructive pulmonary disease Unk nown Relationship Condition Age at Onset Recorded Date/T penelope father Chronic obstructive pulmonary disease Unk nown brother Malignant neoplasm Unknown Unknown family member Unknown Not Specified Unknown Motor vehicle accident Unknown sister Heart disease Unknown Relationship Condition Age at Onset Recorded Date/T penelope father Chronic obstructive pulmonary disease Unk nown brother Malignant neoplasm Unknown Unknown family member Unknown mother Unknown Motor vehicle accident Unknown sister Heart [...] Date/ Time Advance Directives No January 8:02pm Chief Complaint and Reason for Visit Chief Complaint BH Chief Complaint left gout Reason for Visit Gout Chief Complaint Admit Date June 01, 2024 3:1 2pm Gout in right foot June 12, 2024 9:13 am Additional Source Comments INFORMATION SOURCE (unrecogn ized section and content) DATE CREATED AUTHOR 03/16/2019 [facility] DATE CREATED AUTHOR AUTHOR'S ORGANIZ ATION 05/02/2021 [facility] DATE CREATED AUTHOR AUTHOR'S ORGANIZ ATION 12/16/2021 [facility] DATE CREATED AUTHOR AUTHOR'S ORGANIZ ATION 03/21/2023 [facility] DATE CREATED AUTHOR AUTHOR'S ORGANIZ ATION 07/09/2023 [facility] DATE CREATED AUTHOR AUTHOR'S ORGANIZ ATION 11/25/2023 [facility] DATE CREATED AUTHOR AUTHOR'S ORGANIZ ATION 01/22/2024 [facility] DATE CREATED AUTHOR AUTHOR'S ORGANIZ ATION 01/23/2024 [facility] DATE CREATED AUTHOR AUTHOR'S ORGANIZ ATION 07/11/2024 [facility] DATE CREATED AUTHOR AUTHOR'S ORGANIZ ATION 07/11/2024 [facility] EPIC REASON FOR VISIT (unrecogniz ed section and content) Specialty Diagnoses / Procedures Referred By Jeffry t Referred To Contact Diagnoses CSF leak CSF leak [G96.00] Procedures ID RESCJ/EXC LES ITPRL FOSSA SPACE APEX IDRL W/RPR ID RESCJ/EXC LES ITPRL FOSSA SPACE APEX IDRL W/RPR ID STRTCTC CPTR ASSTD PX CRANIAL INTRADURAL ID MICROSURG TQS REQ USE OPERATING MICROSCOPE ID INFRATEMPO MID CRANIAL FOSSA W/WO DCOMPR&/MOBI ID IONM 1 ON 1 IN OR W/ATTENDANCE EACH 15 MINUTES Craniotomy Middle Fossa with mastodectomy Craniotomy Middle [place] [address] Department [place] [address] [place] [address] [place] [address] Referral ID Status Reason Start Date Expiration Date Visits Re quested Visits Authorized [id number] 1 1 Reason Comments Post-op Visit Stitch removal Reason Comments essential tremor Restless Legs Reason Comments Pain Reason Comments Pain Care Teams (unrecognized sec tion and content) Team Status: Active Member Role Status Dates Harlan Almeida DO Primary Care Provider Active Team Status: Active Member Role Status Dates Harlan Almeida DO Primary Care Provider Active Start: June 01, 2024 Deepak Longo MD Attending Provider Active Start: June 01, 2024 Team Status: Inactive Member Role Status Dates Harlan Almeida DO Primary Care Provider Active Start: June 12, 2024 End: June 12, 2024 Lilia Mukherjee APRN Attending Provider Active S tart: June 12, 2024 End: June 12, 2024 Team Status: Inactive Member Role Status Dates [...] Provider Active DANA Shook Attending Provider Active Slumber Room Attendant Relationship Specialty Start Date End Date Harlan Almeida DO [address] [facility], [place] [address] PCP - General Family Medicine 10/4/23 Slumber Room Attendant Relationship Specialty Start Date End Date Harlan Almeida [address] [place] [address] PCP - General Family Medicine 12/09/22 Slumber Room Attendant Relationship Specialty Start Date End Date Elle Harlan Overton [address] [place] [address] PCP - General Family Medicine 12/09/22 Slumber Room Attendant Relationship Specialty Start Date End Date Harlan Almeida MD [address] [place] [address] PCP - General Family Medicine 07/29/22 Slumber Room Attendant Relationship Specialty Start Date End Date Harlan Almeida MD [address] [place] [address] PCP - General Family Medicine 07/29/22 Slumber Room Attendant Relationship Specialty Start Date End Date Harlan Almeida MD [address] [place] [address] PCP - General Family Medicine 07/29/22 Slumber Room Attendant Relationship Specialty Start Date End Date Harlan Almeida MD [address] [place] [address] PCP - General Family Medicine 07/29/22 Slumber Room Attendant Relationship Specialty Start Date End Date Harlan Almeida MD [address] [place] [address] PCP - General Family Medicine 07/29/22 Slumber Room Attendant Relationship Specialty Start Date End Date Harlan Almeida MD [address] [facility] [place] [address] PCP - General Family Medicine 07/29/22 Slumber Room Attendant Relationship Specialty Start Date End Date Harlan Almeida MD [address], [facility] [place] [address] PCP - General Family Medicine 07/29/22 Slumber Room Attendant Relationship Specialty Start Date End Date Harlan Almeida MD PCP - General Family Medicine 07/29/22 Slumber Room Attendant Relationship Specialty Start Date End Date Harlan Almeida MD PCP - General Family Medicine 07/29/22 Goals [...] No, Suspected Indication (Select all that apply): 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'S 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/Meningoencephalitis, Type of Therapy: Empiric 0907 (New Bag [...] Shook, SOLITARIO)1552 (New Bag - Provider: Daily Mortensen RN)1622 (Stopped - Provider: Daily Mortensen RN)2315 (Due) [...] Castellon MD)0950 (Given - Provider: Giuseppe Thompson LPN)2016 (Given - Provider: Laverne Shook RN) 0844 (Given - Provider: Daily Mortensen RN)2100 (Due) lisinopril 20 mg, hydroCHLOROthiazide 25 mg for Zestoretic/Prinizide oral, Daily, First dose on Wed02/22/23 at 1430, Give both components for Zestoretic/Prinizide product 0900 (Not Given - Provider: Neptali Robbins RN - Reason: Other - Comment: soft BP) 0542 (MAY Hold - Provider: Automatic Transfer Provider - Reason: Unreviewed Transfer Orders)0653 (MAR Unhold - Provider: Gilberto Castellon MD)0949 (Given - Provider: Giuseppe Thompson LPN) 0844 (Given - Provider: Daily Mortensen, SOLITARIO) magnesium sulfate IV 2 g (COMPLETED) [...] - Provider: Laverne Shook RN) 2100 (Due) primidone (Mysoline) tablet 50 mg 50 [...] 1400 1219 (Given - Provider: Neptali Robbins RN)2038 (Given - Provider: Janett Zhou RN) 0542 (MAR Hold - Provider: Automatic Transfer Provider - Reason: Unreviewed Transfer Orders)0653 (MAR Unhold - Provider: Gilberto Castellon MD)0952 (Given - Provider: Giuseppe Thompson LPN)2014 (Given - Provider: Laverne Shook, SOLITARIO) 0844 (Given - Provider: Daily Mortensen, SOLITARIO)2100 (Due - Provider: Jony Ornelas, MartinD) sennosides-docusate sodium (Shirlene-Colace) 8.6-50 mg per tablet 2 tablet 2 tablet, oral, 2 times daily, First dose on Wed02/22/23 at 1430, Bowel Regimen - for prevention of constipation Hold for loose stools 0817 (Given - Provider: Neptali Robbins RN)2037 (Given - Provider: Janett Zhou, SOLITARIO) 0542 (MAY Hold - Provider: Automatic Transfer [...] - Provider: Laverne Shook RN) 2100 (Due) PRN Medication Order 02/23/2023 02/24/2023 [...] (Given - Provider: Ron Marrero RN) 0542 ([facility] Hold - Provider: Automatic Transfer Provider - Reason: Unreviewed Transfer Orders)0653 ([facility] Unhold - Provider: Gilberto Castellon MD) hydrOXYzine pamoate (Vistaril) capsule 50 mg 50 mg, oral, 3 times daily PRN, itching, Starting on Wed02/22/23 at 1256 0542 ([facility] Hold - Provider: Automatic Transfer Provider - Reason: Unreviewed Transfer Orders)0653 ([facility] Unhold - Provider: Gilberto Castellon MD) [...] greater than 12 breaths/minute. 0542 ([facility] Hold - Provider: Automatic Transfer Provider - Reason: Unreviewed Transfer Orders)0653 ([facility] Unhold - Provider: Gilberto Castellon MD) [...] administer over 3-5 minutes. 0542 ([facility] Hold - Provider: Automatic Transfer Provider - Reason: Unreviewed Transfer Orders)0653 ([facility] Unhold - Provider: Gilberto Castellon MD) ondansetron (Zofran) tablet 4 mg(Linked Group 1) 4 mg, oral, Every 8 hours PRN, nausea/vomiting, first line, Starting on Wed02/22/23 at 1256, 1st Line. Use oral route first, if possible. If inadequate response within 60 minutes, proceed to next-line agent for same PRN reason or contact provider if no further options ordered. 0542 ([facility] Hold - Provider: Automatic Transfer Provider - Reason: Unreviewed Transfer Orders)0653 ([facility] Unhold - Provider: Gilberto Castellon MD) [...] (Given - Provider: Janett Zhou RN) 0542 ([facility] Hold - Provider: Automatic Transfer Provider - Reason: Unreviewed Transfer Orders)0653 ([facility] Unhold - Provider: Gilberto Castellon MD) [...] (Given - Provider: Neptali Robbins RN) 0542 ([facility] Hold - Provider: Automatic Transfer Provider - Reason: Unreviewed Transfer Orders)0653 ([facility] Unhold - Provider: Gilberto Castellon MD)0952 [...] BE BASED ON THE PRIMARY CLINICAL RECORDS. [employer]. provides no warranty or guarantee of the accuracy or completeness of information in this document.
[2024-07-21 13:00] VITALS: BP 137/86; PULSE 64; O2SAT 94
[2024-07-21] MEDS: 0.9 % SODIUM CHLORIDE 1,000 ML 1000 ML IV (13:19)
[2024-07-21] MEDS: MECLIZINE HCL 12.5 MG TABLET 25 MG PO (13:20)
[2024-07-21 13:30] LABS: Basophils Percent Auto 0.2 % (0.2-2.0); Eosinophils Absolute Auto 0.2 10^3/uL (0.0-0.7); Eosinophils Percent Auto 2.1 % (0.9-7.0); Hematocrit 41.5 % (36.0-48.0); Hemoglobin 13.8 g/dL (12.0-16.0); Immature Granulocytes Abs Auto 0.02 10^3/uL (0.00-0.03); Immature Granulocytes Pct Auto 0.2 % (0.0-0.5); Lymphocytes Absolute Auto 2.5 10^3/uL (1.2-3.8); Lymphocytes Percent Auto 29.6 % (20.5-60.0); Mean Corpuscular HGB Conc 33.3 g/dL (29.9-35.2); Mean Corpuscular Hemoglobin 29.4 pg (26.7-34.0); Mean Corpuscular Volume 88.3 fL (81.0-99.0); Mean Platelet Volume 8.9 fL (9.5-13.5); Monocytes Absolute Auto 0.8 10^3/uL (0.3-0.8); Monocytes Percent Auto 9.3 % (1.7-12.0); Neutrophils Percent Auto 58.6 % (43.0-75.0); Platelet Count 255 10^3/uL (150-450); Red Cell Distribution Width 11.9 % (11.0-15.0); White Blood Count 8.5 10^3/uL (4.0-11.0)
[2024-07-21 13:43] VITALS: PULSE 82
[2024-07-21 13:47] LABS: Alanine Aminotransferase 20 U/L (14-59); Albumin Globulin Ratio 0.8; Albumin Level 3.3 g/dL (3.4-5.0); Alkaline Phosphatase 80 U/L (46-116); Anion Gap 5.7; Aspartate Amino Transferase 17 U/L (15-37); BUN Creatinine Ratio 28.2; Bilirubin Total 0.4 mg/dL (0.2-1.0); Calcium 9.2 mg/dL (8.5-10.1); Carbon Dioxide 34.7 mmol/L (21.0-32.0); Chloride 105 mmol/L (98-107); Estimated GFR (African America >60 (>=60 mL/min/1.73m^2); Estimated GFR (Non-African Ame >60 (>=60 mL/min/1.73m^2); Glucose 79 mg/dL (74-106); Potassium 4.4 mmol/L (3.5-5.1); Sodium 141 mmol/L (136-145); Total Protein 7.3 g/dL (6.4-8.2); Troponin I High Sensitivity 5.8 pg/mL (4.0-51.3)
[2024-07-21 14:00] VITALS: PULSE 61
[2024-07-21 14:40] VITALS: BP 134/89; PULSE 68
--- NOTE | 2024-07-21 14:42 | PC.NURSE ---
Patient sitting up at side of bed, denies dizziness at this time and refuses valium at this time. Dr. De Guzman aware.
== END 2024-07-21 15:10 | disposition home or self-care (01) ==
PROVIDERS: Emergency Provider Emergency Medicine; PCP Family Medicine
DX: R42 Dizziness and giddiness (principal); Z90.49 Acquired absence of other specified parts of digestive tract; Z90.710 Acquired absence of both cervix and uterus
CPT/HCPCS: 36415; 70450; 71046; 80053; 84484; 85025; 93005; 99285

== ENCOUNTER 2024-08-30 08:25 | Emergency (ER) | payer MEDICARE, SELFPAY ==
[2024-08-30] VITALS (21 sets, daily range): BP systolic 164–207; BP diastolic 92–115; PULSE 64–104; TEMP 36.6; O2SAT 98–100; BMI 35.5
--- NOTE | 2024-08-30 08:42 | ECG_ITS ---
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 Measurements Intervals [place] Rate: 76 P: 26 ME: 148 QRS: -9 QRSD: 86 T: 26 QT: 378 QTc: 408 Interpretive Statements 1100 Sinus rhythm 9110 normal ECG Compared to ECG 07/21/2024 12:49:04 No significant changes Electronically Signed On 08-30-2024 19:59:34 EDT by VIKTOR PETERS M.D.
--- NOTE | 2024-08-30 08:43 | ED_ITS ---
HPI HPI - General Adult General Chief complaint: Abdominal Pain Stated complaint: ABDOMINAL PAIN Time Seen by Provider: 08/30/24 08:29 Source: patient Mode of arrival: walk-in History of Present Illness HPI narrative: 59-year-old female presents to the emergency department for abdominal pain. It began at 10:00 last night, about 11 hours ago. It is all over her abdomen and she has been vomiting. She has never had pain like this before and she has never had a bowel obstruction. The pain is severe. No diarrhea trauma or fever. Related Data Home Medications ?Medication ?Instructions ?Recorded ?Confirmed duloxetine 60 mg capsule,delayed 60 mg PO BID 09/28/22 08/30/24 release lamotrigine 100 mg tablet 100 mg PO Q12H 09/28/2208/07 primidone 50 mg tablet 50 mg PO BID 09/28/22 ropinirole 1 mg tablet 3 mg PO DAILY 09/28/2208/30 buspirone 10 mg tablet 10 mg PO Q12H 06/19/2408/30 aripiprazole 5 mg tablet mg 08/30/24 bupropion HCl 100 mg tablet,12 hr mg PO 08/30/24 sustained-release hydroxyzine pamoate 25 mg capsule mg 08/30/24 Allergies Allergy/AdvReac Type Severity Reaction Status Date / Time No Known Drug Allergies Allergy Verified 08/30/24 08:28 Opioid HPI Opioid Management Most Recent Opioid Data: Last Pain Scale 9 Today, 08:59 Last MAY Pain Assessment Today, 08:59 Review of Systems ROS Narrative A ten point review of systems is negative except as noted above. PFSH PFSH Medical History Dysfunction of right eustachian tube ?H69.91 - Unspecified Eustachian tube disorder, right ear (ICD-10) Hearing loss ?H91.90 - Unspecified hearing loss, unspecified ear (ICD-10) Arthritis ?M19.90 - Unspecified osteoarthritis, unspecified site (ICD-10) OCD (obsessive compulsive disorder) ?F42.9 - Obsessive-compulsive disorder, unspecified (ICD-10) Bipolar disorder ?F31.9 - Bipolar disorder, unspecified (ICD-10) Depression ?F32.A - Depression, unspecified (ICD-10) Anxiety ?F41.9 - Anxiety disorder, unspecified (ICD-10) Dysfunction of both eustachian tubes ?H69.93 - Unspecified Eustachian tube disorder, bilateral (ICD-10) High cholesterol ?E78.00 - Pure hypercholesterolemia, unspecified (ICD-10) Hypertension ?I10 - Essential (primary) hypertension (ICD-10) Lung mass (1982) ?R91.8 - Other nonspecific abnormal finding of lung field (ICD-10) Surgical History History of colonoscopy ?Z98.890 - Other specified postprocedural states (ICD-10) History of lung biopsy (1982) ?Z98.890 - Other specified postprocedural states (ICD-10) History of section ?Z98.891 - History of uterine scar from previous surgery (ICD-10) History of cholecystectomy ?Z90.49 - Acquired absence of other specified parts of digestive tract (ICD- 10) History of arthroscopy of knee ?Z98.890 - Other specified postprocedural states (ICD-10) History of foot surgery ?Z98.890 - Other specified postprocedural states (ICD-10) History of hysterectomy ?Z90.710 - Acquired absence of both cervix and uterus (ICD-10) Family History Other Family history of gastric cancer Family history of lung cancer Social History Within the past year, how often did you have a drink containing alcohol: monthly or less Smoking status: Never smoker Little interest or pleasure in doing things: not at all Feeling down, depressed, or hopeless: not at all Exam Narrative Exam Narrative: Nurses note and vital signs reviewed and patient is not hypoxic. General: The patient appears uncomfortable Skin: Warm, diaphoretic, no pallor noted. There is no rash noted. Head: Normocephalic, atraumatic Eye: Normal conjunctiva, no drainage Ears, Nose, Mouth, and Throat: oral mucosa is moist. Nares patent. Cardiovascular: Regular Rate and Rhythm Respiratory: Patient is in no distress, no accessory muscle use, lungs are clear to auscultation, no wheezing, rales or rhonchi Back: non-tender GI: Soft, diffuse tenderness. Bowel sounds are hypoactive. Musculoskeletal: The patient has no evidence of calf tenderness, no pitting edema, symmetrical pulses noted bilaterally Neurological: A&O, normal speech Psychiatric: Cooperative Constitutional Vital Signs, click to edit/add: Last Vital Signs Temp 97.8 F 08/30/24 08:32 Pulse 104 H 08/30/24 10:30 Resp 17 08/30/24 10:30 BP 207/100 H 08/30/24 11:56 Pulse Ox 98 08/30/24 11:54 O2 Del Method Room Air 08/30/24 08:32 Course Vital Signs Vital signs: Vital Signs Pulse Oximetry 100 08/30/24 08:29 Temperature 97.8 F 08/30/24 08:32 Pulse Rate 104 H 08/30/24 10:30 Respiratory Rate 17 08/30/24 10:30 Blood Pressure 207/100 H 08/30/24 11:56 Pulse Oximetry 98 08/30/24 11:54 Oxygen Delivery Method Room Air 08/30/24 08:32 Medical Decision Making MDM Narrative Medical decision making narrative: Partial distal small bowel obstruction is identified. NG tube inserted. Blood work is nonspecific. Patient is requesting transfer to [facility] and I spoke to Dr. Womack, general surgeon, there who accepts the patient. Case also discussed with the hospitalist, Tanisha Chaudhry. She stable and agreeable for transfer. Differential Diagnosis Differential Diagnosis: Small bowel obstruction, constipation, diverticulitis, colitis Lab Data Lab results reviewed: Yes I reviewed the patient's lab results Labs: Lab Results 08/30/24 08/30/24 Range/Units 08:35 08:39 WBC 12.3 H (4.0-11.0) 10^3/uL RBC 5.14 (4.20-5.40) 10^6/uL Hgb 15.2 (12.0-16.0) g/dL Hct 44.7 (36.0-48.0) % MCV 87.0 (81.0-99.0) fL MCH 29.6 (26.7-34.0) pg MCHC 34.0 (29.9-35.2) g/dL RDW 12.7 (11.0-15.0) % Plt Count 330 (150-450) 10^3/uL MPV 9.1 L (9.5-13.5) fL Neut % (Auto) 72.9 (43.0-75.0) % Lymph % (Auto) 19.9 L (20.5-60.0) % [place] % (Auto) 5.3 (1.7-12.0) % Eos % (Auto) 1.5 (0.9-7.0) % Baso % (Auto) 0.2 (0.2-2.0) % Neut # (Auto) 8.9 H (1.4-6.5) 10^3/uL Lymph # (Auto) 2.5 (1.2-3.8) 10^3/uL [place] # (Auto) 0.7 (0.3-0.8) 10^3/uL Eos # (Auto) 0.2 (0.0-0.7) 10^3/uL Baso # (Auto) 0.0 (0.0-0.1) 10^3/uL Abs Immat Gran (auto) 0.03 (0.00-0.03) 10^3/uL Imm/Tot Granulo (auto) 0.2 (0.0-0.5) % Sodium 140 (136-145) mmol/L Potassium 4.7 (3.5-5.1) mmol/L Chloride 99 (98-107) mmol/L Carbon Dioxide 32.7 H (21.0-32.0) mmol/L Anion Gap 13.0 BUN 20.0 H (7.0-18.0) mg/dL Creatinine 0.63 (0.55-1.02) mg/dL Est GFR ( Amer) >60 (>=60 mL/min/1.73m^2) Est GFR (Non-Af Amer) >60 (>=60 mL/min/1.73m^2) BUN/Creatinine Ratio 31.7 Glucose 109 H (74-106) mg/dL Calcium 10.3 H (8.5-10.1) mg/dL Total Bilirubin 0.5 (0.2-1.0) mg/dL Direct Bilirubin 0.1 (0.0-0.2) mg/dL AST 35 (15-37) U/L ALT 27 (14-59) U/L Alkaline Phosphatase 84 (46-116) U/L Total Protein 8.5 H (6.4-8.2) g/dL Albumin 4.0 (3.4-5.0) g/dL Globulin 4.5 g/dL Albumin/Globulin Ratio 0.9 Amylase 86 (25-115) U/L Lipase 37.0 (16.0-77.0) U/L Urine Color Yellow (YELLOW) Urine Clarity Clear (CLEAR) Urine pH 8.0 (5.0-9.0) Ur Specific [place] 1.020 (1.005-1.025) Urine Protein 30 A (NEG/TRACE) mg/dL Urine Glucose (UA) Negative (NEGATIVE) mg/dL Urine Ketones Trace A (NEGATIVE) mg/dL Urine Occult Blood Negative (NEGATIVE) Urine Nitrite Negative (NEGATIVE) Urine Bilirubin Negative (NEGATIVE) Urine Urobilinogen 0.2 (0.2-1.0) EU/dL Ur Leukocyte Esterase Trace A (NEGATIVE) Urine RBC 2-5 A (0-2) #/HPF Urine WBC 10-20 A (NONE SEEN) #/HPF Ur Squamous Epith Cells Few A (NONE/RARE) #/LPF Ur Transition Epith Cell Rare A (NONE SEEN) #/LPF Urine Crystals None seen (None Seen) #/HPF Urine Bacteria Trace A (NONE SEEN) #/HPF Urine Casts None seen (NONE SEEN) #/LPF Urine Mucus Trace A (NONE SEEN) Ur Culture Indicated? [place] [place] scan - abdomen: Radiologist's impression: ITS Impressions Abdomen/Pelvis CT 08/30/24 08:53 IMPRESSION: DISTENDED FLUID CONTAINING SMALL BOWEL LOOPS RAISING THE POSSIBILITY OF DISTAL PARTIAL SMALL BOWEL OBSTRUCTION. CORRELATION AND FOLLOW-UP ARE RECOMMENDED. NO OBSTRUCTIVE UROPATHY. PARAUMBILICAL AND UMBILICAL HERNIAS, DESCRIBED. Impression dictated by: Hazel Hilliard M.D. 08/30/2024 9:57 AM Dictation Location: [place] [id number] Electronically authenticated by: [id number] Y Date: 08/30/2024 09:57 ECG Data Attestation: I personally reviewed and interpreted this ECG as follows: (EKG on my interpretation shows sinus rhythm with a rate of 76 and no acute change) Discharge Plan Discharge Chief Complaint: Abdominal Pain Clinical Impression: Partial small bowel obstruction Patient Disposition: [facility] Time of Disposition Decision: 11:25 Discharge Location: [facility] Condition: Fair Mode of Transportation: EMS
[2024-08-30 08:50] LABS: Bilirubin Urine NEGATIVE (NEGATIVE); Blood Urine NEGATIVE (NEGATIVE); Clarity Urine CLEAR (CLEAR); Color Urine YELLOW (YELLOW); Glucose Urine UA NEGATIVE (NEGATIVE); Ketones Urine TRACE mg/dL (NEGATIVE); Leukocyte Esterase Urine TRACE (NEGATIVE); Nitrite Urine NEGATIVE (NEGATIVE); Protein Urine 30 mg/dL (NEG/TRACE); Urobilinogen Urine 0.2 EU/dL (0.2-1.0)
[2024-08-30 08:50] LABS: Basophils Percent Auto 0.2 % (0.2-2.0); Eosinophils Absolute Auto 0.2 10^3/uL (0.0-0.7); Eosinophils Percent Auto 1.5 % (0.9-7.0); Hematocrit 44.7 % (36.0-48.0); Hemoglobin 15.2 g/dL (12.0-16.0); Immature Granulocytes Abs Auto 0.03 10^3/uL (0.00-0.03); Immature Granulocytes Pct Auto 0.2 % (0.0-0.5); Lymphocytes Absolute Auto 2.5 10^3/uL (1.2-3.8); Lymphocytes Percent Auto 19.9 % (20.5-60.0); Mean Corpuscular Hemoglobin 29.6 pg (26.7-34.0); Mean Platelet Volume 9.1 fL (9.5-13.5); Monocytes Absolute Auto 0.7 10^3/uL (0.3-0.8); Monocytes Percent Auto 5.3 % (1.7-12.0); Neutrophils Absolute Auto 8.9 10^3/uL (1.4-6.5); Neutrophils Percent Auto 72.9 % (43.0-75.0); Platelet Count 330 10^3/uL (150-450); Red Blood Count 5.14 10^6/uL (4.20-5.40); Red Cell Distribution Width 12.7 % (11.0-15.0); White Blood Count 12.3 10^3/uL (4.0-11.0)
--- OUTSIDE RECORDS SUMMARY | 2024-08-30 08:50 | XMS_ITS | CCD ---
Author Organization [facility] Care Team Providers Care Chaperone Name Role Phone Carol Mckinney Unavailable ANNMARIE, [...] Unavailable DARYL, DR HARLAN Esposito Admitting [facility] Attending Unavailable [facility] DR HARLAN Esposito Primary Care Unavailable [facility] DR HARLAN Esposito Consulting Unavailable [place], DR GINI Chacon Consulting Unavailable DO Harlan Almeida Primary Care Provider [phone] MD Xena Longo Attending Provider DANA Mckinney Attending Provider [phone] Harmony Khan Unavailable Harlan Almeida DO Primary Care Provider FERCHO HAM Attending Unavailable HARLAN ALMEIDA Primary Care Unavailab QUIN Rodriguez Attending Unavailable JENNIFERLOINES, HARLAN OVERTON Primary Care Unavailab FERCHO Mantilla Attending Unavailable HARLAN ALMEIDA Primary Care Unavailab FERCHO Mantilla Attending Unavailable JENNIFERLOINES, HARLAN OVERTON Primary Care Unavailab FERCHO Mantilla Attending Unavailable FURLONG HARLAN BROOKLYNN Primary Care Unavailab le CLAYTON HAWLEY Attending Unavailab le FURLONG, HARLAN BROOKLYNN Primary Care Unavailab le CLAYTON HAWLEY Admitting Unavailab le FURLONG, HARLAN OVERTON Primary Care Unavailab le FURLONG, HARLAN BROOKLYNN Referring Unavailab michelle FERCHO HAM Kevin Attending Unavailable FURLONG, HARLANASH JOSHIARD Primary Care Unavailab le FURLONG, HARLAN BROOKLYNN Primary Care Unavailab le [place] Harlan MOISE Primary Care Provider BRANDON EARL Attending Unavailable FURLONGHARLAN Referring Unavailable FURLONG, HARLAN Esposito Primary Care Unavailable OLAF ANGUIANO Attending Unavailable FURLONG, HARLAN Esposito Referring Unavailable FURLONG, HARLAN Esposito Primary Care Unavailable FURLONGHARLAN Attending Unavailable FURLONG, HARLAN Esposito Referring Unavailable FURLONG, HARLAN Esposito Primary Care Unavailable OLAF ANGUIANO Attending Unavailable FURLONG, HARLAN Esposito Referring Unavailable FURLONG, HARLAN Esposito Primary Care Unavailable FURLONG, HARLAN Esposito Attending Unavailable FURLONGHARLAN Referring Unavailable FURLONGHARLAN Primary Care Unavailable LEONCIO BINGHAM Attending Unavailable FURLONG, HARLAN Esposito Referring Unavailable FURLONG, HARLAN Esposito Primary Care Unavailable LEONCIO BINGHAM Referring Unavailable FURLONG, HARLAN Esposito Primary Care Unavailable LEONCIO BINGHAM Referring Unavailable FURLONG, HARLAN Esposito Primary Care Unavailable [place] Harlan RAMOS Primary Care Provider [phone] Deepak Longo MD Attending Provider Harlan Almeida MD Primary Care Provider [phone] MEÑO GOMEZ Attending Unavailable MEÑO GOMEZ Referring Unavailable TAWANNA ESTRELLA Attending Unavailable MAC TONEY Attending Unavailable MEÑO GMOEZ Attending Unavailable MEÑO GOMEZ Referring Unavailable MEÑO GOMEZ Attending Unavailable Deepak Longo Admitting Unavailab Deepak Verduzco Attending Unavailab le JenniferlongHarlan Primary Care Unavailable Medications Current Medications Medication Drug Class(es) [...] (1 source) Opioid Agonist HYDROcodone-acet am inophen ([place]) 5-325 mg tablet Take by mouth. 0 Active [id number] actuat albuterol 0.09 mg/actuat metered dose [...] Active docusate sodium 50 mg / sennosides, mcfp 8.6 mg oral tablet (2 sources) Start: 02-25-2023 End: 03-04-2023 take 1 tablet by mouth once daily sennosides-docusa te sodium (Shirlene-Colace) 8.6-50 mg tablet Indications: CSF leak Take 1 tablet by mouth once daily for 7 days. 7 tablet 0 02/25/2023 03/04/2023 Active Start: 02-22-2023 take 2 tablets by mo [facility] twice daily 2 tablet, oral, 2 times [...] at 1256 Start: 02-03-2020 End: 04-01-2020 take 1 capsule by mouth three times daily Hydroxyzine Pamoate 25 mg Capsule Discontinued 25 MG PO Three times daily February 08, 2020 1:00am April 01, 2020 7:16am take 1 capsule by [facility] every eight hours as needed hydrOXYzine pamoate (Vistaril) 50 MG capsule Take 50 mg by mouth every 8 (eight) hours if needed Active take 1 capsule by mo [facility] three times daily as needed hydrOXYzine pamoate (Vistaril) 50 mg capsule Take 1 capsule (50 mg) by mouth 3 times a day as needed for itching. 0 Active take 1 capsule by mo [facility] every eight hours Vistaril 25 MG 1 capsule as needed Orally every 8 hrs Active lamoTRIgine 100 mg oral tablet (20 sources) Mood Stabilizer, Anti-epileptic Agent Start: 06-12-2024 take 1 tablet by mouth twice daily Lamotrigine 100 mg tablet Active 100 MG PO Twice daily June 12, 2024 12:00am Start: 12-22-2022 take 1 tablet by [facility] twice daily lamoTRIgine (LaMICtal) 100 mg tablet [...] pain severe (7-10), first line, Starting on 02/22/23 at 1256 May be given with acetaminophen [...] Start: 12-21-2023 take 2 tablets by mo [facility] once at bedtime primidone (Mysoline) 50 MG [...] take 2 tablets by mouth at bedtime [place] Carbonate 300 mg Tablet Extended Release Discontinued 600 MG PO Bedtime 60 February 08, 2020 1:00am April 01, 2020 7:16am Start: 02-08-2020 End: 04-01-2020 take 600 mg by mouth at bedtime [place] Carbonate Disc ontinued 600 MG PO Bedtime 60 February 08, 2020 12:00am April 01, 2020 6:16am Start: 02-03-2020 End: 02-08-2020 take 1 capsule by mouth twice daily [place] Carbonate 300 mg capsule Discontinued 300 MG [...] discussed. Consent was given by the patient. [facility] Meño Gomez NP 07/06/2024 2:09 PM L Inj/Asp: L knee on 07/06/2024 2:07 PM Indications: pain Details: 21 G needle, anterolateral approach Medications: 40 mg methylPREDNISolone acetate 40 MG/ML Outcome: tolerated well, no immediate complications Site was cleaned with isopropyl alcohol Procedure, treatment alternatives, risks and benefits explained, specific risks discussed. Consent was given by the patient. [facility] [employer] XR Knee - left 1 or 2 Viewso n 07-06-2024 Imaging Result: 07/06/2024: AP and lateral views of left knee showed severe osteoarthritis with valgus deformity with fyph-iq-fsra articulation, flattening of the articular surfaces to the medial joint line lateral joint line and patellofemoral joint. Subchondral sclerosis was noted at the medial joint line surfaces as well as the lateral joint line and patellofemoral joint. Marginal osteophytic formation was noted tricompartmentally. There is no evidence of fracture or dislocation. 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 Subchondral sclerosis was noted at the medial joint line surfaces as well as the lateral joint line and patellofemoral joint. Marginal osteophytic formation was noted tricompartmentally. There is no evidence of fracture or dislocation. Impression: severe degenerative joint disease right knee with valgus deformity Meño Gomez APRN-TAGMAN [facility] [employer] Radiology Study observation (narrative) [facility] [employer] No Panel Informationon 03-16 Meño Gomez NP 03/16/2024 9:36 AM L Inj/Asp: L knee on 03/16/2024 9:34 AM Indications: pain Details: 21 G needle, anterolateral approach Medications: 40 mg methylPREDNISolone acetate 40 MG/ML Outcome: tolerated well, no immediate complications Site was cleaned with isopropyl alcohol Procedure, treatment alternatives, risks and benefits explained, specific risks discussed. Consent was given by the patient. [facility] [employer] Meño Gomez NP 03/16/2024 9:36 AM L Inj/Asp: R knee on 03/16/2024 9:34 AM Indications: pain Details: 21 G needle, anterolateral approach Medications: 40 mg methylPREDNISolone acetate 40 MG/ML Outcome: tolerated well, no immediate complications Site cleaned with isopropyl alcohol Procedure, treatment alternatives, risks and benefits explained, specific risks discussed. Consent was given by the patient. [facility] [employer] VAGINITIS PANEL PCRon 2023 VAGINITIS PANEL [...] clinical presentation to determine patient diagnosis. Normal [facility] Comment on above: Performed By: #### V PPCR #### [facility] ([id number]) [address] [place] [address], [address] [place] [address] [facility] FERRITINon 12-21-2023 Ferritin [Mass/Vol] 178 ng/mL 8.0 - 25 2.0 ng/mL [facility] [employer] [employer] [facility] No Panel Informationon 12-20 Meño Gomez NP 12/21/2023 3:59 PM L Inj/Asp: L knee on 12/21/2023 3:59 PM Indications: pain Details: 21 G needle, anterolateral approach Medications: 40 mg methylPREDNISolone acetate 40 MG/ML Outcome: tolerated well, no immediate complications Site was cleaned with isopropyl alcohol Procedure, treatment alternatives, risks and benefits explained, specific risks discussed. Consent was given by the patient. [facility] [employer] Magnesiumon 02-25-2023 Magnesium [Mass/Vol] 1.55 mg/dL Low 1.60 - 2.40 mg/dL [facility] Magnesium [Mass/Vol] 1.55 mg/dL Low 1.60-2.40 [facility] Comment on above: Performed By: #### 3 4529-8 #### REGGIE Baugh ([id number]) [facility] ([facility]) [id number] [place] [address] No Panel Informationon 02-25 Interpretation and review of laboratory results Abnormal [facility] Renal function 2000 panelon 02-25-2023 Albumin BCP dye [Mass/Vol] 3.8 g/dL 3.4 - 5.0 g/dL [facility] Anion gap [Moles/Vol] 13 mmol/L 10 - 20 mmol/L [facility] Calcium [Mass/Vol] 9.2 mg/dL 8.6 - 10. 6 mg/dL [facility] Chloride [Moles/Vol] 100 mmol/L 98 - 107 mmol/L [facility] CO2 [Moles/Vol] 29 mmol/L 21 - 32 mmol/L [facility] Creatinine [Mass/Vol] 0.61 mg/dL 0.50 - 1.05 mg/dL [facility] GFR/1.73 sq M.predicted MDRD (S/P/Bld) [Vol rate/Area] - PINF [facility] Comment on above: Calculations of kortney mated GFR are performed using the 2020 CKD-EPI Study Refit equation without the race variable for the IDMS-Traceable creatinine methods. https://jasn.asnjournals.org/content//ASN.70679621 88 Glucose [Mass/Vol] 121 mg/dL High 74 - 99 mg/dL [facility] Phosphate [Mass/Vol] 2.9 mg/dL 2.5 - 4.9 mg/dL [facility] Comment on above: The performance hina acteristics of phosphorus testing in heparinized plasma have been validated by the individual laboratory site where testing is performed. Testing on heparinized plasma is not approved by the FDA; however, such approval is not necessary. Potassium [Moles/Vol] 4.4 mmol/L 3.5 - 5.3 mmol/L [facility] Sodium [Moles/Vol] 138 mmol/L 136 - 145 mmol/L [facility] Urea nitrogen [Mass/Vol] 11 mg/dL 6 - 23 mg/dL [facility] Albumin BCP dye [Mass/Vol] 3.8 g/dL Normal 3.4-5.0 [facility] Comment on above: Performed By: #### 3 4529-8 #### REGGIE Baugh ([id number]) [facility] ([facility]) [id number] [place] [address]69 Anion gap [Moles/Vol] 13 mmol/L Normal 10-20 [facility] Comment on above: Performed By: #### 3 4529-8 #### REGGIE Baugh ([id number]) [facility] ([facility]) [address] [place] [address]388 Calcium [Mass/Vol] 9.2 mg/dL Normal 8.6-10.6 [facility] Comment on above: Performed By: #### 3 4529-8 #### REGGIE Baugh ([id number]) [facility] ([facility]) [address] [place] [address]390 Chloride [Moles/Vol] 100 mmol/L Normal 98-107 [facility] Comment on above: Performed By: #### 3 4529-8 #### REGGIE Baugh ([id number]) [facility] ([facility]) [id number] [place] [address] 27291 CO2 [Moles/Vol] 29 mmol/L Normal 21-32 [facility] Comment on above: Performed By: #### 3 4529-8 #### REGGIE Baugh ([id number]) [facility] ([facility]) [id number] [place] [address]737 Creatinine [Mass/Vol] 0.61 mg/dL Normal 0.50-1.05 [facility] Comment on above: Performed By: #### 3 4529-8 #### REGGIE Baugh ([id number]) [facility] ([facility]) [address] [place] [address] 29608 GFR/1.73 sq M.predicted MDRD (S/P/Bld) [Vol rate/Area] mL/min/{1.73_m2} Normal >60 [facility] Comment on above: Result Comment: Calc ulations of estimated GFR are performed using the 2020 CKD-EPI Study Refit equation without the race variable for the IDMS-Traceable creatinine methods. https://jasn.asnjournals.org/content//ASN.27207457 88 Performed By: #### 3 4529-8 #### REGGIE Baugh ([id number]) [facility] ([facility]) [address] [place] [address] Glucose [Mass/Vol] 121 mg/dL High 74-99 [facility] Comment on above: Performed By: #### 3 4529-8 #### REGGIE Baugh ([id number]) [facility] ([facility]) [address] [place] [address] Phosphate [Mass/Vol] 2.9 mg/dL Normal 2.5-4.9 [facility] Comment on above: Result Comment: The performance characteristics of phosphorus testing in heparinized plasma have been validated by the individual laboratory site where testing is performed. Testing on heparinized plasma is not approved by the FDA; however, such approval is not necessary. Performed By: #### 3 4529-8 #### REGGIE Baugh ([id number]) [facility] ([facility]) [address] [place] [address] Potassium [Moles/Vol] 4.4 mmol/L Normal 3.5-5.3 [facility] Comment on above: Performed By: #### 3 4529-8 #### REGGIE Baugh ([id number]) [facility] ([facility]) [address] [place] [address] Sodium [Moles/Vol] 138 mmol/L Normal 136-145 [facility] Comment on above: Performed By: #### 3 4529-8 #### REGGIE Baugh ([id number]) [facility] ([facility]) [address] [place] [address]47[address] Urea nitrogen [Mass/Vol] 11 mg/dL Normal 6-23 [facility] Comment on above: Performed By: #### 3 4529-8 #### REGGIE Baugh ([id number]) [facility] ([facility]) [address] [place] [address] 16676 Glucose Test strip manual (B ld) [Mass/Vol]on 02-24-2023 Glucose [Mass/Vol] 121 mg/dL High 74 - 99 mg/dL [facility] Interpretation and review of laboratory results Abnormal [facility] Glucose [Mass/Vol] 121 mg/dL High 74-99 [facility] Comment on above: Performed By: #### 3 4529-8 #### REGGIE Baugh ([id number]) [facility] ([facility]) [address] [place] [address] 92345 Glucose [Mass/Vol] 107 mg/dL High 74 - 99 mg/dL [facility] Interpretation and review of laboratory results Abnormal [facility] Glucose [Mass/Vol] 107 mg/dL High 74-99 [facility] Comment on above: Performed By: #### 3 4529-8 #### REGGIE Baugh ([id number]) [facility] ([facility]) [address] [place] [address] 21781 Glucose [Mass/Vol] 100 mg/dL High 74 - 99 mg/dL [facility] Interpretation and review of laboratory results Abnormal [facility] Glucose [Mass/Vol] 100 mg/dL High 74-99 [facility] Comment on above: Performed By: #### 3 4529-8 #### REGGIE Baugh ([id number]) [facility] ([facility]) [address] [place] [address] 64216 CBC W Auto Differential pane l (Bld)on 02-23-2023 Basophils (Bld) [#/Vol] 0.02 10*3/uL [facility] Basophils/100 WBC (Bld) 0.2 % 0.0 - 2.0 % [facility] Eosinophils (Bld) [#/Vol] 0.03 10*3/uL [facility] Eosinophils/100 WBC (Bld) 0.3 % 0.0 - 6.0 % [facility] Erythrocyte distribution width (RBC) [Ratio] 13.2 % 11.5 - 14.5 % [facility] Hematocrit (Bld) [Volume fraction] 37.0 % 36.0 - 46.0 % [facility] Hemoglobin (Bld) [Mass/Vol] 12.0 g/dL 12.0 - 16.0 g/dL [facility] Immature granulocytes (Bld) [#/Vol] 0.02 10*3/uL [facility] Immature granulocytes/100 WBC (Bld) 0.2 % 0.0 - 0.9 % [facility] Comment on above: Immature Granulocyte Count (IG) includes promyelocytes, myelocytes and metamyelocytes but does not include bands. Percent differential counts (%) should be interpreted in the context of the absolute cell counts (cells/UL). Interpretation and review of laboratory results Abnormal [facility] Lymphocytes (Bld) [#/Vol] 1.95 10*3/uL [facility] Lymphocytes/100 WBC (Bld) 18.2 % 13.0 - 44.0 % [facility] MCH (RBC) [Entitic mass] 28.7 pg 26.0 - 34.0 pg [facility] MCHC (RBC) [Mass/Vol] 32.4 g/dL 32.0 - 36.0 g/dL [facility] MCV (RBC) [Entitic vol] 89 fL 80 - 100 fL [facility] Monocytes (Bld) [#/Vol] 0.66 10*3/uL [facility] Monocytes/100 WBC (Bld) 6.2 % 2.0 - 10.0 % [facility] Neutrophils (Bld) [#/Vol] 8.01 10*3/uL High [facility] Comment on above: Percent differential counts (%) should be interpreted in the context of the absolute cell counts (cells/uL). Neutrophils/100 WBC (Bld) 74.9 % 40.0 - 80.0 % [facility] Nucleated RBC/100 WBC (Bld) [Ratio] 0.0 % [facility] Platelets (Bld) [#/Vol] 250 10*3/uL [facility] RBC (Bld) [#/Vol] 4.18 10*6/uL [facility] WBC (Bld) [#/Vol] 10.7 10*3/uL [facility] Basophils (Bld) [#/Vol] 0.02 x10*3/uL Normal 0.00-0.10 [facility] Comment on above: Performed By: #### 3 4529-8 #### REGGIE Baugh ([id number]) [facility] ([facility]) [address] [place] [address] 49841 Basophils/100 WBC (Bld) 0.2 % Normal 0.0-2.0 [facility] Comment on above: Performed By: #### 3 4529-8 #### REGGIE Baugh ([id number]) [facility] ([facility]) [address] [place] [address] 63430 Eosinophils (Bld) [#/Vol] 0.03 x10*3/uL Normal 0.00-0.70 [facility] Comment on above: Performed By: #### 3 4529-8 #### REGGIE Baugh ([id number]) [facility] ([facility]) [address] [place] [address] 77017 Eosinophils/100 WBC (Bld) 0.3 % Normal 0.0-6.0 [facility] Comment on above: Performed By: #### 3 4529-8 #### REGGIE Baugh ([id number]) [facility] ([facility]) [address] [place] [address] 78565 Erythrocyte distribution width (RBC) [Ratio] 13.2 % Normal 11.5-14.5 [facility] Comment on above: Performed By: #### 3 4529-8 #### REGGIE Baugh ([id number]) [facility] ([facility]) [address] [place] [address] Hematocrit (Bld) [Volume fraction] 37.0 % Normal 36.0-46.0 [facility] Comment on above: Performed By: #### 3 4529-8 #### REGGIE Baugh ([id number]) [facility] ([facility]) [address] [place] [address] 29221 Hemoglobin (Bld) [Mass/Vol] 12.0 g/dL Normal 12.0-16.0 [facility] Comment on above: Performed By: #### 3 4529-8 #### REGGIE Baugh ([id number]) [facility] ([facility]) [address] [place] [address] 85926 Immature granulocytes (Bld) [#/Vol] 0.02 x10*3/uL Normal 0.00-0.70 [facility] Comment on above: Performed By: #### 3 4529-8 #### REGGIE Baugh ([id number]) [facility] ([facility]) [address] [place] [address] 11920 Immature granulocytes/100 WBC (Bld) 0.2 % Normal 0.0-0.9 [facility] Comment on above: Result Comment: [place] ture Granulocyte Count (IG) includes promyelocytes, myelocytes and metamyelocytes but does not include bands. Percent differential counts (%) should be interpreted in the context of the absolute cell counts (cells/UL). Performed By: #### 3 4529-8 #### REGGIE Baugh ([id number]) [facility] ([facility]) [address] [place] [address] 04888 Lymphocytes (Bld) [#/Vol] 1.95 x10*3/uL Normal 1.20-4.80 [facility] Comment on above: Performed By: #### 3 4529-8 #### REGGIE Baugh ([id number]) [facility] ([facility]) [id number] [place] [address] 98945 Lymphocytes/100 WBC (Bld) 18.2 % Normal 13.0-44.0 [facility] Comment on above: Performed By: #### 3 4529-8 #### REGGIE Baugh ([id number]) [facility] ([facility]) [address] [place] [address] MCH (RBC) [Entitic mass] 28.7 pg Normal 26.0-34.0 [facility] Comment on above: Performed By: #### 3 4529-8 #### REGGIE Baugh ([id number]) [facility] ([facility]) [id number] [place] [address] 56321 MCHC (RBC) [Mass/Vol] 32.4 g/dL Normal 32.0-36.0 [facility] Comment on above: Performed By: #### 3 4529-8 #### REGGIE Baugh ([id number]) [facility] ([facility]) [id number] [place] [address] 82908 MCV (RBC) [Entitic vol] 89 fL Normal 80-100 [facility] Comment on above: Performed By: #### 3 4529-8 #### REGGIE Baugh ([id number]) [facility] ([facility]) [address] [place] [address] 32328 Monocytes (Bld) [#/Vol] 0.66 x10*3/uL Normal 0.10-1.00 [facility] Comment on above: Performed By: #### 3 4529-8 #### REGGIE Baugh ([id number]) [facility] ([facility]) [id number] [place] [address] 73911 Monocytes/100 WBC (Bld) 6.2 % Normal 2.0-10.0 [facility] Comment on above: Performed By: #### 3 4529-8 #### REGGIE Baugh ([id number]) [facility] ([facility]) [address] [place] [address] 84619 Neutrophils (Bld) [#/Vol] 8.01 x10*3/uL High 1.20-7.70 [facility] [facility] Comment on above: Result Comment: Perc ent differential counts (%) should be interpreted in the context of the absolute cell counts (cells/uL). Performed By: #### 3 4529-8 #### REGGIE Baugh ([id number]) [facility] ([facility]) [address] [place] [address] Neutrophils/100 WBC (Bld) 74.9 % Normal 40.0-80.0 [facility] Comment on above: Performed By: #### 3 4529-8 #### REGGIE Baugh ([id number]) [facility] ([facility]) [address] [place] [address] 20332 Nucleated RBC/100 WBC (Bld) [Ratio] 0.0 /100 WBCs Normal 0.0-0.0 [facility] Comment on above: Performed By: #### 3 4529-8 #### REGGIE Baugh ([id number]) [facility] ([facility]) [address] [place] [address] 26176 Platelets (Bld) [#/Vol] 250 x10*3/uL Normal 150-450 [facility] Comment on above: Performed By: #### 3 4529-8 #### REGGIE Baugh ([id number]) [facility] ([facility]) [address] [place] [address] 14217 RBC (Bld) [#/Vol] 4.18 x10*6/uL Normal 4.00-5.20 [facility] Comment on above: Performed By: #### 3 4529-8 #### REGGIE Baugh ([id number]) [facility] ([facility]) [id number] [place] [address] 00550 WBC (Bld) [#/Vol] 10.7 x10*3/uL Normal 4.4-11.3 [facility] Comment on above: Performed By: #### 3 4529-8 #### REGGIE Baugh ([id number]) [facility] ([facility]) [address] [place] [address] 23273 Magnesiumon 02-23-2023 Magnesium [Mass/Vol] 1.52 mg/dL Low 1.60 - 2.40 mg/dL [facility] Magnesium [Mass/Vol] 1.52 mg/dL Low 1.60-2.40 [facility] Comment on above: Performed By: #### 3 4529-8 #### REGGIE Baugh ([id number]) [facility] ([facility]) [address] [place] [address] No Panel Informationon 02-23 Interpretation and review of laboratory results Abnormal [facility] Renal function 2000 panelon 02-23-2023 Albumin BCP dye [Mass/Vol] 3.5 g/dL 3.4 - 5.0 g/dL [facility] Anion gap [Moles/Vol] 10 mmol/L 10 - 20 mmol/L [facility] Calcium [Mass/Vol] 8.8 mg/dL 8.6 - 10. 6 mg/dL [facility] Chloride [Moles/Vol] 100 mmol/L 98 - 107 mmol/L [facility] CO2 [Moles/Vol] 31 mmol/L 21 - 32 mmol/L [facility] Creatinine [Mass/Vol] 0.47 mg/dL Low 0.50 - 1.05 mg/dL [facility] GFR/1.73 sq M.predicted MDRD (S/P/Bld) [Vol rate/Area] - PINF [facility] Comment on above: Calculations of kortney mated GFR are performed using the 2020 CKD-EPI Study Refit equation without the race variable for the IDMS-Traceable creatinine methods. https://jasn.asnjournals.org/content//ASN.71624664 88 Glucose [Mass/Vol] 114 mg/dL High 74 - 99 mg/dL [facility] Phosphate [Mass/Vol] 3.5 mg/dL 2.5 - 4.9 mg/dL [facility] Comment on above: The performance hina acteristics of phosphorus testing in heparinized plasma have been validated by the individual laboratory site where testing is performed. Testing on heparinized plasma is not approved by the FDA; however, such approval is not necessary. Potassium [Moles/Vol] 4.1 mmol/L 3.5 - 5.3 mmol/L [facility] Sodium [Moles/Vol] 137 mmol/L 136 - 145 mmol/L [facility] Urea nitrogen [Mass/Vol] 13 mg/dL 6 - 23 mg/dL [facility] Albumin BCP dye [Mass/Vol] 3.5 g/dL Normal 3.4-5.0 [facility] Comment on above: Performed By: #### 3 4529-8 #### REGGIE Baugh ([id number]) [facility] ([facility]) [address] [place] [address] 80842 Anion gap [Moles/Vol] 10 mmol/L Normal 10-20 [facility] Comment on above: Performed By: #### 3 4529-8 #### REGGIE Baugh ([id number]) [facility] ([facility]) [address] [place] [address] 49375 Calcium [Mass/Vol] 8.8 mg/dL Normal 8.6-10.6 [facility] Comment on above: Performed By: #### 3 4529-8 #### REGGIE Baugh ([id number]) [facility] ([facility]) [address] [place] [address] 29268 Chloride [Moles/Vol] 100 mmol/L Normal 98-107 [facility] Comment on above: Performed By: #### 3 4529-8 #### REGGIE Baugh ([id number]) [facility] ([facility]) [address] [place] [address] 71174 CO2 [Moles/Vol] 31 mmol/L Normal 21-32 [facility] Comment on above: Performed By: #### 3 4529-8 #### REGGIE QUEZADA L ([id number]) [facility] ([facility]) [address] [place] [address] 19293 Creatinine [Mass/Vol] 0.47 mg/dL Low 0.50-1.05 [facility] Comment on above: Performed By: #### 3 4529-8 #### REGGIE QUEZADA L ([id number]) [facility] ([facility]) [address] [place] [address] 68962 GFR/1.73 sq M.predicted MDRD (S/P/Bld) [Vol rate/Area] mL/min/{1.73_m2} Normal >60 [facility] Comment on above: Result Comment: Calc ulations of estimated GFR are performed using the 2020 CKD-EPI Study Refit equation without the race variable for the IDMS-Traceable creatinine methods. https://jasn.asnjournals.org/content//ASN.42601730 88 Performed By: #### 3 4529-8 #### REGGIE Baugh ([id number]) [facility] ([facility]) [address] [place] [address] 01560 Glucose [Mass/Vol] 114 mg/dL High 74-99 [facility] Comment on above: Performed By: #### 3 4529-8 #### REGGIE Baugh ([id number]) [facility] ([facility]) [address] [place] [address] 32250 Phosphate [Mass/Vol] 3.5 mg/dL Normal 2.5-4.9 [facility] Comment on above: Result Comment: The performance characteristics of phosphorus testing in heparinized plasma have been validated by the individual laboratory site where testing is performed. Testing on heparinized plasma is not approved by the FDA; however, such approval is not necessary. Performed By: #### 3 4529-8 #### REGGIE Baugh ([id number]) [facility] ([facility]) [address] [place] [address] Potassium [Moles/Vol] 4.1 mmol/L Normal 3.5-5.3 [facility] Comment on above: Performed By: #### 3 4529-8 #### REGGIE Baugh ([id number]) [facility] ([facility]) [address] [place] [address] 63030 Sodium [Moles/Vol] 137 mmol/L Normal 136-145 [facility] Comment on above: Performed By: #### 3 4529-8 #### REGGIE Baugh ([id number]) [facility] ([facility]) [address] [place] [address] Urea nitrogen [Mass/Vol] 13 mg/dL Normal 6-23 [facility] Comment on above: Performed By: #### 3 4529-8 #### REGGIE Baugh ([id number]) [facility] ([facility]) [address] [place] [id number] CT HEAD WO IV CONTRASTon CT HEAD WO IV CONTRAST Interpreted By: Meenakshi Coker, STUDY: CT HEAD WO IV CONTRAST; 02/22/2023 12:48 pm INDICATION: Signs/Symptoms:s/p crani for tegmen defect repair. COMPARISON: CT head from 10/16/2022 ACCESSION NUMBER(S): [id number] ORDERING CLINICIAN: KATHERINE POLANCO TECHNIQUE: Noncontrast axial [...] Meenakshi Coker 02/22/2023 1:04 PM Dictation workstation: [id number] [facility] CT Head WO contraston 2022 Status post right temporal craniotomy with postsurgical repair along the right tegmen tympani. Signed by: Meenakshi Coker 02/22/2023 1:04 PM Dictation workstation: [id number] [facility] Interpreted By: Meenakshi Coker, STUDY: CT HEAD WO IV CONTRAST; 02/22/2023 12:48 pm INDICATION: Signs/Symptoms:s/p crani for tegmen defect repair. COMPARISON: CT head from 10/16/2022 ACCESSION NUMBER(S): [id number] ORDERING CLINICIAN: KATHERINE POLANCO TECHNIQUE: Noncontrast axial [...] COMPARISON: CT head from 10/16/2022 ACCESSION NUMBER(S): [id number] ORDERING CLINICIAN: KATHERINE POLANCO TECHNIQUE: Noncontrast axial [...] Meenakshi Coker 02/22/2023 1:04 PM Dictation workstation: [id number] [facility] Work Phone: Radiology Study observation (narrative) [facility] Work Phone: CT Head WO contrastOrdered B y: Meenakshi Coker on 02-22-2023 [facility] Work Phone: Glucose Test strip manual (B ld) [Mass/Vol]on 02-22-2023 Glucose [Mass/Vol] 107 mg/dL High 74 - 99 mg/dL [facility] Interpretation and review of laboratory results Abnormal [facility] Glucose [Mass/Vol] 107 mg/dL High 74-99 [facility] Comment on above: Performed By: #### 2 341-6 #### REGGIE Baugh ([id number]) [facility] ([facility]) [address] [place], [place] [address] Bacteria identifiedon 2022 Bacteria identified Cx Nom (U) Test: Urine Culture Specimen Source: Clean Catch/Voided Specimen Type: Urine Specimen Date: 02/17/2023 1:34 PM Result Date: 02/18/2023 11:30 AM Result Status: Final result Abnormal: No Resulting Lab: [facility] [address] [place] [address] CULTURE No significant growth Normal [facility] Comment on above: Performed By: #### 6 30-4 #### REGGIE Baugh ([id number]) [facility] ([facility]) [address] [place] [address] 89574 Basic metabolic 2000 panelon 02-17-2023 Anion gap [Moles/Vol] 16 mmol/L Normal 10-20 [facility] Comment on above: Performed By: #### 2 4321-2 #### REGGIE Baugh ([id number]) [facility] ([facility]) [address] [place], [place] [address] Calcium [Mass/Vol] 9.7 mg/dL Normal 8.6-10.6 [facility] Comment on above: Performed By: #### 2 4321-2 #### REGGIE Baugh ([id number]) [facility] ([facility]) [address] [place] [address] Chloride [Moles/Vol] 100 mmol/L Normal 98-107 [facility] Comment on above: Performed By: #### 2 4321-2 #### REGGIE Baugh ([id number]) [facility] ([facility]) [address] [place] [address] CO2 [Moles/Vol] 27 mmol/L Normal 21-32 [facility] Comment on above: Performed By: #### 2 4321-2 #### REGGIE Baugh ([id number]) [facility] ([facility]) [address] [place] [address] 38336 Creatinine [Mass/Vol] 0.62 mg/dL Normal 0.50-1.05 [facility] Comment on above: Performed By: #### 2 4321-2 #### REGGIE Baugh ([id number]) [facility] ([facility]) [address] [place] [address] 07895 GFR/1.73 sq M.predicted MDRD (S/P/Bld) [Vol rate/Area] mL/min/{1.73_m2} Normal >60 [facility] Comment on above: Result Comment: Calc ulations of estimated GFR are performed using the 2020 CKD-EPI Study Refit equation without the race variable for the IDMS-Traceable creatinine methods. https://jasn.asnjournals.org/content/early//ASN.95812313 88 Performed By: #### 2 4321-2 #### REGGIE Baugh ([id number]) [facility] ([facility]) [address] [place] [address] 66693 Glucose [Mass/Vol] 90 mg/dL Normal 74-99 [facility] Comment on above: Performed By: #### 2 4321-2 #### REGGIE Baugh ([id number]) [facility] ([facility]) [address] [place] [address] Potassium [Moles/Vol] 4.9 mmol/L Normal 3.5-5.3 [facility] Comment on above: Performed By: #### 2 4321-2 #### REGGIE Baugh ([id number]) [facility] ([facility]) [address] [place] [address] Sodium [Moles/Vol] 138 mmol/L Normal 136-145 [facility] Comment on above: Performed By: #### 2 4321-2 #### REGGIE Baugh ([id number]) [facility] ([facility]) [address] [place] [address] 66592 Urea nitrogen [Mass/Vol] 25 mg/dL High 6-23 [facility] Comment on above: Performed By: #### 2 4321-2 #### REGGIE Baugh ([id number]) [facility] ([facility]) [address] [place] [address] 68517 Blood type and Indirect anti body screen panel (Bld)on 02-17-2023 ABO group Nom (Bld) O [facility] Comment on above: Performed By: #### 3 4532-2 #### REGGIE Baugh ([id number]) [facility] ([facility]) [address] [place] [address] 13323 Blood group antibody screen Ql Negative [facility] Comment on above: Performed By: #### 3 4532-2 #### REGGIE Baguh ([id number]) [facility] ([facility]) [address] [place] [address] 24368 D Ag Ql (Bld) Positive [facility] Comment on above: Result Comment: 2nd ABO test required. Order and Collect VERAB Performed By: #### 3 4532-2 #### REGGIE Baugh ([id number]) [facility] ([facility]) [address] [place] [address] 20968 CBC panel Auto (Bld)on 02-17 Erythrocyte distribution width (RBC) [Ratio] 13.1 % Normal 11.5-14.5 [facility] Comment on above: Performed By: #### 5 8410-2 #### REGGIE Baugh ([id number]) [facility] ([facility]) [address] [place] [address] 61068 Hematocrit (Bld) [Volume fraction] 41.4 % Normal 36.0-46.0 [facility] Comment on above: Performed By: #### 5 8410-2 #### REGGIE Baugh ([id number]) [facility] ([facility]) [address] [place] [address] 76536 Hemoglobin (Bld) [Mass/Vol] 13.3 g/dL Normal 12.0-16.0 [facility] Comment on above: Performed By: #### 5 8410-2 #### REGGIE Baugh ([id number]) [facility] ([facility]) [address] [place] [address] 66698 MCH (RBC) [Entitic mass] 28.9 pg Normal 26.0-34.0 [facility] Comment on above: Performed By: #### 5 8410-2 #### REGGIE Baugh ([id number]) [facility] ([facility]) [address] [place] [address] 23115 MCHC (RBC) [Mass/Vol] 32.1 g/dL Normal 32.0-36.0 [facility] Comment on above: Performed By: #### 5 8410-2 #### REGGIE Baugh ([id number]) [facility] ([facility]) [address] [place] [address] 67955 MCV (RBC) [Entitic vol] 90 fL Normal 80-100 [facility] Comment on above: Performed By: #### 5 8410-2 #### REGGIE Baugh ([id number]) [facility] ([facility]) [address] [place] [address] 26761 Nucleated RBC/100 WBC (Bld) [Ratio] 0.0 /100 WBCs Normal 0.0-0.0 [facility] Comment on above: Performed By: #### 5 8410-2 #### REGGIE Baugh ([id number]) [facility] ([facility]) [address] [place] [address] Platelets (Bld) [#/Vol] 294 x10*3/uL Normal 150-450 [facility] Comment on above: Performed By: #### 5 8410-2 #### REGGIE Baugh ([id number]) [facility] ([facility]) [address] [place] [address] RBC (Bld) [#/Vol] 4.61 x10*6/uL Normal 4.00-5.20 [facility] Comment on above: Performed By: #### 5 8410-2 #### REGGIE Baugh ([id number]) [facility] ([facility]) [address] [place] [address] WBC (Bld) [#/Vol] 8.5 x10*3/uL Normal 4.4-11.3 [facility] Comment on above: Performed By: #### 5 8410-2 #### REGGIE Baugh ([id number]) [facility] ([facility]) [address] [place] [address] HbA1c (Bld) [Mass fraction]o n 02-17-2023 Average glucose Estimated from glycated hemoglobin (Bld) [Mass/Vol] 123 mg/dL Normal Not Established [facility] Comment on above: Order Comment: Diagn osis of Diabetes-Adults Non-Diabetic: < or = 5.6% Increased risk for developing diabetes: 5.7-6.4% Diagnostic of diabetes: > or = 6.5% Monitoring of Diabetes Age (y)....................... Therapeutic Goal (%) Adults: >18.........................<7.0 Pediatrics: 13-18...................<7.5 Pediatrics: 7-12....................<8.0 Pediatrics: 0-6..................... 7.5-8.5 [employer]. Diabetes Care 33(S1)Mar 2009 Performed By: #### 4 548-4 #### REGGIE Baugh ([id number]) [facility] ([facility]) [address] [place], [place] [address] Hemoglobin A1c/Hemoglobin.to gustavo 02-17-2023 HbA1c (Bld) [Mass fraction] 5.9 % High see below [facility] Comment on above: Order Comment: Diagn osis of Diabetes-Adults Non-Diabetic: < or = 5.6% Increased risk for developing diabetes: 5.7-6.4% Diagnostic of diabetes: > or = 6.5% Monitoring of Diabetes Age (y)....................... Therapeutic Goal (%) Adults: >18.........................<7.0 Pediatrics: 13-18...................<7.5 Pediatrics: 7-12....................<8.0 Pediatrics: 0-6..................... 7.5-8.5 [employer]. Diabetes Care 33(S1)Mar 2009 Performed By: #### 4 548-4 #### REGGIE Baugh ([id number]) [facility] ([facility]) [address] [place] [address] PT and aPTT panel Coag (PPP) on 02-17-2023 aPTT Coag (PPP) [Time] 36 s Normal 27-38 [facility] Comment on above: Order Comment: The A PTT is no longer used for monitoring Unfractionated Heparin Therapy. For monitoring Heparin Therapy, use the Heparin Assay. Performed By: #### 3 4529-8 #### REGGIE Baugh ([id number]) [facility] ([facility]) [address] [place] [address] INR Coag (PPP) [Relative time] 1.1 Normal 0.9-1.1 [facility] Comment on above: Order Comment: The A PTT is no longer used for monitoring Unfractionated Heparin Therapy. For monitoring Heparin Therapy, use the Heparin Assay. Performed By: #### 3 4529-8 #### REGGIE Baugh ([id number]) [facility] ([facility]) [address] [place], [place] [address] PT Coag (PPP) [Time] 12.8 s Normal 9.8-12.8 [facility] Comment on above: Order Comment: The A PTT is no longer used for monitoring Unfractionated Heparin Therapy. For monitoring Heparin Therapy, use the Heparin Assay. Performed By: #### 3 4529-8 #### REGGIE Baugh ([id number]) [facility] ([facility]) [address] [place] [address] Staphylococcus aureus.methic illin resistant isolateon 02-17-2023 MRSA isol Org specific cx Ql (Nose) Test: Staphylococcus aureus/MRSA colonization, Culture Specimen Source: Nares/Axilla/Groin Specimen Type: Swab Specimen Date: 02/17/2023 1:34 PM Result Date: 02/19/2023 7:40 AM Result Status: Final result Abnormal: No Resulting Lab: [facility] [address] [place] [address] CULTURE No Staphylococcus aureus isolated Normal [facility] Comment on above: Performed By: #### 5 2969-3 #### REGGIE Baugh ([id number]) [facility] ([facility]) [address] [place], [place] [address] Urinalysis complete W Reflex Culture panel (U)on 02-17-2023 Appearance (U) Clear Normal Clear [facility] Comment on above: Performed By: #### 5 8077-9 #### REGGIE Baugh ([id number]) [facility] ([facility]) [address] [place] [address] 01211 Bilirubin (U) [Mass/Vol] Negative Normal NEGATIVE [facility] Comment on above: Performed By: #### 5 8077-9 #### REGGIE Baugh ([id number]) [facility] ([facility]) [address] [place] [address] 59752 Color (U) Yellow Normal Straw, Yellow [facility] Comment on above: Performed By: #### 5 8077-9 #### REGGIE QUEZADA L ([id number]) [facility] ([facility]) [address] [place] [address] 02272 Glucose Auto test strip (U) [Mass/Vol] Negative Normal NEGATIVE [facility] Comment on above: Performed By: #### 5 8077-9 #### REGGIE Baugh ([id number]) [facility] ([facility]) [address] [place] [address] 48377 Ketones (U) [Mass/Vol] Negative Normal NEGATIVE [facility] Comment on above: Performed By: #### 5 8077-9 #### REGGIE Baugh ([id number]) [facility] ([facility]) [address] [place] [address] 89205 Leukocyte esterase Auto test strip Ql (U) SMALL (1+) Abnormal NEGATIVE [facility] Comment on above: Performed By: #### 5 8077-9 #### REGGIE Baugh ([id number]) [facility] ([facility]) [address] [place] [address] 89620 Nitrite Auto test strip Ql (U) Negative Normal NEGATIVE [facility] Comment on above: Performed By: #### 5 8077-9 #### REGGIE QUEZADA L ([id number]) [facility] ([facility]) [address] [place] [address] 74869 pH (U) 5.0 [pH] Normal 5.0, 5.5, 6.0, 6.5, 7.0, 7.5, 8.0 [facility] Comment on above: Performed By: #### 5 8077-9 #### REGGIE Baugh ([id number]) [facility] ([facility]) [address] [place] [address] 87727 Protein (U) [Mass/Vol] Negative Normal NEGATIVE [facility] Comment on above: Performed By: #### 5 8077-9 #### REGGIE QUEZADA L ([id number]) [facility] ([facility]) [address] [place] [address] 86930 RBC (U) [#/Vol] Negative Normal NEGATIVE [facility] Comment on above: Performed By: #### 5 8077-9 #### REGGIE Baugh ([id number]) [facility] ([facility]) [address] [place] [address] 06488 Specific gravity (U) [Rel density] 1.019 Normal 1.005-1.035 [facility] Comment on above: Performed By: #### 5 8077-9 #### REGGIE Baugh ([id number]) [facility] ([facility]) [address] [place] [address] 45089 Urobilinogen (U) [Mass/Vol] mg/dL Normal <2.0 [facility] Comment on above: Performed By: #### 5 8077-9 #### REGGIE Baugh ([id number]) [facility] ([facility]) [address] [place] [address] 53800 Urinalysis microscopic panel Auto Ql (U)on 02-17-2023 Epithelial cells.squamous Auto (Urine sed) [#/Area] 1-9 (SPARSE) Normal Reference range not established. [facility] [facility] Comment on above: Performed By: #### 5 3315-8 #### REGGIE QUEZADA L ([id number]) [facility] ([facility]) [address] [place] [id number] RBC Auto (Urine sed) [#/Area] 1-2 Normal NONE, 1-2, 3-5 [facility] Comment on above: Performed By: #### 5 3315-8 #### REGGIE Baugh ([id number]) [facility] ([facility]) [address] [place] [address], [place] [address] WBC Auto (Urine sed) [#/Area] 1-5 Normal 1-5, NONE [facility] Comment on above: Performed By: #### 5 3315-8 #### REGGIE Baugh ([id number]) [facility] ([facility]) [address] [place] [address] XR foot LT min 3V*on 023 XR foot LT min 3V* [facility] [employer] Other XR foot LT min 3V* [facility] [employer] Other XR foot LT min 3V* [address] [place] [address] [employer] Other XR foot LT min 3V* [place] [address] [employer] Other XR foot LT min 3V* XRay Report [employer] Other XR foot LT min 3V* Signed [employer] Other XR foot LT min 3V* Patient: Ya Womack MR#: [id number] [employer] Other XR foot LT min 3V* 671 [employer] Other XR foot LT min 3V* : 1965 Acct:[id number] [employer] Other XR foot LT min 3V* Age/Sex: 57 / F ADM Date: 09/12/22 [employer] Other XR foot LT min 3V* Loc: XDUCLY Room: Type: [facility] [employer] Other XR foot LT min 3V* Attending Dr: Carol CORTEZ [employer] Other XR foot LT min 3V* Copies to: DANA Che [employer] Other XR foot LT min 3V* Ordering Provider: DANA Che [employer] Other XR foot LT min 3V* Date of Service: 09/12/22 [employer] Other XR foot LT min 3V* XR/XR foot LT min 3V*: Left foot pain [employer] Other XR foot LT min 3V* XR foot LT min 3V* 09/12/2022 12:11 PM [employer] Other XR foot LT min 3V* SIGNS AND SYMPTOMS: Left foot pain and swelling [employer] Other XR foot LT min 3V* PROTOCOL: Frontal, lateral, and oblique radiographs of the left foot [employer] Other XR foot LT min 3V* COMPARISON: None [employer] Other XR foot LT min 3V* FINDINGS: [employer] Other XR foot LT min 3V* There is a remote healed fifth metatarsal fracture. The joint spaces are preserved. There is no [employer] Other XR foot LT min 3V* evidence of acute displaced fracture. There is plantar surface calcaneal spurring. There is diffuse [employer] Other XR foot LT min 3V* soft tissue swelling. [employer] Other XR foot LT min 3V* XR/XR foot LT min 3V* [employer] Other XR foot LT min 3V* IMPRESSION: [employer] Other XR foot LT min 3V* No acute displaced fracture. [employer] Other XR foot LT min 3V* There is a remote healed fifth metatarsal fracture. [employer] Other XR foot LT min 3V* There is diffuse sof t tissue swelling which is nonspecific. [employer] Other XR foot LT min 3V* Impression dictated by: Alli Woods M.D.09/12/2022 12:29 PM [employer] Other XR foot LT min 3V* Dictation Location: [address] [employer] Other XR foot LT min 3V* Transcribed By: KEERTHI 09/12/22 1229 [employer] Other XR foot LT min 3V* Dictated By: Alli Woods II, MD 09/12/22 1228 [employer] Other XR foot LT min 3V* Signed By: [employer] Other XR foot LT min 3V* 09/12/[address] [place] [address] [email or web address] Other FREE T4on 12-12-2021 Free T4 [Mass/Vol] 0.86 ng/dL Normal 0.76-1.46 [facility] Comment on above: Performed By: #### F T4 #### [facility] [address] [place] [address] Dr. Jose Luis Diaz MG MAMM SCREEN 3D RAFY CADon 12-12-2021 MG MAMM SCREEN 3D RAFY CAD Patient: YA WOMACK Exam Date: 12/12/2021 : 1965 Gender:F Ordering : DR HARLAN ALMEIDA Admission #: [id number] Family : DR OLAF ANGUIANO Order #: [id number] CLICK HERE TO VIEW EXAM RADIOLOGY REPORT [...] lung cancer at age 49. LOCATION: [facility] BREAST COMPOSITION: Almost entirely fatty. FINDINGS: [...] Thompson MD on 12/12/2021 at 12:58 Normal [facility] TSHon 12-12-2021 TSH 1.592 uIU/mL Normal 0.358-3.740 [facility] Comment on above: Performed By: #### T SH #### [facility] [address] [place] [address] Dr. Jose Luis Diaz MICROALBUMIN/ CREATININE RAT IOon 11-25-2021 Albumin, Urine 170.0 ug/mL Normal Not Estab. [facility] Comment on above: Performed By: #### M ALBCRL #### [facility] [address] [place] [address] Dr. Jose Luis Diaz Albumin/ Creatinine Ratio 78 mg/g creat Critically high 0-29 [facility] Comment on above: Result Comment: Norm al: 0 - 29 Moderately increased: 30 - 300 Severely increased: >300 Performed By: #### M ALBCRL #### [facility] [address] [place] [address] Dr. Jose Luis Diaz Creatinine, Urine 216.7 mg/dL Normal Not Estab. [facility] Comment on above: Performed By: #### M ALBCRL #### [facility] [address] [place] [address] Dr. Jose Luis Diaz GLYCOHEMOGLOBIN A1Con 2021 ADA RECOMMENDATION SEE BELOW Normal [facility] Comment on above: Result Comment: ADA RECOMMENDED LIMIT 4.0 - 6.0 ADA THERAPEUTIC TARGET < 7.0 ACTION SUGGESTED > 7.0 Performed By: #### A 1C #### [facility] [address] [place] [address] Dr. Jose Luis Diaz Glucose [Mass/Vol] 126 mg/dL Normal [facility] Comment on above: Performed By: #### A 1C #### [facility] [address] [address] [address] Jose Luis Diaz HbA1c (Bld) [Mass fraction] 6.0 % Normal 4.5-6.2 [facility] Comment on above: Performed By: #### A 1C #### [facility] [address] [address] [address] Jose Luis Diaz LIPID PROFILEon 11-24-2021 CHOL-HDL RATIO NORM SEE BELOW Normal [facility] Comment on above: Result Comment: 3.3 - 4.4 LOW RISK 4.4 - 7.1 AVERAGE RISK 7.1 - 11.0 MODERATE RISK >11.0 HIGH RISK Performed By: #### L IPID, CMP #### [facility] [address] [address] [address] Jose Luis Diaz Cholesterol [Mass/Vol] 201 mg/dL Critically high <=200 [facility] Comment on above: Performed By: #### L IPID, CMP #### [facility] [address] [address] [address] Jose Luis Diaz Cholesterol in HDL [Mass/Vol] 60 mg/dL Normal 40-60 [facility] Comment on above: Performed By: #### L IPID, CMP #### [facility] [address] [address] [address] Jose Luis Diaz Cholesterol in LDL [Mass/Vol] 111.0 mg/dL Normal [facility] Comment on above: Performed By: #### L IPID, CMP #### [facility] [address] [address] [address] Jose Luis Diaz Cholesterol.total/C holesterol in HDL [Mass ratio] 3.4 {ratio} Normal [facility] Comment on above: Performed By: #### L IPID, CMP #### [facility] [address] [address] [address] Jose Luis Diaz HDL NORMAL > or = 60 mg/dl - LO W CARDIOVASCULAR RISK <40 mg/dl - HIGH CARDIOVASCULAR RISK Normal [facility] Comment on above: Performed By: #### L IPID, CMP #### [facility] [address] [address] [address] Jose Luis Diaz LDL CALC NORMAL SEE BELOW Normal [facility] Comment on above: Result Comment: <100 mg/dl OPTIMAL 100 - 129 mg/dl NEAR OR ABOVE OPTIMAL 130 - 159 mg/dl BORDERLINE HIGH 160 - 189 mg/dl HIGH >190 mg/dl VERY HIGH Performed By: #### L IPID, CMP #### [facility] [address] [place] [address] Dr. Jose Luis Diaz Triglyceride [Mass/Vol] 150 mg/dL Normal <=150 [facility] Comment on above: Performed By: #### L IPID, CMP #### [facility] [address] [address] [address] Jose Luis Diaz VLDL CALC 30.0 mg/dL Normal [facility] Comment on above: Performed By: #### L IPID, CMP #### [facility] [address] [place] [address] Dr. Jose Luis Diaz PROF 14(COMP METB)on 022 Albumin [Mass/Vol] 3.6 g/dL Normal 3.4-5.0 [facility] Comment on above: Performed By: #### L IPID, CMP #### [facility] [address] [place] [address] Dr. Jose Luis Diaz Albumin/Globulin [Mass ratio] 0.8 {ratio} Normal [facility] Comment on above: Performed By: #### L IPID, CMP #### [facility] [address] [place] [address] Dr. Jose Luis Diaz ALP [Catalytic activity/Vol] 79 U/L Normal 46-116 [facility] Comment on above: Performed By: #### L IPID, CMP #### [facility] [address] [place] [address] Dr. Jose Luis Diaz ALT [Catalytic activity/Vol] 23 U/L Normal 14-59 [facility] Comment on above: Performed By: #### L IPID, CMP #### [facility] [address] [place] [address] Dr. Jose Luis Diaz Anion gap [Moles/Vol] 10.9 mmol/L Normal [facility] Comment on above: Performed By: #### L IPID, CMP #### [facility] [address] [place] [address] Dr. Jose Luis Diaz AST [Catalytic activity/Vol] 16 U/L Normal 15-37 [facility] Comment on above: Performed By: #### L IPID, CMP #### [facility] [address] [place] [address] Dr. Jose Luis Diaz Bilirubin [Mass/Vol] 0.4 mg/dL Normal 0.2-1.0 [facility] Comment on above: Performed By: #### L IPID, CMP #### [facility] [address] [place] [address] Dr. Jose Luis Diaz Calcium [Mass/Vol] 9.4 mg/dL Normal 8.5-10.1 [facility] Comment on above: Performed By: #### L IPID, CMP #### [facility] [address] [place] [address] Dr. Jose Luis Diaz Chloride [Moles/Vol] 101 mmol/L Normal 98-107 [facility] Comment on above: Performed By: #### L IPID, CMP #### [facility] [address] [place] [address] Dr. Jose Luis Diaz CO2 [Moles/Vol] 29.2 mmol/L Normal 21.0-32.0 [facility] Comment on above: Performed By: #### L IPID, CMP #### [facility] [address] [place] [address] Dr. Jose Luis Diaz Creatinine [Mass/Vol] 0.80 mg/dL Normal 0.55-1.02 [facility] Comment on above: Performed By: #### L IPID, CMP #### [facility] [address] [place] [address] Dr. Jose Luis Diaz EGFR-AF CYMRO >60 Normal >=60 [facility] Comment on above: Performed By: #### L IPID, CMP #### [facility] [address] [place] [address] Dr. Jose Luis Diaz EGFR-NON AF CYMRO >60 Normal >=60 [facility] Comment on above: Performed By: #### L IPID, CMP #### [facility] [address] [place] [address] Dr. Jose Luis Diaz Globulin (S) [Mass/Vol] 4.3 g/dL Normal [facility] Comment on above: Performed By: #### L IPID, CMP #### [facility] [address] [place] [address] Dr. Jose Luis Diaz Glucose [Mass/Vol] 129 mg/dL Critically high 74-106 [facility] Comment on above: Performed By: #### L IPID, CMP #### [facility] [address] [place] [address] Dr. Jose Luis Diaz Potassium [Moles/Vol] 4.1 mmol/L Normal 3.5-5.1 [facility] Comment on above: Performed By: #### L IPID, CMP #### [facility] [address] [place] [address] Dr. Jose Luis Diaz Protein [Mass/Vol] 7.9 g/dL Normal 6.4-8.2 [facility] Comment on above: Performed By: #### L IPID, CMP #### [facility] [address] [place] [address] Dr. Jose Luis Diaz Sodium [Moles/Vol] 137 mmol/L Normal 136-145 [facility] Comment on above: Performed By: #### L IPID, CMP #### [facility] [address] [place] [address] Dr. Jose Luis Diaz Urea nitrogen [Mass/Vol] 12.0 mg/dL Normal 7.0-18.0 [facility] Comment on above: Performed By: #### L IPID, CMP #### [facility] [address] [place] [address] Dr. Jose Luis Diaz Urea nitrogen/Creatinine [Mass ratio] 15.0 mg/mg Normal [facility] Comment on above: Performed By: #### L IPID, CMP #### [facility] [address] [place] [address] Dr. Jose Luis Diaz XR ankle RT min 3V*on 2021 XR ankle RT min 3V* [facility] [employer] Other XR ankle RT min 3V* [facility] [employer] Other XR ankle RT min 3V* [address] [facility] [email or web address] Other XR ankle RT min 3V* [place], [place] [address] [place] [address] [employer] Other XR ankle RT min 3V* XRay Report [facility] [employer] Other XR ankle RT min 3V* Signed [employer] Other XR ankle RT min 3V* Patient: Ya Womack MR#: [id number] [facility] [employer] Other XR ankle RT min 3V* 671 [employer] Other XR ankle RT min 3V* : 1965 Acct:[id number] [employer] Other XR ankle RT min 3V* Age/Sex: 56 / F ADM Date: 07/18/21 [employer] Other XR ankle RT min 3V* [facility]: Type: [facility] [employer] Other XR ankle RT min 3V* Attending Dr: Carol CORTEZ [employer] Other XR ankle RT min 3V* Ordering Provider: DANA Che [employer] Other XR ankle RT min 3V* Date of Service: 07/18/21 [employer] Other XR ankle RT min 3V* XR/XR ankle RT min 3V*: Acute right ankle pain [employer] Other XR ankle RT min 3V* Copies to: DAILY CheC [employer] Other XR ankle RT min 3V* RIGHT ANKLE - 3 views [employer] Other XR ankle RT min 3V* CLINICAL HISTORY: Patient with right ankle 3 days ago walking down steps. Lateral ankle pain. [employer] Other XR ankle RT min 3V* COMPARISON: None [employer] Other XR ankle RT min 3V* FINDINGS: [employer] Other XR ankle RT min 3V* Soft tissue swelling . Chip fracture lateral malleolus. Ankle mortise appears intact. Plantar [employer] Other XR ankle RT min 3V* spurring. [employer] Other XR ankle RT min 3V* XR/XR ankle RT min 3V* [employer] Other XR ankle RT min 3V* IMPRESSION: [facility] [employer] Other XR ankle RT min 3V* CHIP FRACTURE LATERA L MALLEOLUS WITH SOFT TISSUE SWELLING. [employer] Other XR ankle RT min 3V* Impression dictated by: Aidan Grullon Jr., DVinhOVinh07/18/2021 12:03 PM [employer] Other XR ankle RT min 3V* Dictation Location: RADIO-PC-13 [employer] Other XR ankle RT min 3V* Transcribed By: PWS 07/18/21 1203 [employer] Other XR ankle RT min 3V* Dictated By: Aidan Grullon Jr, DO 07/18/21 1203 [employer] Other XR ankle RT min 3V* Signed By: [employer] Other XR ankle RT min 3V* 07/18/21 1203 No [employer] Other COMPREHENSIVE METABOLIC PANE [facility] 05-01-2021 Albumin [Mass/Vol] 4.4 g/dL Normal 3.6-5.1 [facility] Comment on above: Performed By: #### 1 0231, 7600 #### [facility] of [address], [address] [place] [address] Electronics Engineering Technologist: Pedrito Fontaine MD Albumin/Globulin [Mass ratio] 1.6 {ratio} Normal 1.0-2.5 [facility] Comment on above: Performed By: #### 1 023, 7600 #### [facility] of [place] [address] Electronics Engineering Technologist: Pedrito Fontaine MD ALP [Catalytic activity/Vol] 63 U/L Normal 37-153 [facility] Comment on above: Performed By: #### 1 023, 7600 #### [facility] of [place] [address] Electronics Engineering Technologist: Pedriot Fontaine MD ALT [Catalytic activity/Vol] 17 U/L Normal 6-29 [facility] Comment on above: Performed By: #### 1 0231, 7600 #### [facility] of [place] [address] Electronics Engineering Technologist: Pedrito Fontaine MD AST [Catalytic activity/Vol] 18 U/L Normal 10-35 [facility] Comment on above: Performed By: #### 1 0231, 7600 #### [facility] of [place] [address] Electronics Engineering Technologist: Pedrito Fontaine MD Bilirubin [Mass/Vol] 0.4 mg/dL Normal 0.2-1.2 [facility] Comment on above: Performed By: #### 1 0231, 7600 #### [facility] of [place] [address] Electronics Engineering Technologist: Pedrito Fontaine MD BUN/CREATININE RATIO NOT APPLICABLE Normal 6-22 [facility] Comment on above: Performed By: #### 1 0231, 7600 #### [facility] of [address], [address] [place] [address] Electronics Engineering Technologist: Pedrito Fontaine MD Calcium [Mass/Vol] 9.7 mg/dL Normal 8.6-10.4 [facility] Comment on above: Performed By: #### 1 0231, 7600 #### [facility] [place] [address] Electronics Engineering Technologist: Pedrito Fontaine MD Chloride [Moles/Vol] 104 mmol/L Normal 98-110 [facility] Comment on above: Performed By: #### 1 0231, 7600 #### [facility] [place] [address] Electronics Engineering Technologist: Pedrito Fontaine MD CO2 [Moles/Vol] 27 mmol/L Normal 20-32 [facility] Comment on above: Performed By: #### 1 023, 7600 #### [facility] [place] [address] Electronics Engineering Technologist: Pedrito Fontaine MD Creatinine [Mass/Vol] 0.69 mg/dL Normal 0.50-1.05 [facility] Comment on above: Result Comment: For patients >49 years of age, the reference limit for Creatinine is approximately 13% higher for people identified as -Fijian. Performed By: #### 1 023, 7600 #### [facility] [place] [address] Electronics Engineering Technologist: Pedrito Fontaine MD eGFR NON-AFR. CYMRO 97 mL/min/1.73m2 Normal > OR = 60 [facility] Comment on above: Performed By: #### 1 0231, 7600 #### [facility] [place] [address] Electronics Engineering Technologist: Pedrito Fontaine MD GFR/1.73 sq M.predicted among blacks MDRD (S/P/Bld) [Vol rate/Area] 112 mL/min/{1.73_m2} Normal > OR = 60 [facility] Comment on above: Performed By: #### 1 0231, 7600 #### [facility] [place] [address] Electronics Engineering Technologist: Pedrito Fontaine MD Globulin (S) [Mass/Vol] 2.8 g/dL Normal 1.9-3.7 [facility] Comment on above: Performed By: #### 1 023, 7600 #### [facility] [place] [address] Electronics Engineering Technologist: Pedrito Fontaine MD Glucose [Mass/Vol] 104 mg/dL High 65-99 [facility] Comment on above: Result Comment: Fasting reference interval For someone without known diabetes, a glucose value between 100 and 125 mg/dL is consistent with prediabetes and should be confirmed with a follow-up test. Performed By: #### 1 023, 7600 #### [facility] [place] [address] Electronics Engineering Technologist: Pedrito Fontaine MD Potassium [Moles/Vol] 4.8 mmol/L Normal 3.5-5.3 [facility] Comment on above: Performed By: #### 1 023, 7600 #### [facility] [place] [address] Electronics Engineering Technologist: Pedrito Fontaine MD Protein [Mass/Vol] 7.2 g/dL Normal 6.1-8.1 [facility] Comment on above: Performed By: #### 1 023, 7600 #### [facility] [place] [address] Electronics Engineering Technologist: Pedrito Fontaine MD Sodium [Moles/Vol] 143 mmol/L Normal 135-146 [facility] Comment on above: Performed By: #### 1 023, 7600 #### [facility] [place] [address] Electronics Engineering Technologist: Pedrito Fontaine MD Urea nitrogen [Mass/Vol] 16 mg/dL Normal 7-25 [facility] Comment on above: Performed By: #### 1 0231, 7600 #### [facility] [address], [address] [place] [address] Electronics Engineering Technologist: Pedrito Fontaine MD LIPID PANEL, [facility] 04-09 Cholesterol [Mass/Vol] 195 mg/dL Normal <200 [facility] Comment on above: Order Comment: FASTI NG:YES FASTING: YES Performed By: #### 1 0231, 7600 #### [facility] [address], [address] [place] [address] Electronics Engineering Technologist: Pedrito Fontaine MD Cholesterol in HDL [Mass/Vol] 63 mg/dL Normal > OR = 50 [facility] Comment on above: Order Comment: FASTI NG:YES FASTING: YES Performed By: #### 1 0231, 7600 #### [facility] [address], [address] [place] [address] Electronics Engineering Technologist: Pedrito Fontaine MD Cholesterol in LDL [Mass/Vol] [...] LDL-C. Keven CANNON et al. JOSEPH. 2013;310(19): 2710-4279 (http://education.Oppa.Oesia/faq/UOI565) Performed By: #### 1 0231, 7600 #### [facility] [address], [address] [place] [address] Electronics Engineering Technologist: Pedrito Fontaine MD Cholesterol.total/C holesterol in HDL [Mass ratio] 3.1 {ratio} Normal <5.0 [facility] Comment on above: Order Comment: FASTI NG:YES FASTING: YES Performed By: #### 1 0231, 7600 #### [facility] [address], [address] [place] [address] Electronics Engineering Technologist: Pedrito Fontaine MD NON HDL CHOLESTEROL 132 mg/dL (calc) High <130 [facility] Comment on above: Order Comment: FASTI NG:YES FASTING: YES Result Comment: For patients with diabetes plus 1 major ASCVD risk factor, treating to a non-HDL-C goal of <100 mg/dL (LDL-C of <70 mg/dL) is considered a therapeutic option. Performed By: #### 1 0231, 7600 #### [facility] [place] [address] Electronics Engineering Technologist: Pedrito Fontaine MD Triglyceride [Mass/Vol] 192 mg/dL High <150 [facility] Comment on above: Order Comment: FASTI NG:YES FASTING: YES Performed By: #### 1 0231, 7600 #### [facility] [place] [address] Electronics Engineering Technologist: Pedrito Fontaine MD [facility] METABOLIC PANE [facility] 10-09-2020 Albumin [Mass/Vol] 4.2 g/dL Normal 3.6-5.1 [facility] Comment on above: Performed By: #### 1 023, 7600 #### [facility] [place] [address] Electronics Engineering Technologist: Pedrito Fontaine MD Albumin/Globulin [Mass ratio] 1.6 {ratio} Normal 1.0-2.5 [facility] Comment on above: Performed By: #### 1 0231, 7600 #### [facility] [place] [address] Electronics Engineering Technologist: Pedrito Fontaine MD ALP [Catalytic activity/Vol] 56 U/L Normal 37-153 [facility] Comment on above: Performed By: #### 1 0231, 7600 #### [facility] [place] [address] Electronics Engineering Technologist: Pedrito Fontaine MD ALT [Catalytic activity/Vol] 7 U/L Normal 6-29 [facility] Comment on above: Performed By: #### 1 0231, 7600 #### [facility] [address] [place] [address] Electronics Engineering Technologist: Pedrito Fontaine MD AST [Catalytic activity/Vol] 10 U/L Normal 10-35 [facility] Comment on above: Performed By: #### 1 0231, 7600 #### [facility] [place] [address] Electronics Engineering Technologist: Pedrito Fontaine MD Bilirubin [Mass/Vol] 0.3 mg/dL Normal 0.2-1.2 [facility] Diagnostics Comment on above: Performed By: #### 1 0231, 7600 #### [facility] [place] [address] Electronics Engineering Technologist: Pedrito Fontaine MD BUN/CREATININE RATIO NOT APPLICABLE Normal 6-22 [facility] Comment on above: Performed By: #### 1 023, 7600 #### [facility] [place] [address] Electronics Engineering Technologist: Pedrito Fontaine MD Calcium [Mass/Vol] 9.3 mg/dL Normal 8.6-10.4 [facility] Comment on above: Performed By: #### 1 0231, 7600 #### [facility] [place] [address] Electronics Engineering Technologist: Pedrito Fontaine MD Chloride [Moles/Vol] 101 mmol/L Normal 98-110 [facility] Comment on above: Performed By: #### 1 0231, 7600 #### [facility] [place] [address] Electronics Engineering Technologist: Pedrito Fontaine MD CO2 [Moles/Vol] 27 mmol/L Normal 20-32 [facility] Comment on above: Performed By: #### 1 0231, 7600 #### [facility] [place] [address] Electronics Engineering Technologist: Pedrito Fontaine MD Creatinine [Mass/Vol] 0.67 mg/dL Normal 0.50-1.05 [facility] Comment on above: Result Comment: For patients >49 years of age, the reference limit for Creatinine is approximately 13% higher for people identified as -Fijian. Performed By: #### 1 230, 7600 #### [facility] [place] [address] Electronics Engineering Technologist: Pedrito Fontaine MD eGFR NON-AFR. CYMRO 98 mL/min/1.73m2 Normal > OR = 60 [facility] Comment on above: Performed By: #### 1 230, 7600 #### [facility] [place] [address] Electronics Engineering Technologist: Pedrito Fontaine MD GFR/1.73 sq M.predicted among blacks MDRD (S/P/Bld) [Vol rate/Area] 114 mL/min/{1.73_m2} Normal > OR = 60 [facility] Comment on above: Performed By: #### 1 230, 7600 #### [facility] [place] [address] Electronics Engineering Technologist: Pedrito Fontaine MD Globulin (S) [Mass/Vol] 2.6 g/dL Normal 1.9-3.7 [facility] Comment on above: Performed By: #### 1 023, 7600 #### [facility] [place] [address] Electronics Engineering Technologist: Pedrito Fontaine MD Glucose [Mass/Vol] 88 mg/dL Normal 65-99 [facility] Comment on above: Result Comment: Fasting reference interval Performed By: #### 1 023, 7600 #### [facility] [place] [address] Electronics Engineering Technologist: Pedrito Fontaine MD Potassium [Moles/Vol] 4.7 mmol/L Normal 3.5-5.3 [facility] Comment on above: Performed By: #### 1 023, 7600 #### [facility] [place] [address] Electronics Engineering Technologist: Pedrito Fontaine MD Protein [Mass/Vol] 6.8 g/dL Normal 6.1-8.1 [facility] Comment on above: Performed By: #### 1 0231, 7600 #### [facility] [address], [address] [place] [address] Electronics Engineering Technologist: Pedrito Fontaine MD Sodium [Moles/Vol] 139 mmol/L Normal 135-146 [facility] Comment on above: Performed By: #### 1 0231, 7600 #### [facility] [address], [address] [place] [address] Electronics Engineering Technologist: Pedrito Fontaine MD Urea nitrogen [Mass/Vol] 22 mg/dL Normal 7-25 [facility] Comment on above: Performed By: #### 1 0231, 7600 #### [facility] [place] [address] Electronics Engineering Technologist: Pedrito Fontaine MD LIPID PANEL, [facility] 08-0 Cholesterol [Mass/Vol] 210 mg/dL High <200 [facility] Comment on above: Performed By: #### 1 0231, 7600 #### [facility] [place] [address] Electronics Engineering Technologist: Pedrito Fontaine MD Cholesterol in HDL [Mass/Vol] 59 mg/dL Normal > OR = 50 [facility] Comment on above: Performed By: #### 1 0231, 7600 #### [facility] [place] [address] Electronics Engineering Technologist: Pedrito Fontaine MD Cholesterol in LDL [Mass/Vol] [...] LDL-C. Keven CANNON et al. JOSEPH. 2013;310(19): 5080-4908 (http://education.Oppa.Oesia/faq/AAK866) Performed By: #### 1 0231, 7600 #### [facility] [address], [address] [place] [address] Electronics Engineering Technologist: Pedrito Fontaine MD Cholesterol.total/C holesterol in HDL [Mass ratio] 3.6 {ratio} Normal <5.0 [facility] Comment on above: Performed By: #### 1 0231, 7600 #### [facility] [address], [address] [place] [address] Electronics Engineering Technologist: Pedrito Fontaine MD NON HDL CHOLESTEROL 151 mg/dL (calc) High <130 [facility] Comment on above: Result Comment: For patients with diabetes plus 1 major ASCVD risk factor, treating to a non-HDL-C goal of <100 mg/dL (LDL-C of <70 mg/dL) is considered a therapeutic option. Performed By: #### 1 0231, 7600 #### [facility] [address], [address] [place] [address] Electronics Engineering Technologist: Pedrito Fontaine MD Triglyceride [Mass/Vol] 179 mg/dL High <150 [facility] Comment on above: Performed By: #### 1 023, 7600 #### [facility] [place] [address] Electronics Engineering Technologist: Pedrito Fontaine MD KNEE LEFT 3 Son 03-10-2019 KNEE LEFT 3 S [facility] Department of Radiology [address] [place] [id number] Patient Name: YA WOMACK : 1965 Sex: F Age: Race: White Pt. Location: Patient Status: O Ordered Date: 03/10/2019 3:35:00 PM Completed Date: 03/10/2019 03:37 PM Requesting Provider: RISA HAYWOOD Attending Provider: RISA HAYWOOD Report Copy To: Signs & Symptoms: M25.562 Pain in left knee I10 History: [place] Comments: , Views (X-RAY, KNEE): AP, Lateral, [place] , Weight Bearing?: Y , Views (X-RAY, KNEE): AP, Lateral, [place] , Weight Bearing?: Y , , , Ordering Provider - RISA HAYWOOD PA-C , Exam: KNEE LEFT 3 VWS KNEE LEFT 3 VWS 03/10/2019 3:37 PM EST SIGNS AND SYMPTOMS: M25.562 Pain in left knee I10 TECHNOLOGIST COMMENTS: pt states having bilateral knee pain post fall 10 days ago QUESTION FOR THE RADIOLOGIST: , Views (X-RAY, KNEE): AP, Lateral, [place] , Weight Bearing?: Y , Views (X-RAY, KNEE): AP, Lateral, [place] , Weight Bearing?: Y , , , [...] 7017. Electronically signed by:Gini Martin. Transcribed by: [email or web address], User Resident: Electronically Signed by: GINI MARTIN @ 03/10/2019 03:48 PM Normal [facility] Comment on above: Order Comment: , Gi ws (X-RAY, KNEE): AP, Lateral, [place] , Weight Bearing?: Y , Views (X-RAY, KNEE): AP, Lateral, [place] , Weight Bearing?: Y , , , Ordering Provider - RISA HAYWOOD PA-C , KNEE RIGHT 3 VWSon 0 KNEE RIGHT 3 S [facility] Department of Radiology [address] [place] [phone] Patient Name: YA WOMACK : 1965 Sex: F Age: Race: White Pt. Location: 84 Patient Status: O Ordered Date: 03/10/2019 3:35:00 PM Completed Date: 03/10/2019 03:37 PM Requesting Provider: RISA HAYWOOD Attending Provider: RISA HAYWOOD Report Copy To: Signs & Symptoms: M25.561 Pain in right knee I10 History: [place] Comments: , Views (X-RAY, KNEE): AP, Lateral, [place] , Weight Bearing?: Y , Views (X-RAY, KNEE): AP, Lateral, [place] , Weight Bearing?: Y , , , Ordering Provider - RISA HAYWOOD PA-C , Exam: KNEE RIGHT 3 VWS KNEE RIGHT 3 VWS 03/10/2019 3:37 PM EST SIGNS AND SYMPTOMS: M25.561 Pain in right knee I10 TECHNOLOGIST COMMENTS: pt states having bilateral knee pain post fall 10 days ago QUESTION FOR THE RADIOLOGIST: , Views (X-RAY, KNEE): AP, Lateral, [place] , Weight Bearing?: Y , Views (X-RAY, KNEE): AP, Lateral, [place] , Weight Bearing?: Y , , , [...] 05/12/2017 Electronically signed by:Gini Martin. Transcribed by: [email or web address], User Resident: Electronically Signed by: GINI MARTIN @ 03/10/2019 03:49 PM Normal [facility] Comment on above: Order Comment: , Vie ws (X-RAY, KNEE): AP, Lateral, [place] , Weight Bearing?: Y , Views (X-RAY, KNEE): AP, Lateral, [place] , Weight Bearing?: Y , , , Ordering Provider - RISA HAYWOOD PA-C , Vital Signs Date Time Vital Sign Value Performing Clinician Facility 06-12-2024 09:35-0400 Body height 167.64 cm [employer]len[employer] DO Work Phone: [facility] 06-12-2024 09:35-0400 Body mass index (BMI) [Ratio] 36.8 kg/m2 Harlan Furlong DO Work Phone: [facility] 06-12-2024 09:35-0400 Body temperature 98 [degF] Harlan OnKurelong DO Work Phone: [facility] 06-12-2024 09:35-0400 Body weight 103.41 kg Harlan [employer] DO Work Phone: [facility] 06-12-2024 09:35-0400 Diastolic blood pressure 75 mm[Hg] Harlan Furlong DO Work Phone: [facility] 06-12-2024 09:35-0400 Heart rate 82 /min Harlan Furlong DO Work Phone: [facility] 06-12-2024 09:35-0400 Respiratory rate 18 /min Harlan Furlong DO Work Phone: [facility] 06-12-2024 09:35-0400 SaO2% (BldA) [Mass fraction] 98 % Harlan Furlong DO Work Phone: [facility] 06-12-2024 09:35-0400 Systolic blood pressure 117 mm[Hg] Harlan Furlong DO Work Phone: [facility] 12-21-2023 10:08-0400 Body height 167.6 cm Mac Dawna DO Work Phone: [facility] 12-21-2023 10:08-0400 Body mass index (BMI) [Ratio] 32.83 kg/m2 Mac Dawna DO Work Phone: [facility] 12-21-2023 10:08-0400 Body weight 92.26 kg Mac Dawna DO Work Phone: [facility] 12-21-2023 10:08-0400 Diastolic blood pressure 86 mm[Hg] Mac Dawna DO Work Phone: [facility] 12-21-2023 10:08-0400 Heart rate 82 /min Mac Dawna DO Work Phone: [facility] 12-21-2023 10:08-0400 SaO2% (BldA) [Mass fraction] 97 % Mac Dawna DO Work Phone: [facility] 12-21-2023 10:08-0400 Systolic blood pressure 124 mm[Hg] Mac Dawna DO Work Phone: [facility] 04-23-2023 10:51-0500 Body height 167.[address] [facility] 04-23-2023 10:51-0500 Body mass index (BMI) [Ratio] 49.2 kg/m2 [facility] 04-23-2023 10:51-0500 Body temperature 98.5 [degF] [facility] 04-23-2023 10:51-0500 Body weight 138.[address] [facility] 04-23-2023 10:51-0500 Diastolic blood pressure 77 mm[Hg] [facility] 04-23-2023 10:51-0500 Heart rate 86 /min [facility] 04-23-2023 10:51-0500 Respiratory rate 18 /min [facility] 04-23-2023 10:51-0500 SaO2% (BldA) [Mass fraction] 98 % [facility] 04-23-2023 10:51-0500 Systolic blood pressure 128 mm[Hg] [facility] 03-16-2023 12:58-0500 Body height 167.6 cm Fercho Ham MD Work Phone: [facility] 03-16-2023 12:58-0500 Body mass index (BMI) [Ratio] 51.88 kg/m2 Fercho Ham MD Work Phone: [facility] 03-16-2023 12:58-0500 Body temperature 96.21 [degF] Fercho Ham MD Work Phone: [facility] 03-16-2023 12:58-0500 Body weight 145.79 kg Fercho Ham MD Work Phone: [facility] 02-25-2023 15:38-0500 Body temperature 97.7 [degF] Clayton Hawley MD Work Phone: [facility] 02-25-2023 15:38-0500 Diastolic blood pressure 77 mm[Hg] Clayton Hawley MD Work Phone: [facility] 02-25-2023 15:38-0500 Heart rate 81 /min Clayton Hawley MD Work Phone: [facility] 02-25-2023 15:38-0500 Respiratory rate 16 /min Clayton Hawley MD Work Phone: [facility] 02-25-2023 15:38-0500 SaO2% (BldA) [Mass fraction] 92 % Clayton Hawley MD Work Phone: [facility] 02-25-2023 15:38-0500 Systolic blood pressure 143 mm[Hg] Clayton Hawley MD Work Phone: [facility] 02-24-2023 00:00-0500 Body mass index (BMI) [Ratio] 54.05 kg/m2 Clayton Hawley MD Work Phone: [facility] 02-24-2023 00:00-0500 Body weight 151.9 kg Clayton Hawley MD Work Phone: [facility] 02-22-2023 06:35-0500 Body height 167.6 cm Clayton Hawley MD Work Phone: [facility] 10-08-2022 10:10-0400 Body height 172.72 cm Harmony Khan Other [employer] Other 10-08-2022 10:10-0400 Body mass index (BMI) [Ratio] 51.9 kg/m2 Harmony Khan Other [employer] Other 10-08-2022 10:10-0400 Body temperature 97.8 [degF] Harmony Khan Other [employer] Other 10-08-2022 10:10-0400 Body weight 154.86 kg Harmony Khan Other [employer] Other 10-08-2022 10:10-0400 Diastolic blood pressure 85 mm[Hg] Harmony Bill Other [employer] Other 10-08-2022 10:10-0400 Respiratory rate 18 /min Harmony Bill Other [employer] Other 10-08-2022 10:10-0400 SaO2% (BldA) [Mass fraction] 95 % Harmony Khan Other [employer] Other 10-08-2022 10:10-0400 Systolic blood pressure 137 mm[Hg] Harmony Khan Other [employer] Other 09-12-2022 11:15-0400 Body height 172.72 cm Carol Mckinney Other [employer] Other 09-12-2022 11:15-0400 Body mass index (BMI) [Ratio] 52.15 kg/m2 Carol Bellemond Other [employer] Other 09-12-2022 11:15-0400 Body temperature 98.1 [degF] Carol Bellemond Other [employer] Other 09-12-2022 11:15-0400 Body weight 155.58 kg Carol Bellemond Other [employer] Other 09-12-2022 11:15-0400 Diastolic blood pressure 73 mm[Hg] Carol Faye Other [employer] Other 09-12-2022 11:15-0400 Respiratory rate 18 /min Carol Faye Other [employer] Other 09-12-2022 11:15-0400 SaO2% (BldA) [Mass fraction] 92 % Carol Mckinney Other [employer] Other 09-12-2022 11:15-0400 Systolic blood pressure 143 mm[Hg] Carol Mckinney Other [employer] Other 07-18-2021 12:20-0400 Body height 172.72 cm Carol Mckinney Other [employer] Other 07-18-2021 12:20-0400 Body mass index (BMI) [Ratio] 51.69 kg/m2 Carol Bellemond Other [employer] Other 07-18-2021 12:20-0400 Body temperature 96.9 [degF] Carol Mckinney Other [employer] Other 07-18-2021 12:20-0400 Body weight 154.22 kg Carol Mckinney Other [employer] Other 07-18-2021 12:20-0400 Respiratory rate 16 /min Carol Mckinney Other [employer] Other 07-18-2021 12:20-0400 SaO2% (BldA) [Mass fraction] 98 % Carol Mckinney Other [employer] Other Encounters Encounter Date Encounter Type Care Provider Facility Start: 08-17-2024 ambulatory Deepak Schaffer acility:[facility] Start: 07-06-2024 End: 07-06-2024 Bamboo flowsheet Meño Gomez CREATIVE SERVICES INTERN Work Phone: [facility] Start: 07-06-2024 End: 07-06-2024 Bamboo flowsheet Meño Gomez NP Work Phone: [facility] Start: 07-06-2024 End: 07-06-2024 Office outpatient visit 25 minutes Meño Gomez NP Work Phone: [facility] Comment on above: Primary osteoarthrit is of left knee (Primary Dx); Chronic pain of left knee; Chronic pain of right knee; Primary osteoarthritis of right knee Start: 07-06-2024 End: 07-06-2024 ambulatory MEÑO GOMEZ Not Available Start: 06-12-2024 End: 06-12-2024 ambulatory Harlan Adamsng DO Work Phone: [facility] Work Phone: Start: 06-12-2024 End: 06-12-2024 Patient encounter procedure Harlan Adamsines DO Work Phone: Replaced By [facility] Work Phone: Start: 06-01-2024 Registered Recurring Harlan bonner DO Work Phone: [facility] Start: 03-16-2024 End: 03-16-2024 Bamboo flowsheet Meño Gomez NP Work Phone: [facility] Start: 03-16-2024 End: 03-16-2024 Bamboo flowsheet Meño Gomez NP Work Phone: [facility] Start: 03-16-2024 End: 03-16-2024 Office outpatient visit 25 minutes Meño Gomez NP Work Phone: [facility] Comment on above: Primary osteoarthrit is of right knee (Primary Dx); Primary osteoarthritis of left knee; Chronic pain of right knee; Chronic pain of left knee Start: 03-16-2024 End: 03-16-2024 ambulatory MEÑO GOMEZ Not Available Start: 01-20-2024 End: 01-20-2024 ambulatory [facility] Start: 01-20-2024 End: 01-20-2024 ambulatory LEONCIO BINGHAM [facility] Start: 12-21-2023 End: 12-21-2023 Bamboo flowsheet Mac Toney DO Work Phone: [facility] Start: 12-21-2023 End: 12-21-2023 Bamboo flowsheet Mac Toney DO Work Phone: [facility] Start: 12-21-2023 End: 12-21-2023 Clinisync Result Encounter Mac Toney DO Work Phone: [facility] Department Unsolicited Start: 12-21-2023 End: 12-21-2023 Office outpatient visit 25 minutes Meño Gomez CREATIVE SERVICES INTERN Work Phone: [facility] Comment on above: [...] ROUTE Start: 10-04-2023 End: 10-04-2023 ambulatory TAWANNA POWERSEVEN Not Available Start: 09-24-2023 End: 09-24-2023 ambulatory HARLAN ALMEIDA [facility] Start: 07-22-2023 End: 07-22-2023 ambulatory [facility] Start: 07-08-2023 End: [facility] Start: 07-06-2023 End: 07-06-2023 ambulatory [facility] Start: 05-18-2023 End: 05-18-2023 ambulatory [facility] Start: 04-23-2023 End: 04-23-2023 ambulatory [facility] Work Phone: Start: 04-23-2023 End: 04-23-2023 Patient encounter procedure Replaced By [facility] Work Phone: Start: 03-24-2023 End: 03-24-2023 ambulatory HARLAN G [facility] Start: 03-16-2023 End: 03-16-2023 ambulatory FERCHO Brown [facility] Ambulatory Start: 03-16-2023 End: 03-16-2023 Postop follow up visit related to original px Fercho Ham MD Work Phone: [facility] Comment on above: 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) Start: 02-22-2023 End: 02-25-2023 Evaluation and management of inpatient Clayton Hawley MD Work Phone: [facility] [place] [facility] Comment on above: CSF leak (Primary Dx ); Post-op pain Start: 02-17-2023 End: 02-17-2023 ambulatory [facility] Start: 02-17-2023 End: 02-17-2023 Encounter for other preprocedural examination [facility] Start: 02-02-2023 End: 02-02-2023 ambulatory [facility] Start: 01-18-2023 End: 01-18-2023 Office outpatient new 30 minutes Clayton Hawley MD Work Phone: [facility] Jan Comment on above: CSF leak (Primary Dx ) Start: 01-18-2023 End: 01-19-2023 ambulatory CLAYTON HAWLEY [facility] Start: 01-07-2023 End: 01-07-2023 ambulatory FERCHO HAM [facility] Start: 12-24-2022 End: 12-24-2022 ambulatory FERCHO Brown JITENDRA [facility] Start: 10-08-2022 End: 10-08-2022 ambulatory Harmony Khan Other [employer] Other Start: 10-08-2022 Office outpatient vi sit 25 minutes Harmony Khan [facility] Start: 09-12-2022 Office outpatient vi sit 15 minutes Carol Mckinney [facility] Start: 09-12-2022 End: 09-12-2022 ambulatory DO Harlan Jennifermaxineng Work Phone: [employer] Other Start: 09-12-2022 End: 09-12-2022 Patient encounter procedure DO Harlan Rodriguezlong Work Phone: [facility] Work Phone: Start: 07-28-2022 Registered Recurring DO Harlan Furlong Work Phone: [facility] Start: 12-12-2021 End: 12-13-[address] HARLAN ALMEIDA Facility:[facility] Start: 11-24-2021 End: 11-25-[address] OLAF ANGUIANO Facility:[facility] Start: 07-18-2021 End: 07-18-2021 ambulatory Carol Mckinney Other [employer] Other Start: 07-18-2021 Office outpatient vi sit 15 minutes Carol Mckinney [facility] Start: 01-01-[address] MAC Clevelandi ty:[facility] Procedures Date Procedure Procedure Detail Performing Clinician Start: 07-06-2024 Arthrocentesis aspir &/inj major jt/bursa w/o us Meño T Luis Miguel CREATIVE SERVICES INTERN Work Phone: Start: 07-06-2024 Arthrocentesis aspir &/inj major jt/bursa w/o us Meño T Luis Miguel CREATIVE SERVICES INTERN Work Phone: Start: 07-06-2024 Radiologic examinati on knee 1/2 views Meño Gomez CREATIVE SERVICES INTERN Work Phone: Start: 07-06-2024 Radiologic examinati on knee 1/2 views Meño Gomez CREATIVE SERVICES INTERN Work Phone: Start: 03-16-2024 Arthrocentesis aspir &/inj major jt/bursa w/o us Meño Gomez CREATIVE SERVICES INTERN Work Phone: Start: 03-16-2024 Arthrocentesis aspir &/inj major jt/bursa w/o us Meño Gomez CREATIVE SERVICES INTERN Work Phone: Start: 12-21-2023 Arthrocentesis aspir &/inj major jt/bursa w/o us Meño Gomez CREATIVE SERVICES INTERN Work Phone: Start: 12-21-2023 [facility] Mac [...] TO NEW UNIT CLAYTON HAWLEY Start: 02-23-2023 TRANSFER PATIENT TO NEW UNIT CLAYTON HAWLEY Start: 02-23-2023 CBC W Auto Different ial panel - Blood CLAYTON SIMPSONRICHARD Start: 02-23-2023 Magnesium [Mass/volu me] in Serum or Plasma CLAYTON CORTESEL Start: 02-23-2023 RENAL FUNCTION PANEL NI UNIQUE CORTESEL Start: 02-23-2023 Renal function panel Ad german Powell MD Work Phone: Start: 02-22-2023 FULL CODE CLAYTON JORDANRICHARD Start: 02-22-2023 WEIGH PATIENT CLAYTON HAWLEY Start: 02-22-2023 CT HEAD WO IV CONTRAST CLAYTON JUWAN Start: 02-22-2023 Ct head/brain w/o co ntrast [...] metabolic 2000 panel - Serum or Plasma CLAYTONQuynh HAWLEY Start: 02-17-2023 CBC panel - Blood by Automated count CLAYTONQuynh HAWLEY Start: 02-17-2023 COAGULATION SCREEN TRAV MARTINEZ [...] X-ray of left foot DO Robert jimenes Jenniferstanley Work Phone: Plan of Treatment Date Care Activity Detail Author Start: 04-25-2030 DTaP/Tdap/Td Vaccine s (2 - Tdap) DTaP/Tdap/Td Vaccines (2 - Tdap) [facility] Start: 07-10-2024 End: 07-10-2024 Patient encounter procedure 07/10/2024 2:30 PM EDT Office Visit [facility] [address] [place] [phone] Meño Gomez, CREATIVE SERVICES INTERN [address] [place] [address] [facility] Start: 07-06-2024 End: 07-06-2024 Patient encounter procedure 07/06/2024 2:00 PM EDT Office Visit [facility] [address] [place] [phone] Meño Gomez, CREATIVE SERVICES INTERN [address] [place] [address] Acute pain of left knee [facility] Comment on above: Acute pain of left k nee Start: 03-16-2024 End: 03-16-2024 Patient encounter procedure 03/16/2024 8:30 AM EST Office Visit [facility] [address] [place] [phone] Meño Gomez, CREATIVE SERVICES INTERN [address] [place] [address] Arrived [facility] Comment on above: Arrived Start: 02-17-2024 End: 02-17-2024 Patient encounter procedure 02/17/2024 1:30 PM EST [facility] [address] [place] [address] Mac Toney DO [address] [place], [place] [id number] [facility] [address] Start: 12-28-2023 End: 12-28-2023 Patient encounter procedure 12/28/2023 1:15 PM EDT Office Visit [facility] [address] [place] [phone] Meño Gomez, [employer] [address] [facility] Start: 12-27-2023 End: 12-27-2023 Patient encounter procedure 12/27/2023 1:00 PM EDT [facility] [address] [address] [place] [address] Tawanna Estrella NP [address] [place], [place] [facility] [address] Start: 12-21-2023 End: 12-20-2024 Ferritin [Mass/volume] in Serum or Plasma Ferritin Lab Routine Anemia, unspecified type Expected: 12/21/2023 (Approximate), Expires: 12/20/2024 [facility] Work Phone: Comment on above: Expected: 12/21/2023 (Approximate), Expires: 12/20/2024 Start: 12-21-2023 End: 12-21-2023 Patient encounter procedure 12/21/2023 1:15 PM EDT Office Visit [facility] [address] [place] [phone] Meño Gomez, OLEG [place] [id number] [facility] Start: 12-21-2023 End: 12-21-2023 Patient encounter procedure 12/21/2023 10:30 AM EDT Office Visit [facility] [address] [place] [phone] Mac Toney DO [address] [place], [place] [id number] Arrived [facility] Comment on above: Arrived Start: 12-06-2023 End: 12-06-2023 Patient encounter procedure 12/06/2023 8:20 AM EDT Office Visit [facility] [address] [place] [address] Tawanna Estrella, CREATIVE SERVICES INTERN [address] [place], [place] [facility] [address] Start: 05-19-2023 Hemoglobin A1c measurement Diabetes: Hemoglobin A1C [facility] Start: 05-06-2023 End: 05-06-2023 Patient encounter procedure 05/06/2023 2:00 PM EST Office Visit [place] [address] [address] [facility] [address] [phone] Fercho Ham MD 6[address] [facility] 1, [address] [address] [facility] 1 Start: 03-11-2023 End: 03-11-2023 Patient encounter procedure 03/11/2023 3:15 PM EST Office Visit [facility] 1 [address] [facility] 1 [facility] [address] [place] [phone] Fercho Ham MD 6681 [facility] 1, [address] [address] [facility] 1 Start: 2004 Screening for malign ant neoplasm of breast Mammogram [facility] Start: 1985 Screening for malign ant neoplasm of cervix [facility] Start: 1983 Urine screening for protein Diabetes: Urine Protein Screening [facility] Start: 1982 Diabetes mellitus screening Diabetes Screening [facility] Start: 1982 Hepatitis C screening Hepatitis C Sc [facility] Start: 1974 Diabetic foot examination Diabetes: Foot Exam [facility] Start: 1974 Glaucoma screening Diabetes: R etinopathy Screening [facility] Start: 1970 Pneumococcal Vaccine : Pediatrics (0 to 5 Years) and At-Risk Patients (6 to 64 Years) (1 - PCV) Pneumococcal Vaccine: Pediatrics (0 to 5 Years) and At-Risk Patients (6 to 64 Years) (1 - PCV) [facility] Start: 1965 MMR Vaccines (1 of 1 - Standard series) MMR Vaccines (1 of 1 - Standard series) [facility] Start: 1964 COVID-19 Vaccine (#1) COVID-19 Vacci ne (#1) [facility] Start: 1964 HIV screening HIV Screening [facility] Start: 1964 Lipid panel Lipid Panel [facility] Start: 1964 Medicare Annual Wellness Visit Medicare Annual Wellness Visit (AWV) [facility] Start: 1964 Screening for malign ant neoplasm of colon [facility] Electrocardiogram, 12-lead PRN ACS symptoms Electrocardiogram, 12-lead PRN ACS symptoms ECG Routine As needed until discontinued starting 02/22/2023 [facility] Work Phone: Comment on above: As needed until disc ontinued starting 02/22/2023 End: 02-22-2023 Incentive spirometry Instruct Incentive spirometry Instruct Respiratory Care Routine Once for 1 Occurrences starting 02/22/2023 until 02/22/2023 [facility] Service Area Work Phone: Comment on above: Once for 1 Occurrenc es starting 02/22/2023 until 02/22/2023 Immunizations Immunization Date Immunization Notes Care Provider Fa cility 12-11-2022 influenza, injectabl e, quadrivalent, preservative free Clayton Hawley MD Work Phone: [facility] 12-08-2021 influenza, injectabl e, quadrivalent, preservative free Clayton Hawley MD Work Phone: [facility] 02-07-2021 zoster vaccine recombinant Clayton Hawley MD Work Phone: [facility] 12-03-2020 influenza, injectabl e, quadrivalent, preservative free Clayton Hawley MD Work Phone: [facility] 12-03-2020 zoster vaccine recombinant Clayton Hawley MD Work Phone: [facility] 04-25-2020 diphtheria, tetanus toxoids and pertussis vaccine Clayton Hawley MD Work Phone: [facility] 01-12-2020 influenza, injectabl e, quadrivalent, preservative free Clayton Hawley MD Work Phone: [facility] 10-08-2018 influenza, injectabl e, quadrivalent, preservative free Clayton Hawley MD Work Phone: [facility] 12-25-2017 influenza, injectabl e, quadrivalent, preservative free Clayton Hawley MD Work Phone: [facility] 03-18-2017 Influenza, injectabl e, Madin [place] Canine Kidney, preservative free, quadrivalent Clayton Hawley MD Work Phone: [facility] 07-21-2002 hepatitis B vaccine, adult dosage Clayton Hawley MD Work Phone: [facility] Work Phone: 03-03-2002 hepatitis B vaccine, adult dosage Clayton Hawley MD Work Phone: [facility] Work Phone: 01-13-2002 hepatitis B vaccine, adult dosage Clayton Hawley MD Work Phone: [facility] Payers Date Payer Category Payer Self-pay [id number] 2021 Medicaid [employer] MEDICARE A DVANTAGE [id number] 2021 Medicare [id number]. [id number] 1964 Unknown [id number] 2.16.840.1.812865.3.579.2.593 1964 Unknown [id number] 2.16.840.1.813529.3.579.2.593 1964 Unknown [id number] 2.16.840.1.445992.3.579.2.593 1964 Unknown [id number] 2.16.840.1.913074.3.579.2.593 1964 Unknown [id number] 2.16.840.1.348386.3.579.2.593 1964 Unknown [id number] 2.16.840.1.618075.3.579.2.1244 1964 Unknown [id number] 2.16.840.1.747385.3.579.2.1247 1964 Unknown [id number] 2.16.840.1.225274.3.579.2.1247 1964 Unknown [id number] 2.16.840.1.857998.3.579.2.124 1964 Unknown [id number] 2.16.840.1.993429.3.579.2.1246 1964 Unknown [id number] 2.16.840.1.858512.3.579.2.1244 1964 Unknown [id number] 2.16.840.1.836596.3.579.2.1244 1964 Unknown [id number] 2.16.840.1.356638.3.579.2.1244 1964 Unknown [id number] 2.16.840.1.952872.3.579.2.1244 1964 Unknown [id number] 2.16.840.1.127344.3.579.2.1285 1964 Unknown [id number] 2.16.840.1.402153.3.579.2.1285 1964 Unknown [id number] 2.16.840.1.280407.3.579.2.1285 1964 Unknown [id number] 2.16.840.1.628493.3.579.2.1285 1964 Unknown [id number] 2.16.840.1.840842.3.579.2.1285 1964 Unknown [id number] 2.16.840.1.682766.3.579.2.1285 1964 Unknown [id number] 2.16.840.1.581756.3.579.2.128 1964 Unknown [id number] 2.16.840.1.786498.3.579.2.1285 1964 Unknown [id number] 2.16.840.1.428080.3.579.2.1259 1964 Unknown [id number] 2.16.840.1.959303.3.579.2.1259 1964 Unknown [id number] 2.16840.1.974146.3.579.2.9 1964 Unknown [id number] 2.16.840.1.041920.3.579.2.9 1964 Unknown [id number] 2.16.840.1.891505.3.579.2.1258 1964 Unknown [id number] 2.16840.1.366815.3.579.2.1258 1964 Unknown [id number] 2.16840.1.376173.3.579.2.9 1959 Medicare [id number] 2.16.840.1.043201.19 1959 Medicare [id number] Medicare Medicare [id number] Unknown [id number] ODJFS [facility] MEDCAID [id number] Unknown [facility] [id number] Unknown [id number] 2.16.840.1.395727.3.579.2.531 Social History Date Type Detail Facility Unknown if ever smoked [employer] Other Start: 01-07-2023 End: 07-06-2024 Sex Assigned At [facility] Start: 07-18-2020 End: 07-29-2022 Tobacco smoking status NHIS Never smoked tobacco (finding) [facility] Start: 1965 Sex Assigned At Female F [facility] Start: 07-29-2022 End: 12-24-2022 Tobacco use and exposure Smokeless tobacco non-user [facility] Work Phone: Start: 01-07-2023 End: 07-06-2024 History of Social function [facility] Start: 1965 Sex Assigned At Not on file [facility] Work Phone: Start: 01-08-2023 End: 03-16-2023 Exposure to SARS-CoV-2 (event) Not sure [facility] Start: 02-22-2023 End: 03-16-2023 Alcohol intake Current drinker of alcohol (finding) [facility] Work Phone: How often to you hav e a drink containing alcohol? Never [facility] How many standard drinks containing alcohol do you have on a typical day? Patient does not drink [facility] Work Phone: Start: 02-17-2023 Alcohol Comment rare glass of wine [facility] Work Phone: Start: 10-04-2023 End: 07-06-2024 Alcoholic beverage intake Ex-drinker (finding) [facility] Start: 06-12-2024 Sex Female (finding) [facility] Medical Equipment Procedure Code Equipment Code Equipment Origin al Text Equipment Identifier Dates Graft Matrix, Du ral, Duragen Plus 2x2 (/) - [id number] Start: 02-22-2023 Cross Pin, Axs Self-Tap, 1.5 X 4mm - [id number] Start: 02-22-2023 Plate, 2h 10mm B ar Ultra Low Profile - [id number] Start: 02-22-2023 Clinical Notes 07-18-2021 to [...] PARTIAL MENISCECTOMY HX GASTRIC [facility]EVE [facility]EE PAIN XRAY TODAY [...] Use: Not At Risk (02/22/2023) Received from [facility] AUDIT-C Frequency of Alcohol Consumption: Never Average Number of Drinks: Patient does not drink Frequency of Binge Drinking: Never IMAGING: XR knee 1 or 2 views left Imaging Result: 07/06/2024: AP and lateral views of left knee showed severe osteoarthritis with valgus deformity with iaod-dt-xuii articulation, flattening of the articular surfaces to the medial joint line lateral joint line and patellofemoral joint. Subchondral sclerosis was noted at the medial joint line surfaces as well as the lateral joint line and patellofemoral joint. Marginal osteophytic formation was noted tricompartmentally. There is no evidence of fracture or dislocation. Impression: severe degenerative joint disease left knee with valgus deformity Meño Gomez OPERATIONS RESEARCH ENGINEER-TAGMAN XR knee 1 or 2 views right Imaging Result: 07/06/2024: AP and lateral views of right knee showed severe osteoarthritis with valgus deformity with near hgtf-ty-srnx articulation, flattening of the articular surfaces to the medial joint line lateral joint line and patellofemoral joint. Subchondral sclerosis was noted at the medial joint line surfaces as well as the lateral joint line and patellofemoral joint. Marginal osteophytic formation was noted tricompartmentally. There is no evidence of fracture or dislocation. Impression: severe degenerative joint disease right knee with valgus deformity Meño Luis Miguel OPERATIONS RESEARCH ENGINEER-TAGMAN L Inj/Asp: L knee on 07/06/2024 2:07 [...] develop for requiring urgent evaluation. Meño Gomez OPERATIONS RESEARCH ENGINEER-TAGMAN documented in this encounter [facility] 03-16-2024 History of Present illness Narrative Associated [...] PARTIAL MENISCECTOMY HX GASTRIC SLEEVE 04/13/[facility] ALLERGIES: No Known Allergies HOME MEDICATIONS: Current [...] develop for requiring urgent evaluation. Meño Gomez OPERATIONS RESEARCH ENGINEER-TAGMAN documented in this encounter [facility] 12-21-2023 History of Present illness Narrative Associated [...] knee arthroscopy: right mar 2015 Dr. Curran [facility], left knee 2010 Dr. Sherie Gil, no brace, P.T. in 2010 after her surgery, XR, TYL, cane, depo injection 05/12/22, XR [facility] 05/18/23, depo injection 05/18/23 Hx B/L partial menisectomy [facility]IES: No Known Allergies HOME MEDICATIONS: Current [...] develop for requiring urgent evaluation. Meño Gomez OPERATIONS RESEARCH ENGINEER-TAGMAN documented in this encounter [facility] 12-21-2023 History of Present illness Narrative Chief [...] of left knee 07/20/2022 Depression (CMS/HCC) Diabetes (CMS/HCC) HTN (hypertension) (CMS/HCC) Hypersomnia Internal derangement of left knee 07/20/2022 Memory loss Obesity Obstructive sleep apnea Osteoarthritis of knee 07/20/2022 Restless leg syndrome Snoring Tremor Past Surgical History: Procedure Laterality Date BRAIN SURGERY 03/2023 Was leaking spinal fluid SECTION, CLASSIC 1990 and 1992 CHOLECYSTECTOMY GASTRIC BYPASS 04/13/2023 Dr Doherty, [facility] HEEL SPUR EXCISION Right HYSTERECTOMY 1999 total [place] ARTHROSCOPY KNEE DIAGNOSTIC W/WO SYNOVIAL BX SPX Right 2015 Dr. Curran [place] ARTHROSCOPY KNEE DIAGNOSTIC W/WO SYNOVIAL BX SPX [...] was councelled on the risks of stroke, ND, and sudden with SHASHA. This was discussed with the patient, all questions were answered and they agreed with the treatment plan. The patient is to call with any worsening of the condition or new symptoms. Return to clinic: 2-3 months documented in this encounter [facility] 11-23-2023 Telephone encounter Note Noted. [facility] 11-23-2023 Miscellaneous Notes Noted. Pt was unable to come in this week and drive all the way to [place]. Has appt scheduled for 12/06/2023 at [facility]. Can she come in this week. I know we have openings. Patient calls stating that pramipexole is not working for RLS. Is unable to sleep, jerking has worsened and tightness have worsened since taking med. States that Requip at least helped, however, this med is making it to where pt can barely make it in a car. documented in this encounter [facility] 11-23-2023 Telephone encounter Note Pt was unable to come in this week and drive all the way to [place] from [place]. Has appt scheduled for 12/06/2023 at [facility]. [facility] 11-23-2023 Telephone encounter Note Can she come in this week. I know we have openings. [facility] 11-23-2023 Telephone encounter Note Patient calls stating that pramipexole is not working for RLS. Is unable to sleep, jerking has worsened and tightness have worsened since taking med. States that Requip at least helped, however, this med is making it to where pt can barely make it in a car. [facility] 03-16-2023 History of Present illness [...] Fercho Ham MD documented in this encounter [facility] Work Phone: 02-25-2023 History of Present illness [...] for specific attendings. Please reach out via [employer]. If you are not able to reach a resident in a timely fashion or if any urgent issue, please page. Camryn Barrios MD (Martin Stanton Semaan, [place]) - pager [phone] Dayami Velasco MD (Martin Stanton Semaan, Jitendra) Liberty Maldonado MD (Bethanie Chen, [place]) - pager [phone] For the following providers - ([place], [place], Lara) - please epic [employer] the resident writing the note or page the residents above. On weekends of after 5pm, please page [phone]. Associated attestation - Fercho Ham MD - [...] SBA. Precautions: Hearing/Visual Limitations: WFL but slightly LITT[place] TRAVERSE Medical Precautions: Fall precautions Precautions Comment: SBP [...] Bathroom Toilet: Standard Prior Function: Level of [place]: Independent with ADLs and functional transfers, Independent [...] AROM WFL, strength >/= 3+/5) Outcome Measures: [facility] Daily Activity Putting on and taking [...] Prior Function Per Pt/Caregiver Report Level of [place]: Independent with ADLs and functional transfers, Independent [...] alternating marches in standing 5x Outcome Measures: [facility] Basic Mobility Turning from your back [...] only Sitting: Supervision or set-up only Transfer Mcb-dy-Dlclx: Supervision or set-up only Transfer Kanghk-gg-Mwe: Supervision or set-up only Total Score: 22 [...] while in bed - Dispo: transfer to [facility] 5 D/w Dr. Ham Residents to contact during the week between 6am to 5pm below regarding patient related issues for specific attendings. Please reach out via [employer]. If you are not able to reach a resident in a timely fashion or if any urgent issue, please page. Camryn Barrios MD (Martin Stanton Semaan, Jitendra) - pager [phone] Dayami Velasco MD (Martin Stanton Semaan, Jitendra) Liberty Maldonado MD (Bethanie Chen, [place]) - pager [phone] For the following providers - ([place], [place], Lara) - please epic [employer] the resident writing the note or page the residents above. On weekends of after 5pm, please page [phone]. Associated attestation - Fercho Ham MD - [...] for CSF leak. Pharmacy reviewed the patient's oqoxa-yj-rtowuclly medications and allergies for accuracy. The list below reflects the updated MENTAL HEALTH CASE MANAGER list. Comments regarding how patient may be [...] Below are additional concerns with the patient's MENTAL HEALTH CASE MANAGER list. -FACUNDO Myers PharmD Transitions of Care Pharmacist [facility] Please reach out via Secure Chat for questions, or if no response call [phone] or [employer] documented in this encounter [facility] Work Phone: 02-25-2023 Hospital course [...] Center 03/11/2023 3:15 PM Fercho Ham MD [id number] [place] Camryn Barrios MD Associated attestation - [...] in the note. documented in this encounter [facility] Work Phone: 02-24-2023 Hospital Discharge instructions Camryn [...] to the ED. documented in this encounter [facility] Work Phone: 02-23-2023 Plan of [...] Outcome: Progressing Goal: Promote/optimize nutrition Outcome: Progressing [facility] 02-23-2023 Miscellaneous Notes The patient's [...] (R) Operative Note Date: 02/22/2023 OR Location: [facility] OR Name: Ya Womack, : 1965, Age: 57 y.o., , Sex: female Diagnosis Pre-op Diagnosis * CSF leak [G96.00] Post-op Diagnosis * CSF leak [G96.00] Procedures Craniotomy Middle Fossa with mastodectomy 18072 - MN RESCJ/EXC LES ITPRL FOSSA SPACE APEX IDRL W/RPR Craniotomy Middle Fossa with mastoidectomy 68300 - MN RESCJ/EXC LES ITPRL FOSSA SPACE APEX IDRL W/RPR MN STRTCTC CPTR ASSTD PX CRANIAL INTRADURAL [83097] MN MICROSURG TQS REQ USE OPERATING MICROSCOPE [77895] MN INFRATEMPO MID CRANIAL FOSSA W/WO DCOMPR&/MOBI [63272] MN IONM 1 ON 1 IN OR W/ATTENDANCE EACH 15 MINUTES [23546] Surgeons Panel 1: * Clayton Hawley - Primary Panel 2: * Fercho Ham - Primary Resident/Fellow/Other Drug Safety Assistant: Surgeon(s) and Role: Panel 1: * Katherine [...] 1285 mL Specimen: No specimens collected Staff: [employer] Repairers: Monae Jean RN Relief [employer] Repairers: Amanda Benavides RN Relief Scrub: Katie Jennings [...] MATRIX, DURAL, DURAGEN PLUS 2X2 (1/PK) - [id number] Implanted Neuro Interventional Implant CROSS PIN, AXS SELF-TAP, 1.5 X 4MM - [id number] Implanted Screw PLATE, YY 6H 8MM BAR ULTRA LOW PROFILE - [id number] Implanted Screw PLATE, 2H 10MM BAR ULTRA LOW PROFILE - [id number] Implanted Findings: Indications: Ya Womack is an [...] Disposition: Condition: Additional Details: Attending Attestation: Clayton Hawely Craniotomy Middle Fossa with mastodectomy (R) Operative Note Date: 02/22/2023 OR Location: [facility] OR Name: Ya Womack, : 1965, Age: 57 y.o., , Sex: female Diagnosis Pre-op Diagnosis * CSF leak [G96.00] Post-op Diagnosis * CSF leak [G96.00] Procedures Craniotomy Middle Fossa with mastodectomy 85773 - MN RESCJ/EXC LES ITPRL FOSSA SPACE APEX IDRL W/RPR Craniotomy Middle Fossa with mastoidectomy 05542 - MN RESCJ/EXC LES ITPRL FOSSA SPACE APEX IDRL W/RPR MN STRTCTC CPTR ASSTD PX CRANIAL INTRADURAL [24997] MN MICROSURG TQS REQ USE OPERATING MICROSCOPE [08873] MN INFRATEMPO MID CRANIAL FOSSA W/WO DCOMPR&/MOBI [63096] MN IONM 1 ON 1 IN OR W/ATTENDANCE EACH 15 MINUTES [49150] Surgeons Panel 1: * Clayton Hawley - Primary Panel 2: * Fercho Ham - Primary Resident/Fellow/Other Drug Safety Assistant: Surgeon(s) and Role: Panel 1: * Katherine [...] 1285 mL Specimen: No specimens collected Staff: [employer] Repairers: Monae Jean RN Relief [employer] Repairers: Amanda Benavides RN Relief Scrub: Katie Jennings RN Scrub Person: Andrew Strong Drains and/or Catheters: Urethral Catheter Non-latex 16 Fr. (Active) Lumbar Drain (Active) Status 10 mL/hr 12/18/23 1300 CSF Color Clear 02/22/23 1300 Site Description Healing 02/22/23 1337 Dressing Status Clean;Dry 02/22/23 1337 CSF Output (mL) 10 mL 02/22/23 1300 [REMOVED] Closed/Suction Drain Inferior;Midline Back (Removed) Tourniquet Times: Implants: Implants Type Name Action Serial No. 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 Secondary repair of dural/cerebrospinal fluid leak [44927-40] - Right 3. Needle electromyography; cranial nerve supplied muscle(s), unilateral - Facial nerve. - Right 4. Microsurgical techniques, requiring use of operating microscope - Right 5. Right ear tube removal with underlay myringoplasty [37056] Surgeons Panel 1: * Clayton Hawley - Primary Panel 2: * Fercho Ham - Primary Resident/Fellow/Other Drug Safety Assistant: Surgeon(s) and Role: Panel 1: * Katherine [...] 1285 mL Specimen: No specimens collected Staff: [employer] Repairers: Monae Jean RN Relief [employer] Repairers: Amanda Benavides RN Relief Scrub: Katie Jennings RN Scrub Person: Andrew Vides; Anisacarlos Strong Drains and/or Catheters: Urethral Catheter Non-latex [...] MATRIX, DURAL, DURAGEN PLUS 2X2 (/) - [id number] Implanted Neuro Interventional Implant CROSS PIN, AXS SELF-TAP, 1.5 X 4MM - [id number] Implanted Screw PLATE, YY 6H 8MM BAR ULTRA LOW PROFILE - [id number] Implanted Screw PLATE, 2H 10MM BAR ULTRA LOW PROFILE - [id number] Implanted Findings: 1. Lumbar drain placed by [...] had reached dura along all edges, a [place] 1 dissector was used to carefully elevate [...] note for details. Date: 02/22/2023 OR Location: [facility] OR Name: Ya Womack, : 1965, Age: 57 y.o., , Sex: female Diagnosis Pre-op Diagnosis * CSF leak [G96.00] Post-op Diagnosis * CSF leak [G96.00] Procedures Craniotomy Middle Fossa with mastodectomy 83849 - MN RESCJ/EXC LES ITPRL FOSSA SPACE APEX IDRL W/RPR Craniotomy Middle Fossa with mastoidectomy 34263 - MN RESCJ/EXC LES ITPRL FOSSA SPACE APEX IDRL W/RPR MN STRTCTC CPTR ASSTD PX CRANIAL INTRADURAL [52270] MN MICROSURG TQS REQ USE OPERATING MICROSCOPE [25092] MN INFRATEMPO MID CRANIAL FOSSA W/WO DCOMPR&/MOBI [66202] MN IONM 1 ON 1 IN OR W/ATTENDANCE EACH 15 MINUTES [71776] Surgeons Panel 1: * Clayton Hawley - Primary Panel 2: * Fercho Ham - Primary Resident/Fellow/Other Drug Safety Assistant: Surgeon(s) and Role: Panel 1: * Katherine [...] -215 mL Specimen: No specimens collected Staff: [employer] Repairers: Monae Jean RN Scrub Person: Andrew Vides; Anisa Strong Findings: good repair of CSF leak Complications: None; patient tolerated the procedure well. Disposition: PACU - hemodynamically stable. Condition: stable Specimens Collected: No specimens collected Attending Attestation: Clayton Hawley documented in this encounter [facility] Work Phone: 02-22-2023 Plan of care note Problem: Skin Goal: Prevent/manage excess moisture Outcome: Progressing Goal: Prevent/minimize sheer/friction injuries Outcome: Progressing Goal: Promote/optimize nutrition Outcome: Progressing The patient's goals for the shift include no pain The clinical goals for the shift include stable neuro exam [facility] 02-22-2023 Plan of care note The patient's goals for the shift include improved pain The clinical goals for the shift include stable neuro exam [facility] Work Phone: 02-22-2023 Hospital Note [...] in stable condition with follow up arranged. [facility] Work Phone: 02-22-2023 Note Formatting of this n ote is different from the original. Craniotomy Middle Fossa with mastodectomy (R) Operative Note Date: 02/22/2023 OR Location: [facility] OR Name: Ya Womack, : 1965, Age: 57 y.o., , Sex: female Diagnosis Pre-op Diagnosis * CSF leak [G96.00] Post-op Diagnosis * CSF leak [G96.00] Procedures Craniotomy Middle Fossa with mastodectomy 69343 - MN RESCJ/EXC LES ITPRL FOSSA SPACE APEX IDRL W/RPR Craniotomy Middle Fossa with mastoidectomy 36125 - MN RESCJ/EXC LES ITPRL FOSSA SPACE APEX IDRL W/RPR MN STRTCTC CPTR ASSTD PX CRANIAL INTRADURAL [24930] MN MICROSURG TQS REQ USE OPERATING MICROSCOPE [75738] MN INFRATEMPO MID CRANIAL FOSSA W/WO DCOMPR&/MOBI [16825] MN IONM 1 ON 1 IN OR W/ATTENDANCE EACH 15 MINUTES [53177] Surgeons Panel 1: * Clayton Hawley - Primary Panel 2: * Fercho Ham - Primary Resident/Fellow/Other Drug Safety Assistant: Surgeon(s) and Role: Panel 1: * Katherine [...] 1285 mL Specimen: No specimens collected Staff: [employer] Repairers: Monae Jean RN Relief [employer] Cart Repairers: Amanda Benavides RN Relief Scrub: Katie Jennings [...] MATRIX, DURAL, DURAGEN PLUS 2X2 (1/PK) - [id number] Implanted Neuro Interventional Implant CROSS PIN, AXS SELF-TAP, 1.5 X 4MM - [id number] Implanted Screw PLATE, YY 6H 8MM BAR ULTRA LOW PROFILE - [id number] Implanted Screw PLATE, 2H 10MM BAR ULTRA LOW PROFILE - [id number] Implanted Findings: Indications: Ya Womack is an [...] screws and the closure performed by Dr. oRshni Hnery dictated separately also thank you Complications: Disposition: Condition: Additional Details: Attending Attestation: Clayton Hawley [facility] Work Phone: 02-22-2023 Note Formatting of this n ote is different from the original. Craniotomy Middle Fossa with mastodectomy (R) Operative Note Date: 02/22/2023 OR Location: [facility] OR Name: Ya Womack, : 1965, Age: 57 y.o., , Sex: female Diagnosis Pre-op Diagnosis * CSF leak [G96.00] Post-op Diagnosis * CSF leak [G96.00] Procedures Craniotomy Middle Fossa with mastodectomy 11191 - MN RESCJ/EXC LES ITPRL FOSSA SPACE APEX IDRL W/RPR Craniotomy Middle Fossa with mastoidectomy 26754 - MN RESCJ/EXC LES ITPRL FOSSA SPACE APEX IDRL W/RPR MN STRTCTC CPTR ASSTD PX CRANIAL INTRADURAL [79169] MN MICROSURG TQS REQ USE OPERATING MICROSCOPE [77927] MN INFRATEMPO MID CRANIAL FOSSA W/WO DCOMPR&/MOBI [26856] MN IONM 1 ON 1 IN OR W/ATTENDANCE EACH 15 MINUTES [28631] Surgeons Panel 1: * Clayton Hawley - Primary Panel 2: * Fercho Ham - Primary Resident/Fellow/Other Drug Safety Assistant: Surgeon(s) and Role: Panel 1: * Katherine [...] 1285 mL Specimen: No specimens collected Staff: [employer] Repairers: Monae Jean RN Relief [employer] Repairers: Amanda Benavides RN Relief Scrub: Katie Jennings RN Scrub Person: Andrew Vdies; Anisa Strong Drains and/or Catheters: Urethral Catheter [...] MATRIX, DURAL, DURAGEN PLUS 2X2 (1/PK) - [id number] Implanted Neuro Interventional Implant CROSS PIN, AXS SELF-TAP, 1.5 X 4MM - [id number] Implanted Screw PLATE, YY 6H 8MM BAR ULTRA LOW PROFILE - [id number] Implanted Screw PLATE, 2H 10MM BAR ULTRA LOW PROFILE - [id number] Implanted Findings: Indications: Ya Womack is an [...] Condition: Additional Details: Attending Attestation: Clayton Hawley [facility] Work Phone: 02-22-2023 Note Formatting of this n ote is different from the original. Craniotomy Middle Fossa with mastodectomy (R) Operative Note Date: 02/22/2023 OR Location: [facility] OR Name: Ya Womack, : 1965, [...] for otorrhea, and temporal skull base encephalocele [86953-08] - Middle Fossa Approach for repair of tegmen encephalocele and CSF leak, Duraplasty - Right 2. Secondary repair of dural/cerebrospinal fluid leak [41893-89] - Right 3. Needle electromyography; cranial nerve supplied muscle(s), unilateral - Facial nerve. - Right 4. Microsurgical techniques, requiring use of operating microscope - Right 5. Right ear tube removal with underlay myringoplasty [91727] Surgeons Panel 1: * Clayton Hawley - Primary Panel 2: * Fercho Ham - Primary Resident/Fellow/Other Drug Safety Assistant: Surgeon(s) and Role: Panel 1: * Katherine Polanco MD - Resident - Assisting Panel 2: * Leslye Villasenor MD - Resident - Assisting Procedure Summary Anesthesia: General ASA: III Anesthesia Staff: Anesthesiologist: Nish Ferguson MD PhD C-AA: SAGAR Rivera Capp; SAGAR Ibrahmi Estimated Blood Loss: 25mL Intra-op Medications: Medication [...] 1285 mL Specimen: No specimens collected Staff: [employer] Repairers: Monae Jean RN Relief [employer] Cart Repairers: Amanda Benavides RN Relief Scrub: Katie Jennings [...] MATRIX, DURAL, DURAGEN PLUS 2X2 (1/PK) - [id number] Implanted Neuro Interventional Implant CROSS PIN, AXS SELF-TAP, 1.5 X 4MM - [id number] Implanted Screw PLATE, YY 6H 8MM BAR ULTRA LOW PROFILE - [id number] Implanted Screw PLATE, 2H 10MM BAR ULTRA LOW PROFILE - [id number] Implanted Findings: 1. Lumbar drain placed by [...] had reached dura along all edges, a [place] 1 dissector was used to carefully elevate [...] At this stage, bactroban, telfa, and a [place] dressing were then placed over the incision. [...] entire duration. See resident note for details. [facility] Work Phone: 02-22-2023 Note Formatting of this n ote is different from the original. Date: 02/22/2023 OR Location: [facility] OR Name: Ya Womack, : 1965, Age: 57 y.o., , Sex: female Diagnosis Pre-op Diagnosis * CSF leak [G96.00] Post-op Diagnosis * CSF leak [G96.00] Procedures Craniotomy Middle Fossa with mastodectomy 09928 - MN RESCJ/EXC LES ITPRL FOSSA SPACE APEX IDRL W/RPR Craniotomy Middle Fossa with mastoidectomy 96719 - MN RESCJ/EXC LES ITPRL FOSSA SPACE APEX IDRL W/RPR MN STRTCTC CPTR ASSTD PX CRANIAL INTRADURAL [71252] MN MICROSURG TQS REQ USE OPERATING MICROSCOPE [89765] MN INFRATEMPO MID CRANIAL FOSSA W/WO DCOMPR&/MOBI [34457] MN IONM 1 ON 1 IN OR W/ATTENDANCE EACH 15 MINUTES [86416] Surgeons Panel 1: * Clayton Hawley - Primary Panel 2: * Fercho Ham - Primary Resident/Fellow/Other Drug Safety Assistant: Surgeon(s) and Role: Panel 1: * Katherine [...] -215 mL Specimen: No specimens collected Staff: Electric [employer] Cart Repairers: Monae Jean RN Scrub Person: Andrew Vides; Anisa Strong Findings: good repair of CSF leak Complications: None; patient tolerated the procedure well. Disposition: PACU - hemodynamically stable. Condition: stable Specimens Collected: No specimens collected Attending Attestation: Clayton Hawley [facility] Work Phone: 02-22-2023 History and physical note [...] mouth once daily., Disp: , Rfl: HYDROcodone-acetaminophen ([place]) 5-325 mg tablet, Take by mouth., Disp: [...] proceed. We will proceed today with surgery. [facility] Work Phone: 02-22-2023 History and [...] mouth once daily., Disp: , Rfl: HYDROcodone-acetaminophen ([place]) 5-325 mg tablet, Take by mouth., Disp: [...] and morning of surgery 02/17/23 Renae Bowles, OPERATIONS RESEARCH ENGINEER-TAGMAN DULoxetine (Cymbalta) [address] capsule Take [...] 01/07/2023 01/07/23 02/17/23 Fercho Ham MD HYDROcodone-acetaminophen ([place]) 5-325 mg tablet Take by mouth. 02/17/23 [...] stress-induced ischemia-normal dobutamine stress echo. Performed at [facility] in [facility]- found in care everywhere tab. No additional [...] Straw, Yellow Appearance, Urine Clear Clear Specific [place], Urine 1.019 1.005 - 1.035 pH, Urine [...] No significant growth documented in this encounter [facility] Work Phone: 02-22-2023 Attending History [...] 01/07/2023 01/07/23 02/17/23 Fercho Ham MD HYDROcodone-acetaminophen ([place]) 5-325 mg tablet Take by mouth. 02/17/23 [...] stress-induced ischemia-normal dobutamine stress echo. Performed at [facility] in [facility]- found in care everywhere tab. No additional [...] Straw, Yellow Appearance, Urine Clear Clear Specific [place], Urine 1.019 1.005 - 1.035 pH, Urine [...] Ref Range Urine Culture No significant growth [facility] Work Phone: 01-18-2023 History of Present illness [...] (CYMBALTA) 120 mg, oral, Daily RT HYDROcodone-acetaminophen ([place]) 5-325 mg tablet oral hydrOXYzine pamoate (VISTARIL) [...] the surgical procedure. documented in this encounter [facility] Work Phone: 10-08-2022 Evaluation note [...] understanding and is agreeable to treatment plan [employer] Other 07-08-2023 Evaluation note* Encounter Date Diagnosis [...] no improvement in 2 to 3 days [employer] Other 05-13-2022 Evaluation note* Encounter Date Diagnosis [...] fractu re home care material was printed [employer] Other Evaluation noteNo assessment information available [facility] Work Phone: Evaluation note* Diagnosis CSF leak- Primary Other specified disorder of nervous system documented in this encounter [facility] Work Phone: Evaluation note* Diagnosis CSF leak- Primary Other specified disorder of nervous system CSF leak Other specified disorder of nervous system Post-op pain Other acute postoperative pain Bipolar disorder ([facility]) Bipolar disorder, unspecified Depression Depressive disorder, not elsewhere classified Anxiety Anxiety state, unspecified SHASHA (obstructive sleep apnea) Obstructive sleep apnea (adult) (pediatric) HTN (hypertension) Unspecified essential hypertension Hyperlipidemia Other and unspecified hyperlipidemia Obesity Obesity, unspecified documented in this encounter [facility] Work Phone: Evaluation note* Diagnosis 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 documented in this encounter [facility] Work Phone: Evaluation note* Diagnosis Onset Date Resolution Status Gout acute [facility] Work Phone: Evaluation note* Diagnosis Anemia, [...] of left knee documented in this encounter [facility]* Diagnosis Primary osteoarthritis of left knee- Primary Chronic pain of left knee Chronic pain of right knee Primary osteoarthritis of right knee documented in this encounter [facility] HealthcareHistory general Narrative - Reported* Type Description Date Medical History hypertension Medical History histoplasmosis Surgical History , cholecystectomy, Surgical History hysterectomy 1993 Hospitalization History [employer] Other History general Narrative - Reported* Type Description Date Medical History hypertension Medical History histoplasmosis Medical History ANXIETY AND DEPRESSION Surgical History , cholecystectomy, Surgical History hysterectomy 1993 Hospitalization History [employer] Other [facility] general Narrative - Reported* Type Description Date Medical History hypertension Medical History histoplasmosis Medical History ANXIETY AND DEPRESSION Surgical History , cholecystectomy, Surgical History hysterectomy 1993 Surgical History tube in right ear 10/2022 Hospitalization History [employer] Other Summary Purpose Family History No Family [...] and content) DATE CREATED AUTHOR 03/16/2019 [facility] DATE CREATED AUTHOR AUTHOR'S ORGANIZ ATION 05/02/2021 [facility] DATE CREATED AUTHOR AUTHOR'S ORGANIZ ATION 12/16/2021 [facility] DATE CREATED AUTHOR AUTHOR'S ORGANIZ ATION 03/21/2023 [facility] DATE CREATED AUTHOR AUTHOR'S ORGANIZ ATION 07/09/2023 [facility] DATE CREATED AUTHOR AUTHOR'S ORGANIZ ATION 11/25/2023 [facility] DATE CREATED AUTHOR AUTHOR'S ORGANIZ ATION 01/22/2024 [facility] DATE CREATED AUTHOR AUTHOR'S ORGANIZ ATION 01/23/2024 [facility] DATE CREATED AUTHOR AUTHOR'S ORGANIZ ATION 07/11/2024 [facility] DATE CREATED AUTHOR AUTHOR'S ORGANIZ ATION 08/20/2024 [facility] REASON FOR VISIT (unrecogniz ed section and content) Specialty Diagnoses / Procedures Referred By Jeffry cuenca Referred To Contact Diagnoses CSF leak CSF leak [G96.00] Procedures MN RESCJ/EXC LES ITPRL FOSSA SPACE APEX IDRL W/RPR MN RESCJ/EXC LES ITPRL FOSSA SPACE APEX IDRL W/RPR MN STRTCTC CPTR ASSTD PX CRANIAL INTRADURAL MN MICROSURG TQS REQ USE OPERATING MICROSCOPE MN INFRATEMPO MID CRANIAL FOSSA W/WO DCOMPR&/MOBI MN IONM 1 ON 1 IN OR W/ATTENDANCE EACH 15 MINUTES Craniotomy Middle Fossa with mastodectomy Craniotomy Middle [place]ossa [place] [address] [facility] Department [place] [address] [place] [address] [place] [address] Referral ID Status Reason Start Date Expiration Date Visits Re quested Visits Authorized [id number] 1 1 Reason Comments Post-op Visit Stitch [...] Provider Active DANA Shook Attending Provider Active Chaperone Relationship Specialty Start Date End Date Harlan Almeida DO [address] [facility], [place] [address] PCP - General Family Medicine 12/09/22 Chaperone Relationship Specialty Start Date End Date Joseph Harlan Overton [address] [place] [address] PCP - General Family Medicine 12/09/22 Chaperone Relationship Specialty Start Date End Date Joseph Harlan Overton [address] [place] [address] PCP - General Family Medicine 12/09/22 Chaperone Relationship Specialty Start Date End Date Harlan Almeida MD [address] [place] [address] PCP - General Family Medicine 07/29/22 Chaperone Relationship Specialty Start Date End Date Harlan Almeida MD [address] [place] [address] PCP - General Family Medicine 07/29/22 Chaperone Relationship Specialty Start Date End Date Harlan Almeida MD [address] [place] [address] PCP - General Family Medicine 07/29/22 Chaperone Relationship Specialty Start Date End Date Harlan Almeida MD [address] [place] [address] PCP - General Family Medicine 07/29/22 Chaperone Relationship Specialty Start Date End Date Harlan Almeida MD [address] [place] [address] PCP - General Family Medicine 07/29/22 Chaperone Relationship Specialty Start Date End Date Harlan Almeida MD [address] [place] [address] PCP - General Family Medicine 07/29/22 Chaperone Relationship Specialty Start Date End Date Harlan Almeida MD [address] [place] [address] PCP - General Family Medicine 07/29/22 Chaperone Relationship Specialty Start Date End Date Harlan Almeida MD PCP - General Family Medicine 07/29/22 Chaperone Relationship Specialty Start Date End Date Harlan [...] Provider: Giuseppe Thompson LPN)2014 (Given - Provider: Lavrene Shook RN) 0844 (Given - Provider: Daily [...] No, Suspected Indication (Select all that apply): DRESS FINISHER/Meningoencephalitis, Type of Therapy: Empiric 0907 (New Bag [...] (Given - Provider: Ron Marrero RN) 0542 ([facility] Hold - Provider: Automatic Transfer Provider - Reason: Unreviewed Transfer Orders)0653 ([facility] Unhold - Provider: Gilberto Castellon MD) hydrOXYzine pamoate (Vistaril) capsule 50 mg 50 mg, oral, 3 times daily PRN, itching, Starting on Wed02/22/23 at 1256 0542 ([facility] Hold - Provider: Automatic Transfer Provider - Reason: Unreviewed Transfer Orders)0653 ([facility] Unhold - Provider: Gilberto Castellon MD) naloxone (Narcan) injection 0.2 mg 0.2 mg, intravenous, Every 5 min PRN, respiratory depression, Starting on Wed02/22/23 at 1256, If respiratory rate is less than 8 breaths/minute or patient is difficult to arouse stop any narcotics and contact physician. Administer slow IV push. Repeat as ordered until patient's respiratory rate is greater than 12 breaths/minute. 0542 ([facility] Hold - Provider: Automatic Transfer Provider - Reason: Unreviewed Transfer Orders)0653 ([facility] Unhold - Provider: Gilberto Castellon MD) [...] IV Push, administer over 3-5 minutes. 0542 ([facility] Hold - Provider: Automatic Transfer Provider - Reason: Unreviewed Transfer Orders)0653 ([facility] Unhold - Provider: Gilberto Castellon MD) ondansetron (Zofran) tablet 4 mg(Linked Group 1) 4 mg, oral, Every 8 hours PRN, nausea/vomiting, first line, Starting on Wed02/22/23 at 1256, 1st Line. Use oral route first, if possible. If inadequate response within 60 minutes, proceed to next-line agent for same PRN reason or contact provider if no further options ordered. 0542 ([facility] Hold - Provider: Automatic Transfer Provider - Reason: Unreviewed Transfer Orders)0653 ([facility] Unhold - Provider: Gilberto Castellon MD) [...] (Given - Provider: Janett Zhou RN) 0542 ([facility] Hold - Provider: Automatic Transfer Provider - Reason: Unreviewed Transfer Orders)0653 ([facility] Unhold - Provider: Gilberto Castellon MD) [...] (Given - Provider: Neptali Robbins RN) 0542 ([facility] Hold - Provider: Automatic Transfer Provider - Reason: Unreviewed Transfer Orders)0653 ([facility] Unhold - Provider: Gilberto Castellon MD)0952 (Given - Provider: Giuseppe Thompson LPN)2014 (Given - Provider: Laverne Shook RN)2358 (Given - Provider: Laverne Shook RN) 0507 (Given - Provider: Laverne Shook RN) Linked [...] BE BASED ON THE PRIMARY CLINICAL RECORDS. [employer] [facility]. provides no warranty or guarantee of the accuracy or completeness of information in this document.
--- NOTE | 2024-08-30 08:53 | CT_ITS ---
The [address] [address] Patient Name: YULI ORANTES MRN: [id number] date: 1965 Sex: F Assigned Patient Location: ER Current Patient Location: ER Accession/Order Number: [id number] Exam Date: 08/30/2024 09:46 Report Date: 08/30/2024 09:57 At the request of: DANIEL MALONEY MD Procedure: CT abdomen pelvis w con CT ABDOMEN AND PELVIS WITH CONTRAST COMPARISON: 06/19/2024 CLINICAL DATA: Abdominal pain for the past day. Spiral images were obtained through the abdomen and pelvis following 100 mL of Omnipaque 300. This CT exam was performed using one or more following dose reduction techniques: Automated exposure control, adjustment of the mA and/or kV according to patient size, or use of iterative reconstruction technique. Limited cuts through the lung bases show scarring on the left. Calcified granulomas are visualized within the liver and spleen. The gallbladder is surgically absent. There is mild biliary prominence, without evidence of choledocholithiasis. The pancreas and adrenal glands show no acute findings. The renal nephrograms are symmetric. No hydronephrosis is seen. There is a small right renal cyst. The abdominal aorta is normal caliber. No ascites or lymphadenopathy is seen. There are postoperative changes of bariatric surgery. There are distended fluid containing small bowel loops throughout the abdomen. There is mild stool within the right colon. The left colon is underdistended. Subtle levoscoliotic curvature and mild degenerative changes are visualized at the spine. Images through the pelvis show additional distended fluid containing small bowel loops. The distal ileum is normal caliber. The transition is at the right lower quadrant. No mass is seen. The appendix is not well visualized. There is mild to moderate stool at the sigmoid colon down to the rectum. No diverticular disease is noted. The uterus is surgically absent. The urinary bladder is poorly distended for evaluation. A right paraumbilical hernia containing fat is again noted. There is also a small umbilical hernia that contains a knuckle of the transverse colon. There is no ascites. CT/CT abdomen pelvis w con IMPRESSION: DISTENDED FLUID CONTAINING SMALL BOWEL LOOPS RAISING THE POSSIBILITY OF DISTAL PARTIAL SMALL BOWEL OBSTRUCTION. CORRELATION AND FOLLOW-UP ARE RECOMMENDED. NO OBSTRUCTIVE UROPATHY. PARAUMBILICAL AND UMBILICAL HERNIAS, DESCRIBED. Impression dictated by: Hazel Hilliard M.D. 08/30/2024 9:57 AM Dictation Location: [place] [address] Electronically authenticated by: [id number] Y Date: 08/30/2024 09:57
[2024-08-30] MEDS: 0.9 % SODIUM CHLORIDE 1,000 ML 125 ML IV (08:59)
[2024-08-30] MEDS: MORPHINE SULFATE 4 MG/ML VIAL IV ×2 (08:59→11:22)
[2024-08-30] MEDS: ONDANSETRON PF 4 MG/2 ML VIAL IV ×2 (08:59→10:06)
[2024-08-30 09:04] LABS: Bacteria Urine TRACE #/HPF (NONE SEEN)
[2024-08-30 09:06] LABS: Alanine Aminotransferase 27 U/L (14-59); Albumin Globulin Ratio 0.9; Alkaline Phosphatase 84 U/L (46-116); Aspartate Amino Transferase 35 U/L (15-37); BUN Creatinine Ratio 31.7; Bilirubin Direct 0.1 mg/dL (0.0-0.2); Bilirubin Total 0.5 mg/dL (0.2-1.0); Calcium 10.3 mg/dL (8.5-10.1); Carbon Dioxide 32.7 mmol/L (21.0-32.0); Chloride 99 mmol/L (98-107); Estimated GFR (African America >60 (>=60 mL/min/1.73m^2); Estimated GFR (Non-African Ame >60 (>=60 mL/min/1.73m^2); Globulin 4.5 g/dL; Glucose 109 mg/dL (74-106); Potassium 4.7 mmol/L (3.5-5.1); Sodium 140 mmol/L (136-145); Total Protein 8.5 g/dL (6.4-8.2)
[2024-08-30 09:07] LABS: Amylase 86 U/L (25-115)
[2024-08-30 09:07] LABS: Cast Seen? NONE SEEN #/LPF (NONE SEEN); Crystals Seen? None Seen #/HPF (None Seen); Mucus Urine TRACE (NONE SEEN); Squamous Epithelial Cell Urine FEW #/LPF (NONE/RARE); Transitional Epi Cells Urine RARE #/LPF (NONE SEEN); Urine Culture Indicated YES-FRMC
== END 2024-08-30 14:07 | disposition short-term general hospital (02) ==
PROVIDERS: Emergency Provider Emergency Medicine; PCP Family Medicine
DX: K56.600 Partial intestinal obstruction, unspecified as to cause (principal); Z90.49 Acquired absence of other specified parts of digestive tract; Z90.710 Acquired absence of both cervix and uterus
CPT/HCPCS: 36415; 74177; 80048; 80076; 81001; 82150; 83690; 85025; 87086; 93005; 96361; 96374; 96375; 96376; 99285; J2270; J2405; Q9967

== ENCOUNTER 2024-10-05 10:19 | Outpatient (OUT) | payer MEDICARE, SELFPAY ==
--- OUTSIDE RECORDS SUMMARY | 2024-05-04 09:45 | XMS_ITS | Continuity of Care Document ---
Author [facility] Address [address] [place] [address] Phone Care Team Providers Care Manager Federal Name Role Phone Trudy Mckenzie CNP Unavailable Unavailable Procedures Procedure Date OFFICE/OUTPATIENT VISIT, EST OFFICE/OUTPATIENT VISIT, EST POSTOP FOLLOW-UP VISIT POSTOP FOLLOW-UP VISIT LAP SLEEVE GASTRECTOMY Sleeve Gastrectomy OFFICE/OUTPATIENT VISIT, EST PSYCL TST EVAL PHYS/QHP PSYCL/NRPSYC TST PHY/QHP PSYCL/NRPSYC TST PHY/QHP EA OFFICE/OUTPATIENT VISIT, [facility] Advance Directives Directive Yes / No Effective Date File Name No Information Encounters Encounter Description Practice Location Reason(s) For Visit Diagnoses Date Provider Providers Copied on Encounter OFFICE/OUTPATI ENT VISIT, EST [facility] [employer] [facility], [address], [place], [place], [id number], [place] tel:[phone] [facility] No Information Magaly Yates. [address], [place], [place], [id number], [place]. tel:[phone] Referring Provider: Trudy Mckenzie, [address], [place], [address]. tel:[phone] OFFICE/OUTPATI ENT VISIT, EST [facility], [address], [place], [place], [id number], [place] tel:[phone] [facility] No Information Magaly Yates. [address], [place], [place], [id number], [place]. tel:[phone] Referring Provider: Trudy Mckenzie, [address], [place], [address]. tel:[phone] [facility], [address] [place] [address] [address], [place], [id number], [place] tel:[phone] [facility] No Information Magaly Yates. [address], [place], [id number], [place]. tel:[phone] Referring Provider: Trudy Mckenzie, [address] [place] [address] [address], [place], [address]. tel:[phone] [facility], [address] [place] [address] [address], [place], [id number], [place] tel:[phone] [facility] No Information Magaly Yates. [address], [place], [id number], [place]. tel:[phone] Referring Provider: Trudy Mckenzie, [address], [place], [address]. tel:[phone] [facility], [address] [place] [address] [address], [place], [place], [id number], [place] tel:[phone] [facility] No Information Chas Sanchez. [address] [place] [address] [address], [place], [id number], [place]. tel:[phone] Referring Provider: Daniel Schaffer, [address], [place], [address]. tel:[phone], [address] [place] [address] [address], [place], [place], [id number], [place] tel:[phone] [facility] No Information Magaly Trudy. [address] [place] [address] [address], [place], [place], [id number], [place]. tel:[phone] Referring Provider: Trudy Mckenzie, [address] [place] [address] [address], [place], [address]. tel:[phone] OFFICE/OUTPATI ENT VISIT, [facility], [address] [place] [address] [address], [place], [place], [id number], [place] tel:[phone] [facility] No Information Chas Sanchez. [address] [place] [address] [address], [place], [place], [id number], [place]. tel:[phone] Referring Provider: Daniel Schaffer, [address] [place] [address] [address], [place], [address]. tel:[phone] [facility] [employer] [facility], [address] [place] [address] [address], [place], [place], [id number], [place] tel:[phone] [facility] No Information Alfie Valentin. [address] [place] [address] [address], [place], [place], [id number], [place]. tel:[phone] Referring Provider: Barbie Judge, [address] [place] [address] [address], [place], [address]. tel:[phone] OFFICE/OUTPATI ENT VISIT, [facility], [address] [place] [address] [address], [place], [place], [id number], [place] tel:[phone] [facility] No Information Chas Sanchez. [address] [place] [address] [address], [place], [place], [id number], [place]. tel:[phone] Referring Provider: Daniel Schaffer, [address] [place] [address] [address], [place], [address]. tel:[phone] Family History Family Member Type Diagnosis Age At Onset No Information Payers Payer name Insurance type Covered democrat ID Authorumanga salima(s) [employer] Medicare Primary [place] [id number] Social History Type Description Quantity Date Captured Comments Sex Female Smoking Status No Information Chief Complaint And Reason For Visit No Information Reason For Referral Reason For Referral No Information Plan Of Treatment Date Type Action Status Appointment Ya [place] BOOKED History Of Present Illness Encounter Date Complaint History Of Prese nt Illness No Information Functional Status Date Functional Assessmen t No Information Instructions Date Instruction Additional Infor mation No Information Assessments Type Assessment Date No Information Patient Care Teams Name Effective Dates (start - stop) Status Members No Information
--- OUTSIDE RECORDS SUMMARY | 2024-10-02 10:00 | XMS_ITS | Encounter Summary ---
Author Organization [facility] Address [address] [place] [address] Care Team Providers Care Cut And Print Machine Operator Name Role Phone Harlan Ruiz MD Primary Care Provider [phone]- [phone] Reason for Visit * Reason Comments 3rd pow Exp Lap. w/extensive JUSTINE Patient is doing great. Her only complaint is constipation. She is using the stool softener. Encounter Details Date Type Department Care Team (Late st Contact Info) Description 10/02/2024 10:00 AM EDT Office Visit [facility] [address] [phone] iVni Womack MD [address] [address] Status post laparotomy with lysis of adhesions (Primary Dx) Social History Tobacco Use Types Packs/Day Years Used Date Smoking Tobacco: Never Smokeless Tobacco: Never Alcohol Use Standard Drinks/Week Comments Not Currently 0 (1 standard drink = 0.6 oz pur e alcohol) Comments Unknown Sex and Gender Information Value Date Recorded Sex Assigned at Not on file Legal Sex Female 7:37 PM EDT Gender Identity Not on file Sexual Orientation Not on file documented as of this encounter Last Filed Vital Signs Vital Sign Reading Time Taken Comments Blood Pressure - - Pulse - - Temperature - - Respiratory Rate - - Oxygen Saturation - - Inhaled Oxygen Concentration - - Weight 100 kg (221 lb) 10/02/2024 9:54 AM EDT Height 167.6 cm (5' 6 ) 10/02/2024 9:54 AM EDT Body Mass Index 35.67 10/02/2024 9:54 AM EDT documented in this encounter Progress Notes * Vini Chacon MD - 10/02/2024 10:00 AM EDT Images from the original note were not included. The patient is about 1 month status post exploratory laparotomy, lysis of adhesions for bowel obstruction. She is eating. She is moving her bowels. She states she is having bowel movements about every 2 days. Even before the surgery, this was her pattern. She denies abdominal pain or vomiting. She denies blood in his stool. She is taking stool softener. On examination, she is awake alert and in no acute distress. Abdomen is soft, nondistended, nontender. Midline incision is well healed. 1. Status post laparotomy with lysis of adhesions The patient can take MiraLax daily also in addition to a stool softener. She is encouraged to take high-fiber diet and drink plenty of fluids. She is not to lift more than 20 lb for at least 8 weeks from time of the surgery. She will follow up here in about 6 weeks for re-evaluation. Next appointment: 11/13/2024 documented in this encounter Plan of Treatment Upcoming Encounters Date Type Department Care Team (Late st Contact Info) Description 11/13/2024 9:45 AM EDT Office Visit [facility] [address] [place] [phone] Vini Womack MD [address] [place] [phone] documented as of this encounter Visit Diagnoses Diagnosis Status post laparotomy with lysis of adhesions- Primary documented in this encounter Care Teams Cut And Print Machine Operator Relationship Specialty Start Date End Date Harlan Ruiz MD [address] [facility], [facility] [place] [address] PCP - General Family Medicine 09/04/24 documented as of this encounter
--- NOTE | 2024-10-05 | MM_ITS ---
Patient Name: YULI ORANTES MR#: [id number] : 1965 Exam Date: 10/05/2024 Ordering Doctor: DR DENNIS ALMEIDA RADIOLOGY REPORT PROCEDURE: MM TOMOSYNTHESIS SCREENING BI COMPARISON: MG MAMM SCREEN 3D RAFY CAD, 12/12/2021. MG MAMM SCREEN RAFY W CAD, 09/21/2017. MG MAMM SCREEN RAFY W CAD, 09/15/2016. MG MAMM RAFY SCRN W CAD DIG, 12/28/2012. INDICATIONS: screening for malignant neoplasm Calculator Name NCI Breast Cancer Risk Assessment Tool 5 Year Breast Cancer Risk 1.30% Lifetime Breast Cancer Risk 6.60% Personal Breast Cancer No Personal Ovarian Cancer No Treatments None Family Cancers Brother with lung cancer at age 51; Uncle-maternal with lung cancer at age 50. LOCATION: [facility] BREAST COMPOSITION: The breasts are almost entirely fatty. FINDINGS: RIGHT BREAST: No significant suspicious finding. Benign-appearing lymph nodes are noted along the chest wall. LEFT BREAST: No significant suspicious finding. Benign-appearing calcifications are present. DIAGNOSTIC CATEGORY 2--BENIGN FINDING: RECOMMENDATIONS: ROUTINE MAMMOGRAM AND CLINICAL EVALUATION IN 12 MONTHS. PLEASE NOTE: A NORMAL MAMMOGRAM DOES NOT EXCLUDE THE POSSIBILITY OF BREAST CANCER. A CLINICALLY SUSPICIOUS PALPABLE LUMP SHOULD BE BIOPSIED. Dictated by: Alli Woods MD on 10/05/2024 at 16:38 Approved by: Alli Woods MD on 10/05/2024 at 16:42
--- OUTSIDE RECORDS SUMMARY | 2024-10-05 10:22 | XMS_ITS | Encounter Summary ---
Author Organization [email or web address] [facility] tem Address [id number] [address] [place] [address] Care Team Providers Care Life Guard Name Role Phone Harlan Ruiz DO Primary Care Provider + [phone] Encounter Details Date Type Department Care Team ([facility] Contact Info) Description 01/06/2023 [facility] [address] [place] [phone] External, Scanning Provider Social History Tobacco Use Types Packs/Day Years Used Date Smoking Tobacco: Never Smokeless Tobacco: Never Alcohol Use Standard Drinks/Week Comments Never 0 (1 standard drink = 0.6 oz pur e alcohol) AUDIT-C Answer Date Recorded Q1: How often do you have a drink containing alc ohol? Never 01/11/2020 Average Number of Drinks Not on file 020 Frequency of Binge Drinking Not on file 07/2019 PHQ-2 Answer Date Recorded Total Score 0 12/10/2022 Childcare Answer Date Recorded Childcare Unknown 01/11/2020 Employment Answer Date Recorded Employment Unknown 01/11/2020 Purpose - Life Answer Date Recorded Purpose and direction in life Unknown Comments No Sex and Gender Information Value Date Recorded Sex Assigned at Not on file Legal Sex Female 11:28 AM EDT Gender Identity Not on file Sexual Orientation Not on file documented as of this encounter Plan of Treatment Upcoming Encounters Date Type Department Care Team ([facility] Contact Info) Description 11/16/2024 2:15 PM EDT Office Visit [facility] Internal Medicine - Family Medicine [address] [place] [phone] Harlan Ruiz DO [address], [facility] [place] [address] documented as of this encounter Visit Diagnoses Not on filedocumented in this encounter Additional Health Concerns Assessment Noted Time PHQ-9 Depression Total Score: 0 12/11/19 23 4:06 PM EDT documented as of this encounter Care Teams Life Guard Relationship Specialty Start Date End Date Harlan Ruiz DO [address], [facility] [place] [address] PCP - General Family Medicine 01/11/20 documented as of this encounter
--- OUTSIDE RECORDS SUMMARY | 2024-10-05 10:22 | XMS_ITS | Encounter Summary ---
Author Organization [facility] tem Address [id number] [address] [place] [address] Care Team Providers Care Warp Trucker Name Role Phone Harlan Ruiz DO Primary Care Provider + [phone] Encounter Details Date Type Department Care Team (Late st Contact Info) Description 10/02/2024 Results Follow-Up [facility] Internal Medicine - Family Medicine [address] [place] [address] Harlan Ruiz DO [address], [place] [address] [facility] Social History Tobacco Use Types Packs/Day Years Used Date Smoking Tobacco: Never Smokeless Tobacco: Never Alcohol Use Standard Drinks/Week Comments Never 0 (1 standard drink = 0.6 oz pur e alcohol) [facility] Utilities Answer Date Recorded In the past 12 months has [employer], gas, oil, or water [employer] threatened to shut off services in your home? No 02/11/2023 Social Connection and Isolat ion Panel [NHANES] Answer Date Recorded In a typical week, how many times do you talk on the phone with family, friends, or neighbors? More than three times a week 02/11/2023 How often do you get togethe r with friends or relatives? Once a week 02/11/2023 How often do you attend chur or latter-day services? More than 4 times per year 02/11/2023 Do you belong to any clubs o r organizations such as uatsdin groups, unions, fraternal or athletic groups, or school groups? No 02/11/2023 How often do you attend meet ings of the clubs or organizations you belong to? Never 02/11/2023 Are you , , di vorced, , never , or living with a partner? 02/11/2023 AUDIT-C Answer Date Recorded Q1: How often do you have a drink containing alc ohol? Never 01/11/2020 Average Number of Drinks Not on file 020 Frequency of Binge Drinking Not on file 07/2019 Overall Financial Resource Strain (CARDIA) Answe r Date Recorded How hard is it for you to pa y for the very basics like food, housing, medical care, and heating? Not hard at all 02/11/2023 PHQ-2 Answer Date Recorded Total Score 4 09/15/2024 [facility] of Occupat ional Health - Occupational Stress Questionnaire Answer Date Recorded Do you feel stress - tense, restless, nervous, or anxious, or unable to sleep at night because your mind is troubled all the time - these days? Rather much 02/11/2023 Exercise Vital Sign Answer Date Recorde d On average, how many days pe r week do you engage in moderate to strenuous exercise (like a brisk walk)? 0 days 02/11/2023 On average, how many minutes do you engage in exercise at this level? 0 min 02/11/2023 PRAPARE - Transportation Answer Date Re corded In the past 12 months, has l ack of transportation kept you from medical appointments or from getting medications? No 09/2022 In the past 12 months, has l ack of transportation kept you from meetings, work, or from getting things needed for daily living? No 02/11/2023 Housing Instability Answer Date Recorde d Are you worried or concerned that in the next two months you may not have stable housing that you own, rent or stay in as a part of a household? No 02/11/2023 Childcare Answer Date Recorded Do problems getting child ca re make it difficult for you to work or study? No 02/11/2023 Employment Answer Date Recorded Do you need help finding a [facility] and/or a training program? No 02/11/2023 Hunger Screening Answer Date Recorded Within the past 12 months we worried whether our food would run out before we got money to buy more. Never True 09/15/2024 Within the past 12 months th e food we bought just didn't last and we didn't have money to get more. Never True 09/15/2024 Purpose - Life Answer Date Recorded I have a purpose and direction in my life. Agree 02/11/2023 Comments No Sex and Gender Information Value Date Recorded Sex Assigned at Not on file Legal Sex Female 11:28 AM EDT Gender Identity Not on file Sexual Orientation Not on file documented as of this encounter Plan of Treatment Upcoming Encounters Date Type Department Care Team (Late st Contact Info) Description 11/16/2024 2:15 PM EDT Office Visit [facility] - Family Medicine [address] [place] [address] Harlan Ruiz DO [address], [place] [address] documented as of this encounter Visit Diagnoses Not on filedocumented in this encounter Additional Health Concerns Assessment Noted Time PHQ-9 Depression Total Score: 4 09/16/19 25 8:49 AM EDT A Body Mass Index follow-up plan has been documented for the patient 09/15/2024 9:43 AM EDT documented as of this encounter Care Teams Warp Trucker Relationship Specialty Start Date End Date Harlan Ruiz DO [address] [facility] [place] [address] PCP - General Family Medicine 01/11/20 documented as of this encounter
--- OUTSIDE RECORDS SUMMARY | 2024-10-05 10:22 | XMS_ITS | Encounter Summary ---
Author Organization [employer] tem Address [id number] [address] [place] [address] Care Team Providers Care Commercial Production Editor Name Role Phone Harlan Ruiz Primary Care Provider + [phone] Encounter Details Date Type Department Care Team ([facility] Contact Info) Description 12/10/2022 Orders Only [facility] Internal Medicine - Family Medicine [address] [place] [address] Demetrice Quinones CMA Dyspnea on exertion Social History Tobacco Use Types Packs/Day Years [...] Purpose and direction in life Unknown Comments Unknown Sex and Gender Information Value Date Recorded Sex Assigned at Not on file Legal Sex Female 11:28 AM EDT Gender Identity Not on file Sexual Orientation Not on file documented as of this encounter Plan of Treatment Upcoming Encounters Date Type Department Care Team ([facility] Contact Info) Description 11/16/2024 2:15 PM EDT [facility] [address] [place] [address] Harlan Ruiz DO [address], [place] [address] documented as of this encounter Procedures Procedure Name Priority Date/Time Associated Diagnosis Comments ECHO COMPLETE WO CONTRAST Routine 12/10/2022 4:49 PM EDT Dyspnea on exertion documented in this encounter Results * Echo complete W/O contrast (12/10/2022 4:49 PM EDT) Anatomical Region Laterality Modality Chest N/A Ultrasound us Celina Agudelo Collinterrell CASCARA BARK CUTTER-PODIATRIC MEDICINE PROFESSOR CV ECHO ORDERABLES Final Re sult documented in this encounter Visit Diagnoses Diagnosis Dyspnea on exertion Other dyspnea and respiratory abnormality documented in this encounter Additional Health Concerns Assessment Noted Time PHQ-9 Depression Total Score: 0 12/11/19 23 4:06 PM EDT documented as of this encounter Care Teams Commercial Production Editor Relationship Specialty Start Date End Date Harlan Ruiz DO [address] [place] [address] PCP - General Family Medicine 01/11/20 documented as of this encounter
--- OUTSIDE RECORDS SUMMARY | 2024-10-05 10:22 | XMS_ITS | Encounter Summary ---
Author Organization [facility] Address [id number] [address] [place] [address] Care Team Providers Care Dumping Machine Operator Name Role Phone Harlan Ruiz DO Primary Care Provider + [phone] Encounter Details Date Type Department Care Team (Late st Contact Info) Description 02/11/2023 Orders Only [facility] Internal Medicine - Family Medicine [address] [place] [address] Harlan Ruiz DO [address], [facility] [place] [address] Social History Tobacco Use Types Packs/Day Years Used Date Smoking Tobacco: Never Smokeless Tobacco: Never Alcohol Use Standard Drinks/Week Comments Never 0 (1 standard drink = 0.6 oz pur e alcohol) [facility] Utilities Answer Date Recorded In the past 12 months has [facility] [employer], gas, oil, or water [employer] threatened to shut off services in your [...] 02/11/2023 How often do you attend chur ch or islam services? More than 4 times per year 02/11/2023 Do you belong to any clubs o r organizations such as buddhism groups, unions, fraternal or athletic groups, or [...] 02/11/2023 PHQ-2 Answer Date Recorded Total Score 12 02/11/2023 [facility] of Occupat ional Health - Occupational Stress [...] Recorded Do you need help finding a l ocal career center and/or a training program? No 02/11/2023 Hunger Screening Answer Date Recorded Within the past 12 months we worried whether our food would run out before we got money to buy more. Never True 02/02/2023 Within the past 12 months th e food we bought just didn't last and we didn't have money to get more. Never True 02/02/2023 Purpose - Life Answer Date Recorded I [...] Medicine - Family Medicine [address] [place] [address] Harlan Ruiz DO [address] [facility] [place] [address] documented as of this encounter Procedures Procedure Name Priority Date/Time Associated Diagnosis Comments FL UGI W AIR CONTRAST WO KUB Routine 01/01/2023 3:47 PM EDT documented in this encounter Results * Fluoroscopy upper GI with air contrast without KUB (01/01/2023 3:47 PM EDT) Anatomical Region Laterality Modality Abdomen, Body Radiographic Bisi ging Harlan Ruiz DO IMG FLUOROSCOPY ORDERABLES F inal Result documented in this encounter Visit Diagnoses Not on filedocumented in this encounter Additional Health Concerns Assessment Noted Time PHQ-9 Depression Total Score: 12 023 2:00 PM EST documented as of this encounter Care Teams Dumping Machine Operator Relationship Specialty Start Date End Date Harlan Ruiz DO [address] [place] [place] [address] PCP - General Family Medicine 01/11/20 documented as of this encounter
--- OUTSIDE RECORDS SUMMARY | 2024-10-05 10:22 | XMS_ITS | Encounter Summary ---
Author Organization [facility] Address [id number] [address] [place] [address] Care Team Providers Care Core Mounter Name Role Phone Harlan Ruiz DO Primary Care Provider + [phone] Encounter Details Date Type Department Care Team (Late st Contact Info) Description 04/02/2023 Orders Only [facility] Internal Medicine - Family Medicine [address] [place] [address] Harlan Ruiz DO [address], [facility] [place] [address] Social History Tobacco Use Types Packs/Day Years Used Date Smoking Tobacco: Never Smokeless Tobacco: Never Alcohol Use Standard Drinks/Week Comments Never 0 (1 standard drink = 0.6 oz pur e alcohol) [facility] Utilities Answer Date Recorded In the past 12 months has [facility] [employer], gas, oil, or water [employer] threatened to shut off services in your [...] often do you attend chur ch or episcopal services? More than 4 times per year 02/11/2023 Do you belong to any clubs o r organizations such as episcopalian groups, unions, fraternal or athletic groups, or [...] 02/11/2023 PHQ-2 Answer Date Recorded Total Score 0 03/24/2023 [facility] of Occupat ional Health - Occupational [...] got money to buy more. Never True 03/24/2023 Within the past 12 months th e food we bought just didn't last and we didn't have money to get more. Never True 03/24/2023 Purpose - Life Answer Date Recorded I [...] Medicine - Family Medicine [address] [place] [address] Harlan Ruiz DO [address], [place] [address] documented as of this encounter Procedures Procedure Name Priority Date/Time Associated Diagnosis Comments MULTIPLE LABS Routine 03/31/2023 8:02 AM EST documented in this encounter Results * Multiple labs (03/31/2023 8:02 AM EST) us Scanning Provider External [facility] Final Result MANUALLY TRANSCRIBED RESULTS documented in this encounter Visit Diagnoses Not on filedocumented in this encounter Additional Health Concerns Assessment Noted Time PHQ-9 Depression Total Score: 0 03/24/19 24 8:53 AM EST documented as of this encounter Care Teams Core Mounter Relationship Specialty Start Date End Date Harlan Ruiz DO [address], [place] [address] PCP - General Family Medicine 01/11/20 documented as of this encounter
--- OUTSIDE RECORDS SUMMARY | 2024-10-05 10:22 | XMS_ITS | Encounter Summary ---
Author Organization [facility] [employer] Address [id number] [address] [place] [address] Care Team Providers Care Family Law Mediator Name Role Phone Harlan Ruiz DO Primary Care Provider + [phone] Reason for Visit * Reason Onset Date Comments Med Refill 06/02/2022 Encounter Details Date Type Department Care Team (Late st Contact Info) Description [facility]/02[facility] [address] [place] [address] Harlan Ruiz DO [address], [place] [address] Social History Tobacco Use Types Packs/Day Years [...] PHQ-2 Answer Date Recorded Total Score 0 04/24/2022 Childcare Answer Date Recorded Childcare Unknown 01/11/2020 Employment Answer Date Recorded Employment Unknown 01/11/2020 Purpose - Life Answer Date Recorded Purpose and direction in life Unknown Comments Unknown Sex and Gender Information Value Date Recorded Sex Assigned at Not on file Legal Sex Female 11:28 AM EDT Gender Identity Not on file Sexual Orientation Not on file documented as of this encounter Miscellaneous Notes * Telephone Encounter - Elham Dunne - 06/02/2022 1:00 PM EDT Pharmacy wants it for a 100 days documented in this encounter Plan of Treatment Upcoming Encounters Date Type Department Care Team (Late st Contact Info) Description 11/16/2024 2:15 PM EDT Office Visit [facility] Internal Medicine - Family Medicine [address] [place] [address] Harlan Ruiz DO [address], [facility] [place] [address] documented as of this encounter Visit Diagnoses Not on filedocumented in this encounter Additional Health Concerns Assessment Noted Time PHQ-9 Depression Total Score: 0 04/24/19 23 10:35 AM EST documented as of this encounter Care Teams Family Law Mediator Relationship Specialty Start Date End Date Harlan Ruiz DO [address] [address] PCP - General Family Medicine 01/11/20 documented as of this encounter
--- OUTSIDE RECORDS SUMMARY | 2024-10-05 10:22 | XMS_ITS | Encounter Summary ---
Author Organization [facility] tem Address [id number] [address] [place] [address] Care Team Providers Care Drag Out Worker Name Role Phone Harlan Ruiz DO Primary Care Provider + [phone] Reason for Referral * Gastroenterology (Routine) - Pending Review Specialty Diagnoses / Procedures Referred By Contcody t Referred To Contact Diagnoses Abnormal stool test Procedures Colonoscopy Harlan Ruiz DO [address], [facility] [place] [address] Phone: tel: fax: Referral ID Status Reason Start Date Expiration Date V isits Requested Visits Authorized [id number] Pending Review 10/04/2024 10/04/2025 1 1 Encounter Details Date Type Department Care Team (Late st Contact Info) Description 10/04/2024 Orders Only [facility] - Family Medicine [address] [place] [address] Harlan Ruiz DO [address], [facility] [place], [place] [id number] Abnormal stool test (Primary Dx) Social History Tobacco Use Types Packs/Day Years Used Date Smoking Tobacco: Never Smokeless Tobacco: Never Alcohol Use Standard Drinks/Week Comments Never 0 (1 standard drink = 0.6 oz pur e alcohol) [facility] Utilities Answer Date Recorded In the past 12 months has [facility] [employer], [employer], or [employer] threatened to shut off services in your [...] often do you attend chur ch or muslim services? More than 4 times per year 02/11/2023 Do you belong to any clubs o r organizations such as roman catholic groups, unions, fraternal or athletic groups, or [...] Answer Date Recorded Total Score 4 09/15/2024 [facility] - Occupational Stress [...] Recorded Do you need help finding a [facility] center and/or a training program? No 02/11/2023 [...] - Family Medicine [address] [place] [address] Harlan Ruiz DO [address], [facility] [place] [address] Scheduled Orders Name Type Priority Associated Diagnoses Orde r Schedule Colonoscopy GI Routine Abnormal stool test 1 Occurrences starting 10/04/2024 until 10/04/2025 documented as of this encounter Visit Diagnoses Diagnosis Abnormal stool test- Primary documented in this encounter Additional Health Concerns Assessment Noted Time PHQ-9 Depression Total Score: 4 09/16/19 25 8:49 AM EDT A Body Mass Index follow-up plan has been documented for the patient 09/15/2024 9:43 AM EDT documented as of this encounter Care Teams Drag Out Worker Relationship Specialty Start Date End Date Harlan Ruiz DO [address], [place] [address] PCP - General Family Medicine 01/11/20 documented as of this encounter
--- OUTSIDE RECORDS SUMMARY | 2024-10-05 10:22 | XMS_ITS | Encounter Summary ---
Author Organization [employer] tem Address [facility] [id number] [address] [place] [address] Care Team Providers Care Tobacco Stemmer Name Role Phone Harlan Ruiz DO Primary Care Provider + [phone] Reason for Visit * Reason Comments Med Refill Encounter Details Date Type Department Care Team (Late Contact Info) Description 03/04/2022 Refill [facility] - Family Medicine [address] [place] [phone] Celina Self, EXTRAS CASTING DIRECTOR-JIG BUILDER [address] [facility] [place] [address] Social History Tobacco Use Types Packs/Day Years [...] of Binge Drinking Not on file 07/2019 Childcare Answer Date Recorded Childcare Unknown 01/11/2020 [...] Upcoming Encounters Date Type Department Care Team ([facility] Contact Info) Description 11/16/2024 2:15 PM EDT Office Visit [facility] - Family Medicine [address] [place] [place] [address] Harlan Ruiz DO [address] [facility] [place] [address] documented as of this encounter Visit Diagnoses Not on filedocumented in this encounter Care Teams Tobacco Stemmer Relationship Specialty Start Date End Date Harlan Ruiz DO [address] [facility] [place] [address] PCP - General Family Medicine 01/11/20 documented as of this encounter
--- OUTSIDE RECORDS SUMMARY | 2024-10-05 10:22 | XMS_ITS | Encounter Summary ---
Author [facility] Address [id number] [address] [place] [address] Care Team Providers Care Operator Receptionist Name Role Phone JenniferHarlan angel Primary Care Provider + [phone] Reason for Visit * Reason Onset Date Comments Med Refill 05/28/2023 Encounter Details Date Type Department Care Team (Late st Contact Info) Description 05/28/2023 Refill [facility] - Family Medicine [address] [place] [address] Saundra Sorto, JUANCHO Social History Tobacco Use Types Packs/Day Years Used Date Smoking Tobacco: Never Smokeless Tobacco: Never Alcohol Use Standard Drinks/Week Comments Never 0 (1 standard drink = 0.6 oz pur e alcohol) [facility] Utilities Answer Date Recorded In the past 12 months has e electric, gas, oil, or water [place] threatened to shut off services in your [...] often do you attend chur ch or scientologist services? More than 4 times per year 02/11/2023 Do you belong to any clubs o r organizations such as denominational groups, unions, fraternal or athletic groups, or [...] PHQ-2 Answer Date Recorded Total Score 0 05/18/2023 [facility] Occupat ional Health - Occupational [...] Recorded Do you need help finding a [facility] and/or a training program? No 02/11/2023 Hunger Screening Answer Date Recorded Within the past 12 months we worried whether our food would run out before we got money to buy more. Never True 05/18/2023 Within the past 12 months th e food we bought just didn't last and we didn't have money to get more. Never True 05/18/2023 Purpose - Life Answer Date Recorded I have a purpose and direction in my life. Agree 02/11/2023 Comments No Sex and Gender Information Value Date Recorded Sex Assigned at Not on file Legal Sex Female 11:28 AM EDT Gender Identity Not on file Sexual Orientation Not on file documented as of this encounter Miscellaneous Notes * Telephone Encounter - Demetrice Quinones CMA - 05/28/2023 11:14 AM EDT Spoke with the pharmacy and they are going to take this off of automatic refill documented in this encounter Plan of Treatment Upcoming Encounters Date Type Department Care Team (Late st Contact Info) Description 11/16/2024 2:15 PM EDT Office Visit [facility] - Family Medicine [address] [place] [address] Harlan Ruiz DO [address] [employer], [facility] [place] [address] documented as of this encounter Visit Diagnoses Not on filedocumented in this encounter Additional Health Concerns Assessment Noted Time PHQ-9 Depression Total Score: 0 05/18/19 24 1:09 PM EDT A Body Mass Index follow-up plan has been documented for the patient 05/18/2023 2:15 PM EDT documented as of this encounter Care Teams Operator Receptionist Relationship Specialty Start Date End Date Harlan Ruiz DO [address] [employer], [facility] [place] [address] PCP - General Family Medicine 01/11/20 documented as of this encounter
--- OUTSIDE RECORDS SUMMARY | 2024-10-05 10:22 | XMS_ITS | Encounter Summary ---
Author Organization [facility] tem Address [id number] [address] [place] [address] Care Team Providers Care Commercial Illustrator Name Role Phone Harlan Ruiz DO Primary Care Provider + [phone] Reason for Visit * Reason Comments Med Refill Encounter Details Date Type Department Care Team ([facility] Contact Info) Description 06/18/2022 Refill [facility] - Family Medicine [address] [place] [phone] Celina Self, MONEY COUNTER-MACHINE BOOKKEEPER [address] [facility] [place] [address] Mixed hyperlipidemia Social History Tobacco Use Types Packs/Day Years [...] Medicine - Family Medicine [address] [place] [address] Harlan Ruiz DO [address] [facility] [place] [place] [address] documented as of this encounter Visit Diagnoses Diagnosis Mixed hyperlipidemia documented in this encounter Additional Health Concerns Assessment Noted Time PHQ-9 Depression Total Score: 0 04/24/19 23 10:35 AM EST documented as of this encounter Care Teams Commercial Illustrator Relationship Specialty Start Date End Date Harlan Ruiz DO [address] [facility] [place] [place] [address] PCP - General Family Medicine 01/11/20 documented as of this encounter
--- OUTSIDE RECORDS SUMMARY | 2024-10-05 10:22 | XMS_ITS | Encounter Summary ---
Author Organization [facility] tem Address [facility] [id number] [address] [place] [address] Care Team Providers Care Field Services Director Name Role Phone Harlan Ruiz DO Primary Care Provider + [phone] Encounter Details Date Type Department Care Team ([facility] Contact Info) Description 01/07/2023 [facility] [address] [place] [address] External, Scanning Provider Social History Tobacco Use [...] Upcoming Encounters Date Type Department Care Team ([facility] Contact Info) Description 11/16/2024 2:15 PM EDT Office Visit [facility] - Family Medicine [address] [place] [address] Harlan Ruiz DO [address], [facility] [place] [address] documented as of this encounter Visit Diagnoses Not on filedocumented in this encounter Additional Health Concerns Assessment Noted Time PHQ-9 Depression Total Score: 0 12/11/19 23 4:06 PM EDT documented as of this encounter Care Teams Field Services Director Relationship Specialty Start Date End Date Harlan Ruiz DO [address], [facility] [place] [address] PCP - General Family Medicine 01/11/20 documented as of this encounter
--- OUTSIDE RECORDS SUMMARY | 2024-10-05 10:22 | XMS_ITS | Encounter Summary ---
Author Organization [facility] Address [id number] [address] [place] [address] Care Team Providers Care Beef Trimmer Name Role Phone Harlan Ruiz DO Primary Care Provider + [phone] Encounter Details Date Type Department Care Team (Late st Contact Info) Description 06/30/2022 [facility] [address] [place] [phone] Celina Self, INBOUND INGREDIENT LOGISTICS SPECIALIST-GLOBE CLEANER [address] [facility] [address] [facility] [place] [address] Social History Tobacco Use Types Packs/Day Years [...] encounter Miscellaneous Notes * Telephone Encounter - Chayo Sarmiento - 06/30/2022 11:19 AM EDT Pt would like lab orders sent to [facility] for her to have labs prior to her DM appt. Thank You documented in this encounter Plan of Treatment Upcoming Encounters Date Type Department Care Team (Late st Contact Info) Description 11/16/2024 2:15 PM EDT Office Visit [facility] - Family Medicine [address] [place] [address] Harlan Ruiz DO [address], [facility] [place] [address] documented as of this encounter Visit Diagnoses Not on filedocumented in this encounter Additional Health Concerns Assessment Noted Time PHQ-9 Depression Total Score: 0 04/24/19 23 10:35 AM EST documented as of this encounter Care Teams Beef Trimmer Relationship Specialty Start Date End Date Harlan Ruiz DO [address], [facility] [place] [address] PCP - General Family Medicine 01/11/20 documented as of this encounter
--- OUTSIDE RECORDS SUMMARY | 2024-10-05 10:22 | XMS_ITS | Encounter Summary ---
Author Organization [employer] tem Address [facility] [place]-[id number] [address] [place] [address] Care Team Providers Care Hard Metals Hand Engraver Name Role Phone Harlan Ruiz DO Primary Care Provider + [phone] Encounter Details Date Type Department Care Team ([facility] Contact Info) Description 07/28/2022 Orders Only [facility] - Family Medicine [address] [place] [address] Cele Quinn, JUANCHO Type 2 diabetes mellitus without complication, without long-term current use of insulin ([facility]); Mixed hyperlipidemia Social History Tobacco Use Types [...] PHQ-2 Answer Date Recorded Total Score 0 07/31/2022 Childcare Answer Date Recorded Childcare Unknown 01/11/2020 [...] Upcoming Encounters Date Type Department Care Team ([facility] Contact Info) Description 11/16/2024 2:15 PM EDT Office Visit [facility] - Family Medicine [address] [place] [address] Harlan Ruiz, DO [address], [place] [address] documented as of this encounter Procedures Procedure Name Priority Date/Time Associated Diagnosis Comments MICROALBUMIN / CREATININE URINE RATIO Routine 07/27/2022 Type 2 diabetes mellitus without complication, without long-term current use of insulin ([facility]) HEMOGLOBIN A1C Routine 07/27/2022 Type 2 diabetes mellitus without complication, without long-term current use of insulin ([facility]) LIPID PROFILE Routine 07/27/2022 Mixed hyperlipidemia COMPREHENSIVE METABOLIC PANEL Routine 07/27/2022 Type 2 diabetes mellitus without complication, without long-term current use of insulin ([facility]) Mixed hyperlipidemia documented in this encounter Results * (ABNORMAL) Lipid panel (07/27/2022) External Cholesterol 182 0 - 200 MANUALLY TRANSCRIBED RESULTS External Cholesterol:Hdl 3.2(A) 3.3 - 7.1 MANUALLY TRANSCRIBED RESULTS External Hdl Cholesterol 57 40 - 60 MANUALLY TRANSCRIBED RESULTS External Ldl (Calc) 93 0 - 100 MANUALLY TRANSCRIBED RESULTS External Triglycerides 180(A) 0 - 150 MANUALLY TRANSCRIBED RESULTS External Very Low Lipoprotein 32 MANUALLY TRANSCRIBED RESULTS Blood 07/27/2022 us Celina Self IT OPERATIONS MANAGER[facility] LAB BLOOD ORDERABLES Final Result MANUALLY TRANSCRIBED RESULTS * (ABNORMAL) Comprehensive metabolic panel (07/27/2022) External Albumin 3.4 3.4 - 5.0 MAN UALLY TRANSCRIBED RESULTS External Alt Sgpt 21 14 - 59 MANUALLY TRANSCRIBED RESULTS External Anion Gap 11.7 MANUALLY TRANSCRIBED RESULTS External Ast 13(A) 15 - 37 MANUALL Y TRANSCRIBED RESULTS External Blood Urea Nitrogen Bun 11 7 - 18 MANUALLY TRANSCRIBED RESULTS External Calcium Ca 9 8.5 - 10.1 MANUALLY TRANSCRIBED RESULTS External Chloride 102 98 - 107 MANUALLY TRANSCRIBED RESULTS External Co2 / Carbon Dioxide 32.7(A) 21 - 32 MANUALLY TRANSCRIBED RESULTS External Creatinine 0.67 0.55 - 1.02 MANUALLY TRANSCRIBED RESULTS External Gfr Amer >60 >60 MANUALLY TRANSCRIBED RESULTS External Gfr Non Amer >60 >60 MANUALLY TRANSCRIBED RESULTS External Alkaline Phosphatase 77 46 - 116 MANUALLY TRANSCRIBED RESULTS External Glucose Fasting Or Random (Fbs) 110(A) 74 - 108 MANUALLY TRANSCRIBED RESULTS External Potassium K 4.4 3.5 - 5.1 MANUALLY TRANSCRIBED RESULTS External Sodium Na 142 136 - 145 MANUALLY TRANSCRIBED RESULTS Total Bilirubin 0.3 0.2 - 1.0 MANU ALLY TRANSCRIBED RESULTS External Total Protein 7.8 6.4 - 8.2 MANUALLY TRANSCRIBED RESULTS Blood 07/27/2022 Celina Agudelo Aramis [facility] LAB BLOOD ORDERABLES Final Result Performing Organization Address [facility] de Phone Number MANUALLY TRANSCRIBED RESULTS * Microalbumin - Albumin: Creatinine Urine Ratio (07/27/2022) External Microalbumin, Urine 2.2 MANUALLY TRANSCRIBED RESULTS External Urine Creat 144.55 20 - 300 MANUALLY TRANSCRIBED RESULTS External Alb/Creat Ratio 15.2 0 - 29.9 MANUALLY TRANSCRIBED RESULTS Urine specimen collection, clean catch / Unknown 07/27/2022 Celina Agudelo Aramis [facility] URINE ORDERABLES Final Resu lt Performing Organization Address [facility] Co de Phone Number MANUALLY TRANSCRIBED RESULTS * Hemoglobin A1c (07/27/2022) External Hemoglobin A1C 5.9 4.5 - 6.2 % MANUALLY TRANSCRIBED RESULTS Blood 07/27/2022 Celina Jammie Self [facility] LAB BLOOD ORDERABLES Final Result Performing Organization Address [facility]/State/ZIP Co de Phone Number MANUALLY TRANSCRIBED RESULTS documented in this encounter Visit Diagnoses Diagnosis Type 2 diabetes mellitus without complication, without long-term current use of insulin ([facility]) Mixed hyperlipidemia documented in this encounter Additional Health Concerns Assessment Noted Time PHQ-9 Depression Total Score: 0 04/24/19 23 10:35 AM EST documented as of this encounter Care Teams Hard Metals Hand Engraver Relationship Specialty Start Date End Date Harlan Ruiz DO [address] COUNTS INCLUDE [address] [facility], [place] [address] PCP - General Family Medicine 01/11/20 documented as of this encounter
--- OUTSIDE RECORDS SUMMARY | 2024-10-05 10:22 | XMS_ITS | Encounter Summary ---
Author Organization [facility] Address [address] [place] [address] Care Team Providers Care Vamp Presser Name Role Phone Harlan Ruiz MD Primary Care Provider Encounter Details Date Type Department Care Team (Latest Contact Info) Description 10/02/2024 Travel Social History Tobacco Use Types Packs/Day Years [...] AM EDT Office Visit [facility] [address] [phone] Vini Womack MD [address] [address] documented as of this encounter Visit Diagnoses Not on filedocumented in this encounter Care Teams Vamp Presser Relationship Specialty Start Date End Date Harlan Ruiz MD [address] [facility] [place] [address] PCP - General Family Medicine 09/04/24 documented as of this encounter
--- OUTSIDE RECORDS SUMMARY | 2024-10-05 10:22 | XMS_ITS | Encounter Summary ---
Author Organization [facility] Address [id number]-[id number] [address] [place] [address] Care Team Providers Care Pinking Machine Operator Name Role Phone Harlan Ruiz DO Primary Care Provider + [phone] Encounter Details Date Type Department Care Team (Late st Contact Info) Description 01/19/2022 Telephone [facility] - Family Medicine [address] [place] [phone] Nicky Cartagena MA Social History Tobacco Use Types Packs/Day Years [...] on file Sexual Orientation Not on file COVID-19 Exposure Response Date Recorded In the last month, have you been in contact with someone who was confirmed or suspected to have Coronavirus / COVID-19? No / Unsure 01/09/2022 10:12 AM EDT documented as of this encounter Miscellaneous Notes * Telephone Encounter - Nicky Cart[place]a MA - 01/19/2022 5:17 PM EST Patient called and said she is out of the meds you gave her for her ear and she is still having thesame problems. She said there have been no changes. * Telephone Encounter - FISH Rowe - 01/19/2022 5:17 PM EST I'll try changing the nasal spray and see if that helps, make sure she isn't blowing her nose * Telephone Encounter - Nicky Cart[place]a MA - 01/19/2022 5:17 PM EST Patient notified and understands. documented in this encounter Plan of Treatment Upcoming Encounters Date Type Department Care Team (Late st Contact Info) Description 11/16/2024 2:15 PM EDT Office Visit [facility] - Family Medicine [address] [place] [address] Harlan Ruiz DO [address] [facility] [place] [address] documented as of this encounter Visit Diagnoses Not on filedocumented in this encounter Care Teams Pinking Machine Operator Relationship Specialty Start Date End Date Harlan Riuz DO [address] [facility] [place] [address] PCP - General Family Medicine 01/11/20 documented as of this encounter
--- OUTSIDE RECORDS SUMMARY | 2024-10-05 10:22 | XMS_ITS | Encounter Summary ---
Author Organization [facility] tem Address [facility][id number] [address] [place] [address] Care Team Providers Care Sugar Mill Worker Name Role Phone Harlan Ruiz DO Primary Care Provider + [phone] Encounter Details Date Type Department Care Team ([facility] Contact Info) Description 12/17/2021 Orders Only [facility] - Family Medicine [address] [place] [address] Demetrice Quinones CMA Chronic fatigue Social History Tobacco Use Types Packs/Day Years [...] have Coronavirus / COVID-19? No / Unsure 12/03/2021 1:21 PM EDT documented as of this encounter Plan of Treatment Upcoming Encounters Date Type Department Care Team ([facility] Contact Info) Description 11/16/2024 2:15 PM EDT Office Visit [facility] - Family Medicine [address] [place] [address] Harlan Ruiz DO [address] [place] [address] documented as of this encounter Procedures Procedure Name Priority Date/Time Associated Diagnosis Comments THYROID PROFILE INCLUDES TSH FT4 Routine 12/13/19 22 Chronic fatigue documented in this encounter Results * Thyroid profile includes TSH FT4 (12/12/2021) 12/12/2021 Celina Self [facility] LAB BLOOD ORDERABLES Final Result [employer] documented in this encounter Visit Diagnoses Diagnosis Chronic fatigue Other malaise and fatigue documented in this encounter Care Teams Sugar Mill Worker Relationship Specialty Start Date End Date Harlan Ruiz DO [address] [place] [address] PCP - General Family Medicine 01/11/20 documented as of this encounter
--- OUTSIDE RECORDS SUMMARY | 2024-10-05 10:22 | XMS_ITS | Encounter Summary ---
[facility] Organization [facility] Address [id number] [address] [place] [address] Care Team Providers Care Child Neurologist Name Role Phone Harlan Ruiz DO Primary Care Provider + [phone] Encounter Details Date Type Department Care Team (Late st Contact Info) Description 02/06/2022 Telephone [facility] - [facility] Medicine [address] [place] [phone] Nicky Cartagena MA Social History Tobacco Use [...] Telephone Encounter - Nicky Cartagena MA - 02/06/2022 8:04 AM EST Patient called and said her ear is still plugged and wants to know how long it should take to clearup and what else she can do? * Telephone Encounter - Harlan Ruiz DO - 02/06/2022 8:04 AM EST It can take a month or 2. She can try Sudafed. She should still stay on the fluticasone. If it is no better she should see ENT and they sometimes put tubes in people's ears for this * Telephone Encounter - Nicky Cartagena MA - 02/06/2022 8:04 AM EST Patient notified and understands. documented in this encounter Plan of Treatment Upcoming Encounters Date Type Department Care Team (Late st Contact Info) Description 11/16/2024 2:15 PM EDT Office Visit [facility] [address] [place] [address] Harlan Ruiz DO [address] [facility] [place] [address] documented as of this encounter Visit Diagnoses Not on filedocumented in this encounter Care Teams Child Neurologist Relationship Specialty Start Date End Date Harlan Ruiz DO [address] [place] [address] PCP - General Family Medicine 01/11/20 documented as of this encounter
--- OUTSIDE RECORDS SUMMARY | 2024-10-05 10:22 | XMS_ITS | Encounter Summary ---
Author Organization [facility] Address [address] [place] [address] Care Team Providers Care Museum Exhibit Technician Name Role Phone Harlan Ruiz MD Primary Care Provider Encounter Details Date Type Department Care Team (Latest Contact Info) Description 09/26/2024 Travel Social History Tobacco Use Types Packs/Day [...] EDT Office Visit [facility] [address] [phone] Vini Womack MD [address] [address] documented as of this encounter Visit Diagnoses Not on filedocumented in this encounter Care Teams Museum Exhibit Technician Relationship Specialty Start Date End Date Harlan Ruiz MD [address] [facility] [place] [address] PCP - General Family Medicine 09/04/24 documented as of this encounter
--- OUTSIDE RECORDS SUMMARY | 2024-10-05 10:22 | XMS_ITS | Clinical Summary ---
Author Organization [employer] tem Address [id number] [address] [place] [address] Care Team Providers Care Checker Cashier Name Role Phone JenniferHarlan angel Primary Care Provider + [phone] Allergies No known active allergies Medications lamotrigine (LAMICTAL ORAL) Take 100 mg by mouth in the morning and 100 mg before bedtime. Active DULoxetine (CYMBALTA) 60 mg capsule Take 2 capsules (120 mg total) by mouth in the morning. Active hydrOXYzine (VISTARIL) 50 mg capsule Active rOPINIRole (REQUIP) 1 mg tablet Take 1 tablet (1 mg total) by mouth in the morning and 1 tablet (1 mg total) before bedtime. 2 Active primidone (MYSOLINE) 50 mg tablet Active busPIRone (BUSPAR) 10 mg tablet 4 Active triamcinolone (KENALOG) 0.5 % cream Apply 1 Application topically 3 (three) times a day. 60 g 1 4 Active buPROPion XL (WELLBUTRIN XL) 150 mg 24 hr tablet Take 1 tablet (150 mg total) by mouth. 5 Active nystatin (MYCOSTATIN) powder APPLY TO THE AFFECTED AREA TWICE DAILY NEEDED FOR PAIN 5 Active tiZANidine (ZANAFLEX) 4 mg tabletIndicati ons:Thoracic myofascial strain, initial encounter Take 1 tablet (4 mg total) by mouth nightly. 30 tablet 4 09/16/19 25 Discontin ued(Thera py completed ) meclizine (ANTIVERT) 25 mg tablet Take 1 tablet (25 mg total) by mouth 3 (three) times a day as needed for dizziness. 30 tablet 4 09/16/19 25 Discontin ued(Thera py completed ) Active Problems Problem Noted Date Diagnosed Date Small bowel obstruction due to adhesions 025 Essential tremor 10/02/2023 Hypersomnia 10/02/2023 Memory loss 10/02/2023 Primary insomnia 10/02/2023 Restless leg syndrome 10/02/2023 Bipolar 1 disorder, mixed, severe 07/06/2023 Bipolar disorder, current episode mixed, mild S/P gastric sleeve procedure 04/19/2023 Anxiety 02/22/2023 Cerebrospinal fluid otorrhea 11/04/2022 Other specified hearing loss, right ear 07/21/19 23 07/31/2022 ETD (Eustachian tube dysfunction), right 023 07/31/2022 Calcaneal spur 04/24/2022 Shoulder pain 04/24/2022 Depressive disorder 12/03/2021 Fatigue 12/03/2021 Gastroesophageal reflux disease 12/03/2021 Gout 12/03/2021 Hyperlipidemia 12/03/2021 Tremor 12/03/2021 Fracture of calcaneus 07/24/2021 Derangement of knee 08/28/2020 Sleep apnea 2020 Suicidal ideations 01/12/2020 Suicidal ideation 01/11/2020 Suicidal thoughts 01/11/2020 Trigeminal neuralgia 09/21/2017 Synovial cyst of knee 11/26/2016 Resolved Problems Problem Noted Date Diagnosed Date Resolved Date Spinal fluid abnorm 07/06/2023 07/06/19 24 Headache 07/06/2023 07/06/2023 Essential hypertension 12/03/202109/15 Type 2 diabetes mellitus 12/03/202101/2025 Morbid obesity 08/15/2018 09/15/2024 Encounters Date Type Department Care Team Description 10/04/2024 Orders Only [facility] - [facility] [address] [place] [address] Harlan Ruiz, Abnormal stool test (Primary Dx) 10/02/2024 Results Follow-Up [facility] [address] [place] [address] Harlan Ruiz, DO Cologuard [facility] 09/15/2024 9:00 AM EDT Office Visit [facility] [address] [place] [address] Harlan Ruiz, DO Small bowel obstruction due to adhesions (CMS-HCC) (Primary Dx); Bipolar disorder, current episode mixed, mild (CMS-HCC); Encounter for screening mammogram for malignant neoplasm of breast; Special screening for malignant neoplasm of colon; Prediabetes; Class 1 obesity due to excess calories with serious comorbidity and body mass index (BMI) of 34.0 to 34.9 in adult 09/15/2024 Travel from Last 3 Months Immunizations Immunization Administration Dates Next Due DTP 04/25/2020 Hepatitis B 07/21/2002,03/03/2002,01/13/2002 Influenza, Injectable, Mdck, Preservative Free, Quad 03/18/2017 Influenza, Injectable, quadr ivalent (PF) 12/11/2022,12/08/2021,12/03/2020,2019,10/08/2018,12/25/2017 Influenza, Unspecified 12/08/2021 Zoster Vaccine Recombinant 02/07/2021,12/03/2020 Family History Medical History Relation Name Comments Lung cancer Brother smoker Brother COPD Father smoker Father Arthritis Mother at age 53 in MVA Heart failure Sister 1 in her 50 's No Known Problems Sister 2 Relation Name Status Comments Brother Father Mother Sister 1 Sister 2 Alive Social History Tobacco Use Types Packs/Day Years Used Date Smoking Tobacco: Never Smokeless Tobacco: Never Tobacco Cessation:Counseling Given: Not Answered Alcohol Use Standard Drinks/Week Comments Never 0 (1 standard drink = 0.6 oz pur e alcohol) [facility] [employer] Answer Date Recorded In the past 12 months has e [employer], gas, oil, or water [employer] threatened to shut off services in your [...] often do you attend chur ch or methodist services? More than 4 times per year [...] Answer Date Recorded Total Score 4 09/15/2024 [facility] - [...] Recorded Do you need help finding a [place] [employer] career center and/or a training program? No [...] on file Sexual Orientation Not on file Last Filed Vital Signs Vital Sign Reading Time Taken Comments Blood Pressure 120/78 09/15/2024 8:53 AM EDT Pulse 82 09/15/2024 8:53 AM EDT Temperature 36.7 C (98.1 F) 09/15/2024 8:53 AM EDT Respiratory Rate 18 09/15/2024 8:53 AM EDT Oxygen Saturation 95% 09/15/2024 8:53 AM EDT Inhaled Oxygen Concentration - - Weight 99.4 kg (219 lb 3.2 oz) 09/15/2024 8:53 A M EDT Height 170.2 cm (5' 7.01 ) 09/15/2024 8:53 AM ED T Body Mass Index 34.32 09/15/2024 8:53 AM EDT Plan of Treatment Upcoming Encounters Date Type Department Care Team (Late st Contact Info) Description 11/16/2024 2:15 PM EDT Office Visit [facility] [address] [place] [phone] Harlan Ruiz, DO [address], [place] [address] Health Maintenance Due Date Last Done Comments Mammogram 12/16/2022 12/16/2021 Influenza Vaccine 11/06/2024 12/11/2022, , 12/08/2021, Additional history exists Colonoscopy 01/18/2025 Postponed from 2009 (Not Indicated) Adult BMI Follow Up Plan 09/15/2025 09/15/2024 Adult BMI Screening 09/15/2025 09/15/2024 Depression Screening 09/15/2025 09/15/2024 Tobacco Screening 09/15/2025 09/15/2024 DTaP,Tdap and Td Vaccines (2 - Tdap) 04/25/2030 04/25/2020 Zoster (Shingles) Vaccine Completed 02/07/2021, Pap Smear Discontinued Medical Devices Not on file Procedures Procedure Name Priority Date/Time Associated Diagnosis Comments COLOGUARD NON-[facility] Routine 09/23/2024 12:30 PM EDT Special screening for malignant neoplasm of colon MAMMOGRAPHY Routine 12/16/2021 from Last 3 Months or Most Recently Relevant to Health Maintenance Results * (ABNORMAL) Cologuard [facility] (09/23/2024 12:30 PM EDT) EXTERNAL COLOGUARD Positive( A) Negative 10/01/2024 6:01 AM EDT [employer] (CLIA #:[id number]) Comment: The Cologuard (TM) test was performed on this specimen. POSITIVE TEST RESULT. A positive Cologuard result should be followed with a colonoscopy or visual examination of the colon. The normal value (reference range) for this assay is negative. TEST DESCRIPTION: Composite algorithmic analysis of stool DNA-biomarkers with hemoglobin immunoassay. Quantitative values of individual biomarkers are not reportable and are not associated with individual biomarker result reference ranges. Cologuard is intended for colorectal cancer screening of adults of either sex, 45 years or older, who are at average-risk for colorectal cancer (CRC). Cologuard has been approved for use by the U.S. FDA. The performance of Cologuard was established in a cross sectional study of average-risk adults aged 50-84. Cologuard performance in patients ages 45 to 49 years was estimated by sub-group analysis of near-age groups. Colonoscopies performed for a positive result may find as the most clinically significant lesion: colorectal cancer [4.0%], advanced adenoma (including sessile serrated polyps greater than or equal to 1cm diameter) [20%] or non- advanced adenoma [31%]; or no colorectal neoplasia [45%]. These estimates are derived from a prospective cross-sectional screening study of 10,000 individuals at average risk for colorectal cancer who were screened with both Cologuard and colonoscopy. (Mena Hay al, N Engl J Med 2014;370(14):3358-6622.) Cologuard may produce a false negative or false positive result (no colorectal cancer or precancerous polyp present at colonoscopy follow up). A negative Cologuard test result does not guarantee the absence of CRC or advanced adenoma (pre-cancer). The current Cologuard screening interval is every 3 years. ([place] Cancer Society and U.S. Multi-Society Task Force). Cologuard performance data in a 10,000 patient pivotal study using colonoscopy as the reference method can be accessed at the following location: www.[employer]/results. Additional description of the Cologuard test process, warnings and precautions can be found at www.[employer].com. Stool specimen (specimen) Rectum structure / Unknown 09/23/2024 12:30 PM EDT 09/26/2024 10:57 AM EDT us Harlan Ruiz DO LAB ORDERABLES Final Result [employer] (CLIA #:[id number]) [address] [place] [address], * HM MAMMOGRAPHY (12/16/2021) Anatomical Region Laterality Modality Other us Not In System Ref Prov HEALTH MAINTENANCE Final Result from Last 3 Months or Most Recently Relevant to Health Maintenance Insurance [employer] MEDICARE Advance Directives * Full Code (Latest Code Status on File) Date Activated Date Inactivated Comments 01/12/2020 12:09 AM 01/12/2020 7:07 PM Care Teams Checker Cashier Relationship Specialty Start Date End Date Harlan Ruiz DO [address] [place] [address] PCP - General Family Medicine 01/11/20
--- OUTSIDE RECORDS SUMMARY | 2024-10-05 10:22 | XMS_ITS | Clinical Summary ---
Author Organization [facility] Address [address] [place] [address] Care Team Providers Care Rectifying Attendant Name Role Phone Harlan Ruiz MD Primary Care Provider Allergies No known active allergies Medications busPIRone (Buspar) 10 MG tablet Take 10 mg by mouth in the morning and 10 mg in the evening and 10 mg before bedtime. Active DULoxetine (Cymbalta) [address] capsule Take 120 mg by mouth Daily Active lamoTRIgine (LaMICtal XR) 100 mg tablet sustained-relea se 24 hour 24 hr tablet Take 100 mg by mouth in the morning and 100 mg before bedtime. Active rOPINIRole (Requip) 1 MG tabletIndicatio ns:Restless leg 1 tablet in the morning and 3 tablets qhs 120 tablet 2 4 Active Cariprazine HCl 4.5 MG capsule Take 1 capsule by mouth Daily 5 Active primidone (Mysoline) 50 MG tabletIndicatio ns:Tremor, essential TAKE 2 TABLETS BY MOUTH AT BEDTIME 60 tablet 2 5 Active multivitamin with minerals (Centrum) 9-200 mg-mcg tablet split tablet 1 tablet 5 Active Calcium Carb-Cholecalci ferol (CALCIUM CARBONATE-VITAM IN D3 PO) 1 tablet 5 Active hydrOXYzine pamoate (Vistaril) 50 MG capsule Take 50 mg by mouth every 8 (eight) hours if needed 09/19/19 25 Discontinu ed(Therapy completed) Active Problems Problem Noted Date Diagnosed Date Status post laparotomy with lysis of adhesions 0 09/18/2024 Obesity (BMI 30-39.9) 10/04/2023 Hypertension 10/02/2023 Hypersomnia 10/02/2023 Obesity 10/02/2023 Restless leg syndrome 10/02/2023 Tremor 10/02/2023 Essential tremor 10/02/2023 Memory loss 10/02/2023 Obstructive sleep apnea 10/02/2023 Other specified forms of tremor 10/02/2023 Major depressive disorder 10/02/2023 Primary insomnia 10/02/2023 Cerebrospinal fluid otorrhea 11/04/2022 ETD (Eustachian tube dysfunction), right 023 Other specified hearing loss, right ear 07/21/19 23 Resolved Problems Problem Noted Date Diagnosed Date Resolved Date Arthritis of left knee 07/20/202207/20 Internal derangement of left knee 07/20/2022 07/20/2022 Osteoarthritis of knee 07/20/202207/20 Encounters Date Type Department Care Team Description 10/02/2024 10:00 AM EDT Office Visit [facility] [address] [place] [phone] Vini Womack MD Status post laparotomy with lysis of adhesions (Primary Dx) 10/02/2024 Travel 09/26/2024 Travel 09/19/2024 Travel 09/18/2024 11:00 AM EDT Office Visit [facility] [address] [place] [phone] Vini Womack MD Status post laparotomy with lysis of adhesions (Primary Dx) 09/18/2024 Travel 09/15/2024 Travel 09/06/2024 Travel 09/04/2024 Travel 09/01/2024 External Result Encounter [facility] External Department Unsolicited Vini Womack MD 09/01/2024 External Result Encounter [facility] External Department Unsolicited Vini Womack MD 07/06/2024 2:00 PM EDT Ancillary Procedure [facility] [address] [place] [address] 07/06/2024 2:00 PM EDT Office Visit [facility] [place] [phone] Clinton Bolanos, OLEG Primary osteoarthritis of left knee (Primary Dx); Chronic pain of left knee; Chronic pain of right knee; Primary osteoarthritis of right knee 07/06/2024 1:55 PM EDT Ancillary Procedure [facility] [address] [place] [address] 07/06/2024 Refill [facility] [address] [place] [address] Katelyn Toney, DO Tremor, essential 07/06/2024 Bamboo flowsheet [facility] [address] [place] [address] Clinton Bolanos NP 07/06/2024 Travel from Last 3 Months Family History Medical History Relation Name Comments Accidental Mother MVA- car ac cident Relation Name Status Comments Father Alive Mother Social History Tobacco Use Types Packs/Day Years Used Date Smoking Tobacco: Never Smokeless Tobacco: Never Tobacco Cessation:Counseling Given: Not Answered Alcohol Use Standard Drinks/Week Comments Not Currently 0 (1 standard drink = 0.6 oz pur e alcohol) Comments Unknown Sex and Gender Information Value Date Recorded Sex Assigned at Not on file Legal Sex Female 7:37 PM EDT Gender Identity Not on file Sexual Orientation Not on file Last Filed Vital Signs Vital Sign Reading Time Taken Comments Blood Pressure 120/66 09/18/2024 10:34 AM EDT Pulse 82 12/21/2023 10:08 AM EDT Temperature - - Respiratory Rate - - Oxygen Saturation 97% 12/21/2023 10:08 AM EDT Inhaled Oxygen Concentration - - Weight 100 kg (221 lb) 10/02/2024 9:54 AM EDT Height 167.6 cm (5' 6 ) 10/02/2024 9:54 AM EDT Body Mass Index 35.67 10/02/2024 9:54 AM EDT Plan of Treatment Upcoming Encounters Date Type Department Care Team (Late st Contact Info) Description 11/13/2024 9:45 AM EDT Office Visit [facility] [address] [address] Vini Womack MD [address] [address] Procedures Procedure Name Priority Date/Time Associated Diagnosis Comments BASIC METABOLIC PANEL Routine 09/01/2024 5:29 AM EDT HEMOGRAM CBC WITHOUT DIFF ([facility] Routine 09/01/2024 5:29 AM EDT HI ARTHROCENTESIS ASPIR&/INJ MAJOR JT/BURSA W/O US Routine 07/06/2024 2:07 PM EDT Primary osteoarthritis of right knee HI ARTHROCENTESIS ASPIR&/INJ MAJOR JT/BURSA W/O US Routine 07/06/2024 2:07 PM EDT Primary osteoarthritis of left knee XR KNEE 1-2 VIEWS RIGHT Routine 07/06/2024 1:51 PM EDT Chronic pain of right knee XR KNEE 1-2 VIEWS LEFT Routine 1:50 PM EDT Chronic pain of left knee from Last 3 Months Results * (ABNORMAL) HEMOGRAM CBC WITHOUT DIFF ([facility]) (09/01/2024 5:29 AM EDT) [facility] Signature WBC 12.9(H) 3.8 - 11.6 [CFU]/mL 09/01/2024 6:08 AM EDT [facility] RBC 4.78 3.60 - 5.00 10*6/uL 09/01/2024 6:08 AM EDT [facility] HEMOGLOBIN 13.9 11.8 - 15.4 g/dL 09/01/2024 6:08 AM EDT [facility] HEMATOCRIT 42.3 34.0 - 46.4 % 09/01/2024 6:08 AM EDT [facility] MCV 88.4 80 - 100 fL 09/01/2024 6:08 AM EDT [facility] MCH 29.0 24.7 - 34.3 pg 09/01/2024 6:08 AM EDT [facility] MCHC 32.9 32.0 - 35.0 g/dL 09/01/2024 6:08 AM EDT [facility] RED CELL DISTRIBUTION WIDTH, RDW 13.9 11.9 - 15.3 % 09/01/2024 6:08 AM EDT [facility] PLATELET COUNT 277 150 - 450 10*3/uL 09/01/2024 6:08 AM EDT [facility] MEAN PLATELET VOLUME, MPV 7.4 6.3 - 10.7 fL 09/01/2024 6:08 AM EDT [facility] Blood (Blood) 09/01/2024 5:2 9 AM EDT 09/01/2024 5:57 AM EDT Vini Chacon MD LAB BLOOD ORDERABLES Final R esult Performing Organization Address City/State/[facility] Co de Phone Number [facility] [address] [id number], [facility] [address] [phone] * (ABNORMAL) Basic metabolic panel (09/01/2024 5:29 AM EDT) Glucose 140(H) 70 - 100 mg/dL 09/01/2024 6:32 AM T [facility] Comment: Random Glucose Reference Range is dependent on time and content of last meal. Glucose of more than 200 mg/dL in a nonstressed, ambulatory subject supports the diagnosis of Diabetes Mellitus. ADA recommended reference range BUN 19 7 - 25 mg/dL 09/01/2024 6:32 AM EDT [facility] CREATININE 0.62 0.60 - 1.20 mg/dL 09/01/2024 6:32 AM EDT [facility] ESTIMATED GFR >60.0 09/01/2024 6:32 AM EDT [facility] Sodium 139 136 - 145 mmol/L [facility] 4.2 3.5 - 5.1 mmol/L 09/01/2024 6:32 AM EDT [facility] Chloride 105 98 - 107 mmol/L 09/01/2024 6:32 AM EDT [facility] Carbon Dioxide 28.8 21.0 - 31.0 mmol/L 09/01/2024 6:32 AM EDT [facility] Anion Gap 9.4 6.0 - 15.0 09/01/2024 6:32 AM EDT [facility] Calcium 8.4(L) 8.6 - 10.3 mg/dL 09/01/2024 6:32 AM EDT [facility] CREATININE CLR [facility] 116.96 09/01/2024 6:32 AM EDT [facility] Other Topography unknown / Unknown 09/01/2024 5:29 AM EDT 09/01/2024 5:57 AM EDT us Vini Chacon MD LAB BLOOD ORDERABLES Final R esult Performing Organization Address [facility]/State/[facility] Co de Phone Number [facility] [address] [place] [address], [facility] [address] [phone] * HI ARTHROCENTESIS ASPIR&/INJ MAJOR JT/BURSA W/O US (07/06/2024 2:07 PM EDT) Narrative Clinton Bolanos NP - 07/06/2024 2:07 PM EDT Clinton Bolanos NP 07/06/2024 2:09 PM L Inj/Asp: R knee on 07/06/2024 2:07 PM Indications: pain Details: 21 G needle, anterolateral approach Medications: 40 mg methylPREDNISolone acetate 40 MG/ML Outcome: tolerated well, no immediate complications Site cleaned with isopropyl alcohol Procedure, treatment alternatives, risks and benefits explained, specific risks discussed. Consent was given by the patient. us Clinton Bolanos NP IN CLINIC/BEDSIDE ORDERABLES Fi nal Result * HI ARTHROCENTESIS ASPIR&/INJ MAJOR JT/BURSA W/O US (07/06/2024 2:07 PM EDT) Clinton Mccarthy NP - 07/06/2024 2:07 PM EDT Clinton Bolanos NP 07/06/2024 2:09 PM L Inj/Asp: L knee on 07/06/2024 2:07 PM Indications: pain Details: 21 G needle, anterolateral approach Medications: 40 mg methylPREDNISolone acetate 40 MG/ML Outcome: tolerated well, no immediate complications Site was cleaned with isopropyl alcohol Procedure, treatment alternatives, risks and benefits explained, specific risks discussed. Consent was given by the patient. Result [facility] Clinton Bolanos NP IN CLINIC/BEDSIDE ORDERABLES Fi nal Result * XR knee 1 or 2 views right (07/06/2024 1:51 PM EDT) Anatomical Region Laterality Modality Lower Extremities, Knee Right Radiogra phic Imaging Narrative 07/06/2024 2:06 PM EDT Imaging Result: 07/06/2024: AP and lateral views of right knee showed severe osteoarthritis with valgus deformity with near botn-ny-hkqg articulation, flattening of the articular surfaces to the medial joint line lateral joint line and patellofemoral joint. Subchondral sclerosis was noted at the medial joint line surfaces as well as the lateral joint line and patellofemoral joint. Marginal osteophytic formation was noted tricompartmentally. There is no evidence of fracture or dislocation. Impression: severe degenerative joint disease right knee with valgus deformity Clinton DONOVAN Result [facility] Clinton Bolanos NP IMG XR PROCEDURES Final Result * XR knee 1 or 2 views left (07/06/2024 1:50 PM EDT) Anatomical Region Laterality Modality Lower Extremities, Knee Left Radiogra phic Imaging Narrative 07/06/2024 2:06 PM EDT Imaging Result: 07/06/2024: AP and lateral views of left knee showed severe osteoarthritis with valgus deformity with hlsh-vl-chfy articulation, flattening of the articular surfaces to the medial joint line lateral joint line and patellofemoral joint. Subchondral sclerosis was noted at the medial joint line surfaces as well as the lateral joint line and patellofemoral joint. Marginal osteophytic formation was noted tricompartmentally. There is no evidence of fracture or dislocation. Impression: severe degenerative joint disease left knee with valgus deformity Clinton DONOVAN Clinton Bolanos NP IMG XR PROCEDURES Final Result from Last 3 Months Insurance [employer] MED[employer] Care Teams Rectifying Attendant Relationship Specialty Start Date End Date Harlan Ruiz MD [address], [place] [address] PCP - General Family Medicine 09/04/24
--- OUTSIDE RECORDS SUMMARY | 2024-10-05 10:22 | XMS_ITS | Encounter Summary ---
Author Organization [facility] [employer] s tem Address [id number] [address] [place] [address] Care Team Providers Care Welder Fitter Name Role Phone JenniferHarlan angel Primary Care Provider + [phone] Encounter Details Date Type Department Care Team (Late st Contact Info) Description 04/16/2023 Orders Only [facility] - Family Medicine [address] [place] [address] External, Scanning Provider Social History Tobacco Use Types Packs/Day Years Used Date Smoking Tobacco: Never Smokeless Tobacco: Never Alcohol Use Standard Drinks/Week Comments Never 0 (1 standard drink = 0.6 oz pur e alcohol) [facility] Utilities Answer Date Recorded In the past 12 months has e electric, gas, oil, or water company threatened to shut off services in your [...] often do you attend chur ch or scientology services? More than 4 times per year 02/11/2023 Do you belong to any clubs o r organizations such as mormonism groups, unions, fraternal or athletic groups, or [...] Answer Date Recorded Total Score 0 03/24/2023 [facility] - Occupational Stress [...] Recorded Do you need help finding a college medical centeral career center and/or a training [...] - Family Medicine [address] [place] [address] Harlan Ruiz DO [address], [place] [address] documented as of this encounter Procedures Procedure Name Priority Date/Time Associated Diagnosis Comments SURGICAL PATHOLOGY Routine 04/14/2023 12 :37 PM EST ENDOSCOPIC ULTRASONOGRAPHY, GI UPPER Routine 04/14/2023 12:34 PM EST MULTIPLE LABS Routine 04/13/2023 12:39 PM EST documented in this encounter Results * Surgical Pathology (04/14/2023 12:37 PM EST) us Scanning Provider External PATHOLOGY/CYTOLOGY OR DERABLES Final Result Performing Organization Address [facility] de Phone Number MANUALLY TRANSCRIBED RESULTS * Endoscopic Ultrasonography, GI Upper (04/14/2023 12:34 PM EST) us Scanning Provider External GI PROCEDURE ORDERABL ES Final Result Performing Organization Address [facility] de Phone Number MANUALLY TRANSCRIBED RESULTS * Multiple labs (04/13/2023 12:39 PM EST) us Scanning Provider External OK IMAGING Final Result Performing Organization Address [facility] de Phone Number MANUALLY TRANSCRIBED RESULTS documented in this encounter Visit Diagnoses Not on filedocumented in this encounter Additional Health Concerns Assessment Noted Time PHQ-9 Depression Total Score: 0 03/24/19 24 8:53 AM EST documented as of this encounter Care Teams Welder Fitter Relationship Specialty Start Date End Date Harlan Ruiz DO [address], [place] [address] PCP - General Family Medicine 01/11/20 documented as of this encounter
--- OUTSIDE RECORDS SUMMARY | 2024-10-05 10:22 | XMS_ITS | Encounter Summary ---
Author Organization [employer] [facility] tem Address [id number] [address] [place] [address] Care Team Providers Care Coat Joiner Lockstitch Name Role Phone Harlan Ruiz DO Primary Care Provider + [phone] Encounter Details Date Type Department Care Team (Late st Contact Info) Description 12/22/2022 Telephone [facility] Internal [facility] - Family Medicine [address] [place] [phone] Demetrice Quinones CMA Social History Tobacco Use Types Packs/Day Years [...] Telephone Encounter - Demetrice Quinones CMA - 12/22/2022 3:04 PM EDT Patient is scheduled for her Stress Test Dec 25 at 7:45am your time. documented in this encounter Plan of Treatment Upcoming Encounters Date Type Department Care Team (Late st Contact Info) Description 11/16/2024 2:15 PM EDT Office Visit [facility] - Family Medicine [address] [place] [address] Harlan Ruiz DO [address], [facility] [place] [address] documented as of this encounter Visit Diagnoses Not on filedocumented in this encounter Additional Health Concerns Assessment Noted Time PHQ-9 Depression Total Score: 0 12/11/19 23 4:06 PM EDT documented as of this encounter Care Teams Coat Joiner Lockstitch Relationship Specialty Start Date End Date Harlan Ruiz DO [address], [facility] [place] [address] PCP - General Family Medicine 01/11/20 documented as of this encounter
--- OUTSIDE RECORDS SUMMARY | 2024-10-05 10:22 | XMS_ITS | Encounter Summary ---
Author [facility] Address [id number] [address] [place] [address] Care Team Providers Care Staffing Rn Name Role Phone Harlan Ruiz Primary Care Provider + [phone] Encounter Details Date Type Department Care Team (Late st Contact Info) Description 11/30/2022 Telephone [facility] - Family Medicine [address] [place] [phone] Celina Self, BLOCK SAW OPERATOR-LOUVER DOOR ASSEMBLER [address] [facility] [place] [address] Social History Tobacco Use Types Packs/Day Years [...] PHQ-2 Answer Date Recorded Total Score 0 11/18/2022 Childcare Answer Date Recorded Childcare Unknown 01/11/2020 [...] encounter Miscellaneous Notes * Telephone Encounter - Ruby Sharp - 11/30/2022 9:16 AM EDT Patient called and she tested positive for covid, sinus and sore throat, her also just tested positive and tried to do a video visit but would not work with [facility], their phone would not connect, so she asked if you could send something in for her since they had complications with the videovisit. If not she said she would try the video again * Telephone Encounter - FISH Rowe - 11/30/2022 9:16 AM EDT Without speaking to them how am I supposed to know what to send in for them documented in this encounter Plan of Treatment Upcoming Encounters Date Type Department Care Team (Late st Contact Info) Description 11/16/2024 2:15 PM EDT Office Visit [facility] - Family Medicine [address] [place] [address] Harlan Ruiz DO [address] [facility] [place] [address] documented as of this encounter Visit Diagnoses Not on filedocumented in this encounter Additional Health Concerns Assessment Noted Time PHQ-9 Depression Total Score: 0 11/19/19 23 2:18 PM EDT documented as of this encounter Care Teams Staffing Rn Relationship Specialty Start Date End Date Harlan Ruiz DO [address] [facility] [place] [address] PCP - General Family Medicine 01/11/20 documented as of this encounter
--- OUTSIDE RECORDS SUMMARY | 2024-10-05 10:23 | XMS_ITS | Encounter Summary ---
Author Organization [facility] Address [address] [place] [phone] Phone Care Team Providers Care Button Breaker Operator Name Role Phone Harlan Ruiz DO Primary Care Provider Encounter Details Date Type Department Care Team (Late st Contact Info) Description 12/03/2022 Scanned Document [facility] [address] [place] [address] Conversion, Onbase Social History Tobacco Use Types Packs/Day Years Used Date Smoking Tobacco: Never Assessed Comments Unknown Sex and Gender Information Value Date Recorded Sex Assigned at Not on file Legal Sex Female 11:01 AM EDT Gender Identity Not on file Sexual Orientation Not on file documented as of this encounter Plan of Treatment Not on file documented as of this encounter Visit Diagnoses Not on filedocumented in this encounter Care Teams Button Breaker Operator Relationship Specialty Start Date End Date Harlan Ruiz DO PCP - General Family Medicine 12/09/22 documented as of this encounter
--- OUTSIDE RECORDS SUMMARY | 2024-10-05 10:23 | XMS_ITS | Encounter Summary ---
Author Organization [facility] tem Address [id number] [address] [place] [address] Care Team Providers Care Baccarat Manager Name Role Phone Harlan Ruiz DO Primary Care Provider + [phone] Encounter Details Date Type Department Care Team ([facility] Contact Info) Description 12/16/2021 [facility] Medicine [address] [place] [address] Ref Prov, [place] [address] Social History Tobacco Use Types Packs/Day Years [...] Upcoming Encounters Date Type Department Care Team ([facility] Contact Info) Description 11/16/2024 2:15 PM EDT Office Visit [facility] - Family Medicine [address] [place] [address] Harlan Ruiz DO [address], [place] [address] documented as of this encounter Procedures Procedure Name Priority Date/Time Associated Diagnosis Comments HM MAMMOGRAPHY Routine 12/16/2021 documented in this encounter Results * HM MAMMOGRAPHY (12/16/2021) Anatomical Region Laterality Modality Other us Not In System Ref Prov HEALTH MAINTENANCE Final Result documented in this encounter Visit Diagnoses Not on filedocumented in this encounter Care Teams Baccarat Manager Relationship Specialty Start Date End Date Harlan Ruiz DO [address] [place] [address] PCP - General Family Medicine 01/11/20 documented as of this encounter
--- OUTSIDE RECORDS SUMMARY | 2024-10-05 10:23 | XMS_ITS | Encounter Summary ---
Author Organization [facility] tem Address [id number] [address] [place] [address] Care Team Providers Care Digital Campaign Specialist Name Role Phone Harlan Ruiz DO Primary Care Provider + [phone] Encounter Details Date Type Department Care Team ([facility] Contact Info) Description 11/27/2021 [facility] [address] [place] [address] External, Scanning Provider Social History Tobacco Use Types Packs/Day Years Used Date Smoking Tobacco: Former Smokeless Tobacco: Never Alcohol Use Standard Drinks/Week [...] Upcoming Encounters Date Type Department Care Team ([facility] Contact Info) Description 11/16/2024 2:15 PM EDT [facility] [address] [place] [address] Harlan Ruiz DO [address] [place] [address] documented as of this encounter Procedures Procedure Name Priority Date/Time Associated Diagnosis Comments HEMOGLOBIN A1C Routine 11/24/2021 LIPID PROFILE Routine 11/24/2021 COMPREHENSIVE METABOLIC PANEL Routine 11/24/2021 documented in this encounter Results * (ABNORMAL) Lipid profile (11/24/2021) External Cholesterol 201(A) <=200 MANUALLY TRANSCRIBED RESULTS External Cholesterol:Hdl 3.4 MANUALLY TRANSCRIBED RESULTS External Hdl Cholesterol 60 40 - 60 MANUALLY TRANSCRIBED RESULTS External Ldl (Calc) 111 MANUALLY TRANSCRIBED RESULTS External Triglycerides 150 <150 MANUALLY TRANSCRIBED RESULTS 11/24/2021 us Scanning Provider External LAB BLOOD ORDERABLES Final Result Performing Organization Address [facility] Co de Phone Number MANUALLY TRANSCRIBED RESULTS * Hemoglobin A1c (11/24/2021) External Hemoglobin A1C 6.0 4.5 - 6.2 % MANUALLY TRANSCRIBED RESULTS 11/24/2021 us Scanning Provider External LAB BLOOD ORDERABLES Final Result Performing Organization Address [facility] Co de Phone Number MANUALLY TRANSCRIBED RESULTS * Comprehensive metabolic panel (11/24/2021) 11/24/2021 us Scanning Provider External LAB BLOOD ORDERABLES Final Result Performing Organization Address [facility] Co de Phone Number MANUALLY TRANSCRIBED RESULTS documented in this encounter Visit Diagnoses Not on filedocumented in this encounter Care Teams Digital Campaign Specialist Relationship Specialty Start Date End Date Harlan Ruiz DO [address] [place] [address] PCP - General Family Medicine 01/11/20 documented as of this encounter
--- OUTSIDE RECORDS SUMMARY | 2024-10-05 10:23 | XMS_ITS | Encounter Summary ---
Author Organization [facility] Address [address] [place] [address] Care Team Providers Care Strapper Name Role Phone Harlan Ruiz MD Primary Care Provider + [phone] Harlan Ruiz MD Primary Care Provider + [phone] Encounter Details Date Type Department Care Team (Late Contact Info) Description 09/11/2022 Abstract [facility] [address] [facility] [address] [place] [address] Daily Alejandra MA Social History Tobacco Use Types Packs/Day [...] Exposure Response Date Recorded In the last 10 days, have yo u been in contact with someone who was confirmed or suspected to have Coronavirus/COVID-19? No / Unsure 09/02/2022 8:59 AM EDT documented as of this encounter Plan of Treatment Upcoming Encounters Date Type Department Care Team (Late Contact Info) Description 11/13/2024 9:45 AM EDT Office Visit [facility] [address] [facility] [address] [place] [address] Vini Womack MD [address] [facility] [address] [place] [address] documented as of this encounter Visit Diagnoses Not on filedocumented in this encounter Care Teams Strapper Relationship Specialty Start Date End Date Harlan Ruiz MD PCP - General Family Medicine 07/29/22 09/03/24 Harlan Ruiz MD [address] [facility] [place] [address] PCP - General Family Medicine 09/04/24 documented as of this encounter
--- OUTSIDE RECORDS SUMMARY | 2024-10-05 10:23 | XMS_ITS | Encounter Summary ---
Author Organization [facility] [employer] s tem Address [id number] [address] [place] [address] Care Team Providers Care Photo Tube Assembler Name Role Phone Harlan Ruiz DO Primary Care Provider + [phone] Reason for Visit * Reason Comments Med Refill Encounter Details Date Type Department Care Team ([facility] Contact Info) Description 09/06/2022 Refill [facility] Internal [facility] - Family Medicine [address] [place] [phone] Celina Self, WIND FIELD MANAGER-BUSINESS DEVELOPMENT SPECIALIST [address] [place] [address] Social History Tobacco Use Types Packs/Day Years [...] Upcoming Encounters Date Type Department Care Team ([facility] Contact Info) Description 11/16/2024 2:15 PM EDT Office Visit [facility] - Family Medicine [address] [place] [address] Harlan Ruiz DO [address] [facility] [place] [address] documented as of this encounter Visit Diagnoses Not on filedocumented in this encounter Additional Health Concerns Assessment Noted Time PHQ-9 Depression Total Score: 0 08/01/19 23 9:53 AM EDT documented as of this encounter Care Teams Photo Tube Assembler Relationship Specialty Start Date End Date Harlan Ruiz DO [address] [facility] [place] [address] PCP - General Family Medicine 01/11/20 documented as of this encounter
--- OUTSIDE RECORDS SUMMARY | 2024-10-05 10:23 | XMS_ITS | Encounter Summary ---
Author Organization [employer] s tem Address [id number] [address] [place] [address] Care Team Providers Care Hostel Manager Name Role Phone Harlan Ruiz DO Primary Care Provider + [phone] Encounter Details Date Type Department Care Team ([facility] Contact Info) Description 08/17/2022 [facility] Only [facility] Medicine [address] [place] [address] Ref Prov, [place] [address] Social History Tobacco Use Types Packs/Day Years [...] Upcoming Encounters Date Type Department Care Team ([facility] Contact Info) Description 11/16/2024 2:15 PM EDT [facility] Medicine [address] [place] [address] Harlan Ruiz DO [address], [place] [address] documented as of this encounter Procedures Procedure Name Priority Date/Time Associated Diagnosis Comments MR BRAIN W WO CONT Routine 08/14/2022 documented in this encounter Results * MR brain with and without contrast (08/14/2022) Anatomical Region Laterality Modality Neuro, Head, Head and Neck, Neuro Covera N/A Magnetic Resonance us Not In System Ref Prov IMG MRI ORDERABLES Final Result documented in this encounter Visit Diagnoses Not on filedocumented in this encounter Additional Health Concerns Assessment Noted Time PHQ-9 Depression Total Score: 0 08/01/19 23 9:53 AM EDT documented as of this encounter Care Teams Hostel Manager Relationship Specialty Start Date End Date Harlan Ruiz DO [address], [facility] [address] PCP - General Family Medicine 01/11/20 documented as of this encounter
--- OUTSIDE RECORDS SUMMARY | 2024-10-05 10:23 | XMS_ITS | Encounter Summary ---
Author Organization [facility] [employer] tem Address [id number] [address] [place] [address] Care Team Providers Care Stripper Machine Operator Name Role Phone Harlan Ruiz DO Primary Care Provider + [phone] Reason for Visit * Reason Comments Med Refill Encounter Details Date Type Department Care Team ([facility] Contact Info) Description 08/28/2022 Refill [facility] - Family Medicine [address] [place] [address] Celina Self, ANGIO TECHNOLOGIST-FUEL CELL ENGINEER [address] [place] [address] Social History Tobacco Use Types Packs/Day Years [...] Upcoming Encounters Date Type Department Care Team ([facility] Contact Info) Description 11/16/2024 2:15 PM EDT Office Visit [facility] - Family Medicine [address] [place] [address] Harlan Ruiz DO [address] [facility] [place] [address] documented as of this encounter Visit Diagnoses Not on filedocumented in this encounter Additional Health Concerns Assessment Noted Time PHQ-9 Depression Total Score: 0 08/01/19 23 9:53 AM EDT documented as of this encounter Care Teams Stripper Machine Operator Relationship Specialty Start Date End Date Harlan Ruiz DO [address] [facility] [place] [address] PCP - General Family Medicine 01/11/20 documented as of this encounter
--- OUTSIDE RECORDS SUMMARY | 2024-10-05 10:23 | XMS_ITS | Clinical Summary ---
Author Organization [facility] Address [address] [place] [address] Phone Care Team Providers Care Fac Engineer Name Role Phone JenniferHarlan angel Primary Care Provider Allergies No known active allergies Medications lamoTRIgine (LaMICtal) 100 mg tablet Take 1 tablet (100 mg) by mouth 2 times a day. 12/22/2022 Active amLODIPine (Norvasc) 10 mg tablet Take 1 tablet (10 mg) by mouth once daily. Active busPIRone (Buspar) 10 mg tablet Take 1 tablet (10 mg) by mouth 2 times a day. 12/17/2022 Active DULoxetine (Cymbalta) [address] capsule Take 2 capsules (120 mg) by mouth once daily. Active rOPINIRole (Requip) 1 mg tablet 1 tablet (1 mg). Take 1 tablet by mouth 1 am and 2 pm Active primidone (Mysoline) 50 mg tablet Take 1 tablet by mouth in am and 3 tablets in pm Active levETIRAcetam (Keppra) 500 mg tabletIndicatio ns:CSF leak Take 1 tablet (500 mg) by mouth 2 times a day for 7 days. 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 Immunizations Immunization Administration Dates Next Due DTP 04/25/2020 Flu vaccine (IIV4), preserva tive free *Check age/dose* 12/11/2022,12/08/2021,12/03/2020,2019,10/08/2018,12/25/2017 Flu vaccine, quadrivalent, n o egg protein, age 6 month or greater (FLUCELVAX) 03/18/2017 Hepatitis B vaccine, adult * Check Product/Dose* 07/21/2002,03/03/2002,01/13/2002 Zoster vaccine, recombinant, adult (SHINGRIX) 02/07/2021,12/03/2020 Family History Medical History Relation Name Comments COPD Father motor vehicle accident Mother Relation Name Status Comments Father Mother Social History Tobacco Use Types Packs/Day Years Used Date Smoking Tobacco: Never Smokeless Tobacco: Never Tobacco Cessation:Counseling Given: Not Answered Alcohol Use Standard Drinks/Week Comments Yes 0 (1 standard drink = 0.6 oz pur e alcohol) rare glass of wine AUDIT-C Answer Date Recorded Q1: How often do you have a drink containing alcohol? Never 02/22/2023 Q2: How many drinks containi ng alcohol do you have on a typical day when you are drinking? Patient does not drink Q3: How often do you have si x or more drinks on one occasion? Never 02/22/2023 Overall Financial Resource Strain (CARDIA) Answe r Date Recorded How hard is it for you to pa y for the very basics like food, housing, medical care, and heating? Patient declined 02/22/2023 PHQ-2 Answer Date Recorded Patient Health Questionnaire-2 Score 0 03/16/2023 PRAPARE - Transportation Answer Date Re corded In the past 12 months, has l ack of transportation kept you from medical appointments or from getting medications? Patient declined 02/22/2023 In the past 12 months, has l ack of transportation kept you from meetings, work, or from getting things needed for daily living? Patient declined 02/22/2023 Housing Stability Vital Sign Answer Edison e Recorded In the last 12 months, was t here a time when you were not able to pay the mortgage or rent on time? Patient declined 02/23/20 23 In the last 12 months, how many places have you lived? 1 02/22/2023 In the last 12 months, was t here a time when you did not have a steady place to sleep or slept in a detention (including now)? Patient declined 02/22/2023 Comments Unknown Sex and Gender Information Value Date Recorded Sex Assigned at Not on file Legal Sex Female 11:01 AM EDT Gender Identity Not on file Sexual Orientation Not on file Last Filed Vital Signs Vital Sign Reading Time Taken Comments Blood Pressure 131/75 07/08/2023 9:43 AM EDT Pulse 85 07/08/2023 9:43 AM EDT Temperature 36.8 C (98.3 F) 07/08/2023 9:43 AM EDT Respiratory Rate 16 07/08/2023 9:43 AM EDT Oxygen Saturation 96% 07/08/2023 9:43 AM EDT Inhaled Oxygen Concentration - - Weight 115 kg (254 lb) 07/08/2023 9:43 AM EDT Height 167.6 cm (5' 6 ) 07/08/2023 9:43 AM EDT Body Mass Index 41 07/08/2023 9:43 AM EDT Plan of Treatment Health Maintenance Due Date Last Done Comments CT Colonography 1964 Colonoscopy 1964 Colorectal Cancer Screening 1964 FIT-DNA (Cologuard) 1964 FIT 1964 HIV Screening 1964 Lipid Panel 1964 Sigmoidoscopy 1964 MMR Vaccines (1 of 1 - Standard series) 1965 Hepatitis C Screening 1982 Pneumococcal Vaccine (1 of 2 - PCV) 1983 Cervical Cancer Screening 1985 HPV/Cotest 1985 Pap Smear 1985 Mammogram 2004 COVID-19 Vaccine ( - season) 2023 Medicare Annual Wellness Visit (AWV) 02/13/2024 02/11/2023 RSV High Risk: (Elderly (60+) or Population) (1 - Risk 60-74 years 1-dose series) 2024 Influenza Vaccine (#1) 2024 3, 12/08/2021, 12/03/2020, Additional history exists Diabetes Screening 02/25/2026 02/25/2023, 1 04/27/2022, 02/24/2023, Additional history exists DTaP/Tdap/Td Vaccines (2 - Tdap) 04/25/2030 04/25/2020 Hepatitis B Vaccines Completed 07/21/2002, 03/03/2002, 01/13/2002 Zoster Vaccines Completed 02/07/2021, 12/03/2020 HIB Vaccines Aged Out No longer eligi ble based on patient's age to complete this topic HPV Vaccines Aged Out No longer eligi ble based on patient's age to complete this topic Hepatitis A Vaccines Aged Out No long er eligible based on patient's age to complete this topic IPV Vaccines Aged Out No longer eligi ble based on patient's age to complete this topic Meningococcal Vaccine Aged Out No moy louisa eligible based on patient's age to complete this topic Rotavirus Vaccines Aged Out No longer eligible based on patient's age to complete this topic Medical Devices Implanted Type Area Towboat Engineer Device Identifier Shelf Expiration Date Model / Serial / Lot Graft Matrix, Dural, Duragen Plus 2x2 (1/Pk) - [id number] Implanted:Q ty: 1 on 02/22/2023 by Clayton Hawley MD at [facility] Graft Right: Cranial [employer]:NE UROSCI [id number] 12/05/2024 [id number] / / [id number] Cross Pin, Axs Self-Tap, 1.5 X 4mm - [id number] Implanted:Q ty: 8 on 02/22/2023 by Fercho Beverly MD at [facility] Neuro Interventional Implant Right: Cranial DIEGO BodBotF [id number] / / Plate, Yy 6h 8mm Bar Ultra Low Profile - [id number] Implanted:Q ty: 1 on 02/22/2023 by Fercho Beverly MD at [facility] Screw Right: Cranial DIEGO CMF [id number] / / Plate, 2h 10mm Bar Ultra Low Profile - [id number] Implanted:Q ty: 1 on 02/22/2023 by Fercho Beverly MD at [facility] Screw Right: Cranial DIEGO CMF [id number] / / Procedures Procedure Name Priority Date/Time Associated Diagnosis Comments RENAL FUNCTION PANEL Routine 02/25/2023 9:37 AM EST from Last 3 Months or Most Recently Relevant to Health Maintenance Results * (ABNORMAL) Renal function panel (02/25/2023 9:37 AM EST) [facility] Signature Glucose 121(H) 74 - 99 mg/dL LAB CHEMISTRY METHOD 02/25/2023 10:28 AM EST [facility] Sodium 138 136 - 145 mmol/L LAB CHEMISTRY METHOD 02/25/2023 10:28 AM EST [facility] Potassium 4.4 3.5 - 5.3 mmol/L LAB CHEMISTRY METHOD 02/25/2023 10:28 AM EST [facility] Chloride 100 98 - 107 mmol/L LAB CHEMISTRY METHOD 02/25/2023 10:28 AM EST [facility] Bicarbonate 29 21 - 32 mmol/L LAB CHEMISTRY METHOD 02/25/2023 10:28 AM EST [facility] Anion Gap 13 10 - 20 mmol/L LAB CHEMISTRY METHOD 02/25/2023 10:28 AM EST [facility] Urea Nitrogen 11 6 - 23 mg/dL LAB CHEMISTRY METHOD 02/25/2023 10:28 AM EST [facility] Creatinine 0.61 0.50 - 1.05 mg/dL LAB CHEMISTRY METHOD 02/25/2023 10:28 AM EST [facility] eGFR >90 >60 mL/min/1. 73m*2 LAB CHEMISTRY METHOD 02/25/2023 10:28 AM EST [facility] Comment: Calculations of estimated GFR are performed using the 2020 CKD-EPI Study Refit equation without the race variable for the IDMS-Traceable creatinine methods. https://jasn.asnjournals.org/content/early//ASN.8930288264 Calcium 9.2 8.6 - 10.6 mg/dL LAB CHEMISTRY METHOD 02/25/2023 10:28 AM EST [facility] Phosphorus 2.9 2.5 - 4.9 mg/dL LAB CHEMISTRY METHOD 02/25/2023 10:28 AM EST [facility] Comment:The performance hina acteristics of phosphorus testing in heparinized plasma have been validated by the individual laboratory site where testing is performed. Testing on heparinized plasma is not approved by the FDA; however, such approval is not necessary. Albumin 3.8 3.4 - 5.0 g/dL LAB CHEMISTRY METHOD 02/25/2023 10:28 AM EST [facility] Blood Venous blood specimen / Unknown Venipuncture / Unknown 02/25/2023 9:37 AM EST 02/25/2023 9:55 AM EST us Fercho Beverly MD LAB BLOOD ORDERABLES Final R esult [facility] [id number] [facility] [id number] [place], [place] [id number] from Last 3 Months or Most Recently Relevant to Health Maintenance Insurance [employer]ARE [employer]ARE Advance Directives For more information, please contact: [phone] (Available ) * Full Code (Latest Code Status on File) Date Activated Date Inactivated Comments 02/22/2023 12:56 PM Question Answer Comments Plan of Care: Code Status Discussion Completed Decision Maker: Patient Care Teams Fac Engineer Relationship Specialty Start Date End Date Harlan Ruiz DO PCP - General Family Medicine 12/09/22
--- OUTSIDE RECORDS SUMMARY | 2024-10-05 10:23 | XMS_ITS | Encounter Summary ---
Author Organization [facility] tem Address [id number] [address] [place] [address] Care Team Providers Care Full Fashioned Garment Knitter Name Role Phone Harlan Ruiz DO Primary Care Provider + [phone] Encounter Details Date Type Department Care Team ([facility] Contact Info) Description 10/13/2022 [facility] [address] [place] [id number] External, Scanning Provider Social History Tobacco Use [...] Type Department Care Team ([facility] Contact Info) Description 11/16/2024 2:15 PM EDT Office Visit [facility] Internal Medicine - Family Medicine [address] [place] [phone] Harlan Ruiz DO [address], [place] [address] documented as of this encounter Procedures Procedure Name Priority Date/Time Associated Diagnosis Comments XR CHEST 2 VWS Routine 10/12/2022 7:29 AM EDT documented in this encounter Results * X-ray chest 2 views (10/12/2022 7:29 AM EDT) Anatomical Region Laterality Modality Body, Chest N/A Computed Radiogr aphy us Scanning Provider External IMG DIAGNOSTIC IMAGIN G ORDERABLES Final Result documented in this encounter Visit Diagnoses Not on filedocumented in this encounter Additional Health Concerns Assessment Noted Time PHQ-9 Depression Total Score: 0 08/01/19 23 9:53 AM EDT documented as of this encounter Care Teams Full Fashioned Garment Knitter Relationship Specialty Start Date End Date Harlan Ruiz DO [address] [place] [address] PCP - General Family Medicine 01/11/20 documented as of this encounter
--- OUTSIDE RECORDS SUMMARY | 2024-10-05 10:23 | XMS_ITS | Encounter Summary ---
Author Organization [facility] tem Address [id number] [address] [place] [address] Care Team Providers Care Title Searcher Name Role Phone Harlan Ruiz DO Primary Care Provider + [phone] Encounter Details Date Type Department Care Team ([facility] Contact Info) Description 10/22/2022 [facility] - [facility] Medicine [address] [place] [address] Harlan Ruiz DO [address] [facility] [place] [address] Social History Tobacco Use Types Packs/Day Years [...] Upcoming Encounters Date Type Department Care Team ([facility] Contact Info) Description 11/16/2024 2:15 PM EDT Office Visit [facility] Internal Medicine - Family Medicine [address] [place] [address] Harlan Ruiz DO [address], [facility] [place] [address] documented as of this encounter Procedures Procedure Name Priority Date/Time Associated Diagnosis Comments CT TEMPORAL BONES WO CONT Routine 10/16/2022 3:[address] TEMPORAL BONES WO CONT Routine 10/16/2022 3:01 PM EDT documented in this encounter Results * CT temporal bones without contrast (10/16/2022 3:06 PM EDT) Anatomical Region Laterality Modality Neuro, Head, Head and Neck, Neuro Covera N/A Computed Tomography us Scanning Provider External IMG CT ORDERABLES Fin al Result * CT temporal bones without contrast (10/16/2022 3:01 PM EDT) Anatomical Region Laterality Modality Neuro, Head, Head and Neck, Neuro Covera N/A Computed Tomography us Scanning Provider External IMG CT ORDERABLES Fin al Result documented in this encounter Visit Diagnoses Not on filedocumented in this encounter Additional Health Concerns Assessment Noted Time PHQ-9 Depression Total Score: 0 08/01/19 23 9:53 AM EDT documented as of this encounter Care Teams Title Searcher Relationship Specialty Start Date End Date Harlan Ruiz DO [address] [facility] [place] [address] PCP - General Family Medicine 01/11/20 documented as of this encounter
--- OUTSIDE RECORDS SUMMARY | 2024-10-05 10:23 | XMS_ITS | Encounter Summary ---
Author Organization [employer] [facility] tem Address [id number] [address] [place] [address] Care Team Providers Care Undergraduate Intern Name Role Phone Harlan Ruiz Primary Care Provider + [phone] Encounter Details Date Type Department Care Team (Late st Contact Info) Description 10/12/2022 Telephone [facility] Internal Medicine - Family Medicine [address] [place] [phone] Katelyn Yañez CMA Social History Tobacco Use Types Packs/Day [...] encounter Miscellaneous Notes * Telephone Encounter - Katelyn Yañez CMA - 10/12/2022 11:54 AM EDT Pt was seen at urgent care in [place] but they did not do an XR of the chest. She is still strugglingwith breathing. Can you send an order to [facility]? * Telephone Encounter - Harlan Ruiz DO - 10/12/2022 11:54 AM EDT If she is struggling breathing she needs to go to the ER. * Telephone Encounter - Katelyn Yañez CMA - 10/12/2022 11:54 AM EDT Pt is currently at the ER now documented in this encounter Plan of Treatment Upcoming Encounters Date Type Department Care Team (Late st Contact Info) Description 11/16/2024 2:15 PM EDT Office Visit [facility] Internal Medicine - Family Medicine [address] [place] [address] Harlan Ruiz DO [address] [facility] [place] [address] documented as of this encounter Visit Diagnoses Not on filedocumented in this encounter Additional Health Concerns Assessment Noted Time PHQ-9 Depression Total Score: 0 08/01/19 23 9:53 AM EDT documented as of this encounter Care Teams Undergraduate Intern Relationship Specialty Start Date End Date Harlan Ruiz DO [address] [facility] [place] [address] PCP - General Family Medicine 01/11/20 documented as of this encounter
--- OUTSIDE RECORDS SUMMARY | 2024-10-05 10:23 | XMS_ITS | Encounter Summary ---
Author Organization [facility] [employer] [facility] tem Address [facility] [id number] [address] [place] [address] Care Team Providers Care Assembler Cards And Announcements Name Role Phone Harlan Ruiz DO Primary Care Provider + [phone] Encounter Details Date Type Department Care Team (Late Contact Info) Description 07/31/2022 Orders Only [facility] Internal Medicine - Family Medicine [address] [place] [address] Celina Self, CORROSION CONTROL TECHNICIAN-DATA MINING ANALYST [address] [place] [address] [place] [address] Social History Tobacco Use Types Packs/Day Years [...] Upcoming Encounters Date Type Department Care Team ([facility] Contact Info) Description 11/16/2024 2:15 PM EDT Office Visit [facility] Internal Medicine - Family Medicine [address] [place] [address] Harlan Ruiz DO [address] [place] [address] documented as of this encounter Procedures Procedure Name Priority Date/Time Associated Diagnosis Comments HEPATITIS C(HCV) ANTIBODY W/ REFLEX TO PCR Routine 09/01/2017 documented in this encounter Results * Hepatitis C(HCV) Ab w/ Reflex to PCR (09/01/2017) Celina Self CORROSION CONTROL TECHNICIAN-DATA MINING ANALYST LAB BLOOD ORDERABLES Final Result MANUALLY TRANSCRIBED RESULTS documented in this encounter Visit Diagnoses Not on filedocumented in this encounter Additional Health Concerns Assessment Noted Time PHQ-9 Depression Total Score: 0 08/01/19 23 9:53 AM EDT documented as of this encounter Care Teams Assembler Cards And Announcements Relationship Specialty Start Date End Date Harlan Ruiz DO [address] [place] [address] PCP - General Family Medicine 01/11/20 documented as of this encounter
== END 2024-10-05 10:20 | disposition home or self-care (01) ==
LOC: MAMMO 10:20
PROVIDERS: PCP Family Medicine; Visit Provider Family Medicine
DX: Z12.31 Encounter for screening mammogram for malignant neoplasm of breast (principal); Z80.1 Family history of malignant neoplasm of trachea, bronchus and lung
CPT/HCPCS: 77063; 77067